=== PATIENT | male | born 1955 | race Caucasian/White ===

== ENCOUNTER 2022-01-10 13:52 | Inpatient (IN) ==
[2022-01-10 15:00] LABS: Basophils # (auto) 0.05 K/uL (0-0.2); Basophils % (auto) 0.5 %; Eosinophils # (auto) 0.38 K/uL (0-0.5); Eosinophils % (auto) 3.9 %; Hematocrit (blood only) 31.1 % (42-52); Hemoglobin 10.1 g/dL (14.0-18.0); Immature Granulocytes # (auto) 0.08 K/uL (0.00-0.02); Immature Granulocytes % (auto) 0.8 %; Lymphocytes # (auto) 1.38 K/uL (1.2-3.4); Lymphocytes % (auto) 14.3 %; Mean Corpuscular Hemoglobin 32.2 pg (25-34); Mean Corpuscular Hgb Conc 32.5 g/dL (32-36); Mean Platelet Volume 9.8 fL (7.4-10.4); Monocytes # (auto) 1.08 K/uL (0.11-0.59); Monocytes % (auto) 11.2 %; Neutrophils # (auto) 6.71 K/uL (1.4-6.5); Neutrophils % (auto) 69.3 %; Platelet Count 197 K/uL (130-400); RDW Coefficient of Variation 16.6 % (11.5-14.5); RDW Standard Deviation 59.8 fL (36.4-46.3); Red Blood Count 3.14 M/uL (4.7-6.1); White Blood Count 9.68 K/uL (4.8-10.8)
[2022-01-10 15:13] LABS: INR 1.3 (0.9-1.1); Partial Thromboplastin Ratio 1.2; Prothrombin Time 12.8 Seconds (9.0-12.0)
[2022-01-10 15:28] LABS: Troponin I < 0.03 ng/ml (0-0.04)
[2022-01-10 15:29] LABS: Alanine Aminotransferase 14 U/L (7-52); Albumin Level 3.7 gm/dl (3.4-5.0); Alkaline Phosphatase 90 U/L (34-104); Anion Gap 8 (3-11); Aspartate Aminotransferase 37 U/L (13-39); BUN Creatinine Ratio 22.1 (10-20); Blood Urea Nitrogen 34 mg/dl (6-23); Calcium 9.3 mg/dl (8.5-10.1); Carbon Dioxide 32 mmol/L (21-32); Chloride 96 mmol/L (98-107); Creatinine Clr Calc Pharmacy 68.3 ml/min; Est GFR (African American) 54.5 ml/min; Globulin 3.7 gm/dl (2.5-4.0); Glucose 117 mg/dl (70-99(Fasting)); Potassium 3.8 mmol/L (3.5-5.1); Sodium 136 mmol/L (136-145); Total Protein 7.4 gm/dl (6.0-8.3)
--- NOTE | 2022-01-10 16:57 | Emergency Department Note ---
History of Present Illness General Chief complaint: Swelling/Edema to Extremity Stated complaint: FLUID IN BOTH LEGS,BELLY Time Seen by Provider: 01/10/22 16:35 Source: patient and family Mode of arrival: wheelchair Limitations: no limitations History of Present Illness Provider complaint: Edema, weight gain, shortness of breath Onset (ago): month(s) Treatments prior to arrival: none This is a 66-year-old male presents emergency family complaining of worsening edema and weight gain. Patient states he has had increased edema over the course of the last 4 months despite taking diuretic as an outpatient. Patient has previously had lower extremity edema and some mild abdominal edema which has previously responded to diuretics, however now he feels that it is no longer helping and he is continued to gain approximately 50 to 60 pounds. Patient states he has difficulty with any movement, can no longer perform ADLs independently, has dyspnea with any movement or exertion. Patient was scheduled to start seeing nephrology, Dr. Cobb, however due to worsening symptoms today, they came to the emergency room. Patient states he is taking Bumex twice a day. Patient's states that been following with wound care due to sores and open wounds to the lower extremities secondary to the worsening edema. Pt seen during a time of high acuity and national emergency pandemic while wearing PPE. Home Medications Medication Instructions Recorded Confirmed Type allopurinol 300 mg tablet 300 mg PO DAILY 08/06/21 01/10/22 History epinephrine 0.3 mg/0.3 mL 0.3 mg IM Q10M PRN #2 ea 08/06/21 01/10/22 Rx injection, auto-injector (EpiPen 2-Sb) mesalamine 0.375 gram 1.5 g PO DAILY 08/06/21 01/10/22 History capsule,extended release 24 hr potassium chloride 20 mEq 40 meq PO BID tab 08/06/21 01/10/22 History tablet,extended release tadalafil 20 mg tablet 20 mg PO DAILY PRN 08/06/21 01/10/22 History metoprolol succinate 100 mg 50 mg PO BID tab 09/05/21 01/10/22 History tablet,extended release 24 hr ondansetron 4 mg disintegrating 4 mg PO Q8H PRN 09/05/21 01/10/22 History tablet magnesium oxide 250 mg PO DAILY #30 tab 11/09/21 01/10/22 Rx levothyroxine 100 mcg tablet 100 mcg PO DAILY #30 tab 11/29/21 01/10/22 Rx bumetanide 1 mg tablet 2 mg PO BID 01/10/22 01/10/22 History triamcinolone acetonide 0.1 % 1 applic TOPICAL DAILY PRN 01/10/22 01/10/22 History topical ointment Allergies Allergy/AdvReac Type Severity Reaction Status Date / Time bee venom protein (honey bee) Allergy Severe DYSPNEA;SWE Verified 01/03/22 13:37 LLING Penicillins Allergy Unknown Verified 01/03/22 13:37 Past Med/Surg History Medical History Cancer of appendix Paroxysmal A-fib Surgical History H/O hernia repair (12/04/12) H/O laparoscopy H/O left knee surgery H/O lymph node excision H/O right hemicolectomy History of removal of Port-a-Cath Status post ablation of atrial flutter (12/04/12) 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) Family History Grandmother (Paternal) Colorectal cancer Father Myocardial infarction Prostate cancer Denies family history of Ovarian cancer Dementia Breast cancer Social History Smoking Status: Never smoker Second Hand Exposure: No; Hx Alcohol Use: No Hx Substance Use: No Preferred Language: Samoan Communication Ability: Effective Visual Impairment: Limited Hearing Ability: Normal 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 Beliefs That Will Affect Care: None marital status: Current Living Situation: Spouse current occupational status: retired How many Children do You have: 2 Feels Safe at Home: Yes Safety Concerns: Feels Safe At This Time Childhood Exposure to Second-Hand Smoke: No Diet Comment: 2000 cc fluid restriction during the past year weight has: increased > 10 lbs Dental Care, Regularly: Yes Physical Activity Frequency: Daily Seatbelt Use: always Sunscreen Use: Yes Assistive Devices: None Review of Systems A total of 10 systems reviewed and were otherwise negative All systems reviewed & are unremarkable except as noted in HPI & below Physical Exam Vital Signs Vital Signs - 24 hr 01/10/22 13:59 01/10/22 17:30 Temperature 37.0 C Temperature Source Skin Pulse Rate 80 Pulse Rate [Left] 70 Pulse Rhythm [Left] Regular Pulse Strength [Left] Normal Respiratory Rate 20 18 Respiratory Effort / Characteristics Non-Labored Spontaneous Non-Labored Spontaneous Respiratory Depth Normal Shallow Respiratory Pattern Regular Blood Pressure 144/77 H Blood Pressure [Right Arm] 141/75 H Blood Pressure Mean 99 Blood Pressure Mean [Right Arm] 97 Blood Pressure Position [Right Arm] Lying Pulse Oximetry 94 95 Oxygen Delivery Method Room Air Room Air Sepsis Recent Fever Within 48 Hours No Sepsis New/Unexplained Change in Mental Status N/A Sepsis Action Taken by Nursing No Action Required GENERAL: alert, well appearing, well nourished, no distress, BMI 45 EYE EXAM: normal conjunctiva, PERRL and EOM's grossly intact OROPHARYNX: no exudate, no erythema, lips, buccal mucosa, and tongue normal and mucous membranes are moist NECK: supple, no nuchal rigidity, no adenopathy, non-tender LUNGS: Clear to auscultation. Normal chest wall mechanics, no w/r/r HEART: no murmurs, S1 normal and S2 normal ABDOMEN: abdomen soft, non-tender, normo-active bowel sounds, no masses, no rebound or guarding. Well-healed vertical midline incision consistent with prior surgery. Edema noted to the lower abdominal wall. BACK: Back is symmetrical on inspection and there is no deformity, no midline tenderness, no CVA tenderness. SKIN: no rashes and no bruising UPPER EXTREMITIES: upper extremities are grossly normal. FROM, nml pulses b/l. LOWER EXTREMITIES: 3+ b/l pitting edema. Legs wrapped bilaterally, blisters noted. FROM, nml pulses b/l. NEURO EXAM: Normal sensorium, cranial nerves II-XII grossly intact, normal speech, no gross weakness of arms, no gross weakness of legs. Gross sensation intact. Course Course 1824: Discussed with hospitalist team. Administered Medications Acetaminophen (Acetaminophen 325 Mg Tab) 650 mg PO Q4H PRN PRN Reason: Pain or Fever Stop: 02/09/22 22:50 Last Admin: 01/11/22 16:20 Dose: 650 mg Documented by: [id number] Enoxaparin Sodium (Enoxaparin Inj 40 Mg/0.4 Ml Syr) 40 mg SQ Q12H KALLI Stop: 02/09/22 22:59 Last Admin: 01/11/22 22:04 Dose: 40 mg Documented by: [id number] Admin: 01/11/22 11:28 Dose: 40 mg Documented by: [id number] Admin: 01/11/22 01:07 Dose: 40 mg Documented by: [id number] Bumetanide 10 mg/ Dextrose 50 mls @ 3.5 mls/hr IV .[id number] KALLI Stop: 02/09/22 19:09 Last Admin: 01/11/22 12:30 Dose: 0.5 mg/hr, 2.5 mls/hr Documented by: [id number] Infusion: 01/11/22 12:30 Dose: 0.5 mg/hr, 2.5 mls/hr Documented by: [id number] Admin: 01/10/22 20:54 Dose: 0.5 mg/hr, 2.5 mls/hr Documented by: [id number] Levothyroxine Sodium (Levothyroxine Sodium 100 Mcg Tablet) 100 mcg PO DAILYBB [facility] Stop: 02/10/22 06:29 Last Admin: 01/11/22 05:46 Dose: 100 mcg Documented by: [id number] Magnesium Oxide (Magnesium Oxide 400 Mg Tab) 400 mg PO DAILY KALLI Stop: 02/10/22 08:59 Last Admin: 01/11/22 07:48 Dose: 400 mg Documented by: [id number] Metoprolol Succinate (Metoprolol Succ 50mg Ext Rel Tab) 50 mg PO BID KALLI Stop: 02/09/22 22:50 Last Admin: 01/11/22 22:04 Dose: 50 mg Documented by: [id number] Admin: 01/11/22 07:48 Dose: 50 mg Documented by: [id number] Admin: 01/10/22 23:44 Dose: 50 mg Documented by: [id number] Potassium Chloride (Potassium Chloride Crtab 20 Meq Tabcr) 40 meq PO TID KALLI Stop: 02/09/22 22:50 Last Admin: 01/11/22 22:04 Dose: 40 meq Documented by: [id number] Admin: 01/11/22 13:52 Dose: 40 meq Documented by: [id number] Admin: 01/11/22 07:48 Dose: 40 meq Documented by: [id number] Admin: 01/10/22 23:43 Dose: 40 meq Documented by: [id number] Discontinued Medications Famotidine (Famotidine 10 Mg Tablet) 10 mg PO NOW ONE Stop: 01/11/22 23:28 Last Admin: 01/12/22 01:07 Dose: 10 mg Documented by: [id number] Ioversol (Optiray 320 125ml) 117 ml IV ONCE ONE Stop: 01/10/22 17:35 Last Admin: 01/10/22 17:37 Dose: 117 ml Documented by: [id number] Medical Decision Making Differential Diagnosis CHF, DVT, nephrotic syndrome, ANNA, obesity, dietary, chronic lymphedema, as well as others were considered. Medical Records Attestation: I reviewed the patient's medical records. Home Medications Current Medication List: was personally reviewed by me Laboratory Data Attestation: I reviewed the patient's lab results. Result diagrams: 01/11/22 06:29 01/11/22 06:29 Lab Results 01/10/22 01/10/22 01/10/22 Range/Units 14:45 14:45 14:45 WBC 9.68 (4.8-10.8) K/uL RBC 3.14 L (4.7-6.1) M/uL Hgb 10.1 L (14.0-18.0) g/dL Hct 31.1 L (42-52) % MCV 99.0 (80-100) fL MCH 32.2 (25-34) pg MCHC 32.5 (32-36) g/dL RDW Std Deviation 59.8 H (36.4-46.3) fL RDW Coeff of Howie 16.6 H (11.5-14.5) % Plt Count 197 (130-400) K/uL MPV 9.8 (7.4-10.4) fL Immature Gran % (Auto) 0.8 % Neut % (Auto) 69.3 % Lymph % (Auto) 14.3 % [place] % (Auto) 11.2 % Eos % (Auto) 3.9 % Baso % (Auto) 0.5 % Neut # (Auto) 6.71 H (1.4-6.5) K/uL Lymph # (Auto) 1.38 (1.2-3.4) K/uL [place] # (Auto) 1.08 H (0.11-0.59) K/uL Eos # (Auto) 0.38 (0-0.5) K/uL Baso # (Auto) 0.05 (0-0.2) K/uL Immature Gran # (Auto) 0.08 H (0.00-0.02) K/uL PT 12.8 H (9.0-12.0) Seconds INR 1.3 H (0.9-1.1) APTT 31.0 (21.0-31.0) Seconds PTT Ratio 1.2 Sodium 136 (136-145) mmol/L Potassium 3.8 (3.5-5.1) mmol/L Chloride 96 L (98-107) mmol/L Carbon Dioxide 32 (21-32) mmol/L Anion Gap 8 (3-11) BUN 34 H (6-23) mg/dl Creatinine 1.54 H (0.6-1.4) mg/dl Est Cr Clr Drug Dosing 68.3 ml/min Est GFR ( Amer) 54.5 ml/min Est GFR (Non-Af Amer) 47.0 ml/min BUN/Creatinine Ratio 22.1 H (10-20) Glucose 117 H (70-99(Fasting)) mg/dl Calcium 9.3 (8.5-10.1) mg/dl Magnesium (1.7-2.4) mg/dl Total Bilirubin 2.0 H (0.2-1.0) mg/dl AST 37 (13-39) U/L ALT 14 (7-52) U/L Alkaline Phosphatase 90 (34-104) U/L Troponin I < 0.03 (0-0.04) ng/ml B-Natriuretic Peptide (0-100) pg/ml Total Protein 7.4 (6.0-8.3) gm/dl Albumin 3.7 (3.4-5.0) gm/dl Globulin 3.7 (2.5-4.0) gm/dl Albumin/Globulin Ratio 1.0 (0.9-2) SARS-CoV-2, RNA, NAAT (NEGATIVE) 01/10/22 01/10/22 01/10/22 Range/Units 14:45 17:52 18:40 WBC (4.8-10.8) K/uL RBC (4.7-6.1) M/uL Hgb (14.0-18.0) g/dL Hct (42-52) % MCV (80-100) fL MCH (25-34) pg MCHC (32-36) g/dL RDW Std Deviation (36.4-46.3) fL RDW Coeff of Howie (11.5-14.5) % Plt Count (130-400) K/uL MPV (7.4-10.4) fL Immature Gran % (Auto) % Neut % (Auto) % Lymph % (Auto) % [place] % (Auto) % Eos % (Auto) % Baso % (Auto) % Neut # (Auto) (1.4-6.5) K/uL Lymph # (Auto) (1.2-3.4) K/uL [place] # (Auto) (0.11-0.59) K/uL Eos # (Auto) (0-0.5) K/uL Baso # (Auto) (0-0.2) K/uL Immature Gran # (Auto) (0.00-0.02) K/uL PT (9.0-12.0) Seconds INR (0.9-1.1) APTT (21.0-31.0) Seconds PTT Ratio Sodium (136-145) mmol/L Potassium (3.5-5.1) mmol/L Chloride (98-107) mmol/L Carbon Dioxide (21-32) mmol/L Anion Gap (3-11) BUN (6-23) mg/dl Creatinine (0.6-1.4) mg/dl Est Cr Clr Drug Dosing ml/min Est GFR ( Amer) ml/min Est GFR (Non-Af Amer) ml/min BUN/Creatinine Ratio (10-20) Glucose (70-99(Fasting)) mg/dl Calcium (8.5-10.1) mg/dl Magnesium 2.1 (1.7-2.4) mg/dl Total Bilirubin (0.2-1.0) mg/dl AST (13-39) U/L ALT (7-52) U/L Alkaline Phosphatase (34-104) U/L Troponin I (0-0.04) ng/ml B-Natriuretic Peptide 641 H (0-100) pg/ml Total Protein (6.0-8.3) gm/dl Albumin (3.4-5.0) gm/dl Globulin (2.5-4.0) gm/dl Albumin/Globulin Ratio (0.9-2) SARS-CoV-2, RNA, NAAT POSITIVE A* (NEGATIVE) Imaging Data Radiologist's Impression: Abdomen/Pelvis CT 01/10/22 17:04 CT ANGIOGRAM OF THE CHEST; CT SCAN OF THE ABDOMEN AND PELVIS WITH IV CONTRAST CLINICAL HISTORY: Dyspnea. Weight gain. Lower extremity edema. COMPARISON STUDY: CT scan of the chest, abdomen, and pelvis dated 11/29/2015. TECHNIQUE: Following the IV administration of 117 of Optiray 320, CT angiogram of the chest is performed from the upper abdomen to the thoracic inlet utilizing the pulmonary embolus protocol. Images are reviewed in the axial, sagittal, coronal planes. 3-D MIPS images are created and assessed. Subsequently, CT scan of the abdomen and pelvis was performed from the lung bases to the proximal femora. Images are reviewed in the axial, sagittal, and coronal planes. IV contrast was administered without complication. A dose lowering technique was utilized adhering to the principles of ALARA. CT DOSE: 2505.63 mGy.cm FINDINGS: CHEST: Thyroid: Mildly enlarged and heterogeneous. Thoracic aorta: There is atherosclerotic calcification of the thoracic aorta, which is normal in caliber and demonstrates standard 3-vessel arch anatomy. No dissection is seen. Pulmonary vasculature: The pulmonary trunk is normal in caliber. There are no filling defects identified in the main, lobar, or segmental pulmonary arteries to indicate pulmonary embolus. Heart: The heart is enlarged and without pericardial effusion. There are scattered coronary artery calcifications. Lungs and pleural spaces: There is no airspace consolidation or pleural effusion. Scarring/atelectasis is noted at the lung bases. The trachea and ce ntral airways are clear. Mediastinum: There are numerous subcentimeter mediastinal lymph nodes which are not pathologically enlarged by size criteria. Vivian: Clear. Axillae: There is no axillary lymphadenopathy. Bony thorax: The skeletal structures are osteopenic. Spondylotic change is seen throughout the thoracic spine. No lytic or blastic lesions are identified. Soft tissues: There is anasarca of the body wall. Gynecomastia is noted. ABDOMEN AND PELVIS: Liver: The contrast-enhanced liver is mildly enlarged and demonstrates heterogeneously diminished attenuation consistent with steatosis. Nodularity of the surface contour indicates early change of cirrhosis. There is no intrahepatic or ductal dilatation. The hepatic veins and portal veins are patent. Gallbladder: Mild gallbladder wall thickening is nonspecific and likely related to cirrhosis and ascites. Spleen: The spleen is enlarged measuring 13.7 cm in length. A calcified granuloma is noted in the spleen. Pancreas: Moderately atrophic and grossly unremarkable. Adrenal glands: Unremarkable. Kidneys: The contrast enhanced kidneys demonstrate mild cortical atrophy and are without hydronephrosis. The kidneys enhance symmetrically. Abdominal vasculature: The abdominal aorta is normal in course and caliber noting moderate to advanced atherosclerotic calcification. Stomach and bowel: The gastric mucosa appears mildly thickened and hyperemic. There is postoperative change from right hemicolectomy with ileocolic anastomosis. No bowel obstruction is seen. The appendix is surgically absent Peritoneum: There is a small volume of abdominopelvic ascites. No intraperitoneal free air is seen. There are mesenteric venous collaterals. A midline surgical scar is noted. Lymphadenopathy: There are numerous prominent mesenteric lymph nodes, likely on a reactive basis. There are shotty retroperitoneal lymph nodes. Pelvic viscera: Evaluation of the pelvis is significantly degraded by streak artifact from bilateral hip arthroplasties. The prostate gland is not well- visualized due to streak artifact. The bladder is distended, the wall appears thickened/trabeculated indicating chronic outlet obstruction. Skeletal structures: The skeletal structures are osteopenic. There is mild to moderate lumbosacral spondylosis. No lytic or blastic lesions are seen. Bilateral hip arthroplasties are in place. Soft tissues: There is anasarca of the body wall. IMPRESSION: 1. There is no evidence of pulmonary embolus in the main, lobar, or segmental pulmonary arteries. 2. There is no airspace consolidation or pleural effusion. 3. Cardiomegaly. 4. There is anasarca of the body wall. 5. The liver is enlarged, steatotic, and shows morphologic changes of cirrhosis. 6. Splenomegaly. 7. Small volume of abdominopelvic ascites. 8. Question gastritis. Clinical correlation will be required. 9. Additional findings as above. ACT 112: Negative or not required by law. Electronically signed by: Xiang Pedraza M.D. 01/10/2022 6:04 PM Chest CTA 01/10/22 17:04 CT ANGIOGRAM OF THE CHEST; CT SCAN OF THE ABDOMEN AND PELVIS WITH IV CONTRAST CLINICAL HISTORY: Dyspnea. Weight gain. Lower extremity edema. COMPARISON STUDY: CT scan of the chest, abdomen, and pelvis dated 11/29/2015. TECHNIQUE: Following the IV administration of 117 of Optiray 320, CT angiogram of the chest is performed from the upper abdomen to the thoracic inlet utilizing the pulmonary embolus protocol. Images are reviewed in the axial, sagittal, coronal planes. 3-D MIPS images are created and assessed. Subsequently, CT scan of the abdomen and pelvis was performed from the lung bases to the proximal femora. Images are reviewed in the axial, sagittal, and coronal planes. IV contrast was administered without complication. A dose lowering technique was utilized adhering to the principles of ALARA. CT DOSE: 2505.63 mGy.cm FINDINGS: CHEST: Thyroid: Mildly enlarged and heterogeneous. Thoracic aorta: There is atherosclerotic calcification of the thoracic aorta, which is normal in caliber and demonstrates standard 3-vessel arch anatomy. No dissection is seen. Pulmonary vasculature: The pulmonary trunk is normal in caliber. There are no filling defects identified in the main, lobar, or segmental pulmonary arteries to indicate pulmonary embolus. Heart: The heart is enlarged and without pericardial effusion. There are scattered coronary artery calcifications. Lungs and pleural spaces: There is no airspace consolidation or pleural effusion . Scarring/atelectasis is noted at the lung bases. The trachea and central airways are clear. Mediastinum: There are numerous subcentimeter mediastinal lymph nodes which are not pathologically enlarged by size criteria. Vivian: Clear. Axillae: There is no axillary lymphadenopathy. Bony thorax: The skeletal structures are osteopenic. Spondylotic change is seen throughout the thoracic spine. No lytic or blastic lesions are identified. Soft tissues: There is anasarca of the body wall. Gynecomastia is noted. ABDOMEN AND PELVIS: Liver: The contrast-enhanced liver is mildly enlarged and demonstrates heter ogeneously diminished attenuation consistent with steatosis. Nodularity of the surface contour indicates early change of cirrhosis. There is no intrahepatic or ductal dilatation. The hepatic veins and portal veins are patent. Gallbladder: Mild gallbladder wall thickening is nonspecific and likely related to cirrhosis and ascites. Spleen: The spleen is enlarged measuring 13.7 cm in length. A calcified granuloma is noted in the spleen. Pancreas: Moderately atrophic and grossly unremarkable. Adrenal glands: Unremarkable. Kidneys: The contrast enhanced kidneys demonstrate mild cortical atrophy and are without hydronephrosis. The kidneys enhance symmetrically. Abdominal vasculature: The abdominal aorta is normal in course and caliber notin g moderate to advanced atherosclerotic calcification. Stomach and bowel: The gastric mucosa appears mildly thickened and hyperemic. There is postoperative change from right hemicolectomy with ileocolic anastomosis. No bowel obstruction is seen. The appendix is surgically absent Peritoneum: There is a small volume of abdominopelvic ascites. No in traperitoneal free air is seen. There are mesenteric venous collaterals. A midline surgical scar is noted. Lymphadenopathy: There are numerous prominent mesenteric lymph nodes, likely on a reactive basis. There are shotty retroperitoneal lymph nodes. Pelvic viscera: Evaluation of the pelvis is significantly degraded by streak artifact from bilateral hip arthroplasties. The prostate gland is not well- visualized due to streak artifact. The bladder is distended, the wall appears thickened/trabeculated indicating chronic outlet obstruction. Skeletal structures: The skeletal structures are osteopenic. There is mild to m oderate lumbosacral spondylosis. No lytic or blastic lesions are seen. Bilateral hip arthroplasties are in place. Soft tissues: There is anasarca of the body wall. IMPRESSION: 1. There is no evidence of pulmonary embolus in the main, lobar, or segmental pulmonary arteries. 2. There is no airspace consolidation or pleural effusion. 3. Cardiomegaly. 4. There is anasarca of the body wall. 5. The liver is enlarged, steatotic, and shows morphologic changes of cirrhosis. 6. Splenomegaly. 7. Small volume of abdominopelvic ascites. 8. Question gastritis. Clinical correlation will be required. 9. Additional findings as above. ACT 112: Negative or not required by law. Electronically signed by: Xiang Pedraza M.D. 01/10/2022 6:04 PM ECG Data Attestation: I personally reviewed and interpreted this ECG as follows: Indication: + SOB/dyspnea and + weakness Rate (beats per minute): 76 Rhythm: + normal sinus ECG Intervals/blocks: + First degree AV block, + Right Bundle branch block and + Normal QT ECG [place]: + Left axis deviation ECG ST segments: + Nonspecific ST abnormalities MDM Narrative This is a 66-year-old male presents emergency department due to increased edema now to the point where he is unable to perform ADLs and is markedly dyspneic with exertion. Patient with a complicated past medical history including CML and dysrhythmia. Patient has been following with wound care due to the bilateral lower extremity lymphedema which has contributed to wounds and ulcerative areas. Patient now with diffuse pitting edema bilateral lower extremities in their entirety as well as pitting edema into the presacral low back area, lower abdomen, and scrotum. Patient was afebrile and hemodynamically stable. Labs drawn and sent which were reassuring. Patient's creatinine was elevated compared to prior. Case discussed with hospitalist for additional evaluation and management. An order was placed for continuous cardiac monitoring. The monitor shows a rate of _72_ with _normal sinus_ rhythm. Impression & Plan Anasarca, Elevated serum creatinine, SOB (shortness of breath) on exertion, CML (chronic myelocytic leukemia) Discharge Plan Visit Data Chief Complaint: Swelling/Edema to Extremity Stated Complaint: FLUID IN BOTH LEGS,BELLY ED Provider: Cheli Vasquez Discharge Problem: Anasarca, Elevated serum creatinine, SOB (shortness of breath) on exertion, CML (chronic myelocytic leukemia) Patient Disposition: Admitted As Inpatient Discharge Instructions Interventions: ED Discharge Assessment Last Done: 01/10/22 21:21
[2022-01-10] MEDS ORDERED: OPTIRAY 320 125ml IV ONE (17:34)
--- NOTE | 2022-01-10 18:05 | CT Scan Report ---
CT ANGIOGRAM OF THE CHEST; CT SCAN OF THE ABDOMEN AND PELVIS WITH IV CONTRAST CLINICAL HISTORY: Dyspnea. Weight gain. Lower extremity edema. COMPARISON STUDY: CT scan of the chest, abdomen, and pelvis dated 11/29/2015. TECHNIQUE: Following the IV administration of 117 of Optiray 320, CT angiogram of the chest is perfor med from the upper abdomen to the thoracic inlet utilizing the pulmonary embolus protocol. Images are reviewed in the axial, sagittal, coronal planes. 3-D MIPS images are created and assessed. Subsequen tly, CT scan of the abdomen and pelvis was performed from the lung bases to the proximal femora. Imag es are reviewed in the axial, sagittal, and coronal planes. IV contrast was administered without comp lication. A dose lowering technique was utilized adhering to the principles of ALARA. CT DOSE: 2505.63 mGy.cm FINDINGS: CHEST: Thyroid: Mildly enlarged and heterogeneous. Thoracic aorta: There is atherosclerotic calcification of the thoracic aorta, which is normal in shirley celia and demonstrates standard 3-vessel arch anatomy. No dissection is seen. Pulmonary vasculature: The pulmonary trunk is normal in caliber. There are no filling defects identif ied in the main, lobar, or segmental pulmonary arteries to indicate pulmonary embolus. Heart: The heart is enlarged and without pericardial effusion. There are scattered coronary artery ca lcifications. Lungs and pleural spaces: There is no airspace consolidation or pleural effusion. Scarring/atelectasi s is noted at the lung bases. The trachea and central airways are clear. Mediastinum: There are numerous subcentimeter mediastinal lymph nodes which are not pathologically en larged by size criteria. Vivian: Clear. Axillae: There is no axillary lymphadenopathy. Bony thorax: The skeletal structures are osteopenic. Spondylotic change is seen throughout the thorac ic spine. No lytic or blastic lesions are identified. Soft tissues: There is anasarca of the body wall. Gynecomastia is noted. ABDOMEN AND PELVIS: Liver: The contrast-enhanced liver is mildly enlarged and demonstrates heterogeneously diminished att enuation consistent with steatosis. Nodularity of the surface contour indicates early change of cirrh osis. There is no intrahepatic or ductal dilatation. The hepatic veins and portal veins are patent. Gallbladder: Mild gallbladder wall thickening is nonspecific and likely related to cirrhosis and asci andrea. Spleen: The spleen is enlarged measuring 13.7 cm in length. A calcified granuloma is noted in the spl een. Pancreas: Moderately atrophic and grossly unremarkable. Adrenal glands: Unremarkable. Kidneys: The contrast enhanced kidneys demonstrate mild cortical atrophy and are without hydronephros is. The kidneys enhance symmetrically. Abdominal vasculature: The abdominal aorta is normal in course and caliber noting moderate to advance d atherosclerotic calcification. Stomach and bowel: The gastric mucosa appears mildly thickened and hyperemic. There is postoperative change from right hemicolectomy with ileocolic anastomosis. No bowel obstruction is seen. The appendi x is surgically absent Peritoneum: There is a small volume of abdominopelvic ascites. No intraperitoneal free air is seen. T here are mesenteric venous collaterals. A midline surgical scar is noted. Lymphadenopathy: There are numerous prominent mesenteric lymph nodes, likely on a reactive basis. The re are shotty retroperitoneal lymph nodes. Pelvic viscera: Evaluation of the pelvis is significantly degraded by streak artifact from bilateral hip arthroplasties. The prostate gland is not well-visualized due to streak artifact. The bladder is distended, the wall appears thickened/trabeculated indicating chronic outlet obstruction. Skeletal structures: The skeletal structures are osteopenic. There is mild to moderate lumbosacral sp ondylosis. No lytic or blastic lesions are seen. Bilateral hip arthroplasties are in place. Soft tissues: There is anasarca of the body wall. IMPRESSION: 1. There is no evidence of pulmonary embolus in the main, lobar, or segmental pulmonary arteries. 2. There is no airspace consolidation or pleural effusion. 3. Cardiomegaly. 4. There is anasarca of the body wall. 5. The liver is enlarged, steatotic, and shows morphologic changes of cirrhosis. 6. Splenomegaly. 7. Small volume of abdominopelvic ascites. 8. Question gastritis. Clinical correlation will be required. 9. Additional findings as above. ACT 112: Negative or not required by law. Electronically signed by: Xiang Pedraza M.D. 01/10/2022 6:04 PM
--- NOTE | 2022-01-10 19:40 | History & Physical Report ---
Date of Service January 10, 2022 Assessment & Plan (1) Anasarca: (2) Hypertension: (3) Hypothyroidism: (4) Lymphedema: (5) CML (chronic myelocytic leukemia): (6) Atrial flutter: (7) CKD (chronic kidney disease): Plan: 66 yo M Hx atrial flutter, HTN, hypothyroidism, CML, chronic lymphedema admitted for anasarca impeding patient's ability to walk and perform ADLs. Anasarca: - Presents with several months of worsening edema, with significant pitting edema to the level of the abdomen. - No evidence of CHF on exam. - Last Echo 10/2021 without evidence of LV dysfunction. - Does admit to some dietary indiscretion with regard to salt intake. - Also has a history of lymph node removal in the abdomen/pelvis causing some chronic lymphedema. - Given significant fluid overload in extremities will start Bumex gtt starting at 0.5mg/hr with repeat BMP in AM. - Strict intake and output with Vela. Will consult Urology if necessary for difficult Vela placement given scrotal edema. - Low sodium diet with 1500mL fluid restriction. CKD, Hypokalemia: - History of, with baseline creatinine 1.3-1.5. On admission with creatinine 1.5. - K 3.8 on admission. Home KCl increased to 40mg PO TID in the setting of increased diuretics. - Repeat BMP in AM given robust diuresis. - Did discuss the possibility that patient may require dialysis as last resort should either the diuretic not remove the fluid, or if the diuresis results in kidney injury. - Nephrology consulted and appreciate recommendations. Atrial flutter: - History of, on rate control therapy. Previously underwent ablation and is currently in sinus rhythm. - Continue metoprolol succinate 50mg PO BID. - Not on DOAC due to history of significant GI bleed requiring hospitalization and over 5 units of blood for stabilization. Chronic myelocytic leukemia, appendiceal cancer: - Diagnosed with CML in 2010; not currently on medical therapy but with intention to start Gleevec in the near future. - Diagnosed with appendiceal cancer in 2011, s/p right hemicolectomy and significant pelvic lymph node removal which were negative for mets. - CBC without any belén abnormalities save for chronic anemia; Hgb stable. Hypothyroidism: - Continue levothyroxine. COVID-19: - Incidentally noted to be COVID-19 positive on admission testing. - Asymptomatic, therefore no medical intervention at this time. Code Status: FULL CODE FEN: Heart healthy, low sodium, fluid restriction to 1500cc DVT ppx: Lovenox SQ BID Dispo: Telemetry History of Present Illness Chief Complaint: body swelling Primary Care Provider: Israel Melton MD 66 yo M Hx atrial flutter, HTN, hypothyroidism, CML, chronic lymphedema presented to the ER for worsening of lower extremity, scrotal, and abdominal wall edema despite Bumex therapy. Patient endorses worsening of edema since July. At that time he reports weighing around 250 lbs and was only on Lasix 20mg PO as needed for weight gain. He was placed on daily Lasix, but continued to have weight gain. Several weeks ago he was placed on Bumex to try to "get the fluid off", but despite that he has continued to have fluid retention and measured 311 lbs in the ER. He was scheduled to see Dr. Giraldo today given his history of CKD and diuretic use, however he had a difficult time getting into the car due to the weight of his legs, and instead came to the ER for evaluation. In the ER patient noted to have normal vital signs, Hgb 10.1, creatinine 1.54, BNP 641. CT Chest, Abdomen, Pelvis without evidence of PE or p ulmonary edema. Imaging did note cirrhosis changes as well as a small volume of ascites. Today patient reports no chest pain, nausea, diarrhea, fevers, chills, URI symptoms. He does endorse some worsening dyspnea on exertion "due to all of the weight". He denies orthopnea. He reports that he tries to keep salty foods out of his diet, in that he does not add salt to foods. Some salt containing foods in his diet are as follows: for breakfast he will often have a [employer] breakfast sandwich. For lunch he will sometimes eat cold cut sandwiches. Last night he had pizza for dinner. Allergies Allergy/AdvReac Type Severity Reaction Status Date / Time bee venom protein (honey bee) Allergy Severe DYSPNEA;SWE Verified 01/03/22 13:37 LLING Penicillins Allergy Unknown Verified 01/03/22 13:37 Home Medications Medication Instructions Recorded Confirmed Type allopurinol 300 mg tablet 300 mg PO DAILY 08/06/21 01/10/22 History epinephrine 0.3 mg/0.3 mL 0.3 mg IM Q10M PRN #2 ea 08/06/21 01/10/22 Rx injection, auto-injector (EpiPen 2-Sb) mesalamine 0.375 gram 1.5 g PO DAILY 08/06/21 01/10/22 History capsule,extended release 24 hr potassium chloride 20 mEq 40 meq PO BID tab 08/06/21 01/10/22 History tablet,extended release tadalafil 20 mg tablet 20 mg PO DAILY PRN 08/06/21 01/10/22 History metoprolol succinate 100 mg 50 mg PO BID tab 09/05/21 01/10/22 History tablet,extended release 24 hr ondansetron 4 mg disintegrating 4 mg PO Q8H PRN 09/05/21 01/10/22 History tablet magnesium oxide 250 mg PO DAILY #30 tab 11/09/21 01/10/22 Rx levothyroxine 100 mcg tablet 100 mcg PO DAILY #30 tab 11/29/21 01/10/22 Rx bumetanide 1 mg tablet 2 mg PO BID 01/10/22 01/10/22 History triamcinolone acetonide 0.1 % 1 applic TOPICAL DAILY PRN 01/10/22 01/10/22 History topical ointment Past Med/Surg History Medical History Cancer of appendix Paroxysmal A-fib Surgical History H/O hernia repair (12/04/12) H/O laparoscopy H/O left knee surgery H/O lymph node excision H/O right hemicolectomy History of removal of Port-a-Cath Status post ablation of atrial flutter (12/04/12) 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) Family History Grandmother (Paternal) Colorectal cancer Father Myocardial infarction Prostate cancer Denies family history of Ovarian cancer Dementia Breast cancer Social History Smoking Status: Never smoker Second Hand Exposure: No; Hx Alcohol Use: No Hx Substance Use: No Preferred Language: Setswana Communication Ability: Effective Visual Impairment: Limited Hearing Ability: Normal Paper 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 Required: No Beliefs That Will Affect Care: None marital status: Current Living Situation: Spouse current occupational status: retired How many Children do You have: 2 Feels Safe at Home: Yes Safety Concerns: Feels Safe At This Time Childhood Exposure to Second-Hand Smoke: No Diet Comment: 2000 cc fluid restriction during the past year weight has: increased > 10 lbs Dental Care, Regularly: Yes Physical Activity Frequency: Daily Seatbelt Use: always Sunscreen Use: Yes Assistive Devices: None Review of Systems Review of Systems: All systems reviewed & are unremarkable except as noted in HPI & below Constitutional: + malaise; no fever and no chills Respiratory: no cough and no dyspnea Cardiovascular: + edema; no chest pain and no palpitations Gastrointestinal: no abdominal pain, no constipation and no diarrhea/loose stools Physical Exam Constitutional: WD/WN, vitals as above Eyes: PERRL, conjunctivae normal, anicteric sclerae ENMT: external ear and nose normal, oropharynx normal Neck: normal visual inspection Respiratory: normal respiratory effort, lungs clear to auscultation Cardiovascular: HR regular, non-tachycardic, 3/6 systolic murmur at RUSB Pitting edema 4+ to bilateral LE, and up to the level of the mid-abdomen Gastrointestinal (Abdomen): Inspection/Auscultation: + abdominal edema (To mid-abdomen) abdomen protuberant, normal bowel sounds, nontender to palpation Musculoskeletal: no cyanosis or clubbing, extremities motor strength 5/5 Skin: chronic venous stasis changes to bilateral LE, no evidence of cellulitis. Several small wounds on bilateral LE Neurologic: AAOx3, normal speech. PERRLA, EOMI, no nystagmus. Normal visual acuity bilaterally. Bilateral UE, LE, and face without sensory or motor deficits. DTRs normal. II- XII intact bilaterally. No pronator drift. No tremor. No ataxia. Psychiatric: A+Ox3, euthymic affect Results & Data Results & Data ([facility]) Vital Signs (Past 12 Hours) Vital Signs Temp Pulse Pulse Resp BP BP Pulse Ox 01/10/22 17:30 70 18 141/75 H 95 01/10/22 13:59 37.0 C 80 20 144/77 H 94 Code Status & VTE Plan VTE Prophylaxis Plan VTE Prophylaxis will be ordered: Yes Supervising Physician Co-Signing Physician Notes Dr. Barba was resident physician during care of patient. I separately evaluated patient for raza portions of the history and the exam. I was present during the critical portion of medical decision making, and I discussed the case with the resident. I generally agree with the findings and plan. Exertional dyspnea and volume overload secondary to Fluid retention likely secondary to chronic kidney disease and aspects of congestive heart failure.On high-dose diuretics will start Bumex infusion. Patient admits to dietary indiscretions and not tracking sodium intake.Incidental finding of COVID-19 positivity, not hypoxic at baseline no significant Covid treatment indicated at this time. Resident Activity Tracking Resident Involvement: Resident Care Provided Care Provided: Adult Hospital Medicine
[2022-01-10] MEDS: BUMETANIDE 10 MG in DEXTROSE 5% 10 ML IV SCH (20:54)
[2022-01-10] MEDS ORDERED: TRIAMCINOLONE ACET 0.1% OINT 15 GM TUBE TOP PRN (22:51)
[2022-01-10] MEDS: POTASSIUM CHLORIDE CRTAB 20 MEQ TABCR PO SCH (23:43)
[2022-01-10] MEDS: METOPROLOL SUCC 50MG EXT REL TAB PO SCH (23:44)
[2022-01-11] MEDS: ENOXAPARIN INJ 40 MG/0.4 ML SYR SQ SCH ×3 (01:07→22:04)
[2022-01-11] MEDS: LEVOTHYROXINE SODIUM 100 MCG TABLET PO SCH (05:46)
[2022-01-11 07:18] LABS: Basophils # (auto) 0.03 K/uL (0-0.2); Basophils % (auto) 0.3 %; Eosinophils # (auto) 0.35 K/uL (0-0.5); Eosinophils % (auto) 3.5 %; Hematocrit (blood only) 29.8 % (42-52); Hemoglobin 9.6 g/dL (14.0-18.0); Immature Granulocytes # (auto) 0.04 K/uL (0.00-0.02); Immature Granulocytes % (auto) 0.4 %; Lymphocytes # (auto) 1.33 K/uL (1.2-3.4); Lymphocytes % (auto) 13.3 %; Mean Corpuscular Hemoglobin 32.1 pg (25-34); Mean Corpuscular Hgb Conc 32.2 g/dL (32-36); Mean Corpuscular Volume 99.7 fL (80-100); Mean Platelet Volume 9.6 fL (7.4-10.4); Monocytes # (auto) 0.86 K/uL (0.11-0.59); Monocytes % (auto) 8.6 %; Neutrophils # (auto) 7.39 K/uL (1.4-6.5); Neutrophils % (auto) 73.9 %; Platelet Count 181 K/uL (130-400); RDW Coefficient of Variation 16.8 % (11.5-14.5); RDW Standard Deviation 60.8 fL (36.4-46.3); Red Blood Count 2.99 M/uL (4.7-6.1)
[2022-01-11 07:33] LABS: Calcium 9.2 mg/dl (8.5-10.1); Creatinine Clr Calc Pharmacy 71.9 ml/min; Est GFR (African American) 57.1 ml/min; Est GFR (Non-African American) 49.3 ml/min; Potassium 3.8 mmol/L (3.5-5.1)
[2022-01-11] MEDS: POTASSIUM CHLORIDE CRTAB 20 MEQ TABCR PO SCH ×3 (07:48→22:04)
[2022-01-11] MEDS: MAGNESIUM OXIDE 400 MG TAB PO SCH (07:48)
[2022-01-11] MEDS: METOPROLOL SUCC 50MG EXT REL TAB PO SCH ×2 (07:48→22:04)
--- NOTE | 2022-01-11 11:08 | Nephrology Consultation ---
Date of Consultation January 11, 2022 Assessment & Plan (1) CKD (chronic kidney disease): * Stable CKD. Baseline Cr 1.5. Renal impairment is likely on the basis of microvascular disease and poor renal perfusion associated w/ R heart failure * Will order urinalysis w/ UPCR. Note that albumin is wnl * 01/10 CTA of the chest was negative for PE. CTA of abdomen revealed bilateral cortical atrophy of the kidneys. No hydronephrosis * Monitor PRP (2) Peripheral edema: * Serum albumin 3.7 is inconsistent w/ nephrotic syndrome * Stasis dermatitis of LE suggest longstanding edema likely related to R heart failure * 01/[address] reveals cirrhosis of the liver related to [place] or nutmeg liver due to heart failure * 11/13 Echocardiogram: preserved LVEF, RV and TV poorly visualized due to body habitus * Suspect diuretic failure as outpatient due to dietary sodium indiscretion and poor intestinal absorption due to bowel wall edema * Low Na diet (1500 mg/day) * Agree w/ Bumex gtt. Continue 0.5mg/hr. Titrate as needed to obtain 2 L diuresis/day. If Bumex is titrated to 1mg/hr and UO drops, consider adding thiazide History of Present Illness Reason for Consultation: CKD, LE edema Attending Physician: Juan Rodriguez MD History of Present Illness Mr. Bashir is a 66 year old white male who is seen at the request of Dr. Rodriguez for evaluation of CKD, LE swelling. Medical records in the EMR were reviewed today and are summarized as follows: Mr. Bashir has CKD w/ baseline Cr 1.5 and EGFR 49 cc/min. He has not undergone Nephrology evaluation in the past. His medical history is significant for CML, appendiceal CA s/p R hemicolectomy, atrial fibrillation/flutter, hypothyroidism. He is obese (5ft 9in, wt 250 lbs) and has chronic LE lymphedema. As an outpatient his volume status was maintained w/ Bumetanide 2 mg po BID. He reports a 60 lb weight gain over the last 4 months. He developed progressive abdominal distention and tense LE swelling that limits his ability to ambulate. Mr. Bashir has been admitted to the hospitalist service and started on Bumex gtt at 0.5mg/hr. He has started to diurese. Of note, he did test + for COVID upon admission but remains asymptomatic. Allergies Allergy/AdvReac Type Severity Reaction Status Date / Time bee venom protein (honey bee) Allergy Severe DYSPNEA;SWE Verified 01/03/22 13:37 LLING Penicillins Allergy Unknown Verified 01/03/22 13:37 Home Medications Medication Instructions Recorded Confirmed Type allopurinol 300 mg tablet 300 mg PO DAILY 08/06/21 01/10/22 History epinephrine 0.3 mg/0.3 mL 0.3 mg IM Q10M PRN #2 ea 08/06/21 01/10/22 Rx injection, auto-injector (EpiPen 2-Sb) mesalamine 0.375 gram 1.5 g PO DAILY 08/06/21 01/10/22 History capsule,extended release 24 hr potassium chloride 20 mEq 40 meq PO BID tab 08/06/21 01/10/22 History tablet,extended release tadalafil 20 mg tablet 20 mg PO DAILY PRN 08/06/21 01/10/22 History metoprolol succinate 100 mg 50 mg PO BID tab 09/05/21 01/10/22 History tablet,extended release 24 hr ondansetron 4 mg disintegrating 4 mg PO Q8H PRN 09/05/21 01/10/22 History tablet magnesium oxide 250 mg PO DAILY #30 tab 11/09/21 01/10/22 Rx levothyroxine 100 mcg tablet 100 mcg PO DAILY #30 tab 11/29/21 01/10/22 Rx bumetanide 1 mg tablet 2 mg PO BID 01/10/22 01/10/22 History triamcinolone acetonide 0.1 % 1 applic TOPICAL DAILY PRN 01/10/22 01/10/22 History topical ointment Patient History Medical History Cancer of appendix Paroxysmal A-fib Surgical History H/O hernia repair (12/04/12) H/O laparoscopy H/O left knee surgery H/O lymph node excision H/O right hemicolectomy History of removal of Port-a-Cath Status post ablation of atrial flutter (12/04/12) 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) Family History Grandmother (Paternal) Colorectal cancer Father Myocardial infarction Prostate cancer Denies family history of Ovarian cancer Dementia Breast cancer Social History Smoking Status: Never smoker Second Hand Exposure: No; Hx Alcohol Use: No Hx Substance Use: No Preferred Language: Australian Communication Ability: Effective Visual Impairment: Limited Hearing Ability: Normal 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 Required: No Beliefs That Will Affect Care: None marital status: Current Living Situation: Spouse current occupational status: retired How many Children do You have: 2 Feels Safe at Home: Yes Safety Concerns: Feels Safe At This Time Childhood Exposure to Second-Hand Smoke: No Diet Comment: 2000 cc fluid restriction during the past year weight has: increased > 10 lbs Dental Care, Regularly: Yes Physical Activity Frequency: Daily Seatbelt Use: always Sunscreen Use: Yes Assistive Devices: None Review of Systems Constitutional: no fever Eyes: no worsening vision Ear, Nose, Mouth, Throat: no problem reported Respiratory: no cough and no dyspnea Cardiovascular: no chest pain Additional Comments: + tense LE swelling Gastrointestinal: no abdominal pain, no vomiting and no diarrhea/loose stools Genitourinary: no dysuria, no urinary hesitancy or no hematuria Musculoskeletal: no back pain Integumentary: no rash Neurologic: no falls, no dizziness and no confusion Physical Exam Constitutional: + morbidly obese Eyes: PERRL, conjunctivae normal, anicteric sclerae ENMT: external ear and nose normal, oropharynx normal Neck: trachea midline, no thyromegaly Respiratory: normal respiratory effort, lungs clear to auscultation Cardiovascular: Rate/Rhythm: regular rate and regular rhythm Extremities: + edema (tense pretibial edema) Gastrointestinal (Abdomen): Inspection/Auscultation: + abdomen distended Percussion/Palpation: + abdomen firm; abdomen nontender and no guarding Skin: stasis dermatitis of bilateral LE Neurologic: awake; not confused Results & Data ([facility]) Vital Signs (Past 12 Hours) Vital Signs Temp Pulse Pulse Resp BP Pulse Ox 01/11/22 08:00 74 01/11/22 07:47 36.8 C 82 18 174/75 H 99 01/11/22 02:55 36.7 C 79 20 127/63 97 01/10/22 23:57 75 Laboratory Results Laboratory Tests 12/20/21 01/10/22 01/11/22 11:30 14:45 06:29 WBC 10.00 Hgb 9.6 L Hct 29.8 L Plt Count 181 Sodium Potassium Chloride Carbon Dioxide BUN Creatinine Glucose Albumin 3.7 Free T4 1.2 01/11/22 06:29 WBC Hgb Hct Plt Count Sodium 137 Potassium 3.8 Chloride 97 L Carbon Dioxide 35 H BUN 34 H Creatinine 1.48 H Glucose 113 H Albumin Free T4 PG Care Time/CCT Total # of Minutes Spent Total Time Spent with Patient: Total time spent is greater than 50% in coordination of care (as documented) at patient's floor/unit and/or counseling patient: Coding Level of Care Code 61985 Inpt Consult Level 5 Diagnoses CKD (chronic kidney disease) N18.9 Peripheral edema R60.9
[2022-01-11 11:58] LABS: Appearance Urine Cloudy (Clear); Bacteria Urine Automated Negative (Negative); Bilirubin Urine Negative (Negative); Blood Urine 3+ (Negative); Color Urine Red; Epithelial Cell Urine Auto >30 /lpf (0-5); Glucose Urine UA Negative (Negative); Ketones Urine Negative (Negative); Leukocyte Esterase Urine 2+ (Negative); Nitrite Urine Negative (Negative); Protein Urine 1+ (Negative); RBC Urine Automated >30 /hpf (0-4); Specific Gravity Urine 1.015 (1.000-1.030); Urobilinogen Urine Negative (Negative); WBC Urine Automated >30 /hpf (0-5)
[2022-01-11 12:28] LABS: Creatinine Urine Random 61.3 mg/dl; Protein Creatinine Ratio Urine 0.9 (0-0.2)
[2022-01-11] MEDS: BUMETANIDE 10 MG in DEXTROSE 5% 10 ML IV SCH (12:30)
--- NOTE | 2022-01-11 15:22 | Electrocardiogram Report ---
Test Reason : Blood Pressure : / mmHG Vent. Rate : 076 BPM Atrial Rate : 076 BPM P-R Int : 204 ms QRS Dur : 122 ms QT Int : 442 ms P-R-T Axes : 034 -65 084 degrees QTc Int : 497 ms Normal sinus rhythm Left axis deviation Right bundle branch block Anteroseptal infarct (cited on or before 05-OCT-2012) Abnormal ECG When compared with ECG of 04-DEC-2012 14:50, Right bundle branch block is now Present Confirmed by Shaquille Ridley ([id number]) on 01/11/2022 3:22:10 PM Referred By: Confirmed By:Shaquille Ridley
[2022-01-11] MEDS: ACETAMINOPHEN 325 MG TAB PO PRN (16:20)
--- NOTE | 2022-01-11 20:32 | Hospitalist Progress Note ---
Date of Service January 11, 2022 Assessment & Plan (1) Anasarca: Plan: 66 yo M Hx atrial flutter, HTN, hypothyroidism, CML, chronic lymphedema admitted for anasarca impeding patient's ability to walk and perform ADLs. Anasarca: - Presents with several months of worsening edema, with significant pitting edema to the level of the abdomen. -- Reports worsening edema since July 2021 and reports weight of 250 lbs but reports progressive weight gain and currently at 316 lbs - No evidence of CHF on exam. - Last Echo 10/2021 without evidence of LV dysfunction. - Does admit to some dietary indiscretion with regard to salt intake. - Also has a history of lymph node removal in the abdomen/pelvis causing some chronic lymphedema. - Given significant fluid overload in extremities started Bumex gtt starting at 0.5mg/hr with goal of 2 L/day per nephrology - BMP in AM -- If Bumex titrated to 1 mg/hr and UO drops consider adding thiazide per nephrology - Strict intake and output with Vela. - Low sodium diet with 1500mL fluid restriction CKD, Hypokalemia: - History of, with baseline creatinine 1.3-1.5. On admission with creatinine 1.5. -- Suspect in setting of microvascular disease and poor renal perfusion related to R heart failure - K 3.8 on admission. Home KCl increased to 40mg PO TID in the setting of increased diuretics. - Repeat BMP in AM given robust diuresis. - Did discuss the possibility that patient may require dialysis as last resort should either the diuretic not remove the fluid, or if the diuresis results in kidney injury. - Nephrology consulted and appreciate recommendations -- Albumin 3.7 so inconsistent with nephrotic syndrome -- CT with cirrhosis of liver related to [place] or nutmeg liver due to heart failure -- Possibly diuretic failure due to dietary indiscretion and poor intestinal absorption due to bowel wall edema Atrial flutter: - History of, on rate control therapy. Previously underwent ablation and is currently in sinus rhythm. - Continue metoprolol succinate 50mg PO BID. - Not on DOAC due to history of significant GI bleed requiring hospitalization and over 5 units of blood for stabilization. Chronic myelocytic leukemia, appendiceal cancer: - Diagnosed with CML in 2010; not currently on medical therapy but with intention to start Gleevec in the near future. - Diagnosed with appendiceal cancer in 2011, s/p right hemicolectomy and significant pelvic lymph node removal which were negative for mets. - CBC without any belén abnormalities except for chronic anemia; Hgb stable. Hypothyroidism: - Continue levothyroxine. COVID-19: - Incidentally noted to be COVID-19 positive on admission testing. - Asymptomatic, therefore no medical intervention at this time. Code Status: FULL CODE FEN: Heart healthy, low sodium, fluid restriction to 1500cc DVT ppx: Lovenox SQ BID Dispo: Await adequate diuresis (2) CKD (chronic kidney disease): (3) Hypertension: (4) Lymphedema: (5) CML (chronic myelocytic leukemia): (6) Atrial flutter: (7) Hypothyroidism: Admission and Anticipated Discharge Date Admission Date: January 10, 2022 Subjective No acute events overnight. Is diuresing nicely today and is about at 2 L negative balance. He states he feels well. No respiratory concerns given COVID positivity. Only complaint is of wanting more water. Review of Systems Review of Systems: All systems reviewed & are unremarkable except as noted in Subjective Physical Exam Physical Exam: PHYSICAL EXAM General Appearance: WDWN in NAD who is A&O x 3 HEENT: Head is normocephalic/atraumatic; Hearing grossly intact Neck: Supple; Trachea midline; Neg JVD Heart: RRR with murmur Lungs: CTA in all lung andres bilaterally; Respirations unlabored; Neg accessory muscle use Abdomen: Soft, non-tender; Positive BS x 4 quadrants Extremities: Neg cyanosis; Large edematous and scaly legs bilaterally with 4+ pitting edema that extends to abdomen; skin thickened in lower extremities Neurological: Speech clear; Gross motor/sensory function intact; Neg focal neurologic deficits Psychiatric: Appropriate mood/affect Skin: Normal Color; Warm/Dry Results & Data Results & Data ([facility]) Vital Signs (Past 12 Hours) Vital Signs Temp Pulse Pulse Resp BP BP Pulse Ox 01/11/22 19:32 36.7 C 81 22 109/54 L 91 01/11/22 16:18 38.1 C H 92 H 22 156/61 H 90 01/11/22 16:00 88 01/11/22 11:29 37 C 80 20 138/68 90 PG Care Time/CCT Total # of Minutes Spent Total Time Spent with Patient: Total time spent is greater than 50% in coordination of care (as documented) at patient's floor/unit and/or counseling patient: Coding Level of Care Code 92582 Subseq Hosp Care Lvl 3 Diagnoses Anasarca R60.1 CKD (chronic kidney disease) N18.9 Hypertension I10 Lymphedema I89.0 CML (chronic myelocytic leukemia) C92.10 Atrial flutter I48.92 Hypothyroidism E03.9
[2022-01-11] MEDS ORDERED: FAMOTIDINE 10 MG TABLET PO ONE (23:27)
[2022-01-12] MEDS: LEVOTHYROXINE SODIUM 100 MCG TABLET PO SCH (06:26)
[2022-01-12 07:10] LABS: Calcium 8.8 mg/dl (8.5-10.1); Creatinine Clr Calc Pharmacy 54.2 ml/min; Est GFR (African American) 39.7 ml/min; Est GFR (Non-African American) 34.3 ml/min; Potassium 4.8 mmol/L (3.5-5.1)
--- NOTE | 2022-01-12 07:48 | Communication Note ---
Date of Service: January 12, 2022 Low UOP overnight. Increased rate of Bumex drip from 0.5/hr to 0.7/hr.
[2022-01-12] MEDS: METOPROLOL SUCC 50MG EXT REL TAB PO SCH ×2 (08:56→21:25)
[2022-01-12] MEDS: BUMETANIDE 10 MG in DEXTROSE 5% 10 ML IV SCH ×3 (08:56→19:39)
[2022-01-12] MEDS: POTASSIUM CHLORIDE CRTAB 20 MEQ TABCR PO SCH ×3 (08:56→21:25)
[2022-01-12] MEDS: MAGNESIUM OXIDE 400 MG TAB PO SCH (08:57)
[2022-01-12] MEDS ORDERED: Nursing to Pharmacy Communication SCH (10:30)
[2022-01-12] MEDS: ENOXAPARIN INJ 40 MG/0.4 ML SYR SQ SCH ×2 (11:21→22:22)
--- NOTE | 2022-01-12 11:22 | Nephrology Progress Note ---
Date of Service January 12, 2022 Assessment & Plan (1) Anasarca: (2) Acute kidney injury: (3) Chronic kidney disease, stage 3a: (4) Lymphedema: (5) Hypertension: Plan: 66-year-old gentlemen with h/o stage 3A CKD b/l Cr 1.5, CML, appendiceal CA s/p R hemicolectomy, atrial fibrillation/flutter, hypothyroidism admitted with progressive weight gain, lymphedema, anasarca over last 4 months. Reports almost 60 lb weight gain since July 2021. Was on Bumex 2 mg po BID as an outpatient without much response and developed progressive abdominal distention and tense LE swelling that limits his ability to ambulate. He was started on Bumex gtt at 0.5mg/hr. Of note, he did test + for COVID upon admission but remains asymptomatic. Urine analysis with low-grade proteinuria but serum albumin normal. Creatinine slowly started to increase over last few months while he was on high dose of diuretics, prior to that had pretty decent renal function. CT abdomen pelvis showed mild cortical atrophy but no hydronephrosis. There is concern for cirrhotic changes in liver. 2D echo showed normal EF, no significant LVH. LFTs were normal. Concern for right-sided heart failure. Initially urine output improved however overnight urine output dropped and has not been responding to higher dose of diuretics. -- increase Bumex to 1 mg/hour. If no improvement in next several hours, add metolazone 10 mg daily. Creatinine worsened to 2.0 this morning, may need to accept azotemia to improve volume status. If eventually diuretic fails, may need to consider ultrafiltration. -- encourage low-salt diet, elevate legs. -- Check electrolyte, magnesium, phosphate and renal function daily will follow Admission and Anticipated Discharge Date Admission Date: January 10, 2022 Subjective Mustapha was seen and evaluated this morning. He feels about the same, no shortness of breath or chest pain. Overall more than 1 L net negative since admission however overnight urine output dropped into Bumex drip was increased to 0.7 milligram/hour of but no improvement in urine output. Continues to have lymphedema, abdominal wall edema. Review of Systems Review of Systems: Detailed review of system was otherwise unremarkable except mentioned above. Physical Exam Constitutional: WD/WN, vitals as above + ill appearing and + edematous; no acute distress Eyes: + anicteric sclerae Neck: normal visual inspection Respiratory: no respiratory distress Auscultation: + diminished lung sounds Cardiovascular: Rate/Rhythm: regular rate and regular rhythm Heart Sounds: normal S1 and normal S2 Extremities: + edema Gastrointestinal (Abdomen): Inspection/Auscultation: + abdominal edema Percussion/Palpation: + ascites; abdomen nontender Skin: no rashes Neurologic: no focal motor deficits and not confused Psychiatric: Orientation: alert and oriented x 3 Results & Data ([facility]) Vital Signs (Past 12 Hours) Vital Signs Temp Pulse Resp BP Pulse Ox 01/12/22 07:05 36.7 C 77 19 115/55 L 97 01/12/22 04:21 36.8 C 72 18 107/51 L 96 PG Care Time/CCT Total # of Minutes Spent Total Time Spent with Patient: Total time spent is greater than 50% in coordination of care (as documented) at patient's floor/unit and/or counseling patient: Coding Level of Care Code 33687 Subseq Hosp Care Lvl 3 Diagnoses Anasarca R60.1 Acute kidney injury N17.9 Chronic kidney disease, stage 3a N18.31 Lymphedema I89.0 Hypertension I10
--- NOTE | 2022-01-12 15:02 | Hospitalist Progress Note ---
Date of Service January 12, 2022 Assessment & Plan (1) Anasarca: Plan: 66 yo M Hx atrial flutter, HTN, hypothyroidism, CML, chronic lymphedema admitted for anasarca impeding patient's ability to walk and perform ADLs. Anasarca: - Presents with several months of worsening edema, with significant pitting edema to the level of the top of abdomen. -- Reports worsening edema since July 2021 and reports weight of 250 lbs but reports progressive weight gain - No evidence of CHF on exam. - Last Echo 10/2021 without evidence of LV dysfunction but grade II pseudonormlization pattern diastolic dysfunction - Does admit to some dietary indiscretion with regard to salt intake. - Also has a history of lymph node removal in the abdomen/pelvis causing some chronic lymphedema. - Bumex gtt at 1 mg/hr with goal of 2 L/day per nephrology - BMP in AM -- Planning to add Metolazone if minimal urine output - 10 mg daily -- May ultimate need ultrafiltration; may have to accept some level of azotemia - Strict intake and output with Vela. - Low sodium diet with 1500mL fluid restriction CKD, Hypokalemia: - History of, with baseline creatinine 1.3-1.5. On admission with creatinine 1.5. -- Suspect in setting of microvascular disease and poor renal perfusion related to R heart failure - K 3.8 on admission. Use home dosing of K as not diuresing significantly right now and can adjust as needed - Repeat BMP in AM - Did discuss the possibility that patient may require dialysis/ultrafiltration - Nephrology consulted and appreciate recommendations -- Albumin 3.7 so inconsistent with nephrotic syndrome -- CT with cirrhosis of liver related to [place] or nutmeg liver due to heart failure -- Possibly diuretic failure due to dietary indiscretion and poor intestinal absorption due to bowel wall edema Atrial flutter: - History of, on rate control therapy. Previously underwent ablation and is currently in sinus rhythm. - Continue metoprolol succinate 50mg PO BID. - Not on DOAC due to history of significant GI bleed requiring hospitalization and over 5 units of blood for stabilization. Chronic myelocytic leukemia, appendiceal cancer: - Diagnosed with CML in 2010; not currently on medical therapy but with i ntention to start Gleevec in the near future. -- Of note - CT does show numerous mesenteric lymph nodes (likely reactive); shotty retroperitoneal lymph nodes as well - Diagnosed with appendiceal cancer in 2012, s/p right hemicolectomy and significant pelvic lymph node removal which were negative for mets. - CBC without any belén abnormalities except for chronic anemia; Hgb stable. Hypothyroidism: - Continue levothyroxine. COVID-19: - Incidentally noted to be COVID-19 positive on admission testing. - Asymptomatic, therefore no medical intervention at this time. Code Status: FULL CODE FEN: Heart healthy, low sodium, fluid restriction to 1500cc DVT ppx: Lovenox SQ BID Dispo: Await adequate diuresis (2) CKD (chronic kidney disease): (3) Hypertension: (4) Lymphedema: (5) CML (chronic myelocytic leukemia): (6) Atrial flutter: (7) Hypothyroidism: Admission and Anticipated Discharge Date Admission Date: January 10, 2022 Subjective No acute events overnight. Only about a negative 2 L fluid balance currently. States he feels like his abdomen is reducing in size a bit. No respiratory compromise. Mostly just hates the fluid restriction. Renal function slightly elevated this AM and will monitor. He is tolerating a diet without issue. Verbalizes no new complaints. Review of Systems Review of Systems: All systems reviewed & are unremarkable except as noted in Subjective Physical Exam Physical Exam: PHYSICAL EXAM General Appearance: WDWN in NAD who is A&O x 3 HEENT: Head is normocephalic/atraumatic; Hearing grossly intact Neck: Supple; Trachea midline; Neg JVD Heart: RRR with murmur Lungs: CTA in all lung andres bilaterally; Respirations unlabored; Neg accessory muscle use Abdomen: Soft, non-tender; Positive BS x 4 quadrants Extremities: Neg cyanosis; Large edematous and scaly legs bilaterally with 4+ pitting edema that extends to nearly the top of the abdomen; skin thickened in lower extremities Neurological: Speech clear; Gross motor/sensory function intact; Neg focal neurologic deficits Psychiatric: Appropriate mood/affect Skin: Normal Color; Warm/Dry Results & Data Results & Data ([facility]) Vital Signs (Past 12 Hours) Vital Signs Temp Pulse Pulse Resp BP Pulse Ox 01/12/22 11:22 36.6 C 78 20 120/56 L 92 01/12/22 08:00 77 01/12/22 07:05 36.7 C 77 19 115/55 L 97 01/12/22 04:21 36.8 C 72 18 107/51 L 96 PG Care Time/CCT Total # of Minutes Spent Total Time Spent with Patient: Total time spent is greater than 50% in coordination of care (as documented) at patient's floor/unit and/or counseling patient: Coding Level of Care Code 09931 Subseq Hosp Care Lvl 3 Diagnoses Anasarca R60.1 CKD (chronic kidney disease) N18.9 Hypertension I10 Lymphedema I89.0 CML (chronic myelocytic leukemia) C92.10 Atrial flutter I48.92 Hypothyroidism E03.9
[2022-01-12] MEDS: CHLOROTHIAZIDE SODIUM 500 MG in DEXTROSE 5% 50 ML IV SCH (17:25)
[2022-01-13] MEDS: LEVOTHYROXINE SODIUM 100 MCG TABLET PO SCH (05:44)
[2022-01-13] MEDS: BUMETANIDE 10 MG in DEXTROSE 5% 10 ML IV SCH ×2 (05:44→16:02)
[2022-01-13 06:32] LABS: Hematocrit (blood only) 30.4 % (42-52); Hemoglobin 9.6 g/dL (14.0-18.0); Mean Corpuscular Hemoglobin 31.7 pg (25-34); Mean Corpuscular Hgb Conc 31.6 g/dL (32-36); Mean Corpuscular Volume 100.3 fL (80-100); Mean Platelet Volume 9.6 fL (7.4-10.4); Platelet Count 158 K/uL (130-400); RDW Coefficient of Variation 16.9 % (11.5-14.5); RDW Standard Deviation 61.7 fL (36.4-46.3); Red Blood Count 3.03 M/uL (4.7-6.1); White Blood Count 12.14 K/uL (4.8-10.8)
[2022-01-13 06:51] LABS: Albumin Level 3.5 gm/dl (3.4-5.0); BUN Creatinine Ratio 22.5 (10-20); Calcium 9.2 mg/dl (8.5-10.1); Creatinine Clr Calc Pharmacy 48.9 ml/min; Est GFR (African American) 35.8 ml/min; Est GFR (Non-African American) 30.9 ml/min; Magnesium 2.1 mg/dl (1.7-2.4); Phosphorus 4.5 mg/dl (2.5-4.9); Potassium 4.4 mmol/L (3.5-5.1)
[2022-01-13] MEDS: METOPROLOL SUCC 50MG EXT REL TAB PO SCH ×2 (08:53→20:20)
[2022-01-13] MEDS: CHLOROTHIAZIDE SODIUM 500 MG in DEXTROSE 5% 50 ML IV SCH ×2 (08:54→22:06)
[2022-01-13] MEDS: POTASSIUM CHLORIDE CRTAB 20 MEQ TABCR PO SCH ×2 (08:54→20:20)
[2022-01-13] MEDS: MAGNESIUM OXIDE 400 MG TAB PO SCH (08:54)
[2022-01-13] MEDS: ENOXAPARIN INJ 40 MG/0.4 ML SYR SQ SCH ×2 (10:30→21:51)
--- NOTE | 2022-01-13 13:10 | Hospitalist Progress Note ---
Date of Service January 13, 2022 Assessment & Plan (1) Anasarca: Plan: 66 yo M Hx atrial flutter, HTN, hypothyroidism, CML, chronic lymphedema admitted for anasarca impeding patient's ability to walk and perform ADLs. Anasarca: - Presents with several months of worsening edema, with significant pitting edema to the level of the top of abdomen. -- Reports worsening edema since July 2021 and reports weight of 250 lbs but reports progressive weight gain - Last Echo 10/2021 without evidence of LV dysfunction but grade II pseudonormlization pattern diastolic dysfunction - Does admit to some dietary indiscretion with regard to salt intake. - Also has a history of lymph node removal in the abdomen/pelvis causing some chronic lymphedema (36 lymph nodes removed) - Bumex gtt at 1 mg/hr with goal of 2 L/day per nephrology - BMP in AM -- Added Chlorthiazide which has increased UO -- May ultimate need ultrafiltration; may have to accept some level of azotemia - Strict intake and output with Vela. - Low sodium diet with 1500mL fluid restriction CKD, Hypokalemia: - History of, with baseline creatinine 1.3-1.5. On admission with creatinine 1.5 but now up to 2.18 -- Suspect in setting of microvascular disease and poor renal perfusion related to R heart failure - K 3.8 on admission. Use home dosing of K as not diuresing significantly right now and can adjust as needed - Repeat BMP in AM - Did discuss the possibility that patient may require dialysis/ultrafiltration - Nephrology consulted and appreciate recommendations -- Albumin 3.7 so inconsistent with nephrotic syndrome -- CT with cirrhosis of liver related to [place] or nutmeg liver due to heart failure -- Possibly diuretic failure due to dietary indiscretion and poor intestinal absorption due to bowel wall edema Atrial flutter: - History of, on rate control therapy. Previously underwent ablation and is currently in sinus rhythm; no issues on telemetry - Continue metoprolol succinate 50mg PO BID. - Not on DOAC due to history of significant GI bleed requiring hospitalization and over 5 units of blood for stabilization. Chronic myelocytic leukemia, appendiceal cancer: - Diagnosed with CML in 2010; not currently on medical therapy but with intention to start Gleevec in the near future. -- Of note - CT does show numerous mesenteric lymph nodes (likely reactive); shotty retroperitoneal lymph nodes as well - Diagnosed with appendiceal cancer in 2012, s/p right hemicolectomy and significant pelvic lymph node removal which were negative for mets. - CBC without any belén abnormalities except for chronic anemia; Hgb stable. Hypothyroidism: - Continue levothyroxine. COVID-19: - Incidentally noted to be COVID-19 positive on admission testing. - Asymptomatic, therefore no medical intervention at this time. Code Status: FULL CODE FEN: Heart healthy, low sodium, fluid restriction to 1500cc DVT ppx: Lovenox SQ BID Dispo: Await adequate diuresis suspect few days inpatient (2) CKD (chronic kidney disease): (3) Hypertension: (4) Lymphedema: (5) CML (chronic myelocytic leukemia): (6) Atrial flutter: (7) Hypothyroidism: Admission and Anticipated Discharge Date Admission Date: January 10, 2022 Subjective No acute events overnight. Patient is currently at a -3 L fluid balance. Urine output is starting to burr picker with the addition of chlorothiazide. However renal function is slowly increasing and currently at 2.18. He continues to be asymptomatic from a Covid perspective. Denies shortness of breath and remains on room air. Reports he can feel the difference in his abdomen in regards to swelling. His legs remain significantly swollen and suspect this will be chronic regardless of diuresis. Review of Systems Review of Systems: All systems reviewed & are unremarkable except as noted in Subjective Physical Exam Physical Exam: PHYSICAL EXAM General Appearance: WDWN in NAD who is A&O x 3 HEENT: Head is normocephalic/atraumatic; Hearing grossly intact Neck: Supple; Trachea midline; Neg JVD Heart: RRR with murmur Lungs: CTA in all lung andres bilaterally; Respirations unlabored; Neg accessory muscle use Abdomen: Soft, non-tender; Positive BS x 4 quadrants Extremities: Neg cyanosis; Large edematous and scaly legs with thickened skin bilaterally with 4+ pitting edema; seems abdomen is no longer pitting until in the pelvic region Neurological: Speech clear; Gross motor/sensory function intact; Neg focal neurologic deficits Psychiatric: Appropriate mood/affect Skin: Normal Color; Warm/Dry Results & Data Results & Data ([place]) Vital Signs (Past 12 Hours) Vital Signs Temp Pulse Pulse Resp BP Pulse Ox 01/13/22 11:04 36.5 C 70 20 118/60 90 01/13/22 08:00 79 01/13/22 07:08 36.6 C 76 21 123/62 90 01/13/22 05:41 36.8 C 75 20 123/69 91 01/13/22 01:45 78 PG Care Time/CCT Total # of Minutes Spent Total Time Spent with Patient: Total time spent is greater than 50% in coordination of care (as documented) at patient's floor/unit and/or counseling patient: Coding Level of Care Code 88715 Subseq Hosp Care Lvl 3 Diagnoses Anasarca R60.1 CKD (chronic kidney disease) N18.9 Hypertension I10 Lymphedema I89.0 CML (chronic myelocytic leukemia) C92.10 Atrial flutter I48.92 Hypothyroidism E03.9
[2022-01-14] MEDS: BUMETANIDE 10 MG in DEXTROSE 5% 10 ML IV SCH ×3 (00:46→21:10)
[2022-01-14 03:34] LABS: Appearance Urine Clear (Clear); Bacteria Urine Automated 1+ (Negative); Bilirubin Urine Negative (Negative); Blood Urine 3+ (Negative); Color Urine Orange; Glucose Urine UA Negative (Negative); Ketones Urine Negative (Negative); Leukocyte Esterase Urine 3+ (Negative); Nitrite Urine Positive (Negative); Protein Urine Negative (Negative); RBC Urine Automated >30 /hpf (0-4); Specific Gravity Urine 1.007 (1.000-1.030); Urobilinogen Urine Negative (Negative); WBC Urine Automated >30 /hpf (0-5); pH Urine 6.5 (4.5-7.5)
[2022-01-14] MEDS: LEVOTHYROXINE SODIUM 100 MCG TABLET PO SCH (05:31)
[2022-01-14 06:58] LABS: Albumin Level 3.3 gm/dl (3.4-5.0); BUN Creatinine Ratio 26.6 (10-20); Calcium 9.1 mg/dl (8.5-10.1); Creatinine Clr Calc Pharmacy 56.2 ml/min; Est GFR (African American) 42.8 ml/min; Est GFR (Non-African American) 36.9 ml/min; Magnesium 1.9 mg/dl (1.7-2.4); Phosphorus 4.2 mg/dl (2.5-4.9); Potassium 3.5 mmol/L (3.5-5.1)
--- NOTE | 2022-01-14 07:44 | Hospitalist Progress Note ---
Date of Service January 14, 2022 Assessment & Plan (1) Anasarca: Plan: 66 yo M Hx atrial flutter, HTN, hypothyroidism, CML, chronic lymphedema admitted for anasarca impeding patient's ability to walk and perform ADLs. Anasarca * Presents with several months of worsening edema, with significant pitting edema to the level of the top of abdomen. * -- Reports worsening edema since July 2021 and reports weight of 250 lbs but reports progressive weight gain (60lb since ) * Last Echo 10/2021 without evidence of LV dysfunction but grade II pseudonormlization pattern diastolic dysfunction * Does admit to some dietary indiscretion with regard to salt intake -- EDUCATED TO LIMIT/AVOID IN DIET AT D/C * Also has a history of lymph node removal in the abdomen/pelvis causing some chronic lymphedema (36 lymph nodes removed) from when he had R hemicolectomy/removal of appendiceal cancer and has some level of chronic lymphedema * --> Follows with wound care outpatient and rec'd continued follow up. Has lymphedema pumps at home per their most recent note. * --> Per their note, patient to have had arterial studies --> done 12/20/21 --> no evidence for DVTs bilaterally, above knee * --> Rec for consider additional diuresis for elevated CVP and LT GSV/RT calf varieces ablation could be considered * Also with hx CML and follows with Dr Lima and to be starting Gleevec soon -- can reach out for discussion in AM Nephrology on consulted -- may have to accept some level of azotemia * On bumex gtt at 1mg/hr goal 2L/day * Added Diuril and UO increased * Some blood noted/darkened of urine --> yellow on exam and continued Lovenox for DVT prophylaxis, especially in lite of +COVID 19 testing Continue low sodium diet, fluid restriction 1500ml/daily Plans to change to IV bumex BID tomorrow with metolazone. Aim net negative 1- 2L/24 hours. * TSH checked, elevated to 6.38 but could be elevated in setting of stress --> of note, was also elevated to 4.56 on 12/20/21 as checked by PCP ==> consider increasing synthroid to 112mcg daily -- will ask about when he takes this medication as well COVID-19: * Incidentally noted to be COVID-19 positive on admission testing, no cough/sob but over course of couple of days, low SpO2 to 90, with goal in +COVID patients >94% * CRP/Procalcitonin checked --> 6.49 and 2.27 respectively * Decadron 6mg daily started 01/14 -- continue * Supplemental O2 to maintain sats >94%, titrate as able * Will place on pepcid BID for GI prophylaxis but will need to monitor given prior prior significant GI bleeding req hospitalization and >5 u PRBC and possible gastritis on imaging however denied any GI symptoms except fullness * Lovenox BID for DVT prophylaxis Leukocytosis --> WBC elevated to 12--> 11 on AM labs, possible reactive from anemia/COVID? CTAP without acute infectious etiology CXR for +COVID --> no consolidative pneumonia Repeat UA last evening for darkened/blood in urine --> 1+ bacteria, +nitrate, >WBC --> no symptoms reported but will monitor --> Treat if +fever/worsen WBC (although will be on steroids), or if develops urinary symptoms CKD, Hypokalemia: * History of, with baseline creatinine 1.3-1.5. On admission with creatinine 1.5 but now up to 2.18 * -- Suspect in setting of microvascular disease and poor renal perfusion related to R heart failure * K 3.8 on admission * Cr 1.88 (from 2.18) * Increased PO K supplementation to 40mg TID from BID given K 3.5 on AM labs and will continue to monitor * BMP in AM * - Nephrology consulted and appreciate recommendations * -- Albumin 3.7 so inconsistent with nephrotic syndrome * -- CT with cirrhosis of liver related to [place] or nutmeg liver due to heart failure * -- Possibly diuretic failure due to dietary indiscretion and poor intestinal absorption due to bowel wall edema Atrial flutter: * History of, on rate control therapy. Previously underwent ablation and is currently in sinus rhythm; no issues on telemetry * Continue metoprolol succinate 50mg PO BID. * Not on DOAC due to history of significant GI bleed requiring hospitalization and over 5 units of blood for stabilization. Chronic myelocytic leukemia, appendiceal cancer: * Diagnosed with CML in 2010; not currently on medical therapy but with int ention to start Gleevec in the near future. * -- Of note - CT does show numerous mesenteric lymph nodes (likely reactive); shotty retroperitoneal lymph nodes as well * - Diagnosed with appendiceal cancer in 2011, s/p right hemicolectomy and significant pelvic lymph node removal which were negative for mets. * - CBC without any belén abnormalities except for chronic anemia (MACROCYTIC IN PAST AND WILL ALSO CHECK B12/FOLATE IN AM) * Hgb 9.1 -- no evidence of active bleeding at this time, however would expect increase with diuresis as above * Checking B12/folate given macrocytosis as well, which could be contributing * Cbc IN AM Hypothyroidism: * Continue levothyroxine, takes 100mcg daily. Will also check when he takes this/taking properly if elevated TSH. * Checking d/t edema -- ELEVATED and continued current dose, but was also elevated last month during check by PCP * --> Consider increasing to 112mcg daily vs re-check outpatient Code Status: FULL CODE FEN: Heart healthy, low sodium, fluid restriction to 1500cc DVT ppx: Lovenox SQ BID Dispo: Await adequate diuresis suspect few days inpatient, bumex to be converted from gtt to IV + metolazone in AM (2) CKD (chronic kidney disease): (3) Hypertension: (4) Lymphedema: (5) CML (chronic myelocytic leukemia): (6) Atrial flutter: (7) Hypothyroidism: Admission and Anticipated Discharge Date Admission Date: January 10, 2022 Subjective patient evaluated this afternoon up in chair eating lunch feeling fine continues good diuresis, no further blood noted and instructed RN to continue lovenox Discussed decadron given for COVID and lower SpO2. Demonstrated understanding but does not believe in the diagnosis. No shortness of breath/cough/nausea/vomiting/loss of taste/smell/sore throat. Per nephrology plans for switching bumex to BID with metolazone. Patient notes he had taken this in the past. Discussed diet -- he plans on cutting out all added salt to start but we did discuss processed foods very high and should also be cognisant of such. B/L LE with robyn pads given seepage. He notes hx appendiceal ca s/p resection of small intestine 30inches and ascending/part of transverse colon. Also hx CML. Notes over 30 lymph nodes removed during that surgery and also contributing to chronic edema. Tried sometimes to keep legs elevated and noted someone attempting to get set up with lymphedema clinic at discharge. No fever, chills, chest pain, shortness of breath. Good appetite. Still with abdominal fullness/abd wall edema and B/L LE edema. No urinary symptoms such as dysuria or incomplete voiding. Will hold off on any abx at this time unless becomes symptomatic with such/spikes fever. Review of Systems Review of Systems: All systems reviewed & are unremarkable except as noted in HPI & below Physical Exam Physical Exam: General: WD/WN obese male sitting up in hospital bed eating lunch, NAD HEENT: head normocephalic, atraumatic, trachea midline without deviation (prior scar noted), slightly dry mm Resp: CTAB, diminished in bases, no w/c/r, on room air (nasal canula tubing in bed) CV: RRR, +systolic murmur, 3+ pitting b/l LE with serous weeping/thickened skin bilaterally, pulses diminished , calves non-tender to palpation GI: +BS, +distended, +edema, non tender to palpation, +scrotal edema : soto with yellow urine draining Neuro/Psych: AOx3, cooperative, answers questions appropriately, no focal deficit Results & Data Results & Data ([facility]) Vital Signs (Past 12 Hours) Vital Signs Temp Pulse Pulse Resp BP Pulse Ox 01/14/22 07:39 36.6 C 72 20 122/57 L 95 01/14/22 04:18 36.7 C 76 16 110/55 L 90 01/13/22 22:36 36.6 C 76 18 135/88 92 01/13/22 22:19 68 01/13/22 20:05 36.8 C 68 16 114/55 L 91 Laboratory Results 01/14/22 01/14/22 01/14/22 Range/Units 06:06 06:06 06:06 WBC (4.8-10.8) K/uL RBC (4.7-6.1) M/uL Hgb (14.0-18.0) g/dL Hct (42-52) % MCV (80-100) fL MCH (25-34) pg MCHC (32-36) g/dL RDW Std Deviation (36.4-46.3) fL RDW Coeff of Howie (11.5-14.5) % Plt Count (130-400) K/uL MPV (7.4-10.4) fL Immature Gran % (Auto) % Neut % (Auto) % Lymph % (Auto) % [place]ven % (Auto) % Eos % (Auto) % Baso % (Auto) % Neut # (Auto) (1.4-6.5) K/uL Lymph # (Auto) (1.2-3.4) K/uL Craven # (Auto) (0.11-0.59) K/uL Eos # (Auto) (0-0.5) K/uL Baso # (Auto) (0-0.2) K/uL Immature Gran # (Auto) (0.00-0.02) K/uL Sodium (136-145) mmol/L Potassium (3.5-5.1) mmol/L Chloride (98-107) mmol/L Carbon Dioxide (21-32) mmol/L Anion Gap (3-11) BUN (6-23) mg/dl Creatinine (0.6-1.4) mg/dl Est Cr Clr Drug Dosing ml/min Est GFR ( Amer) ml/min Est GFR (Non-Af Amer) ml/min BUN/Creatinine Ratio (10-20) Glucose (70-99(Fasting)) mg/dl Calcium (8.5-10.1) mg/dl Phosphorus (2.5-4.9) mg/dl Magnesium (1.7-2.4) mg/dl C-Reactive Protein 6.49 H (0-0.5) mg/dl Albumin (3.4-5.0) gm/dl Procalcitonin 2.27 H (0-0.5) ng/ml TSH 6.388 H (0.300-4.500) uIu/ml Free T4 1.21 (0.61-1.60) ng/dl Urine Color Urine Appearance (Clear) Urine pH (4.5-7.5) Ur Specific [place] (1.000-1.030) Urine Protein (Negative) Urine Glucose (UA) (Negative) Urine Ketones (Negative) Urine Blood (Negative) Urine Nitrite (Negative) Urine Bilirubin (Negative) Urine Urobilinogen (Negative) Ur Leukocyte Esterase (Negative) Urine WBC (Auto) (0-5) /hpf Urine RBC (Auto) (0-4) /hpf U Hyaline Cast (Auto) (0-5) /lpf U Epithel Cells (Auto) (0-5) /lpf Urine Bacteria (Auto) (Negative) 01/14/22 01/14/22 01/14/22 Range/Units 06:06 06:05 03:15 WBC 11.28 H (4.8-10.8) K/uL RBC 2.75 L (4.7-6.1) M/uL Hgb 9.1 L (14.0-18.0) g/dL Hct 27.7 L (42-52) % MCV 100.7 H (80-100) fL MCH 33.1 (25-34) pg MCHC 32.9 (32-36) g/dL RDW Std Deviation 61.9 H (36.4-46.3) fL RDW Coeff of Howie 16.9 H (11.5-14.5) % Plt Count 161 (130-400) K/uL MPV 10.5 H (7.4-10.4) fL Immature Gran % (Auto) 0.3 % Neut % (Auto) 72.9 % Lymph % (Auto) 13.2 % Craven % (Auto) 7.9 % Eos % (Auto) 5.1 % Baso % (Auto) 0.6 % Neut # (Auto) 8.22 H (1.4-6.5) K/uL Lymph # (Auto) 1.49 (1.2-3.4) K/uL Craven # (Auto) 0.89 H (0.11-0.59) K/uL Eos # (Auto) 0.58 H (0-0.5) K/uL Baso # (Auto) 0.07 (0-0.2) K/uL Immature Gran # (Auto) 0.03 H (0.00-0.02) K/uL Sodium 138 (136-145) mmol/L Potassium 3.5 D (3.5-5.1) mmol/L Chloride 95 L (98-107) mmol/L Carbon Dioxide 36 H (21-32) mmol/L Anion Gap 7 (3-11) BUN 50 H (6-23) mg/dl Creatinine 1.88 H D (0.6-1.4) mg/dl Est Cr Clr Drug Dosing 56.2 ml/min Est GFR ( Amer) 42.8 ml/min Est GFR (Non-Af Amer) 36.9 ml/min BUN/Creatinine Ratio 26.6 H (10-20) Glucose 100 H (70-99(Fasting)) mg/dl Calcium 9.1 (8.5-10.1) mg/dl Phosphorus 4.2 (2.5-4.9) mg/dl Magnesium 1.9 (1.7-2.4) mg/dl C-Reactive Protein (0-0.5) mg/dl Albumin 3.3 L (3.4-5.0) gm/dl Procalcitonin (0-0.5) ng/ml TSH (0.300-4.500) uIu/ml Free T4 (0.61-1.60) ng/dl Urine Color [place] Urine Appearance Clear (Clear) Urine pH 6.5 (4.5-7.5) Ur Specific [place] 1.007 (1.000-1.030) Urine Protein Negative (Negative) Urine Glucose (UA) Negative (Negative) Urine Ketones Negative (Negative) Urine Blood 3+ H (Negative) Urine Nitrite Positive A (Negative) Urine Bilirubin Negative (Negative) Urine Urobilinogen Negative (Negative) Ur Leukocyte Esterase 3+ H (Negative) Urine WBC (Auto) >30 H (0-5) /hpf Urine RBC (Auto) >30 H (0-4) /hpf U Hyaline Cast (Auto) 1-5 (0-5) /lpf U Epithel Cells (Auto) 5-10 H (0-5) /lpf Urine Bacteria (Auto) 1+ H (Negative) PG Care Time/CCT Total # of Minutes Spent Total Time Spent with Patient: Total time spent is greater than 50% in coordination of care (as documented) at patient's floor/unit and/or counseling patient: Coding Level of Care Code 21180 Subseq Hosp Care Lvl 3 Diagnoses Anasarca R60.1 CKD (chronic kidney disease) N18.9 Hypertension I10 Lymphedema I89.0 CML (chronic myelocytic leukemia) C92.10 Atrial flutter I48.92 Hypothyroidism E03.9
[2022-01-14 07:59] LABS: Basophils # (auto) 0.07 K/uL (0-0.2); Basophils % (auto) 0.6 %; Eosinophils # (auto) 0.58 K/uL (0-0.5); Eosinophils % (auto) 5.1 %; Hematocrit (blood only) 27.7 % (42-52); Hemoglobin 9.1 g/dL (14.0-18.0); Immature Granulocytes # (auto) 0.03 K/uL (0.00-0.02); Immature Granulocytes % (auto) 0.3 %; Lymphocytes # (auto) 1.49 K/uL (1.2-3.4); Lymphocytes % (auto) 13.2 %; Mean Corpuscular Hemoglobin 33.1 pg (25-34); Mean Corpuscular Hgb Conc 32.9 g/dL (32-36); Mean Corpuscular Volume 100.7 fL (80-100); Mean Platelet Volume 10.5 fL (7.4-10.4); Monocytes # (auto) 0.89 K/uL (0.11-0.59); Monocytes % (auto) 7.9 %; Neutrophils # (auto) 8.22 K/uL (1.4-6.5); Neutrophils % (auto) 72.9 %; Platelet Count 161 K/uL (130-400); RDW Coefficient of Variation 16.9 % (11.5-14.5); RDW Standard Deviation 61.9 fL (36.4-46.3); Red Blood Count 2.75 M/uL (4.7-6.1); White Blood Count 11.28 K/uL (4.8-10.8)
[2022-01-14 08:29] LABS: Thyroid Stimulating Hormone 6.388 uIu/ml (0.300-4.500)
[2022-01-14] MEDS: CHLOROTHIAZIDE SODIUM 500 MG in DEXTROSE 5% 50 ML IV SCH (08:51)
[2022-01-14] MEDS: dexAMETHasone 6 MG in SYRINGE 0 ML IV SCH (08:51)
[2022-01-14] MEDS: METOPROLOL SUCC 50MG EXT REL TAB PO SCH ×2 (08:52→21:10)
[2022-01-14] MEDS: MAGNESIUM OXIDE 400 MG TAB PO SCH (08:52)
[2022-01-14 09:22] LABS: T4 Free Thyroxine 1.21 ng/dl (0.61-1.60)
[2022-01-14] MEDS: POTASSIUM CHLORIDE CRTAB 20 MEQ TABCR PO SCH ×3 (09:52→18:36)
--- NOTE | 2022-01-14 09:54 | XRay Report ---
SINGLE VIEW CHEST CLINICAL HISTORY: Hypoxia FINDINGS: An AP, portable, upright chest radiograph is compared to study dated 01/03/2022 and correlat ed with chest CT dated 01/10/2022. The heart is enlarged. The pulmonary vasculature is noncongested. A telectasis is noted at the lung bases. No airspace consolidation or large pleural effusion is identif ied. No pneumothorax is seen. The skeletal structures are osteopenic. The bony thorax is grossly inta ct. IMPRESSION: Cardiomegaly with no acute cardiopulmonary abnormality. ACT 112: Negative or not required by law. Electronically signed by: Xiang Pedraza M.D. 01/14/2022 9:53 AM
--- NOTE | 2022-01-14 10:08 | Nephrology Progress Note ---
Date of Service January 14, 2022 Assessment & Plan (1) Anasarca: (2) Acute kidney injury: (3) Chronic kidney disease, stage 3a: (4) Lymphedema: (5) Hypertension: Plan: 66-year-old gentlemen with h/o stage 3A CKD b/l Cr 1.5, CML, appendiceal CA s/p R hemicolectomy, atrial fibrillation/flutter, hypothyroidism admitted with progressive weight gain, lymphedema, anasarca over last 4 months. Reports almost 60 lb weight gain since July 2021. Was on Bumex 2 mg po BID as an outpatient without much response and developed progressive abdominal distention and tense LE swelling that limits his ability to ambulate. He was started on Bumex gtt at 0.5mg/hr. Of note, he did test + for COVID upon admission but remains asymptomatic. Urine analysis with low-grade proteinuria but serum albumin normal. Creatinine slowly started to increase over last few months while he was on high dose of diuretics, prior to that had pretty decent renal function. CT abdomen pelvis showed mild cortical atrophy but no hydronephrosis. There is concern for cirrhotic changes in liver. 2D echo showed normal EF, no significant LVH. LFTs were normal. Concern for right-sided heart failure. Renal function and electrolytes staying relatively stable. Urine output improve significantly, had more than 4 L over last 24 hours has been net negative. -- Continue Bumex to 1 mg/hour and Diuril today and plan to change to IV Bumex and metolazone starting tomorrow. Monitor urine output, aim for net negative 1-2 L per 24 hours. Monitor renal function electrolytes closely, high risk of worsening of renal function. If eventually diuretic fails, may need to consider ultrafiltration. -- limit fluid intake to less than 1.5 L per day, encourage low-salt diet, elevate legs. will follow Admission and Anticipated Discharge Date Admission Date: January 10, 2022 Subjective Mustapha was seen and evaluated this morning, his was on speaker phone. He feels well, no shortness of breath or chest pain, noticed some improvement in abdominal edema. Urine output more than 4 L and > 2 L net negative last 24 hours. renal function staying relatively stable, electrolyte acceptable. Continues to have lymphedema, abdominal wall edema. Review of Systems Review of Systems: Detailed review of system was otherwise unremarkable except mentioned above. Physical Exam Constitutional: WD/WN, vitals as above + edematous; no acute distress Eyes: + anicteric sclerae Neck: normal visual inspection Respiratory: no respiratory distress Auscultation: + diminished lung sounds Cardiovascular: Rate/Rhythm: regular rate and regular rhythm Heart Sounds: normal S1 and normal S2 Extremities: + edema Gastrointestinal (Abdomen): Inspection/Auscultation: + abdominal edema Percussion/Palpation: + ascites; abdomen nontender Skin: no rashes Neurologic: no focal motor deficits and not confused Psychiatric: Orientation: alert and oriented x 3 Results & Data ([facility]) Vital Signs (Past 12 Hours) Vital Signs Temp Pulse Pulse Resp BP Pulse Ox 01/14/22 08:00 95 01/14/22 07:39 36.6 C 72 20 122/57 L 95 01/14/22 04:18 36.7 C 76 16 110/55 L 90 01/13/22 22:36 36.6 C 76 18 135/88 92 01/13/22 22:19 68 PG Care Time/CCT Total # of Minutes Spent Total Time Spent with Patient: Total time spent is greater than 50% in coordination of care (as documented) at patient's floor/unit and/or counseling patient: Coding Level of Care Code 16909 Subseq Hosp Care Lvl 3 Diagnoses Anasarca R60.1 Acute kidney injury N17.9 Chronic kidney disease, stage 3a N18.31 Lymphedema I89.0 Hypertension I10
[2022-01-14] MEDS: ENOXAPARIN INJ 40 MG/0.4 ML SYR SQ SCH ×2 (13:00→21:09)
[2022-01-14] MEDS ORDERED: CHLOROTHIAZIDE SODIUM 500 MG in DEXTROSE 5% 50 ML IV ONE (20:00)
[2022-01-14] MEDS: FAMOTIDINE 20 MG TAB PO SCH (21:09)
[2022-01-15 06:06] LABS: Basophils # (auto) 0.01 K/uL (0-0.2); Basophils % (auto) 0.1 %; Eosinophils # (auto) 0.01 K/uL (0-0.5); Eosinophils % (auto) 0.1 %; Hematocrit (blood only) 31.8 % (42-52); Immature Granulocytes # (auto) 0.06 K/uL (0.00-0.02); Immature Granulocytes % (auto) 0.7 %; Lymphocytes # (auto) 1.23 K/uL (1.2-3.4); Lymphocytes % (auto) 13.9 %; Mean Corpuscular Hemoglobin 32.2 pg (25-34); Mean Corpuscular Volume 102.3 fL (80-100); Mean Platelet Volume 9.9 fL (7.4-10.4); Monocytes # (auto) 0.41 K/uL (0.11-0.59); Monocytes % (auto) 4.6 %; Neutrophils # (auto) 7.11 K/uL (1.4-6.5); Neutrophils % (auto) 80.6 %; Platelet Count 159 K/uL (130-400); RDW Coefficient of Variation 16.7 % (11.5-14.5); Red Blood Count 3.11 M/uL (4.7-6.1); White Blood Count 8.83 K/uL (4.8-10.8)
[2022-01-15 06:13] LABS: Mean Corpuscular Hgb Conc 31.4 g/dL (32-36)
[2022-01-15 06:33] LABS: Albumin Level 3.6 gm/dl (3.4-5.0); BUN Creatinine Ratio 30.1 (10-20); C Reactive Protein 4.84 mg/dl (0-0.5); Calcium 9.7 mg/dl (8.5-10.1); Creatinine Clr Calc Pharmacy 67.7 ml/min; Est GFR (African American) 53.6 ml/min; Est GFR (Non-African American) 46.3 ml/min; Magnesium 1.9 mg/dl (1.7-2.4); Phosphorus 5.1 mg/dl (2.5-4.9); Potassium 3.8 mmol/L (3.5-5.1)
[2022-01-15] MEDS: LEVOTHYROXINE SODIUM 100 MCG TABLET PO SCH (06:46)
[2022-01-15 07:11] LABS: Folate (Folic Acid) 7.58 ng/ml (>5.38)
--- NOTE | 2022-01-15 07:17 | Hospitalist Progress Note ---
Date of Service January 15, 2022 Assessment & Plan (1) Anasarca: Plan: 66 yo M Hx atrial flutter, HTN, hypothyroidism, CML, chronic lymphedema admitted for anasarca impeding patient's ability to walk and perform ADLs. Anasarca * Presents with several months of worsening edema, with significant pitting edema to the level of the top of abdomen. * -- Reports worsening edema since July 2021 and reports weight of 250 lbs but reports progressive weight gain (60lb since ) * Last Echo 10/2021 without evidence of LV dysfunction but grade II pseudonormlization pattern diastolic dysfunction * Does admit to some dietary indiscretion with regard to salt intake -- EDUCATED TO LIMIT/AVOID IN DIET AT D/C * Also has a history of lymph node removal in the abdomen/pelvis causing some chronic lymphedema (36 lymph nodes removed) from when he had R hemicolectomy/removal of appendiceal cancer and has some level of chronic lymphedema * --> Follows with wound care outpatient and rec'd continued follow up. Has lymphedema pumps at home per their most recent note. * --> Per their note, patient to have had arterial studies --> done 12/20/21 --> no evidence for DVTs bilaterally, above knee * --> Rec for consider additional diuresis for elevated CVP and LT GSV/RT calf varieces ablation could be considered * Also with hx CML and follows with Dr Lima and to be starting Gleevec soon -- can reach out for discussion if needed Nephrology on consulted -- may have to accept some level of azotemia * On bumex gtt at 1mg/hr goal 2L/day * Added Diuril and UO increased * Some blood noted/darkened of urine --> yellow on exam and continued Lovenox for DVT prophylaxis, especially in lite of +COVID 19 testing Continue low sodium diet, fluid restriction 1500ml/daily Plans to change to IV bumex BID tomorrow with metolazone. Aim net negative 1- 2L/24 hours. 01/15 Net negative 5.2L over past 24 hours (cumulative -11.2L during stay) --> Transitioned to Bumex 4mg IV BID, metolazone 10mg daily --> Adequate UOP and continues net negative --> Exchanged soto 01/15 for hematuria, clot noted initially (had trauma when initially placed in ER and prior UA could have from trauma) --> Repeat UA after exchange without bacteria --> no AMS/fever and WBC wnl on repeat despite steroids --> Continue to monitor BMP in AM/electrolyte replacement as needed. Cr stable and improved to 1.5 likely as kidneys able to perfuse now that not so volume overloaded? COVID-19: * Incidentally noted to be COVID-19 positive on admission testing, no cough/sob but over course of couple of days, low SpO2 to 90, with goal in +COVID patients >94% * CRP/Procalcitonin checked * --> 6.49 and 2.27 respectively. * --> CRP 4.84 on repeat after starting steroids * Decadron 6mg daily started 01/14 -- continue (day 2) * Supplemental O2 to maintain sats >94%, titrate as able * Placed on pepcid BID for GI prophylaxis but will need to monitor given prior prior significant GI bleeding req hospitalization and >5 u PRBC and possible gastritis on imaging however denied any GI symptoms except fullness * Lovenox BID for DVT prophylaxis * CO2 40 on am labs --99% on 3L NC and titrate to maintain sats 94% --> ON ROOM AIR 01/15 Leukocytosis * --> WBC elevated to 12--> 11 on AM labs, possible reactive from anemia/COVID? CTAP without acute infectious etiology * CXR for +COVID --> no consolidative pneumonia * Repeat UA in evening 01/13 for darkened/blood in urine --> 1+ bacteria, +nitrate, >WBC --> no symptoms reported but will monitor * --> Treat if +fever/worsen WBC (although will be on steroids), or if develops urinary symptoms * WBC trending down even after starting decadron CKD, Hypokalemia: * History of, with baseline creatinine 1.3-1.5. On admission with creatinine 1.5 but now up to 2.18 * -- Suspect in setting of microvascular disease and poor renal perfusion related to R heart failure * K 3.8 on admission * Cr 1.56 (from 2.18), BUN 47 * Increased PO K supplementation to 40mg TID from BID given K 3.5 on AM labs and will continue to monitor * BMP in AM * - Nephrology consulted and appreciate recommendations * -- Albumin 3.7 so inconsistent with nephrotic syndrome * -- CT with cirrhosis of liver related to [place] or nutmeg liver due to heart failure * -- Possibly diuretic failure due to dietary indiscretion and poor intestinal absorption due to bowel wall edema Atrial flutter: * History of, on rate control therapy. Previously underwent ablation and is currently in sinus rhythm; no issues on telemetry * Continue metoprolol succinate 50mg PO BID. * Not on DOAC due to history of significant GI bleed requiring hospitalization and over 5 units of blood for stabilization. Chronic myelocytic leukemia, appendiceal cancer: * Diagnosed with CML in 2010; not currently on medical therapy but with intention to start Gleevec in the near future. * -- Of note - CT does show numerous mesenteric lymph nodes (likely reactive); shotty retroperitoneal lymph nodes as well * - Diagnosed with appendiceal cancer in 2011, s/p right hemicolectomy and significant pelvic lymph node removal which were negative for mets. * CBC without any belén abnormalities except for chronic anemia (MACROCYTIC IN PAST AND WILL ALSO CHECK B12/FOLATE IN AM) * Hgb 10.0 -- no evidence of active bleeding at this time, however would expect increase with diuresis as above (improved from 9.1) * Checking B12/folate given macrocytosis as well, which could be contributing --> B12 819, Folate 7.58 * Cbc IN AM but hgb improved --> of note, WBC elevation was initial indication he had CML in past * --> F/U [place] Dr Lima [place] to [place] Gleevec * Consider checking iron stores in am/replacement if needed Hypothyroidism: * Continue levothyroxine, takes 100mcg daily. Will also check when he takes this/taking properly if elevated TSH. * Checking d/t edema -- ELEVATED and continued current dose, but was also elevated last month during check by PCP * --> Consider increasing to 112mcg daily vs re-check outpatient in 4-6 weeks with PCP/adjustment if remains elevated TSH checked, elevated to 6.38 but could be elevated in setting of stress --> of note, was also elevated to 4.56 on 12/20/21 as checked by PCP ==> consider increasing synthroid to 112mcg daily -- will ask about when he takes this medication as well Code Status: FULL CODE FEN: Heart healthy, low sodium, Continue fluid restriction to 1500cc DVT ppx: Lovenox SQ BID Dispo: Await adequate diuresis suspect few days inpatient, bumex to be converted from gtt to IV + metolazone today (2) CKD (chronic kidney disease): (3) Hypertension: (4) Lymphedema: (5) CML (chronic myelocytic leukemia): (6) Atrial flutter: (7) Hypothyroidism: Admission and Anticipated Discharge Date Admission Date: January 10, 2022 Subjective patient evaluated this afternoon sitting up in chair, doing well Soto exchanged about an hour ago, still with faint pink tinge to urine in Soto bag. Did have some clot initially on exchange of Soto but draining slightly pink tinged urine. Will monitor urine drainage at this time. Can consider some abx for short term per nephrology for ongoing hematuria noted without cause. Repeat UA without bacteria. Per patient/RN, initial Soto on admission did require three attempts and could have been some trauma. No fevr, chills, chest pain, shortness of breath, abdominal pain. No BM since Friday and feels he needs to move bowels. Will add softener. Continue diuretics per Nephrology and given metolazone this morning. Cr stable. Physical Exam Physical Exam: General: WD/WN obese male sitting up in recliner eating lunch, NAD HEENT: head normocephalic, atraumatic, trachea midline without deviation (prior scar noted), slightly dry mm Resp: CTAB, diminished in bases, no w/c/r, on room air (nasal canula tubing in bed) CV: RRR, +systolic murmur, 3+ pitting b/l LE with serous weeping/thickened skin bilaterally (decreased slightly) pulses diminished , calves non-tender to palpation GI: +BS, +distended, +edema, non tender to palpation, +scrotal edema : soto with yellow urine draining (slight pink tinge but improved from earlier this morning per RN) Neuro/Psych: AOx3, cooperative, answers questions appropriately, no focal deficit Results & Data Results & Data ([facility]) Vital Signs (Past 12 Hours) Vital Signs Temp Pulse Resp BP Pulse Ox 01/15/22 04:49 36.5 C 71 18 119/66 99 01/14/22 23:27 36.5 C 65 18 107/50 L 100 01/14/22 19:32 36.7 C 73 18 116/72 97 Laboratory Results 01/15/22 01/15/22 01/15/22 Range/Units 12:00 05:54 05:48 WBC (4.8-10.8) K/uL RBC (4.7-6.1) M/uL Hgb (14.0-18.0) g/dL Hct (42-52) % MCV (80-100) fL MCH (25-34) pg MCHC (32-36) g/dL RDW Std Deviation (36.4-46.3) fL RDW Coeff of Howie (11.5-14.5) % Plt Count (130-400) K/uL MPV (7.4-10.4) fL Immature Gran % (Auto) % Neut % (Auto) % Lymph % (Auto) % [place] % (Auto) % Eos % (Auto) % Baso % (Auto) % Neut # (Auto) (1.4-6.5) K/uL Lymph # (Auto) (1.2-3.4) K/uL Pinal # (Auto) (0.11-0.59) K/uL Eos # (Auto) (0-0.5) K/uL Baso # (Auto) (0-0.2) K/uL Immature Gran # (Auto) (0.00-0.02) K/uL Peripher Smr Path Cons Cancelled Sodium (136-145) mmol/L Potassium (3.5-5.1) mmol/L Chloride (98-107) mmol/L Carbon Dioxide (21-32) mmol/L Anion Gap (3-11) BUN (6-23) mg/dl Creatinine (0.6-1.4) mg/dl Est Cr Clr Drug Dosing ml/min Est GFR ( Amer) ml/min Est GFR (Non-Af Amer) ml/min BUN/Creatinine Ratio (10-20) Glucose (70-99(Fasting)) mg/dl Calcium (8.5-10.1) mg/dl Phosphorus (2.5-4.9) mg/dl Magnesium (1.7-2.4) mg/dl Total Creatine Kinase (30-223) U/L C-Reactive Protein (0-0.5) mg/dl Albumin (3.4-5.0) gm/dl Vitamin B12 (211-911) pg/ml Folate (>5.38) ng/ml Procalcitonin 1.19 H (0-0.5) ng/ml Urine Color Curry Urine Appearance Clear (Clear) Urine pH 6.0 (4.5-7.5) Ur Specific [place] 1.008 (1.000-1.030) Urine Protein Negative (Negative) Urine Glucose (UA) Negative (Negative) Urine Ketones Negative (Negative) Urine Blood 3+ H (Negative) Urine Nitrite Negative (Negative) Urine Bilirubin Negative (Negative) Urine Urobilinogen Negative (Negative) Ur Leukocyte Esterase 2+ H (Negative) Urine WBC (Auto) 10-30 H (0-5) /hpf Urine RBC (Auto) >30 H (0-4) /hpf U Hyaline Cast (Auto) 1-5 (0-5) /lpf U Epithel Cells (Auto) 0-5 (0-5) /lpf Urine Bacteria (Auto) Negative (Negative) 01/15/22 01/15/22 01/15/22 Range/Units 05:48 05:48 05:48 WBC 8.83 (4.8-10.8) K/uL RBC 3.11 L (4.7-6.1) M/uL Hgb 10.0 L (14.0-18.0) g/dL Hct 31.8 L (42-52) % MCV 102.3 H (80-100) fL MCH 32.2 (25-34) pg MCHC 31.4 L (32-36) g/dL RDW Std Deviation 62.0 H (36.4-46.3) fL RDW Coeff of Howie 16.7 H (11.5-14.5) % Plt Count 159 (130-400) K/uL MPV 9.9 (7.4-10.4) fL Immature Gran % (Auto) 0.7 % Neut % (Auto) 80.6 % Lymph % (Auto) 13.9 % P[place] % (Auto) 4.6 % Eos % (Auto) 0.1 % Baso % (Auto) 0.1 % Neut # (Auto) 7.11 H (1.4-6.5) K/uL Lymph # (Auto) 1.23 (1.2-3.4) K/uL [place] # (Auto) 0.41 (0.11-0.59) K/uL Eos # (Auto) 0.01 (0-0.5) K/uL Baso # (Auto) 0.01 (0-0.2) K/uL Immature Gran # (Auto) 0.06 H (0.00-0.02) K/uL Peripher Smr Path Cons Sodium 138 (136-145) mmol/L Potassium 3.8 (3.5-5.1) mmol/L Chloride 92 L (98-107) mmol/L Carbon Dioxide 40 H (21-32) mmol/L Anion Gap 6 (3-11) BUN 47 H (6-23) mg/dl Creatinine 1.56 H D (0.6-1.4) mg/dl Est Cr Clr Drug Dosing 67.7 ml/min Est GFR ( Amer) 53.6 ml/min Est GFR (Non-Af Amer) 46.3 ml/min BUN/Creatinine Ratio 30.1 H (10-20) Glucose 141 H (70-99(Fasting)) mg/dl Calcium 9.7 (8.5-10.1) mg/dl Phosphorus 5.1 H (2.5-4.9) mg/dl Magnesium 1.9 (1.7-2.4) mg/dl Total Creatine Kinase 18 L (30-223) U/L C-Reactive Protein 4.84 H (0-0.5) mg/dl Albumin 3.6 (3.4-5.0) gm/dl Vitamin B12 819 (211-911) pg/ml Folate 7.58 (>5.38) ng/ml Procalcitonin (0-0.5) ng/ml Urine Color Urine Appearance (Clear) Urine pH (4.5-7.5) Ur Specific [place] (1.000-1.030) Urine Protein (Negative) Urine Glucose (UA) (Negative) Urine Ketones (Negative) Urine Blood (Negative) Urine Nitrite (Negative) Urine Bilirubin (Negative) Urine Urobilinogen (Negative) Ur Leukocyte Esterase (Negative) Urine WBC (Auto) (0-5) /hpf Urine RBC (Auto) (0-4) /hpf U Hyaline Cast (Auto) (0-5) /lpf U Epithel Cells (Auto) (0-5) /lpf Urine Bacteria (Auto) (Negative) PG Care Time/CCT Total # of Minutes Spent Total Time Spent with Patient: Total time spent is greater than 50% in coordination of care (as documented) at patient's floor/unit and/or counseling patient: Coding Level of Care Code 64387 Subseq Hosp Care Lvl 3 Diagnoses Anasarca R60.1 CKD (chronic kidney disease) N18.9 Hypertension I10 Lymphedema I89.0 CML (chronic myelocytic leukemia) C92.10 Atrial flutter I48.92 Hypothyroidism E03.9
[2022-01-15] MEDS: MAGNESIUM OXIDE 400 MG TAB PO SCH (08:04)
[2022-01-15] MEDS: FAMOTIDINE 20 MG TAB PO SCH ×2 (08:04→19:49)
[2022-01-15] MEDS: METOPROLOL SUCC 50MG EXT REL TAB PO SCH ×2 (08:04→19:49)
[2022-01-15] MEDS: POTASSIUM CHLORIDE CRTAB 20 MEQ TABCR PO SCH ×3 (08:04→17:46)
[2022-01-15] MEDS: metOLazone 5 MG TABLET PO SCH (08:42)
[2022-01-15] MEDS: BUMETANIDE 4 MG in SYRINGE 0 ML IV SCH ×2 (09:19→17:46)
[2022-01-15] MEDS: dexAMETHasone 6 MG in SYRINGE 0 ML IV SCH (09:19)
--- NOTE | 2022-01-15 10:05 | Nephrology Progress Note ---
Date of Service January 15, 2022 Assessment & Plan (1) Anasarca: (2) Acute kidney injury: (3) Chronic kidney disease, stage 3a: (4) Lymphedema: (5) Hypertension: Plan: 66-year-old gentlemen with h/o stage 3A CKD b/l Cr 1.5, CML, appendiceal CA s/p R hemicolectomy, atrial fibrillation/flutter, hypothyroidism admitted with progressive weight gain, lymphedema, anasarca over last 4 months. Reports almost 60 lb weight gain since July 2021. Was on Bumex 2 mg po BID as an outpatient without much response and developed progressive abdominal distention and tense LE swelling that limits his ability to ambulate. He was started on Bumex gtt at 0.5mg/hr. Of note, he did test + for COVID upon admission but remains asymptomatic. Urine analysis with low-grade proteinuria but serum albumin normal. Creatinine slowly started to increase over last few months while he was on high dose of diuretics, prior to that had pretty decent renal function. CT abdomen pelvis showed mild cortical atrophy but no hydronephrosis. There is concern for cirrhotic changes in liver. 2D echo showed normal EF, no significant LVH. LFTs were normal. Concern for right-sided heart failure. Renal function and electrolytes staying relatively stable. Urine output improve significantly, had more than 6 L over last 24 hours has been net negative. -- Change to Bumex 4 mg IV bid and metolazone 10 mg Monitor urine output, aim for net negative 1-2 L per 24 hours. Monitor renal function electrolytes closely, high risk of worsening of renal function. -- Unclear etiology for home going hematuria, recommend changing Vela catheter, suggest treating for UTI. -- limit fluid intake to less than 1.5 L per day, encourage low-salt diet, elevate legs. will follow Admission and Anticipated Discharge Date Admission Date: January 10, 2022 Subjective Mustapha was seen and evaluated this morning, feels well, no shortness of breath or chest pain, noticed some improvement in abdominal edema. Urine output more than 6 L and > 4 L net negative last 24 hours, total more than 11 L negative since admission. Renal function staying relatively stable, electrolyte acceptable. Continues to have lymphedema, abdominal wall edema. Ongoing hematuria, CT abdomen pelvis earlier during admission was negative for nephrolithiasis, renal or bladder mass but noted to have bladder changes with chronic outlet obstruction. Urinalysis with bacteriuria. no fever, chills. Review of Systems Review of Systems: Detailed review of system was otherwise unremarkable except mentioned above. Physical Exam Constitutional: WD/WN, vitals as above + edematous; no acute distress Eyes: + anicteric sclerae Neck: normal visual inspection Respiratory: no respiratory distress Auscultation: + diminished lung sounds Cardiovascular: Rate/Rhythm: regular rate and regular rhythm Heart Sounds: normal S1 and normal S2 Extremities: + edema Gastrointestinal (Abdomen): Inspection/Auscultation: + abdominal edema Percussion/Palpation: + ascites; abdomen nontender Skin: no rashes Neurologic: no focal motor deficits and not confused Psychiatric: Orientation: alert and oriented x 3 Results & Data ([facility]) Vital Signs (Past 12 Hours) Vital Signs Temp Pulse Pulse Resp BP Pulse Ox 01/15/22 08:25 68 01/15/22 07:33 36.4 C L 66 16 120/65 93 01/15/22 04:49 36.5 C 71 18 119/66 99 01/14/22 23:27 36.5 C 65 18 107/50 L 100 PG Care Time/CCT Total # of Minutes Spent Total Time Spent with Patient: Total time spent is greater than 50% in coordination of care (as documented) at patient's floor/unit and/or counseling patient: Coding Level of Care Code 19678 Subseq Hosp Care Lvl 3 Diagnoses Anasarca R60.1 Acute kidney injury N17.9 Chronic kidney disease, stage 3a N18.31 Lymphedema I89.0 Hypertension I10
[2022-01-15] MEDS: ENOXAPARIN INJ 40 MG/0.4 ML SYR SQ SCH ×2 (11:56→22:52)
[2022-01-15 12:43] LABS: Appearance Urine Clear (Clear); Bacteria Urine Automated Negative (Negative); Bilirubin Urine Negative (Negative); Blood Urine 3+ (Negative); Color Urine Orange; Epithelial Cell Urine Auto 0-5 /lpf (0-5); Glucose Urine UA Negative (Negative); Ketones Urine Negative (Negative); Leukocyte Esterase Urine 2+ (Negative); Nitrite Urine Negative (Negative); Protein Urine Negative (Negative); RBC Urine Automated >30 /hpf (0-4); Specific Gravity Urine 1.008 (1.000-1.030); Urobilinogen Urine Negative (Negative)
[2022-01-15] MEDS: POLYETHYLENE (MIRALAX) 17 GM PACK PO SCH (14:22)
[2022-01-15] MEDS: DOCUSATE SODIUM/SENNA 50/8.6MG TAB PO SCH (14:22)
[2022-01-16] MEDS: LEVOTHYROXINE SODIUM 100 MCG TABLET PO SCH (05:50)
[2022-01-16 06:12] LABS: Hematocrit (blood only) 31.7 % (42-52); Mean Corpuscular Hemoglobin 31.5 pg (25-34); Mean Corpuscular Hgb Conc 31.5 g/dL (32-36); Platelet Count 173 K/uL (130-400); RDW Coefficient of Variation 16.4 % (11.5-14.5); RDW Standard Deviation 60.3 fL (36.4-46.3); Red Blood Count 3.17 M/uL (4.7-6.1); White Blood Count 11.03 K/uL (4.8-10.8)
[2022-01-16 06:36] LABS: Albumin Level 3.6 gm/dl (3.4-5.0); BUN Creatinine Ratio 32.7 (10-20); Calcium 9.8 mg/dl (8.5-10.1); Creatinine Clr Calc Pharmacy 69.1 ml/min; Est GFR (African American) 57.6 ml/min; Est GFR (Non-African American) 49.7 ml/min; Magnesium 1.7 mg/dl (1.7-2.4); Phosphorus 3.3 mg/dl (2.5-4.9); Potassium 3.7 mmol/L (3.5-5.1)
--- NOTE | 2022-01-16 08:19 | Hospitalist Progress Note ---
Date of Service January 16, 2022 Assessment & Plan (1) Anasarca: Plan: 66 yo M Hx atrial flutter, HTN, hypothyroidism, CML, chronic lymphedema admitted for anasarca impeding patient's ability to walk and perform ADLs. Anasarca * Presents with several months of worsening edema, with significant pitting edema to the level of the top of abdomen. * -- Reports worsening edema since July 2021 and reports weight of 250 lbs but reports progressive weight gain (60lb since ) * Last Echo 10/2021 without evidence of LV dysfunction but grade II pseudonormlization pattern diastolic dysfunction * Does admit to some dietary indiscretion with regard to salt intake -- EDUCATED TO LIMIT/AVOID IN DIET AT D/C * Also has a history of lymph node removal in the abdomen/pelvis causing some chronic lymphedema (36 lymph nodes removed) from when he had R hemicolectomy/removal of appendiceal cancer and has some level of chronic lymphedema * Follows with wound care outpatient and rec'd continued follow up. Has lymphedema pumps at home per their most recent note. * --> Per their note, patient to have had arterial studies * --> done 12/20/21 --> no evidence for DVTs bilaterally, above knee * --> Rec for consider additional diuresis for elevated CVP and LT GSV/RT calf varieces ablation could be considered * Also with hx CML and follows with Dr Lima and to be starting Gleevec soon -- can reach out for discussion if needed Nephrology on consulted -- may have to accept some level of azotemia * Placed on bumex gtt on admission, little response, increased dose to 1mg/hr added diuril for low UOP which subsequently increased and patient with good response * See below regarding titration to bumex IV BID/metolazone Continue low sodium diet, fluid restriction 1500ml/daily Aim net negative 1-2L/24 hours. 01/15 Net negative 5.2L over past 24 hours (cumulative -11.2L during stay) * --> Transitioned to Bumex 4mg IV BID, metolazone 10mg daily. D/c Diuril * --> Adequate UOP and continues net negative * --> Exchanged soto 01/15 for hematuria, clot noted initially (had trauma when initially placed in ER and prior UA could have from trauma) * --> Repeat UA after exchange without bacteria --> no AMS/fever and WBC wnl on repeat despite steroids * --> Continue to monitor BMP in AM/electrolyte replacement as needed. Cr stable and improved to 1.5 likely as kidneys able to perfuse now that not so volume overloaded? 01/16 * -->WBC elevated but likely 2nd to steroids (afebrile), no urinary symptoms. soto w/ clear urine draining currently * Cr improved to 1.47 Continues bumex 4mg IV BID, metolazone 10mg daily * --> Discussed with Nephrology given elevated CO2 41 and will try diamox x 3 days and monitor response Considering decreasing diuretic dosing now that returning closer to baseline and mobility also much improved * Net negative 4.8L prior 24 hours (cumulative -16L) Continue fluid restriction/low sodium diet -- encourage dietary compliance with low salt at d/c DVT ppx: Lovenox SQ BID (2) Hypothyroidism: Plan: * Continue levothyroxine, takes 100mcg daily. * Checking d/t edema * -- ELEVATED and continued current dose, but was also elevated last month during check by PCP to 4.56 and no adjustments made at that time * --> Consider increasing to 112mcg daily vs re-check outpatient in 4-6 weeks with PCP/adjustment if remains elevated * He DOES endorse COMPLIANCE, taking 1.5-2 hours prior to other medications/food int he morning * --> TSH checked, elevated to 6.38 but could be elevated in setting of stress ==> consider increasing Synthroid to 112mcg daily (3) COVID-19: Plan: COVID-19: * Incidentally noted to be COVID-19 positive on admission testing, no cough/sob but over course of couple of days, low SpO2 to 90, with goal in +COVID patients >94% * CRP/Procalcitonin checked * --> 6.49 and 2.27 respectively --> CRP 4.84 on repeat after starting steroids * Decadron 6mg daily started 01/14 -- continue (day 3) * Supplemental O2 to maintain sats >94%, titrate as able * Placed on pepcid BID for GI prophylaxis but will need to monitor given prior prior significant GI bleeding req hospitalization and >5 u PRBC and possible gastritis on imaging however denied any GI symptoms except fullness * Lovenox BID for DVT prophylaxis CO2 41 on am labs, giving diamox as above Stable on room air and lungs CTAB (4) CKD (chronic kidney disease): Plan: Acute on Chronic Kidney Disease, Hypokalemia: * History of, with baseline creatinine 1.3-1.5. On admission with creatinine 1.5 but now up to 2.18 * -Suspect in setting of microvascular disease and poor renal perfusion related to R heart failure * K 3.8 on admission * Cr 1.47 (from 2.18), BUN 48 * Changed PO K supplementation to 40mg TID from BID given K 3.5 on AM and was starting metolazone ->will continue this dose given K 3.7 on AM labs and continuing metolazone Appreciate continued nephrology input --> ok w/ adding diamox to see if additional benefit for elevated CO2 w/ HF BMP in AM (5) Lymphedema: Plan: has lymphedema pumps at home added eucerin for cracked/hardened skin elevation rec f/u clinic at d/c --> updated and transferred to for more information on local availability as [facility] closed but should have some availability through [employer] (6) CML (chronic myelocytic leukemia): Plan: Chronic myelocytic leukemia, appendiceal cancer: * Diagnosed with CML in 2010; not currently on medical therapy but with intention to start Gleevec in the near future. * -- Of note - CT does show numerous mesenteric lymph nodes (likely reactive); shotty retroperitoneal lymph nodes as well * - Diagnosed with appendiceal cancer in 2011, s/p right hemicolectomy and significant pelvic lymph node removal which were negative for mets. * CBC without any belén abnormalities except for chronic anemia (MACROCYTIC IN PAST AND WILL ALSO CHECK B12/FOLATE IN AM) * Hgb 10.0 -- no evidence of active bleeding at this time, however would expect increase with diuresis as above (improved from 9.1) * Checking B12/folate given macrocytosis as well, which could be contributing * --> B12 819, Folate 7.58 * Cbc IN AM but hgb improved --> of note, WBC elevation was initial indication he had CML in past (stated had WBC 11-12k) * F/U with Dr Lima at [facility] to start Gleevec * Consider checking iron stores in am/replacement if needed --> iron borderline, low trans % sat , can give dose venofer if needed vs supplementaion but given Cherie/stable hgb will hold off for now Leukocytosis * --> WBC elevated to 12--> 11 on AM labs, possible reactive from anemia/COVID? CTAP without acute infectious etiology * CXR for +COVID --> no consolidative pneumonia * Repeat UA in evening 01/13 for darkened/blood in urine --> 1+ bacteria, +nitrate, >WBC --> no symptoms reported but will monitor. * --> Soto exchanged and repeat UA without bacteria --> asymptomatic and will not treat at this time (trauma during initial insertion) --> Treat if +fever/worsen WBC (although will be on steroids), or if develops urinary symptoms Outpatient f/u with oncology to start Gleevec (7) Hypertension: Plan: BP stable COntinue home metoprolol 50mg BID BUmex as above for #1 (8) Atrial flutter: Plan: * History of, on rate control therapy. Previously underwent ablation and is currently in sinus rhythm; no issues on telemetry * Continue metoprolol succinate 50mg PO BID. * Not on DOAC due to history of significant GI bleed requiring hospitalization and over 5 units of blood for stabilization Plan: Dispo: Await adequate diuresis suspect few days inpatient, bumex to be converted from gtt to IV + metolazone today Admission and Anticipated Discharge Date Admission Date: January 10, 2022 Subjective patient evaluated afternoon doing well, much better spirits states LE edema much improved, almost to baseline. Had been using Eucerin to b/l LE cracked skin to keep moist -- ordered and asked RN to apply. May benefit from amlactin but will touch base with wound RN later. Also with wound to buttocks, had been using Calmoseptine from wound care, also ordered. Good appetite, BM x 2 yesterday. Initial with blood streak, subsequent no issues. Feeling much improved --> discussed nephrology recs and will give some diamox to see if helps with CO2 levels. Patient does endorse he wakes up between 5-7am and takes his Synthroid with a sip of water. --> Discussed possibly increasing his Synthroid, bernard given swelling but could repeat labs with PCP next months as well. Also, discussed overnight sleep study. Unsure if he would use O2 at home. Also alerted . No fever, chills, chest pain, shortness of breath,abdominal pain, nausea or vomiting at this time. Questions/concerns addressed. Review of Systems Review of Systems: All systems reviewed & are unremarkable except as noted in HPI & below Physical Exam Physical Exam: General: WD/WN obese male sitting up in recliner eating lunch, NAD HEENT: head normocephalic, atraumatic, trachea midline without deviation (prior scar noted), slightly dry mm Resp: CTAB, diminished in bases, no w/c/r, on room air 96% CV: RRR, +systolic murmur, 3+ non-pitting b/l LE with less weeping, dried/thickened/crackled skin (prior reports of cellulitis to RLE), non-tender to palpation, pulses diminished, calves non-tender to palpation GI: +BS, +distended (less), +edema (less), non tender to palpation, +scrotal edema (less but still significant) : soto with yellow urine draining (slight darkened appearance per RN this morning but currently very clear/no clots since last emptied) Neuro/Psych: AOx3, cooperative, answers questions appropriately, no focal deficit Results & Data Results & Data ([facility]) Vital Signs (Past 12 Hours) Vital Signs Temp Pulse Pulse Resp BP Pulse Ox 01/16/22 08:03 65 01/16/22 07:25 36.7 C 65 19 128/56 L 95 01/16/22 03:58 36.6 C 67 18 129/61 91 01/15/22 23:37 36.8 C 66 18 127/64 97 01/15/22 22:18 63 Laboratory Results 01/16/22 01/16/22 01/15/22 Range/Units 05:35 05:35 12:00 WBC 11.03 H (4.8-10.8) K/uL RBC 3.17 L (4.7-6.1) M/uL Hgb 10.0 L (14.0-18.0) g/dL Hct 31.7 L (42-52) % MCV 100.0 (80-100) fL MCH 31.5 (25-34) pg MCHC 31.5 L (32-36) g/dL RDW Std Deviation 60.3 H (36.4-46.3) fL RDW Coeff of Howie 16.4 H (11.5-14.5) % Plt Count 173 (130-400) K/uL MPV 11.0 H (7.4-10.4) fL Peripher Smr Path Cons Sodium 139 (136-145) mmol/L Potassium 3.7 (3.5-5.1) mmol/L Chloride 91 L (98-107) mmol/L Carbon Dioxide 41 H* (21-32) mmol/L Anion Gap 7 (3-11) BUN 48 H (6-23) mg/dl Creatinine 1.47 H (0.6-1.4) mg/dl Est Cr Clr Drug Dosing 69.1 ml/min Est GFR ( Amer) 57.6 ml/min Est GFR (Non-Af Amer) 49.7 ml/min BUN/Creatinine Ratio 32.7 H (10-20) Glucose 161 H (70-99(Fasting)) mg/dl Calcium 9.8 (8.5-10.1) mg/dl Phosphorus 3.3 D (2.5-4.9) mg/dl Magnesium 1.7 (1.7-2.4) mg/dl Iron 41 (35-175) mcg/dl TIBC 257 (250-450) mcg/dl Unsaturated IBC 216 (155-355) mcg/dl Transferrin % Sat 16 L (20-50) % Albumin 3.6 (3.4-5.0) gm/dl Procalcitonin (0-0.5) ng/ml Urine Color [place] Urine Appearance Clear (Clear) Urine pH 6.0 (4.5-7.5) Ur Specific [place] 1.008 (1.000-1.030) Urine Protein Negative (Negative) Urine Glucose (UA) Negative (Negative) Urine Ketones Negative (Negative) Urine Blood 3+ H (Negative) Urine Nitrite Negative (Negative) Urine Bilirubin Negative (Negative) Urine Urobilinogen Negative (Negative) Ur Leukocyte Esterase 2+ H (Negative) Urine WBC (Auto) 10-30 H (0-5) /hpf Urine RBC (Auto) >30 H (0-4) /hpf U Hyaline Cast (Auto) 1-5 (0-5) /lpf U Epithel Cells (Auto) 0-5 (0-5) /lpf Urine Bacteria (Auto) Negative (Negative) 01/15/22 01/15/22 Range/Units 05:54 05:48 WBC (4.8-10.8) K/uL RBC (4.7-6.1) M/uL Hgb (14.0-18.0) g/dL Hct (42-52) % MCV (80-100) fL MCH (25-34) pg MCHC (32-36) g/dL RDW Std Deviation (36.4-46.3) fL RDW Coeff of Howie (11.5-14.5) % Plt Count (130-400) K/uL MPV (7.4-10.4) fL Peripher Smr Path Cons Sodium (136-145) mmol/L Potassium (3.5-5.1) mmol/L Chloride (98-107) mmol/L Carbon Dioxide (21-32) mmol/L Anion Gap (3-11) BUN (6-23) mg/dl Creatinine (0.6-1.4) mg/dl Est Cr Clr Drug Dosing ml/min Est GFR ( Amer) ml/min Est GFR (Non-Af Amer) ml/min BUN/Creatinine Ratio (10-20) Glucose (70-99(Fasting)) mg/dl Calcium (8.5-10.1) mg/dl Phosphorus (2.5-4.9) mg/dl Magnesium (1.7-2.4) mg/dl Iron (35-175) mcg/dl TIBC (250-450) mcg/dl Unsaturated IBC (155-355) mcg/dl Transferrin % Sat (20-50) % Albumin (3.4-5.0) gm/dl Procalcitonin 1.19 H (0-0.5) ng/ml Urine Color Urine Appearance (Clear) Urine pH (4.5-7.5) Ur Specific [place] (1.000-1.030) Urine Protein (Negative) Urine Glucose (UA) (Negative) Urine Ketones (Negative) Urine Blood (Negative) Urine Nitrite (Negative) Urine Bilirubin (Negative) Urine Urobilinogen (Negative) Ur Leukocyte Esterase (Negative) Urine WBC (Auto) (0-5) /hpf Urine RBC (Auto) (0-4) /hpf U Hyaline Cast (Auto) (0-5) /lpf U Epithel Cells (Auto) (0-5) /lpf Urine Bacteria (Auto) (Negative) PG Care Time/CCT Total # of Minutes Spent Total Time Spent with Patient: Total time spent is greater than 50% in coordination of care (as documented) at patient's floor/unit and/or counseling patient: Coding Level of Care Code 67931 Subseq Hosp Care Lvl 3 Diagnoses Anasarca R60.1 CKD (chronic kidney disease) N18.9 Hypertension I10 Lymphedema I89.0 CML (chronic myelocytic leukemia) C92.10 Atrial flutter I48.92 Hypothyroidism E03.9 COVID-19 U07.1
[2022-01-16] MEDS: POTASSIUM CHLORIDE CRTAB 20 MEQ TABCR PO SCH ×3 (08:48→17:36)
[2022-01-16] MEDS: METOPROLOL SUCC 50MG EXT REL TAB PO SCH ×2 (08:49→20:48)
[2022-01-16] MEDS: DOCUSATE SODIUM/SENNA 50/8.6MG TAB PO SCH (08:49)
[2022-01-16] MEDS: MAGNESIUM OXIDE 400 MG TAB PO SCH (08:49)
[2022-01-16] MEDS: FAMOTIDINE 20 MG TAB PO SCH ×2 (08:49→20:48)
[2022-01-16] MEDS: POLYETHYLENE (MIRALAX) 17 GM PACK PO SCH (08:49)
[2022-01-16] MEDS: metOLazone 5 MG TABLET PO SCH (08:50)
[2022-01-16] MEDS: dexAMETHasone 6 MG in SYRINGE 0 ML IV SCH (08:50)
[2022-01-16] MEDS: BUMETANIDE 4 MG in SYRINGE 0 ML IV SCH ×2 (08:50→17:37)
--- NOTE | 2022-01-16 10:10 | Nephrology Progress Note ---
Date of Service January 16, 2022 Assessment & Plan (1) Anasarca: (2) Chronic kidney disease, stage 3a: (3) Lymphedema: (4) Hypertension: Plan: 66-year-old gentlemen with h/o stage 3A CKD b/l Cr 1.5, CML, appendiceal CA s/p R hemicolectomy, atrial fibrillation/flutter, hypothyroidism admitted with progressive weight gain, lymphedema, anasarca over last 4 months. Reports almost 60 lb weight gain since July 2021. Was on Bumex 2 mg po BID as an outpatient without much response and developed progressive abdominal distention and tense LE swelling that limits his ability to ambulate. He was started on Bumex gtt at 0.5mg/hr. Of note, he did test + for COVID upon admission but remains asymptomatic. Urine analysis with low-grade proteinuria but serum albumin normal. Creatinine slowly started to increase over last few months while he was on high dose of diuretics, prior to that had pretty decent renal function. CT abdomen pelvis showed mild cortical atrophy but no hydronephrosis. There is concern for cirrhotic changes in liver. 2D echo show ed normal EF, no significant LVH. LFTs were normal. Concern for right-sided heart failure. Renal function and electrolytes staying relatively stable. Urine output improve significantly, had more than 6 L over last 24 hours has been net negative. -- Continue Bumex 4 mg IV bid and metolazone 10 mg Monitor urine output, aim for net negative 1-2 L per 24 hours. Monitor renal function electrolytes closely, high risk of worsening of renal function. will consider decreasing Bumex -- limit fluid intake to less than 1.5 L per day, encourage low-salt diet, elevate legs. will follow Admission and Anticipated Discharge Date Admission Date: January 10, 2022 Subjective Mustapha was seen and evaluated this morning, feels well, no shortness of breath or chest pain. Urine output more than 6 L and > 4 L net negative last 24 hours, total more than 116L negative since admission. Renal function staying relatively stable, electrolyte acceptable. Continues to have lymphedema, abdominal wall edema but there is continued Improvement. hematuria improving after changing Vela catheter yesterday. Review of Systems Review of Systems: Detailed review of system was otherwise unremarkable except mentioned above. Physical Exam Constitutional: WD/WN, vitals as above + edematous; no acute distress Eyes: + anicteric sclerae Neck: normal visual inspection Respiratory: no respiratory distress Auscultation: + diminished lung sounds Cardiovascular: Rate/Rhythm: regular rate and regular rhythm Heart Sounds: normal S1 and normal S2 Extremities: + edema Gastrointestinal (Abdomen): Inspection/Auscultation: + abdominal edema Percussion/Palpation: + ascites; abdomen nontender Skin: no rashes Neurologic: no focal motor deficits and not confused Psychiatric: Orientation: alert and oriented x 3 Results & Data ([facility]) Vital Signs (Past 12 Hours) Vital Signs Temp Pulse Pulse Resp BP Pulse Ox 01/16/22 08:03 65 01/16/22 07:25 36.7 C 65 19 128/56 L 95 01/16/22 03:58 36.6 C 67 18 129/61 91 01/15/22 23:37 36.8 C 66 18 127/64 97 01/15/22 22:18 63 PG Care Time/CCT Total # of Minutes Spent Total Time Spent with Patient: Total time spent is greater than 50% in coordination of care (as documented) at patient's floor/unit and/or counseling patient: Coding Level of Care Code 91727 Subseq Hosp Care Lvl 3 Diagnoses Anasarca R60.1 Chronic kidney disease, stage 3a N18.31 Lymphedema I89.0 Hypertension I10
[2022-01-16] MEDS: ENOXAPARIN INJ 40 MG/0.4 ML SYR SQ SCH ×2 (11:17→22:42)
[2022-01-16] MEDS ORDERED: MAGNESIUM SULFATE / D5W 1 GM/100 ML BAG IV ONE (12:00)
[2022-01-16] MEDS ORDERED: MENTHOL-ZINC OXIDE 360 APPLN/120 GM TUBE EXT SCH (13:30)
[2022-01-16] MEDS: EUCERIN CR 120 GM JAR EXT SCH (20:47)
[2022-01-16] MEDS: acetaZOLAMIDE 250 MG TAB PO SCH (20:48)
[2022-01-17] MEDS: LEVOTHYROXINE SODIUM 100 MCG TABLET PO SCH (06:17)
[2022-01-17 07:27] LABS: Hematocrit (blood only) 33.1 % (42-52); Hemoglobin 10.5 g/dL (14.0-18.0); Mean Corpuscular Hemoglobin 31.8 pg (25-34); Mean Corpuscular Hgb Conc 31.7 g/dL (32-36); Mean Corpuscular Volume 100.3 fL (80-100); Mean Platelet Volume 10.7 fL (7.4-10.4); Platelet Count 171 K/uL (130-400); RDW Coefficient of Variation 16.5 % (11.5-14.5); RDW Standard Deviation 60.8 fL (36.4-46.3)
--- NOTE | 2022-01-17 07:35 | Hospitalist Progress Note ---
Date of Service January 17, 2022 Assessment & Plan (1) Anasarca: Plan: 66 yo M Hx atrial flutter, HTN, hypothyroidism, CML, chronic lymphedema admitted for anasarca impeding patient's ability to walk and perform ADLs. Anasarca * Presents with several months of worsening edema, with significant pitting edema to the level of the top of abdomen. * -- Reports worsening edema since July 2021 and reports weight of 250 lbs but reports progressive weight gain (60lb since ) * Last Echo 10/2021 without evidence of LV dysfunction but grade II pseudonormlization pattern diastolic dysfunction * Does admit to some dietary indiscretion with regard to salt intake -- EDUCATED TO LIMIT/AVOID IN DIET AT D/C * Also has a history of lymph node removal in the abdomen/pelvis causing some chronic lymphedema (36 lymph nodes removed) from when he had R hemicolectomy/removal of appendiceal cancer and has some level of chronic lymphedema * Follows with wound care outpatient and rec'd continued follow up. Has lymphedema pumps at home per their most recent note. * --> Per their note, patient to have had arterial studies * --> done 12/20/21 --> no evidence for DVTs bilaterally, above knee * --> Rec for consider additional diuresis for elevated CVP and LT GSV/RT calf varieces ablation could be considered * Also with hx CML and follows with Dr Lima and to be starting Gleevec soon -- can reach out for discussion if needed Nephrology on consulted -- may have to accept some level of azotemia * Placed on bumex gtt on admission, little response, increased dose to 1mg/hr added diuril for low UOP which subsequently increased and patient with good response * See below regarding titration to bumex IV BID/metolazone Continue low sodium diet, fluid restriction 1500ml/daily Aim net negative 1-2L/24 hours. 01/15 Net negative 5.2L over past 24 hours (cumulative -11.2L during stay) * --> Transitioned to Bumex 4mg IV BID, metolazone 10mg daily. D/c Diuril * --> Adequate UOP and continues net negative * --> Exchanged soto 01/15 for hematuria, clot noted initially (had trauma when initially placed in ER and prior UA could have from trauma) * --> Repeat UA after exchange without bacteria --> no AMS/fever and WBC wnl on repeat despite steroids * --> Continue to monitor BMP in AM/electrolyte replacement as needed. Cr stable and improved to 1.5 likely as kidneys able to perfuse now that not so volume overloaded? 01/16 * -->WBC elevated but likely 2nd to steroids (afebrile), no urinary symptoms. soto w/ clear urine draining currently * Cr improved to 1.47 Continues bumex 4mg IV BID, metolazone 10mg daily * --> Discussed with Nephrology given elevated CO2 41 and will try diamox x 3 days and monitor response Considering decreasing diuretic dosing now that returning closer to baseline and mobility also much improved * Net negative 4.8L prior 24 hours (cumulative -16L) Continue fluid restriction/low sodium diet -- encourage dietary compliance with low salt at d/c 01/17 Less LE edema (patient reports about at baseline), less abd edema as well as scrotal edema (although still significant) Per Nephrology, would like to continue Bumex 4mg IV BID and metolazone 10mg through today --> Has had net negative 6.5L in past 24 hours, cumulative --22.6L Cr stable at 1.4 and better than reported baseline 1.5 Continue diamox BID for elevated CO2, remains elevated at 43 Also checked Vit D level, low at 22 and started oral supplementation Plans to decrease bumex tomorrow possibly to 3mg BID and metolazone decreased to 5mg but will monitor response Monitor AM labs DVT ppx: Lovenox SQ BID (2) Hypothyroidism: Plan: * Continue levothyroxine, takes 100mcg daily. * Checking d/t edema * -- ELEVATED and continued current dose, but was also elevated last month during check by PCP to 4.56 and no adjustments made at that time * He DOES endorse COMPLIANCE, taking 1.5-2 hours prior to other medications/food int he morning * --> TSH checked, elevated to 6.38 but could be elevated in setting of stress but given symptoms of constipation/fatigue/edema will increase to 112mcg daily and will need f/u with PCP in 4-6 weeks with PCP/adjustment if needed (3) COVID-19: Plan: COVID-19: * Incidentally noted to be COVID-19 positive on admission testing, no cough/sob but over course of couple of days, low SpO2 to 90, with goal in +COVID patients >94% * CRP/Procalcitonin checked * --> 6.49 and 2.27 respectively --> CRP 4.84 on repeat after starting steroids * Decadron 6mg daily started 01/14 -- continue (day 4) * Supplemental O2 to maintain sats >94%, titrate as able. * Placed on pepcid BID for GI prophylaxis but will need to monitor given prior prior significant GI bleeding req hospitalization and >5 u PRBC and possible gastritis on imaging however denied any GI symptoms except fullness * Lovenox BID for DVT prophylaxis CO2 elevated, diamox for diuretic as above, monitor response Currently 95% on RA (4) CKD (chronic kidney disease): Plan: Acute on Chronic Kidney Disease, Hypokalemia: * History of, with baseline creatinine 1.3-1.5. On admission with creatinine 1.5 but now up to 2.18 * -Suspect in setting of microvascular disease and poor renal perfusion related to R heart failure * K 3.8 on admission * Cr 1.4 (from 2.18), BUN 51 * Changed PO K supplementation to 40mg TID from BID given K 3.5 on AM and was starting metolazone ->will continue this dose given K 3.5 on AM labs and continuing metolazone Appreciate continued nephrology input --> ok w/ adding diamox to see if additional benefit for elevated CO2 w/ HF, day #2 BMP in AM (5) Lymphedema: Plan: has lymphedema pumps at home added eucerin for cracked/hardened skin elevation rec f/u clinic at d/c --> updated and transferred to for more information on local availability as [facility] but should have some availability through [facility] (6) CML (chronic myelocytic leukemia): Plan: Chronic myelocytic leukemia, appendiceal cancer: * Diagnosed with CML in 2010; not currently on medical therapy but with intention to start Gleevec in the near future. * -- Of note - CT does show numerous mesenteric lymph nodes (likely reactive); shotty retroperitoneal lymph nodes as well * - Diagnosed with appendiceal cancer in 2011, s/p right hemicolectomy and significant pelvic lymph node removal which were negative for mets. * CBC without any belén abnormalities except for chronic anemia (MACROCYTIC IN PAST AND WILL ALSO CHECK B12/FOLATE IN AM) * Hgb 10.0 -- no evidence of active bleeding at this time, however would expect increase with diuresis as above (improved from 9.1) * Checking B12/folate given macrocytosis as well, which could be contributing * --> B12 819, Folate 7.58 * Cbc IN AM but hgb improved --> of note, WBC elevation was initial indication he had CML in past (stated had WBC 11-12k) * F/U with Dr Lima at [facility] to start Gleevec * Consider checking iron stores in am/replacement if needed --> iron borderline, low trans % sat , can give dose venofer if needed vs supplementaion but given Cherie/stable hgb will hold off for now Leukocytosis * 2nd decadron for #3, afebrile * CXR for +COVID --> no consolidative pneumonia * Repeat UA in evening 01/13 for darkened/blood in urine --> 1+ bacteria, +nit rate, >WBC --> no symptoms reported but will monitor. * --> Soto exchanged and repeat UA without bacteria --> asymptomatic and will not treat at this time (trauma during initial insertion) --> Treat if +fever/symptomatic/AMS or develops urinary symptoms Outpatient f/u with oncology to start Gleevec for CML (7) Hypertension: Plan: BP stable COntinue home metoprolol 50mg BID BUmex as above for #1 (8) Atrial flutter: Plan: * History of, on rate control therapy. Previously underwent ablation and is currently in sinus rhythm; no issues on telemetry * Continue metoprolol succinate 50mg PO BID. * Not on DOAC due to history of significant GI bleed requiring hospitalization and over 5 units of blood for stabilization Has been sinus 50-60bpm on telemetry Plan: Continued inpatient stay, diuresis as above Admission and Anticipated Discharge Date Admission Date: January 10, 2022 Supervising Physician Co-Signing Physician Notes Attending Attestation - Chart reviewed in detail, care plan d/w SHERRON Butler. I agree w/ the raza components of her documentation. Complicated 66yo male with anasarca. Multifactorial (lymphedema, CKD, acute/chronic diastolic CHF, etc). Remains on IV diuretics with excellent response. Appreciate nephrology assistance. COVID-19 + status - continue airborne isolation; remains on decadron due to hypoxia. Juan Leyva MD Subjective patient evaluated this morning doing well continues to diurese moving bowels and ambulating to the bathroom edema much improved, less scrotal edema legs back in DARREN wraps today, elevated in recliner he states he is willing to stay as long as needed to make sure he doesn't bounce back as a readmission and wants to stay out of the hospital. No fever, chills, chest pain, shortness of breath, abdominal pain, nausea, vomiting, lightheadedness or dizziness at this time. Questions/concerns addressed. Review of Systems Review of Systems: All systems reviewed & are unremarkable except as noted in HPI & below Physical Exam Physical Exam: General: WD/WN obese male sitting up in recliner eating lunch, NAD HEENT: head normocephalic, atraumatic, trachea midline without deviation (prior scar noted) Resp: CTAB, diminished in bases, no w/c/r, on room air 95% CV: RRR, +systolic murmur, 3+ non-pitting b/l LE with less weeping, dried/thickened/crackled skin (prior reports of cellulitis to RLE) now with DARREN wraps B/L LE, non-tender to palpation, pulses diminished, calves non-tender to palpation GI: +BS, +distended (less), +edema (less), non tender to palpation, +scrotal edema (less but still significant but no further weeping) : soto with clear yellow urine draining Neuro/Psych: AOx3, cooperative, answers questions appropriately, no focal deficit Results & Data Results & Data ([facility]) Vital Signs (Past 12 Hours) Vital Signs Temp Pulse Pulse Resp BP Pulse Ox 01/17/22 04:45 36.5 C 56 L 16 114/59 L 92 01/16/22 23:09 57 L 01/16/22 22:58 36.4 C L 56 L 16 124/63 96 Laboratory Results 01/17/22 01/17/22 01/17/22 Range/Units 06:41 06:41 06:41 WBC 15.30 H (4.8-10.8) K/uL RBC 3.30 L (4.7-6.1) M/uL Hgb 10.5 L (14.0-18.0) g/dL Hct 33.1 L (42-52) % MCV 100.3 H (80-100) fL MCH 31.8 (25-34) pg MCHC 31.7 L (32-36) g/dL RDW Std Deviation 60.8 H (36.4-46.3) fL RDW Coeff of Howie 16.5 H (11.5-14.5) % Plt Count 171 (130-400) K/uL MPV 10.7 H (7.4-10.4) fL Sodium 139 (136-145) mmol/L Potassium 3.5 (3.5-5.1) mmol/L Chloride 90 L (98-107) mmol/L Carbon Dioxide 43 H* (21-32) mmol/L Anion Gap 6 (3-11) BUN 51 H (6-23) mg/dl Creatinine 1.40 (0.6-1.4) mg/dl Est Cr Clr Drug Dosing 72.5 ml/min Est GFR ( Amer) 61.1 ml/min Est GFR (Non-Af Amer) 52.7 ml/min BUN/Creatinine Ratio 36.4 H (10-20) Glucose 139 H (70-99(Fasting)) mg/dl Calcium 10.1 (8.5-10.1) mg/dl Phosphorus 3.7 (2.5-4.9) mg/dl Magnesium 1.9 (1.7-2.4) mg/dl Albumin 3.6 (3.4-5.0) gm/dl 25-OH Vitamin D Total (30-100) ng/ml 01/17/22 Range/Units 05:35 WBC (4.8-10.8) K/uL RBC (4.7-6.1) M/uL Hgb (14.0-18.0) g/dL Hct (42-52) % MCV (80-100) fL MCH (25-34) pg MCHC (32-36) g/dL RDW Std Deviation (36.4-46.3) fL RDW Coeff of Howie (11.5-14.5) % Plt Count (130-400) K/uL MPV (7.4-10.4) fL Sodium (136-145) mmol/L Potassium (3.5-5.1) mmol/L Chloride (98-107) mmol/L Carbon Dioxide (21-32) mmol/L Anion Gap (3-11) BUN (6-23) mg/dl Creatinine (0.6-1.4) mg/dl Est Cr Clr Drug Dosing ml/min Est GFR ( Amer) ml/min Est GFR (Non-Af Amer) ml/min BUN/Creatinine Ratio (10-20) Glucose (70-99(Fasting)) mg/dl Calcium (8.5-10.1) mg/dl Phosphorus (2.5-4.9) mg/dl Magnesium (1.7-2.4) mg/dl Albumin (3.4-5.0) gm/dl 25-OH Vitamin D Total 22.7 L (30-100) ng/ml PG Care Time/CCT Total # of Minutes Spent Total Time Spent with Patient: Total time spent is greater than 50% in coordination of care (as documented) at patient's floor/unit and/or counseling patient: Coding Level of Care Code 57882 Subseq Hosp Care Lvl 3 Diagnoses Anasarca R60.1 Hypothyroidism E03.9 COVID-19 U07.1 CKD (chronic kidney disease) N18.9 Lymphedema I89.0 CML (chronic myelocytic leukemia) C92.10 Hypertension I10 Atrial flutter I48.92
[2022-01-17 07:54] LABS: Albumin Level 3.6 gm/dl (3.4-5.0); BUN Creatinine Ratio 36.4 (10-20); Calcium 10.1 mg/dl (8.5-10.1); Creatinine Clr Calc Pharmacy 72.5 ml/min; Est GFR (African American) 61.1 ml/min; Est GFR (Non-African American) 52.7 ml/min; Phosphorus 3.7 mg/dl (2.5-4.9); Potassium 3.5 mmol/L (3.5-5.1)
[2022-01-17] MEDS: POTASSIUM CHLORIDE CRTAB 20 MEQ TABCR PO SCH ×3 (08:13→16:34)
[2022-01-17] MEDS: EUCERIN CR 120 GM JAR EXT SCH ×2 (08:14→20:29)
[2022-01-17] MEDS: DOCUSATE SODIUM/SENNA 50/8.6MG TAB PO SCH (08:14)
[2022-01-17] MEDS: POLYETHYLENE (MIRALAX) 17 GM PACK PO SCH (08:14)
[2022-01-17] MEDS: dexAMETHasone 6 MG in SYRINGE 0 ML IV SCH (08:15)
[2022-01-17] MEDS: FAMOTIDINE 20 MG TAB PO SCH ×2 (08:15→20:30)
[2022-01-17] MEDS: MAGNESIUM OXIDE 400 MG TAB PO SCH (08:16)
[2022-01-17] MEDS: BUMETANIDE 4 MG in SYRINGE 0 ML IV SCH (08:16)
[2022-01-17] MEDS: METOPROLOL SUCC 50MG EXT REL TAB PO SCH ×2 (08:17→20:30)
[2022-01-17] MEDS: metOLazone 5 MG TABLET PO SCH (08:17)
--- NOTE | 2022-01-17 10:25 | Nephrology Progress Note ---
Date of Service January 17, 2022 Assessment & Plan (1) Anasarca: (2) Chronic kidney disease, stage 3a: (3) Lymphedema: (4) Hypertension: Plan: 66-year-old gentlemen with h/o stage 3A CKD b/l Cr 1.5, CML, appendiceal CA s/p R hemicolectomy, atrial fibrillation/flutter, hypothyroidism admitted with progressive weight gain, lymphedema, anasarca over last 4 months. Reports almost 60 lb weight gain since July 2021. Was on Bumex 2 mg po BID as an outpatient without much response and developed progressive abdominal distention and tense LE swelling that limits his ability to ambulate. He was started on Bumex gtt at 0.5mg/hr. Of note, he did test + for COVID upon admission but remains asymptomatic. Urine analysis with low-grade proteinuria but serum albumin normal. Creatinine slowly started to increase over last few months while he was on high dose of diuretics, prior to that had pretty decent renal function. CT abdomen pelvis showed mild cortical atrophy but no hydronephrosis. There is concern for cirrhotic changes in liver. 2D echo show ed normal EF, no significant LVH. LFTs were normal. Concern for right-sided heart failure. Renal function and electrolytes staying relatively stable. Continues to be net negative. -- Continue Bumex 4 mg IV bid and metolazone 10 mg Monitor urine output, aim for net negative 1-2 L per 24 hours. Monitor renal function electrolytes closely, high risk of worsening of renal function. -- plan to change to Bumex 4 mg p.o. b.i.d. starting tomorrow, continue on metolazone 10 mg daily. If remained negative, will start to decrease diuretics with increasing metolazone to 5 mg and Bumex to 3 mg twice a day -- limit fluid intake to less than 1.5 L per day, encourage low-salt diet, elevate legs. will follow Admission and Anticipated Discharge Date Admission Date: January 10, 2022 Imedla Luciano was seen and evaluated this morning, his was on speaker phone. He feels well, no shortness of breath or chest pain, noticed continued improvement in abdominal edema. Urine output more than 7 L and > 6 L net negative last 24 hours, total >22 L negative. Renal function staying relatively stable, electrolyte acceptable. Continues to have lymphedema, abdominal wall edema. Review of Systems Review of Systems: Detailed review of system was otherwise unremarkable except mentioned above. Physical Exam Constitutional: WD/WN, vitals as above + edematous; no acute distress Eyes: + anicteric sclerae Neck: normal visual inspection Respiratory: no respiratory distress Auscultation: + diminished lung sounds Cardiovascular: Rate/Rhythm: regular rate and regular rhythm Heart Sounds: normal S1 and normal S2 Extremities: + edema Gastrointestinal (Abdomen): Inspection/Auscultation: + abdominal edema Percussion/Palpation: + ascites; abdomen nontender Skin: no rashes Neurologic: no focal motor deficits and not confused Psychiatric: Orientation: alert and oriented x 3 Results & Data ([facility]) Vital Signs (Past 12 Hours) Vital Signs Temp Pulse Pulse Resp BP Pulse Ox 01/17/22 08:18 61 01/17/22 07:38 36.4 C L 55 L 19 116/62 94 01/17/22 04:45 36.5 C 56 L 16 114/59 L 92 01/16/22 23:09 57 L 01/16/22 22:58 36.4 C L 56 L 16 124/63 96 PG Care Time/CCT Total # of Minutes Spent Total Time Spent with Patient: Total time spent is greater than 50% in coordination of care (as documented) at patient's floor/unit and/or counseling patient: Coding Level of Care Code 06239 Subseq Hosp Care Lvl 3 Diagnoses Anasarca R60.1 Chronic kidney disease, stage 3a N18.31 Lymphedema I89.0 Hypertension I10
[2022-01-17] MEDS: acetaZOLAMIDE 250 MG TAB PO SCH ×2 (11:21→20:30)
[2022-01-17] MEDS: ENOXAPARIN INJ 40 MG/0.4 ML SYR SQ SCH ×2 (11:21→20:30)
[2022-01-17] MEDS ORDERED: BUMETANIDE 2 MG in SYRINGE 0 ML IV SCH (17:00)
[2022-01-17] MEDS ORDERED: BUMETANIDE 4 MG in SYRINGE 0 ML IV SCH (17:00)
[2022-01-18] MEDS: LEVOTHYROXINE SODIUM 112 MCG TABLET PO SCH (06:09)
[2022-01-18 07:17] LABS: Hematocrit (blood only) 34.4 % (42-52); Hemoglobin 11.3 g/dL (14.0-18.0); Mean Corpuscular Hemoglobin 32.8 pg (25-34); Mean Corpuscular Hgb Conc 32.8 g/dL (32-36); Mean Platelet Volume 11.3 fL (7.4-10.4); Platelet Count 178 K/uL (130-400); RDW Coefficient of Variation 16.3 % (11.5-14.5); Red Blood Count 3.44 M/uL (4.7-6.1); White Blood Count 19.11 K/uL (4.8-10.8)
--- NOTE | 2022-01-18 07:28 | Hospitalist Progress Note ---
Date of Service January 18, 2022 Assessment & Plan (1) Anasarca: Plan: 66 yo M Hx atrial flutter, HTN, hypothyroidism, CML, chronic lymphedema admitted for anasarca impeding patient's ability to walk and perform ADLs. Anasarca * Presents with several months of worsening edema, with significant pitting edema to the level of the top of abdomen. * -- Reports worsening edema since July 2021 and reports weight of 250 lbs but reports progressive weight gain (60lb since ) * Last Echo 10/2021 without evidence of LV dysfunction but grade II pseudonormlization pattern diastolic dysfunction * Does admit to some dietary indiscretion with regard to salt intake -- EDUCATED TO LIMIT/AVOID IN DIET AT D/C * Also has a history of lymph node removal in the abdomen/pelvis causing some chronic lymphedema (36 lymph nodes removed) from when he had R hemicolectomy/removal of appendiceal cancer and has some level of chronic lymphedema * Follows with wound care outpatient and rec'd continued follow up. Has lymphedema pumps at home per their most recent note. * --> Per their note, patient to have had arterial studies * --> done 12/20/21 --> no evidence for DVTs bilaterally, above knee * --> Rec for consider additional diuresis for elevated CVP and LT GSV/RT calf varieces ablation could be considered * Also with hx CML and follows with Dr Lima and to be starting Gleevec soon -- can reach out for discussion if needed Nephrology on consulted -- may have to accept some level of azotemia * Placed on bumex gtt on admission, little response, increased dose to 1mg/hr added diuril for low UOP which subsequently increased and patient with good response * See below regarding titration to bumex IV BID/metolazone Continue low sodium diet, fluid restriction 1500ml/daily Aim net negative 1-2L/24 hours. 01/15 Net negative 5.2L over past 24 hours (cumulative -11.2L during stay) * --> Transitioned to Bumex 4mg IV BID, metolazone 10mg daily. D/c Diuril * --> Adequate UOP and continues net negative * --> Exchanged soto 01/15 for hematuria, clot noted initially (had trauma when initially placed in ER and prior UA could have from trauma) * --> Repeat UA after exchange without bacteria --> no AMS/fever and WBC wnl on repeat despite steroids * --> Continue to monitor BMP in AM/electrolyte replacement as needed. Cr stable and improved to 1.5 likely as kidneys able to perfuse now that not so volume overloaded? 01/16 * -->WBC elevated but likely 2nd to steroids (afebrile), no urinary symptoms. soto w/ clear urine draining currently * Cr improved to 1.47 Continues bumex 4mg IV BID, metolazone 10mg daily * --> Discussed with Nephrology given elevated CO2 41 and will try diamox x 3 days and monitor response Considering decreasing diuretic dosing now that returning closer to baseline and mobility also much improved * Net negative 4.8L prior 24 hours (cumulative -16L) Continue fluid restriction/low sodium diet -- encourage dietary compliance with low salt at d/c 01/17 Less LE edema (patient reports about at baseline), less abd edema as well as scrotal edema (although still significant) Per Nephrology, would like to continue Bumex 4mg IV BID and metolazone 10mg through today --> Has had net negative 6.5L in past 24 hours, cumulative --22.6L Cr stable at 1.4 and better than reported baseline 1.5 Continue diamox BID for elevated CO2, remains elevated at 43 Also checked Vit D level, low at 22 and started oral supplementation Plans to decrease bumex tomorrow possibly to 3mg BID and metolazone decreased to 5mg but will monitor response Monitor AM labs 01/18 --> Net negative 7.3L over past 24 hours (cumulative -29.9L). Cr stable, slightly 1.48 from 1.4 on 01/17 but overall remaining stable Slightly concentrated urine and changing to bumex 2mg PO BID today with metolzaone 5mg x 1. Continues on diamox (CO2 43--41 on am labs) Aiming for net even to slightly negative over next 24 hours DVT ppx: Lovenox SQ BID (2) Hypothyroidism: Plan: * Continue levothyroxine, takes 100mcg daily. * Checking d/t edema * -- ELEVATED and continued current dose, but was also elevated last month during check by PCP to 4.56 and no adjustments made at that time * He DOES endorse COMPLIANCE, taking 1.5-2 hours prior to other medications/food int he morning * --> TSH checked, elevated to 6.38 but could be elevated in setting of stress but given symptoms of constipation/fatigue/edema will increase to 112mcg daily and will need f/u with PCP in 4-6 weeks with PCP/adjustment if needed (3) COVID-19: Plan: COVID-19: * Incidentally noted to be COVID-19 positive on admission testing, no cough/sob but over course of couple of days, low SpO2 to 90, with goal in +COVID patients >94% * CRP/Procalcitonin checked * --> 6.49 and 2.27 respectively --> CRP 4.84 on repeat after starting steroids * Decadron 6mg daily started 01/14 -- continue (day 5) * Supplemental O2 to maintain sats >94%, titrate as able. * Placed on pepcid BID for GI prophylaxis but will need to monitor given prior prior significant GI bleeding req hospitalization and >5 u PRBC and possible gastritis on imaging however denied any GI symptoms except fullness * Lovenox BID for DVT prophylaxis CO2 elevated, diamox for diuretic as above, monitor response Currently 97% on RA (4) CKD (chronic kidney disease): Plan: Acute on Chronic Kidney Disease, Hypokalemia: * History of, with baseline creatinine 1.3-1.5. On admission with creatinine 1.5 but now up to 2.18 * -Suspect in setting of microvascular disease and poor renal perfusion related to R heart failure * K 3.8 on admission * Cr 1.48 (from 2.18), BUN 51 * Changed PO K supplementation to 40mg TID from BID given K 3.5 on AM and was starting metolazone ->will continue this dose given K 3.5 on AM labs and continuing metolazone Appreciate continued nephrology input --> ok w/ adding diamox to see if additional benefit for elevated CO2 w/ HF, day #2 Also checked Vit D level, low 22, replacement ordered Cr stable -- see above regarding diuretics (5) Lymphedema: Plan: has lymphedema pumps at home added eucerin for cracked/hardened skin elevation rec f/u clinic at d/c --> updated and transferred to for more information on local availability as [facility] closed but should have some availability through [facility] --> Will provide rx at discharge (6) CML (chronic myelocytic leukemia): Plan: Chronic myelocytic leukemia, appendiceal cancer: * Diagnosed with CML in 2010; not currently on medical therapy but with intention to start Gleevec in the near future. * -- Of note - CT does show numerous mesenteric lymph nodes (likely reactive); shotty retroperitoneal lymph nodes as well * - Diagnosed with appendiceal cancer in 2011, s/p right hemicolectomy and sig nificant pelvic lymph node removal which were negative for mets. * CBC without any belén abnormalities except for chronic anemia (MACROCYTIC IN PAST AND WILL ALSO CHECK B12/FOLATE IN AM) * Hgb 10.0 -- no evidence of active bleeding at this time, however would expect increase with diuresis as above (improved from 9.1) * Checking B12/folate given macrocytosis as well, which could be contributing * --> B12 819, Folate 7.58 * Cbc IN AM but hgb improved --> of note, WBC elevation was initial indication he had CML in past (stated had WBC 11-12k) * F/U with Dr Lima [place] to [place] Gleevec * Consider checking iron stores in am/replacement if needed --> iron borderline, low trans % sat , can give dose venofer if needed vs supplementaion but given Cherie/stable hgb will hold off for now Leukocytosis * 2nd decadron for #3, afebrile * CXR for +COVID --> no consolidative pneumonia * Repeat UA in evening 01/13 for darkened/blood in urine --> 1+ bacteria, +nitrate, >WBC --> no symptoms reported but will monitor. * --> Soto exchanged and repeat UA without bacteria --> asymptomatic and will not treat at this time (trauma during initial insertion) --> Treat if +fever/symptomatic/AMS or develops urinary symptoms Outpatient f/u with oncology to start Gleevec for CML (7) Hypertension: Plan: BP stable Continue home metoprolol 50mg BID Bumex as above for #1 (8) Atrial flutter: Plan: * History of, on rate control therapy. Previously underwent ablation and is currently in sinus rhythm; no issues on telemetry * Continue metoprolol succinate 50mg PO BID. * Not on DOAC due to history of significant GI bleed requiring hospitalization and over 5 units of blood for stabilization Has been sinus 40-60bpm on telemetry Plan: Continued inpatient stay, diuresis as above Admission and Anticipated Discharge Date Admission Date: January 10, 2022 Supervising Physician Co-Signing Physician Notes Attending Attestation - Chart reviewed in detail, care plan d/w SHERRON Butler. I agree w/ the raza components of her documentation. Complicated 66yo male with anasarca. Multifactorial (lymphedema, CKD, acute/chronic diastolic CHF, etc). Remains on IV diuretics with copious response. Appreciate nephrology assistance. COVID-19 + status - continue airborne isolation; remains on decadron due to hypoxia. Day #5 of steroids. Juan Levya MD Subjective Patient evaluated this morning Doing well, urine in Soto slightly concentrated diuretics changed by nephrology edema at baseline per patient -- discussed changing to Bumex BID and metolazone for today. if balance slightly negative/neutral will d/c further metolazone arranged wheeled walker as rec by PT -- to be dropped off at house today No fever, chills, chest pain, shortness of breath, lightheadedness, dizziness. Moving bowels. No pain. Questions/concerns addressed at this time -- anticipate d/c later in weekend vs early next week pending course. Review of Systems Review of Systems: All systems reviewed & are unremarkable except as noted in HPI & below Physical Exam Physical Exam: General: WD/WN obese male sitting up in recliner eating lunch, NAD HEENT: head normocephalic, atraumatic, trachea midline without deviation (prior scar noted) Resp: CTAB, diminished in bases, no w/c/r, on room air 95% CV: RRR, +systolic murmur, 3+ non-pitting b/l LE with less weeping, dried/thickened/crackled skin (prior reports of cellulitis to RLE) now with DARREN wraps B/L LE, non-tender to palpation, pulses diminished, calves non-tender to palpation GI: +BS, +distended (less), +edema (less), non tender to palpation, +scrotal edema (less but still significant but no further weeping) : soto with more concentrated yellow urine draining Neuro/Psych: AOx3, cooperative, answers questions appropriately, no focal deficit Results & Data Results & Data ([facility]) Vital Signs (Past 12 Hours) Vital Signs Temp Pulse Pulse Resp BP Pulse Ox 01/18/22 07:14 36.4 C L 52 L 18 109/55 L 98 01/18/22 03:11 36.6 C 55 L 18 122/58 L 96 01/18/22 00:06 36.4 C L 54 L 18 115/54 L 95 01/17/22 23:02 63 01/17/22 20:25 36.4 C L 62 16 124/58 L 96 Laboratory Results 01/18/22 01/18/22 Range/Units 06:57 06:57 WBC 19.11 H (4.8-10.8) K/uL RBC 3.44 L (4.7-6.1) M/uL Hgb 11.3 L (14.0-18.0) g/dL Hct 34.4 L (42-52) % MCV 100.0 (80-100) fL MCH 32.8 (25-34) pg MCHC 32.8 (32-36) g/dL RDW Std Deviation 59.0 H (36.4-46.3) fL RDW Coeff of Howie 16.3 H (11.5-14.5) % Plt Count 178 (130-400) K/uL MPV 11.3 H (7.4-10.4) fL Sodium 138 (136-145) mmol/L Potassium 3.5 (3.5-5.1) mmol/L Chloride 88 L (98-107) mmol/L Carbon Dioxide 41 H* (21-32) mmol/L Anion Gap 9 (3-11) BUN 55 H (6-23) mg/dl Creatinine 1.48 H (0.6-1.4) mg/dl Est Cr Clr Drug Dosing 68.6 ml/min Est GFR ( Amer) 57.1 ml/min Est GFR (Non-Af Amer) 49.3 ml/min BUN/Creatinine Ratio 37.2 H (10-20) Glucose 140 H (70-99(Fasting)) mg/dl Calcium 10.3 H (8.5-10.1) mg/dl Phosphorus 4.0 (2.5-4.9) mg/dl Magnesium 1.9 (1.7-2.4) mg/dl Albumin 3.7 (3.4-5.0) gm/dl PG Care Time/CCT Total # of Minutes Spent Total Time Spent with Patient: Total time spent is greater than 50% in coordination of care (as documented) at patient's floor/unit and/or counseling patient: Coding Level of Care Code 93575 Subseq Hosp Care Lvl 3 Diagnoses Anasarca R60.1 Hypothyroidism E03.9 COVID-19 U07.1 CKD (chronic kidney disease) N18.9 Lymphedema I89.0 CML (chronic myelocytic leukemia) C92.10 Hypertension I10 Atrial flutter I48.92
[2022-01-18 07:59] LABS: Albumin Level 3.7 gm/dl (3.4-5.0); BUN Creatinine Ratio 37.2 (10-20); Calcium 10.3 mg/dl (8.5-10.1); Creatinine Clr Calc Pharmacy 68.6 ml/min; Est GFR (African American) 57.1 ml/min; Est GFR (Non-African American) 49.3 ml/min; Magnesium 1.9 mg/dl (1.7-2.4); Potassium 3.5 mmol/L (3.5-5.1)
[2022-01-18] MEDS ORDERED: metOLazone 5 MG TABLET PO ONE (08:45)
[2022-01-18] MEDS ORDERED: BUMETANIDE 1 MG TAB PO SCH (09:00)
[2022-01-18] MEDS: POTASSIUM CHLORIDE CRTAB 20 MEQ TABCR PO SCH ×3 (09:04→16:17)
[2022-01-18] MEDS: BUMETANIDE 1 MG TAB PO SCH ×2 (09:05→16:16)
[2022-01-18] MEDS: DOCUSATE SODIUM/SENNA 50/8.6MG TAB PO SCH (09:06)
[2022-01-18] MEDS: MAGNESIUM OXIDE 400 MG TAB PO SCH (09:07)
[2022-01-18] MEDS: FAMOTIDINE 20 MG TAB PO SCH ×2 (09:08→21:10)
[2022-01-18] MEDS: acetaZOLAMIDE 250 MG TAB PO SCH ×2 (09:08→21:10)
[2022-01-18] MEDS: EUCERIN CR 120 GM JAR EXT SCH ×2 (09:09→20:37)
[2022-01-18] MEDS: CHOLECALCIFEROL 5,000 UNITS 125 MCG TAB PO SCH (09:10)
[2022-01-18] MEDS: dexAMETHasone 6 MG in SYRINGE 0 ML IV SCH (09:10)
[2022-01-18] MEDS: POLYETHYLENE (MIRALAX) 17 GM PACK PO SCH (09:11)
[2022-01-18] MEDS: METOPROLOL SUCC 50MG EXT REL TAB PO SCH ×2 (09:11→20:39)
[2022-01-18] MEDS: metOLazone 5 MG TABLET PO SCH (10:36)
--- NOTE | 2022-01-18 10:59 | Nephrology Progress Note ---
Date of Service January 18, 2022 Assessment & Plan (1) Anasarca: (2) Chronic kidney disease, stage 3a: (3) COVID-19: (4) Hypertension: (5) Lymphedema: Plan: 66-year-old gentlemen with h/o stage 3A CKD b/l Cr 1.5, CML, appendiceal CA s/p R hemicolectomy, atrial fibrillation/flutter, hypothyroidism admitted with progressive weight gain, lymphedema, anasarca over last 4 months. Reports almost 60 lb weight gain since July 2021. Was on Bumex 2 mg po BID as an outpatient without much response and developed progressive abdominal distention and tense LE swelling that limits his ability to ambulate. He was started on Bumex gtt at 0.5mg/hr. Of note, he did test + for COVID upon admission but remains asymptomatic. Urine analysis with low-grade proteinuria but serum albumin normal. Creatinine slowly started to increase over last few months while he was on high dose of diuretics, prior to that had pretty decent renal function. CT abdomen pelvis showed mild cortical atrophy but no hydronephrosis. There is concern for cirrhotic changes in liver. 2D echo showed normal EF, no significant LVH. LFTs were normal. Concern for right- sided heart failure. initially was on Bumex drip and Diuril with excellent diuresis eventually Bumex changed to IV push. Has been having excellent urine output with net negative total 30 L since admission with significant improvement in anasarca and currently seems to be pretty close to Euvolemic. Renal function and electrolytes staying relatively stable. Continues to be net negative, total 30 L. --Change to Bumex 2 mg po bid and metolazone 5 mg today and then Monitor urine output and decide, aim for net even to slightly negative per 24 hours. Monitor renal function electrolytes closely. -- limit fluid intake to less than 1.5 L per day, encourage low-salt diet, elevate legs. will follow Admission and Anticipated Discharge Date Admission Date: January 10, 2022 Subjective Mustapha was seen and evaluated this morning. He feels well, no shortness of breath or chest pain, noticed continued improvement in abdominal edema. Urine output more than 8 L and > 6 L net negative last 24 hours, total 30 L negative. Renal function staying relatively stable, electrolyte acceptable. significant improvement in lymphedema, abdominal wall edema. Review of Systems Review of Systems: Detailed review of system was otherwise unremarkable except mentioned above. Physical Exam Constitutional: WD/WN, vitals as above no acute distress Eyes: + anicteric sclerae Neck: normal visual inspection Respiratory: no respiratory distress Auscultation: lungs clear to auscultation bilaterally Cardiovascular: Rate/Rhythm: regular rate and regular rhythm Heart Sounds: normal S1 and normal S2 Extremities: + edema Gastrointestinal (Abdomen): Inspection/Auscultation: normal bowel sounds; no abdominal edema Percussion/Palpation: abdomen nontender and no ascites Skin: no rashes Neurologic: no focal motor deficits and not confused Psychiatric: Orientation: alert and oriented x 3 Results & Data ([facility]) Vital Signs (Past 12 Hours) Vital Signs Temp Pulse Pulse Resp BP Pulse Ox 01/18/22 07:14 36.4 C L 52 L 18 109/55 L 98 01/18/22 03:11 36.6 C 55 L 18 122/58 L 96 01/18/22 00:06 36.4 C L 54 L 18 115/54 L 95 01/17/22 23:02 63 PG Care Time/CCT Total # of Minutes Spent Total Time Spent with Patient: Total time spent is greater than 50% in coordination of care (as documented) at patient's floor/unit and/or counseling patient: Coding Level of Care Code 41864 Subseq Hosp Care Lvl 3 Diagnoses Anasarca R60.1 Chronic kidney disease, stage 3a N18.31 COVID-19 U07.1 Hypertension I10 Lymphedema I89.0
[2022-01-18] MEDS: ENOXAPARIN INJ 40 MG/0.4 ML SYR SQ SCH ×2 (11:24→23:55)
[2022-01-19] MEDS: LEVOTHYROXINE SODIUM 112 MCG TABLET PO SCH (05:33)
[2022-01-19 07:04] LABS: Hemoglobin 11.8 g/dL (14.0-18.0); Mean Corpuscular Hemoglobin 33.3 pg (25-34); Mean Corpuscular Hgb Conc 33.7 g/dL (32-36); Mean Corpuscular Volume 98.9 fL (80-100); Mean Platelet Volume 11.2 fL (7.4-10.4); Platelet Count 180 K/uL (130-400); RDW Coefficient of Variation 16.1 % (11.5-14.5); RDW Standard Deviation 58.1 fL (36.4-46.3); Red Blood Count 3.54 M/uL (4.7-6.1); White Blood Count 20.11 K/uL (4.8-10.8)
[2022-01-19 07:45] LABS: Albumin Level 3.5 gm/dl (3.4-5.0); BUN Creatinine Ratio 45.7 (10-20); C Reactive Protein 1.38 mg/dl (0-0.5); Calcium 9.9 mg/dl (8.5-10.1); Creatinine Clr Calc Pharmacy 74.6 ml/min; Est GFR (African American) 68.7 ml/min; Est GFR (Non-African American) 59.3 ml/min; Phosphorus 4.1 mg/dl (2.5-4.9); Potassium 3.2 mmol/L (3.5-5.1)
[2022-01-19] MEDS ORDERED: POTASSIUM CHLORIDE CRTAB 20 MEQ TABCR PO STA (08:23)
--- NOTE | 2022-01-19 08:29 | Hospitalist Progress Note ---
Date of Service January 19, 2022 Assessment & Plan (1) Anasarca: Plan: 66 yo M Hx atrial flutter, HTN, hypothyroidism, CML, chronic lymphedema admitted for anasarca impeding patient's ability to walk and perform ADLs. Anasarca * Presents with several months of worsening edema, with significant pitting edema to the level of the top of abdomen. * -- Reports worsening edema since July 2021 and reports weight of 250 lbs but reports progressive weight gain (60lb since ) * Last Echo 10/2021 without evidence of LV dysfunction but grade II pseudonormlization pattern diastolic dysfunction * Does admit to some dietary indiscretion with regard to salt intake -- EDUCATED TO LIMIT/AVOID IN DIET AT D/C * Also has a history of lymph node removal in the abdomen/pelvis causing some chronic lymphedema (36 lymph nodes removed) from when he had R hemicolectomy/removal of appendiceal cancer and has some level of chronic lymphedema * Follows with wound care outpatient and rec'd continued follow up. Has lymphedema pumps at home per their most recent note. * --> Per their note, patient to have had arterial studies * --> done 12/20/21 --> no evidence for DVTs bilaterally, above knee * --> Rec for consider additional diuresis for elevated CVP and LT GSV/RT calf varieces ablation could be considered * Also with hx CML and follows with Dr Lima and to be starting Gleevec soon -- can reach out for discussion if needed Nephrology on consulted -- may have to accept some level of azotemia * Placed on bumex gtt on admission, little response, increased dose to 1mg/hr added diuril for low UOP which subsequently increased and patient with good response * See below regarding titration to bumex IV BID/metolazone Continue low sodium diet, fluid restriction 1500ml/daily Aim net negative 1-2L/24 hours. 01/15 Net negative 5.2L over past 24 hours (cumulative -11.2L during stay) * --> Transitioned to Bumex 4mg IV BID, metolazone 10mg daily. D/c Diuril * --> Adequate UOP and continues net negative * --> Exchanged soto 01/15 for hematuria, clot noted initially (had trauma when initially placed in ER and prior UA could have from trauma) * Repeat UA after exchange without bacteria --> no AMS/fever and WBC wnl on repeat despite steroids * --> Cr 1.5 01/16 * -->WBC elevated but likely 2nd to steroids (afebrile), no urinary symptoms. soto w/ clear urine draining currently * Cr improved to 1.47, continued on Bumex 4mg IV BID, metolazone 10mg. Diamox x 3 days. Net negative 4.8L (cumulative 16) 01/17 * Less LE edema (patient reports about at baseline), less abd edema as well as scrotal edema (although still significant) * Per Nephrology, would like to continue Bumex 4mg IV BID and metolazone 10mg through today * --> Has had net negative 6.5L in past 24 hours, cumulative --22.6L * Cr 1.4, diamox also continued * Vit D level checked given CKD -- low 22, replacement and continue at d/c 01/18 * Reduced bumex to 2mg PO BID, metolazone 5mg x 1, diamox * Net 7.3L over 24hrs (cumulative 29.9L) 01/19 * Held am bumex, diuresis of additional -6.5L (cumulative 37.4L) * Will keep soto in for today, plan to d/c in AM first thing in anticipation for discharge * Completed dosing for diamox, supplementation for K * --> Resume bumex 2mg PO BID this evening and will monitor response * Cr further improved to 1.27 * --> If net negative/even will continue this dose at discharge and patient can have close follow up with PCP/continued monitoring of labs/volume status * Encouraged daily weights/fluid restriction and low salt intake at discharge DVT ppx: Lovenox SQ BID (2) Hypothyroidism: Plan: On 100mcg daily TSH checked outpatient earlier this year, elevated to 4.56. Endoses compliance and w/ edema, constipation/fatigue, increased to 112mcg daily (TSH elevated to 6.38 this admit) and have PCP obtain repeat TFT next month during appointment (3) COVID-19: Plan: * Incidentally noted to be COVID-19 positive on admission testing, no cough/sob but over course of couple of days, low SpO2 to 90, with goal in +COVID patients >94% * CRP/Procalcitonin checked--> 6.49 and 2.27 respectively --> CRP 4.84 on repeat after starting steroids * Decadron 6mg daily started 01/14 -- continue (day 6) and after tomorrows dose will need additional 3 days to complete course * Supplemental O2 to maintain sats >94%, titrate as able. * Placed on pepcid BID for GI prophylaxis but will need to monitor given prior prior significant GI bleeding req hospitalization and >5 u PRBC and possible gastritis on imaging however denied any GI symptoms except fullness * Lovenox BID for DVT prophylaxis, hgb stable and no bleeding reported Currently 96% on RA (4) CKD (chronic kidney disease): Plan: Acute on Chronic Kidney Disease, Hypokalemia: Nephrology on consult * History of, with baseline creatinine 1.3-1.5. On admission with creatinine 1.5 but now up to 2.18 * Suspect in setting of microvascular disease and poor renal perfusion related to R heart failure * K 3.8 on admission * Cr 1.48 (from 2.18) * Changed PO K supplementation to 40mg TID from BID given K 3.5 on AM and was starting metolazone ->will continue this dose given K 3.5 on AM labs and continuing metolazone Also checked Vit D level, low 22, replacement ordered BMP in AM and will need close f/u at d/c (5) Lymphedema: Plan: has lymphedema pumps at home added eucerin for cracked/hardened skin elevation rec f/u clinic at d/c --> updated and transferred to for more information on local availability as [place] clinic closed but should have some availability through [employer] --> Will provide rx at discharge (6) CML (chronic myelocytic leukemia): Plan: Chronic myelocytic leukemia, appendiceal cancer: * Diagnosed with CML in 2010; not currently on medical therapy but with intention to start Gleevec in the near future. * -- Of note - CT does show numerous mesenteric lymph nodes (likely reactive); shotty retroperitoneal lymph nodes as well * - Diagnosed with appendiceal cancer in 2011, s/p right hemicolectomy and significant pelvic lymph node removal which were negative for mets. * CBC without any belén abnormalities except for chronic anemia (MACROCYTIC IN PAST AND WILL ALSO CHECK B12/FOLATE IN AM) * Hgb 10.0 -- no evidence of active bleeding at this time, however would expect increase with diuresis as above (improved from 9.1) * Check B12/folate given macrocytosis as well, which could be contributing * --> B12 819, Folate 7.58 * Cbc IN AM but hgb improved --> of note, WBC elevation was initial indication he had CML in past (stated had WBC 11-12k) * F/U [place]leevec * Consider checking iron stores in am/replacement if needed --> iron borderline, low trans % sat , can give dose venofer if needed vs supplementaion but given Cherie/stable hgb will hold off for now Leukocytosis * 2nd decadron for #3, afebrile * CXR for +COVID --> no consolidative pneumonia * Repeat UA in evening 01/13 for darkened/blood in urine --> 1+ bacteria, +nitrate, >WBC --> no symptoms reported but will monitor. * --> Soto exchanged and repeat UA without bacteria --> asymptomatic and will not treat at this time (trauma during initial insertion) --> Treat if +fever/symptomatic/AMS or develops urinary symptoms Outpatient f/u with oncology to start Gleevec for CML (7) Hypertension: Plan: BP stable Continue home metoprolol 50mg BID Bumex as above for #1 (8) Atrial flutter: Plan: * History of, on rate control therapy. Previously underwent ablation and is currently in sinus rhythm; no issues on telemetry * Continue metoprolol succinate 50mg PO BID. * Not on DOAC due to history of significant GI bleed requiring hospitalization and over 5 units of blood for stabilization Has been sinus 40-60bpm on telemetry Plan: Continued inpatient stay, diuresis as above Possible discharge tomorrow Admission and Anticipated Discharge Date Admission Date: January 10, 2022 Subjective patient evaluated this afternoon doing well continues to diuresis with decreased amount of diuretics no fever/chills, chest pain, shortness of breath decreased edema to belly/scrotum and legs at baseline per patient. has been ambulating to bathroom with walker. will keep soto for today/overnight and have RN coming back on shift in AM remove first thing with possible discharge tomorrow. Patient in agreement with plan. Questions/concerns addressed at this time. Review of Systems Review of Systems: All systems reviewed & are unremarkable except as noted in HPI & below Physical Exam Physical Exam: General: WD/WN obese male sitting up in recliner eating lunch, NAD HEENT: head normocephalic, atraumatic, trachea midline without deviation (prior scar noted) Resp: CTAB, diminished in bases, no w/c/r, on room air 95% CV: RRR, +systolic murmur, 3+ non-pitting b/l LE with less weeping, dried/thickened/crackled skin (prior reports of cellulitis to RLE) now with DARREN wraps B/L LE, non-tender to palpation, pulses diminished, calves non-tender to palpation GI: +BS, +distended (less), +edema (less), non tender to palpation, +scrotal edema (less ) : soto with yellow urine draining Neuro/Psych: AOx3, cooperative, answers questions appropriately, no focal deficit Results & Data Results & [facility] ([facility]) Vital Signs (Past 12 Hours) Vital Signs Temp 36.5 C 01/19/22 07:16 Pulse 48 L 01/19/22 07:37 Resp 18 01/19/22 07:16 BP 112/54 L 01/19/22 07:16 Pulse Ox 96 01/19/22 07:16 Intake & Output 01/18/22 01/19/22 01/19/22 18:59 06:59 18:59 Intake Total 1100 / 1100 Output Total 4275 / 7675 3400 / 7675 Balance -4275 / -6575 -2300 / -6575 Weight 121.8 kg 116.5 kg Intake: Oral 1100 / 1100 Output: Urine Amount (Catheter) 4275 / 7675 3400 / 7675 Coude 4275 / 7675 3400 / 7675 Other: Weight Measurement Method Standing Scale Standing Scale Laboratory Results 01/19/22 01/19/22 01/19/22 Range/Units 06:50 06:50 06:50 WBC 20.11 H (4.8-10.8) K/uL RBC 3.54 L (4.7-6.1) M/uL Hgb 11.8 L (14.0-18.0) g/dL Hct 35.0 L (42-52) % MCV 98.9 (80-100) fL MCH 33.3 (25-34) pg MCHC 33.7 (32-36) g/dL RDW Std Deviation 58.1 H (36.4-46.3) fL RDW Coeff of Howie 16.1 H (11.5-14.5) % Plt Count 180 (130-400) K/uL MPV 11.2 H (7.4-10.4) fL Sodium 136 (136-145) mmol/L Potassium 3.2 L (3.5-5.1) mmol/L Chloride 87 L (98-107) mmol/L Carbon Dioxide 42 H* (21-32) mmol/L Anion Gap 7 (3-11) BUN 58 H (6-23) mg/dl Creatinine 1.27 (0.6-1.4) mg/dl Est Cr Clr Drug Dosing 74.6 ml/min Est GFR ( Amer) 68.7 ml/min Est GFR (Non-Af Amer) 59.3 ml/min BUN/Creatinine Ratio 45.7 H (10-20) Glucose 149 H (70-99(Fasting)) mg/dl Calcium 9.9 (8.5-10.1) mg/dl Phosphorus 4.1 (2.5-4.9) mg/dl C-Reactive Protein 1.38 H (0-0.5) mg/dl Albumin 3.5 (3.4-5.0) gm/dl Procalcitonin 0.52 H (0-0.5) ng/ml PG Care Time/CCT Total # of Minutes Spent Total Time Spent with Patient: Total time spent is greater than 50% in coordination of care (as documented) at patient's floor/unit and/or counseling patient: Coding Level of Care Code 82123 Subseq Hosp Care Lvl 3 Diagnoses Anasarca R60.1 Hypothyroidism E03.9 COVID-19 U07.1 CKD (chronic kidney disease) N18.9 Lymphedema I89.0 CML (chronic myelocytic leukemia) C92.10 Hypertension I10 Atrial flutter I48.92
[2022-01-19] MEDS: POTASSIUM CHLORIDE CRTAB 20 MEQ TABCR PO SCH ×4 (09:30→17:10)
[2022-01-19] MEDS: dexAMETHasone 6 MG in SYRINGE 0 ML IV SCH (09:31)
[2022-01-19] MEDS: EUCERIN CR 120 GM JAR EXT SCH ×2 (09:31→20:26)
[2022-01-19] MEDS: POLYETHYLENE (MIRALAX) 17 GM PACK PO SCH (09:32)
[2022-01-19] MEDS: DOCUSATE SODIUM/SENNA 50/8.6MG TAB PO SCH (09:33)
[2022-01-19] MEDS: CHOLECALCIFEROL 5,000 UNITS 125 MCG TAB PO SCH (10:38)
[2022-01-19] MEDS: MAGNESIUM OXIDE 400 MG TAB PO SCH (10:39)
[2022-01-19] MEDS: METOPROLOL SUCC 50MG EXT REL TAB PO SCH ×2 (10:39→20:25)
[2022-01-19] MEDS: FAMOTIDINE 20 MG TAB PO SCH ×2 (10:39→20:26)
[2022-01-19] MEDS: ENOXAPARIN INJ 40 MG/0.4 ML SYR SQ SCH ×2 (10:41→18:40)
--- NOTE | 2022-01-19 13:34 | Nephrology Progress Note ---
Date of Service January 19, 2022 Assessment & Plan (1) Anasarca: Plan: Notable improvement. Evidence of intravascular volume contraction. Diuretics reduced. Multifactorial with notable LE lymphedema complicated by hypoalbuminemia, CKD, obesity, suspected component of right sided CHF/pulmonary hypertension, and hypothyroidism. Dietary sodium and fluid restriction. Diuretics to continue to encourage a net negative fluid balance. Bumex 2 mg this afternoon and continued 2 mg PO BID. Diamox completed today. (2) Chronic kidney disease, stage 3a: Plan: CKD IIIA with a baseline creatinine of 1.2-1.5 mg/dL. Scheduled to see Dr. Giraldo in [place] as an outpatient. Vela removal for voiding trial. Close outpatient follow up. Medications appropriately dosed for kidney dysfunction. (3) COVID-19: Plan: Day 05/03 of Decadron. (4) Hypertension: Plan: BP acceptable. Volume status improving. (5) Lymphedema: Plan: Feet elevation. Close outpatient follow up with oncology. Admission and Anticipated Discharge Date Admission Date: January 10, 2022 Subjective No acute events overnight. Edema markedly improved. Overall, Rodríguez feels well today. He is hopeful to be discharged home. I discussed the plan of care with Cynthia Butler PA-C today. Review of Systems Review of Systems: All systems reviewed & are unremarkable except as noted in HPI & below Physical Exam Constitutional: well developed and + obese; no acute distress Eyes: no scleral abnormality and no corneal abnormality ENMT: Mouth: no oral mucosal abnormality and oral mucous membranes not dry Neck: normal visual inspection and trachea midline Respiratory: normal respiratory effort Auscultation: lungs clear to auscultation bilaterally Cardiovascular: Rate/Rhythm: regular rate Heart Sounds: normal S1 and normal S2 Extremities: + edema and + varicosities Musculoskeletal: Extremities: no cyanosis and no clubbing Skin: normal turgor, + induration and + skin hypertrophy Neurologic: Motor/Sensory: no tremor and no asterixis Psychiatric: Orientation: alert and oriented x 3 Results & Data ([facility]) Vital Signs (Past 12 Hours) Vital Signs Temp Pulse Pulse Resp BP Pulse Ox 01/19/22 11:37 36.4 C L 65 18 129/64 96 01/19/22 07:37 48 L 01/19/22 07:16 36.5 C 56 L 18 112/54 L 96 01/19/22 03:29 36.7 C 78 20 122/63 96 Diagnostic Findings Laboratory Results - last 24 hr 01/19/22 01/19/22 01/19/22 06:50 06:50 06:50 WBC 20.11 H RBC 3.54 L Hgb 11.8 L Hct 35.0 L MCV 98.9 MCH 33.3 MCHC 33.7 RDW Std Deviation 58.1 H RDW Coeff of Howie 16.1 H Plt Count 180 MPV 11.2 H Sodium 136 Potassium 3.2 L Chloride 87 L Carbon Dioxide 42 H* Anion Gap 7 BUN 58 H Creatinine 1.27 Est Cr Clr Drug Dosing 74.6 Est GFR ( Amer) 68.7 Est GFR (Non-Af Amer) 59.3 BUN/Creatinine Ratio 45.7 H Glucose 149 H Calcium 9.9 Phosphorus 4.1 C-Reactive Protein 1.38 H Albumin 3.5 Procalcitonin 0.52 H PG Care Time/CCT Total # of Minutes Spent Total Time Spent with Patient: Total time spent is greater than 50% in coordination of care (as documented) at patient's floor/unit and/or counseling patient: Coding Level of Care Code 57000 Subseq Hosp Care Lvl 3 Diagnoses Anasarca R60.1 Chronic kidney disease, stage 3a N18.31 COVID-19 U07.1 Hypertension I10 Lymphedema I89.0
[2022-01-19] MEDS: BUMETANIDE 1 MG TAB PO SCH (17:10)
[2022-01-19] MEDS: ACETAMINOPHEN 325 MG TAB PO PRN (17:20)
[2022-01-19 19:00] LABS: Appearance Urine Clear (Clear); Bacteria Urine Automated 3+ (Negative); Bilirubin Urine Negative (Negative); Blood Urine 3+ (Negative); Color Urine Orange; Epithelial Cell Urine Auto 0-5 /lpf (0-5); Glucose Urine UA Negative (Negative); Ketones Urine Negative (Negative); Leukocyte Esterase Urine 2+ (Negative); Nitrite Urine Negative (Negative); Protein Urine Negative (Negative); RBC Urine Automated >30 /hpf (0-4); Specific Gravity Urine 1.012 (1.000-1.030); Urobilinogen Urine Negative (Negative); pH Urine >= 9.0 (4.5-7.5)
[2022-01-19] MEDS: CIPROFLOXACIN / D5W 400 MG/200 ML BAG IV SCH (19:15)
[2022-01-20] MEDS: CIPROFLOXACIN / D5W 400 MG/200 ML BAG IV SCH (05:50)
[2022-01-20] MEDS: LEVOTHYROXINE SODIUM 112 MCG TABLET PO SCH (05:50)
[2022-01-20 07:59] LABS: Hematocrit (blood only) 34.1 % (42-52); Hemoglobin 11.1 g/dL (14.0-18.0); Mean Corpuscular Hemoglobin 31.8 pg (25-34); Mean Corpuscular Hgb Conc 32.6 g/dL (32-36); Mean Corpuscular Volume 97.7 fL (80-100); Mean Platelet Volume 11.6 fL (7.4-10.4); Platelet Count 162 K/uL (130-400); RDW Coefficient of Variation 16.4 % (11.5-14.5); RDW Standard Deviation 58.5 fL (36.4-46.3); Red Blood Count 3.49 M/uL (4.7-6.1); White Blood Count 36.15 K/uL (4.8-10.8)
--- NOTE | 2022-01-20 08:09 | Hospitalist Progress Note ---
Date of Service January 20, 2022 Assessment & Plan (1) Bacteremia: Plan: Presented with anasarca/edema failing outpatient diuretics. Had been diuresing well, however soto insertion on admission reported to be traumatic. Urine was bloody and repeat cx had Klebsiella and Ecoli (pansensitive except Nitrofurantoin) however patient reportedly asymptomatic and soto exchanged and repeat UA without evidence of bacteria and patient continue to drain yellow urine, until becoming more concentrated 01/19 and then developed slight confusion thinking he was in [place], along with increased fatigue/exercise tolerance when getting to the bathroom (of note, also in room 214 with no windows and has been inpatient 10 days now, also possible he had some delirium) and decision to place on Cipro IV overnight given prior Urine cx in hopes of possible discharge today --> HOWEVER, I did grab blood cultures in am given prior elevated procal which was trending down without abx and is being treated with decadron for +COVID on admission with pox >94% --> Temperature 38.1C last evening, along with confusion WBC 36.1k (also on decadron as mentioned), but now blood cultures from AM 01/19 12/26 sets with Gram Negative Bacilli. Repeat pending Repeat UA as asked RNing to obtain last night now with 2+ bacteria, culture with gram negative bacilli on preliminary Switched to Ceftriaxone IV while cultures pending BP 99/65 this morning and will check lactic, wnl 1.4. 250cc NSS for hypotension. Hold Bumex for this morning to prevent worsening hypotension, possible resume in AM Continue to monitor (2) Anasarca: Plan: 66 yo M Hx atrial flutter, HTN, hypothyroidism, CML, chronic lymphedema admitted for anasarca impeding patient's ability to walk and perform ADLs. Anasarca * Presents with several months of worsening edema, with significant pitting edema to the level of the top of abdomen. * -- Reports worsening edema since July 2021 and reports weight of 250 lbs but reports progressive weight gain (60lb since ) * Last Echo 10/2021 without evidence of LV dysfunction but grade II pseudonormlization pattern diastolic dysfunction * Does admit to some dietary indiscretion with regard to salt intake -- EDUCATED TO LIMIT/AVOID IN DIET AT D/C * Also has a history of lymph node removal in the abdomen/pelvis causing some chronic lymphedema (36 lymph nodes removed) from when he had R hemicolectomy/removal of appendiceal cancer and has some level of chronic lymphedema * Follows with wound care outpatient and rec'd continued follow up. Has lymphedema pumps at home per their most recent note. * --> Per their note, patient to have had arterial studies * --> done 12/20/21 --> no evidence for DVTs bilaterally, above knee * --> Rec for consider additional diuresis for elevated CVP and LT GSV/RT calf varieces ablation could be considered * Also with hx CML and follows with Dr Lima and to be starting Gleevec soon -- can reach out for discussion if needed Nephrology on consulted -- may have to accept some level of azotemia * Placed on bumex gtt on admission, little response, increased dose to 1mg/hr added diuril for low UOP which subsequently increased and patient with good response * See below regarding titration to bumex IV BID/metolazone Continue low sodium diet, fluid restriction 1500ml/daily Aim net negative 1-2L/24 hours. 01/15 Net negative 5.2L over past 24 hours (cumulative -11.2L during stay) * --> Transitioned to Bumex 4mg IV BID, metolazone 10mg daily. D/c Diuril * --> Adequate UOP and continues net negative * --> Exchanged soto 01/15 for hematuria, clot noted initially (had trauma when initially placed in ER and prior UA could have from trauma) * Repeat UA after exchange without bacteria --> no AMS/fever and WBC wnl on repeat despite steroids * --> Cr 1.5 01/16 * -->WBC elevated but likely 2nd to steroids (afebrile), no urinary symptoms. soto w/ clear urine draining currently * Cr improved to 1.47, continued on Bumex 4mg IV BID, metolazone 10mg. Diamox x 3 days. Net negative 4.8L (cumulative 16) 01/17 * Less LE edema (patient reports about at baseline), less abd edema as well as scrotal edema (although still significant) * Per Nephrology, would like to continue Bumex 4mg IV BID and metolazone 10mg through today * --> Has had net negative 6.5L in past 24 hours, cumulative --22.6L * Cr 1.4, diamox also continued * Vit D level checked given CKD -- low 22, replacement and continue at d/c 01/18 * Reduced bumex to 2mg PO BID, metolazone 5mg x 1, diamox * Net 7.3L over 24hrs (cumulative 29.9L) 01/19 * Held am bumex, diuresis of additional -6.5L (cumulative 37.4L) * Will keep soto in for today, plan to d/c in AM first thing in anticipation for discharge * Completed dosing for diamox, supplementation for K * --> Resume bumex 2mg PO BID this evening and will monitor response * Cr further improved to 1.27 * --> If net negative/even will continue this dose at discharge and patient can have close follow up with PCP/continued monitoring of labs/volume status * Encouraged daily weights/fluid restriction and low salt intake at discharge 01/20 --> again net negative, but see above/sepsis/hypotension hold bumex for today. (still cumulative net negative 38.7L, but Cr bumped back to 1.58 from low of 1.2) Will need close f/u at discharge DVT ppx: Lovenox SQ BID (held last evening for bleeding from buttocks, improved today and resumed in light of above) (3) Hypothyroidism: Plan: On 100mcg daily TSH checked outpatient earlier this year, elevated to 4.56. Endoses compliance and w/ edema, constipation/fatigue, increased to 112mcg daily (TSH elevated to 6.38 this admit) and have PCP obtain repeat TFT next month during appointment (4) COVID-19: Plan: * Incidentally noted to be COVID-19 positive on admission testing, no cough/sob but over course of couple of days, low SpO2 to 90, with goal in +COVID patients >94% * CRP/Procalcitonin checked--> 6.49 and 2.27 respectively --> CRP 4.84 on repeat after starting steroids * Decadron 6mg daily started 01/14 -- continue (day 06/02) * Supplemental O2 to maintain sats >94%, titrate as able. * Placed on pepcid BID for GI prophylaxis but will need to monitor given prior prior significant GI bleeding req hospitalization and >5 u PRBC and possible gastritis on imaging however denied any GI symptoms except fullness * Lovenox BID for DVT prophylaxis Currently 96% on RA (5) CKD (chronic kidney disease): Plan: Acute on Chronic Kidney Disease, Hypokalemia: Nephrology on consult * History of, with baseline creatinine 1.3-1.5. On admission with creatinine 1.5 but now up to 2.18 * Suspect in setting of microvascular disease and poor renal perfusion related to R heart failure * K 3.8 on admission * Cr 1.52 from 1.27 (from 2.18) * Changed PO K supplementation to 40mg TID (K 3.2 on AM labs, mag wnl1.9) 250NSS for today, resume bumex in AM Also checked Vit D level, low 22, replacement ordered BMP in AM and will need close f/u at d/c (6) Lymphedema: Plan: has lymphedema pumps at home added eucerin for cracked/hardened skin elevation rec f/u clinic at d/c --> updated and transferred to for more information on local availability as [facility] closed but should have some availability through [facility] --> Will provide rx at discharge (7) CML (chronic myelocytic leukemia): Plan: Chronic myelocytic leukemia, appendiceal cancer: * Diagnosed with CML in 2010; not currently on medical therapy but with intention to start Gleevec in the near future. * -- Of note - CT does show numerous mesenteric lymph nodes (likely reactive); shotty retroperitoneal lymph nodes as well * - Diagnosed with appendiceal cancer in 2011, s/p right hemicolectomy and significant pelvic lymph node removal which were negative for mets. * CBC without any belén abnormalities except for chronic anemia (MACROCYTIC IN PAST AND WILL ALSO CHECK B12/FOLATE IN AM) B12 819, Folate 7.58 * Cbc IN AM but hgb improved --> of note, WBC elevation was initial indication he had CML in past (stated had WBC 11-12k) * F/U with Dr Lima at de to start Gleevec (8) Hypertension: Plan: BP stable Continue home metoprolol 50mg BID Bumex as above on hold, NSS for hypotension (9) Atrial flutter: Plan: * History of, on rate control therapy. Previously underwent ablation and is currently in sinus rhythm; no issues on telemetry * Continue metoprolol succinate 50mg PO BID. * Not on DOAC due to history of significant GI bleed requiring hospitalization and over 5 units of blood for stabilization Has been sinus 40-60bpm on telemetry Admission and Anticipated Discharge Date Admission Date: January 10, 2022 Subjective patient evaluated this afternoon discouraged about having to stay inpatient, but understands reasoning why and need for treatment given positive blood cultures switched to Rocephin this morning, tolerating well. repeat blood cultures pending no further fevers holding Bumex for today, plans to resume in AM. less bleeding from buttocks today and resumed Lovenox to remove Soto today for voiding trial, bernard given the UTI/blood cultures (repeat UA last night + bacteria). Patient denies any further fever/chills since last evening. No chest pain or shortness of breath. Eating/drinking without issues. nephrology following Review of Systems Review of Systems: All systems reviewed & are unremarkable except as noted in HPI & below Physical Exam Physical Exam: General: WD/WN obese male sitting up in recliner eating lunch, NAD but fatigued appearing HEENT: head normocephalic, atraumatic, trachea midline without deviation (prior scar noted) Resp: CTAB, diminished in bases, no w/c/r, on room air 95% CV: RRR, +systolic murmur, 3+ non-pitting b/l LE with less weeping, dried/thickened/crackled skin (prior reports of cellulitis to RLE), non-tender to palpation, pulses diminished with doppler, calves non-tender to palpation GI: +BS, +distended (less), +edema (less), non tender to palpation, +scrotal edema (less ) : soto with cloudy yellow/orange tinted urine draining Neuro/Psych: AOx3, cooperative, answers questions appropriately, no focal deficit. Knows in [facility], 2021 and December Results & Data Results & Data ([facility]) Vital Signs (Past 12 Hours) Vital Signs Temp Pulse Pulse Resp BP Pulse Ox 01/20/22 07:10 58 L 01/20/22 02:48 37.2 C 65 18 99/65 L 96 01/19/22 23:16 74 01/19/22 22:17 37.2 C 75 18 93/43 L 96 Laboratory Results 01/20/22 01/20/22 01/20/22 Range/Units 07:37 07:20 07:05 WBC 36.15 H* (4.8-10.8) K/uL RBC 3.49 L (4.7-6.1) M/uL Hgb 11.1 L (14.0-18.0) g/dL Hct 34.1 L (42-52) % MCV 97.7 (80-100) fL MCH 31.8 (25-34) pg MCHC 32.6 (32-36) g/dL RDW Std Deviation 58.5 H (36.4-46.3) fL RDW Coeff of Howie 16.4 H (11.5-14.5) % Plt Count 162 (130-400) K/uL MPV 11.6 H (7.4-10.4) fL Immature Gran % (Auto) 1.9 % Neut % (Auto) 87.5 % Lymph % (Auto) 4.8 % [place] % (Auto) 5.6 % Eos % (Auto) 0.0 % Baso % (Auto) 0.2 % Neut # (Auto) 31.63 H (1.4-6.5) K/uL Lymph # (Auto) 1.72 (1.2-3.4) K/uL [place] # (Auto) 2.03 H (0.11-0.59) K/uL Eos # (Auto) 0.00 (0-0.5) K/uL Baso # (Auto) 0.07 (0-0.2) K/uL Immature Gran # (Auto) 0.70 H (0.00-0.02) K/uL Sodium (136-145) mmol/L Potassium (3.5-5.1) mmol/L Chloride (98-107) mmol/L Carbon Dioxide (21-32) mmol/L Anion Gap (3-11) BUN (6-23) mg/dl Creatinine (0.6-1.4) mg/dl Est Cr Clr Drug Dosing ml/min Est GFR ( Amer) ml/min Est GFR (Non-Af Amer) ml/min BUN/Creatinine Ratio (10-20) Glucose (70-99(Fasting)) mg/dl Lactate 1.4 (0.4-2.0) mmol/L Calcium (8.5-10.1) mg/dl Phosphorus (2.5-4.9) mg/dl Magnesium (1.7-2.4) mg/dl C-Reactive Protein (0-0.5) mg/dl Albumin (3.4-5.0) gm/dl Procalcitonin 4.91 H (0-0.5) ng/ml Urine Color Urine Appearance (Clear) Urine pH (4.5-7.5) Ur Specific [place] (1.000-1.030) Urine Protein (Negative) Urine Glucose (UA) (Negative) Urine Ketones (Negative) Urine Blood (Negative) Urine Nitrite (Negative) Urine Bilirubin (Negative) Urine Urobilinogen (Negative) Ur Leukocyte Esterase (Negative) Urine WBC (Auto) (0-5) /hpf Urine RBC (Auto) (0-4) /hpf U Hyaline Cast (Auto) (0-5) /lpf U Epithel Cells (Auto) (0-5) /lpf Urine Bacteria (Auto) (Negative) 01/20/22 01/19/22 Range/Units 07:05 18:30 WBC (4.8-10.8) K/uL RBC (4.7-6.1) M/uL Hgb (14.0-18.0) g/dL Hct (42-52) % MCV (80-100) fL MCH (25-34) pg MCHC (32-36) g/dL RDW Std Deviation (36.4-46.3) fL RDW Coeff of Howie (11.5-14.5) % Plt Count (130-400) K/uL MPV (7.4-10.4) fL Immature Gran % (Auto) % Neut % (Auto) % Lymph % (Auto) % [place] % (Auto) % Eos % (Auto) % Baso % (Auto) % Neut # (Auto) (1.4-6.5) K/uL Lymph # (Auto) (1.2-3.4) K/uL [place] # (Auto) (0.11-0.59) K/uL Eos # (Auto) (0-0.5) K/uL Baso # (Auto) (0-0.2) K/uL Immature Gran # (Auto) (0.00-0.02) K/uL Sodium 134 L (136-145) mmol/L Potassium 3.2 L (3.5-5.1) mmol/L Chloride 88 L (98-107) mmol/L Carbon Dioxide 38 H (21-32) mmol/L Anion Gap 8 (3-11) BUN 63 H (6-23) mg/dl Creatinine 1.52 H (0.6-1.4) mg/dl Est Cr Clr Drug Dosing 62.2 ml/min Est GFR ( Amer) 55.3 ml/min Est GFR (Non-Af Amer) 47.7 ml/min BUN/Creatinine Ratio 41.4 H (10-20) Glucose 169 H (70-99(Fasting)) mg/dl Lactate (0.4-2.0) mmol/L Calcium 9.4 (8.5-10.1) mg/dl Phosphorus 3.2 (2.5-4.9) mg/dl Magnesium 1.9 (1.7-2.4) mg/dl C-Reactive Protein 5.57 H (0-0.5) mg/dl Albumin 3.3 L (3.4-5.0) gm/dl Procalcitonin (0-0.5) ng/ml Urine Color [place] Urine Appearance Clear (Clear) Urine pH >= 9.0 H (4.5-7.5) Ur Specific [place] 1.012 (1.000-1.030) Urine Protein Negative (Negative) Urine Glucose (UA) Negative (Negative) Urine Ketones Negative (Negative) Urine Blood 3+ H (Negative) Urine Nitrite Negative (Negative) Urine Bilirubin Negative (Negative) Urine Urobilinogen Negative (Negative) Ur Leukocyte Esterase 2+ H (Negative) Urine WBC (Auto) 10-30 H (0-5) /hpf Urine RBC (Auto) >30 H (0-4) /hpf U Hyaline Cast (Auto) 1-5 (0-5) /lpf U Epithel Cells (Auto) 0-5 (0-5) /lpf Urine Bacteria (Auto) 3+ H (Negative) Diagnostic Findings Chest X-Ray 01/20/22 08:10 XR chest 1V portable CLINICAL HISTORY: f/u, fever, +COVID COMPARISON STUDY: Chest CT January 10, 2022. Chest radiograph January 14, 2022. FINDINGS: Cardiomegaly is unchanged. There is no evidence for pulmonary edema. No consolidation is identified. There is no pneumothorax or pleural effusion. The appearance of the chest is unchanged. IMPRESSION: No acute cardiopulmonary findings. Cardiomegaly. ACT 112: Negative or not required by law. Electronically signed by: Vikram Angel M.D. 01/20/2022 8:23 AM PG Care Time/CCT Total # of Minutes Spent Total Time Spent with Patient: Total time spent is greater than 50% in coordination of care (as documented) at patient's floor/unit and/or counseling patient: Coding Level of Care Code 76208 Subseq Hosp Care Lvl 3 Diagnoses Anasarca R60.1 Hypothyroidism E03.9 COVID-19 U07.1 CKD (chronic kidney disease) N18.9 Lymphedema I89.0 CML (chronic myelocytic leukemia) C92.10 Hypertension I10 Atrial flutter I48.92 Bacteremia R78.81
[2022-01-20] MEDS: cefTRIAXone SODIUM 2,000 MG in DEXTROSE 5% 50 ML IV SCH (08:13)
[2022-01-20 08:25] LABS: Potassium 3.2 mmol/L (3.5-5.1)
--- NOTE | 2022-01-20 08:25 | XRay Report ---
XR chest 1V portable CLINICAL HISTORY: f/u, fever, +COVID COMPARISON STUDY: Chest CT January 10, 2022. Chest radiograph January 14, 2022. FINDINGS: Cardiomegaly is unchanged. There is no evidence for pulmonary edema. No consolidation is id entified. There is no pneumothorax or pleural effusion. The appearance of the chest is unchanged. IMPRESSION: No acute cardiopulmonary findings. Cardiomegaly. ACT 112: Negative or not required by law. Electronically signed by: Vikram Angel M.D. 01/20/2022 8:23 AM
[2022-01-20 08:26] LABS: Albumin Level 3.3 gm/dl (3.4-5.0); BUN Creatinine Ratio 41.4 (10-20); C Reactive Protein 5.57 mg/dl (0-0.5); Calcium 9.4 mg/dl (8.5-10.1); Creatinine Clr Calc Pharmacy 62.2 ml/min; Est GFR (African American) 55.3 ml/min; Est GFR (Non-African American) 47.7 ml/min; Magnesium 1.9 mg/dl (1.7-2.4); Phosphorus 3.2 mg/dl (2.5-4.9)
[2022-01-20 08:52] LABS: Basophils # (auto) 0.07 K/uL (0-0.2); Basophils % (auto) 0.2 %; Immature Granulocytes % (auto) 1.9 %; Lymphocytes # (auto) 1.72 K/uL (1.2-3.4); Lymphocytes % (auto) 4.8 %; Monocytes # (auto) 2.03 K/uL (0.11-0.59); Monocytes % (auto) 5.6 %; Neutrophils # (auto) 31.63 K/uL (1.4-6.5); Neutrophils % (auto) 87.5 %
[2022-01-20] MEDS: POTASSIUM CHLORIDE CRTAB 20 MEQ TABCR PO SCH ×2 (09:06→11:27)
[2022-01-20] MEDS: CHOLECALCIFEROL 5,000 UNITS 125 MCG TAB PO SCH (09:08)
[2022-01-20] MEDS: FAMOTIDINE 20 MG TAB PO SCH ×2 (09:09→20:34)
[2022-01-20] MEDS: MAGNESIUM OXIDE 400 MG TAB PO SCH (09:09)
[2022-01-20] MEDS: POLYETHYLENE (MIRALAX) 17 GM PACK PO SCH (09:10)
[2022-01-20] MEDS: METOPROLOL SUCC 50MG EXT REL TAB PO SCH ×2 (09:10→20:33)
[2022-01-20] MEDS: EUCERIN CR 120 GM JAR EXT SCH ×2 (09:11→20:33)
[2022-01-20] MEDS: dexAMETHasone 4 MG TAB PO SCH (09:12)
[2022-01-20] MEDS: DOCUSATE SODIUM/SENNA 50/8.6MG TAB PO SCH (09:13)
[2022-01-20] MEDS ORDERED: SODIUM CHLORIDE 0.9% 1000ML 250 ML IV ONE (09:41)
[2022-01-20] MEDS: ENOXAPARIN INJ 40 MG/0.4 ML SYR SQ SCH (11:25)
--- NOTE | 2022-01-20 12:37 | Nephrology Progress Note ---
Date of Service January 20, 2022 Assessment & Plan (1) Anasarca: Plan: Diuretics held. BP low and noted overnight development of sepsis. Multifactorial with notable LE lymphedema complicated by hypoalbuminemia, CKD, obesity, suspected component of right sided CHF/pulmonary hypertension, and hypothyroidism. Dietary sodium and fluid restriction. (2) Chronic kidney disease, stage 3a: Plan: CKD IIIA with a baseline creatinine of 1.2-1.5 mg/dL. Scheduled to see Dr. Giraldo in [place] as an outpatient. Vela removal for voiding trial. Close outpatient follow up. Medications appropriately dosed for kidney dysfunction. (3) COVID-19: Plan: Day 7/ of Decadron. (4) Hypertension: Plan: BP acceptable. Volume status improving. (5) Lymphedema: Plan: Feet elevation. Close outpatient follow up with oncology. Admission and Anticipated Discharge Date Admission Date: January 10, 2022 Subjective Mental status changes noted overnight. Tmax 38.1. WBC 36+. Urine and blood cultures + GN rods. Patient was discussed with Dr. Roman and Cynthia Butler PA-C this AM. Review of Systems Review of Systems: All systems reviewed & are unremarkable except as noted in HPI & below Physical Exam Constitutional: well developed and + obese; no acute distress Eyes: no scleral abnormality and no corneal abnormality ENMT: Mouth: no oral mucosal abnormality and oral mucous membranes not dry Neck: normal visual inspection and trachea midline Respiratory: normal respiratory effort Auscultation: lungs clear to auscultation bilaterally Cardiovascular: Rate/Rhythm: regular rate Heart Sounds: normal S1 and normal S2 Extremities: + edema and + varicosities Musculoskeletal: Extremities: no cyanosis and no clubbing Skin: normal turgor, + induration and + skin hypertrophy Neurologic: Motor/Sensory: no tremor and no asterixis Psychiatric: Orientation: alert and oriented x 3 Results & Data ([facility]) Vital Signs (Past 12 Hours) Vital Signs Temp Pulse Pulse Resp BP Pulse Ox 01/20/22 08:03 37.0 C 56 L 18 112/49 L 96 01/20/22 07:10 58 L 01/20/22 02:48 37.2 C 65 18 99/65 L 96 Laboratory Results Laboratory Results - last 24 hr 01/19/22 01/20/22 01/20/22 18:30 07:05 07:05 WBC 36.15 H* RBC 3.49 L Hgb 11.1 L Hct 34.1 L MCV 97.7 MCH 31.8 MCHC 32.6 RDW Std Deviation 58.5 H RDW Coeff of Howie 16.4 H Plt Count 162 MPV 11.6 H Immature Gran % (Auto) 1.9 Neut % (Auto) 87.5 Lymph % (Auto) 4.8 [place] % (Auto) 5.6 Eos % (Auto) 0.0 Baso % (Auto) 0.2 Neut # (Auto) 31.63 H Lymph # (Auto) 1.72 [place] # (Auto) 2.03 H Eos # (Auto) 0.00 Baso # (Auto) 0.07 Immature Gran # (Auto) 0.70 H Sodium 134 L Potassium 3.2 L Chloride 88 L Carbon Dioxide 38 H Anion Gap 8 BUN 63 H Creatinine 1.52 H Est Cr Clr Drug Dosing 62.2 Est GFR ( Amer) 55.3 Est GFR (Non-Af Amer) 47.7 BUN/Creatinine Ratio 41.4 H Glucose 169 H Lactate Calcium 9.4 Phosphorus 3.2 Magnesium 1.9 C-Reactive Protein 5.57 H Albumin 3.3 L Procalcitonin Urine Color [place] Urine Appearance Clear Urine pH >= 9.0 H Ur Specific [place] 1.012 Urine Protein Negative Urine Glucose (UA) Negative Urine Ketones Negative Urine Blood 3+ H Urine Nitrite Negative Urine Bilirubin Negative Urine Urobilinogen Negative Ur Leukocyte Esterase 2+ H Urine WBC (Auto) 10-30 H Urine RBC (Auto) >30 H U Hyaline Cast (Auto) 1-5 U Epithel Cells (Auto) 0-5 Urine Bacteria (Auto) 3+ H 01/20/22 01/20/22 07:20 07:37 WBC RBC Hgb Hct MCV MCH MCHC RDW Std Deviation RDW Coeff of Howie Plt Count MPV Immature Gran % (Auto) Neut % (Auto) Lymph % (Auto) [place] % (Auto) Eos % (Auto) Baso % (Auto) Neut # (Auto) Lymph # (Auto) [place] # (Auto) Eos # (Auto) Baso # (Auto) Immature Gran # (Auto) Sodium Potassium Chloride Carbon Dioxide Anion Gap BUN Creatinine Est Cr Clr Drug Dosing Est GFR ( Amer) Est GFR (Non-Af Amer) BUN/Creatinine Ratio Glucose Lactate 1.4 Calcium Phosphorus Magnesium C-Reactive Protein Albumin Procalcitonin 4.91 H Urine Color Urine Appearance Urine pH Ur Specific [place] Urine Protein Urine Glucose (UA) Urine Ketones Urine Blood Urine Nitrite Urine Bilirubin Urine Urobilinogen Ur Leukocyte Esterase Urine WBC (Auto) Urine RBC (Auto) U Hyaline Cast (Auto) U Epithel Cells (Auto) Urine Bacteria (Auto) PG Care Time/CCT Total # of Minutes Spent Total Time Spent with Patient: Total time spent is greater than 50% in coordination of care (as documented) at patient's floor/unit and/or counseling patient: Coding Level of Care Code 50380 Subseq Hosp Care Lvl 3 Diagnoses Anasarca R60.1 Chronic kidney disease, stage 3a N18.31 COVID-19 U07.1 Hypertension I10 Lymphedema I89.0
[2022-01-21] MEDS: ENOXAPARIN INJ 40 MG/0.4 ML SYR SQ SCH ×3 (00:18→22:09)
[2022-01-21] MEDS: LEVOTHYROXINE SODIUM 112 MCG TABLET PO SCH (06:23)
[2022-01-21] MEDS: DOCUSATE SODIUM/SENNA 50/8.6MG TAB PO SCH (08:36)
[2022-01-21] MEDS: POLYETHYLENE (MIRALAX) 17 GM PACK PO SCH (08:36)
[2022-01-21] MEDS: FAMOTIDINE 20 MG TAB PO SCH ×2 (08:37→22:11)
[2022-01-21] MEDS: METOPROLOL SUCC 50MG EXT REL TAB PO SCH ×2 (08:37→22:13)
[2022-01-21] MEDS: EUCERIN CR 120 GM JAR EXT SCH ×2 (08:38→22:14)
[2022-01-21] MEDS: MAGNESIUM OXIDE 400 MG TAB PO SCH (08:38)
[2022-01-21] MEDS: CHOLECALCIFEROL 5,000 UNITS 125 MCG TAB PO SCH (08:38)
[2022-01-21] MEDS: dexAMETHasone 4 MG TAB PO SCH (08:38)
[2022-01-21] MEDS: cefTRIAXone SODIUM 2,000 MG in DEXTROSE 5% 50 ML IV SCH (08:39)
[2022-01-21 10:27] LABS: Albumin Level 3.3 gm/dl (3.4-5.0); BUN Creatinine Ratio 44.7 (10-20); Creatinine Clr Calc Pharmacy 71.6 ml/min; Est GFR (African American) 65.6 ml/min; Est GFR (Non-African American) 56.6 ml/min; Phosphorus 3.2 mg/dl (2.5-4.9); Potassium 3.3 mmol/L (3.5-5.1)
--- NOTE | 2022-01-21 12:27 | XCELERA ---
[id number]
--- NOTE | 2022-01-21 12:30 | Nephrology Progress Note ---
Date of Service January 21, 2022 Assessment & Plan (1) Anasarca: Plan: Diuretics held. BP acceptable. Remains in slightly negative fluid balance. Kidney function stable. Multifactorial with notable LE lymphedema complicated by hypoalbuminemia, CKD, obesity, suspected component of right sided CHF/pulmonary hypertension, and hypothyroidism. Dietary sodium and fluid restriction. (2) Chronic kidney disease, stage 3a: Plan: CKD IIIA with a baseline creatinine of 1.2-1.5 mg/dL. Scheduled to see Dr. Giraldo in [place] as an outpatient. Vela removal for voiding trial. Close outpatient follow up. Medications appropriately dosed for kidney dysfunction. (3) COVID-19: Plan: Remains on Decadron. (4) Hypertension: Plan: BP acceptable. Volume status improving. (5) Lymphedema: Plan: Feet elevation. Close outpatient follow up with oncology. Plan: Urine growing E coli and blood + Serratia. Admission and Anticipated Discharge Date Admission Date: January 10, 2022 Subjective No acute events overnight. Overall, Rodríguez feels well. No fevers or chills. Edema continues to improve. Review of Systems Review of Systems: All systems reviewed & are unremarkable except as noted in HPI & below Physical Exam Constitutional: well developed and + obese; no acute distress Eyes: no scleral abnormality and no corneal abnormality ENMT: Mouth: no oral mucosal abnormality and oral mucous membranes not dry Neck: normal visual inspection and trachea midline Respiratory: normal respiratory effort Auscultation: lungs clear to auscultation bilaterally Cardiovascular: Rate/Rhythm: regular rate Heart Sounds: normal S1 and normal S2 Extremities: + edema and + varicosities Musculoskeletal: Extremities: no cyanosis and no clubbing Skin: normal turgor, + induration and + skin hypertrophy Neurologic: Motor/Sensory: no tremor and no asterixis Psychiatric: Orientation: alert and oriented x 3 Results & Data ([facility]) Vital Signs (Past 12 Hours) Vital Signs Temp Pulse Pulse Resp BP Pulse Ox 01/21/22 11:25 36.5 C 95 H 16 120/59 L 96 01/21/22 08:00 56 L 01/21/22 07:45 36.4 C L 64 18 120/57 L 95 01/21/22 04:43 36.5 C 60 16 117/50 L 96 Laboratory Results Laboratory Results - last 24 hr 01/21/22 09:30 Sodium 133 L Potassium 3.3 L Chloride 89 L Carbon Dioxide 36 H Anion Gap 8 BUN 59 H Creatinine 1.32 Est Cr Clr Drug Dosing 71.6 Est GFR ( Amer) 65.6 Est GFR (Non-Af Amer) 56.6 BUN/Creatinine Ratio 44.7 H Glucose 257 H Calcium 10.0 Phosphorus 3.2 Albumin 3.3 L PG Care Time/CCT Total # of Minutes Spent Total Time Spent with Patient: Total time spent is greater than 50% in coordination of care (as documented) at patient's floor/unit and/or counseling patient: Coding Level of Care Code 47017 Subseq Hosp Care Lvl 3 Diagnoses Anasarca R60.1 Chronic kidney disease, stage 3a N18.31 COVID-19 U07.1 Hypertension I10 Lymphedema I89.0
--- NOTE | 2022-01-21 15:32 | Hospitalist Progress Note ---
Date of Service January 21, 2022 Assessment & Plan (1) Bacteremia: Plan: 66 yo M Hx atrial flutter, HTN, hypothyroidism, CML, chronic lymphedema admitted for anasarca impeding patient's ability to walk and perform ADLs. Presented with anasarca/edema failing outpatient diuretics. Had been diuresing well, however soto insertion on admission reported to be traumatic. Urine was bloody and repeat cx had Klebsiella and Ecoli (pansensitive except Nitrofurantoin) however patient reportedly asymptomatic and soto exchanged and repeat UA without evidence of bacteria and patient continue to drain yellow urine, until becoming more concentrated 01/19 and then developed slight confusion thinking he was in [place], along with increased fatigue/exercise tolerance when getting to the bathroom (of note, also in room 214 with no windows and has been inpatient 10 days now, also possible he had some delirium) and decision to place on Cipro IV overnight given prior Urine cx in hopes of possible discharge today --> HOWEVER, blood cultures showing serratia marcescens and currently repeat BCx NGTD x 24 hrs - WBC 36.1k (also on decadron as mentioned) -- will recheck CBC in AM - Continue Rocephin 2 g IV daily - will need 14 days of total coverage; once repeat negative BCx at [address] US guided IV line to complete IV Abx at home - Holding Bumex for now - BP improved and will monitor for lows - Remains afebrile > 48 hours - Repeat echo without vegetation - no changes from previous; preserved EF, no wall motion abnormalities (2) Anasarca: Plan: * Presents with several months of worsening edema, with significant pitting edema to the level of the top of abdomen. * -- Reports worsening edema since July 2021 and reports weight of 250 lbs but reports progressive weight gain (60lb since July) * Last Echo 10/2021 without evidence of LV dysfunction but grade II pseudonormlization pattern diastolic dysfunction * Does admit to some dietary indiscretion with regard to salt intake -- EDUCATED TO LIMIT/AVOID IN DIET AT D/C * Also has a history of lymph node removal in the abdomen/pelvis causing some chronic lymphedema (36 lymph nodes removed) from when he had R hemicolectomy/removal of appendiceal cancer and has some level of chronic lymphedema * Follows with wound care outpatient and rec'd continued follow up. Has lymphedema pumps at home * --> Per their note, patient to have had arterial studies * --> done 12/20/21 --> no evidence for DVTs bilaterally, above knee * --> Rec for consider additional diuresis for elevated CVP and LT GSV/RT calf varieces ablation could be considered * Also with hx CML and follows with Dr Lima and to be starting Gleevec soon -- can reach out for discussion if needed Nephrology consulted -- may have to accept some level of azotemia * Placed on bumex gtt on admission, little response, increased dose to 1mg/hr added diuril for low UOP which subsequently increased and patient with good response * Plan to continue Bumex 2 mg BID and likely will resume this tomorrow * Currently at a negative 40 L; weight down to 255 * Continue low sodium diet, fluid restriction 1500ml/daily Aim net negative 1-2L/24 hours (3) Hypothyroidism: Plan: - On 100mcg daily TSH checked outpatient earlier this year, elevated to 4.56. Endorses compliance and w/ edema, constipation/fatigue, increased to 112mcg daily (TSH elevated to 6.38 this admit) and have PCP obtain repeat TFT next month during appointment (4) COVID-19: Plan: * Incidentally noted to be COVID-19 positive on admission testing, no cough/sob but over course of couple of days, low SpO2 to 90 but never truly hypoxic or requiring supplemental O2 * Decadron 6mg daily started 01/14 -- uptodate recommends only for when requiring supplemental O2 and given it could immunosuppress and lead to fluid retention. Will stop steroids at this time but has had about 8 days treatment anyways * Placed on pepcid BID for GI prophylaxis but will need to monitor given prior prior significant GI bleeding req hospitalization and >5 u PRBC and possible gastritis on imaging however denied any GI symptoms except fullness * Lovenox BID for DVT prophylaxis (5) CKD (chronic kidney disease): Plan: Acute on Chronic Kidney Disease, Hypokalemia: Nephrology on consult * History of, with baseline creatinine 1.3-1.5. Currently at baseline * Suspect in setting of microvascular disease and poor renal perfusion related to R heart failure * Changed PO K supplementation to 40mg TID (K 3.2 on AM labs, mag wnl1.9) - Likely to resume Bumex in AM - Also checked Vit D level, low 22, replacement ordered - BMP in AM and will need close f/u at d/c (6) Lymphedema: Plan: has lymphedema pumps at home added eucerin for cracked/hardened skin elevation rec f/u clinic at d/c --> updated and transferred to for more information on local availability as [facility] closed but should have some availability through [facility] --> Will provide rx at discharge (7) CML (chronic myelocytic leukemia): Plan: Chronic myelocytic leukemia, appendiceal cancer: * Diagnosed with CML in 2010; not currently on medical therapy but with intention to start Gleevec in the near future. * -- Of note - CT does show numerous mesenteric lymph nodes (likely reactive); shotty retroperitoneal lymph nodes as well * - Diagnosed with appendiceal cancer in 2011, s/p right hemicolectomy and significant pelvic lymph node removal which were negative for mets. * CBC without any belén abnormalities except for chronic anemia * CBC IN AM but hgb improved --> of note, WBC elevation was initial indication he had CML in past (stated had WBC 11-12k) * F/U with Dr Lima at id to start Gleevec (8) Hypertension: Plan: BP stable Continue home metoprolol 50mg BID Bumex as above on hold (9) Atrial flutter: Plan: * History of, on rate control therapy. Previously underwent ablation and is currently in sinus rhythm; no issues on telemetry * Continue metoprolol succinate 50mg PO BID. * Not on DOAC due to history of significant GI bleed requiring hospitalization and over 5 units of blood for stabilization Has been sinus 40-60bpm on telemetry Plan: Plan for home IV Abx which was discussed with patient/ and case management; Rx provided. If repeat BCx NGTD tomorrow can place US guided IV line and possible D/C tomorrow or Friday Admission and Anticipated Discharge Date Admission Date: January 10, 2022 Subjective No acute events overnight. Currently down a significant amount of weight and negative fluid balance. Cr is stable. He continues to do well from a respiratory standpoint and remains on RA. Has been removed from isolation precautions. Verbalizes no complaints today Review of Systems Review of Systems: All systems reviewed & are unremarkable except as noted in Subjective Physical Exam Physical Exam: PHYSICAL EXAM General Appearance: WDWN in NAD who is A&O x 3 HEENT: Head is normocephalic/atraumatic; Hearing grossly intact Neck: Supple; Trachea midline; Neg JVD Heart: RRR with murmur Lungs: CTA in all lung andres bilaterally; Respirations unlabored; Neg accessory muscle use Abdomen: Soft, non-tender; Positive BS x 4 quadrants Extremities: Neg cyanosis; Large edematous and scaly legs with thickened skin bilaterally with 4+ pitting edema; seems abdomen is no longer with edema Neurological: Speech clear; Gross motor/sensory function intact; Neg focal neurologic deficits Psychiatric: Appropriate mood/affect Skin: Normal Color; Warm/Dry Results & Data Results & Data ([facility]) Vital Signs (Past 12 Hours) Vital Signs Temp Pulse Pulse Resp BP Pulse Ox 01/21/22 11:25 36.5 C 95 H 16 120/59 L 96 01/21/22 08:00 56 L 01/21/22 07:45 36.4 C L 64 18 120/57 L 95 01/21/22 04:43 36.5 C 60 16 117/50 L 96 PG Care Time/CCT Total # of Minutes Spent Total Time Spent with Patient: Total time spent is greater than 50% in coordination of care (as documented) at patient's floor/unit and/or counseling patient: Coding Level of Care Code 13892 Subseq Hosp Care Lvl 3 Diagnoses Bacteremia R78.81 Anasarca R60.1 Hypothyroidism E03.9 COVID-19 U07.1 CKD (chronic kidney disease) N18.9 Lymphedema I89.0 CML (chronic myelocytic leukemia) C92.10 Hypertension I10 Atrial flutter I48.92
[2022-01-22] MEDS: LEVOTHYROXINE SODIUM 112 MCG TABLET PO SCH (05:58)
[2022-01-22 07:03] LABS: Hematocrit (blood only) 33.9 % (42-52); Hemoglobin 11.1 g/dL (14.0-18.0); Mean Corpuscular Hemoglobin 31.6 pg (25-34); Mean Corpuscular Hgb Conc 32.7 g/dL (32-36); Mean Corpuscular Volume 96.6 fL (80-100); Mean Platelet Volume 11.5 fL (7.4-10.4); Platelet Count 169 K/uL (130-400); RDW Coefficient of Variation 15.9 % (11.5-14.5); RDW Standard Deviation 55.6 fL (36.4-46.3); Red Blood Count 3.51 M/uL (4.7-6.1); White Blood Count 19.39 K/uL (4.8-10.8)
[2022-01-22 07:28] LABS: BUN Creatinine Ratio 46.4 (10-20); Calcium 10.2 mg/dl (8.5-10.1); Creatinine Clr Calc Pharmacy 83.9 ml/min; Potassium 3.5 mmol/L (3.5-5.1)
[2022-01-22] MEDS: EUCERIN CR 120 GM JAR EXT SCH (08:35)
[2022-01-22] MEDS: cefTRIAXone SODIUM 2,000 MG in DEXTROSE 5% 50 ML IV SCH (08:35)
[2022-01-22] MEDS: FAMOTIDINE 20 MG TAB PO SCH (08:36)
[2022-01-22] MEDS: METOPROLOL SUCC 50MG EXT REL TAB PO SCH (08:36)
[2022-01-22] MEDS: DOCUSATE SODIUM/SENNA 50/8.6MG TAB PO SCH (08:36)
[2022-01-22] MEDS: MAGNESIUM OXIDE 400 MG TAB PO SCH (08:36)
[2022-01-22] MEDS: CHOLECALCIFEROL 5,000 UNITS 125 MCG TAB PO SCH (08:36)
[2022-01-22] MEDS: POLYETHYLENE (MIRALAX) 17 GM PACK PO SCH (08:37)
--- NOTE | 2022-01-22 10:25 | Nephrology Progress Note ---
Date of Service January 22, 2022 Assessment & Plan (1) Anasarca: Plan: Diuretics held. BP acceptable. Remains in negative fluid balance. Kidney function stable. Multifactorial with notable LE lymphedema complicated by hypoalbuminemia, CKD, obesity, suspected component of right sided CHF/pulmonary hypertension, and hypothyroidism. Dietary sodium and fluid restriction. Close outpatient follow up encouraged. (2) Chronic kidney disease, stage 3a: Plan: CKD IIIA with a baseline creatinine of 1.2-1.5 mg/dL. Follow up with Dr. Giraldo in [place] as an outpatient. Close outpatient follow up. Medications appropriately dosed for kidney dysfunction. (3) COVID-19: Plan: Remains on Decadron. (4) Hypertension: Plan: BP acceptable. Volume status improving. (5) Lymphedema: Plan: Feet elevation. Close outpatient follow up with oncology. Admission and Anticipated Discharge Date Admission Date: January 10, 2022 Subjective No acute events overnight. Mr. Bashir feels well today. Remains in a notable negative fluid balance without diuretics. Kidney function stable. Weight down another 1+ kg in past 24 hours. No fevers or chills. Hopes to be discharged home today. Review of Systems Review of Systems: All systems reviewed & are unremarkable except as noted in HPI & below Physical Exam Constitutional: well developed and + obese; no acute distress Eyes: no scleral abnormality and no corneal abnormality ENMT: Mouth: no oral mucosal abnormality and oral mucous membranes not dry Neck: normal visual inspection and trachea midline Respiratory: normal respiratory effort Auscultation: lungs clear to auscultation bilaterally Cardiovascular: Rate/Rhythm: regular rate Heart Sounds: normal S1 and normal S2 Extremities: + edema and + varicosities Musculoskeletal: Extremities: no cyanosis and no clubbing Skin: normal turgor, + induration and + skin hypertrophy Neurologic: Motor/Sensory: no tremor and no asterixis Psychiatric: Orientation: alert and oriented x 3 Results & Data ([facility]) Vital Signs (Past 12 Hours) Vital Signs Temp Pulse Pulse Resp BP Pulse Ox 01/22/22 07:58 54 L 01/22/22 07:45 36.3 C L 52 L 20 118/60 01/22/22 03:29 36.9 C 54 L 20 129/66 97 01/21/22 22:35 36.8 C 60 20 134/71 98 Laboratory Results Laboratory Results - last 24 hr 01/21/22 01/22/22 01/22/22 09:30 06:46 06:46 WBC 19.39 H RBC 3.51 L Hgb 11.1 L Hct 33.9 L MCV 96.6 MCH 31.6 MCHC 32.7 RDW Std Deviation 55.6 H RDW Coeff of Howie 15.9 H Plt Count 169 MPV 11.5 H Sodium 133 L 133 L Potassium 3.3 L 3.5 Chloride 89 L 91 L Carbon Dioxide 36 H 35 H Anion Gap 8 7 BUN 59 H 52 H Creatinine 1.32 1.12 Est Cr Clr Drug Dosing 71.6 83.9 Est GFR ( Amer) 65.6 80.0 Est GFR (Non-Af Amer) 56.6 69.0 BUN/Creatinine Ratio 44.7 H 46.4 H Glucose 257 H 194 H Calcium 10.0 10.2 H Phosphorus 3.2 Albumin 3.3 L PG Care Time/CCT Total # of Minutes Spent Total Time Spent with Patient: Total time spent is greater than 50% in coordination of care (as documented) at patient's floor/unit and/or counseling patient: Coding Level of Care Code 86043 Subseq Hosp Care Lvl 3 Diagnoses Anasarca R60.1 Chronic kidney disease, stage 3a N18.31 COVID-19 U07.1 Hypertension I10 Lymphedema I89.0
[2022-01-22] MEDS: ENOXAPARIN INJ 40 MG/0.4 ML SYR SQ SCH (10:44)
--- NOTE | 2022-01-22 16:27 | Discharge Summary ---
Date of Service January 22, 2022 Admission HPI Per Admitting Provider 66 yo M Hx atrial flutter, HTN, hypothyroidism, CML, chronic lymphedema presented to the ER for worsening of lower extremity, scrotal, and abdominal wall edema despite Bumex therapy. Patient endorses worsening of edema since July. At that time he reports weighing around 250 lbs and was only on Lasix 20mg PO as needed for weight gain. He was placed on daily Lasix, but continued to have weight gain. Several weeks ago he was placed on Bumex to try to "get the fluid off", but despite that he has continued to have fluid retention and measured 311 lbs in the ER. He was scheduled to see Dr. Giraldo today given his history of CKD and diuretic use, however he had a difficult time getting into the car due to the weight of his legs, and instead came to the ER for evaluation. In the ER patient noted to have normal vital signs, Hgb 10.1, creatinine 1.54, BNP 641. CT Chest, Abdomen, Pelvis without evidence of PE or pulmonary edema. Imaging did note cirrhosis changes as well as a small volume of ascites. Today patient reports no chest pain, nausea, diarrhea, fevers, chills, URI symptoms. He does endorse some worsening dyspnea on exertion "due to all of the weight". He denies orthopnea. He reports that he tries to keep salty foods out of his diet, in that he does not add salt to foods. Some salt containing foods in his diet are as follows: for breakfast he will often have a [employer] breakfast sandwich. For lunch he will sometimes eat cold cut sandwiches. Last night he had pizza for dinner. Principal Diagnosis Anasarca; UTI/Bacteremia with Serratia Discharge Exam PHYSICAL EXAM General Appearance: WDWN in NAD who is A&O x 3 HEENT: Head is normocephalic/atraumatic; Hearing grossly intact Neck: Supple; Trachea midline; Neg JVD Heart: RRR with murmur Lungs: CTA in all lung andres bilaterally; Respirations unlabored; Neg accessory muscle use Abdomen: Soft, non-tender; Positive BS x 4 quadrants Extremities: Neg cyanosis; Large edematous and scaly legs with thickened skin bilaterally with 4+ pitting edema; seems abdomen is no longer with edema Neurological: Speech clear; Gross motor/sensory function intact; Neg focal neurologic deficits Psychiatric: Appropriate mood/affect Skin: Normal Color; Warm/Dry Discharge Data Allergies Allergy/AdvReac Type Severity Reaction Status Date / Time bee venom protein (honey bee) Allergy Severe DYSPNEA;SWE Verified 01/03/22 13:37 LLING Penicillins Allergy Unknown Verified 01/03/22 13:37 Consultations 01/10/22 18:28 ED Decision to Admit Stat 01/10/22 19:10 Consult Nephrology Routine Ordered Studies Abdomen/Pelvis CT 01/10/22 17:04 CT ANGIOGRAM OF THE CHEST; CT SCAN OF THE ABDOMEN AND PELVIS WITH IV CONTRAST CLINICAL HISTORY: Dyspnea. Weight gain. Lower extremity edema. COMPARISON STUDY: CT scan of the chest, abdomen, and pelvis dated 11/29/2015. TECHNIQUE: Following the IV administration of 117 of Optiray 320, CT angiogram of the chest is performed from the upper abdomen to the thoracic inlet utilizing the pulmonary embolus protocol. Images are reviewed in the axial, sagittal, coronal planes. 3-D MIPS images are created and assessed. Subsequently, CT scan of the abdomen and pelvis was performed from the lung bases to the proximal femora. Images are reviewed in the axial, sagittal, and coronal planes. IV contrast was administered without complication. A dose lowering technique was utilized adhering to the principles of ALARA. CT DOSE: 2505.63 mGy.cm FINDINGS: CHEST: Thyroid: Mildly enlarged and heterogeneous. Thoracic aorta: There is atherosclerotic calcification of the thoracic aorta, which is normal in caliber and demonstrates standard 3-vessel arch anatomy. No dissection is seen. Pulmonary vasculature: The pulmonary trunk is normal in caliber. There are no filling defects identified in the main, lobar, or segmental pulmonary arteries to indicate pulmonary embolus. Heart: The heart is enlarged and without pericardial effusion. There are scattered coronary artery calcifications. Lungs and pleural spaces: There is no airspace consolidation or pleural effusion. Scarring/atelectasis is noted at the lung bases. The trachea and central airways are clear. Mediastinum: There are numerous subcentimeter mediastinal lymph nodes which are not pathologically enlarged by size criteria. Vivian: Clear. Axillae: There is no axillary lymphadenopathy. Bony thorax: The skeletal structures are osteopenic. Spondylotic change is seen throughout the thoracic spine. No lytic or blastic lesions are identified. Soft tissues: There is anasarca of the body wall. Gynecomastia is noted. ABDOMEN AND PELVIS: Liver: The contrast-enhanced liver is mildly enlarged and demonstrates heterogeneously diminished attenuation consistent with steatosis. Nodularity of the surface contour indicates early change of cirrhosis. There is no intrahepatic or ductal dilatation. The hepatic veins and portal veins are patent. Gallbladder: Mild gallbladder wall thickening is nonspecific and likely related to cirrhosis and ascites. Spleen: The spleen is enlarged measuring 13.7 cm in length. A calcified granuloma is noted in the spleen. Pancreas: Moderately atrophic and grossly unremarkable. Adrenal glands: Unremarkable. Kidneys: The contrast enhanced kidneys demonstrate mild cortical atrophy and are without hydronephrosis. The kidneys enhance symmetrically. Abdominal vasculature: The abdominal aorta is normal in course and caliber noting moderate to advanced atherosclerotic calcification. Stomach and bowel: The gastric mucosa appears mildly thickened and hyperemic. There is postoperative change from right hemicolectomy with ileocolic anastomosis. No bowel obstruction is seen. The appendix is surgically absent Peritoneum: There is a small volume of abdominopelvic ascites. No intraperitoneal free air is seen. There are mesenteric venous collaterals. A midline surgical scar is noted. Lymphadenopathy: There are numerous prominent mesenteric lymph nodes, likely on a reactive basis. There are shotty retroperitoneal lymph nodes. Pelvic viscera: Evaluation of the pelvis is significantly degraded by streak artifact from bilateral hip arthroplasties. The prostate gland is not well- visualized due to streak artifact. The bladder is distended, the wall appears thickened/trabeculated indicating chronic outlet obstruction. Skeletal structures: The skeletal structures are osteopenic. There is mild to moderate lumbosacral spondylosis. No lytic or blastic lesions are seen. Bilateral hip arthroplasties are in place. Soft tissues: There is anasarca of the body wall. IMPRESSION: 1. There is no evidence of pulmonary embolus in the main, lobar, or segmental pulmonary arteries. 2. There is no airspace consolidation or pleural effusion. 3. Cardiomegaly. 4. There is anasarca of the body wall. 5. The liver is enlarged, steatotic, and shows morphologic changes of cirrhosis. 6. Splenomegaly. 7. Small volume of abdominopelvic ascites. 8. Question gastritis. Clinical correlation will be required. 9. Additional findings as above. ACT 112: Negative or not required by law. Electronically signed by: Xiang Pedraza M.D. 01/10/2022 6:04 PM Chest CTA 02/17/22 17:04 CT ANGIOGRAM OF THE CHEST; CT SCAN OF THE ABDOMEN AND PELVIS WITH IV CONTRAST CLINICAL HISTORY: Dyspnea. Weight gain. Lower extremity edema. COMPARISON STUDY: CT scan of the chest, abdomen, and pelvis dated 11/29/2015. TECHNIQUE: Following the IV administration of 117 of Optiray 320, CT angiogram of the chest is performed from the upper abdomen to the thoracic inlet utilizing the pulmonary embolus protocol. Images are reviewed in the axial, sagittal, coronal planes. 3-D MIPS images are created and assessed. Subsequently, CT scan of the abdomen and pelvis was performed from the lung bases to the proximal femora. Images are reviewed in the axial, sagittal, and coronal planes. IV contrast was administered without complication. A dose lowering technique was utilized adhering to the principles of ALARA. CT DOSE: 2505.63 mGy.cm FINDINGS: CHEST: Thyroid: Mildly enlarged and heterogeneous. Thoracic aorta: There is atherosclerotic calcification of the thoracic aorta, which is normal in caliber and demonstrates standard 3-vessel arch anatomy. No dissection is seen. Pulmonary vasculature: The pulmonary trunk is normal in caliber. There are no filling defects identified in the main, lobar, or segmental pulmonary arteries to indicate pulmonary embolus. Heart: The heart is enlarged and without pericardial effusion. There are scattered coronary artery calcifications. Lungs and pleural spaces: There is no airspace consolidation or pleural effusion. Scarring/atelectasis is noted at the lung bases. The trachea and central airways are clear. Mediastinum: There are numerous subcentimeter mediastinal lymph nodes which are not pathologically enlarged by size criteria. Vivian: Clear. Axillae: There is no axillary lymphadenopathy. Bony thorax: The skeletal structures are osteopenic. Spondylotic change is seen throughout the thoracic spine. No lytic or blastic lesions are identified. Soft tissues: There is anasarca of the body wall. Gynecomastia is noted. ABDOMEN AND PELVIS: Liver: The contrast-enhanced liver is mildly enlarged and demonstrates heterogeneously diminished attenuation consistent with steatosis. Nodularity of the surface contour indicates early change of cirrhosis. There is no intrahepatic or ductal dilatation. The hepatic veins and portal veins are patent. Gallbladder: Mild gallbladder wall thickening is nonspecific and likely related to cirrhosis and ascites. Spleen: The spleen is enlarged measuring 13.7 cm in length. A calcified granuloma is noted in the spleen. Pancreas: Moderately atrophic and grossly unremarkable. Adrenal glands: Unremarkable. Kidneys: The contrast enhanced kidneys demonstrate mild cortical atrophy and are without hydronephrosis. The kidneys enhance symmetrically. Abdominal vasculature: The abdominal aorta is normal in course and caliber noting moderate to advanced atherosclerotic calcification. Stomach and bowel: The gastric mucosa appears mildly thickened and hyperemic. There is postoperative change from right hemicolectomy with ileocolic anastomosis. No bowel obstruction is seen. The appendix is surgically absent Peritoneum: There is a small volume of abdominopelvic ascites. No intraperitoneal free air is seen. There are mesenteric venous collaterals. A midline surgical scar is noted. Lymphadenopathy: There are numerous prominent mesenteric lymph nodes, likely on a reactive basis. There are shotty retroperitoneal lymph nodes. Pelvic viscera: Evaluation of the pelvis is significantly degraded by streak artifact from bilateral hip arthroplasties. The prostate gland is not well- visualized due to streak artifact. The bladder is distended, the wall appears thickened/trabeculated indicating chronic outlet obstruction. Skeletal structures: The skeletal structures are osteopenic. There is mild to moderate lumbosacral spondylosis. No lytic or blastic lesions are seen. Bilateral hip arthroplasties are in place. Soft tissues: There is anasarca of the body wall. IMPRESSION: 1. There is no evidence of pulmonary embolus in the main, lobar, or segmental pulmonary arteries. 2. There is no airspace consolidation or pleural effusion. 3. Cardiomegaly. 4. There is anasarca of the body wall. 5. The liver is enlarged, steatotic, and shows morphologic changes of cirrhosis. 6. Splenomegaly. 7. Small volume of abdominopelvic ascites. 8. Question gastritis. Clinical correlation will be required. 9. Additional findings as above. ACT 112: Negative or not required by law. Electronically signed by: Xiang Pedraza M.D. 01/10/2022 6:04 PM Chest X-Ray 01/14/22 07:41 SINGLE VIEW CHEST CLINICAL HISTORY: Hypoxia FINDINGS: An AP, portable, upright chest radiograph is compared to study dated 01/03/2022 and correlated with chest CT dated 01/10/2022. The heart is enlarged. The pulmonary vasculature is noncongested. Atelectasis is noted at the lung bases. No airspace consolidation or large pleural effusion is identified. No pneumothorax is seen. The skeletal structures are osteopenic. The bony thorax is grossly intact. IMPRESSION: Cardiomegaly with no acute cardiopulmonary abnormality. ACT 112: Negative or not required by law. Electronically signed by: Xiang Pedraza M.D. 01/14/2022 9:53 AM Chest X-Ray 01/20/22 08:10 XR chest 1V portable CLINICAL HISTORY: f/u, fever, +COVID COMPARISON STUDY: Chest CT January 10, 2022. Chest radiograph January 14, 2022. FINDINGS: Cardiomegaly is unchanged. There is no evidence for pulmonary edema. No consolidation is identified. There is no pneumothorax or pleural effusion. The appearance of the chest is unchanged. IMPRESSION: No acute cardiopulmonary findings. Cardiomegaly. ACT 112: Negative or not required by law. Electronically signed by: Vikram Angel M.D. 01/20/2022 8:23 AM Hospital Course (1) Bacteremia: 66 yo M Hx atrial flutter, HTN, hypothyroidism, CML, chronic lymphedema admitted for anasarca impeding patient's ability to walk and perform ADLs. Presented with anasarca/edema failing outpatient diuretics. Had been diuresing well, however soto insertion on admission reported to be traumatic. Urine was bloody and repeat cx had Klebsiella and Ecoli (pansensitive except Nitrofurantoin) however patient reportedly asymptomatic and soto exchanged and repeat UA without evidence of bacteria and patient continue to drain yellow urine, until becoming more concentrated 01/19 and then developed slight confusion thinking he was in [place], along with increased fatigue/exercise tolerance when getting to the bathroom (of note, also in room 214 with no windows and has been inpatient x 10 days at that point, also possible he had some delirium). --> HOWEVER, blood cultures showing serratia marcescens and currently repeat BCx NGTD x 48 hrs - WBC 36.1k (also on decadron as mentioned) -- now trending down to 19 and has been afebrile for multiple days - Continue Rocephin 2 g IV daily - will need 14 days of total coverage and will complete on February 02 -- Given this is a gram neg organism it is less likely to seed on valves/etc. As well could have likely converted to oral options given the gram negative organism. However will continue this, should any issues arise with IV option could likely finish course with a Flouroquinolone given the same bioavailability between po/IV options - Repeat echo (TTE) without vegetation - no changes from previous; preserved EF, no wall motion abnormalities (2) Anasarca: * Presents with several months of worsening edema, with significant pitting edema to the level of the top of abdomen. * -- Reports worsening edema since July 2021 and reports weight of 250 lbs but reports progressive weight gain (60lb since July) * Last Echo 10/2021 without evidence of LV dysfunction but grade II pseudonormlization pattern diastolic dysfunction * Does admit to some dietary indiscretion with regard to salt intake -- EDUCATED TO LIMIT/AVOID IN DIET AT D/C * Also has a history of lymph node removal in the abdomen/pelvis causing some chronic lymphedema (36 lymph nodes removed) from when he had R hemicolectomy/removal of appendiceal cancer and has some level of chronic lymphedema * Follows with wound care outpatient and rec'd continued follow up. Has lymphedema pumps at home * --> Per their note, patient to have had arterial studies * --> done 12/20/21 --> no evidence for DVTs bilaterally, above knee * --> Rec for consider additional diuresis for elevated CVP and LT GSV/RT calf varieces ablation could be considered * Also with hx CML and follows with Dr Lima and to be starting Gleevec soon -- can reach out for discussion if needed Nephrology consulted -- may have to accept some level of azotemia * Placed on bumex gtt on admission, little response, increased dose to 1mg/hr added diuril for low UOP which subsequently increased and patient with good response * Plan to continue Bumex 2 mg BID without outpatient labs and F/U with nephrology * Currently at a negative 43 L; weight down to around 250 (lost approx 60 lbs of fluid) * Continue low sodium diet, fluid restriction 1500ml/daily (3) Hypothyroidism: - On 100mcg daily TSH checked outpatient earlier this year, elevated to 4.56. Endorses compliance and w/ edema, constipation/fatigue, increased to 112mcg daily (TSH elevated to 6.38 this admit) and have PCP obtain repeat TFT next month during appointment (4) COVID-19: * Incidentally noted to be COVID-19 positive on admission testing, no cough/sob but over course of couple of days, low SpO2 to 90 but never truly hypoxic or requiring supplemental O2 * Decadron 6mg daily started 01/14 -- uptodate recommends only for when requiring supplemental O2 (has not required it) and given it could immunosuppress and lead to fluid retention. Will stop steroids at this time but has had about 8 days treatment anyways -- suspect this is contributing to the elevated WBC count * Placed on pepcid BID for GI prophylaxis but will need to monitor given prior prior significant GI bleeding req hospitalization and >5 u PRBC and possible gastritis on imaging however denied any GI symptoms except fullness (5) CKD (chronic kidney disease): Acute on Chronic Kidney Disease, Hypokalemia: Nephrology on consult * History of, with baseline creatinine 1.3-1.5. Currently at 1.12 * Suspect in setting of microvascular disease and poor renal perfusion related to R heart failure - Also checked Vit D level, low 22, replacement ordered (6) Lymphedema: has lymphedema pumps at home added eucerin for cracked/hardened skin elevation rec f/u clinic at d/c --> updated and transferred to for more informati on on local availability as [place] [facility] closed but should have some availability through [facility] --> As he will have home health due to the IV antibiotics I was instructed he cannot have [facility] right now. 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 * -- Of note - CT does show numerous mesenteric lymph nodes (likely reactive); shotty retroperitoneal lymph nodes as well * - Diagnosed with appendiceal cancer in 2011, s/p right hemicolectomy and s ignificant pelvic lymph node removal which were negative for mets. * CBC without any belén abnormalities except for chronic anemia * CBC IN AM but hgb improved --> of note, WBC elevation was initial indication he had CML in past (stated had WBC 11-12k) * F/U with Dr Lima at pr to start Gleevec (8) Hypertension: BP stable Continue home metoprolol 50mg BID Bumex as above (9) Atrial flutter: * History of, on rate control therapy. Previously underwent ablation and is currently in sinus rhythm; no issues on telemetry * Continue metoprolol succinate 50mg PO BID. * Not on DOAC due to history of significant GI bleed requiring hospitalization and over 5 units of blood for stabilization Has been sinus 40-60bpm on telemetry Plan for home IV Abx which was discussed with patient/ and case management; Rx provided. Recommend outpatient labs with results to Dr. Giraldo and PCP F/U with Dr. Giraldo Will need Rx for lymphedema treatment with [facility] when off home services for IV infusions Home Health Attestation I certify that this patient is under my care and that I, or a physicians assistant professor of forestry working with me, had a face to-face encounter that meets the home health [id number] encounter requirements with this patient. The encounter with the patient was in whole, or in part, for the following medical condition, which is the primary reason for home health care (list medical condition): +Cultures. I certify that, based on my findings, the following services are medically necessary home health services: My clinical findings support the need for the above services because: Skilled Nsg Assessment Further, I certify that my clinical findings support that this patient is homebound (i.e. absences from home require considerable and taxing effort and are for medical reasons or sikh services or infrequently or of short duration when for other reasons) because: Certification for Home Health Services: Based on the above findings, I certify that this patient is confined to the home and needs intermittent custodial care, physical therapy and/or speech therapy or continues to need occupational therapy. The patient is under my care, and I have initiated the establishment of the plan of care. This patient will be followed by a physician who will periodically review the plan of care. Total Time Total Time Spent Total Time Spent (In Minutes): Spent greater than 30 minutes preparing patient for discharge. This includes discussion with patient/family, assessment, intervention, medication reconciliation, and coordination of care. Discharge Plan Discharge Items Patient Disposition: Home - Home Health Services Reason For Visit: ANASARCA, CKD Discharge Diagnosis: Anasarca (generalized edema), Volume Overload Goals: You have been hospitalized for an acute medical problem. During your stay at [facility], we have made an effort to correct the problem that brought you to the hospital while keeping you as comfortable as possible. Medications were used to bring your condition under control and your discharge instructions will include directions for any medications you should take after leaving the hospital. Please make sure you see your Primary Care Provider as part of your follow up plan. Activity: Resume your previous activity Activity Comment: advance mobility with walker for stability Non-emergency contact: Primary Care Provider, Specialist and Clinical Rehab Specialist Call non-emergency contact if: you have any medication questions, your symptoms worsen, your pain is concerning for you and you have a fever Follow-up/Referrals: Israel Melton MD [Primary Care Provider] - Susan Giraldo MD [Physician] - (Please call to arrange follow-up appointment in 1-2 weeks) Eddi Cao MD [Physician] - Juliette Lima MD [Physician] - Diet: Heart Healthy and Low Sodium (2gm) Fluids: 1500ml (6 cups) Ambulatory Orders: Basic Metabolic Panel (Routine) Timeframe: 1 Week Location: Determined by Patient Ordered By: Jennifer Mayer Attending Provider Instructions: You have been hospitalized for progressive weight gain and swelling that failed outpatient treatment. Nephrology was consulted and you were placed on a Bumex drip in IV along with other medications and eventually increased doses of metolazone to encourage a positive fluid balance. You were eventually decreased to Bumex 2 mg by mouth TWICE daily at discharge. Start this on January 23. You should continue to limit your oral intake to 1500mL per day to prevent worsening volume overload and stick to a LOW SALT diet. You should also be weighing yourself daily to monitor for weight gain and call your primary care if weight increased greater than 3 pounds in a 24 hour period or 5 pounds in a week. Your thyroid was checked, as your TSH was elevated last month when checked by your PCP, and given you take this medication appropriately and undertreated hypothyroidism can lead to increased weight gain/edema/fatigue/constipation, and your levothyroxine has been increased to 175 mcg daily. Your PCP should repeat your thyroid function testing in 4-6 weeks as an outpatient to ensure this has returned to normal and that you do not need any further adjustments. You were also incidentally found to have tested positive for COVID-19. You were started on steroids while inpatient but have completed this course. This was sent to your pharmacy when initially you were thought to go home so DO NOT pick this up as you do not need this anymore. You have been here long enough that you are outside the isolation window in regards to COVID. No additional precautions need to be taken at this time. You also had iron levels checked and were given replacement and your hemoglobin is improved and stable. Given chronic kidney disease, a Vitamin D level was checked and also found to be low and you were started on supplementation to help with bone health and prevent increased risks of fractures at discharge. You have been provided a walker and should use this when ambulating at least for now, to prevent falls. Your urine was found to have bacteria and since you did not look good prior to discharge initially, blood cultures were obtained and found to have bacteria in them. You are growing a bacteria called serratia marcescens and will complete treatment with Rocephin 2 g IV daily. You had a dose today so you will not have to do a dose until tomorrow on 01/23. You will need continued follow up with wound care at discharge. While having home health with the IV antibiotics, [facility] cannot do their lymphedema rehan tment. PLEASE DISCUSS WITH DR. MELTON AT THE APPOINTMENT TO GET A PRESCRIPTION FOR THIS SO THEY CAN START AFTER THE HOME HEALTH IS DONE. A prescription was sent to case management You should follow up with vascular medicine (Dr Cao) to consider variceal ablations to help with lymphedema. 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 You should follow up with your primary care in the next 7-10 days to monitor your progress after discharge. Please return to the emergency department with any fever/chills, chest pain, shortness of breath, or for any other symptoms concerning for you. It has been a pleasure being a part of the medical team providing for you while you have been in the hospital. Take care! Pending Studies at Discharge: No [facility]Alone [facility]: [facility]ations and DC Order Prescriptions: New famotidine 20 mg Tablet 20 mg PO BID Qty: 60 RF: 0 levothyroxine [Synthroid] 112 mcg Tablet 112 mcg PO DAILYBB Qty: 30 RF: 0 menthol-zinc oxide [Calmoseptine] 0.44-20.6 % Ointment 1 applic EXT UD Qty: 113 RF: 0 Dermacerin Cream 1 applic EXT BID Qty: 454 RF: 0 cholecalciferol (vitamin D3) 125 mcg (5,000 unit) Tablet 5,000 unit PO QAM Qty: 30 RF: 0 ceftriaxone 2 gram recon soln 2 g IV DAILY Qty: 11 RF: 0 Continued magnesium oxide 250 mg magnesium tablet 250 mg PO DAILY Qty: 30 RF: 0 allopurinol 300 mg tablet 300 mg PO DAILY RF: 0 tadalafil 20 mg tablet 20 mg PO DAILY PRN (Reason: Erectile Dysfunction) RF: 0 mesalamine 0.375 gram capsule,extended release 24hr 1.5 g PO DAILY RF: 0 potassium chloride 20 mEq tablet extended release 40 meq PO BID RF: 0 epinephrine [EpiPen 2-Sb] 0.3 mg/0.3 mL auto-injector 0.3 mg IM Q10M PRN (Reason: anaphylaxis) Qty: 2 RF: 2 metoprolol succinate 100 mg tablet extended release 24 hr 50 mg PO BID RF: 0 ondansetron 4 mg tablet,disintegrating 4 mg PO Q8H PRN (Reason: nausea and vomiting) RF: 0 triamcinolone acetonide 0.1 % ointment 1 applic topical DAILY PRN (Reason: Skin Irritation) RF: 0 Changed bumetanide 1 mg tablet 2 mg PO BID Qty: 120 RF: 0 Discontinued levothyroxine 100 mcg tablet 100 mcg PO DAILY Qty: 30 RF: 2 Discharge Orders: Discharge Order (Routine); Ordered 01/22/22 Ordered By: Jennifer Sanchez/Other Patient Handouts: Low-Salt Choices, ED Low-Salt Diet Admission Data Admit Date/Time: 01/10/22 19:10 Attending Provider: Cyrus Sellers Admit Provider: Precious Barba Primary Care Provider: Israel Melton Other Providers: Susan Giraldo ; John Reynoso ; [facility] Other Interventions: Discharge Summary Assessment (RN) Last Done: 01/22/22 13:50 Supervising Physician Co-Signing Physician Notes During face to face encounter, obtained summary of hospital stay, subjective findings, ane performed a physical examination. I discussed case and discharge planning with JENNIFER Aragon, and patient. I reviewed above note and agree with it. Patient will continue with bumex to treat the anasarca. Patient will remain on IV antibiotics as stated above. Ultrasound guided peripheral line has been placed. 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
== END 2022-01-22 14:59 | disposition home health service (06) | DRG 606 ==
LOC: ED 13:52 → SUATTDRO 19:10 → 2S 19:10

== ENCOUNTER 2022-04-01 12:08 | Inpatient (IN) ==
--- NOTE | 2022-04-01 13:02 | XRay Report ---
XR chest 1V portable HISTORY: 67 years-old Male Dyspnea, leg swelling acute shortness of breath COMPARISON: Chest radiograph 01/20/2022 TECHNIQUE: AP view of the chest FINDINGS: Cardiac silhouette is moderately enlarged. Poorly vascular congestion with interstitial coarsening. N o pneumothorax or large pleural effusion. Atherosclerosis of the thoracic aorta. Degenerative changes of the shoulders and spine. IMPRESSION: Cardiomegaly with pulmonary vascular congestion and interstitial coarsening suggestive of pulmonary edema. ACT 112: Negative or not required by law. The above report was generated using voice recognition software. It may contain grammatical, syntax o r spelling errors. Electronically signed by: Arturo Kwong M.D. 04/01/2022 1:00 PM
--- NOTE | 2022-04-01 14:36 | Emergency Department Note ---
Impression & Plan Anasarca, SOB (shortness of breath), Pulmonary edema ED Provider Note INFORMANT: Patient ED PROVIDER(S): Colby Stein MD CHIEF COMPLAINT: Swelling PLAN: Disposition: Admitted Condition: Good Outpatient prescription management: none Referral: None MEDICAL DECISION MAKING: Patient presented because of increased weight gain and swelling. He had significant anasarca present. His ECG showed a sinus rhythm. The patient's CBC and chemistry panel was unremarkable except for some mild renal insufficiency. Patient's troponin was negative. BNP was mildly elevated. Chest x-ray did show some mild pulmonary edema and cardiomegaly. Patient's diuretic regimen discussed with ED pharmacist. Patient was given dose of IV Bumex 4 mg. He will need further management in the hospital given his significant weight gain and fluid retention. [facility] Patient was evaluated in the ER for further management. Triage Nursing notes reviewed and agree them. Vital Signs: reviewed and remarkable for no significant abnormalities Differential diagnosis: Anasarca, lymphedema, DVT, musculoskeletal, infection, joint effusion, trauma, idiopathic, CHF, as well as other pathologies. Diagnostics interpreted by me: ECG: Twelve-lead ECG reveals a normal sinus rhythm at 87 bpm. Left axis deviation and right bundle branch block. Anteroseptal Q waves present. No ST elevation. Cardiac Monitoring: Cardiac monitoring ordered by me: The patient was placed on continuous cardiac monitoring and observed. It revealed a normal sinus rhythm at 88 beats per minute without ectopy or evidence of dysrhythmia. Imaging studies: Chest x-ray reveals mild pulmonary edema and cardiomegaly. No infiltrate or pneumothorax. HPI: The patient is a 67year old male with a past medical history of chronic kidney disease, lymph node dissection, and anasarca who presents to the Emergency Room with complaints of increasing edema. This started over the last several days and is worse. The patient also notes the following associated symptoms, weakness, shortness of breath difficulty ambulating due to the swelling, weeping of clear fluid from the legs. The patient has had his Bumex increased to 4 mg twice a day and was on 5 mg for relieving factors. Current pain is rated as 0/10. Patient has a history of similar issues. He also is followed by the lymphedema clinic. Patient was admitted to the end of December of this year and diuresed. Pt denies LOC, headache, fevers, chills, diaphoresis, visual changes, neck pain, chest pain, nausea, vomiting, abdominal pain, back pain, melena, hematochezia, urinary symptoms, numbness, lymphadenopat hy, rash, or other complaints. ROS: See above HPI for pertinent positives & negatives. A total of 10 systems reviewed and were otherwise negative. PAST MEDICAL HISTORY:See Below , CKD, CLL, appendiceal cancer PAST SURGICAL HISTORY:See Below, appendectomy, lymph node dissection FAMILY HISTORY:See Below SOCIAL HISTORY:See Below, HOME MEDICATIONS:See Below ALLERGIES:See Below VITALS:See Below PHYSICAL EXAMINATION: GENERAL: Awake, alert, dyspneic-appearing, in no distress HENT: Normocephalic, atraumatic. Oropharynx unremarkable. EYES: Normal conjunctiva. Sclera non-icteric. NECK: Inspection normal. Non-tender. Supple. No nuchal rigidity. FROM. No masses. RESPIRATORY few scattered rales rales. Normal respiratory effort. CARDIAC: Normal rate. Normal rhythm. No murmurs. No rubs. Extremities warm and well perfused. Pulses equal. No JVD. GI: Soft, non-distended. No tenderness to palpation. No rebound or guarding. No masses. Edema of the abdominal wall noted. : Significant scrotal and groin edema present. No tenderness. MUSCULOSKELETAL: Atraumatic. Chest examination reveals no tenderness. The back is symmetrical on inspection without obvious abnormality. There is no CVA tenderness to palpation. No joint edema. LOWER EXTREMITIES: Calves are equal size bilaterally and non-tender. 4+ edema. Chronic venous discoloration. NEURO: Normal sensorium. No sensory or motor deficits noted. SKIN: No rash or jaundice noted. 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) Family History Grandmother (Paternal) Colorectal cancer Father Myocardial infarction Prostate cancer Denies family history of Ovarian cancer Dementia Breast cancer Social History Smoking Status: Never smoker Second Hand Exposure: No; Hx Alcohol Use: No Hx Substance Use: No Preferred Language: Swiss Communication Ability: Effective Visual Impairment: Limited Hearing Ability: Normal [employer] Required: No Beliefs That Will Affect Care: None marital status: Current Living Situation: Spouse current occupational status: retired How many Children do You have: 2 Feels Safe at Home: Yes Childhood Exposure to Second-Hand Smoke: No Diet Comment: 2000 cc fluid restriction during the past year weight has: increased > 10 lbs Dental Care, Regularly: Yes Physical Activity Frequency: Daily Seatbelt Use: always Sunscreen Use: Yes Assistive Devices: Walker Allergies Allergies Allergy/AdvReac Type Severity Reaction Status Date / Time bee venom protein (honey bee) Allergy Severe DYSPNEA;SWE Verified 03/18/22 16:09 LLING Penicillins Allergy Unknown Verified 03/18/22 16:09 Home Meds Home Medications Medication Instructions Recorded Confirmed tadalafil 20 mg tablet 20 mg PO DAILY PRN 08/06/21 03/18/22 ondansetron 4 mg disintegrating 4 mg PO Q8H PRN 09/05/21 03/18/22 tablet potassium chloride 20 mEq 40 meq PO QID tab 03/29/22 tablet,extended release Previous Rx's Medication Instructions Recorded epinephrine 0.3 mg/0.3 mL 0.3 mg IM Q10M PRN #2 ea 08/06/21 injection, auto-injector (EpiPen 2-Sb) magnesium oxide 250 mg PO DAILY #30 tab 11/09/21 famotidine 20 mg tablet 20 mg PO BID #60 tab 01/19/22 menthol 0.44 %-zinc oxide 20.6 % 1 applic EXT UD #113 g 01/19/22 topical ointment (Calmoseptine) triamcinolone acetonide 0.1 % 1 applic TOPICAL DAILY PRN #80 g 02/08/22 topical ointment allopurinol 300 mg tablet 300 mg PO DAILY #90 tab 02/15/22 cholecalciferol (vitamin D3) 125 5,000 unit PO QAM #90 tab 02/15/22 mcg (5,000 unit) tablet levothyroxine 137 mcg tablet 137 mcg PO DAILY #90 tab 02/19/22 mesalamine 0.375 gram 1.5 g PO DAILY #90 cap 02/19/22 capsule,extended release 24 hr metoprolol succinate 100 mg 50 mg PO BID #180 tab 02/19/22 tablet,extended release 24 hr bumetanide 2 mg tablet 4 mg PO BID #120 tab 03/29/22 metolazone 5 mg tablet 5 mg PO DAILY #90 tab 03/29/22 Results & Data (ED) Vital Signs Vital Signs - 24 hr 04/01/22 12:11 04/01/22 15:30 Temperature 36.7 C Temperature Source Temporal Artery Scan Pulse Rate 82 Pulse Rate [Finger] 88 Respiratory Rate 20 18 Blood Pressure 141/67 H Blood Pressure [Right Arm] 128/59 L Blood Pressure Mean 91 Blood Pressure Mean [Right Arm] 82 Blood Pressure Position [Right Arm] Sitting Pulse Oximetry 98 93 Oxygen Delivery Method Room Air Room Air Sepsis Recent Fever Within 48 Hours No Sepsis New/Unexplained Change in Mental Status N/A Sepsis Action Taken by Nursing No Action Required Laboratory Data Result diagrams: 04/01/22 13:00 04/01/22 13:00 Lab Results 04/01/22 04/01/22 04/01/22 Range/Units 13:00 13:00 13:00 WBC 8.58 (4.8-10.8) K/uL RBC 3.21 L (4.7-6.1) M/uL Hgb 10.3 L (14.0-18.0) g/dL Hct 31.5 L (42-52) % MCV 98.1 (80-100) fL MCH 32.1 (25-34) pg MCHC 32.7 (32-36) g/dL RDW Std Deviation 57.3 H (36.4-46.3) fL RDW Coeff of Howie 16.0 H (11.5-14.5) % Plt Count 180 (130-400) K/uL MPV 10.0 (7.4-10.4) fL Immature Gran % (Auto) 0.3 % Neut % (Auto) 63.7 % Lymph % (Auto) 22.4 % [place] % (Auto) 8.6 % Eos % (Auto) 4.3 % Baso % (Auto) 0.7 % Neut # (Auto) 5.46 (1.4-6.5) K/uL Lymph # (Auto) 1.92 (1.2-3.4) K/uL [place] # (Auto) 0.74 H (0.11-0.59) K/uL Eos # (Auto) 0.37 (0-0.5) K/uL Baso # (Auto) 0.06 (0-0.2) K/uL Immature Gran # (Auto) 0.03 H (0.00-0.02) K/uL PT 14.6 H (9.0-12.0) Seconds INR 1.4 H (0.9-1.1) Sodium (136-145) mmol/L Potassium (3.5-5.1) mmol/L Chloride (98-107) mmol/L Carbon Dioxide (21-32) mmol/L Anion Gap (3-11) BUN (6-23) mg/dl Creatinine (0.6-1.4) mg/dl Est Cr Clr Drug Dosing ml/min Est GFR ( Amer) ml/min Est GFR (Non-Af Amer) ml/min BUN/Creatinine Ratio (10-20) Glucose (70-99(Fasting)) mg/dl Calcium (8.5-10.1) mg/dl Magnesium (1.7-2.4) mg/dl Total Bilirubin (0.2-1.0) mg/dl AST (13-39) U/L ALT (7-52) U/L Alkaline Phosphatase (34-104) U/L Troponin I High Sens 11.5 (0-20) pg/ml B-Natriuretic Peptide (0-100) pg/ml Total Protein (6.0-8.3) gm/dl Albumin (3.4-5.0) gm/dl Globulin (2.5-4.0) gm/dl Albumin/Globulin Ratio (0.9-2) Urine Color Urine Appearance (Clear) Urine pH (4.5-7.5) Ur Specific [place] (1.000-1.030) Urine Protein (Negative) Urine Glucose (UA) (Negative) Urine Ketones (Negative) Urine Blood (Negative) Urine Nitrite (Negative) Urine Bilirubin (Negative) Urine Urobilinogen (Negative) Ur Leukocyte Esterase (Negative) SARS-CoV-2, RNA, NAAT (NEGATIVE) 04/01/22 04/01/22 04/01/22 Range/Units 13:00 13:00 13:00 WBC (4.8-10.8) K/uL RBC (4.7-6.1) M/uL Hgb (14.0-18.0) g/dL Hct (42-52) % MCV (80-100) fL MCH (25-34) pg MCHC (32-36) g/dL RDW Std Deviation (36.4-46.3) fL RDW Coeff of Howie (11.5-14.5) % Plt Count (130-400) K/uL MPV (7.4-10.4) fL Immature Gran % (Auto) % Neut % (Auto) % Lymph % (Auto) % [place] % (Auto) % Eos % (Auto) % Baso % (Auto) % Neut # (Auto) (1.4-6.5) K/uL Lymph # (Auto) (1.2-3.4) K/uL [place] # (Auto) (0.11-0.59) K/uL Eos # (Auto) (0-0.5) K/uL Baso # (Auto) (0-0.2) K/uL Immature Gran # (Auto) (0.00-0.02) K/uL PT (9.0-12.0) Seconds INR (0.9-1.1) Sodium 134 L (136-145) mmol/L Potassium 3.1 L (3.5-5.1) mmol/L Chloride 92 L (98-107) mmol/L Carbon Dioxide 33 H (21-32) mmol/L Anion Gap 9 (3-11) BUN 29 H (6-23) mg/dl Creatinine 1.41 H (0.6-1.4) mg/dl Est Cr Clr Drug Dosing 75.3 ml/min Est GFR ( Amer) 60.2 ml/min Est GFR (Non-Af Amer) 51.9 ml/min BUN/Creatinine Ratio 20.6 H (10-20) Glucose 128 H (70-99(Fasting)) mg/dl Calcium 9.2 (8.5-10.1) mg/dl Magnesium 1.4 L (1.7-2.4) mg/dl Total Bilirubin 2.0 H (0.2-1.0) mg/dl AST 24 (13-39) U/L ALT 8 (7-52) U/L Alkaline Phosphatase 89 (34-104) U/L Troponin I High Sens (0-20) pg/ml B-Natriuretic Peptide 572 H (0-100) pg/ml Total Protein 7.3 (6.0-8.3) gm/dl Albumin 3.7 (3.4-5.0) gm/dl Globulin 3.6 (2.5-4.0) gm/dl Albumin/Globulin Ratio 1.0 (0.9-2) Urine Color Urine Appearance (Clear) Urine pH (4.5-7.5) Ur Specific [place] (1.000-1.030) Urine Protein (Negative) Urine Glucose (UA) (Negative) Urine Ketones (Negative) Urine Blood (Negative) Urine Nitrite (Negative) Urine Bilirubin (Negative) Urine Urobilinogen (Negative) Ur Leukocyte Esterase (Negative) SARS-CoV-2, RNA, NAAT NEGATIVE (NEGATIVE) 04/01/22 Range/Units 16:02 WBC (4.8-10.8) K/uL RBC (4.7-6.1) M/uL Hgb (14.0-18.0) g/dL Hct (42-52) % MCV (80-100) fL MCH (25-34) pg MCHC (32-36) g/dL RDW Std Deviation (36.4-46.3) fL RDW Coeff of Howie (11.5-14.5) % Plt Count (130-400) K/uL MPV (7.4-10.4) fL Immature Gran % (Auto) % Neut % (Auto) % Lymph % (Auto) % [place] % (Auto) % Eos % (Auto) % Baso % (Auto) % Neut # (Auto) (1.4-6.5) K/uL Lymph # (Auto) (1.2-3.4) K/uL [place] # (Auto) (0.11-0.59) K/uL Eos # (Auto) (0-0.5) K/uL Baso # (Auto) (0-0.2) K/uL Immature Gran # (Auto) (0.00-0.02) K/uL PT (9.0-12.0) Seconds INR (0.9-1.1) Sodium (136-145) mmol/L Potassium (3.5-5.1) mmol/L Chloride (98-107) mmol/L Carbon Dioxide (21-32) mmol/L Anion Gap (3-11) BUN (6-23) mg/dl Creatinine (0.6-1.4) mg/dl Est Cr Clr Drug Dosing ml/min Est GFR ( Amer) ml/min Est GFR (Non-Af Amer) ml/min BUN/Creatinine Ratio (10-20) Glucose (70-99(Fasting)) mg/dl Calcium (8.5-10.1) mg/dl Magnesium (1.7-2.4) mg/dl Total Bilirubin (0.2-1.0) mg/dl AST (13-39) U/L ALT (7-52) U/L Alkaline Phosphatase (34-104) U/L Troponin I High Sens (0-20) pg/ml B-Natriuretic Peptide (0-100) pg/ml Total Protein (6.0-8.3) gm/dl Albumin (3.4-5.0) gm/dl Globulin (2.5-4.0) gm/dl Albumin/Globulin Ratio (0.9-2) Urine Color Yellow Urine Appearance Clear (Clear) Urine pH 6.5 (4.5-7.5) Ur Specific [place] 1.007 (1.000-1.030) Urine Protein Negative (Negative) Urine Glucose (UA) Negative (Negative) Urine Ketones Negative (Negative) Urine Blood Negative (Negative) Urine Nitrite Negative (Negative) Urine Bilirubin Negative (Negative) Urine Urobilinogen Negative (Negative) Ur Leukocyte Esterase Negative (Negative) SARS-CoV-2, RNA, NAAT (NEGATIVE) Administered Medications Discontinued Medications Bumetanide 4 mg/ Syringe 16 mls @ 4 mls/min IV ONE ONE Stop: 04/01/22 15:19 Last Admin: 04/01/22 16:08 Dose: 4 mls/min Documented by: [id number] Potassium Chloride (Potassium Chloride Crtab 20 Meq Tabcr) 40 meq PO NOW STA Stop: 04/01/22 15:17 Last Admin: 04/01/22 16:08 Dose: 40 meq Documented by: [id number] Imaging Data Radiologist's Impression: Chest X-Ray 04/01/22 12:29 XR chest 1V portable HISTORY: 67 years-old Male Dyspnea, leg swelling acute shortness of breath COMPARISON: Chest radiograph 01/20/2022 TECHNIQUE: AP view of the chest FINDINGS: Cardiac silhouette is moderately enlarged. Poorly vascular congestion with interstitial coarsening. No pneumothorax or large pleural effusion. Atherosclerosis of the thoracic aorta. Degenerative changes of the shoulders and spine. IMPRESSION: Cardiomegaly with pulmonary vascular congestion and interstitial coarsening suggestive of pulmonary edema. ACT 112: Negative or not required by law. The above report was generated using voice recognition software. It may contain grammatical, syntax or spelling errors. Electronically signed by: Arturo Kwong M.D. 04/01/2022 1:00 PM Discharge Plan Visit Data Chief Complaint: Swelling/Edema to Extremity Stated Complaint: EDEMA TO EXTREMITIES ED Provider: Colby Stein Discharge Problem: Anasarca, SOB (shortness of breath), Pulmonary edema Forms Stand Alone Forms: My [facility] Prescriptions Prescriptions: No Action triamcinolone acetonide 0.1 % ointment 1 applic topical DAILY PRN (Reason: Skin Irritation) Qty: 80 RF: 1 cholecalciferol (vitamin D3) 125 mcg (5,000 unit) tablet 5,000 unit PO QAM Qty: 90 RF: 3 allopurinol 300 mg tablet 300 mg PO DAILY Qty: 90 RF: 3 bumetanide 2 mg tablet 4 mg PO BID Qty: 120 RF: 3 potassium chloride 20 mEq tablet extended release 40 meq PO QID RF: 0 metolazone 5 mg tablet 5 mg PO DAILY Qty: 90 RF: 3 magnesium oxide 250 mg magnesium tablet 250 mg PO DAILY Qty: 30 RF: 0 levothyroxine 137 mcg tablet 137 mcg PO DAILY Qty: 90 RF: 3 mesalamine 0.375 gram capsule,extended release 24hr 1.5 g PO DAILY Qty: 90 RF: 3 metoprolol succinate 100 mg tablet extended release 24 hr 50 mg PO BID Qty: 180 RF: 3 tadalafil 20 mg tablet 20 mg PO DAILY PRN (Reason: Erectile Dysfunction) RF: 0 epinephrine [EpiPen 2-Sb] 0.3 mg/0.3 mL auto-injector 0.3 mg IM Q10M PRN (Reason: anaphylaxis) Qty: 2 RF: 2 ondansetron 4 mg tablet,disintegrating 4 mg PO Q8H PRN (Reason: nausea and vomiting) RF: 0 famotidine 20 mg Tablet 20 mg PO BID Qty: 60 RF: 0 menthol-zinc oxide [Calmoseptine] 0.44-20.6 % Ointment 1 applic EXT UD Qty: 113 RF: 0 Referrals Referrals: ProIsrael MD [Primary Care Provider] -
[2022-04-01 14:58] LABS: Basophils # (auto) 0.06 K/uL (0-0.2); Basophils % (auto) 0.7 %; Eosinophils # (auto) 0.37 K/uL (0-0.5); Eosinophils % (auto) 4.3 %; Hematocrit (blood only) 31.5 % (42-52); Hemoglobin 10.3 g/dL (14.0-18.0); Immature Granulocytes # (auto) 0.03 K/uL (0.00-0.02); Immature Granulocytes % (auto) 0.3 %; Lymphocytes # (auto) 1.92 K/uL (1.2-3.4); Lymphocytes % (auto) 22.4 %; Mean Corpuscular Hemoglobin 32.1 pg (25-34); Mean Corpuscular Hgb Conc 32.7 g/dL (32-36); Mean Corpuscular Volume 98.1 fL (80-100); Monocytes # (auto) 0.74 K/uL (0.11-0.59); Monocytes % (auto) 8.6 %; Neutrophils # (auto) 5.46 K/uL (1.4-6.5); Neutrophils % (auto) 63.7 %; Platelet Count 180 K/uL (130-400); RDW Standard Deviation 57.3 fL (36.4-46.3); Red Blood Count 3.21 M/uL (4.7-6.1); White Blood Count 8.58 K/uL (4.8-10.8)
[2022-04-01 15:01] LABS: INR 1.4 (0.9-1.1); Prothrombin Time 14.6 Seconds (9.0-12.0)
[2022-04-01 15:13] LABS: Albumin Level 3.7 gm/dl (3.4-5.0); BUN Creatinine Ratio 20.6 (10-20); Calcium 9.2 mg/dl (8.5-10.1); Creatinine Clr Calc Pharmacy 75.3 ml/min; Est GFR (African American) 60.2 ml/min; Est GFR (Non-African American) 51.9 ml/min; Globulin 3.6 gm/dl (2.5-4.0); Magnesium 1.4 mg/dl (1.7-2.4); Potassium 3.1 mmol/L (3.5-5.1); Total Protein 7.3 gm/dl (6.0-8.3)
[2022-04-01] MEDS ORDERED: BUMETANIDE 4 MG in SYRINGE 0 ML IV ONE ×2 (15:16→19:30)
[2022-04-01] MEDS ORDERED: POTASSIUM CHLORIDE CRTAB 20 MEQ TABCR PO STA (15:16)
[2022-04-01 16:32] LABS: Appearance Urine Clear (Clear); Bilirubin Urine Negative (Negative); Blood Urine Negative (Negative); Color Urine Yellow; Glucose Urine UA Negative (Negative); Ketones Urine Negative (Negative); Leukocyte Esterase Urine Negative (Negative); Nitrite Urine Negative (Negative); Protein Urine Negative (Negative); Specific Gravity Urine 1.007 (1.000-1.030); Urobilinogen Urine Negative (Negative); pH Urine 6.5 (4.5-7.5)
--- NOTE | 2022-04-01 16:50 | History & Physical Report ---
Date of Service April 01, 2022 Assessment & Plan (1) Anasarca: Plan: - Presents with nearly 2 months of worsening edema, on bilateral lower extremities, scrotum, and abdomen. With pulmonary edema on CXR. With elevated proBNP - Echo in Dec 2021: EF 60-65% with borderline LVH, no regional wall motion abnormalities, LV function normal. Mild tricuspid regurg. Acute on chronic diastolic CHF - Follows with nephrology, home diuretic regimen consists of 4 mg Bumex twice daily plus metolazone 5 mg daily. -Give metolazone 30 minutes prior to a.m. Bumex dose. - Received 4 mg IV Bumex x1 in ED, will give one more dose this evening and continue this twice daily for now. - Nephrology consulted, appreciate their recommendations. - Vela catheter attempted to be placed in ED, however due to scrotal edema could not be done. Urology will be consulted for placement. - Strict I/Os, daily weights, sodium and 1.5 fluid restriction. Elevate legs. - Dry weight on discharge 2 months ago was 250 pounds. Documented weight at nephrology visit on 03/14 was 299 lbs. Weight documented today in ED is 327 lbs. - Repeat BMP in AM. (2) Hypokalemia: Plan: - 3.1 in ED, replete and check labs in AM. (3) Hypomagnesemia: Plan: - 1.4 in ED, replete and check labs in AM. (4) Chronic kidney disease, stage 3a: Plan: - Baseline creatinine 1.3, is 1.41 today. - Nephrology consulted as above. - On KCl 40 mEq TID. Received 40 mEq x2 on admission, follow on BMP in AM. - Avoid nephrotoxic agents, renally dose medications as able. (5) Hypertension: Plan: - Continue metoprolol 50mg BID. (6) Hypothyroidism: Plan: - Continue levothyroxine 137 mcg daily. - TSH 2.56 in February. (7) S/P ablation of atrial fibrillation: Plan: - Previously underwent ablation and is currently in sinus rhythm. - Continue metoprolol succinate 50mg PO BID. - Not on DOAC due to history of significant GI bleed requiring hospitalization and over 5 units of blood for stabilization. (8) CML (chronic myelocytic leukemia): Plan: - Diagnosed with CML in 2010; not currently on medical therapy. - Was previously on oral chemotherapy, however d/c'd as patient is in remission and it was thought hat it may have been contributing to his edema. 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 - Has lymphedema pumps. (10) GERD (gastroesophageal reflux disease): Plan: - Continue Pepcid 20mg BID. (11) Venous ulcers of both lower extremities: Plan: - Follows with wound care. Plan: - Admit to med/tele. - SCDs, lovenox for DVT ppx. - Full code. History of Present Illness Chief Complaint: worsening leg edema Primary Care Provider: Israel Melton MD Mr. Bashir is a 67-year-old male with a past medical history of CML and appendiceal cancer (in remission), CKD stage IIIa, hypertension, hyperlipidemia, hypothyroidism, peripheral vascular disease, A. fib s/p ablation, and ulcerative colitis who presents today with increasing edema and shortness of breath. Patient was admitted to the hospital from 01/10 - 01/22 for anasarca despite being on Bumex BID at home. At that time he required Bumex drip with Diuril which he responded well to, diuresed for nearly 60 pounds of fluid. He was d/c'd on 01/22 at 250 lbs, and reports for 2 weeks following discharge, he was able to stay ahead of his swelling with his Bumex, however since then he has trouble maintaining it despite increases in his home Bumex dose and addition of metolazone 3x weekly recently increased to 5mg daily. He has associated FLORES, reports he is out of breath after walking 60-70 feet to his garage which is a change from his baseline, he is typically able to ambulate "much more". Otherwise without complaint, no fever/chills, weakness, myalgias, chest pain, palpitation, abdominal pain, nausea/vomiting. In ED, vital signs are stable and within normal limits. Labs significant for hemoglobin 10.3 (near baseline), Na+ 134, K+ 3.1, Mg++ 1.4. BUN 29, Cr 1.41, about baseline. T. bili 2.0 (baseline). BNP 572. UA unremarkable. COVID- negative. CXR showed cardiomegaly with pulmonary vascular congestion and interstitial coarsening suggestive of pulmonary edema. Patient received 4 mg IV Bumex, as well as magnesium and potassium in ED. Hospitalist service was consulted further evaluation and admission. Allergies Allergy/AdvReac Type Severity Reaction Status Date / Time bee venom protein (honey bee) Allergy Severe DYSPNEA;SWE Verified 03/18/22 16:09 LLING Penicillins Allergy Unknown Verified 03/18/22 16:09 Home Medications Medication Instructions Recorded Confirmed Type epinephrine 0.3 mg/0.3 mL 0.3 mg IM Q10M PRN #2 ea 08/06/21 03/18/22 Rx injection, auto-injector (EpiPen 2-Sb) tadalafil 20 mg tablet 20 mg PO DAILY PRN 08/06/21 03/18/22 History ondansetron 4 mg disintegrating 4 mg PO Q8H PRN 09/05/21 03/18/22 History tablet magnesium oxide 250 mg PO DAILY #30 tab 11/09/21 03/18/22 Rx famotidine 20 mg tablet 20 mg PO BID #60 tab 01/19/22 03/18/22 Rx menthol 0.44 %-zinc oxide 20.6 % 1 applic EXT UD #113 g 01/19/22 03/18/22 Rx topical ointment (Calmoseptine) triamcinolone acetonide 0.1 % 1 applic TOPICAL DAILY PRN #80 g 02/08/22 03/18/22 Rx topical ointment allopurinol 300 mg tablet 300 mg PO DAILY #90 tab 02/15/22 03/18/22 Rx cholecalciferol (vitamin D3) 125 5,000 unit PO QAM #90 tab 02/15/22 03/18/22 Rx mcg (5,000 unit) tablet levothyroxine 137 mcg tablet 137 mcg PO DAILY #90 tab 02/19/22 03/18/22 Rx mesalamine 0.375 gram 1.5 g PO DAILY #90 cap 02/19/22 03/18/22 Rx capsule,extended release 24 hr metoprolol succinate 100 mg 50 mg PO BID #180 tab 02/19/22 03/18/22 Rx tablet,extended release 24 hr bumetanide 2 mg tablet 4 mg PO BID #120 tab 03/29/22 Rx metolazone 5 mg tablet 5 mg PO DAILY #90 tab 03/29/22 Rx potassium chloride 20 mEq 40 meq PO QID tab 03/29/22 History tablet,extended release Past Med/Surg History Medical History (Updated 04/01/22 @ 23:44 by Urvashi Murphy MD) Acute kidney injury Atrial flutter 10/02/2020: Ablation of typical right atrial isthmus dependent flutter. [facility] Cancer of appendix Chronic kidney disease, stage 3a CML (chronic myelocytic leukemia) GERD (gastroesophageal reflux disease) Hypertension Hypokalemia Hypothyroidism Lymphedema Murmur Paroxysmal A-fib SVT (supraventricular tachycardia) 01/21/2012: Ablation of typical slow fast AVNRT [facility] Trifascicular block Surgical History (Updated 04/01/22 @ 18:01 by Veronica Devine PA-C) H/O hernia repair (12/04/12) H/O laparoscopy H/O left knee surgery H/O lymph node excision H/O right hemicolectomy History of removal of Port-a-Cath Status post ablation of atrial flutter (12/04/12) 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) Family History Grandmother (Paternal) Colorectal cancer Father Myocardial infarction Prostate cancer Denies family history of Ovarian cancer Dementia Breast cancer Social History Smoking Status: Never smoker Second Hand Exposure: No; Hx Alcohol Use: No Hx Substance Use: No Preferred Language: Japanese Communication Ability: Effective Visual Impairment: Limited Hearing Ability: Normal Lab Analyst Required: No Beliefs That Will Affect Care: None marital status: Current Living Situation: Spouse current occupational status: retired How many Children do You have: 2 Feels Safe at Home: Yes Safety Concerns: Feels Safe At This Time Childhood Exposure to Second-Hand Smoke: No Diet Comment: 2000 cc fluid restriction during the past year weight has: increased > 10 lbs Dental Care, Regularly: Yes Physical Activity Frequency: Daily Seatbelt Use: always Sunscreen Use: Yes Assistive Devices: Cane, Glasses and Walker Review of Systems Review of Systems: Constitutional: No fever/chills, weakness, fatigue, myalgias, anorexia, night sweats Eyes: No diplopia, no worsening or blurred vision ENT: normal hearing, no trouble swallowing Respiratory: SOB with activity when walking 60-70 feet, has progressed as his edemas has worsened; No cough, sputum, dyspnea at rest Cardiovascular: No chest pain, tightness or palpitations Abdomen: abdomidnal swelling and "fullness"; No pain, nausea, vomiting, diarrhea or constipation : Denies dysuria, hematuria, increased urgency/frequency, urinary retention Musculoskeletal: progressive b/l LE swelling for 2 months; No joint pain, calf pain Neurologic: No weakness, numbness/tingling, or balance problems Psychiatric: No anxiety or depression Skin: No rash or itch Physical Exam Physical Exam: General: awake, alert, no apparent distress, on RA Head: Normocephalic, atraumatic ENT: PERRL, EOMI, no pharyngeal exudate, mucous membranes moist Chest: Clear to auscultation, on room air, no adventitious breath sounds Cardiac: Regular rate and rhythm, murmur present, per previous documents this is chronic, normal peripheral pulses, good capillary refill Abdominal: NABS x 4 quadrants, soft, nontender to palpation, no rebound, guard ing or tenderness Extremities: b/l LE's edematous with some serosanguineous fluid weeping from skin tears; skin is red, edema to the level of abdomen and involves scrotum; calfs nontender to palpation Psych: Normal mood and affect Neuro: AAO x 3, strength intact bilaterally and rated 5/5, no motor deficits, speech is clear, no peripheral sensory deficits Skin: erythematous LEs findings consistent with PVD; with several areas of serosanguineous fluid leaking from skin due to overwhelming edema Results & Data Results & Data ([facility]) Vital Signs (Past 12 Hours) Vital Signs Temp Pulse Pulse Resp BP BP Pulse Ox 04/01/22 15:30 88 18 128/59 L 93 04/01/22 12:11 36.7 C 82 20 141/67 H 98 Laboratory Results Abnormal lab results 04/01/22 04/01/22 04/01/22 Range/Units 13:00 13:00 13:00 RBC 3.21 L (4.7-6.1) M/uL Hgb 10.3 L (14.0-18.0) g/dL Hct 31.5 L (42-52) % RDW Std Deviation 57.3 H (36.4-46.3) fL RDW Coeff of Howie 16.0 H (11.5-14.5) % Cobb # (Auto) 0.74 H (0.11-0.59) K/uL Immature Gran # (Auto) 0.03 H (0.00-0.02) K/uL PT 14.6 H (9.0-12.0) Seconds INR 1.4 H (0.9-1.1) Sodium 134 L (136-145) mmol/L Potassium 3.1 L (3.5-5.1) mmol/L Chloride 92 L (98-107) mmol/L Carbon Dioxide 33 H (21-32) mmol/L BUN 29 H (6-23) mg/dl Creatinine 1.41 H (0.6-1.4) mg/dl BUN/Creatinine Ratio 20.6 H (10-20) Glucose 128 H (70-99(Fasting)) mg/dl Magnesium 1.4 L (1.7-2.4) mg/dl Total Bilirubin 2.0 H (0.2-1.0) mg/dl B-Natriuretic Peptide (0-100) pg/ml 04/01/22 Range/Units 13:00 RBC (4.7-6.1) M/uL Hgb (14.0-18.0) g/dL Hct (42-52) % RDW Std Deviation (36.4-46.3) fL RDW Coeff of Howie (11.5-14.5) % Cobb # (Auto) (0.11-0.59) K/uL Immature Gran # (Auto) (0.00-0.02) K/uL PT (9.0-12.0) Seconds INR (0.9-1.1) Sodium (136-145) mmol/L Potassium (3.5-5.1) mmol/L Chloride (98-107) mmol/L Carbon Dioxide (21-32) mmol/L BUN (6-23) mg/dl Creatinine (0.6-1.4) mg/dl BUN/Creatinine Ratio (10-20) Glucose (70-99(Fasting)) mg/dl Magnesium (1.7-2.4) mg/dl Total Bilirubin (0.2-1.0) mg/dl B-Natriuretic Peptide 572 H (0-100) pg/ml Diagnostic Findings Chest X-Ray 04/01/22 12:29 XR chest 1V portable HISTORY: 67 years-old Male Dyspnea, leg swelling acute shortness of breath COMPARISON: Chest radiograph 01/20/2022 TECHNIQUE: AP view of the chest FINDINGS: Cardiac silhouette is moderately enlarged. Poorly vascular congestion with interstitial coarsening. No pneumothorax or large pleural effusion. Atherosclerosis of the thoracic aorta. Degenerative changes of the shoulders and spine. IMPRESSION: Cardiomegaly with pulmonary vascular congestion and interstitial coarsening suggestive of pulmonary edema. ACT 112: Negative or not required by law. The above report was generated using voice recognition software. It may contain grammatical, syntax or spelling errors. Electronically signed by: Arturo Kwong M.D. 04/01/2022 1:00 PM ECG Additional Comments: Normal sinus rhythm Left axis deviation Right bundle branch block Anteroseptal infarct (cited on or before 05-OCT-2012) Abnormal ECG When compared with ECG of 10-JAN-2022 14:39, Questionable change in initial forces of Septal leads. Code Status & VTE Plan Code Status Full Code. Supervising Physician Co-Signing Physician Notes PA Supervision Note: I personally saw and examined the patient. I verified all raza points and agree with SHERRON Devine with the following exceptions and/or additions: S-this patient is a 67-year-old male with history of CKD stage III, anasarca, HTN, hypothyroidism, GERD, ulcerative colitis, here with recurrent anasarca, worsening swelling all over and weight gain with increased shortness of breath and weakness. He has been working with nephrology as an outpatient and increasing his diuretics to no avail. History and ROS reviewed as above O- Vitals reviewed Gen: AAOx3, NAD, obese HEENT: Anicteric sclerae, EOMI CV: RRR harsh 3/6 systolic murmur at the left lower sternal border, nl S1S2 Pulm: CTAB no wcr Abd: +BS soft edema NT ND no masses or hernias Ext: 4+ pitting edema to the abdomen and lower extremities bilaterally, with weeping of serous fluid Skin: Chronic venous stasis changes with chronic erythema of the legs bilaterally Neuro: Full strength throughout Labs and rads, ECG reviewed A/Z-[id number] with history as above, here with anasarca, likely secondary to acute on chronic diastolic heart failure Needs aggressive IV diuresis with careful monitoring of renal function Consult his clinical data management manager who has mentioned possible need for dialysis in the future if attempts at diuresis cause worsening renal failure Replace electrolytes and follow labs PG Care Time/CCT Total # of Minutes Spent Total Time Spent with Patient: Total time spent is greater than 50% in coordination of care (as documented) at patient's floor/unit and/or counseling patient: Coding Level of Care Code 51063 Initial Inpt Care Lvl 3 Diagnoses Anasarca R60.1 Hypokalemia E87.6 Hypomagnesemia E83.42 Hypertension I10 Hypothyroidism E03.9 S/P ablation of atrial fibrillation Z98.890; Z86.79 Venous ulcers of both lower extremities I83.019; I83.029; L97.919; L97.929 CML (chronic myelocytic leukemia) C92.10 H/O lymph node excision Z98.890 Chronic kidney disease, stage 3a N18.31 GERD (gastroesophageal reflux disease) K21.9
[2022-04-01] MEDS: MAGNESIUM SULFATE / D5W 1 GM/100 ML BAG IV SCH ×3 (18:03→21:23)
[2022-04-01] MEDS ORDERED: ONDANSETRON INJ 2 MG/ML 2 ML VIAL IV PRN (20:22)
[2022-04-01] MEDS ORDERED: MENTHOL-ZINC OXIDE 360 APPLN/120 GM TUBE EXT SCH (20:22)
[2022-04-01] MEDS ORDERED: POTASSIUM CHLORIDE CRTAB 20 MEQ TABCR PO ONE (20:22)
[2022-04-01] MEDS ORDERED: TRIAMCINOLONE ACET 0.1% OINT 15 GM TUBE TOP PRN (20:22)
[2022-04-01] MEDS ORDERED: ACETAMINOPHEN 325 MG TAB PO PRN (20:22)
[2022-04-01] MEDS ORDERED: POTASSIUM CHLORIDE CRTAB 20 MEQ TABCR PO SCH (21:00)
[2022-04-01] MEDS ORDERED: ENOXAPARIN INJ 40 MG/0.4 ML SYR SQ SCH (21:00)
[2022-04-01] MEDS: FAMOTIDINE 20 MG TAB PO SCH (21:04)
[2022-04-01] MEDS: METOPROLOL SUCC 50MG EXT REL TAB PO SCH (21:04)
[2022-04-02] MEDS: LEVOTHYROXINE SODIUM 137 MCG TABLET PO SCH (05:47)
[2022-04-02 07:06] LABS: Basophils # (auto) 0.05 K/uL (0-0.2); Basophils % (auto) 0.5 %; Eosinophils # (auto) 0.32 K/uL (0-0.5); Eosinophils % (auto) 3.3 %; Hematocrit (blood only) 31.2 % (42-52); Hemoglobin 10.2 g/dL (14.0-18.0); Immature Granulocytes # (auto) 0.04 K/uL (0.00-0.02); Immature Granulocytes % (auto) 0.4 %; Lymphocytes # (auto) 1.97 K/uL (1.2-3.4); Lymphocytes % (auto) 20.1 %; Mean Corpuscular Hemoglobin 32.8 pg (25-34); Mean Corpuscular Hgb Conc 32.7 g/dL (32-36); Mean Corpuscular Volume 100.3 fL (80-100); Mean Platelet Volume 9.4 fL (7.4-10.4); Monocytes # (auto) 0.96 K/uL (0.11-0.59); Monocytes % (auto) 9.8 %; Neutrophils # (auto) 6.46 K/uL (1.4-6.5); Neutrophils % (auto) 65.9 %; Platelet Count 163 K/uL (130-400); RDW Coefficient of Variation 16.1 % (11.5-14.5); RDW Standard Deviation 58.5 fL (36.4-46.3); Red Blood Count 3.11 M/uL (4.7-6.1)
[2022-04-02 07:42] LABS: BUN Creatinine Ratio 21.4 (10-20); Calcium 9.1 mg/dl (8.5-10.1); Creatinine Clr Calc Pharmacy 76.8 ml/min; Est GFR (African American) 65.8 ml/min; Est GFR (Non-African American) 56.7 ml/min; Magnesium 1.7 mg/dl (1.7-2.4); Potassium 3.1 mmol/L (3.5-5.1)
[2022-04-02 07:43] LABS: Iron 85 mcg/dl (35-175); Total Iron Binding Cap Calc 297 mcg/dl (250-450); Transferrin (FE) Percent Satur 29 % (20-50); Unsaturated Iron Binding Cap 212 mcg/dl (155-355)
[2022-04-02] MEDS: POTASSIUM CHLORIDE CRTAB 20 MEQ TABCR PO SCH ×3 (08:04→20:05)
[2022-04-02] MEDS: FAMOTIDINE 20 MG TAB PO SCH ×2 (08:06→20:04)
[2022-04-02] MEDS: CHOLECALCIFEROL 5,000 UNITS 125 MCG TAB PO SCH (08:06)
[2022-04-02] MEDS: METOPROLOL SUCC 50MG EXT REL TAB PO SCH ×2 (08:06→20:04)
[2022-04-02] MEDS: MAGNESIUM OXIDE 400 MG TAB PO SCH (08:06)
[2022-04-02] MEDS: metOLazone 5 MG TABLET PO SCH (08:06)
[2022-04-02] MEDS: allopurinoL 300 MG TAB PO SCH (08:07)
--- NOTE | 2022-04-02 08:40 | Nephrology Consultation ---
Date of Consultation April 02, 2022 Assessment & Plan (1) Chronic kidney disease, stage 3a: * CKD stage G3a/A1. Baseline Cr has been 1.5 w/ EGFR 49 cc/min. UPCR has been < 0.2. Renal impairment is due to poor renal perfusion associated w/ R heart failure and microvascular disease * 01/15 CTA of abdomen revealed bilateral cortical atrophy of the kidneys. No hydronephrosis * Serum albumin is wnl. Urinalysis is negative for protein. No evidence of nephrotic syndrome * Monitor PRP (2) Right heart failure: * 01/21/22 Echocardiogram: LVEF 60 - 65%, no effusion, no significant valvular abnormality * 01/15 CTA of the chest was negative for PE * Patient clinically has RHF w/ preserved LVEF. Unclear whether he has underlying SAM, pulmonary HTN or other cause for RHF (3) Peripheral edema: * Will change loop diuretic to Furosemide 100 mg IV q8 hrs. Change back to oral Bumex or Torsemide once volume status improved * Continue Metolazone 5 mg po daily * Monitor UO, PRP * As outpatient, Mr. Bashir would benefit from 24 hour urine collection to measure daily urinary sodium excretion. * Will consult dietitian - request education for patient on 1500 mg/day NaCl restricted diet * Discussed vascular access creation and PLUSH FINISHER w/ patient in detail today. Currently he is responding to IV diuretic therapy. As outpatient he may benefit from AVF creation to serve as access if PLUSH FINISHER becomes necessary History of Present Illness Reason for Consultation: Refractory edema Attending Physician: Cyrus Sellers History of Present Illness Mr. Bashir is a 67 year old white male who is seen at the request of Dr. Murphy for evaluation of CKD and diuretic resistant edema. Medical records in the EMR were reviewed today and are summarized as follows: Mr. Bashir has CKD stage G3a/A1. Baseline Cr has been 1.5 w/ EGFR 49 cc/min. UPCR has been < 0.2. His medical history is significant for CML, appendiceal CA s/p R hemicolectomy, atrial fibrillation/flutter, hypothyroidism, obesity (5ft 9in, wt 250 lbs, BMI 40), and chronic LE lymphedema. As an outpatient his volume status was maintained w/ Bumetanide 3 mg po BID and Metolazone 5 mg 3x/week. Mr. Bashir reports a 60 lb weight gain over the last 2 months with progressive abdominal distention and tense LE swelling that limits his ability to ambulate. Mr. Bashir has been admitted to the hospitalist service and started on IV Bumetanide. He is now in net negative fluid balance w/ -2700 cc diuresis overnight. Allergies Allergy/AdvReac Type Severity Reaction Status Date / Time bee venom protein (honey bee) Allergy Severe DYSPNEA;SWE Verified 03/18/22 16:09 LLING Penicillins Allergy Unknown Verified 03/18/22 16:09 Home Medications Medication Instructions Recorded Confirmed Type epinephrine 0.3 mg/0.3 mL 0.3 mg IM Q10M PRN #2 ea 08/06/21 03/18/22 Rx injection, auto-injector (EpiPen 2-Sb) tadalafil 20 mg tablet 20 mg PO DAILY PRN 08/06/21 03/18/22 History ondansetron 4 mg disintegrating 4 mg PO Q8H PRN 09/05/21 03/18/22 History tablet magnesium oxide 250 mg PO DAILY #30 tab 11/09/21 03/18/22 Rx famotidine 20 mg tablet 20 mg PO BID #60 tab 01/19/22 03/18/22 Rx menthol 0.44 %-zinc oxide 20.6 % 1 applic EXT UD #113 g 01/19/22 03/18/22 Rx topical ointment (Calmoseptine) triamcinolone acetonide 0.1 % 1 applic TOPICAL DAILY PRN #80 g 02/08/22 03/18/22 Rx topical ointment allopurinol 300 mg tablet 300 mg PO DAILY #90 tab 02/15/22 03/18/22 Rx cholecalciferol (vitamin D3) 125 5,000 unit PO QAM #90 tab 02/15/22 03/18/22 Rx mcg (5,000 unit) tablet levothyroxine 137 mcg tablet 137 mcg PO DAILY #90 tab 02/19/22 03/18/22 Rx mesalamine 0.375 gram 1.5 g PO DAILY #90 cap 02/19/22 03/18/22 Rx capsule,extended release 24 hr metoprolol succinate 100 mg 50 mg PO BID #180 tab 02/19/22 03/18/22 Rx tablet,extended release 24 hr bumetanide 2 mg tablet 4 mg PO BID #120 tab 03/29/22 Rx metolazone 5 mg tablet 5 mg PO DAILY #90 tab 03/29/22 Rx potassium chloride 20 mEq 40 meq PO QID tab 03/29/22 History tablet,extended release Patient History Medical History (Updated 04/02/22 @ 09:52 by Hardeep Quintero MD) Acute kidney injury Atrial flutter 10/02/2020: Ablation of typical right atrial isthmus dependent flutter. [facility] Cancer of appendix Chronic kidney disease, stage 3a CML (chronic myelocytic leukemia) GERD (gastroesophageal reflux disease) Hypertension Hypokalemia Hypothyroidism Lymphedema Murmur Paroxysmal A-fib SVT (supraventricular tachycardia) 01/21/2012: Ablation of typical slow fast AVNRT [facility] Trifascicular block Surgical History (Updated 04/01/22 @ 18:01 by Veronica Devine PA-C) H/O hernia repair (12/04/12) H/O laparoscopy H/O left knee surgery H/O lymph node excision H/O right hemicolectomy History of removal of Port-a-Cath Status post ablation of atrial flutter (12/04/12) 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) Family History Grandmother (Paternal) Colorectal cancer Father Myocardial infarction Prostate cancer Denies family history of Ovarian cancer Dementia Breast cancer Social History (Updated 04/02/22 @ 09:46 by Hardeep Quintero MD) Smoking Status: Never smoker Second Hand Exposure: No; Hx Alcohol Use: No Hx Substance Use: No Preferred Language: Bulgarian Communication Ability: Effective Visual Impairment: Limited Hearing Ability: Normal Car Ferry Master Required: No Beliefs That Will Affect Care: None marital status: Current Living Situation: Spouse 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 How many Children do You have: 2 Feels Safe at Home: Yes Safety Concerns: Feels Safe At This Time Childhood Exposure to Second-Hand Smoke: No Diet Comment: 2000 cc fluid restriction during the past year weight has: increased > 10 lbs Dental Care, Regularly: Yes Physical Activity Frequency: Daily Seatbelt Use: always Sunscreen Use: Yes Assistive Devices: Cane, Glasses and Walker Review of Systems Constitutional: no fever Eyes: no worsening vision Ear, Nose, Mouth, Throat: no problem reported Respiratory: no cough and no dyspnea Cardiovascular: no chest pain Additional Comments: + tense LE swelling Gastrointestinal: + bloating; no abdominal pain Genitourinary: no dysuria, no urinary hesitancy or no hematuria Musculoskeletal: no back pain Integumentary: no rash Neurologic: no falls, no dizziness and no confusion Physical Exam Constitutional: + morbidly obese Eyes: PERRL, conjunctivae normal, anicteric sclerae ENMT: external ear and nose normal, oropharynx normal Neck: trachea midline, no thyromegaly Respiratory: normal respiratory effort, lungs clear to auscultation Cardiovascular: Rate/Rhythm: regular rate and regular rhythm Extremities: + edema (tense pretibial edema) Gastrointestinal (Abdomen): Inspection/Auscultation: + abdomen distended Percussion/Palpation: abdomen nontender and no guarding Skin: stasis dermatitis of bilateral LE Neurologic: awake; not confused Results & Data ([facility]) Vital Signs (Past 12 Hours) Vital Signs Temp Pulse Pulse Resp BP Pulse Ox 04/02/22 08:03 84 131/66 04/02/22 07:20 76 04/02/22 06:38 36.9 C 78 20 124/74 91 04/02/22 03:24 37.2 C 81 18 131/61 93 04/01/22 23:17 84 04/01/22 22:59 37.3 C 86 18 153/70 H 93 Laboratory Results Laboratory Tests 03/21/22 04/01/22 04/01/22 13:43 13:00 13:00 WBC Hgb Hct Plt Count Sodium Potassium Chloride Carbon Dioxide BUN Creatinine 1.41 H Glucose B-Natriuretic Peptide 572 H Albumin 3.7 TSH 2.516 04/02/22 04/02/22 06:05 06:05 WBC 9.80 Hgb 10.2 L Hct 31.2 L Plt Count 163 Sodium 137 Potassium 3.1 L Chloride 93 L Carbon Dioxide 37 H BUN 28 H Creatinine 1.31 Glucose 108 H B-Natriuretic Peptide Albumin TSH PG Care Time/CCT Total # of Minutes Spent Total Time Spent with Patient: Total time spent is greater than 50% in coordination of care (as documented) at patient's floor/unit and/or counseling patient: Coding Level of Care Code 08978 Inpt Consult Level 5 Diagnoses Chronic kidney disease, stage 3a N18.31 Peripheral edema R60.9 Right heart failure I50.810
[2022-04-02] MEDS ORDERED: BUMETANIDE 4 MG in SYRINGE 0 ML IV SCH (09:00)
[2022-04-02] MEDS: FUROSEMIDE 10 MG/ML 10 ML VIAL IV SCH ×3 (09:06→20:04)
--- NOTE | 2022-04-02 14:01 | Procedure Note ---
Procedure Note Date of Service April 02, 2022 Note Called to assist with catheter placement as the patient has significant scrotal edema/lymphedema Previous attempts at catheterization were not successful. After evaluation he was sterilely prepped and draped in standard fashion. A 16 [place] catheter was guided into the opening in the scrotum or I could palpate the glans several inches below the skin surface. I was able to gently guide the catheter into the meatus and advanced into the bladder. Balloon was inflated with 10 cc of sterile water and clear urine was returned. He tolerated the procedure well. There were no complications. Okay to remove catheter as soon as deemed medically stable. Coding
--- NOTE | 2022-04-02 21:00 | Hospitalist Progress Note ---
Date of Service April 02, 2022 Assessment & Plan (1) Anasarca: Plan: - Presents with nearly 2 months of worsening edema, on bilateral lower extremities, scrotum, and abdomen. With pulmonary edema on CXR. With elevated proBNP - Echo in Dec 2021: EF 60-65% with borderline LVH, no regional wall motion abnormalities, LV function normal. Mild tricuspid regurg. Acute on chronic diastolic CHF - Follows with nephrology, home diuretic regimen consists of 4 mg Bumex twice daily plus metolazone 5 mg daily. -Give metolazone 30 minutes prior to a.m. Bumex dose. - Received 4 mg IV Bumex x1 in ED, will give one more dose this evening and continue this twice daily for now. - Nephrology consulted, appreciate their recommendations. - Vela catheter attempted to be placed in ED, however due to scrotal edema could not be done. Urology will be consulted for placement. - Strict I/Os, daily weights, sodium and 1.5 fluid restriction. Elevate legs. - Dry weight on discharge 2 months ago was 250 pounds. Documented weight at nephrology visit on 03/14 was 299 lbs. Weight documented today in ED is 327 lbs. - Patient is now on lasix 40 mg IV TID -NET NEGATIVE :2.5 (2) Hypokalemia: Plan: - 3.1 -will continue to replenish (3) Hypomagnesemia: Plan: - 1.4 in ED, replete and check labs in AM. (4) Chronic kidney disease, stage 3a: Plan: - Baseline creatinine 1.3, is 1.41 today. - Nephrology consulted as above. - On KCl 40 mEq TID. Received 40 mEq x2 on admission, follow on BMP in AM. - Avoid nephrotoxic agents, renally dose medications as able. (5) Hypertension: Plan: - Continue metoprolol 50mg BID. (6) Hypothyroidism: Plan: - Continue levothyroxine 137 mcg daily. - TSH 2.56 in February. (7) S/P ablation of atrial fibrillation: Plan: - Previously underwent ablation and is currently in sinus rhythm. - Continue metoprolol succinate 50mg PO BID. - Not on DOAC due to history of significant GI bleed requiring hospitalization and over 5 units of blood for stabilization. (8) CML (chronic myelocytic leukemia): Plan: - Diagnosed with CML in 2010; not currently on medical therapy. - Was previously on oral chemotherapy, however d/c'd as patient is in remission and it was thought hat it may have been contributing to his edema. 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 - Has lymphedema pumps. (10) GERD (gastroesophageal reflux disease): Plan: - Continue Pepcid 20mg BID. (11) Venous ulcers of both lower extremities: Plan: - Follows with wound care. Plan: - Admit to med/tele. - SCDs, lovenox for DVT ppx. - Full code. Admission and Anticipated Discharge Date Admission Date: April 01, 2022 Subjective Patient reports no new symptoms Review of Systems Review of Systems: All systems reviewed & are unremarkable except as noted in HPI & below Physical Exam Physical Exam: General: awake, alert, no apparent distress, on RA Head: Normocephalic, atraumatic ENT: PERRL, EOMI, no pharyngeal exudate, mucous membranes moist Chest: Clear to auscultation, on room air, no adventitious breath sounds Cardiac: Regular rate and rhythm, murmur present, per previous documents this is chronic, normal peripheral pulses, good capillary refill Abdominal: NABS x 4 quadrants, soft, nontender to palpation, no rebound, guarding or tenderness Extremities: b/l LE's edematous with some serosanguineous fluid weeping from skin tears; skin is red, edema to the level of abdomen and involves scrotum; calfs nontender to palpation Psych: Normal mood and affect Neuro: AAO x 3, strength intact bilaterally and rated 5/5, no motor deficits, speech is clear, no peripheral sensory deficits Skin: erythematous LEs findings consistent with PVD; with several areas of serosanguineous fluid leaking from skin due to overwhelming edema Results & Data Results & Data ([facility]) Vital Signs (Past 12 Hours) Vital Signs Temp Pulse Pulse Resp BP Pulse Ox 04/02/22 19:51 36.6 C 77 20 125/69 96 04/02/22 17:03 36.5 C 73 16 125/64 91 04/02/22 15:14 72 04/02/22 11:51 37.0 C 75 16 118/57 L 96 PG Care Time/CCT Total # of Minutes Spent Total Time Spent with Patient: Total time spent is greater than 50% in coordination of care (as documented) at patient's floor/unit and/or counseling patient: Coding Level of Care Code 01059 Subseq Hosp Care Lvl 2 Diagnoses Anasarca R60.1 Hypokalemia E87.6 Hypomagnesemia E83.42 Chronic kidney disease, stage 3a N18.31 Hypertension I10 Hypothyroidism E03.9 S/P ablation of atrial fibrillation Z98.890; Z86.79 CML (chronic myelocytic leukemia) C92.10 H/O lymph node excision Z98.890 GERD (gastroesophageal reflux disease) K21.9 Venous ulcers of both lower extremities I83.019; I83.029; L97.919; L97.929
[2022-04-03] MEDS ORDERED: SPIRONOLACTONE 25 MG TAB PO ONE (01:51)
[2022-04-03] MEDS: LEVOTHYROXINE SODIUM 137 MCG TABLET PO SCH (05:38)
[2022-04-03 06:38] LABS: Hematocrit (blood only) 30.8 % (42-52); Hemoglobin 10.1 g/dL (14.0-18.0); Mean Corpuscular Hemoglobin 33.3 pg (25-34); Mean Corpuscular Hgb Conc 32.8 g/dL (32-36); Mean Corpuscular Volume 101.7 fL (80-100); Mean Platelet Volume 9.8 fL (7.4-10.4); Platelet Count 163 K/uL (130-400); RDW Coefficient of Variation 15.8 % (11.5-14.5); RDW Standard Deviation 59.2 fL (36.4-46.3); Red Blood Count 3.03 M/uL (4.7-6.1); White Blood Count 8.54 K/uL (4.8-10.8)
[2022-04-03 07:06] LABS: Albumin Level 3.5 gm/dl (3.4-5.0); BUN Creatinine Ratio 16.9 (10-20); Bilirubin,Total 2.4 mg/dl (0.2-1.0); Calcium 9.2 mg/dl (8.5-10.1); Creatinine Clr Calc Pharmacy 55.6 ml/min; Est GFR (African American) 45.4 ml/min; Est GFR (Non-African American) 39.2 ml/min; Globulin 3.5 gm/dl (2.5-4.0); Potassium 3.2 mmol/L (3.5-5.1)
--- NOTE | 2022-04-03 07:09 | Electrocardiogram Report ---
Test Reason : Blood Pressure : / mmHG Vent. Rate : 087 BPM Atrial Rate : 087 BPM P-R Int : 200 ms QRS Dur : 128 ms QT Int : 420 ms P-R-T Axes : 070 -72 086 degrees QTc Int : 505 ms Normal sinus rhythm Left axis deviation Right bundle branch block Anteroseptal infarct (cited on or before 05-OCT-2012) Abnormal ECG When compared with ECG of 10-JAN-2022 14:39, No significant change Confirmed by Stanley Cano ([id number] on 04/03/2022 7:09:22 AM Referred By: REFERRED SELF Confirmed By:Stanley Cano
[2022-04-03] MEDS: FUROSEMIDE 10 MG/ML 10 ML VIAL IV SCH ×3 (07:56→20:29)
[2022-04-03] MEDS: CHOLECALCIFEROL 5,000 UNITS 125 MCG TAB PO SCH (07:57)
[2022-04-03] MEDS: FAMOTIDINE 20 MG TAB PO SCH ×2 (07:57→20:29)
[2022-04-03] MEDS: POTASSIUM CHLORIDE CRTAB 20 MEQ TABCR PO SCH ×3 (07:57→20:30)
[2022-04-03] MEDS: allopurinoL 300 MG TAB PO SCH (07:57)
[2022-04-03] MEDS: metOLazone 5 MG TABLET PO SCH (07:58)
[2022-04-03] MEDS: MAGNESIUM OXIDE 400 MG TAB PO SCH (07:58)
--- NOTE | 2022-04-03 08:48 | Nephrology Progress Note ---
Date of Service April 03, 2022 Assessment & Plan (1) Chronic kidney disease, stage 3a: Plan: * CKD stage G3a/A1. Baseline Cr has been 1.5 w/ EGFR 49 cc/min. UPCR has been < 0.2. Renal impairment is due to poor renal perfusion associated w/ R heart failure and microvascular disease * 01/15 CTA of abdomen revealed bilateral cortical atrophy of the kidneys. No hydronephrosis * Serum albumin is wnl. Urinalysis is negative for protein. No evidence of nephrotic syndrome * Monitor PRP (2) Right heart failure: Plan: * 01/21/22 Echocardiogram: LVEF 60 - 65%, no effusion, no significant valvular abnormality * 01/15 CTA of the chest was negative for PE * Patient clinically has RHF w/ preserved LVEF. Unclear whether he has underlying SAM, pulmonary HTN or other cause for RHF (3) Peripheral edema: Plan: * Net 2.7L UO yesterday. Continue Furosemide 100 mg IV q8 hrs. Change back to oral Bumex or Torsemide once volume status improved * Continue Metolazone 5 mg po daily * Monitor UO, PRP * As outpatient, Mr. Bashir would benefit from 24 hour urine collection to measure daily urinary sodium excretion. * Dietitian has provided education on how to achieve a 1500 mg/day NaCl restricted diet. I reviewed her handouts w/ Mr. Bashir this morning. He did report a liberal intake of salt in the past but has been working to cut back. His has been preparing more meals from scratch * Discussed vascular access creation and [employer] w/ patient in detail today. Currently he is responding to IV diuretic therapy. As outpatient he may benefit from AVF creation to serve as access if [employer] becomes necessary Admission and Anticipated Discharge Date Admission Date: April 01, 2022 Subjective Mr. Bashir was evaluated in his hospital room this morning. Urology placed Vela catheter yesterday due to genital edema. Mr. Bashir reports that he is tolerating diuresis without muscle cramping or orthostasis Review of Systems Constitutional: no fever Eyes: no worsening vision Ear, Nose, Mouth, Throat: no problem reported Respiratory: no cough and no dyspnea Cardiovascular: no chest pain Additional Comments: + LE swelling Gastrointestinal: + bloating; no abdominal pain Genitourinary: no dysuria, no urinary hesitancy or no hematuria Musculoskeletal: no back pain Integumentary: no rash Neurologic: no falls, no dizziness and no confusion Physical Exam Constitutional: + morbidly obese Eyes: PERRL, conjunctivae normal, anicteric sclerae ENMT: external ear and nose normal, oropharynx normal Neck: trachea midline, no thyromegaly Respiratory: normal respiratory effort, lungs clear to auscultation Cardiovascular: Rate/Rhythm: regular rate and regular rhythm Extremities: + edema (tense pretibial edema) Gastrointestinal (Abdomen): Inspection/Auscultation: + abdomen distended Percussion/Palpation: abdomen nontender and no guarding Neurologic: awake; not confused Results & Data ([facility]) Vital Signs (Past 12 Hours) Vital Signs Temp Pulse Pulse Resp BP BP Pulse Ox 04/03/22 07:33 36.6 C 67 20 109/61 92 04/03/22 07:13 66 04/03/22 04:05 36.7 C 63 18 105/60 92 04/03/22 00:16 67 04/02/22 22:42 36.7 C 68 20 120/64 94 Laboratory Results Laboratory Tests 04/03/22 04/03/22 06:01 06:01 WBC 8.54 Hgb 10.1 L Hct 30.8 L Plt Count 163 Sodium 139 Potassium 3.2 L Chloride 95 L Carbon Dioxide 37 H BUN 30 H Creatinine 1.78 H D Glucose 104 H Albumin 3.5 PG Care Time/CCT Total # of Minutes Spent Total Time Spent with Patient: Total time spent is greater than 50% in coordination of care (as documented) at patient's floor/unit and/or counseling patient: Coding Level of Care Code 51048 Subseq Hosp Care Lvl 3 Diagnoses Chronic kidney disease, stage 3a N18.31 Right heart failure I50.810 Peripheral edema R60.9
[2022-04-03] MEDS: METOPROLOL SUCC 50MG EXT REL TAB PO SCH ×2 (09:09→20:30)
--- NOTE | 2022-04-03 19:27 | Hospitalist Progress Note ---
Date of Service April 03, 2022 Assessment & Plan (1) Anasarca: Plan: - Presents with nearly 2 months of worsening edema, on bilateral lower extremities, scrotum, and abdomen. With pulmonary edema on CXR. With elevated proBNP - Echo in Dec 2021: EF 60-65% with borderline LVH, no regional wall motion abnormalities, LV function normal. Mild tricuspid regurg. Acute on chronic diastolic CHF - Follows with nephrology, home diuretic regimen consists of 4 mg Bumex twice daily plus metolazone 5 mg daily. -Give metolazone 30 minutes prior to a.m. Bumex dose. - Received 4 mg IV Bumex x1 in ED, will give one more dose this evening and continue this twice daily for now. - Nephrology consulted, appreciate their recommendations. - Vela catheter attempted to be placed in ED, however due to scrotal edema could not be done. Urology will be consulted for placement. - Strict I/Os, daily weights, sodium and 1.5 fluid restriction. Elevate legs. - Dry weight on discharge 2 months ago was 250 pounds. Documented weight at nephrology visit on 03/14 was 299 lbs. Weight documented today in ED is 327 lbs. - Patient is now on lasix 100 mg IV TID -NET NEGATIVE :3.8 liters (2) Hypokalemia: Plan: - 3.2 -will continue to replenish (3) Hypomagnesemia: Plan: - 1.4 in ED, now 1.7 (4) Chronic kidney disease, stage 3a: Plan: Acute kidney injury - Baseline creatinine 1.3, is 1.78 on 04/03. - Nephrology consulted as above. - Avoid nephrotoxic agents, renally dose medications as able. (5) Hypertension: Plan: - Continue metoprolol 50mg BID. (6) Hypothyroidism: Plan: - Continue levothyroxine 137 mcg daily. - TSH 2.56 in February. (7) S/P ablation of atrial fibrillation: Plan: - Previously underwent ablation and is currently in sinus rhythm. - Continue metoprolol succinate 50mg PO BID. - Not on DOAC due to history of significant GI bleed requiring hospitalization and over 5 units of blood for stabilization. (8) CML (chronic myelocytic leukemia): Plan: - Diagnosed with CML in 2010; not currently on medical therapy. - Was previously on oral chemotherapy, however d/c'd as patient is in remission and it was thought hat it may have been contributing to his edema. 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 - Has lymphedema pumps. (10) GERD (gastroesophageal reflux disease): Plan: - Continue Pepcid 20mg BID. (11) Venous ulcers of both lower extremities: Plan: - Follows with wound care. Plan: - Admit to med/tele. - SCDs, lovenox for DVT ppx. - Full code. Admission and Anticipated Discharge Date Admission Date: April 01, 2022 Subjective Patient reports no new symptoms. Review of Systems Review of Systems: All systems reviewed & are unremarkable except as noted in HPI & below Physical Exam Physical Exam: General: awake, alert, no apparent distress, on RA Head: Normocephalic, atraumatic ENT: PERRL, EOMI, no pharyngeal exudate, mucous membranes moist Chest: Clear to auscultation, on room air, no adventitious breath sounds Cardiac: Regular rate and rhythm, murmur present, per previous documents this is chronic, normal peripheral pulses, good capillary refill Abdominal: NABS x 4 quadrants, soft, nontender to palpation, no rebound, guarding or tenderness Extremities: b/l LE's edematous, calfs nontender to palpation Psych: Normal mood and affect Neuro: AAO x 3, strength intact bilaterally and rated 5/5, no motor deficits, speech is clear, no peripheral sensory deficits Skin: erythematous LEs findings consistent with PVD; with several areas of serosanguineous fluid leaking from skin due to overwhelming edema Results & Data Results & Data ([facility]) Vital Signs (Past 12 Hours) Vital Signs Temp Pulse Pulse Resp BP BP Pulse Ox 04/03/22 19:24 36.6 C 61 20 111/58 L 96 04/03/22 14:54 58 L 04/03/22 14:37 36.4 C L 59 L 20 102/62 98 04/03/22 11:14 36.5 C 59 L 18 106/45 L 98 04/03/22 07:33 36.6 C 67 20 109/61 92 PG Care Time/CCT Total # of Minutes Spent Total Time Spent with Patient: Total time spent is greater than 50% in coordination of care (as documented) at patient's floor/unit and/or counseling patient: Coding Level of Care Code 71896 Subseq Hosp Care Lvl 2 Diagnoses Anasarca R60.1 Hypokalemia E87.6 Hypomagnesemia E83.42 Chronic kidney disease, stage 3a N18.31 Hypertension I10 Hypothyroidism E03.9 S/P ablation of atrial fibrillation Z98.890; Z86.79 CML (chronic myelocytic leukemia) C92.10 H/O lymph node excision Z98.890 GERD (gastroesophageal reflux disease) K21.9 Venous ulcers of both lower extremities I83.019; I83.029; L97.919; L97.929
[2022-04-03] MEDS: ENOXAPARIN INJ 40 MG/0.4 ML SYR SQ SCH (20:28)
[2022-04-04] MEDS: LEVOTHYROXINE SODIUM 137 MCG TABLET PO SCH (05:44)
[2022-04-04 08:36] LABS: BUN Creatinine Ratio 17.1 (10-20); Calcium 9.5 mg/dl (8.5-10.1); Creatinine Clr Calc Pharmacy 49.8 ml/min; Est GFR (African American) 39.7 ml/min; Est GFR (Non-African American) 34.2 ml/min; Magnesium 1.7 mg/dl (1.7-2.4); Potassium 3.7 mmol/L (3.5-5.1)
[2022-04-04] MEDS ORDERED: MESALAMINE 0.375 GM PO SCH (09:00)
--- NOTE | 2022-04-04 09:03 | Nephrology Progress Note ---
Date of Service April 04, 2022 Assessment & Plan (1) Chronic kidney disease, stage 3a: Plan: * CKD stage G3a/A1. Baseline Cr has been 1.5 w/ EGFR 49 cc/min. UPCR has been < 0.2. Renal impairment is due to poor renal perfusion associated w/ R heart failure, [place] cirrhosis and microvascular disease * 01/15 CTA of abdomen revealed bilateral cortical atrophy of the kidneys. No hydronephrosis * Serum albumin is wnl. Urinalysis is negative for protein. No evidence of nephrotic syndrome * Monitor PRP. May need to accept worsening renal function in order to adequately diurese and alleviate LE swelling (2) Right heart failure: Plan: * 01/21/22 Echocardiogram: LVEF 60 - 65%, no effusion, no significant valvular abnormality * 01/15 CTA of the chest was negative for PE * Patient clinically has RHF w/ preserved LVEF. Unclear whether he has underlying SAM, pulmonary HTN or other cause for RHF * Consider consultation w/ Cardiology re: assessment of R heart pressure (3) Cirrhosis: Plan: * 01/[address] reveals steatosis and cirrhosis. Cirrhosis is likely on the basis of R heart failure and [place]. * Consider consultation w/ Gastroenterology re: cirrhosis/[place] * Once LE swelling improved will consider transition to combination loop diuretic and aldosterone antagonist (4) Peripheral edema: Plan: * Net 1.1L UO yesterday (cumulative -4L since admission). Weight has improved from 135 to 130kg (286lbs). Patient reports "dry weight" of 113kg (250 lbs) * Continue Furosemide 100 mg IV q8 hrs. Change back to oral Bumex or Torsemide once volume status improved * Increase Metolazone to 5 mg po BID * Monitor UO, PRP * Continue 1500 mg/day NaCl restricted diet. Dietary education has been provided to the patient * As outpatient, Mr. Bashir would benefit from 24 hour urine collection to m easure daily urinary sodium excretion. * Discussed vascular access creation and [employer] w/ patient. Currently he is responding to IV diuretic therapy. As outpatient he may benefit from AVF creation to serve as access if [employer] becomes necessary Admission and Anticipated Discharge Date Admission Date: April 01, 2022 Subjective Mr. Bashir was evaluated in his hospital room this morning. He reports that he is tolerating diuresis without muscle cramping or orthostasis. He still has serosanguineous drainage from his L leg Review of Systems Constitutional: no fever Eyes: no worsening vision Ear, Nose, Mouth, Throat: no problem reported Respiratory: no cough and no dyspnea Cardiovascular: no chest pain Additional Comments: + LE swelling Gastrointestinal: + bloating; no abdominal pain Genitourinary: no dysuria, no urinary hesitancy or no hematuria Musculoskeletal: no back pain Integumentary: no rash Neurologic: no falls, no dizziness and no confusion Physical Exam Constitutional: + morbidly obese Eyes: PERRL, conjunctivae normal, anicteric sclerae ENMT: external ear and nose normal, oropharynx normal Neck: trachea midline, no thyromegaly Respiratory: normal respiratory effort, lungs clear to auscultation Cardiovascular: Rate/Rhythm: regular rate and regular rhythm Extremities: + edema (tense pretibial edema) Gastrointestinal (Abdomen): Inspection/Auscultation: + abdomen distended Percussion/Palpation: abdomen nontender and no guarding Neurologic: awake; not confused Results & Data ([facility]) Vital Signs (Past 12 Hours) Vital Signs Temp Pulse Pulse Resp BP Pulse Ox 04/04/22 06:35 36.4 C L 65 18 108/55 L 94 04/04/22 03:28 36.6 C 60 16 107/61 97 04/03/22 23:21 36.7 C 62 16 104/61 96 04/03/22 22:18 59 L Laboratory Results Laboratory Tests 04/01/22 04/03/22 04/03/22 16:02 06:01 06:01 WBC 8.54 Hgb 10.1 L Hct 30.8 L Plt Count 163 Sodium Potassium Chloride Carbon Dioxide BUN Creatinine Glucose Calcium Magnesium AST 21 ALT 7 Albumin 3.5 Urine Color Yellow Ur Specific [place] 1.007 Urine Protein Negative Urine Glucose (UA) Negative Urine Blood Negative Urine Nitrite Negative Ur Leukocyte Esterase Negative 04/04/22 07:17 WBC Hgb Hct Plt Count Sodium 139 Potassium 3.7 Chloride 96 L Carbon Dioxide 38 H BUN 34 H Creatinine 1.99 H Glucose 96 Calcium 9.5 Magnesium 1.7 AST ALT Albumin Urine Color Ur Specific [place] Urine Protein Urine Glucose (UA) Urine Blood Urine Nitrite Ur Leukocyte Esterase PG Care Time/CCT Total # of Minutes Spent Total Time Spent with Patient: Total time spent is greater than 50% in coordination of care (as documented) at patient's floor/unit and/or counseling patient: Coding Level of Care Code 40677 Subseq Hosp Care Lvl 3 Diagnoses Chronic kidney disease, stage 3a N18.31 Right heart failure I50.810 Peripheral edema R60.9 Cirrhosis K74.60
[2022-04-04] MEDS: POTASSIUM CHLORIDE CRTAB 20 MEQ TABCR PO SCH ×3 (09:31→20:41)
[2022-04-04] MEDS: METOPROLOL SUCC 50MG EXT REL TAB PO SCH ×2 (09:32→20:41)
[2022-04-04] MEDS: allopurinoL 300 MG TAB PO SCH (09:32)
[2022-04-04] MEDS: metOLazone 5 MG TABLET PO SCH ×2 (09:32→20:40)
[2022-04-04] MEDS: CHOLECALCIFEROL 5,000 UNITS 125 MCG TAB PO SCH (09:32)
[2022-04-04] MEDS: MAGNESIUM OXIDE 400 MG TAB PO SCH (09:32)
[2022-04-04] MEDS: FAMOTIDINE 20 MG TAB PO SCH ×2 (09:32→20:42)
[2022-04-04] MEDS: MESALAMINE 0.375 GM PO SCH (09:33)
[2022-04-04] MEDS: FUROSEMIDE 10 MG/ML 10 ML VIAL IV SCH ×4 (09:34→20:42)
--- NOTE | 2022-04-04 10:15 | Gastrointestinal Consultation ---
Date of Consultation April 04, 2022 Assessment & Plan (1) Cirrhosis: MELD 20. Cirrhosis 2/2 [place] & right sided heart-failure. -Trend MELD labs -Continue diuresis per primary team -Obtain abdominal imaging prior to making further recommendations as he has not had this during his admission. Supervising Physician Co-Signing Physician Notes I personally evaluated the patient and agree with the findings as documented by Margarita Merida, PAC Exam: Constitutional: WD/WN, vitals as above General: EOM intact bilaterally Neck: normal visual inspection Respiratory: normal respiratory effort, lungs clear to auscultation Cardiovascular: RRR, no murmur, no edema Gastrointestinal: obese/distended abdomen, stiff, nontender Musculoskeletal: no cyanosis, head normal to inspection Skin: no rashes, warm and dry Neurologic: moves all extremities, no asterixis Psychiatric: A and O x3, euthymic affect CT A/P shows cirrhotic liver. would continue with diuresis as per primary team, 2 g sodium diet History of Present Illness Reason for Consultation: Anasarca, Liver cirrhosis Attending Physician: Juan Rodriguez MD History of Present Illness Patient is a 67 yo male who presents to the 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 Patient was admitted to the hospital in December for the same issue. Despite aggressive diuresis and discharge on home dose of diuretics, he returned with similar symptoms. H/H at baseline 10.1/30.8. INR 1.4. T Bili 2.0. BNP 572. AST/ALT normal. T Bili 2.4. No direct bili obtained. CXR indicated pulmonary vascular congestion and interstitial coarsening suggestive of pulmonary edema. Patient has begun diuresis under the guidance of nephrology. Cardiology has been consulted due to right sided heart failure. No abdominal imaging has been obtained during this admission. No pertinent family history. MELD 20. Allergies Allergy/AdvReac Type Severity Reaction Status Date / Time bee venom protein (honey bee) Allergy Severe DYSPNEA;SWE Verified 03/18/22 16:09 LLING Penicillins Allergy Unknown Verified 03/18/22 16:09 Home Medications Medication Instructions Recorded Confirmed Type epinephrine 0.3 mg/0.3 mL 0.3 mg IM Q10M PRN #2 ea 08/06/21 03/18/22 Rx injection, auto-injector (EpiPen 2-Sb) tadalafil 20 mg tablet 20 mg PO DAILY PRN 08/06/21 03/18/22 History ondansetron 4 mg disintegrating 4 mg PO Q8H PRN 09/05/21 03/18/22 History tablet magnesium oxide 250 mg PO DAILY #30 tab 11/09/21 03/18/22 Rx famotidine 20 mg tablet 20 mg PO BID #60 tab 01/19/22 03/18/22 Rx menthol 0.44 %-zinc oxide 20.6 % 1 applic EXT UD #113 g 01/19/22 03/18/22 Rx topical ointment (Calmoseptine) triamcinolone acetonide 0.1 % 1 applic TOPICAL DAILY PRN #80 g 02/08/22 03/18/22 Rx topical ointment allopurinol 300 mg tablet 300 mg PO DAILY #90 tab 02/15/22 03/18/22 Rx cholecalciferol (vitamin D3) 125 5,000 unit PO QAM #90 tab 02/15/22 03/18/22 Rx mcg (5,000 unit) tablet levothyroxine 137 mcg tablet 137 mcg PO DAILY #90 tab 02/19/22 03/18/22 Rx mesalamine 0.375 gram 1.5 g PO DAILY #90 cap 02/19/22 03/18/22 Rx capsule,extended release 24 hr metoprolol succinate 100 mg 50 mg PO BID #180 tab 02/19/22 03/18/22 Rx tablet,extended release 24 hr bumetanide 2 mg tablet 4 mg PO BID #120 tab 03/29/22 Rx metolazone 5 mg tablet 5 mg PO DAILY #90 tab 03/29/22 Rx potassium chloride 20 mEq 40 meq PO QID tab 03/29/22 History tablet,extended release Patient History Medical History (Updated 04/04/22 @ 09:55 by Hardeep Quintero MD) Acute kidney injury Atrial flutter 10/02/2020: Ablation of typical right atrial isthmus dependent flutter. [facility] Cancer of appendix Chronic kidney disease, stage 3a CML (chronic myelocytic leukemia) GERD (gastroesophageal reflux disease) Hypertension Hypokalemia Hypothyroidism Lymphedema Murmur Paroxysmal A-fib SVT (supraventricular tachycardia) 01/21/2012: Ablation of typical slow fast AVNRT [facility] Trifascicular block Surgical History (Updated 04/01/22 @ 18:01 by Veronica Devine PA-C) H/O hernia repair (12/04/12) H/O laparoscopy H/O left knee surgery H/O lymph node excision H/O right hemicolectomy History of removal of Port-a-Cath Status post ablation of atrial flutter (12/04/12) 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) Family History Grandmother (Paternal) Colorectal cancer Father Myocardial infarction Prostate cancer Denies family history of Ovarian cancer Dementia Breast cancer Social History (Updated 04/02/22 @ 09:46 by Hardeep Quintero MD) Smoking Status: Never smoker Second Hand Exposure: No; Hx Alcohol Use: No Hx Substance Use: No Preferred Language: Slovak Communication Ability: Effective Visual Impairment: Limited Hearing Ability: Normal 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 Beliefs That Will Affect Care: None marital status: Current Living Situation: Spouse 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 How many Children do You have: 2 Feels Safe at Home: Yes Safety Concerns: Feels Safe At This Time Childhood Exposure to Second-Hand Smoke: No Diet Comment: 2000 cc fluid restriction during the past year weight has: increased > 10 lbs Dental Care, Regularly: Yes Physical Activity Frequency: Daily Seatbelt Use: always Sunscreen Use: Yes Assistive Devices: Cane Review of Systems Constitutional: no fever and no chills Respiratory: no cough and no dyspnea Cardiovascular: + edema; no chest pain Gastrointestinal: no abdominal pain Integumentary: no rash Psychiatric: no problem reported Hematologic / Lymphatic: no unexplained weight loss Physical Exam Constitutional: well developed Respiratory: normal respiratory effort Cardiovascular: Rate/Rhythm: regular rate Gastrointestinal (Abdomen): anasarca Musculoskeletal: Head/Neck/Chest: normocephalic Psychiatric: Orientation: alert and oriented x 3 Results & Data ([place]) Vital Signs (Past 12 Hours) Vital Signs Temp Pulse Pulse Resp BP Pulse Ox 05/12/22 06:35 36.4 C L 65 18 108/55 L 94 04/04/22 03:28 36.6 C 60 16 107/61 97 04/03/22 23:21 36.7 C 62 16 104/61 96 04/03/22 22:18 59 L PG Care Time/CCT Total # of Minutes Spent Total Time Spent with Patient: Total time spent is greater than 50% in coordination of care (as documented) at patient's floor/unit and/or counseling patient: Coding Level of Care Code 49003 Initial Inpt Care Lvl 3 Diagnoses Cirrhosis K74.60
--- NOTE | 2022-04-04 11:57 | CT Scan Report ---
ABDOMEN AND PELVIS CT WITHOUT CONTRAST CT DOSE: 1508.42 mGy.cm HISTORY: Anasarca TECHNIQUE: Multiaxial CT images of the abdomen and pelvis were performed without contrast. A dose lo wering technique was utilized adhering to the principles of ALARA. COMPARISON STUDY: Abdomen and pelvis CT 01/10/2022. FINDINGS: Liver: The liver is mildly enlarged and demonstrates heterogeneously diminished attenuation consisten t with steatosis. Nodularity of the surface contour indicates early change of cirrhosis. There is no intrahepatic or ductal dilatation. Mild perihepatic edema persists. Gallbladder: Mild gallbladder wall thickening is nonspecific and likely related to cirrhosis and asci andrea. This remains unchanged. Suspect a punctate gallstone. Spleen: The spleen is enlarged measuring 13.7 cm in length. A calcified granuloma is noted in the spl een. Pancreas: Moderately atrophic and grossly unremarkable. Mild peripancreatic edema and mesenteric ajith a remains unchanged. This is likely due to the patient's diffuse edematous state Adrenal glands: Unremarkable. Kidneys: No hydronephrosis Abdominal vasculature: The abdominal aorta is normal in course and caliber noting moderate to advance d atherosclerotic calcification. Stomach and bowel: No bowel wall thickening or obstruction. There is postoperative change from right hemicolectomy with ileocolic anastomosis. The appendix is surgically absent Peritoneum: The ascites has resolved. No intraperitoneal free air is seen. There are large mesenteric venous collaterals, unchanged. A midline surgical scar is noted. Lymphadenopathy: There are numerous prominent mesenteric lymph nodes, likely on a reactive basis. The re are shotty retroperitoneal lymph nodes. This remains unchanged. Pelvic viscera: Evaluation of the pelvis is significantly degraded by streak artifact from bilateral hip arthroplasties. The prostate gland is not well-visualized due to streak artifact. The bladder is decompressed by Vela catheter. Small foci of gas within the bladder lumen likely due to the catheter ization. Skeletal structures: The skeletal structures are osteopenic. There is mild to moderate lumbosacral sp ondylosis. No lytic or blastic lesions are seen. Bilateral hip arthroplasties are in place. Soft tissues: Moderate body wall edema. This has improved in the interval. IMPRESSION: 1. Moderate body wall edema/anasarca which has improved in the interval. The ascites has also resolve d in the interval. 2. Cirrhotic liver with splenomegaly and multiple mesenteric venous collaterals, unchanged. 3. Additional findings as described above. ACT 112: Negative or not required by law. Electronically signed by: Mario Campbell M.D. 04/04/2022 11:56 AM
--- NOTE | 2022-04-04 14:19 | Hospitalist Progress Note ---
Date of Service April 04, 2022 Assessment & Plan (1) Cirrhosis: Plan: I suspect this is the main cause for his fluid retention given lack of proteinuria and completely normal transthoracic echocardiogram. Concerning is how rapid onset this has occurred from July last year needing large doses of diuretics. Liver cirrhosis was noted on prior CT but previously anasarca has through to be secondary to CHF/CKD. He denies every being told he has liver problems in the past. No prior GI consult or hepatitis panel therefore these were ordered. Possible [place]ST[place] vs prior alcohol use. He has also been on dasatinib for 10 years up until 2 months ago which is known to be hepatotoxic. MELD 20 although suspect this is over-estimate as bilirubin may be elevated from CML (will get LDH in AM) and Cr currently elevated from diuretics causing some intravascular depletion - will repeat INR and bilirubin with AM labs. Plt WNL. (2) Anasarca: Plan: Acute on chronic diastolic CHF - ruled out - suspect anasarca as a result of liver cirrhosis as above Appreciate nephrology management with fluid retention - Vela catheter - Strict I/Os, daily weights, sodium and 1.5 fluid restriction. Elevate legs. - Dry weight on discharge 2 months ago was 250 pounds. Documented weight at nephrology visit on 03/14 was 299 lbs. Weight documented in ED is 327 lbs. - Patient is now on lasix 100 mg IV TID and metolazone 5mg PO BID, will consider adding spironolactone to regimen tomorrow -NET NEGATIVE :4.8 liters (3) Hypokalemia: Plan: - 3.7 -continue to supplement as necessary (4) Hypomagnesemia: Plan: - 1.4 in ED, now 1.7 (5) Chronic kidney disease, stage 3a: Plan: Acute kidney injury - Baseline creatinine 1.3, is 1.99 today however this is similar to his last admission that peaked around 2.2. - continue diuresis as above (6) Hypertension: Plan: - Continue metoprolol 50mg BID. (7) Hypothyroidism: Plan: - Continue levothyroxine 137 mcg daily. - TSH 2.56 in February. (8) S/P ablation of atrial fibrillation: Plan: - Previously underwent ablation and is currently in sinus rhythm. - Continue metoprolol succinate 50mg PO BID. - Not on DOAC due to history of significant GI bleed requiring hospitalization and over 5 units of blood for stabilization. (9) CML (chronic myelocytic leukemia): Plan: - Diagnosed with CML in 2010; not currently on medical therapy. 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 - Has lymphedema pumps. (11) GERD (gastroesophageal reflux disease): Plan: - Continue Pepcid 20mg BID. (12) Venous ulcers of both lower extremities: Plan: - Follows with wound care. Plan: - Continued to med/tele. - SCDs, lovenox for DVT ppx. - Full code. Admission and Anticipated Discharge Date Admission Date: April 01, 2022 Subjective Patient reports fluid retention is much improved since admission. Cr has slowly been getting worse but similar to last admission when it peaked around 2.2. Net negative 1L yesterday but metolazone Reviewed history with the patient and reports sudden worsening of fluid retention when he moved to [place] in July. He denies any change of medications at that time. Updated his over the phone. Review of Systems Review of Systems: All systems reviewed & are unremarkable except as noted in Subjective Physical Exam Constitutional: well developed; no acute distress Respiratory: normal respiratory effort Auscultation: + diminished lung sounds (bibasal posteriorly); no crackles and no wheezes Cardiovascular: Rate/Rhythm: regular rate and regular rhythm Heart Sounds: + murmur (loudest apex, holosystolic 2/6) Extremities: normal capillary refill and + pedal edema (3+ b/l equal) Gastrointestinal (Abdomen): normal bowel sounds, soft, nontender, no hepatosplenomegaly Skin: left lower extremity bandage not removed. chronic venous stasis changes on right leg. Psychiatric: A+Ox3, euthymic affect Results & Data Results & Data ([facility]) Vital Signs (Past 12 Hours) Vital Signs Temp Pulse Resp BP BP Pulse Ox 04/04/22 11:30 36.4 C L 72 18 123/61 98 04/04/22 06:35 36.4 C L 65 18 108/55 L 94 04/04/22 03:28 36.6 C 60 16 107/61 97 PG Care Time/CCT Total # of Minutes Spent Total Time Spent with Patient: Total time spent is greater than 50% in coordination of care (as documented) at patient's floor/unit and/or counseling patient: Coding Level of Care Code 44183 Subseq Hosp Care Lvl 3 Diagnoses Anasarca R60.1 Hypokalemia E87.6 Hypomagnesemia E83.42 Chronic kidney disease, stage 3a N18.31 Hypertension I10 Hypothyroidism E03.9 S/P ablation of atrial fibrillation Z98.890; Z86.79 CML (chronic myelocytic leukemia) C92.10 H/O lymph node excision Z98.890 GERD (gastroesophageal reflux disease) K21.9 Venous ulcers of both lower extremities I83.019; I83.029; L97.919; L97.929 Cirrhosis K74.60
[2022-04-04] MEDS: ENOXAPARIN INJ 40 MG/0.4 ML SYR SQ SCH (20:40)
[2022-04-04] MEDS ORDERED: FUROSEMIDE 10 MG/ML 10 ML VIAL IV SCH (21:00)
[2022-04-05] MEDS: LEVOTHYROXINE SODIUM 137 MCG TABLET PO SCH (06:25)
[2022-04-05 06:41] LABS: Hematocrit (blood only) 32.4 % (42-52); Hemoglobin 10.7 g/dL (14.0-18.0); Mean Corpuscular Hemoglobin 33.4 pg (25-34); Mean Corpuscular Volume 101.3 fL (80-100); Mean Platelet Volume 9.7 fL (7.4-10.4); Platelet Count 169 K/uL (130-400); RDW Standard Deviation 58.5 fL (36.4-46.3); White Blood Count 9.44 K/uL (4.8-10.8)
[2022-04-05 06:50] LABS: INR 1.4 (0.9-1.1); Prothrombin Time 14.2 Seconds (9.0-12.0)
[2022-04-05 07:05] LABS: Albumin Level 3.7 gm/dl (3.4-5.0); Bilirubin Direct 0.8 mg/dl (0-0.2); Bilirubin,Total 2.6 mg/dl (0.2-1.0); Calcium 9.7 mg/dl (8.5-10.1); Creatinine Clr Calc Pharmacy 50.7 ml/min; Est GFR (African American) 40.9 ml/min; Est GFR (Non-African American) 35.3 ml/min; Globulin 3.8 gm/dl (2.5-4.0); Potassium 3.9 mmol/L (3.5-5.1); Total Protein 7.5 gm/dl (6.0-8.3)
[2022-04-05] MEDS: CHOLECALCIFEROL 5,000 UNITS 125 MCG TAB PO SCH (08:33)
[2022-04-05] MEDS: MAGNESIUM OXIDE 400 MG TAB PO SCH (08:33)
[2022-04-05] MEDS: allopurinoL 300 MG TAB PO SCH (08:34)
[2022-04-05] MEDS: METOPROLOL SUCC 50MG EXT REL TAB PO SCH ×2 (08:34→20:07)
[2022-04-05] MEDS: FAMOTIDINE 20 MG TAB PO SCH ×2 (08:34→20:07)
[2022-04-05] MEDS: metOLazone 5 MG TABLET PO SCH (08:36)
[2022-04-05] MEDS: POTASSIUM CHLORIDE CRTAB 20 MEQ TABCR PO SCH (08:36)
[2022-04-05] MEDS: MESALAMINE 0.375 GM PO SCH (08:36)
[2022-04-05] MEDS: FUROSEMIDE 10 MG/ML 10 ML VIAL IV SCH ×3 (08:37→20:08)
--- NOTE | 2022-04-05 08:41 | Nephrology Progress Note ---
Date of Service April 05, 2022 Assessment & Plan (1) Chronic kidney disease, stage 3a: Plan: * CKD stage G3a/A1. Baseline Cr has been 1.5 w/ EGFR 49 cc/min. UPCR has been < 0.2. Renal impairment is due to poor renal perfusion associated w/ R heart failure, [place] cirrhosis and microvascular disease * 01/15 CTA of abdomen revealed bilateral cortical atrophy of the kidneys. No hydronephrosis * Serum albumin is wnl. Urinalysis is negative for protein. No evidence of nephrotic syndrome * Monitor PRP. May need to accept worsening renal function in order to adequately diurese and alleviate LE swelling (2) Right heart failure: Plan: * Prominent heart murmur on physical exam * 01/21/22 Echocardiogram: LVEF 60 - 65%, no effusion, no significant valvular abnormality * 01/15 CTA of the chest was negative for PE * Patient clinically has RHF w/ preserved LVEF. Unclear whether he has underlying SAM, pulmonary HTN or other cause for RHF * Consider consultation w/ Cardiology re: assessment of R heart pressure (3) Cirrhosis: Plan: * 01/[address] reveals steatosis and cirrhosis. Cirrhosis is likely on the basis of R heart failure and H[place]LEST[place]. * Gastroenterology has recommended trending MELD score and image liver * Will transition to Furosemide + Spironolactone today as diuretic regimen (4) Peripheral edema: Plan: * Net 0.3L UO yesterday, 2.8L last shift (cumulative -6.9L since admission). Weight has improved from 135 to 130kg (286lbs). Patient reports "dry weight" of 113kg (250 lbs) * Continue Furosemide 100 mg IV q8 hrs * Will change from Metolazone to Spironolactone 100 mg po qAM * Change from scheduled KCl to PRN dosing * Monitor UO, PRP * Continue 1500 mg/day NaCl restricted diet. Dietary education has been provided to the patient * As outpatient, Mr. Bashir would benefit from 24 hour urine collection to measure daily urinary sodium excretion. 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 Currently he is responding to IV diuretic therapy. As outpatient he may benefit from AVF creation to serve as access if PACKING SHED SUPERVISOR becomes necessary Admission and Anticipated Discharge Date Admission Date: April 01, 2022 Subjective Mr. Bashir was evaluated in his hospital room this morning. He is tolerating diuresis without muscle cramping or orthostasis. He still has serosanguineous drainage from his L leg Review of Systems Constitutional: no fever Eyes: no worsening vision Ear, Nose, Mouth, Throat: no problem reported Respiratory: no cough and no dyspnea Cardiovascular: no chest pain Additional Comments: + LE swelling Gastrointestinal: + bloating; no abdominal pain Genitourinary: no dysuria, no urinary hesitancy or no hematuria Musculoskeletal: no back pain Integumentary: no rash Neurologic: no falls, no dizziness and no confusion Physical Exam Constitutional: + morbidly obese Eyes: PERRL, conjunctivae normal, anicteric sclerae ENMT: external ear and nose normal, oropharynx normal Neck: trachea midline, no thyromegaly Respiratory: normal respiratory effort, lungs clear to auscultation Cardiovascular: Rate/Rhythm: regular rate and regular rhythm Heart Sounds: + murmur Extremities: + edema (tense pretibial edema) Gastrointestinal (Abdomen): Inspection/Auscultation: + abdomen distended Percussion/Palpation: abdomen nontender and no guarding Neurologic: awake; not confused Results & Data ([facility]) Vital Signs (Past 12 Hours) Vital Signs Temp Pulse Pulse Resp BP BP Pulse Ox 04/05/22 07:28 36.9 C 72 16 121/70 93 04/05/22 07:12 78 04/05/22 06:21 36.8 C 78 16 132/81 92 04/05/22 03:52 36.6 C 62 18 119/59 L 97 04/05/22 01:32 77 04/04/22 23:12 36.5 C 68 18 117/64 95 Laboratory Results Laboratory Tests 04/05/22 04/05/22 06:23 06:23 WBC 9.44 Hgb 10.7 L Hct 32.4 L Plt Count 169 Sodium 140 Potassium 3.9 Chloride 95 L Carbon Dioxide 38 H BUN 35 H Creatinine 1.94 H Glucose 98 PG Care Time/CCT Total # of Minutes Spent Total Time Spent with Patient: Total time spent is greater than 50% in coordination of care (as documented) at patient's floor/unit and/or counseling patient: Coding Level of Care Code 85020 Subseq Hosp Care Lvl 3 Diagnoses Chronic kidney disease, stage 3a N18.31 Right heart failure I50.810 Cirrhosis K74.60 Peripheral edema R60.9
[2022-04-05] MEDS: SPIRONOLACTONE 100 MG TAB PO SCH (11:12)
--- NOTE | 2022-04-05 19:26 | Hospitalist Progress Note ---
Date of Service April 05, 2022 Assessment & Plan (1) Cirrhosis: Plan: I suspect this is the main cause for his fluid retention given lack of proteinuria and completely normal transthoracic echocardiogram. Concerning is how rapid onset this has occurred from July last year needing large doses of diuretics. Liver cirrhosis was noted on prior CT but previously anasarca has through to be secondary to CHF/CKD. He denies every being told he has liver problems in the past. Appreciate GI consult. Ascites improved on recent CT Possible [place] vs prior alcohol use. He has also been on dasatinib for 10 years up until 2 months ago which is known to be hepatotoxic. Hepatitis panel pending. MELD 20 [04/04] although suspect this is over-estimate as Cr currently elevated from diuretics - INR 1.4 and bilirubin 2.6. Plt WNL. (2) Anasarca: Plan: Acute on chronic diastolic CHF - ruled out - suspect anasarca as a result of liver cirrhosis as above Appreciate nephrology management with fluid retention - Vela catheter - Strict I/Os, daily weights, sodium and 1.5 fluid restriction. Elevate legs. - Dry weight on discharge 2 months ago was 250 pounds. Documented weight at nephrology visit on 03/14 was 299 lbs. Weight documented in ED is 327 lbs. - Continue Lasix 100 mg IV TID and metolazone switched to spironolactone 100mg PO daily per nephrology. - TOTAL NET NEGATIVE: 8.1 liters (3) Hypokalemia: Plan: - 3.7 -continue to supplement as necessary. Starting on spironolactone today. (4) Hypomagnesemia: Plan: - 1.4 in ED, now 1.7 (5) Chronic kidney disease, stage 3a: Plan: Acute kidney injury - Baseline creatinine 1.3, is 1.99 today however this is similar to his last admission that peaked around 2.2. - continue diuresis as above (6) Hypertension: Plan: - Continue metoprolol 50mg BID. (7) Hypothyroidism: Plan: - Continue levothyroxine 137 mcg daily. - TSH 2.56 in February. (8) S/P ablation of atrial fibrillation: Plan: - Previously underwent ablation and is currently in sinus rhythm. - Continue metoprolol succinate 50mg PO BID. - Not on DOAC due to history of significant GI bleed requiring hospitalization and over 5 units of blood for stabilization. (9) CML (chronic myelocytic leukemia): Plan: - Diagnosed with CML in 2010; not currently on medical therapy. 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 - Has lymphedema pumps. (11) GERD (gastroesophageal reflux disease): Plan: - Continue Pepcid 20mg BID. (12) Venous ulcers of both lower extremities: Plan: - Follows with wound care. Plan: - Continued to med/tele. - SCDs, lovenox for DVT ppx. - Full code. Admission and Anticipated Discharge Date Admission Date: April 01, 2022 Subjective Continued serosanguineous drainage from left leg (no pus) without definitive cellulitis. No fluctuent fluid collection. No fever or chills. Reports feeling improved every day as significantly losing water weight. No chest pain, shortness of breath or leg cramps. Review of Systems Review of Systems: All systems reviewed & are unremarkable except as noted in Subjective Physical Exam Constitutional: well developed; no acute distress Respiratory: normal respiratory effort Auscultation: + diminished lung sounds (bibasal posteriorly); no crackles and no wheezes Cardiovascular: Rate/Rhythm: regular rate and regular rhythm Heart Sounds: + murmur (loudest apex, holosystolic 2/6) Extremities: normal capillary refill and + pedal edema (3+ b/l equal) Gastrointestinal (Abdomen): normal bowel sounds, soft, nontender, no hep atosplenomegaly Psychiatric: A+Ox3, euthymic affect Results & Data Results & Data ([facility]) Vital Signs (Past 12 Hours) Vital Signs Temp Pulse Resp BP Pulse Ox 04/05/22 18:39 36.8 C 74 16 120/67 94 04/05/22 15:09 36.9 C 71 16 130/67 94 04/05/22 07:28 36.9 C 72 16 121/70 93 PG Care Time/CCT Total # of Minutes Spent Total Time Spent with Patient: Total time spent is greater than 50% in coordination of care (as documented) at patient's floor/unit and/or counseling patient: Coding Level of Care Code 96652 Subseq Hosp Care Lvl 2 Diagnoses Cirrhosis K74.60 Anasarca R60.1 Hypokalemia E87.6 Hypomagnesemia E83.42 Chronic kidney disease, stage 3a N18.31 Hypertension I10 Hypothyroidism E03.9 S/P ablation of atrial fibrillation Z98.890; Z86.79 CML (chronic myelocytic leukemia) C92.10 H/O lymph node excision Z98.890 GERD (gastroesophageal reflux disease) K21.9 Venous ulcers of both lower extremities I83.019; I83.029; L97.919; L97.929
[2022-04-05] MEDS: ENOXAPARIN INJ 40 MG/0.4 ML SYR SQ SCH (20:06)
[2022-04-06] MEDS: LEVOTHYROXINE SODIUM 137 MCG TABLET PO SCH (05:53)
[2022-04-06 05:57] LABS: Hematocrit (blood only) 31.1 % (42-52); Hemoglobin 10.2 g/dL (14.0-18.0); Mean Corpuscular Hemoglobin 33.1 pg (25-34); Mean Corpuscular Hgb Conc 32.8 g/dL (32-36); Mean Platelet Volume 9.9 fL (7.4-10.4); Platelet Count 163 K/uL (130-400); RDW Standard Deviation 57.6 fL (36.4-46.3); Red Blood Count 3.08 M/uL (4.7-6.1); White Blood Count 8.82 K/uL (4.8-10.8)
[2022-04-06 06:09] LABS: Albumin Level 3.7 gm/dl (3.4-5.0); Bilirubin,Total 2.9 mg/dl (0.2-1.0); Calcium 9.8 mg/dl (8.5-10.1); Creatinine Clr Calc Pharmacy 50.7 ml/min; Est GFR (African American) 40.9 ml/min; Est GFR (Non-African American) 35.3 ml/min; Globulin 3.6 gm/dl (2.5-4.0); Potassium 3.7 mmol/L (3.5-5.1); Total Protein 7.3 gm/dl (6.0-8.3)
[2022-04-06] MEDS: MESALAMINE 0.375 GM PO SCH (07:50)
[2022-04-06] MEDS: FUROSEMIDE 10 MG/ML 10 ML VIAL IV SCH ×3 (07:50→20:42)
[2022-04-06] MEDS: SPIRONOLACTONE 100 MG TAB PO SCH (07:50)
[2022-04-06] MEDS: CHOLECALCIFEROL 5,000 UNITS 125 MCG TAB PO SCH (07:51)
[2022-04-06] MEDS: METOPROLOL SUCC 50MG EXT REL TAB PO SCH ×2 (07:51→20:42)
[2022-04-06] MEDS: FAMOTIDINE 20 MG TAB PO SCH ×2 (07:51→20:42)
[2022-04-06] MEDS: allopurinoL 300 MG TAB PO SCH (07:51)
[2022-04-06] MEDS: MAGNESIUM OXIDE 400 MG TAB PO SCH (07:51)
--- NOTE | 2022-04-06 09:32 | Nephrology Progress Note ---
Date of Service April 06, 2022 Assessment & Plan (1) Chronic kidney disease, stage 3a: Plan: * CKD stage G3a/A1. Baseline Cr has been 1.5 w/ EGFR 49 cc/min. UPCR has been < 0.2. Renal impairment is due to poor renal perfusion associated w/ R heart failure, [place] cirrhosis and microvascular disease * 01/15 CTA of abdomen revealed bilateral cortical atrophy of the kidneys. No hydronephrosis * Serum albumin is wnl. Urinalysis is negative for protein. No evidence of nephrotic syndrome * Monitor PRP. May need to accept worsening renal function in order to adequately diurese and alleviate LE swelling (2) Right heart failure: Plan: * Prominent heart murmur on physical exam * 01/21/22 Echocardiogram: LVEF 60 - 65%, no effusion, no significant valvular abnormality * 01/15 CTA of the chest was negative for PE * Patient clinically has RHF w/ preserved LVEF. (3) Cirrhosis: Plan: * 01/[address] reveals steatosis and cirrhosis. Cirrhosis is likely on the basis of R heart failure and H[place]. * Transitioned to Furosemide + Spironolactone yesterday as diuretic regimen (4) Peripheral edema: Plan: * Neg 3.2L in past 24 hrs (cumulative -10+L since admission). Weight has improved from 129.9 to 127.5 kg. Patient reports "dry weight" of 113kg (250 lbs) * Continue Furosemide 100 mg IV q8 hrs * Continue Spironolactone 100 mg po qAM * Restart KCl 10 mEq daily with added PRN * Monitor UO, PRP * Continue 1500 mg/day NaCl restricted diet. Dietary education has been provided to the patient * As outpatient, Mr. Bashir would benefit from 24 hour urine collection to measure daily urinary sodium excretion. * Discussed vascular access creation and PRESSER FIRST w/ patient. Currently he is responding to IV diuretic therapy. As outpatient he may benefit from AVF creation to serve as access if PRESSER FIRST becomes necessary Admission and Anticipated Discharge Date Admission Date: April 01, 2022 Subjective No acute events overnight. Overall, Mr. Bashir feels well. No noticeable change in lower extremity edema. Weeping fluid from LLE persists. Denies pain. No fevers or chills. No dyspnea. Tolerating diuresis well. Review of Systems Review of Systems: All systems reviewed & are unremarkable except as noted in HPI & below Physical Exam Constitutional: + morbidly obese; no acute distress Eyes: PERRL, conjunctivae normal, anicteric sclerae ENMT: external ear and nose normal, oropharynx normal Neck: trachea midline, no thyromegaly Respiratory: normal respiratory effort, lungs clear to auscultation Cardiovascular: Rate/Rhythm: regular rate and regular rhythm Heart Sounds: + murmur Extremities: + edema (tense +4 BL edema) Gastrointestinal (Abdomen): Inspection/Auscultation: + abdomen distended Percussion/Palpation: abdomen nontender and no guarding Neurologic: awake; not confused Results & Data ([facility]) Vital Signs (Past 12 Hours) Vital Signs Temp Pulse Pulse Resp BP BP Pulse Ox 04/06/22 07:10 70 04/06/22 06:39 37.1 C 74 16 120/55 L 92 04/06/22 03:08 36.7 C 70 18 102/57 L 94 04/05/22 23:05 36.9 C 74 18 115/60 93 04/05/22 22:59 74 Laboratory Results Laboratory Results - last 24 hr 04/06/22 04/06/22 05:36 05:36 WBC 8.82 RBC 3.08 L Hgb 10.2 L Hct 31.1 L MCV 101.0 H MCH 33.1 MCHC 32.8 RDW Std Deviation 57.6 H RDW Coeff of Howie 16.0 H Plt Count 163 MPV 9.9 Sodium 136 Potassium 3.7 Chloride 93 L Carbon Dioxide 34 H Anion Gap 9 BUN 35 H Creatinine 1.94 H Est Cr Clr Drug Dosing 50.7 Est GFR ( Amer) 40.9 Est GFR (Non-Af Amer) 35.3 BUN/Creatinine Ratio 18.0 Glucose 103 H Calcium 9.8 Total Bilirubin 2.9 H AST 23 ALT 7 Alkaline Phosphatase 71 Total Protein 7.3 Albumin 3.7 Globulin 3.6 Albumin/Globulin Ratio 1.0 PG Care Time/CCT Total # of Minutes Spent Total Time Spent with Patient: Total time spent is greater than 50% in coordination of care (as documented) at patient's floor/unit and/or counseling patient: Coding Level of Care Code 50823 Subseq Hosp Care Lvl 3 Diagnoses Chronic kidney disease, stage 3a N18.31 Right heart failure I50.810 Cirrhosis K74.60 Peripheral edema R60.9
[2022-04-06] MEDS: POTASSIUM CHLORIDE 10 MEQ TABCR PO SCH (11:08)
--- NOTE | 2022-04-06 14:22 | Hospitalist Progress Note ---
Date of Service April 06, 2022 Assessment & Plan (1) Cirrhosis: Plan: - Suspected as cause of fluid retention given lack of proteinuria and completely Echo preserved EF with grade 2 diastolic dysfunction and no valvular abnormalities on TTE. Clinically with diastolic right heart failure with preserved ejection fraction - Liver cirrhosis was noted on prior CT but previously anasarca has through to be secondary to CHF/CKD. - He denies being told he has liver problems in the past. - Appreciate GI consult. Ascites improved on recent CT - Possible [place] vs prior alcohol use. He has also been on dasatinib for 10 years up until 2 months ago which is known to be hepatotoxic. Hepatitis panel pending. - MELD 20 [04/04] suspect this is over-estimate as Cr currently elevated from diuretics - INR 1.4 and bilirubin 2.6. Plt WNL. (2) Anasarca: Plan: Acute on chronic diastolic CHF - ruled out - suspect anasarca as a result of liver cirrhosis as above Appreciate nephrology management with fluid retention - Vela catheter - Strict I/Os, daily weights, sodium and 1.5 fluid restriction. Elevate legs. - Dry weight on discharge 2 months ago was 250 pounds. Documented weight at n ephrology visit on 03/14 was 299 lbs. Weight documented in ED is 327 lbs. - Continue Lasix 100 mg IV TID and metolazone switched to spironolactone 100mg PO daily per nephrology. -04/06: Net daily balance 3 L down, creatinine tolerating. Daily standing weight 127.5 kg (280 pounds). Continue furosemide and Aldactone. Elevated creatinine from baseline, but stable with diuresis (3) Hypokalemia: Plan: 3.7, trend (4) Hypomagnesemia: Plan: - Pleated, repeat pending (5) Chronic kidney disease, stage 3a: Plan: Acute kidney injury Baseline appears around 1.31.5 Creatinine is elevated to 1.94, but remains stable with diuresis and obvious volume overload Nephrology consulted, have discussed vascular access/FRIT MIXER and potential referral as outpatient for aVF. No acute indication for dialysis at this time (6) Hypertension: Plan: - Continue metoprolol 50mg BID. (7) Hypothyroidism: Plan: - Continue levothyroxine 137 mcg daily. - TSH 2.56 in February. (8) S/P ablation of atrial fibrillation: Plan: - Previously underwent ablation and is currently in sinus rhythm. - Continue metoprolol succinate 50mg PO BID. - Not on DOAC due to history of significant GI bleed requiring hospitalization and over 5 units of blood for stabilization. (9) CML (chronic myelocytic leukemia): Plan: - Diagnosed with CML in 2010; not currently on medical therapy. 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 - Has lymphedema pumps. (11) GERD (gastroesophageal reflux disease): Plan: - Continue Pepcid 20mg BID. (12) Venous ulcers of both lower extremities: Plan: - Follows with wound care. Plan: - Continued to med/tele. - SCDs, lovenox for DVT ppx. - Full code. Admission and Anticipated Discharge Date Admission Date: April 01, 2022 Subjective Seen at bedside. Feels his legs are improving slowly. No lightheadedness, dizziness, shortness of breath, cough. no ab pain. No fevers/chills/sweats. Has had vigorous urine output into his Vela without pain. Review of Systems Review of Systems: All systems reviewed & are unremarkable except as noted in Subjective Physical Exam Physical Exam: General: A&Ox3. NAD. Cooperative. HEENT: Atraumatic, normocephalic. Vision/hearing grossly intact Pulm: CTAB A&P. -wheezes, -rales, -rhonchi. Symmetrical chest rise. No increased work of breathing. No respiratory distress. Cardiac: RRR, +SM. Radial pulses intact and symmetrical. Abdominal: NT, distended, soft. BS present. Ext: Diffuse pitting edema/anasarca though the legs Results & Data Results & Data ([facility]) Vital Signs (Past 12 Hours) Vital Signs Temp Pulse Pulse Resp BP BP Pulse Ox 04/06/22 11:00 37.0 C 75 18 125/66 96 04/06/22 07:10 70 04/06/22 06:39 37.1 C 74 16 120/55 L 92 04/06/22 03:08 36.7 C 70 18 102/57 L 94 PG Care Time/CCT Total # of Minutes Spent Total Time Spent with Patient: Total time spent is greater than 50% in coordination of care (as documented) at patient's floor/unit and/or counseling patient: Coding Level of Care Code 42780 Subseq Hosp Care Lvl 2 Diagnoses Cirrhosis K74.60 Anasarca R60.1 Hypokalemia E87.6 Hypomagnesemia E83.42 Chronic kidney disease, stage 3a N18.31 Hypertension I10 Hypothyroidism E03.9 S/P ablation of atrial fibrillation Z98.890; Z86.79 CML (chronic myelocytic leukemia) C92.10 H/O lymph node excision Z98.890 GERD (gastroesophageal reflux disease) K21.9 Venous ulcers of both lower extremities I83.019; I83.029; L97.919; L97.929
[2022-04-06] MEDS: ENOXAPARIN INJ 40 MG/0.4 ML SYR SQ SCH (20:41)
[2022-04-06] MEDS: POLYETHYLENE (MIRALAX) 17 GM PACK PO PRN (21:11)
[2022-04-07] MEDS: LEVOTHYROXINE SODIUM 137 MCG TABLET PO SCH (05:40)
[2022-04-07 06:07] LABS: HBSAG NON-REACTIVE (NON-REACTIVE); Hepatitis A Antibody IgM NON-REACTIVE (NON-REACTIVE); Hepatitis B Core Antibody IgM NON-REACTIVE (NON-REACTIVE)
[2022-04-07] MEDS: FAMOTIDINE 20 MG TAB PO SCH ×2 (07:37→20:22)
[2022-04-07] MEDS: CHOLECALCIFEROL 5,000 UNITS 125 MCG TAB PO SCH (07:37)
[2022-04-07] MEDS: MAGNESIUM OXIDE 400 MG TAB PO SCH (07:37)
[2022-04-07] MEDS: METOPROLOL SUCC 50MG EXT REL TAB PO SCH ×2 (07:37→20:22)
[2022-04-07] MEDS: POTASSIUM CHLORIDE 10 MEQ TABCR PO SCH (07:38)
[2022-04-07] MEDS: SPIRONOLACTONE 100 MG TAB PO SCH (07:38)
[2022-04-07] MEDS: allopurinoL 300 MG TAB PO SCH (07:38)
[2022-04-07] MEDS: FUROSEMIDE 10 MG/ML 10 ML VIAL IV SCH ×3 (07:38→20:23)
[2022-04-07] MEDS: MESALAMINE 0.375 GM PO SCH (07:39)
[2022-04-07 07:42] LABS: Albumin Level 3.7 gm/dl (3.4-5.0); BUN Creatinine Ratio 19.8 (10-20); Bilirubin,Total 2.8 mg/dl (0.2-1.0); Calcium 9.8 mg/dl (8.5-10.1); Creatinine Clr Calc Pharmacy 51.5 ml/min; Est GFR (African American) 42.8 ml/min; Est GFR (Non-African American) 36.9 ml/min; Globulin 3.6 gm/dl (2.5-4.0); Potassium 3.6 mmol/L (3.5-5.1); Total Protein 7.3 gm/dl (6.0-8.3)
--- NOTE | 2022-04-07 10:42 | Nephrology Progress Note ---
Date of Service April 07, 2022 Assessment & Plan (1) Chronic kidney disease, stage 3a: Plan: * CKD stage G3a/A1. Baseline Cr has been 1.5 w/ EGFR 49 cc/min. UPCR has been < 0.2. Renal impairment is due to poor renal perfusion associated w/ R heart failure, [place] cirrhosis and microvascular disease * 01/15 CTA of abdomen revealed bilateral cortical atrophy of the kidneys. No hydronephrosis * Serum albumin is wnl. Urinalysis is negative for protein. No evidence of nephrotic syndrome * Monitor PRP. (2) Right heart failure: Plan: * 01/21/22 Echocardiogram: LVEF 60 - 65%, no effusion, no significant valvular abnormality * 01/15 CTA of the chest was negative for PE (3) Cirrhosis: Plan: * 01/[address] reveals steatosis and cirrhosis. Cirrhosis is likely on the basis of R heart failure and [place]. (4) Peripheral edema: Plan: * Neg 2.67 L in past 24 hrs (cumulative -12+L since admission). Weight has improved from 127.5 to 125.2 kg in past 24 hours. Patient reports "dry weight" of 113kg (250 lbs) * Continue Furosemide 100 mg IV q8 hrs * Continue Spironolactone 100 mg po qAM * Continue KCl 10 mEq daily * Monitor UO, PRP * Continue 1500 mg/day NaCl restricted diet. Dietary education has been provided to the patient * Discussed vascular access creation and NEUROLOGY PROFESSOR w/ patient. Currently he is responding to IV diuretic therapy. As outpatient he may benefit from AVF creation to serve as access if NEUROLOGY PROFESSOR becomes necessary Admission and Anticipated Discharge Date Admission Date: April 01, 2022 Subjective No acute events overnight. Mr. Bashir was resting comfortably in his bedside chair today. Vela remains intake. Continued significant diuresis. Unable to keep feet elevated. Mr. Bashir does think there has been continued improvement. Review of Systems Review of Systems: All systems reviewed & are unremarkable except as noted in HPI & below Physical Exam Constitutional: + morbidly obese; no acute distress Eyes: PERRL, conjunctivae normal, anicteric sclerae ENMT: external ear and nose normal, oropharynx normal Neck: trachea midline, no thyromegaly Respiratory: normal respiratory effort, lungs clear to auscultation Cardiovascular: Rate/Rhythm: regular rate and regular rhythm Heart Sounds: + murmur Extremities: + edema (tense +4 BL edema) Gastrointestinal (Abdomen): Inspection/Auscultation: + abdomen distended Percussion/Palpation: abdomen nontender and no guarding Neurologic: awake; not confused Results & Data ([place]) Vital Signs (Past 12 Hours) Vital Signs Temp Pulse Pulse Resp BP Pulse Ox 04/07/22 07:53 36.8 C 67 16 116/61 94 04/07/22 07:11 63 04/07/22 03:35 36.9 C 71 18 110/56 L 93 04/07/22 01:40 74 04/06/22 23:35 36.8 C 72 18 115/57 L 95 Laboratory Results Laboratory Results - last 24 hr 04/05/22 04/07/22 06:23 06:51 Sodium 136 Potassium 3.6 Chloride 92 L Carbon Dioxide 38 H Anion Gap 6 BUN 37 H Creatinine 1.87 H Est Cr Clr Drug Dosing 51.5 Est GFR ( Amer) 42.8 Est GFR (Non-Af Amer) 36.9 BUN/Creatinine Ratio 19.8 Glucose 105 H Calcium 9.8 Total Bilirubin 2.8 H AST 25 ALT 8 Alkaline Phosphatase 70 Total Protein 7.3 Albumin 3.7 Globulin 3.6 Albumin/Globulin Ratio 1.0 Hepatitis A IgM Ab NON-REACTIVE Hep Bs Antigen NON-REACTIVE Hep Bs Ag Confirmation TNP Hep B Core IgM Ab NON-REACTIVE Hepatitis C Ab (EIA) NON-REACTIVE Hep C Ab Signal/Cutoff 0.60 PG Care Time/CCT Total # of Minutes Spent Total Time Spent with Patient: Total time spent is greater than 50% in coordination of care (as documented) at patient's floor/unit and/or counseling patient: Coding Level of Care Code 73773 Subseq Hosp Care Lvl 3 Diagnoses Chronic kidney disease, stage 3a N18.31 Right heart failure I50.810 Cirrhosis K74.60 Peripheral edema R60.9
--- NOTE | 2022-04-07 12:32 | Hospitalist Progress Note ---
Date of Service April 07, 2022 Assessment & Plan (1) Cirrhosis: Plan: - Suspected as cause of fluid retention given lack of proteinuria and completely Echo preserved EF with grade 2 diastolic dysfunction and no valvular abnormalities on TTE. Clinically with diastolic right heart failure with preserved ejection fraction - Liver cirrhosis was noted on prior CT but previously anasarca has through to be secondary to CHF/CKD. - He denies being told he has liver problems in the past. - Appreciate GI consult. Ascites improved on recent CT - Possible [place] vs prior alcohol use. He has also been on dasatinib for 10 years up until 2 months ago which is known to be hepatotoxic. Hepatitis panel pending. - MELD 20 [04/04] suspect this is over-estimate as Cr currently elevated from diuretics - INR 1.4 and bilirubin 2.6. Plt WNL. (2) Anasarca: Plan: Acute on chronic diastolic CHF - ruled out - suspect anasarca as a result of liver cirrhosis as above Appreciate nephrology management with fluid retention - Vela catheter - Strict I/Os, daily weights, sodium and 1.5 fluid restriction. Elevate legs. - Dry weight on discharge 2 months ago was 250 pounds. Documented weight at nephrology visit on 03/14 was 299 lbs. Weight documented in ED is 327 lbs. - Continue Lasix 100 mg IV TID and metolazone switched to spironolactone 100mg PO daily per nephrology. -04/07: Continues to diurese approximately 3-3.5 L net per day, weight downtrending 125.2 kg today continue furosemide and Aldactone. Elevated creatinine from baseline, but stable with diuresis and slightly downtrending. Continues to require IV diuretics and Vela for high-volume diuresis. Patient does feel he is having some clinical improvement in the swelling in his legs as well (3) Hypokalemia: Plan: Replete as needed 3.6 04/07 Daily potassium supplementation increased to 20 M EQ's twice daily given high volume diuresis, decrease if rises above 4 (4) Hypomagnesemia: Plan: - Repleted (5) Chronic kidney disease, stage 3a: Plan: Acute kidney injury Baseline appears around 1.31.5 Creatinine is elevated to 1.94, but remains stable with diuresis and obvious volume overload Nephrology consulted, have discussed vascular access/DATA BASE ADMINISTRATOR and potential referral as outpatient for aVF. No acute indication for dialysis at this time (6) Hypertension: Plan: - Continue metoprolol 50mg BID. (7) Hypothyroidism: Plan: - Continue levothyroxine 137 mcg daily. - TSH 2.56 in February. (8) S/P ablation of atrial fibrillation: Plan: - Previously underwent ablation and is currently in sinus rhythm. - Continue metoprolol succinate 50mg PO BID. - Not on DOAC due to history of significant GI bleed requiring hospitalization and over 5 units of blood for stabilization. (9) CML (chronic myelocytic leukemia): Plan: - Diagnosed with CML in 2010; not currently on medical therapy. 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 - Has lymphedema pumps. (11) GERD (gastroesophageal reflux disease): Plan: - Continue Pepcid 20mg BID. (12) Venous ulcers of both lower extremities: Plan: - Follows with wound care. Plan: - Continued to med/tele. - SCDs, lovenox for DVT ppx. - Full code. Admission and Anticipated Discharge Date Admission Date: April 01, 2022 Subjective It is sitting up in a chair this morning. Reports no acute distress. Denies shortness of breath. He thinks the swelling in his legs is slowly getting better. Has continued to have brisk diuresis net 3 L down today. Denies pain at his Vela and endorses light yellow output into his Vela. No chest pain, chest pressure, fever, chills, sweats. Discussed that he is continuing to have high volume output of around 3 L/day, is progressing towards his suspected dry weight of around 250 pounds. Creatinine is actually improving with diuresis. We will continue Vela diuresis at this time, patient is agreeable and feels that he is slowly improving Review of Systems Review of Systems: All systems reviewed & are unremarkable except as noted in Subjective Physical Exam Physical Exam: General: A&Ox3. NAD. Cooperative. HEENT: Atraumatic, normocephalic. Vision/hearing grossly intact Pulm: CTAB A&P. -wheezes, -rales, -rhonchi. Symmetrical chest rise. No increased work of breathing. No respiratory distress. Cardiac: RRR, +SM. Radial pulses intact and symmetrical. Abdominal: NT, distended, soft. BS present. Ext: Diffuse pitting edema/anasarca though the legs persists. Results & Data Results & Data ([facility]) Vital Signs (Past 12 Hours) Vital Signs Temp Pulse Pulse Resp BP BP Pulse Ox 04/07/22 11:41 36.8 C 72 16 120/63 93 04/07/22 07:53 36.8 C 67 16 116/61 94 04/07/22 07:11 63 04/07/22 03:35 36.9 C 71 18 110/56 L 93 04/07/22 01:40 74 PG Care Time/CCT Total # of Minutes Spent Total Time Spent with Patient: Total time spent is greater than 50% in coordination of care (as documented) at patient's floor/unit and/or counseling patient: Coding Level of Care Code 46853 Subseq Hosp Care Lvl 2 Diagnoses Cirrhosis K74.60 Anasarca R60.1 Hypokalemia E87.6 Hypomagnesemia E83.42 Chronic kidney disease, stage 3a N18.31 Hypertension I10 Hypothyroidism E03.9 S/P ablation of atrial fibrillation Z98.890; Z86.79 CML (chronic myelocytic leukemia) C92.10 H/O lymph node excision Z98.890 GERD (gastroesophageal reflux disease) K21.9 Venous ulcers of both lower extremities I83.019; I83.029; L97.919; L97.929
[2022-04-07] MEDS ORDERED: POTASSIUM CHLORIDE CRTAB 20 MEQ TABCR PO STA (12:40)
[2022-04-07] MEDS: ENOXAPARIN INJ 40 MG/0.4 ML SYR SQ SCH (20:22)
[2022-04-08] MEDS: LEVOTHYROXINE SODIUM 137 MCG TABLET PO SCH (05:19)
[2022-04-08 08:03] LABS: Basophils # (auto) 0.06 K/uL (0-0.2); Basophils % (auto) 0.7 %; Eosinophils % (auto) 8.2 %; Hematocrit (blood only) 31.6 % (42-52); Hemoglobin 10.2 g/dL (14.0-18.0); Immature Granulocytes # (auto) 0.02 K/uL (0.00-0.02); Immature Granulocytes % (auto) 0.2 %; Lymphocytes # (auto) 2.37 K/uL (1.2-3.4); Lymphocytes % (auto) 27.8 %; Mean Corpuscular Hemoglobin 32.3 pg (25-34); Mean Corpuscular Hgb Conc 32.3 g/dL (32-36); Mean Platelet Volume 10.1 fL (7.4-10.4); Monocytes # (auto) 0.86 K/uL (0.11-0.59); Monocytes % (auto) 10.1 %; Neutrophils # (auto) 4.53 K/uL (1.4-6.5); Platelet Count 188 K/uL (130-400); RDW Coefficient of Variation 15.6 % (11.5-14.5); RDW Standard Deviation 56.7 fL (36.4-46.3); Red Blood Count 3.16 M/uL (4.7-6.1); White Blood Count 8.54 K/uL (4.8-10.8)
[2022-04-08] MEDS: POTASSIUM CHLORIDE CRTAB 20 MEQ TABCR PO SCH (08:21)
[2022-04-08] MEDS: SPIRONOLACTONE 100 MG TAB PO SCH (08:21)
[2022-04-08] MEDS: allopurinoL 300 MG TAB PO SCH (08:21)
[2022-04-08] MEDS: CHOLECALCIFEROL 5,000 UNITS 125 MCG TAB PO SCH (08:21)
[2022-04-08] MEDS: MAGNESIUM OXIDE 400 MG TAB PO SCH (08:21)
[2022-04-08] MEDS: FAMOTIDINE 20 MG TAB PO SCH ×2 (08:22→21:14)
[2022-04-08] MEDS: MESALAMINE 0.375 GM PO SCH (08:22)
[2022-04-08] MEDS: FUROSEMIDE 10 MG/ML 10 ML VIAL IV SCH ×2 (08:22→15:36)
[2022-04-08 08:33] LABS: BUN Creatinine Ratio 16.9 (10-20); Calcium 9.7 mg/dl (8.5-10.1); Creatinine Clr Calc Pharmacy 39.6 ml/min; Est GFR (African American) 31.3 ml/min; Magnesium 1.6 mg/dl (1.7-2.4); Potassium 3.9 mmol/L (3.5-5.1)
[2022-04-08] MEDS ORDERED: MAGNESIUM OXIDE 400 MG TAB PO ONE (09:09)
[2022-04-08] MEDS: METOPROLOL SUCC 50MG EXT REL TAB PO SCH ×2 (09:50→21:14)
--- NOTE | 2022-04-08 12:38 | Nephrology Progress Note ---
Date of Service April 08, 2022 Assessment & Plan (1) Acute kidney injury: (2) Chronic kidney disease, stage 3a: (3) Venous ulcers of both lower extremities: (4) Lymphedema: Plan: 67-year-old gentlemen with h/o stage 3A CKD b/l Cr 1.5 to 1.8,, CML, appendiceal CA s/p R hemicolectomy, atrial fibrillation/flutter, hypothyroidism admitted with progressive weight gain, lymphedema, anasarca over last 1 months. he had hospitalization in January with almost 60 lb weight gain since July 2021, eventually was discharge with D L net negative since admission. However since discharge as an outpatient he again continued to gain weight became resistant to oral diuretic. He was admitted a week ago and started on IV Lasix and metolazone with improvement in volume status. Renal function was staying relatively stable until recently when creatinine rapidly increased to 2.3 this morning. Overall volume status improve significantly but continues to have lymphedema. 2D echo showed normal EF, no significant LVH. LFTs were normal. ANNA with metabolic alkalosis. Continues to be net negative, total 30 L. -- continue on current dose of diuretics, Monitor urine output and decide, aim for net even to slightly negative per 24 hours. Monitor renal function el ectrolytes closely. -- limit fluid intake to less than 1.5 L per day, encourage low-salt diet, elevate legs. -- overall he seems to be pretty close to euvolemic although continues to have significant lymphedema which may not improve much despite getting the diuretics. Continue to keep leg elevated and use wraps. --eventually if he fails oral diuretics again, may need to plan for UF. will follow Admission and Anticipated Discharge Date Admission Date: April 01, 2022 Imelda Luciano was seen and evaluated this morning. He feels well, no shortness of breath or chest pain, noticed continued improvement in abdominal edema. Urine output decent with > 2 L net negative last 24 hours. Lab this morning noted for AK with creatinine 2.3, with metabolic alkalosis. There is significant improvement in lymphedema, abdominal wall edema. Review of Systems Review of Systems: Detailed review of system was otherwise unremarkable except mentioned above. Physical Exam Constitutional: WD/WN, vitals as above no acute distress Eyes: + anicteric sclerae Respiratory: no respiratory distress Auscultation: lungs clear to auscultation bilaterally Cardiovascular: Rate/Rhythm: regular rate and regular rhythm Heart Sounds: normal S1 and normal S2 Extremities: + edema Skin: no rashes Neurologic: no focal motor deficits and not confused Psychiatric: Orientation: alert and oriented x 3 Results & Data ([facility]) Vital Signs (Past 12 Hours) Vital Signs Temp Pulse Pulse Resp BP BP Pulse Ox 04/08/22 11:27 36.6 C 61 16 111/58 L 96 04/08/22 10:41 63 04/08/22 09:49 65 111/57 L 04/08/22 08:25 66 106/52 L 04/08/22 07:56 36.7 C 67 16 100/50 L 100 04/08/22 04:31 36.6 C 58 L 18 111/54 L 95 PG Care Time/CCT Total # of Minutes Spent Total Time Spent with Patient: Total time spent is greater than 50% in coordination of care (as documented) at patient's floor/unit and/or counseling patient: Coding Level of Care Code 30844 Subseq Hosp Care Lvl 3 Diagnoses Acute kidney injury N17.9 Chronic kidney disease, stage 3a N18.31 Venous ulcers of both lower extremities I83.019; I83.029; L97.919; L97.929 Lymphedema I89.0
--- NOTE | 2022-04-08 14:52 | Hospitalist Progress Note ---
Date of Service April 08, 2022 Assessment & Plan (1) Cirrhosis: Plan: - Suspected as cause of fluid retention given lack of proteinuria and completely Echo preserved EF with grade 2 diastolic dysfunction and no valvular abnormalities on TTE. Clinically with diastolic right heart failure with preserved ejection fraction - Liver cirrhosis was noted on prior CT but previously anasarca has through to be secondary to CHF/CKD. - He denies being told he has liver problems in the past. - Appreciate GI consult. Ascites improved on recent CT - Possible [place] vs prior alcohol use. He has also been on dasatinib for 10 years up until 2 months ago which is known to be hepatotoxic. Hepatitis panel pending. - MELD 20 [04/04] suspect this is over-estimate as Cr currently elevated from diuretics - INR 1.4 and bilirubin 2.6. Plt WNL. (2) Anasarca: Plan: Acute on chronic diastolic CHF - ruled out - suspect anasarca as a result of liver cirrhosis as above Appreciate nephrology management with fluid retention - Vela catheter - Strict I/Os, daily weights, sodium and 1.5 fluid restriction. Elevate legs. - Dry weight on discharge 2 months ago was 250 pounds. Documented weight at nephrology visit on 03/14 was 299 lbs. Weight documented in ED is 327 lbs. - Continue Lasix 100 mg IV TID and metolazone switched to spironolactone 100mg PO daily per nephrology. Continue leg wraps and elevate -04/07: Continues to diurese approximately 3-3.5 L net per day, weight downtrending 125.2 kg today continue furosemide and Aldactone. Elevated creatinine from baseline, but stable with diuresis and slightly downtrending. Continues to require IV diuretics and Vela for high-volume diuresis. Patient does feel he is having some clinical improvement in the swelling in his legs as well -04/08. Creatinine did bump to 2.4 today, question approaching dry weight or slowing diuresis. Net 24-hour out approximately 1 L. Nephrology following, recommend continuing edema management wrapping/elevation, continuing meds aiming for slightly to net negative over 24 hours. BMP in AM. (3) Hypokalemia: Plan: Replete as needed 3.6 04/07 Potassium 20 M EQ twice daily Potassium 3.95/16 Magnesium decreased to 04/08, oral repletion additional ordered (4) Hypomagnesemia: Plan: - Repleted (5) Chronic kidney disease, stage 3a: Plan: Acute kidney injury Baseline appears around 1.31.5 Nephrology consulted, have discussed vascular access/[employer] and potential referral as outpatient for aVF. No acute indication for dialysis at this time Creatinine bumped 04/08, recommendations as above (6) Hypertension: Plan: - Continue metoprolol 50mg BID. (7) Hypothyroidism: Plan: - Continue levothyroxine 137 mcg daily. - TSH 2.56 in February. (8) S/P ablation of atrial fibrillation: Plan: - Previously underwent ablation and is currently in sinus rhythm. - Continue metoprolol succinate 50mg PO BID. - Not on DOAC due to history of significant GI bleed requiring hospitalization and over 5 units of blood for stabilization. (9) CML (chronic myelocytic leukemia): Plan: - Diagnosed with CML in 2010; not currently on medical therapy. 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 - Has lymphedema pumps. (11) GERD (gastroesophageal reflux disease): Plan: - Continue Pepcid 20mg BID. (12) Venous ulcers of both lower extremities: Plan: - Follows with wound care. Plan: - Continued to med/tele. - SCDs, lovenox for DVT ppx. - Full code. Admission and Anticipated Discharge Date Admission Date: April 01, 2022 Subjective No SoB. No CP. Legs greatly improved. Review of Systems Review of Systems: All systems reviewed & are unremarkable except as noted in Subjective Physical Exam Physical Exam: General:NAD. Cooperative. HEENT: Atraumatic, normocephalic. Pulm: Symmetrical chest rise. No increased work of breathing. No respiratory distress. Abdominal: NT, distended but improving, soft. BS present. Ext: Diffuse pitting edema/anasarca though the legs, improving Results & Data Results & Data ([facility]) Vital Signs (Past 12 Hours) Vital Signs Temp Pulse Pulse Resp BP BP Pulse Ox 04/08/22 11:27 36.6 C 61 16 111/58 L 96 04/08/22 10:41 63 04/08/22 09:49 65 111/57 L 04/08/22 08:25 66 106/52 L 04/08/22 07:56 36.7 C 67 16 100/50 L 100 04/08/22 04:31 36.6 C 58 L 18 111/54 L 95 PG Care Time/CCT Total # of Minutes Spent Total Time Spent with Patient: Total time spent is greater than 50% in coordination of care (as documented) at patient's floor/unit and/or counseling patient: Coding Level of Care Code 22552 Subseq Hosp Care Lvl 1 Diagnoses Cirrhosis K74.60 Anasarca R60.1 Hypokalemia E87.6 Hypomagnesemia E83.42 Chronic kidney disease, stage 3a N18.31 Hypertension I10 Hypothyroidism E03.9 S/P ablation of atrial fibrillation Z98.890; Z86.79 CML (chronic myelocytic leukemia) C92.10 H/O lymph node excision Z98.890 GERD (gastroesophageal reflux disease) K21.9 Venous ulcers of both lower extremities I83.019; I83.029; L97.919; L97.929
[2022-04-08] MEDS ORDERED: MAGNESIUM HYDROXIDE SUSP 30 ML UDC PO PRN (15:39)
[2022-04-08] MEDS: POLYETHYLENE (MIRALAX) 17 GM PACK PO PRN (16:37)
[2022-04-08] MEDS: BUMETANIDE 1 MG TAB PO SCH (16:38)
[2022-04-08] MEDS ORDERED: SENNA 8.6 MG TAB PO SCH (21:00)
[2022-04-08] MEDS: ENOXAPARIN INJ 40 MG/0.4 ML SYR SQ SCH (21:14)
[2022-04-09] MEDS: LEVOTHYROXINE SODIUM 137 MCG TABLET PO SCH (05:59)
[2022-04-09] MEDS: MAGNESIUM OXIDE 400 MG TAB PO SCH (08:25)
[2022-04-09] MEDS: allopurinoL 300 MG TAB PO SCH (08:25)
[2022-04-09] MEDS: SPIRONOLACTONE 100 MG TAB PO SCH (08:25)
[2022-04-09] MEDS: BUMETANIDE 1 MG TAB PO SCH (08:25)
[2022-04-09] MEDS: METOPROLOL SUCC 50MG EXT REL TAB PO SCH (08:25)
[2022-04-09] MEDS: POTASSIUM CHLORIDE CRTAB 20 MEQ TABCR PO SCH (08:25)
[2022-04-09] MEDS: FAMOTIDINE 20 MG TAB PO SCH (08:25)
[2022-04-09] MEDS: CHOLECALCIFEROL 5,000 UNITS 125 MCG TAB PO SCH (08:25)
[2022-04-09] MEDS: MESALAMINE 0.375 GM PO SCH (08:26)
[2022-04-09 10:07] LABS: Basophils # (auto) 0.03 K/uL (0-0.2); Basophils % (auto) 0.3 %; Eosinophils # (auto) 0.88 K/uL (0-0.5); Eosinophils % (auto) 8.7 %; Hemoglobin 10.5 g/dL (14.0-18.0); Immature Granulocytes # (auto) 0.02 K/uL (0.00-0.02); Immature Granulocytes % (auto) 0.2 %; Lymphocytes # (auto) 2.12 K/uL (1.2-3.4); Lymphocytes % (auto) 21.1 %; Mean Corpuscular Hemoglobin 33.1 pg (25-34); Mean Corpuscular Hgb Conc 32.8 g/dL (32-36); Mean Corpuscular Volume 100.9 fL (80-100); Mean Platelet Volume 9.9 fL (7.4-10.4); Monocytes # (auto) 0.72 K/uL (0.11-0.59); Monocytes % (auto) 7.2 %; Neutrophils # (auto) 6.29 K/uL (1.4-6.5); Neutrophils % (auto) 62.5 %; Platelet Count 188 K/uL (130-400); RDW Coefficient of Variation 15.4 % (11.5-14.5); RDW Standard Deviation 56.4 fL (36.4-46.3); Red Blood Count 3.17 M/uL (4.7-6.1); White Blood Count 10.06 K/uL (4.8-10.8)
--- NOTE | 2022-04-09 10:26 | Nephrology Progress Note ---
Date of Service April 09, 2022 Assessment & Plan (1) Acute kidney injury: (2) Chronic kidney disease, stage 3a: (3) Venous ulcers of both lower extremities: (4) Lymphedema: Plan: 67-year-old gentlemen with h/o stage 3A CKD b/l Cr 1.5 to 1.8,, CML, appendiceal CA s/p R hemicolectomy, atrial fibrillation/flutter, hypothyroidism admitted with progressive weight gain, lymphedema, anasarca over last 1 months. he had hospitalization in January with almost 60 lb weight gain since July 2021, eventually was discharge with D L net negative since admission. However since discharge as an outpatient he again continued to gain weight became resistant to oral diuretic. He was admitted a week ago and started on IV Lasix and metolazone with improvement in volume status. Renal function was staying relatively stable until recently when creatinine rapidly increased to 2.3 this morning. Overall volume status improve significantly but continues to have lymphedema. 2D echo showed normal EF, no significant LVH. LFTs were normal. ANNA with metabolic alkalosis. Continues to be net negative, total 30 L. Lab was ordered this morning but it was not drawn until 9:30 a.m. Spoke with nursing stuff about contacting Phlebotomy to have the labs drawn. Volume status acceptable. -- continue on current dose of diuretics. if renal function stays stable, plan to discharge this afternoon with Bumex 2 mg once a day and spironolactone 100 mg daily with close outpatient lab monitoring. -- Recommend referring to lymphedema clinic for further management -- explained that his volume overload issue is not because of any underlying kidney disease, at baseline he has decent renal function and has with mild CKD. Discussed with Dr. Campos regarding patient's wishes to be referred to [facility] for further management. -- overall he seems to be pretty close to euvolemic although continues to have significant lymphedema which may not improve much despite getting the diuretics. Continue to keep leg elevated and use wraps. --eventually if he fails oral diuretics again, may need to plan for UF. will follow Admission and Anticipated Discharge Date Admission Date: April 01, 2022 Imelda Luciano was seen and evaluated this morning. He feels well, no shortness of breath or chest pain, noticed continued improvement in abdominal edema. Urine output 3 L with > 2.5 L net negative last 24 hours with oral Bumex. Lab this morning currently pending. There is significant improvement in lymphedema, abdominal wall edema. Review of Systems Review of Systems: Detailed review of system was otherwise unremarkable except mentioned above. Physical Exam Constitutional: WD/WN, vitals as above no acute distress Eyes: + anicteric sclerae Respiratory: no respiratory distress Auscultation: lungs clear to auscultation bilaterally Cardiovascular: Rate/Rhythm: regular rate and regular rhythm Heart Sounds: normal S1 and normal S2 Extremities: + edema Skin: no rashes Neurologic: no focal motor deficits and not confused Psychiatric: Orientation: alert and oriented x 3 Results & Data ([facility]) Vital Signs (Past 12 Hours) Vital Signs Temp Pulse Pulse Resp BP Pulse Ox 04/09/22 07:38 36.5 C 65 20 122/64 96 04/09/22 04:00 36.6 C 74 20 105/65 94 04/09/22 00:02 68 04/09/22 00:00 36.8 C 69 18 110/64 96 PG Care Time/CCT Total # of Minutes Spent Total Time Spent with Patient: Total time spent is greater than 50% in coordination of care (as documented) at patient's floor/unit and/or counseling patient: Coding Level of Care Code 47198 Subseq Hosp Care Lvl 3 Diagnoses Acute kidney injury N17.9 Chronic kidney disease, stage 3a N18.31 Venous ulcers of both lower extremities I83.019; I83.029; L97.919; L97.929 Lymphedema I89.0
[2022-04-09 10:40] LABS: BUN Creatinine Ratio 19.3 (10-20); Calcium 9.9 mg/dl (8.5-10.1); Creatinine Clr Calc Pharmacy 41.7 ml/min; Est GFR (African American) 33.6 ml/min; Potassium 3.8 mmol/L (3.5-5.1)
--- NOTE | 2022-04-09 11:14 | Discharge Summary ---
Date of Service April 09, 2022 Admission HPI Per Admitting Provider Mr. Bashir is a 67-year-old male with a past medical history of CML and appendiceal cancer (in remission), CKD stage IIIa, hypertension, hyperlipidemia, hypothyroidism, peripheral vascular disease, A. fib s/p ablation, and ulcerative colitis who presents today with increasing edema and shortness of breath. Patient was admitted to the hospital from 01/10 - 01/22 for anasarca despite being on Bumex BID at home. At that time he required Bumex drip with Diuril which he responded well to, diuresed for nearly 60 pounds of fluid. He was d/c'd on 01/22 at 250 lbs, and reports for 2 weeks following discharge, he was able to stay ahead of his swelling with his Bumex, however since then he has trouble maintaining it despite increases in his home Bumex dose and addition of metolazone 3x weekly recently increased to 5mg daily. He has associated FLORES, reports he is out of breath after walking 60-70 feet to his garage which is a change from his baseline, he is typically able to ambulate "much more". Otherwise without complaint, no fever/chills, weakness, myalgias, chest pain, palpitation, abdominal pain, nausea/vomiting. In ED, vital signs are stable and within normal limits. Labs significant for hemoglobin 10.3 (near baseline), Na+ 134, K+ 3.1, Mg++ 1.4. BUN 29, Cr 1.41, about baseline. T. bili 2.0 (baseline). BNP 572. UA unremarkable. COVID- negative. CXR showed cardiomegaly with pulmonary vascular congestion and interstitial coarsening suggestive of pulmonary edema. Patient received 4 mg IV Bumex, as well as magnesium and potassium in ED. Hospitalist service was consulted further evaluation and admission. Principal Diagnosis Chronic lymphedema cirrhosis Discharge Exam General:NAD. Cooperative. Alert and oriented x3. Ambulates around the room independently HEENT: Atraumatic, normocephalic. Hearing grossly intact Pulm: Symmetrical chest rise. Grossly clear without rales or wheezes. No incre ased work of breathing. No respiratory distress. Abdominal: NT, softly distended without rebound/rigidity. BS present. Ext: Diffuse pitting edema/anasarca though the legs, improved from admit but still prominent Discharge Data Allergies Allergy/AdvReac Type Severity Reaction Status Date / Time bee venom protein (honey bee) Allergy Severe DYSPNEA;SWE Verified 03/18/22 16:09 LLING Penicillins Allergy Unknown Verified 03/18/22 16:09 Consultations 04/01/22 15:54 ED Decision to Admit Stat 04/01/22 19:12 Consult Urology Routine 04/01/22 20:22 Consult Nephrology Routine 04/04/22 09:52 Consult Gastroenterology Routine Ordered Studies 04/04/22 10:26 CT abd pelvis wo con Routine Hospital Course (1) Anasarca: To do as outpatient: 1. Continue Bumex 2 mg twice daily, spironolactone 100 mg daily. Metolazone stopped. 2. Will require BMP rechecked for potassium stability and creatinine stability within 1 week by PCP 3. Follow-up with nephrology as outpatient. Patient would like second opinion in [facility] regarding his renal function which was being arranged by his PCP. 4. Outpatient follow-up to GI for cirrhosis 5. Continued lymphedema follow-up and treatment, patient enrolled with [facility] ?Acute on chronic diastolic CHF - ruled out - suspect anasarca as a result of liver cirrhosis as above Appreciate nephrology management with fluid retention - Vela catheter - Strict I/Os, daily weights, sodium and 1.5 fluid restriction. Elevate legs. - Dry weight on discharge 2 months ago was 250 pounds. Documented weight at nephrology visit on 03/14 was 299 lbs. Weight documented in ED is 327 lbs. - Continue Lasix 100 mg IV TID and metolazone switched to spironolactone 100mg PO daily per nephrology. Continue leg wraps and elevate -04/07: Continues to diurese approximately 3-3.5 L net per day, weight downtrending 125.2 kg today continue furosemide and Aldactone. Elevated creatinine from baseline, but stable with diuresis and slightly downtrending. Continues to require IV diuretics and Vela for high-volume diuresis. Patient does feel he is having some clinical improvement in the swelling in his legs as well -04/08. Creatinine elevated, Lasix held. Patient appears near euvolemic, but with severe persistent lymphedema. 04/09: Creatinine downtrending, patient continues with good urine output. Recommended for discharge home with outpatient follow-up and BMP within 1 week. Near euvolemic with remaining fluid likely due to chronic lymphedema, recommended for follow-up with [facility] for lymphedema treatment. We will also follow-up with CHF clinic for underlying potential diastolic component. Patient is pending follow-up to [facility] nephrology for second opinion, and would recommend continued follow-up with gastroenterology for cirrhosis as outpatient (2) Cirrhosis: - Suspected as cause of fluid retention given lack of proteinuria and completely Echo preserved EF with grade 2 diastolic dysfunction and no valvular abnormalities on TTE. Clinically with diastolic right heart failure with preserved ejection fraction - Liver cirrhosis was noted on prior CT but previously anasarca has through to be secondary to CHF/CKD. - He denies being told he has liver problems in the past. - Appreciate GI consult. Ascites improved on recent CT - Possible [place] vs prior alcohol use. He has also been on dasatinib for 10 years up until 2 months ago which is known to be hepatotoxic. Hepatitis panel pending. - MELD 20 [04/04] suspect this is over-estimate as Cr currently elevated from diuretics - INR 1.4 and bilirubin 2.6. Plt WNL. (3) Hypokalemia: Repleted as needed and normalized BMP as above as patient started on spironolactone during admission (4) Hypomagnesemia: - Repleted (5) Chronic kidney disease, stage 3a: Acute kidney injury Baseline appears around 1.31.5 Nephrology consulted, have discussed vascular access/[employer] and potential referral as outpatient for aVF. No acute indication for dialysis at this time Creatinine bumped /, recommendations as above Patient would like second opinion with [facility] regarding [employer] in the future, this is being arranged as outpatient (6) Hypertension: - Continue metoprolol 50mg BID. (7) Hypothyroidism: - Continue levothyroxine 137 mcg daily. - TSH 2.56 in February. (8) S/P ablation of atrial fibrillation: - Previously underwent ablation and is currently in sinus rhythm. - Continue metoprolol succinate 50mg PO BID. - Not on DOAC due to history of significant GI bleed requiring hospitalization and over 5 units of blood for stabilization. (9) CML (chronic myelocytic leukemia): - Diagnosed with CML in 2010; not currently on medical therapy. 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 - Has lymphedema pumps. Continue lymphedema follow-up with [facility] (11) GERD (gastroesophageal reflux disease): - Continue Pepcid 20mg BID. (12) Venous ulcers of both lower extremities: - Follows with wound care. - Continued to med/tele. - SCDs, lovenox for DVT ppx admit - Full code. Total Time Total Time Spent Total Time Spent (In Minutes): Time spend day of discharge 45 minutes including direct patient care, documentation, review of labs and images, and coordination of care. Discharge Plan Discharge Items Patient Disposition: Home - Home Health Services Reason For Visit: ANASARCA Discharge Diagnosis: Lymphedema Activity: Per Instructions section Non-emergency contact: Primary Care Provider and Steamer Tender Call non-emergency contact if: you have any medication questions and your symptoms worsen Follow-up/Referrals: Pro,Israel Quiroz MD [Primary Care Provider] - Wally Bokyin PA-C [Physician Pier Hand] - 04/11/22 2:45 pm (THIS APPOINTMENT WILL BE AT THE [facility] OFFICE.) Diet: Heart Healthy and Low Sodium (2gm) Addtl Attending Provider Instructions: You were seen in the hospital for fluid overload. You are treated with diuretics and had rapid large-volume diuresis with clinical improvement in your leg swelling. It was unclear what degree this fluid accumulation is due to your lymphedema versus some CHF, the pumping function of your heart was normal but there was some stiffness during relaxation. You eat out up to 3 L of fluid every day, and decreased from an admitting weight of 148.6 kg down to 122.3 kg at time of discharge (loss of approximately 57.8 pounds of fluid). You were seen by nephrology during admission, and your creatinine while elevated was improving at time of discharge. A referral was being placed by your primary care physician for a second opinion in [place] regarding optimal kidney management and treatment prior to your admission, please keep this referral if you would like a second opinion on the best management of your kidney disease. You have been discharged to continue your home dosing of Bumex and spironolactone with close follow-up to nephrology. You should have a repeat BMP this week to follow your kidney function to make sure it does not worsen. Your metolazone has been stopped at this time. Your dose of Bumex has been changed, please take Bumex 2 mg twice daily Please take spironolactone 100 mg by mouth in the morning daily. This can affect your potassium and may cause your potassium to be high, please have your potassium checked on BMP as above. You may need a medication adjustment or to stop potassium supplementation if your potassium is high on recheck Diuresis/fluid medicines are only effective at removing fluid that is present in the bloodstream. This is helpful and effective for fluid that accumulates from heart failure, but is ineffective from fluid due to chronic lymphedema in which most of the fluid is present in the legs and does not make it into the bloodstream. To help improve chronic lymphedema it is important to maintain regular lymphedema follow-up with wrapping and periodic leg elevation. You are continued with [facility] lymphedema care on discharge, with follow-up to the CHF clinic for additional help for fluid that may be related to heart failure. If you develop any new or worsening symptoms including fever, chills, sweats, chest pain, chest pressure, difficulty breathing, uncontrolled nausea/vomiting, rash, wheezing, passing out or nearly passing out, bleeding, black/bloody bowel movements, or other new or concerning symptoms please call your primary care physician, or call 911 for re-evaluation in the emergency department if you are very concerned. Pending Studies at Discharge: No Stand-Alone Forms: My [facility], Smoking Cessation Medications and DC Order Prescriptions: New spironolactone 100 mg Tablet 100 mg PO QAM Qty: 30 RF: 0 Continued triamcinolone acetonide 0.1 % ointment 1 applic topical DAILY PRN (Reason: Skin Irritation) Qty: 80 RF: 1 cholecalciferol (vitamin D3) 125 mcg (5,000 unit) tablet 5,000 unit PO QAM Qty: 90 RF: 3 allopurinol 300 mg tablet 300 mg PO DAILY Qty: 90 RF: 3 potassium chloride 20 mEq tablet extended release 40 meq PO QID RF: 0 magnesium oxide 250 mg magnesium tablet 250 mg PO DAILY Qty: 30 RF: 0 levothyroxine 137 mcg tablet 137 mcg PO DAILY Qty: 90 RF: 3 mesalamine 0.375 gram capsule,extended release 24hr 1.5 g PO DAILY Qty: 90 RF: 3 metoprolol succinate 100 mg tablet extended release 24 hr 50 mg PO BID Qty: 180 RF: 3 tadalafil 20 mg tablet 20 mg PO DAILY PRN (Reason: Erectile Dysfunction) RF: 0 epinephrine [EpiPen 2-Sb] 0.3 mg/0.3 mL auto-injector 0.3 mg IM Q10M PRN (Reason: anaphylaxis) Qty: 2 RF: 2 ondansetron 4 mg tablet,disintegrating 4 mg PO Q8H PRN (Reason: nausea and vomiting) RF: 0 famotidine 20 mg Tablet 20 mg PO BID Qty: 60 RF: 0 menthol-zinc oxide [Calmoseptine] 0.44-20.6 % Ointment 1 applic EXT UD Qty: 113 RF: 0 Changed bumetanide 2 mg tablet 2 mg PO BID Qty: 120 RF: 3 Discontinued metolazone 5 mg tablet 5 mg PO DAILY Qty: 90 RF: 3 Discharge Orders: Discharge Order (Routine); Ordered 04/09/22 Ordered By: Maxwell Campos Admission Data Admit Date/Time: 04/01/22 17:47 Attending Provider: Maxwell Campos Admit Provider: Urvashi Murphy Primary Care Provider: Israel Melton Other Providers: Urvashi Murphy ; Hardeep Quintero ; Hardeep Ch ; Jose Stewart Other Interventions: Discharge Summary Assessment (RN) Last Done: 04/09/22 12:37 Coding Level of Care Code D/C DAY MANAGEMENT >30 MINS Diagnoses Cirrhosis K74.60 Anasarca R60.1 Hypokalemia E87.6 Hypomagnesemia E83.42 Chronic kidney disease, stage 3a N18.31 Hypertension I10 Hypothyroidism E03.9 S/P ablation of atrial fibrillation Z98.890; Z86.79 CML (chronic myelocytic leukemia) C92.10 H/O lymph node excision Z98.890 GERD (gastroesophageal reflux disease) K21.9 Venous ulcers of both lower extremities I83.019; I83.029; L97.919; L97.929
[2022-04-10] MEDS ORDERED: BUMETANIDE 1 MG TAB PO SCH (09:00)
== END 2022-04-09 13:34 | disposition home health service (06) | DRG 433 ==
LOC: ED 12:08 → 2W 17:47 → SUATTDRO 17:47 → 2W 19:53

== ENCOUNTER 2023-01-22 14:00 | Inpatient (IN) ==
[2023-01-22] MEDS ORDERED: CEFEPIME 2,000 MG/20 ML VIAL IV STA (15:02)
[2023-01-22] MEDS ORDERED: ACETAMINOPHEN 500 MG TAB PO STA (15:02)
--- NOTE | 2023-01-22 15:08 | Emergency Department Note ---
Impression & Plan Cellulitis, Fever, Leukocytosis, Elevated liver enzymes, Creatinine elevation, Anemia ED Provider Note NAME: EMILY MUÑOZ AGE: 67 SEX: M : 1955 ARRIVES VIA: Walk-In INFORMANT: [Patient] ED PROVIDER(S): [Xiang Duffy MD] CHIEF COMPLAINT: Left leg pain and swelling HISTORY OF PRESENT ILLNESS: The patient is a 67-year-old male who presents with left leg pain and swelling f or 3 days. Today, he did not feel well. He was nauseated, had a fever. He feels weak. The patient states that his left leg began giving him trouble when he had it wrapped by the wound center 2 days ago. Since the wrapping, he has noticed the increasing swelling, increasing pain. He thought maybe the wrap was too tight. There has been some slight cough lately, no shortness of breath. He has not vomited. He does not have any chest pain or abdominal pain. The patient was to be at the wound center again today but presents to the ED because of the difficulty with the left leg. PMHx/PSHx: See Below SOCIAL HISTORY: See Below. PHYSICAL EXAM: GENERAL: Patient is in no acute distress. HEENT: No acute trauma, normocephalic atraumatic, mucous membranes moist, no nasal congestion. NECK: No stridor, no adenopathy, no meningismus, trachea is midline. LUNGS: A few scattered wheezes heard, no rhonchi, no respiratory distress. HEART: 2/6 systolic murmur, regular rate and rhythm. ABDOMEN: Soft, nontender, bowel sounds positive, no peritonitis. EXTREMITIES: No cyanosis. Significant bilateral pedal edema with chronic skin change which is worse on the left. Both legs are wrapped. He has erythema and warmth to the left distal foot and also the left leg below the knee. When the wrap was removed, drainage was seen from the cellulitic leg. NEUROLOGIC: Oriented x 3, no acute motor or sensory deficits, no focal weakness. SKIN: No diaphoresis. DIFFERENTIAL DIAGNOSIS: Bacteremia or sepsis, cellulitis, DVT, bronchitis or pneumonia, dehydration, among others. EMERGENCY DEPARTMENT COURSE/PROCEDURES: Prior/Outside records reviewed: None. ECG per my interpretation: Indication was possible sepsis. The ECG shows a normal sinus rhythm with a rate of 93. There is an incomplete right bundle branch block seen. There is no ST elevation. Inverted T waves are noted laterally. No PVCs. The QTc is 502. Continuous Cardiac Monitoring per my interpretation: An order was placed for continuous cardiac monitoring. The monitor shows a rate of 83 with normal sinus rhythm. Critical Care Note: I have personally spent 51 minutes of critical care time in the direct management of this patient. This includes bedside care, interpretation of diagnostic studies, and testing, discussion with consultants, patient, and family members, and other required patient management activities. This 51 minutes is in excess of all separately billable procedures. MEDICAL DECISION MAKING: There is a moderate leukocytosis which would be consistent with infection. The patient is anemic but the anemia has been noted before. Platelet count somewhat low at 121. INR is elevated at 1.7. PTT is slightly elevated. Renal panel testing does show an elevation to the creatinine--creatinine was elevated last month as well. Sodium was low at 131. Lactic acid level was elevated suggestive of infection. Patient does have elevation to his bilirubin, this has been documented before but today's value is higher than his recent testing. Procalcitonin level was elevated consistent with bacterial infection. ECG showed a normal sinus rhythm, no obvious ischemia. Cardiac enzyme testing x1 is slightly elevated. This troponin elevation could be secondary to cardiac injury or potentially mismatch. COVID, influenza and RSV test were negative. Chest film per my review shows some potential congestion/CHF versus changes from body habitus. Left lower extremity ultrasound does not show findings of DVT. Patient received IV cefepime, IV Zosyn and then IV daptomycin. He was given oral Tylenol. The patient has a cellulitis which requires IV antibiotic therapy, he requires hospitalization. I spoke with the patient, I talked to case management, the on-call hospitalist was consulted. DISPOSITION: Patient's presentation and findings warrant a hospital stay. Past Med/Surg History Medical History Acute kidney injury Atrial flutter 10/02/2020: Ablation of typical right atrial isthmus dependent flutter. [facility] of appendix sx to treat Chronic kidney disease, stage 3a follows with Dr. Giraldo CML (chronic myelocytic leukemia) no chemo at present COVID-19 GERD (gastroesophageal reflux disease) History of COVID-12 Dec 2021 > not hospitalized Hypertension Hypokalemia Hypothyroidism Low platelet count Lymphedema Murmur Paroxysmal A-fib resolved with ablation Pulmonary embolism Aug 2022 > was treated with Eliquis and now finished SVT (supraventricular tachycardia) 01/21/2012: Ablation of typical slow fast AVNRT [facility] Trifascicular block follows with Dr. 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) Family History Grandmother (Paternal) Colorectal cancer Father Myocardial infarction Prostate cancer Denies family history of Ovarian cancer Dementia Breast cancer Social History Smoking Status: Never smoker Second Hand Exposure: No; Hx Alcohol Use: Yes Alcohol type: beer Hx Substance Use: No Preferred Language: Cymro Communication Ability: Effective Visual Impairment: Limited Hearing Ability: Normal Right Of Way Maintenance Supervisor Required: No Beliefs That Will Affect Care: None marital status: Current Living Situation: Spouse 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 How many Children do You have: 2 Feels Safe at Home: Yes Childhood Exposure to Second-Hand Smoke: No Diet Comment: 2000 cc fluid restriction during the past year weight has: increased > 10 lbs Dental Care, Regularly: Yes Physical Activity Frequency: Daily Seatbelt Use: always Sunscreen Use: Yes Assistive Devices: Glasses Allergies Allergies Allergy/AdvReac Type Severity Reaction Status Date / Time bee venom protein (honey bee) Allergy Severe DYSPNEA;SWE Verified 01/20/23 08:15 LLING latex Allergy Mild Rash Verified 01/17/23 11:55 Penicillins Allergy Unknown HAPPENED Verified 01/17/23 11:55 A CHILD Home Meds Home Medications Medication Instructions Recorded Confirmed tadalafil 20 mg tablet 20 mg PO DAILY PRN Erectile 08/06/21 01/13/23 Dysfunction metoprolol succinate 100 mg 50 mg PO QAM 04/24/22 01/13/23 tablet,extended release 24 hr levothyroxine 137 mcg tablet 137 mcg PO QPM 09/02/22 01/13/23 menthol 0.44 %-zinc oxide 20.6 % 1 applic EXT DIRECTED 09/17/22 01/13/23 topical ointment (Calmoseptine) bumetanide 2 mg tablet 2 mg PO BID 10/04/22 01/13/23 magnesium 250 mg tablet 250 mg PO BID 10/31/22 01/13/23 allopurinol 300 mg tablet 300 mg PO QDL 01/07/23 01/13/23 mesalamine 0.375 gram 1.5 g PO QDL 01/07/23 01/13/23 capsule,extended release 24 hr Previous Rx's Medication Instructions Recorded epinephrine 0.3 mg/0.3 mL 0.3 mg (0.3 mL) IM Q10M PRN 08/06/21 injection, auto-injector (EpiPen anaphylaxis #2 ea 2-Sb) triamcinolone acetonide 0.1 % 1 applic topical DAILY PRN Skin 02/08/22 topical ointment Irritation #80 grams apixaban 5 mg (74 tabs) tablets in 5 mg PO BID #74 ea 09/02/22 a dose pack (Eliquis) spironolactone 100 mg tablet 100 mg PO QAM #90 tabs 10/31/22 Results & Data (ED) Vital Signs Vital Signs - 24 hr 01/22/23 14:15 01/22/23 15:32 01/22/23 15:33 Temperature 36.4 C L Temperature Source Temporal Artery Scan Pulse Rate 90 93 H Respiratory Rate 20 Respiratory Effort / Characteristics Non-Labored Spontaneous Respiratory Depth Normal Respiratory Pattern Regular Blood Pressure 107/52 L Blood Pressure Mean 70 Pulse Oximetry 100 96 Oxygen Delivery Method Room Air Room Air Oxygen Flow Rate Sepsis Recent Fever Within 48 Hours No Sepsis New/Unexplained Change in Mental Status No Sepsis Action Taken by Nursing No Action Required 01/22/23 15:31 01/22/23 16:18 01/22/23 16:16 Temperature Temperature Source Pulse Rate 92 H Respiratory Rate 22 Respiratory Effort / Characteristics Respiratory Depth Respiratory Pattern Blood Pressure 133/55 L Blood Pressure Mean 81 Pulse Oximetry 95 99 89 L Oxygen Delivery Method Nasal Cannula Room Air Oxygen Flow Rate 2 Sepsis Recent Fever Within 48 Hours Sepsis New/Unexplained Change in Mental Status Sepsis Action Taken by Nursing 01/22/23 15:45 01/22/23 16:00 01/22/23 16:15 Temperature Temperature Source Pulse Rate 90 85 89 Respiratory Rate 24 24 21 Respiratory Effort / Characteristics Respiratory Depth Respiratory Pattern Blood Pressure 123/57 L 109/85 112/50 L Blood Pressure Mean 79 93 70 Pulse Oximetry 94 92 97 Oxygen Delivery Method Oxygen Flow Rate Sepsis Recent Fever Within 48 Hours Sepsis New/Unexplained Change in Mental Status Sepsis Action Taken by Nursing 01/22/23 16:30 01/22/23 17:00 Temperature Temperature Source Pulse Rate 86 80 Respiratory Rate 22 21 Respiratory Effort / Characteristics Respiratory Depth Respiratory Pattern Blood Pressure 109/55 L Blood Pressure Mean 73 Pulse Oximetry 99 99 Oxygen Delivery Method Oxygen Flow Rate Sepsis Recent Fever Within 48 Hours Sepsis New/Unexplained Change in Mental Status Sepsis Action Taken by Half-Way Medications Current Medication List: was personally reviewed by me Laboratory Data Attestation: I reviewed the patient's lab results. 01/22/23 15:20 01/22/23 15:20 Lab Results 01/22/23 01/22/23 01/22/23 Range/Units 15:20 15:20 15:20 WBC 17.48 H (4.8-10.8) K/ul RBC 2.80 L (4.70-6.10) M/uL Hgb 9.7 L (14.0-18.0) g/dl Hct 28.8 L (42.0-52.0) % MCV 102.9 H (80.0-100.0) fL MCH 34.6 H (25.0-34.0) pg MCHC 33.7 (32.0-36.0) g/dL RDW Std Deviation 62.8 H (36.4-46.3) fL RDW Coeff of Howie 16.5 H (11.5-14.5) % Plt Count 121 L (130-400) K/uL MPV 10.7 (9.4-12.4) fL Immature Gran % (Auto) 0.6 % Neut % (Auto) 88.4 % Lymph % (Auto) 5.7 % [place] % (Auto) 4.6 % Eos % (Auto) 0.4 % Baso % (Auto) 0.3 % Neut # (Auto) 15.46 H (1.40-6.50) K/uL Lymph # (Auto) 0.99 L (1.2-3.4) K/uL [place] # (Auto) 0.80 H (0.11-0.59) K/uL Eos # (Auto) 0.07 (0-0.50) K/uL Baso # (Auto) 0.06 (0-0.2) K/uL Immature Gran # (Auto) 0.10 (0.01-0.20) K/uL PT 17.3 H (9.0-12.0) Seconds INR 1.7 H (0.9-1.1) APTT 33.4 H (21.0-31.0) Seconds PTT Ratio 1.2 Sodium 131 L (136-145) mmol/L Potassium 4.3 (3.5-5.1) mmol/L Chloride 93 L (98-107) mmol/L Carbon Dioxide 29 (21-32) mmol/L Anion Gap 9 (3-11) BUN 43 H (6-23) mg/dl Creatinine 1.99 H (0.6-1.4) mg/dl Est Cr Clr Drug Dosing 50.9 ml/min Est GFR ( Amer) 39.7 ml/min Est GFR (Non-Af Amer) 34.2 ml/min BUN/Creatinine Ratio 21.6 H (10-20) Glucose 139 H (70-99(Fasting)) mg/dl Lactate (0.4-2.0) mmol/L Calcium 9.4 (8.5-10.1) mg/dl Magnesium 2.0 (1.7-2.4) mg/dl Total Bilirubin 6.7 H (0.2-1.0) mg/dl Direct Bilirubin 2.2 H (0-0.2) mg/dl AST 36 (13-39) U/L ALT 15 (7-52) U/L Alkaline Phosphatase 69 (34-104) U/L Troponin I High Sens 56.4 H* (0-20) pg/ml Total Protein 7.7 (6.0-8.3) gm/dl Albumin 3.6 (3.4-5.0) gm/dl Procalcitonin (0-0.5) ng/ml SARS-CoV-2 (PCR) (Negative) Influenza Type A (PCR) (Neg) Influenza Type B (PCR) (Neg) RSV (RT-PCR) (Neg) 01/22/23 01/22/23 01/22/23 Range/Units 15:20 15:20 15:36 WBC (4.8-10.8) K/ul RBC (4.70-6.10) M/uL Hgb (14.0-18.0) g/dl Hct (42.0-52.0) % MCV (80.0-100.0) fL MCH (25.0-34.0) pg MCHC (32.0-36.0) g/dL RDW Std Deviation (36.4-46.3) fL RDW Coeff of Howie (11.5-14.5) % Plt Count (130-400) K/uL MPV (9.4-12.4) fL Immature Gran % (Auto) % Neut % (Auto) % Lymph % (Auto) % [place] % (Auto) % Eos % (Auto) % Baso % (Auto) % Neut # (Auto) (1.40-6.50) K/uL Lymph # (Auto) (1.2-3.4) K/uL [place] # (Auto) (0.11-0.59) K/uL Eos # (Auto) (0-0.50) K/uL Baso # (Auto) (0-0.2) K/uL Immature Gran # (Auto) (0.01-0.20) K/uL PT (9.0-12.0) Seconds INR (0.9-1.1) APTT (21.0-31.0) Seconds PTT Ratio Sodium (136-145) mmol/L Potassium (3.5-5.1) mmol/L Chloride (98-107) mmol/L Carbon Dioxide (21-32) mmol/L Anion Gap (3-11) BUN (6-23) mg/dl Creatinine (0.6-1.4) mg/dl Est Cr Clr Drug Dosing ml/min Est GFR ( Amer) ml/min Est GFR (Non-Af Amer) ml/min BUN/Creatinine Ratio (10-20) Glucose (70-99(Fasting)) mg/dl Lactate 3.2 H* (0.4-2.0) mmol/L Calcium (8.5-10.1) mg/dl Magnesium (1.7-2.4) mg/dl Total Bilirubin (0.2-1.0) mg/dl Direct Bilirubin (0-0.2) mg/dl AST (13-39) U/L ALT (7-52) U/L Alkaline Phosphatase (34-104) U/L Troponin I High Sens (0-20) pg/ml Total Protein (6.0-8.3) gm/dl Albumin (3.4-5.0) gm/dl Procalcitonin 6.84 H (0-0.5) ng/ml SARS-CoV-2 (PCR) NEGATIVE (Negative) Influenza Type A (PCR) Negative (Neg) Influenza Type B (PCR) Negative (Neg) RSV (RT-PCR) Negative (Neg) Administered Medications Discontinued Medications Acetaminophen (Acetaminophen 500 Mg Tab) 1,000 mg PO NOW STA Stop: 01/22/23 15:03 Last Admin: 01/22/23 15:22 Dose: 1,000 mg Documented By: MARIBEL Cefepime HCl (Maxipime) 2,000 mg in 20 mls @ 5 mls/min IV NOW STA; Protocol Stop: 01/22/23 15:05 Last Admin: 01/22/23 15:22 Dose: 5 mls/min Documented By: MARIBEL Piperacillin Sod/Tazobactam Sod (Zosyn) 4.5 gm in 120 mls @ 240 mls/hr IV NOW STA Stop: 01/22/23 17:30 Last Infusion: 01/22/23 18:16 Dose: 0 mls/hr Documented By: Admin: 01/22/23 17:44 Dose: 240 mls/hr Documented By: MARIBEL Imaging Data Radiologist's Impression: Chest X-Ray 01/22/23 15:02 XR chest 1V portable CLINICAL HISTORY: Sepsis COMPARISON STUDY: Chest CT September 02, 2022 and chest radiograph September 17, 2022. FINDINGS: No pneumothorax or pleural effusion is identified. Cardiomegaly is unchanged. There is pulmonary vascular congestion without overt pulmonary edema. No dilatation to suggest pneumonia. IMPRESSION: Cardiomegaly with pulmonary vascular congestion. ACT 112: Negative or not required by law. Electronically signed by: Vikram Angel M.D. 01/22/2023 4:30 PM Venous Doppler Study 01/22/23 16:33 LEFT LOWER EXTREMITY VENOUS DOPPLER HISTORY: Left leg swelling COMPARISON STUDY: None. FINDINGS: There is normal compressibility, flow, and augmentation within the left lower extremity deep venous system. IMPRESSION: No DVT within the left lower extremity. ACT 112: Negative or not required by law. Electronically signed by: Mario Campbell M.D. 01/22/2023 5:46 PM Discharge Plan Visit Data Chief Complaint: Edema To Extremity Stated Complaint: SWELLED FOOT ED Provider: Xiang Duffy Discharge Problem: Cellulitis, Fever, Leukocytosis, Elevated liver enzymes, Creatinine elevation, Anemia Patient Disposition: Admitted As Inpatient Condition: Fair Forms Stand Alone Forms: [facility] Prescriptions Prescriptions: No Action metoprolol succinate 100 mg tablet extended release 24 hr 50 mg PO QAM triamcinolone acetonide 0.1 % ointment 1 applic topical DAILY PRN (Reason: Skin Irritation) Qty: 80 1RF Rx Instructions: Apply topically to legs daily PRN magnesium 250 mg tablet 250 mg PO BID spironolactone 100 mg tablet 100 mg PO QAM Qty: 90 3RF tadalafil 20 mg tablet 20 mg PO DAILY PRN (Reason: Erectile Dysfunction) Rx Instructions: administer approximately 30min before sexual activity; do not use more than 1 dose per 24hrs epinephrine [EpiPen 2-Sb] 0.3 mg/0.3 mL auto-injector 0.3 mg IM Q10M PRN (Reason: anaphylaxis) Qty: 2 2RF bumetanide 2 mg tablet 2 mg PO BID allopurinol 300 mg tablet 300 mg PO QDL mesalamine 0.375 gram capsule,extended release 24hr 1.5 g PO QDL Rx Instructions: TAKES 4 CAPS. levothyroxine 137 mcg tablet 137 mcg PO QPM Rx Instructions: Takes 2 hrs after supper menthol-zinc oxide [Calmoseptine] 0.44-20.6 % ointment 1 applic EXT DIRECTED Referrals Referrals: Pro,Israel Quiroz MD [Primary Care Provider] -
--- NOTE | 2023-01-22 15:46 | Electrocardiogram Report ---
Test Reason : Blood Pressure : / mmHG Vent. Rate : 093 BPM Atrial Rate : 093 BPM P-R Int : 170 ms QRS Dur : 120 ms QT Int : 404 ms P-R-T Axes : 088 -57 071 degrees QTc Int : 502 ms Normal sinus rhythm Left axis deviation Right bundle branch block Anteroseptal infarct (cited on or before 05-OCT-2012) Abnormal ECG When compared with ECG of 17-SEP-2022 12:53, Questionable change in initial forces of Lateral leads Confirmed by Israel Roman ([id number]) on 01/22/2023 3:45:56 PM Referred By: ED Confirmed By:Israel Roman
[2023-01-22 15:51] LABS: Basophils # (auto) 0.06 K/uL (0-0.2); Basophils % (auto) 0.3 %; Eosinophils # (auto) 0.07 K/uL (0-0.50); Eosinophils % (auto) 0.4 %; Hematocrit (blood only) 28.8 % (42.0-52.0); Hemoglobin 9.7 g/dl (14.0-18.0); Immature Granulocytes % (auto) 0.6 %; Lymphocytes # (auto) 0.99 K/uL (1.2-3.4); Lymphocytes % (auto) 5.7 %; Mean Corpuscular Hemoglobin 34.6 pg (25.0-34.0); Mean Corpuscular Hgb Conc 33.7 g/dL (32.0-36.0); Mean Corpuscular Volume 102.9 fL (80.0-100.0); Mean Platelet Volume 10.7 fL (9.4-12.4); Monocytes % (auto) 4.6 %; Neutrophils # (auto) 15.46 K/uL (1.40-6.50); Neutrophils % (auto) 88.4 %; Platelet Count 121 K/uL (130-400); RDW Coefficient of Variation 16.5 % (11.5-14.5); RDW Standard Deviation 62.8 fL (36.4-46.3); White Blood Count 17.48 K/ul (4.8-10.8)
[2023-01-22 16:16] LABS: INR 1.7 (0.9-1.1); Partial Thromboplastin Ratio 1.2; Partial Thromboplastin Time 33.4 Seconds (21.0-31.0); Prothrombin Time 17.3 Seconds (9.0-12.0)
[2023-01-22 16:24] LABS: Influenza A virus by PCR Negative (Neg); Influenza B virus by PCR Negative (Neg); RSV by PCR Negative (Neg); SARS CoV2 RNA(COVID-19) Ceph NEGATIVE (Negative)
--- NOTE | 2023-01-22 16:31 | XRay Report ---
XR chest 1V portable CLINICAL HISTORY: Sepsis COMPARISON STUDY: Chest CT September 02, 2022 and chest radiograph September 17, 2022. FINDINGS: No pneumothorax or pleural effusion is identified. Cardiomegaly is unchanged. There is pulm onary vascular congestion without overt pulmonary edema. No dilatation to suggest pneumonia. IMPRESSION: Cardiomegaly with pulmonary vascular congestion. ACT 112: Negative or not required by law. Electronically signed by: Vikram Angel M.D. 01/22/2023 4:30 PM
[2023-01-22 16:42] LABS: Troponin I High Sensitivity 56.4 pg/ml (0-20)
[2023-01-22] MEDS ORDERED: PIPERACILLIN/TAZOBACTAM 4.5 GM/120 ML BAG IV STA (17:01)
[2023-01-22 17:06] LABS: Albumin Level 3.6 gm/dl (3.4-5.0); BUN Creatinine Ratio 21.6 (10-20); Bilirubin Direct 2.2 mg/dl (0-0.2); Bilirubin,Total 6.7 mg/dl (0.2-1.0); Calcium 9.4 mg/dl (8.5-10.1); Creatinine Clr Calc Pharmacy 50.9 ml/min; Est GFR (African American) 39.7 ml/min; Est GFR (Non-African American) 34.2 ml/min; Potassium 4.3 mmol/L (3.5-5.1); Total Protein 7.7 gm/dl (6.0-8.3)
[2023-01-22] MEDS ORDERED: DAPTOmycin 575 MG in SYRINGE 0 ML IV STA (17:38)
--- NOTE | 2023-01-22 17:47 | Ultrasound Report ---
LEFT LOWER EXTREMITY VENOUS DOPPLER HISTORY: Left leg swelling COMPARISON STUDY: None. FINDINGS: There is normal compressibility, flow, and augmentation within the left lower extremity aroldo p venous system. IMPRESSION: No DVT within the left lower extremity. ACT 112: Negative or not required by law. Electronically signed by: Mario Campbell M.D. 01/22/2023 5:46 PM
--- NOTE | 2023-01-22 19:25 | History & Physical Report ---
Date of Service January 22, 2023 Assessment & Plan (1) Cellulitis: Plan: Lower extremity cellulitis Lactate elevated, downtrending after fluids and antibiotics Procalcitonin 6.84 - Continue zosyn/dapto. Tolerating well, childhood allergic of PCN - Clinically volume depleted, +1 bag IVF at maintenance, defer additionl due ot hx of volume overload - No chest pain, chest pressure, EKG change - Wound care consulted Baseline creatinine previously less than 1.35, had increased in December to 1.84 and remains elevated at 1.99 on admission ? Prerenal in the setting of infection versus developing chronic Urine protein, albumin, sodium, osmolality pending Nephrology consulted Bumex held Spironolactone held Hx of right-sided heart failure Spironolactone, Bumex temporarily held for? ANNA and concern of sepsis 2/2 cellulitis - Clinically volume depleted Hypothyroidism Continue Synthroid Elevated bilirubin Elevated D bili No transaminitis Liver ultrasound pending Trend Hypertension - Antihypertensives held, clinically volume down DVT PPx: Heparin CODE: Full Diet: HH, Low Na (2) Fever: (3) Elevated liver enzymes: (4) Creatinine elevation: (5) Leukocytosis: (6) Anemia: History of Present Illness Primary Care Provider: Israel Melton MD Rodríguez is a 67-year-old male with a past medical history of of A-fib s/p ablation, CKD, venous insufficiency, CML, PAD, GERD who presents with acute cellulitis. 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 + Fever. +bilateral L>R leg swelling. Chronic lymphedema s/p lymph node excision and hx of chemo for CML in remission per pt. Legs wrapped Friday, since then L leg rapidly increasing asymmetric warmth, swelling, erythema, tenderness and purulent drainage. No ches tpain or chest pressure. Not sure if he can sleep laying flat, never tries. Leg does not show evidence of a clot on Doppler Peeing less than normal. No pain. Eating and drinking normally, no abdominal pain. Medical History: Reviewed Medications: Reviewed Surgical History: Reviewed Allergies: Reviewed. Penicillin as a kid, has gotten piperacillin since and tolerated Social History: No tobacco/etoh use Code Status: Full Code Allergies Allergy/AdvReac Type Severity Reaction Status Date / Time bee venom protein (honey bee) Allergy Severe DYSPNEA;SWE Verified 01/22/23 18:17 LLING latex Allergy Intermediate Rash Verified 01/22/23 18:17 Penicillins Allergy Unknown HAPPENED Verified 01/22/23 18:17 A CHILD Home Medications Medication Instructions Recorded Confirmed Type epinephrine 0.3 mg/0.3 mL 0.3 mg (0.3 mL) IM Q10M PRN 08/06/21 01/22/23 Rx injection, auto-injector (EpiPen anaphylaxis #2 ea 2-Sb) tadalafil 20 mg tablet 20 mg PO DAILY PRN Erectile 08/06/21 01/22/23 History Dysfunction triamcinolone acetonide 0.1 % 1 applic topical DAILY PRN Skin 02/08/22 01/22/23 Rx topical ointment Irritation #80 grams metoprolol succinate 100 mg 50 mg PO QAM 04/24/22 01/22/23 History tablet,extended release 24 hr levothyroxine 137 mcg tablet 137 mcg PO QPM 09/02/22 01/22/23 History menthol 0.44 %-zinc oxide 20.6 % 1 applic EXT DIRECTED 09/17/22 01/22/23 History topical ointment (Calmoseptine) bumetanide 2 mg tablet 2 mg PO BID 10/04/22 01/22/23 History magnesium 250 mg tablet 250 mg PO BID 10/31/22 01/22/23 History spironolactone 100 mg tablet 100 mg PO QAM #90 tabs 10/31/22 01/22/23 Rx allopurinol 300 mg tablet 300 mg PO QDL 01/07/23 01/22/23 History mesalamine 0.375 gram 1.5 g PO QDL 01/07/23 01/22/23 History capsule,extended release 24 hr Past Med/Surg History Medical History Acute kidney injury Atrial flutter 10/02/2020: Ablation of typical right atrial isthmus dependent flutter. 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 Giraldo CML (chronic myelocytic leukemia) no chemo at present COVID-19 GERD (gastroesophageal reflux disease) History of COVID-12 Dec 2021 > not hospitalized Hypertension Hypokalemia Hypothyroidism Low platelet count Lymphedema Murmur Paroxysmal A-fib resolved with ablation Pulmonary embolism Aug 2022 > was treated with Eliquis and now finished SVT (supraventricular tachycardia) 01/21/2012: Ablation of typical slow fast AVNRT 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) Family History Grandmother (Paternal) Colorectal cancer Father Myocardial infarction Prostate cancer Denies family history of Ovarian cancer Dementia Breast cancer Social History Smoking Status: Never smoker Second Hand Exposure: No; Hx Alcohol Use: Yes Alcohol type: beer Hx Substance Use: No Preferred Language: Irish Communication Ability: Effective Visual Impairment: Limited Hearing Ability: Normal Disability Attorney Required: No Beliefs That Will Affect Care: None marital status: Current Living Situation: Spouse 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 NAD. Cooperative. HEENT: Atraumatic, normocephalic. Vision/hearing intact Pulm: Diminished, grossly clear. Symmetrical chest rise. No increased work of breathing. No respiratory distress. Cardiac: RRR, -mrg. Radial pulses intact and symmetrical. Abdominal: Nontender, nondistended, soft. BS present. Ext: Bilateral extensive swelling through thigh. L leg with asymmetric swelling, erythema, drainage. Neurovascularly intact. Results & Data Results & Data ([facility]) Vital Signs (Past 12 Hours) Vital Signs Temp Pulse Resp BP Pulse Ox O2 Del Method O2 Flow Rate 01/22/23 17:00 80 21 99 01/22/23 16:30 86 22 109/55 L 99 01/22/23 16:15 89 21 112/50 L 97 01/22/23 16:00 85 24 109/85 92 01/22/23 15:45 90 24 123/57 L 94 01/22/23 16:16 89 L Room Air 01/22/23 16:18 99 Nasal Cannula 2 01/22/23 15:31 92 H 22 133/55 L 95 01/22/23 15:33 96 Room Air 01/22/23 15:32 93 H 01/22/23 14:15 36.4 C L 90 20 107/52 L 100 Room Air PG Care Time/CCT Total # of Minutes Spent Total Time Spent with Patient: Total time spent is greater than 50% in coordination of care (as documented) at patient's floor/unit and/or counseling patient: Coding Level of Care Code 19292 INT INP/OBS CARE 3MIN Diagnoses Cellulitis L03.116 Laterality: left Site of cellulitis: extremity Site of cellulitis of extremity: lower extremity Fever R50.9 Fever type: unspecified Elevated liver enzymes R74.8 Creatinine elevation R79.89 Leukocytosis D72.829 Leukocytosis type: unspecified Anemia D64.9 Anemia type: unspecified type (1) Cellulitis Laterality: left Site of cellulitis: extremity Site of cellulitis of extremity: lower extremity Qualified Code(s): L03.116 - Cellulitis of left lower limb (2) Fever Fever type: unspecified Qualified Code(s): R50.9 - Fever, unspecified (5) Leukocytosis Leukocytosis type: unspecified Qualified Code(s): D72.829 - Elevated white blood cell count, unspecified (6) Anemia Anemia type: unspecified type Qualified Code(s): D64.9 - Anemia, unspecified
[2023-01-22] MEDS ORDERED: NORMOSOL-R 1,000 ML IV SCH (21:17)
[2023-01-22] MEDS: LEVOTHYROXINE SODIUM 137 MCG TABLET PO SCH (21:59)
[2023-01-22] MEDS: HEPARIN SOD 5,000 UNIT/0.5 ML VIAL SQ SCH (22:44)
[2023-01-22] MEDS: PIPERACILLIN/TAZOBACTAM 3.375 GM in DEXTROSE 5% 100 ML IV SCH (23:56)
[2023-01-23 03:26] LABS: Appearance Urine Clear (Clear); Bilirubin Urine Negative (Negative); Blood Urine Negative (Negative); Color Urine Orange; Glucose Urine UA Negative (Negative); Ketones Urine Trace (Negative); Leukocyte Esterase Urine Negative (Negative); Nitrite Urine Negative (Negative); Protein Urine Negative (Negative); Specific Gravity Urine 1.021 (1.000-1.030); Urobilinogen Urine Negative (Negative)
[2023-01-23 03:44] LABS: Creatinine Urine Random 169.4 mg/dl
[2023-01-23 06:05] LABS: Basophils # (auto) 0.05 K/uL (0-0.2); Basophils % (auto) 0.3 %; Eosinophils # (auto) 0.22 K/uL (0-0.50); Eosinophils % (auto) 1.4 %; Hematocrit (blood only) 26.3 % (42.0-52.0); Hemoglobin 9.2 g/dl (14.0-18.0); Immature Granulocytes % (auto) 0.7 %; Lymphocytes # (auto) 0.99 K/uL (1.2-3.4); Lymphocytes % (auto) 6.4 %; Mean Corpuscular Hemoglobin 35.1 pg (25.0-34.0); Mean Corpuscular Volume 100.4 fL (80.0-100.0); Mean Platelet Volume 10.2 fL (9.4-12.4); Monocytes % (auto) 5.9 %; Neutrophils # (auto) 13.11 K/uL (1.40-6.50); Neutrophils % (auto) 85.3 %; Platelet Count 121 K/uL (130-400); RDW Coefficient of Variation 16.4 % (11.5-14.5); RDW Standard Deviation 60.9 fL (36.4-46.3); Red Blood Count 2.62 M/uL (4.70-6.10); White Blood Count 15.37 K/ul (4.8-10.8)
[2023-01-23 06:14] LABS: BUN Creatinine Ratio 22.9 (10-20); C Reactive Protein 16.24 mg/dl (0-0.5); Calcium 8.8 mg/dl (8.5-10.1); Est GFR (African American) 36.3 ml/min; Est GFR (Non-African American) 31.3 ml/min
[2023-01-23] MEDS: HEPARIN SOD 5,000 UNIT/0.5 ML VIAL SQ SCH ×3 (06:39→20:38)
[2023-01-23] MEDS: METOPROLOL SUCC 50MG EXT REL TAB PO SCH (08:15)
[2023-01-23] MEDS: PIPERACILLIN/TAZOBACTAM 3.375 GM in DEXTROSE 5% 100 ML IV SCH ×2 (08:16→16:36)
[2023-01-23] MEDS: allopurinoL 300 MG TAB PO SCH (10:36)
--- NOTE | 2023-01-23 12:00 | Hospitalist Progress Note ---
Date of Service January 23, 2023 Assessment & Plan (1) Cellulitis: Plan: Lower extremity cellulitis, on a background of severe lymphedema -Admitted after failed outpatient management Lactate elevated, downtrending after fluids and antibiotics Procalcitonin 6.84 on admission -Wound gram stain positive for Klebsiella and Pseudomonas, parra sensitive - Continue zosyn/dapto. Tolerating well, childhood allergic of PCN - Wound care and ID consulted (2) Creatinine elevation: Plan: Baseline creatinine previously less than 1.35, had increased in December to 1.84 and remains elevated at 1.99 on admission could be Prerenal in the setting of infection versus developing chronic kidney injury Urine protein, albumin, sodium, osmolality pending Nephrology consulted Bumex held Spironolactone held (3) Cirrhosis: Plan: Mildly elevated liver enzymes will continue to follow (4) Lymphedema: Plan: Said he developed lymphedema following chemo and radio therapy for his cancer (5) Right heart failure: Plan: Carries a diagnosis of CHF Appears compensated Home Bumex on hold on account of pre renal ANNA Will monitor I/O daily weights (6) Leukocytosis: (7) Anemia: (8) Elevated liver enzymes: (9) Fever: Plan Continue hospitalization full code Heparin for DVT Admission and Anticipated Discharge Date Admission Date: January 22, 2023 Subjective patient seen and examined, denies fevers or chills Review of Systems Review of Systems: All systems reviewed are negative, apart from the ones contained in the history. Physical Exam Physical Exam: The patient is awake, alert and oriented 3, well developed and well nourished, normocephalic and atraumatic, lying in bed and in no acute distress. HEENT--PERRL, EOMI, mucous membranes and oropharynx mildly dry Neck--supple. No JVD. No bruits. Thyroid normal, trachea midline, no chris opathy. Heart--normal S1 and S2. No murmurs, rubs or gallops. Lungs--clear bilaterally, no respiratory distress, no accessory muscle use. Abdomen--normal bowel sounds and soft. Mild epigastric and left sided abdominal pain Extremities--bilateral lymphedema, left LE wound, with dressing Dermatologic--normal skin turgor, normal color, no abnormal lymph nodes, no rash. Neurologic--cranial nerves II through XII grossly intact. Rheumatologic--normal range of motion. Psychiatric--normal affect. Results & Data Results & Data ([facility]) Vital Signs (Past 12 Hours) Vital Signs Pulse Pulse Resp BP BP Pulse Ox O2 Del Method 01/23/23 10:22 85 16 101/36 L 95 Room Air 01/23/23 07:57 94 H 16 117/53 L 94 Room Air 01/23/23 07:50 Room Air 01/23/23 07:29 85 01/23/23 06:40 88 16 120/50 L 93 Room Air 01/23/23 03:13 90 18 134/53 L 92 Room Air PG Care Time/CCT Total # of Minutes Spent Total Time Spent with Patient: Total time spent is greater than 50% in coordination of care (as documented) at patient's floor/unit and/or counseling patient: Coding Level of Care Code 25124 SUB INP/OBS CARE 2/35MIN Diagnoses Cellulitis L03.116 Laterality: left Site of cellulitis: extremity Site of cellulitis of extremity: lower extremity Creatinine elevation R79.89 Cirrhosis K74.60 Lymphedema I89.0 Right heart failure I50.810 Leukocytosis D72.829 Leukocytosis type: unspecified Anemia D64.9 Anemia type: unspecified type Elevated liver enzymes R74.8 Fever R50.9 Fever type: unspecified Time Spent (min) 35 (1) Cellulitis Laterality: left Site of cellulitis: extremity Site of cellulitis of extremity: lower extremity Qualified Code(s): L03.116 - Cellulitis of left lower limb (6) Leukocytosis Leukocytosis type: unspecified Qualified Code(s): D72.829 - Elevated white bl ood cell count, unspecified (7) Anemia Anemia type: unspecified type Qualified Code(s): D64.9 - Anemia, unspecified (9) Fever Fever type: unspecified Qualified Code(s): R50.9 - Fever, unspecified
--- NOTE | 2023-01-23 12:58 | Infectious Disease Consult ---
Date of Consultation January 23, 2023 Assessment & Plan (1) Cellulitis: #L leg cellulitis #Lymphedema, Venous insufficiency #L leg wound #CKD? #Leukocytosis 67-year-old male with a past medical history of Afib, CKD, venous insufficiency, CML, PAD, GERD who presented to [facility] on 01/22 with left lower swelling erythema. ID consulted for cellulitis. Patient has h/o lymphedema and is followed at wound clinic. 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 He was nauseated, had a fever not recorded and felt weak. The patient states that his left leg began giving him trouble when he had it wrapped by the wound center 2 days FORESTRY TECHNICIAN. Since the wrapping, he has noticed the increasing swelling, increasing pain. He thought maybe the wrap was too tight. In the ED, WBC 17, platelets 121. Creatinine 1.9 (cr in 2021 0.9, cr in 01/14 1.84) and elevated lactic acid. COVID, influenza and RSV test were negative. CXR vascular congestion. Left lower extremity ultrasound does not show findings of DVT. Patient received IV cefepime, IV Zosyn and then IV daptomycin. Patient has Penicillin allergy as a child. 01/22 Blood cultures NGTD 12/16 Left leg wound cx PSA (I Cefepime) and klebsiella pneumonaie, pansensitive 09/09/22 Lef leg wound Serratia marcescens pansensitive and Pseudomonas aeruginosa I Gentamicin Discussion: Based on prior cultures I think focused therapy on Pseudomonas is appropriate, I would add MRSA nares if negative we can dc Daptomycin (2) Fever: (3) Leukocytosis: (4) Venous ulcers of both lower extremities: Plan -C/W Zosyn to cover h/o PSA -C/W Daptomycin, check MRSA nares (I have ordered) -F/U Blood cultures Will d/w Dr. Mullins ID will follow Angely Gonzales MD Infectious Diseases [facility] Consultation Information This patient recommendation is based on a telemedicine consult request which was completed asynchronously through chart review and information provided by the primary physician. The patient was not seen or examined today. The evaluation is consultative in nature and all patient care and treatment decisions can either be accepted or rejected by the patient's primary hospital-based treating physician using their own independent medical judgment for their patient. Shooting Gallery Operator contact information: Please call ID Connect Call Center . (Phone Number For Physician Use Only) Time Spent Reviewing Chart: 31+ minutes History of Present Illness Reason for Consultation: Cellulitis of Leg Requesting Physician: Guru Mullins MD Attending Physician: Guru Mullins MD History of Present Illness 67-year-old male with a past medical history of Afib, CKD, venous insufficiency, CML, PAD, GERD who presented to [facility] on 01/22 with left lower swelling erythema. ID consulted for cellulitis. Patient has h/o lymphedema and is followed at wound clinic. 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 He was nauseated, had a fever not recorded and felt weak. The patient states that his left leg began giving him trouble when he had it wrapped by the wound center 2 days FORESTRY TECHNICIAN. Since the wrapping, he has noticed the increasing swelling, increasing pain. He thought maybe the wrap was too tight. In the ED, WBC 17, platelets 121. Creatinine 1.9 (cr in 2021 0.9, cr in 01/14 1.84) and elevated lactic acid. COVID, influenza and RSV test were negative. CXR vascular congestion. Left lower extremity ultrasound does not show findings of DVT. Patient received IV cefepime, IV Zosyn and then IV daptomycin. Patient has Penicillin allergy as a child. 01/22 Blood cultures NGTD 12/16 Left leg wound cx PSA (I Cefepime) and klebsiella pneumonaie, pansensitive 09/09/22 Lef leg wound Serratia marcescens pansensitive and Pseudomonas aeruginosa I Gentamicin Allergies Allergy/AdvReac Type Severity Reaction Status Date / Time bee venom protein (honey bee) Allergy Severe DYSPNEA;SWE Verified 01/22/23 18:17 LLING latex Allergy Intermediate Rash Verified 01/22/23 18:17 Penicillins Allergy Unknown HAPPENED Verified 01/22/23 18:17 A CHILD Home Medications Medication Instructions Recorded Confirmed Type epinephrine 0.3 mg/0.3 mL 0.3 mg (0.3 mL) IM Q10M PRN 08/06/21 01/22/23 Rx injection, auto-injector (EpiPen anaphylaxis #2 ea [id number]) tadalafil 20 mg tablet 20 mg PO DAILY PRN Erectile 08/06/21 01/22/23 History Dysfunction triamcinolone acetonide 0.1 % 1 applic topical DAILY PRN Skin 02/08/22 01/22/23 Rx topical ointment Irritation #80 grams metoprolol succinate 100 mg 50 mg PO QAM 04/24/22 01/22/23 History tablet,extended release 24 hr levothyroxine 137 mcg tablet 137 mcg PO QPM 09/02/22 01/22/23 History menthol 0.44 %-zinc oxide 20.6 % 1 applic EXT DIRECTED 09/17/22 01/22/23 History topical ointment (Calmoseptine) bumetanide 2 mg tablet 2 mg PO BID 10/04/22 01/22/23 History magnesium 250 mg tablet 250 mg PO BID 10/31/22 01/22/23 History spironolactone 100 mg tablet 100 mg PO QAM #90 tabs 10/31/22 01/22/23 Rx allopurinol 300 mg tablet 300 mg PO QDL 01/07/23 01/22/23 History mesalamine 0.375 gram 1.5 g PO QDL 01/07/23 01/22/23 History capsule,extended release 24 hr Patient History Medical History Acute kidney injury Atrial flutter 10/02/2020: Ablation of typical right atrial isthmus dependent flutter. 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) Family History Grandmother (Paternal) Colorectal cancer Father Myocardial infarction Prostate cancer Denies family history of Ovarian cancer Dementia Breast cancer Social History Smoking Status: Never smoker Second Hand Exposure: No; Hx Alcohol Use: Yes Alcohol type: beer Hx Substance Use: No Preferred Language: German Communication Ability: Effective Visual Impairment: Limited Hearing Ability: Normal Retirement Sales Consultant Required: No Beliefs That Will Affect Care: None marital status: Current Living Situation: Spouse Current Living Situation Comment: Lives with who has her own healthcare issues 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 How many Children do You have: 2 Feels Safe at Home: Yes Safety Concerns: Feels Safe At This Time Childhood Exposure to Second-Hand Smoke: No Diet Comment: 2000 cc fluid restriction during the past year weight has: increased > 10 lbs Dental Care, Regularly: Yes Physical Activity Frequency: Daily Seatbelt Use: always Sunscreen Use: Yes Assistive Devices: Cane Results & Data ([facility]) Vital Signs (Past 12 Hours) Vital Signs Pulse Pulse Resp BP BP Pulse Ox O2 Del Method 01/23/23 10:22 85 16 101/36 L 95 Room Air 01/23/23 07:57 94 H 16 117/53 L 94 Room Air 01/23/23 07:50 Room Air 01/23/23 07:29 85 01/23/23 06:40 88 16 120/50 L 93 Room Air 01/23/23 03:13 90 18 134/53 L 92 Room Air Laboratory Results Laboratory Results - last 48 hr 01/22/23 01/22/23 01/22/23 15:20 15:20 15:20 WBC 17.48 H RBC 2.80 L Hgb 9.7 L Hct 28.8 L MCV 102.9 H MCH 34.6 H MCHC 33.7 RDW Std Deviation 62.8 H RDW Coeff of Howie 16.5 H Plt Count 121 L MPV 10.7 Immature Gran % (Auto) 0.6 Neut % (Auto) 88.4 Lymph % (Auto) 5.7 [place] % (Auto) 4.6 Eos % (Auto) 0.4 Baso % (Auto) 0.3 Neut # (Auto) 15.46 H Lymph # (Auto) 0.99 L [place] # (Auto) 0.80 H Eos # (Auto) 0.07 Baso # (Auto) 0.06 Immature Gran # (Auto) 0.10 PT 17.3 H INR 1.7 H APTT 33.4 H PTT Ratio 1.2 Sodium 131 L Potassium 4.3 Chloride 93 L Carbon Dioxide 29 Anion Gap 9 BUN 43 H Creatinine 1.99 H Est Cr Clr Drug Dosing 50.9 Est GFR ( Amer) 39.7 Est GFR (Non-Af Amer) 34.2 BUN/Creatinine Ratio 21.6 H Glucose 139 H Osmolality Lactate Calcium 9.4 Magnesium 2.0 Total Bilirubin 6.7 H Direct Bilirubin 2.2 H AST 36 ALT 15 Alkaline Phosphatase 69 Troponin I High Sens 56.4 H* C-Reactive Protein Total Protein 7.7 Albumin 3.6 Procalcitonin Urine Color Urine Appearance Urine pH Ur Specific [place] Urine Protein Urine Glucose (UA) Urine Ketones Urine Blood Urine Nitrite Urine Bilirubin Urine Urobilinogen Ur Leukocyte Esterase Urine Osmolality Ur Random Creatinine Ur Random Sodium SARS-CoV-2 (PCR) Influenza Type A (PCR) Influenza Type B (PCR) RSV (RT-PCR) 01/22/23 01/22/23 01/22/23 15:20 15:20 15:20 WBC RBC Hgb Hct MCV MCH MCHC RDW Std Deviation RDW Coeff of Howie Plt Count MPV Immature Gran % (Auto) Neut % (Auto) Lymph % (Auto) [place] % (Auto) Eos % (Auto) Baso % (Auto) Neut # (Auto) Lymph # (Auto) [place] # (Auto) Eos # (Auto) Baso # (Auto) Immature Gran # (Auto) PT INR APTT PTT Ratio Sodium Potassium Chloride Carbon Dioxide Anion Gap BUN Creatinine Est Cr Clr Drug Dosing Est GFR ( Amer) Est GFR (Non-Af Amer) BUN/Creatinine Ratio Glucose Osmolality 290 Lactate 3.2 H* Calcium Magnesium Total Bilirubin Direct Bilirubin AST ALT Alkaline Phosphatase Troponin I High Sens C-Reactive Protein Total Protein Albumin Procalcitonin 6.84 H Urine Color Urine Appearance Urine pH Ur Specific [place] Urine Protein Urine Glucose (UA) Urine Ketones Urine Blood Urine Nitrite Urine Bilirubin Urine Urobilinogen Ur Leukocyte Esterase Urine Osmolality Ur Random Creatinine Ur Random Sodium SARS-CoV-2 (PCR) Influenza Type A (PCR) Influenza Type B (PCR) RSV (RT-PCR) 01/22/23 01/22/23 01/22/23 15:36 18:50 20:00 WBC RBC Hgb Hct MCV MCH MCHC RDW Std Deviation RDW Coeff of Howie Plt Count MPV Immature Gran % (Auto) Neut % (Auto) Lymph % (Auto) [place] % (Auto) Eos % (Auto) Baso % (Auto) Neut # (Auto) Lymph # (Auto) [place] # (Auto) Eos # (Auto) Baso # (Auto) Immature Gran # (Auto) PT INR APTT PTT Ratio Sodium Potassium Chloride Carbon Dioxide Anion Gap BUN Creatinine Est Cr Clr Drug Dosing Est GFR ( Amer) Est GFR (Non-Af Amer) BUN/Creatinine Ratio Glucose Osmolality Lactate 2.5 H* 2.3 H* Calcium Magnesium Total Bilirubin Direct Bilirubin AST ALT Alkaline Phosphatase Troponin I High Sens C-Reactive Protein Total Protein Albumin Procalcitonin Urine Color Urine Appearance Urine pH Ur Specific [place] Urine Protein Urine Glucose (UA) Urine Ketones Urine Blood Urine Nitrite Urine Bilirubin Urine Urobilinogen Ur Leukocyte Esterase Urine Osmolality Ur Random Creatinine Ur Random Sodium SARS-CoV-2 (PCR) NEGATIVE Influenza Type A (PCR) Negative Influenza Type B (PCR) Negative RSV (RT-PCR) Negative 01/22/23 01/23/23 01/23/23 Unknown 02:55 02:55 WBC RBC Hgb Hct MCV MCH MCHC RDW Std Deviation RDW Coeff of Howie Plt Count MPV Immature Gran % (Auto) Neut % (Auto) Lymph % (Auto) [place] % (Auto) Eos % (Auto) Baso % (Auto) Neut # (Auto) Lymph # (Auto) [place] # (Auto) Eos # (Auto) Baso # (Auto) Immature Gran # (Auto) PT INR APTT PTT Ratio Sodium Potassium Chloride Carbon Dioxide Anion Gap BUN Creatinine Est Cr Clr Drug Dosing Est GFR ( Amer) Est GFR (Non-Af Amer) BUN/Creatinine Ratio Glucose Osmolality Lactate 2.1 H* Calcium Magnesium Total Bilirubin Direct Bilirubin AST ALT Alkaline Phosphatase Troponin I High Sens C-Reactive Protein Total Protein Albumin Procalcitonin Urine Color [place] Urine Appearance Clear Urine pH 5.0 Ur Specific [place] 1.021 Urine Protein Negative Urine Glucose (UA) Negative Urine Ketones Trace H Urine Blood Negative Urine Nitrite Negative Urine Bilirubin Negative Urine Urobilinogen Negative Ur Leukocyte Esterase Negative Urine Osmolality 345 L Ur Random Creatinine Ur Random Sodium SARS-CoV-2 (PCR) Influenza Type A (PCR) Influenza Type B (PCR) RSV (RT-PCR) 01/23/23 01/23/23 01/23/23 02:55 05:29 05:29 WBC 15.37 H RBC 2.62 L Hgb 9.2 L Hct 26.3 L MCV 100.4 H MCH 35.1 H MCHC 35.0 RDW Std Deviation 60.9 H RDW Coeff of Howie 16.4 H Plt Count 121 L MPV 10.2 Immature Gran % (Auto) 0.7 Neut % (Auto) 85.3 Lymph % (Auto) 6.4 [place] % (Auto) 5.9 Eos % (Auto) 1.4 Baso % (Auto) 0.3 Neut # (Auto) 13.11 H Lymph # (Auto) 0.99 L [place] # (Auto) 0.90 H Eos # (Auto) 0.22 Baso # (Auto) 0.05 Immature Gran # (Auto) 0.10 PT INR APTT PTT Ratio Sodium 128 L Potassium 4.0 Chloride 92 L Carbon Dioxide 30 Anion Gap 6 BUN 49 H Creatinine 2.14 H Est Cr Clr Drug Dosing 46.0 Est GFR ( Amer) 36.3 Est GFR (Non-Af Amer) 31.3 BUN/Creatinine Ratio 22.9 H Glucose 138 H Osmolality Lactate Calcium 8.8 Magnesium Total Bilirubin Direct Bilirubin AST ALT Alkaline Phosphatase Troponin I High Sens C-Reactive Protein 16.24 H Total Protein Albumin Procalcitonin Urine Color Urine Appearance Urine pH Ur Specific [place] Urine Protein Urine Glucose (UA) Urine Ketones Urine Blood Urine Nitrite Urine Bilirubin Urine Urobilinogen Ur Leukocyte Esterase Urine Osmolality Ur Random Creatinine 169.4 Ur Random Sodium 14 SARS-CoV-2 (PCR) Influenza Type A (PCR) Influenza Type B (PCR) RSV (RT-PCR) 01/23/23 05:29 WBC RBC Hgb Hct MCV MCH MCHC RDW Std Deviation RDW Coeff of Howie Plt Count MPV Immature Gran % (Auto) Neut % (Auto) Lymph % (Auto) [place] % (Auto) Eos % (Auto) Baso % (Auto) Neut # (Auto) Lymph # (Auto) [place] # (Auto) Eos # (Auto) Baso # (Auto) Immature Gran # (Auto) PT INR APTT PTT Ratio Sodium Potassium Chloride Carbon Dioxide Anion Gap BUN Creatinine Est Cr Clr Drug Dosing Est GFR ( Amer) Est GFR (Non-Af Amer) BUN/Creatinine Ratio Glucose Osmolality Lactate Calcium Magnesium Total Bilirubin Direct Bilirubin AST ALT Alkaline Phosphatase Troponin I High Sens C-Reactive Protein Total Protein Albumin Procalcitonin 9.26 H Urine Color Urine Appearance Urine pH Ur Specific [place] Urine Protein Urine Glucose (UA) Urine Ketones Urine Blood Urine Nitrite Urine Bilirubin Urine Urobilinogen Ur Leukocyte Esterase Urine Osmolality Ur Random Creatinine Ur Random Sodium SARS-CoV-2 (PCR) Influenza Type A (PCR) Influenza Type B (PCR) RSV (RT-PCR) Medications Administered Current Inpatient Medications Allopurinol (Allopurinol 300 Mg Tab) 300 mg PO QDL [facility] Stop: 02/22/23 11:29 Last Admin: 01/23/23 10:36 Dose: 300 mg Heparin Sodium (Porcine) (Heparin Sod 5,000 Unit/0.5 Ml Vial) 7,500 units SQ Q8 [facility] Stop: 02/21/23 21:59 Last Admin: 01/23/23 06:39 Dose: 7,500 units Piperacillin Sod/Tazobactam (Sod 3.375 gm/ Dextrose) 115 mls @ 28.75 mls/hr IV Q8H [facility]; Protocol Stop: 01/30/23 00:00 Last Infusion: 01/23/23 12:17 Dose: Infused Daptomycin 575 mg/ Syringe 11.5 mls @ 5.75 mls/min IV Q24H [facility]; Protocol Stop: 01/30/23 17:59 Levothyroxine Sodium (Levothyroxine Sodium 137 Mcg Tablet) 137 mcg PO QPM [facility] Stop: 02/21/23 21:16 Last Admin: 01/22/23 21:59 Dose: 137 mcg Metoprolol Succinate (Metoprolol Succ 50mg Ext Rel Tab) 50 mg PO QAM [facility] Stop: 02/22/23 08:59 Last Admin: 01/23/23 08:15 Dose: 50 mg (1) Cellulitis Laterality: left Site of cellulitis: extremity Site of cellulitis of extremity: lower extremity Qualified Code(s): L03.116 - Cellulitis of left lower limb (2) Fever Fever type: unspecified Qualified Code(s): R50.9 - Fever, unspecified (3) Leukocytosis Leukocytosis type: unspecified Qualified Code(s): D72.829 - Elevated white blood cell count, unspecified
[2023-01-23] MEDS ORDERED: HEPARIN SOD 5,000 UNIT/0.5 ML VIAL SQ STA (15:56)
[2023-01-23] MEDS: DAPTOmycin 575 MG in SYRINGE 0 ML IV SCH (17:06)
[2023-01-23] MEDS: LEVOTHYROXINE SODIUM 137 MCG TABLET PO SCH (20:37)
[2023-01-23 22:32] LABS: A calco-baum cmplx NotReported Not Detected (NotDetected); Bact fragilis Not Reported Not Detected (NotDetected); C auris Not Reported Not Detected (NotDetected); Calbicans Not Reported Not Detected (NotDetected); Candida glabrata Not Reported Not Detected (NotDetected); Candida krusei Not Reported Not Detected (NotDetected); Cneoformans/gatti Not Reported Not Detected (NotDetected); Cparapsilosis Not Reported Not Detected (NotDetected); Ctropicalis Not Reported Not Detected (NotDetected); E cloacae compx Not Reported Not Detected (NotDetected); Efaecalis Not Reported Not Detected (NotDetected); Efaecium Not Reported Not Detected (NotDetected); Enterobacterales Not Reported Not Detected (NotDetected); Escherichia coli Not Reported Not Detected (NotDetected); H influenzae Not Reported Not Detected (NotDetected); K aerogenes Not Reported Not Detected (NotDetected); Koxytoca Not Reported Not Detected (NotDetected); Kpneumoniae grp Not Reported Not Detected (NotDetected); Lmonocyt Not Reported Not Detected (NotDetected); N meningitidis Not Reported Not Detected (NotDetected); P aeruginosa Not Reported Not Detected (NotDetected); Proteus spp Not Reported Not Detected (NotDetected); Salmonella spp Not Reported Not Detected (NotDetected); Smarcescens Not Reported Not Detected (NotDetected); Staph lugdunensis Not Reported Not Detected (NotDetected); Staph spp. Not Reported Not Detected (NotDetected); Staphaureus Not Reported Not Detected (NotDetected); Staphepi Not Reported Not Detected (NotDetected); Stenmaltophilia Not Reported Not Detected (NotDetected); Strep agal(GrpB) Not Reported Not Detected (NotDetected); Strep pneum Not Reported Not Detected (NotDetected); Strep pyog (GrpA) Not Reported Not Detected (NotDetected); Strep spp Not Reported Not Detected (NotDetected)
[2023-01-24] MEDS: PIPERACILLIN/TAZOBACTAM 3.375 GM in DEXTROSE 5% 100 ML IV SCH ×4 (00:23→23:53)
[2023-01-24 01:46] LABS: Creatinine Urine Random 166.7 mg/dl; Microalbumin Creatinine Ratio 6.2 mcg/mg (0-30); Microalbumin Urine 10.4 mg/L
[2023-01-24] MEDS: HEPARIN SOD 5,000 UNIT/0.5 ML VIAL SQ SCH ×3 (06:34→21:15)
[2023-01-24 07:13] LABS: Hematocrit (blood only) 24.9 % (42.0-52.0); Hemoglobin 8.8 g/dl (14.0-18.0); Mean Corpuscular Hemoglobin 34.6 pg (25.0-34.0); Mean Corpuscular Hgb Conc 35.3 g/dL (32.0-36.0); Mean Platelet Volume 10.3 fL (9.4-12.4); Platelet Count 123 K/uL (130-400); RDW Coefficient of Variation 15.4 % (11.5-14.5); RDW Standard Deviation 55.3 fL (36.4-46.3); Red Blood Count 2.54 M/uL (4.70-6.10); White Blood Count 12.05 K/ul (4.8-10.8)
[2023-01-24 07:39] LABS: BUN Creatinine Ratio 24.3 (10-20); Creatinine Clr Calc Pharmacy 42.4 ml/min; Est GFR (African American) 31.8 ml/min; Est GFR (Non-African American) 27.4 ml/min; Potassium 4.1 mmol/L (3.5-5.1)
--- NOTE | 2023-01-24 09:09 | Surgery Progress Note ---
Date of Service January 24, 2023 Assessment & Plan (1) Hemangioma: Plan: sutures removed today from right upper arm. his incision is healing well. he was instructed to call our office when he is discharged and he can follow-up with us in office just to make sure that he continues to heal well. Admission and Anticipated Discharge Date Admission Date: January 22, 2023 Subjective Rodríguez is 2 weeks s/p right upper arm hemangioma excision. He has been hospitalized with lower extremity cellulitis. He was due for suture removal and was seen in room 238. He reports that overall he is doing well. Physical Exam Physical Exam: On physical exam- healing incision of right upper arm. Monocryl knots removed. Incision is clean, dry, intact and well-approximated. There are no signs of infection or evidence of dehiscence. Optifoam dressing was placed. Results & Data ([facility]) Vital Signs (Past 12 Hours) Vital Signs Temp Pulse Pulse Resp BP Pulse Ox O2 Del Method 01/24/23 08:00 82 01/24/23 07:38 36.8 C 82 18 117/64 96 Room Air 01/24/23 03:27 36.7 C 83 20 116/67 93 Room Air 01/23/23 23:24 36.5 C 79 20 111/68 95 Room Air PG Care Time/CCT Total # of Minutes Spent Total Time Spent with Patient: Total time spent is greater than 50% in coordination of care (as documented) at patient's floor/unit and/or counseling patient: Coding Level of Care Code None Diagnoses Hemangioma D18.00
[2023-01-24] MEDS: METOPROLOL SUCC 50MG EXT REL TAB PO SCH (10:27)
[2023-01-24] MEDS: allopurinoL 300 MG TAB PO SCH (12:15)
[2023-01-24] MEDS: MAGNESIUM OXIDE 400 MG TAB PO SCH ×2 (14:40→21:15)
--- NOTE | 2023-01-24 14:58 | Infectious Disease Progress Nt ---
Date of Service January 24, 2023 Assessment & Plan (1) Cellulitis: Plan: #Gram negative bacteremia, BCID negative #L leg cellulitis #Lymphedema, Venous insufficiency #L leg wound #CKD? #Leukocytosis 67-year-old male with a past medical history of Afib, CKD, venous insufficiency, CML, PAD, GERD who presented to [facility] on 01/22 with left lower swelling erythema. ID consulted for cellulitis. Patient has h/o lymphedema and is followed at wound clinic. 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 He was nauseated, had a fever not recorded and felt weak. The patient states that his left leg began giving him trouble when he had it wrapped by the wound center 2 days RESEARCH EXECUTIVE. Since the wrapping, he has noticed the increasing swelling, increasing pain. He thought maybe the wrap was too tight. In the ED, WBC 17, platelets 121. Creatinine 1.9 (cr in 2021 0.9, cr in 01/14 1.84) and elevated lactic acid. COVID, influenza and RSV test were negative. CXR vascular congestion. Left lower extremity ultrasound does not show findings of DVT. Patient received IV cefepime, IV Zosyn and then IV daptomycin. Patient has Penicillin allergy as a child. 01/22 Blood cultures 11/27 bottles are GNB, BCID is negative 12/16 Left leg wound cx PSA (I Cefepime) and klebsiella pneumonaie, pansensitive 09/09/22 Lef leg wound Serratia marcescens pansensitive and Pseudomonas aeruginosa I Gentamicin Discussion: He is growing Gram negative rods in blood and BCID is negative this may be d/t organism not picked up by BCID. I would continue him on IV Zosyn to cover. I spoke to Microbiology and organism should hopefully IDd this weekend (2) Fever: (3) Leukocytosis: (4) Venous ulcers of both lower extremities: Plan -C/W Zosyn to cover Gram negative Bacilli, Please watch GFR is it worsens may need to decrease dose (please review with pharmacy this weekend) -C/W Daptomycin, check MRSA nares (I have ordered) -F/U Blood cultures speciation for 01/22 -I Have ordered blood cultures for 01/24 D/W primary team. Available by page this , will RT service on Friday ID will follow Angely Gonzales MD Infectious Diseases [facility] Admission and Anticipated Discharge Date Admission Date: January 22, 2023 Subjective This patient recommendation is based on a telemedicine consult request which was completed asynchronously through chart review and information provided by the primary physician. The patient was not seen or examined today. The evaluation is consultative in nature and all patient care and treatment decisions can either be accepted or rejected by the patient's primary hospital-based treating physician using their own independent medical judgment for their patient. Time Spent Reviewing Chart: 21 - 30 minutes BCID negative But Blood cultures growing Gram negative Bacilli Results & Data ([facility]) Vital Signs (Past 12 Hours) Vital Signs Temp Pulse Pulse Resp BP Pulse Ox O2 Del Method 01/24/23 12:01 36.7 C 77 20 125/66 94 Room Air 01/24/23 10:00 Room Air 01/24/23 08:00 82 01/24/23 07:38 36.8 C 82 18 117/64 96 Room Air 01/24/23 03:27 36.7 C 83 20 116/67 93 Room Air Laboratory Results Short CBC 01/24/23 Range/Units 06:45 WBC 12.05 H (4.8-10.8) K/ul Hgb 8.8 L (14.0-18.0) g/dl Hct 24.9 L (42.0-52.0) % Plt Count 123 L (130-400) K/uL BMP 01/24/23 06:45 Sodium 126 L Potassium 4.1 Chloride 90 L Carbon Dioxide 30 BUN 58 H Creatinine 2.39 H Glucose 120 H Calcium 9.0 Microbiology 01/22/23 15:20 Blood Aerobic Blood Culture - Preliminary Gram negative bacilli 01/22/23 15:20 Blood Anaerobic Blood Culture - Preliminary No growth in Anaerobic bottle after 24 hours. 01/22/23 15:02 Blood Aerobic Blood Culture - Preliminary No growth in Aerobic bottle after 24 hours. 01/22/23 15:02 Blood Anaerobic Blood Culture - Preliminary No growth in Anaerobic bottle after 24 hours. Laboratory Tests 01/22/23 15:20 Bld Cult ID Panel PCR PCR Panel Negative Medications Administered Current Inpatient Medications Allopurinol (Allopurinol 300 Mg Tab) 300 mg PO QDL [facility] Stop: 02/22/23 11:29 Last Admin: 01/24/23 12:15 Dose: 300 mg Heparin Sodium (Porcine) (Heparin Sod 5,000 Unit/0.5 Ml Vial) 7,500 units SQ Q8 [facility] Stop: 02/22/23 21:59 Last Admin: 01/24/23 14:40 Dose: 7,500 units Piperacillin Sod/Tazobactam (Sod 3.375 gm/ Dextrose) 115 mls @ 28.75 mls/hr IV Q8H [facility]; Protocol Stop: 01/30/23 00:00 Last Infusion: 01/24/23 13:58 Dose: Infused Daptomycin 575 mg/ Syringe 11.5 mls @ 5.75 mls/min IV Q24H [facility]; Protocol Stop: 01/30/23 17:59 Last Admin: 01/23/23 17:06 Dose: 5.75 mls/min Levothyroxine Sodium (Levothyroxine Sodium 137 Mcg Tablet) 137 mcg PO QPM [facility] Stop: 02/21/23 21:16 Last Admin: 01/23/23 20:37 Dose: 137 mcg Magnesium Oxide (Magnesium Oxide 400 Mg Tab) 400 mg PO BID [facility] Stop: 02/23/23 13:56 Last Admin: 01/24/23 14:40 Dose: 400 mg Metoprolol Succinate (Metoprolol Succ 50mg Ext Rel Tab) 50 mg PO QAM [facility] Stop: 02/22/23 08:59 Last Admin: 01/24/23 10:27 Dose: 50 mg (1) Cellulitis Laterality: left Site of cellulitis: extremity Site of cellulitis of extremity: lower extremity Qualified Code(s): L03.116 - Cellulitis of left lower limb (2) Fever Fever type: unspecified Qualified Code(s): R50.9 - Fever, unspecified (3) Leukocytosis Leukocytosis type: unspecified Qualified Code(s): D72.829 - Elevated white blood cell count, unspecified
--- NOTE | 2023-01-24 17:33 | Hospitalist Progress Note ---
Date of Service January 24, 2023 Assessment & Plan (1) Cellulitis: Plan: Lower extremity cellulitis, on a background of severe lymphedema -Admitted after failed outpatient management Lactate elevated, downtrending after fluids and antibiotics Procalcitonin 6.84 on admission -Wound gram stain positive for Klebsiella and Pseudomonas, parra sensitive - Continue zosyn/dapto. Tolerating well, childhood allergic of PCN - Wound care and ID consulted 01/24/2023-ID input noted Continue Zosyn in combination with daptomycin Follow identification cultures with sensitivity testing (2) Creatinine elevation: Plan: Baseline creatinine previously less than 1.35, had increased in December to 1.84 and remains elevated at 1.99 on admission could be Prerenal in the setting of infection versus developing chronic kidney injury Urine protein, albumin, sodium, osmolality pending Nephrology consulted Bumex held Spironolactone held (3) Cirrhosis: Plan: Mildly elevated liver enzymes will continue to follow (4) Lymphedema: Plan: Said he developed lymphedema following chemo and radio therapy for his cancer (5) Right heart failure: Plan: Carries a diagnosis of CHF Appears compensated Home Bumex on hold on account of pre renal ANNA Will monitor I/O daily weights (6) Leukocytosis: (7) Anemia: (8) Elevated liver enzymes: (9) Fever: Plan Continue hospitalization full code Heparin for DVT Admission and Anticipated Discharge Date Admission Date: January 22, 2023 Subjective Patient seen and examined Discrepancy between BC ID and blood culture noted No temp spikes But Blood cultures growing Gram negative Bacilli Physical Exam Physical Exam: Head and ENT no thyroid enlargement trachea midline Cardiovascular S1-S2 are normal no S3 Lungs bilateral air entry fair no wheezing Abdomen soft nondistended positive bowel sounds no rebound tenderness Extremity shows trace edema Neurologically no focal deficits Skin shows no rash no cyanosis Results & Data Results & Data ([facility]) Vital Signs (Past 12 Hours) Vital Signs Temp Pulse Pulse Resp BP BP Pulse Ox 01/24/23 17:00 77 01/24/23 15:27 36.5 C 82 19 131/62 97 01/24/23 12:01 36.7 C 77 20 125/66 94 01/24/23 10:00 01/24/23 08:00 82 01/24/23 07:38 36.8 C 82 18 117/64 96 O2 Del Method 01/24/23 17:00 01/24/23 15:27 Room Air 01/24/23 12:01 Room Air 01/24/23 10:00 Room Air 01/24/23 08:00 01/24/23 07:38 Room Air Laboratory Results Short CBC 01/24/23 Range/Units 06:45 WBC 12.05 H (4.8-10.8) K/ul Hgb 8.8 L (14.0-18.0) g/dl Hct 24.9 L (42.0-52.0) % Plt Count 123 L (130-400) K/uL BMP 01/24/23 06:45 Sodium 126 L Potassium 4.1 Chloride 90 L Carbon Dioxide 30 BUN 58 H Creatinine 2.39 H Glucose 120 H Calcium 9.0 PG Care Time/CCT Total # of Minutes Spent Total Time Spent with Patient: Total time spent is greater than 50% in coordination of care (as documented) at patient's floor/unit and/or counseling patient: Coding Level of Care Code 29429 SUB INP/OBS CARE 2MIN Diagnoses Cellulitis L03.116 Laterality: left Site of cellulitis: extremity Site of cellulitis of extremity: lower extremity Creatinine elevation R79.89 Cirrhosis K74.60 Lymphedema I89.0 Right heart failure I50.810 Leukocytosis D72.829 Leukocytosis type: unspecified Anemia D64.9 Anemia type: unspecified type Elevated liver enzymes R74.8 Fever R50.9 Fever type: unspecified (1) Cellulitis Laterality: left Site of cellulitis: extremity Site of cellulitis of extremity: lower extremity Qualified Code(s): L03.116 - Cellulitis of left lower limb (6) Leukocytosis Leukocytosis type: unspecified Qualified Code(s): D72.829 - Elevated white blood cell count, unspecified (7) Anemia Anemia type: unspecified type Qualified Code(s): D64.9 - Anemia, unspecified (9) Fever Fever type: unspecified Qualified Code(s): R50.9 - Fever, unspecified
[2023-01-24] MEDS: DAPTOmycin 575 MG in SYRINGE 0 ML IV SCH (17:50)
[2023-01-24] MEDS: LEVOTHYROXINE SODIUM 137 MCG TABLET PO SCH (21:14)
[2023-01-25] MEDS: HEPARIN SOD 5,000 UNIT/0.5 ML VIAL SQ SCH ×3 (05:31→21:06)
[2023-01-25 06:37] LABS: Hematocrit (blood only) 26.9 % (42.0-52.0); Hemoglobin 9.3 g/dl (14.0-18.0); Mean Corpuscular Hemoglobin 34.3 pg (25.0-34.0); Mean Corpuscular Hgb Conc 34.6 g/dL (32.0-36.0); Mean Corpuscular Volume 99.3 fL (80.0-100.0); Mean Platelet Volume 10.4 fL (9.4-12.4); Platelet Count 133 K/uL (130-400); RDW Coefficient of Variation 15.8 % (11.5-14.5); RDW Standard Deviation 56.1 fL (36.4-46.3); Red Blood Count 2.71 M/uL (4.70-6.10); White Blood Count 10.71 K/ul (4.8-10.8)
[2023-01-25] MEDS: METOPROLOL SUCC 50MG EXT REL TAB PO SCH (08:03)
[2023-01-25] MEDS: PIPERACILLIN/TAZOBACTAM 3.375 GM in DEXTROSE 5% 100 ML IV SCH ×3 (08:03→23:57)
[2023-01-25] MEDS: MAGNESIUM OXIDE 400 MG TAB PO SCH ×2 (08:03→21:07)
[2023-01-25 09:40] LABS: BUN Creatinine Ratio 26.1 (10-20); Creatinine Clr Calc Pharmacy 44.9 ml/min; Est GFR (Non-African American) 29.3 ml/min; Potassium 3.9 mmol/L (3.5-5.1)
--- NOTE | 2023-01-25 10:42 | Nephrology Consultation ---
Date of Consultation January 25, 2023 Assessment & Plan (1) Acute kidney injury: (2) Venous ulcer of left leg: (3) Anemia: (4) Leukocytosis: (5) Cellulitis: Plan 67-year-old gentlemen with h/o stage 3A CKD b/l Cr 1.2 to 1.5,admitted with left LE cellulitis, ANNA, Started empirically on daptomycin 6. Renal function started to worsen actually for last few weeks, last out patient lab showed creatinine 1.8 which progressively worsened down to 2.4 on labs this morning. Electrolyte acceptable. Diuretics has been on hold since admission but he reports decent urine output. blood pressure fair, asymptomatic. -- continue to hold diuretics for now and monitor accurate intake/output and resume diuretics as needed for decreased UO, aim for net even. -- encourage low-salt diet, elevate legs. -- renal panel in am Will follow. Thank you for allowing me to participate in your patient's care. It was a pleasure to see Mustapha. History of Present Illness Reason for Consultation: acute kidney injury. Attending Physician: Ish Galarza MD History of Present Illness Mr. Mustapha Bashir is a 67-year-old male with PMH of diuretic resistant lymphedema volume overload and anasarca, CKD, venous insufficiency, CML, PAD, GERD admitted to [facility] on 01/22 with left lower extremity cellulitis. Nephrology consult was requested as he was noted to have ANNA. EMR records were reviewed in detail during pts visit. Mustapha has history of diuretic resistant lymphedema and left lower extremity has been following with [facility]. He recently had his legs [facility] at [facility] after he noticed some worsening and seeping. The day after he had his leg wrapped he started noticing increase in pain in his left leg and at the same time also noticed erythema. Following day he started noticing some fever and chills and presented to ER for further evaluation. In the ED, WBC 17, platelets 121. Creatinine 1.9 (cr in 2021 0.9, cr in 01/14 1.84) and elevated lactic acid. COVID, influenza and RSV test were negative. CXR showed mild vascular congestion. Left lower extremity ultrasound did not show DVT. Patient received IV cefepime, IV Zosyn and then IV daptomycin Was evaluated by ID and started him empirically on daptomycin and Zosyn. Has stage IIIA CKD baseline creatinine over last few months been 1.2-1.4 with prior history ANNA in July 2021 when he was admitted with diuretic resistant volume overload and anasarca. 2D echo showed normal EF, no significant LVH. Recent outpatient lab showed creatinine 1.8 and on admission creatinine was 2.0 which slowly worsened to 2.4 this morning. No significant proteinuria. Renal imaging showed bilateral cortical atrophy but otherwise unremarkable. No known family history of CKD or ESRD. Nonsmoker. He reports decreased urine output at home over last few weeks despite being on Bumex 2 mg twice a day and spironolactone 100 although he denied any significant weight gain or shortness of breath. Since admission his diuretics has been on hold and he reports decent urine output although unmeasured. He reports he was feeling dehydrated prior to coming to the hospital but feeling better now. Has h/o CML, appendiceal CA s/p R hemicolectomy, atrial fibrillation/flutter, hypothyroidism, Has been in remission, follows with Oncology, off of TKI since 2020 because of significant fluid retention and weight gain. Overall feeling better today, less pain in left LE, no F/C. Allergies Allergy/AdvReac Type Severity Reaction Status Date / Time bee venom protein (honey bee) Allergy Severe DYSPNEA;SWE Verified 01/22/23 18:17 LLING latex Allergy Intermediate Rash Verified 01/22/23 18:17 Penicillins Allergy Unknown HAPPENED Verified 01/22/23 18:17 A CHILD Home Medications Medication Instructions Recorded Confirmed Type epinephrine 0.3 mg/0.3 mL 0.3 mg (0.3 mL) IM Q10M PRN 08/06/21 01/22/23 Rx injection, auto-injector (EpiPen anaphylaxis #2 ea 2-Sb) tadalafil 20 mg tablet 20 mg PO DAILY PRN Erectile 08/06/21 01/22/23 History Dysfunction triamcinolone acetonide 0.1 % 1 applic topical DAILY PRN Skin 02/08/22 01/22/23 Rx topical ointment Irritation #80 grams metoprolol succinate 100 mg 50 mg PO QAM 04/24/22 01/22/23 History tablet,extended release 24 hr levothyroxine 137 mcg tablet 137 mcg PO QPM 09/02/22 01/22/23 History menthol 0.44 %-zinc oxide 20.6 % 1 applic EXT DIRECTED 09/17/22 01/22/23 History topical ointment (Calmoseptine) bumetanide 2 mg tablet 2 mg PO BID 10/04/22 01/22/23 History magnesium 250 mg tablet 250 mg PO BID 10/31/22 01/22/23 History spironolactone 100 mg tablet 100 mg PO QAM #90 tabs 10/31/22 01/22/23 Rx allopurinol 300 mg tablet 300 mg PO QDL 01/07/23 01/22/23 History mesalamine 0.375 gram 1.5 g PO QDL 01/07/23 01/22/23 History capsule,extended release 24 hr Patient History Medical History Acute kidney injury Atrial flutter 10/02/2020: Ablation of typical right atrial isthmus dependent flutter. 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 Giraldo CML (chronic myelocytic leukemia) no chemo at present COVID-19 GERD (gastroesophageal reflux disease) History of COVID-12 Dec 2021 > not hospitalized Hypertension Hypokalemia Hypothyroidism Low platelet count Lymphedema Murmur Paroxysmal A-fib resolved with ablation Pulmonary embolism Aug 2022 > was treated with Eliquis and now finished SVT (supraventricular tachycardia) 01/21/2012: Ablation of typical slow fast AVNRT 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) Family History Grandmother (Paternal) Colorectal cancer Father Myocardial infarction Prostate cancer Denies family history of Ovarian cancer Dementia Breast cancer Social History Smoking Status: Never smoker Second Hand Exposure: No; Hx Alcohol Use: Yes Alcohol type: beer Hx Substance Use: No Preferred Language: Wolof Communication Ability: Effective Visual Impairment: Limited Hearing Ability: Normal [employer] Hand[employer] Required: No Beliefs That Will Affect Care: Advent marital status: Current Living Situation: Spouse Current Living Situation Comment: Lives with who has her own healthcare issues 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 Physical Exam Constitutional: WD/WN, vitals as above + ill appearing; no acute distress Eyes: + anicteric sclerae Neck: normal visual inspection Respiratory: Auscultation: lungs clear to auscultation bilaterally Cardiovascular: Rate/Rhythm: regular rate and regular rhythm Heart Sounds: normal S1 and normal S2 Extremities: + edema (chronic b/l lymphedema) Gastrointestinal (Abdomen): Inspection/Auscultation: abdomen normal to inspection Musculoskeletal: Extremities: extremities normal to inspection b/l LE with non pitting edema, wrapped, blisters, erythema Skin: + rash and + erythema hardening of skin, blisters, chronic venous stasis changes, erythema Neurologic: no focal motor deficits Psychiatric: Orientation: alert and oriented x 3 Affect: euthymic affect Results & Data ([facility]) Vital Signs (Past 12 Hours) Vital Signs Temp Pulse Pulse Resp BP Pulse Ox O2 Del Method 01/25/23 07:00 78 01/25/23 07:26 36.5 C 73 16 125/61 94 Room Air 01/25/23 03:01 36.4 C L 82 18 132/71 91 Room Air 01/24/23 23:00 36.4 C L 79 20 114/70 95 Room Air PG Care Time/CCT Total # of Minutes Spent Total Time Spent with Patient: Total time spent is greater than 50% in coordination of care (as documented) at patient's floor/unit and/or counseling patient: Coding Level of Care Code 69844 INT INP/OBS CARE MIN Diagnoses Acute kidney injury N17.9 Venous ulcer of left leg I83.029; L97.929 Anemia D64.9 Anemia type: unspecified type Leukocytosis D72.829 Leukocytosis type: unspecified Cellulitis L03.116 Laterality: left Site of cellulitis: extremity Site of cellulitis of extremity: lower extremity (3) Anemia Anemia type: unspecified type Qualified Code(s): D64.9 - Anemia, unspecified (4) Leukocytosis Leukocytosis type: unspecified Qualified Code(s): D72.829 - Elevated white blood cell count, unspecified (5) Cellulitis Laterality: left Site of cellulitis: extremity Site of cellulitis of extremity: lower extremity Qualified Code(s): L03.116 - Cellulitis of left lower limb
[2023-01-25] MEDS: allopurinoL 300 MG TAB PO SCH (12:16)
[2023-01-25] MEDS: DAPTOmycin 575 MG in SYRINGE 0 ML IV SCH (18:42)
--- NOTE | 2023-01-25 19:40 | Hospitalist Progress Note ---
Date of Service January 25, 2023 Assessment & Plan (1) Cellulitis: Plan: Lower extremity cellulitis, on a background of severe lymphedema -Admitted after failed outpatient management Lactate elevated, downtrending after fluids and antibiotics Procalcitonin 6.84 on admission -Wound gram stain positive for Klebsiella and Pseudomonas, parra sensitive - Continue zosyn/dapto. Tolerating well, childhood allergic of PCN - Wound care and ID consulted 01/24/2023-ID input noted Continue Zosyn in combination with daptomycin Follow identification cultures with sensitivity testing 01/25-patient will be continued on Zosyn combination of daptomycin pending culture sensitivity (2) Creatinine elevation: Plan: Baseline creatinine previously less than 1.35, had increased in December to 1.84 and remains elevated at 1.99 on admission could be Prerenal in the setting of infection versus developing chronic kidney injury Urine protein, albumin, sodium, osmolality pending Nephrology consulted Bumex held Spironolactone held (3) Cirrhosis: Plan: Mildly elevated liver enzymes will continue to follow (4) Lymphedema: Plan: Said he developed lymphedema following chemo and radio therapy for his cancer (5) Right heart failure: Plan: Carries a diagnosis of CHF Appears compensated Home Bumex on hold on account of pre renal ANNA Will monitor I/O daily weights (6) Leukocytosis: (7) Anemia: (8) Elevated liver enzymes: (9) Fever: Plan Continue hospitalization full code Heparin for DVT Admission and Anticipated Discharge Date Admission Date: January 22, 2023 Subjective Patient seen and examined Discrepancy between BC ID and blood culture noted No temp spikes But Blood cultures growing Gram negative Bacilli Physical Exam Physical Exam: Head and ENT no thyroid enlargement trachea midline Cardiovascular S1-S2 are normal no S3 Lungs bilateral air entry fair no wheezing Abdomen soft nondistended positive bowel sounds no rebound tenderness Extremity shows chronic lymphedema Neurologically no focal deficits Skin shows no rash no cyanosis Results & Data Results & Data ([facility]) Vital Signs (Past 12 Hours) Vital Signs Temp Pulse Resp BP Pulse Ox O2 Del Method 01/25/23 19:26 36.5 C 72 18 130/66 97 Room Air 01/25/23 15:17 36.6 C 74 16 111/62 97 Room Air 01/25/23 11:27 36.5 C 75 16 146/67 H 94 Room Air PG Care Time/CCT Total # of Minutes Spent Total Time Spent with Patient: Total time spent is greater than 50% in coordination of care (as documented) at patient's floor/unit and/or counseling patient: Coding Level of Care Code 00489 SUB INP/OBS CARE MIN Diagnoses Cellulitis L03.116 Laterality: left Site of cellulitis: extremity Site of cellulitis of extremity: lower extremity Creatinine elevation R79.89 Cirrhosis K74.60 Lymphedema I89.0 Right heart failure I50.810 Leukocytosis D72.829 Leukocytosis type: unspecified Anemia D64.9 Anemia type: unspecified type Elevated liver enzymes R74.8 Fever R50.9 Fever type: unspecified (1) Cellulitis Laterality: left Site of cellulitis: extremity Site of cellulitis of extremity: lower extremity Qualified Code(s): L03.116 - Cellulitis of left lower limb (6) Leukocytosis Leukocytosis type: unspecified Qualified Code(s): D72.829 - Elevated white blood cell count, unspecified (7) Anemia Anemia type: unspecified type Qualified Code(s): D64.9 - Anemia, unspecified (9) Fever Fever type: unspecified Qualified Code(s): R50.9 - Fever, unspecified
[2023-01-25] MEDS: LEVOTHYROXINE SODIUM 137 MCG TABLET PO SCH (21:07)
[2023-01-26] MEDS: HEPARIN SOD 5,000 UNIT/0.5 ML VIAL SQ SCH ×3 (05:42→21:20)
[2023-01-26 06:28] LABS: Hematocrit (blood only) 26.7 % (42.0-52.0); Hemoglobin 9.4 g/dl (14.0-18.0); Mean Corpuscular Hemoglobin 34.8 pg (25.0-34.0); Mean Corpuscular Hgb Conc 35.2 g/dL (32.0-36.0); Mean Corpuscular Volume 98.9 fL (80.0-100.0); Mean Platelet Volume 10.6 fL (9.4-12.4); Platelet Count 139 K/uL (130-400); RDW Coefficient of Variation 15.8 % (11.5-14.5); White Blood Count 8.94 K/ul (4.8-10.8)
[2023-01-26 06:49] LABS: Albumin Level 3.3 gm/dl (3.4-5.0); BUN Creatinine Ratio 28.7 (10-20); Est GFR (African American) 42.5 ml/min; Est GFR (Non-African American) 36.7 ml/min; Phosphorus 2.9 mg/dl (2.5-4.9); Potassium 3.8 mmol/L (3.5-5.1)
[2023-01-26] MEDS: MAGNESIUM OXIDE 400 MG TAB PO SCH ×2 (08:08→20:27)
[2023-01-26] MEDS: METOPROLOL SUCC 50MG EXT REL TAB PO SCH (08:08)
[2023-01-26] MEDS: PIPERACILLIN/TAZOBACTAM 3.375 GM in DEXTROSE 5% 100 ML IV SCH ×2 (08:08→17:23)
--- NOTE | 2023-01-26 10:29 | Nephrology Progress Note ---
Date of Service January 26, 2023 Assessment & Plan (1) Acute kidney injury: (2) Venous ulcer of left leg: (3) Anemia: (4) Leukocytosis: (5) Cellulitis: Plan 67-year-old gentlemen with h/o stage 3A CKD b/l Cr 1.2 to 1.5,admitted with left LE cellulitis, ANNA, Started empirically on daptomycin 6. Renal function started to worsen actually for last few weeks, last out patient lab showed creatinine 1.8 which progressively worsened down to 2.4 on labs this morning. Electrolyte acceptable. Diuretics has been on hold since admission but he reports decent urine output. Renal function started to improve, blood pressure fair, asymptomatic. Decent UO. -- continue to hold diuretics for now, although eventually he will need to be started on diuretics on discharge. -- encourage low-salt diet, elevate legs. -- renal panel in am Will follow. Admission and Anticipated Discharge Date Admission Date: January 22, 2023 Imelda Luciano was seen and examined in his room this morning. No overnight events, denies shortness of breath, fever or chills. Renal function slightly improved. Blood pressure acceptable. Decent UO off of diuretics. Review of Systems Review of Systems: Detail ROS was otherwise unremarkable. Physical Exam Constitutional: WD/WN, vitals as above no acute distress Eyes: + anicteric sclerae Respiratory: Auscultation: lungs clear to auscultation bilaterally Cardiovascular: Rate/Rhythm: regular rate and regular rhythm Heart Sounds: normal S1 and normal S2 Extremities: + edema (chronic b/l lymphedema) Skin: + rash and + erythema Neurologic: no focal motor deficits Psychiatric: Orientation: alert and oriented x 3 Affect: euthymic affect Results & Data ([facility]) Vital Signs (Past 12 Hours) Vital Signs Temp Pulse Pulse Resp BP BP Pulse Ox 01/26/23 08:20 37.1 C 70 18 118/74 129/71 96 01/26/23 07:00 73 01/26/23 03:34 36.6 C 76 16 122/62 96 01/25/23 23:00 36.8 C 74 20 148/69 H 94 O2 Del Method 01/26/23 08:20 Room Air 01/26/23 07:00 01/26/23 03:34 Room Air 01/25/23 23:00 Room Air PG Care Time/CCT Total # of Minutes Spent Total Time Spent with Patient: Total time spent is greater than 50% in coordination of care (as documented) at patient's floor/unit and/or counseling patient: Coding Level of Care Code 06553 SUB INP/OBS CARE 3/50MIN Diagnoses Acute kidney injury N17.9 Venous ulcer of left leg I83.029; L97.929 Anemia D64.9 Anemia type: unspecified type Leukocytosis D72.829 Leukocytosis type: unspecified Cellulitis L03.116 Laterality: left Site of cellulitis: extremity Site of cellulitis of extremity: lower extremity (3) Anemia Anemia type: unspecified type Qualified Code(s): D64.9 - Anemia, unspecified (4) Leukocytosis Leukocytosis type: unspecified Qualified Code(s): D72.829 - Elevated white blood cell count, unspecified (5) Cellulitis Laterality: left Site of cellulitis: extremity Site of cellulitis of extremity: lower extremity Qualified Code(s): L03.116 - Cellulitis of left lower limb
[2023-01-26] MEDS: allopurinoL 300 MG TAB PO SCH (12:21)
[2023-01-26] MEDS: DAPTOmycin 575 MG in SYRINGE 0 ML IV SCH (17:23)
--- NOTE | 2023-01-26 17:40 | Hospitalist Progress Note ---
Date of Service January 26, 2023 Assessment & Plan (1) Cellulitis: Plan: Lower extremity cellulitis, on a background of severe lymphedema -Admitted after failed outpatient management Lactate elevated, downtrending after fluids and antibiotics Procalcitonin 6.84 on admission -Wound gram stain positive for Klebsiella and Pseudomonas, parra sensitive - Continue zosyn/dapto. Tolerating well, childhood allergic of PCN - Wound care and ID consulted 01/24/2023-ID input noted Continue daptomycin Follow identification cultures with sensitivity testing 01/25-patient will be continued on daptomycin pending culture sensitivity based on ID recommendation 01/26- Patient being continued on daptomycin as per ID Serum creatinine 1.8 today White count 8.9 Diuretics being held Plan is to DC patient in 24 to 48 hours once final sensitivity are obtained Case management to assist with home care as per patient request (2) Creatinine elevation: Plan: Baseline creatinine previously less than 1.35, had increased in December to 1.84 and remains elevated at 1.99 on admission could be Prerenal in the setting of infection versus developing chronic kidney injury Urine protein, albumin, sodium, osmolality pending Nephrology consulted Bumex held Spironolactone held (3) Cirrhosis: Plan: Mildly elevated liver enzymes will continue to follow (4) Lymphedema: Plan: Said he developed lymphedema following chemo and radio therapy for his cancer (5) Right heart failure: Plan: Carries a diagnosis of CHF Appears compensated Home Bumex on hold on account of pre renal ANNA Will monitor I/O daily weights (6) Leukocytosis: (7) Anemia: (8) Elevated liver enzymes: (9) Fever: Plan Continue hospitalization full code Heparin for DVT Admission and Anticipated Discharge Date Admission Date: January 22, 2023 Subjective Patient seen and examined Denies any chest pain or shortness of breath Physical Exam Physical Exam: Head and ENT no thyroid enlargement trachea midline Cardiovascular S1-S2 are normal no S3 Lungs bilateral air entry fair no wheezing Abdomen soft nondistended positive bowel sounds no rebound tenderness Extremity shows lymphedema superimposed on lower extremity edema Neurologically no focal deficits Skin shows no rash no cyanosis Results & Data Results & Data ([facility]) Vital Signs (Past 12 Hours) Vital Signs Temp Pulse Pulse Resp BP BP Pulse Ox 01/26/23 15:38 36.8 C 95 H 16 125/66 96 01/26/23 12:34 37.0 C 83 16 121/74 03/05/23 08:20 37.1 C 70 18 118/74 129/71 96 01/26/23 07:00 73 O2 Del Method 01/26/23 15:38 Room Air 01/26/23 12:34 01/26/23 08:20 Room Air 01/26/23 07:00 Laboratory Results Short CBC 01/26/23 Range/Units 05:50 WBC 8.94 (4.8-10.8) K/ul Hgb 9.4 L (14.0-18.0) g/dl Hct 26.7 L (42.0-52.0) % Plt Count 139 (130-400) K/uL BMP 01/26/23 05:50 Sodium 128 L Potassium 3.8 Chloride 91 L Carbon Dioxide 34 H BUN 54 H Creatinine 1.88 H D Glucose 127 H Calcium 9.0 Liver Function 01/26/23 Range/Units 05:50 Albumin 3.3 L (3.4-5.0) gm/dl PG Care Time/CCT Total # of Minutes Spent Total Time Spent with Patient: Total time spent is greater than 50% in coordination of care (as documented) at patient's floor/unit and/or counseling patient: Coding Level of Care Code 05178 SUB INP/OBS CARE 2MIN Diagnoses Cellulitis L03.116 Laterality: left Site of cellulitis: extremity Site of cellulitis of extremity: lower extremity Creatinine elevation R79.89 Cirrhosis K74.60 Lymphedema I89.0 Right heart failure I50.810 Leukocytosis D72.829 Leukocytosis type: unspecified Anemia D64.9 Anemia type: unspecified type Elevated liver enzymes R74.8 Fever R50.9 Fever type: unspecified (1) Cellulitis Laterality: left Site of cellulitis: extremity Site of cellulitis of extremity: lower extremity Qualified Code(s): L03.116 - Cellulitis of left lower limb (6) Leukocytosis Leukocytosis type: unspecified Qualified Code(s): D72.829 - Elevated white blood cell count, unspecified (7) Anemia Anemia type: unspecified type Qualified Code(s): D64.9 - Anemia, unspecified (9) Fever Fever type: unspecified Qualified Code(s): R50.9 - Fever, unspecified
[2023-01-26] MEDS: LEVOTHYROXINE SODIUM 137 MCG TABLET PO SCH (20:27)
[2023-01-27] MEDS: PIPERACILLIN/TAZOBACTAM 3.375 GM in DEXTROSE 5% 100 ML IV SCH ×4 (00:19→23:24)
[2023-01-27] MEDS: HEPARIN SOD 5,000 UNIT/0.5 ML VIAL SQ SCH ×3 (05:33→21:15)
[2023-01-27 07:00] LABS: Hematocrit (blood only) 27.6 % (42.0-52.0); Hemoglobin 9.3 g/dl (14.0-18.0); Mean Corpuscular Hemoglobin 34.4 pg (25.0-34.0); Mean Corpuscular Hgb Conc 33.7 g/dL (32.0-36.0); Mean Corpuscular Volume 102.2 fL (80.0-100.0); Mean Platelet Volume 9.9 fL (9.4-12.4); Platelet Count 149 K/uL (130-400); RDW Coefficient of Variation 15.7 % (11.5-14.5); RDW Standard Deviation 58.2 fL (36.4-46.3)
[2023-01-27 07:16] LABS: Albumin Level 3.4 gm/dl (3.4-5.0); BUN Creatinine Ratio 26.7 (10-20); Creatinine Clr Calc Pharmacy 57.7 ml/min; Est GFR (Non-African American) 39.7 ml/min; Phosphorus 2.6 mg/dl (2.5-4.9); Potassium 4.1 mmol/L (3.5-5.1)
[2023-01-27] MEDS: MAGNESIUM OXIDE 400 MG TAB PO SCH ×2 (08:20→21:21)
[2023-01-27] MEDS: METOPROLOL SUCC 50MG EXT REL TAB PO SCH (08:23)
--- NOTE | 2023-01-27 08:57 | Infectious Disease Progress Nt ---
Date of Service January 27, 2023 Assessment & Plan (1) Cellulitis: Plan: #Achromobacter bacteremia, BCID negative #L leg cellulitis #Lymphedema, Venous insufficiency #L leg wound #CKD? #Leukocytosis 67-year-old male with a past medical history of Afib, CKD, venous insufficiency, CML, PAD, GERD who presented to [facility] on 01/22 with left lower swelling erythema. ID consulted for cellulitis. Patient has h/o lymphedema and is followed at wound clinic. Over 3 days [employer], he felt generally unwell. He was nauseated, had a fever not recorded and felt weak. The patient states that his left leg began giving him trouble when he had it wrapped by the wound center 2 days [employer]. Since the wrapping, he has noticed the increasing swelling, increasing pain. He thought maybe the wrap was too tight. In the ED, WBC 17, platelets 121. Creatinine 1.9 (cr in 2021 0.9, cr in 01/14 1.84) and elevated lactic acid. COVID, influenza and RSV test were negative. CXR vascular congestion. Left lower extremity ultrasound does not show findings of DVT. Patient received IV cefepime, IV Zosyn and then IV daptomycin. Patient has Penicillin allergy as a child. 01/22 Blood cultures 11/27 bottles are Achromobacter, BCID is negative Ac xyl/den RX M.I.C. --- --------- Cefepime I 16 Ceftazidime S 4 Ciprofloxacin I 2 Gentamicin R >8 Levofloxacin S 1 Meropenem S <=1 Tobramycin R >8 Trimeth/Sulfa S <= Pip/Tazo S <=16 01/24 Blood cultures NG 12/16 Left leg wound cx PSA (I Cefepime) and klebsiella pneumonaie, pansensitive 09/09/22 Lef leg wound Serratia marcescens pansensitive and Pseudomonas aeruginosa I Gentamicin Discussion: He is achromobacter, which i found in fresh water and soil. BCID is negative likely d/t achromobacter not being on one of organisms that it can identify. This can also be a contaminant. However given his h/o PSA in the wound, I would continue him on IV Zosyn to cover both. Anticipate he will need 2 weeks from first negative blood culture through 02/07. (2) Fever: (3) Leukocytosis: (4) Venous ulcers of both lower extremities: Plan -C/W Zosyn -DC Daptomycin as no MRSA growth -Anticipate he will need 2 weeks through 02/07 D/W primary team. ID will follow Angely Gonzales MD Infectious Diseases [facility] Admission and Anticipated Discharge Date Admission Date: January 22, 2023 Subjective This patient recommendation is based on a telemedicine consult request which was completed asynchronously through chart review and information provided by the primary physician. The patient was not seen or examined today. The evaluation is consultative in nature and all patient care and treatment decisions can either be accepted or rejected by the patient's primary hospital-based treating physician using their own independent medical judgment for their patient. Time Spent Reviewing Chart: 21 - 30 minutes MATEUSZ VSS WBC 9, Cr improved to 1.7 Results & Data ([facility]) Vital Signs (Past 12 Hours) Vital Signs Temp Pulse Pulse Resp BP BP Pulse Ox 01/27/23 07:45 76 01/27/23 07:45 01/27/23 07:15 36.5 C 74 18 120/57 L 97 01/27/23 00:00 76 01/27/23 03:31 36.8 C 77 18 137/62 93 01/26/23 23:49 36.5 C 75 16 129/63 96 O2 Del Method 01/27/23 07:45 01/27/23 07:45 Room Air 01/27/23 07:15 Room Air 01/27/23 00:00 01/27/23 03:31 Room Air 01/26/23 23:49 Room Air Laboratory Results Laboratory Results - last 48 hr 01/25/23 01/26/23 01/26/23 05:57 05:50 05:50 WBC 8.94 RBC 2.70 L Hgb 9.4 L Hct 26.7 L MCV 98.9 MCH 34.8 H MCHC 35.2 RDW Std Deviation 57.0 H RDW Coeff of Howie 15.8 H Plt Count 139 MPV 10.6 Sodium 127 L 128 L Potassium 3.9 3.8 Chloride 89 L 91 L Carbon Dioxide 32 34 H Anion Gap 6 3 BUN 59 H 54 H Creatinine 2.26 H 1.88 H D Est Cr Clr Drug Dosing 44.9 54.0 Est GFR ( Amer) 34.0 42.5 Est GFR (Non-Af Amer) 29.3 36.7 BUN/Creatinine Ratio 26.1 H 28.7 H Glucose 119 H 127 H Calcium 9.0 9.0 Phosphorus 2.9 Albumin 3.3 L 01/27/23 01/27/23 06:02 06:02 WBC 9.70 RBC 2.70 L Hgb 9.3 L Hct 27.6 L MCV 102.2 H MCH 34.4 H MCHC 33.7 RDW Std Deviation 58.2 H RDW Coeff of Howie 15.7 H Plt Count 149 MPV 9.9 Sodium 129 L Potassium 4.1 Chloride 92 L Carbon Dioxide 35 H Anion Gap 2 L BUN 47 H Creatinine 1.76 H Est Cr Clr Drug Dosing 57.7 Est GFR ( Amer) 46.0 Est GFR (Non-Af Amer) 39.7 BUN/Creatinine Ratio 26.7 H Glucose 115 H Calcium 9.0 Phosphorus 2.6 Albumin 3.4 Microbiology 01/24/23 15:21 Blood Aerobic Blood Culture - Preliminary No growth in Aerobic bottle after 48 hours. 01/24/23 15:21 Blood Anaerobic Blood Culture - Preliminary No growth in Anaerobic bottle after 48 hours. 01/24/23 15:15 Blood Aerobic Blood Culture - Preliminary No growth in Aerobic bottle after 48 hours. 01/24/23 15:15 Blood Anaerobic Blood Culture - Preliminary No growth in Anaerobic bottle after 48 hours. 01/22/23 15:20 Blood Aerobic Blood Culture - Preliminary Achromobacter xylosox/denitrif 01/22/23 15:20 Blood Anaerobic Blood Culture - Preliminary No growth in Anaerobic bottle after 48 hours. 01/22/23 15:02 Blood Aerobic Blood Culture - Preliminary No growth in Aerobic bottle after 48 hours. 01/22/23 15:02 Blood Anaerobic Blood Culture - Preliminary No growth in Anaerobic bottle after 48 hours. Medications Administered Current Inpatient Medications Allopurinol (Allopurinol 300 Mg Tab) 300 mg PO QDL [facility] Stop: 02/22/23 11:29 Last Admin: 01/26/23 12:21 Dose: 300 mg Heparin Sodium (Porcine) (Heparin Sod 5,000 Unit/0.5 Ml Vial) 7,500 units SQ Q8 [facility] Stop: 02/22/23 21:59 Last Admin: 01/27/23 05:33 Dose: Not Given Piperacillin Sod/Tazobactam (Sod 3.375 gm/ Dextrose) 115 mls @ 28.75 mls/hr IV Q8H [facility]; Protocol Stop: 01/30/23 00:00 Last Admin: 01/27/23 08:24 Dose: 28.8 mls/hr Levothyroxine Sodium (Levothyroxine Sodium 137 Mcg Tablet) 137 mcg PO QPM [facility] Stop: 02/21/23 21:16 Last Admin: 01/26/23 20:27 Dose: 137 mcg Magnesium Oxide (Magnesium Oxide 400 Mg Tab) 400 mg PO BID [facility] Stop: 02/23/23 13:56 Last Admin: 01/27/23 08:20 Dose: 400 mg Metoprolol Succinate (Metoprolol Succ 50mg Ext Rel Tab) 50 mg PO QAM [facility] Stop: 02/22/23 08:59 Last Admin: 01/27/23 08:23 Dose: 50 mg (1) Cellulitis Laterality: left Site of cellulitis: extremity Site of cellulitis of extremity: lower extremity Qualified Code(s): L03.116 - Cellulitis of left lower limb (2) Fever Fever type: unspecified Qualified Code(s): R50.9 - Fever, unspecified (3) Leukocytosis Leukocytosis type: unspecified Qualified Code(s): D72.829 - Elevated white blood cell count, unspecified
--- NOTE | 2023-01-27 10:52 | Nephrology Progress Note ---
Date of Service January 27, 2023 Assessment & Plan (1) Acute kidney injury: (2) Venous ulcer of left leg: (3) Anemia: (4) Leukocytosis: (5) Cellulitis: Plan 67-year-old gentlemen with h/o stage 3A CKD b/l Cr 1.2 to 1.5,admitted with left LE cellulitis, ANNA, started empirically on daptomycin 6. Renal function started to worsen actually for last few weeks, last out patient lab showed creatinine 1.8 which progressively worsened down to 2.4 on labs this morning. Electrolyte acceptable. Diuretics has been on hold since admission but he reports decent urine output. Renal function started to improve, blood pressure fair, asymptomatic. Decent UO. --resume Bumex at 1 mg bid and spironolactone starting back at 25 mg/d. Explained that he has high risk for worsening of renal function with diuretics but leg edema has been worsening and he will need diuretics on going. --encourage low-salt diet, elevate legs. --renal panel in am Will follow. Admission and Anticipated Discharge Date Admission Date: January 22, 2023 Imelda Luciano was seen and examined in his room this morning. No overnight events, denies shortness of breath, fever or chills. Renal function slightly improved. Blood pressure acceptable. Decent UO off of diuretics. Review of Systems Review of Systems: Detail ROS was otherwise unremarkable. Physical Exam Constitutional: WD/WN, vitals as above + ill appearing; no acute distress Eyes: + anicteric sclerae Neck: normal visual inspection Respiratory: Auscultation: lungs clear to auscultation bilaterally Cardiovascular: Rate/Rhythm: regular rate and regular rhythm Heart Sounds: normal S1 and normal S2 Extremities: + edema (chronic b/l lymphedema) Skin: + rash and + erythema Neurologic: no focal motor deficits Psychiatric: Orientation: alert and oriented x 3 Affect: euthymic affect Results & Data ([facility]) Vital Signs (Past 12 Hours) Vital Signs Temp Pulse Pulse Resp BP BP Pulse Ox 01/27/23 07:45 76 01/27/23 07:45 01/27/23 07:15 36.5 C 74 18 120/57 L 97 01/27/23 00:00 76 01/27/23 03:31 36.8 C 77 18 137/62 93 01/26/23 23:49 36.5 C 75 16 129/63 96 O2 Del Method 01/27/23 07:45 01/27/23 07:45 Room Air 01/27/23 07:15 Room Air 01/27/23 00:00 01/27/23 03:31 Room Air 01/26/23 23:49 Room Air PG Care Time/CCT Total # of Minutes Spent Total Time Spent with Patient: Total time spent is greater than 50% in coordination of care (as documented) at patient's floor/unit and/or counseling patient: Coding Level of Care Code 98178 SUB INP/OBS CARE 3/50MIN Diagnoses Acute kidney injury N17.9 Venous ulcer of left leg I83.029; L97.929 Anemia D64.9 Anemia type: unspecified type Leukocytosis D72.829 Leukocytosis type: unspecified Cellulitis L03.116 Laterality: left Site of cellulitis: extremity Site of cellulitis of extremity: lower extremity (3) Anemia Anemia type: unspecified type Qualified Code(s): D64.9 - Anemia, unspecified (4) Leukocytosis Leukocytosis type: unspecified Qualified Code(s): D72.829 - Elevated white blood cell count, unspecified (5) Cellulitis Laterality: left Site of cellulitis: extremity Site of cellulitis of extremity: lower extremity Qualified Code(s): L03.116 - Cellulitis of left lower limb
[2023-01-27] MEDS: allopurinoL 300 MG TAB PO SCH (12:38)
--- NOTE | 2023-01-27 16:46 | Hospitalist Progress Note ---
Date of Service January 27, 2023 Assessment & Plan (1) Cellulitis: Plan: Lower extremity cellulitis, on a background of severe lymphedema. Treated with Zosyn and daptomycin on admission and now on Zosyn through February 07. Appreciate infectious disease consultation and recommendations. He has given consent for midline placement for continued IV antibiotic therapy post discharge. (2) Creatinine elevation: Plan: Acute on chronic kidney disease, stage III. Nephrology consultation appreciated. Will resume diuretic at discharge. Monitor intake and output. Serial labs (3) Cirrhosis: Plan: Mildly elevated liver enzymes present on admission. Will follow (4) Lymphedema: Plan: developed lymphedema following chemo and radio therapy for his cancer (5) Right heart failure: Plan: Chronic. Diuretics are currently on hold. Monitor intake and output. Resume usual medications at discharge. (6) Leukocytosis: Plan: Due to underlying cellulitis, present on admission. Improving. Serial labs (7) Anemia: Plan: Present on admission. Mild. No transfusion needed. No evidence of melena or hematochezia. Serial labs (8) Elevated liver enzymes: Plan: Mild. Present on admission. No intervention needed at this time. Serial labs (9) Fever: Plan: Due to cellulitis left lower extremity. Now resolved Plan Anticipate discharge to home tomorrow, January 28, on IV antibiotics Admission and Anticipated Discharge Date Admission Date: January 22, 2023 Subjective Alert and oriented. No acute distress. He has given consent for midline IV placement for continued IV antibiotic therapy at discharge. He will require intravenous Zosyn through February 07. Daptomycin has been discontinued. Appreciate infectious disease consultation and recommendations. Blood cultures obtained January 24 remain negative. Review of Systems Review of Systems: Constitutional-no fever or chills ENT-no blurred vision, no double vision, no epistaxis, no sore throat Respiratory-no cough, no wheezing, no shortness of breath Cardiac-no palpitations, no chest pain, no syncope GI-no nausea, vomiting, diarrhea, melena, hematochezia -no urinary retention, no urinary incontinence, no dysuria, no hematuria Musculoskeletal-chronic venous stasis changes bilateral lower extremities , no joint pain, no muscle tenderness Skin-no bruising, no rashes, no pruritus Neuro-no isolated weakness, no paresthesia, no weakness Psych-no depression, no anxiety Physical Exam Physical Exam: General-alert and oriented x3, no fevers, no chills HEENT-head atraumatic and normocephalic, pupils equal and reactive to light, extraocular muscles intact Neck-no lymphadenopathy or thyromegaly, trachea midline Chest-clear to auscultation percussion. No rales wheezing or rhonchi Cardiac-regular rate and rhythm, normal S1 and S2 Abdomen-normal bowel sounds, nontender, no hepatosplenomegaly Extremities-chronic venous stasis changes with bilateral lower extremity edema below the knees. Cellulitic process involving the left lower extremity below the knee Neuro-cranial nerves II through XII intact, motor and sensory function within normal limits, strength symmetrical , no focal deficits Psych-normal affect, normal mood Results & Data Results & Data ([facility]) Vital Signs (Past 12 Hours) Vital Signs Temp Pulse Pulse Resp BP Pulse Ox O2 Del Method 01/27/23 11:03 36.6 C 70 18 118/57 L 97 Room Air 01/27/23 07:45 76 01/27/23 07:45 Room Air 01/27/23 07:15 36.5 C 74 18 120/57 L 97 Room Air Laboratory Results 01/27/23 06:02 01/27/23 06:02 PG Care Time/CCT Total # of Minutes Spent Total Time Spent with Patient: Total time spent is greater than 50% in coordination of care (as documented) at patient's floor/unit and/or counseling patient: Coding Level of Care Code 67796 SUB INP/OBS CARE 3/50MIN Diagnoses Cellulitis L03.116 Laterality: left Site of cellulitis: extremity Site of cellulitis of extremity: lower extremity Creatinine elevation R79.89 Cirrhosis K74.60 Lymphedema I89.0 Right heart failure I50.810 Leukocytosis D72.829 Leukocytosis type: unspecified Anemia D64.9 Anemia type: unspecified type Elevated liver enzymes R74.8 Fever R50.9 Fever type: unspecified (1) Cellulitis Laterality: left Site of cellulitis: extremity Site of cellulitis of extremity: lower extremity Qualified Code(s): L03.116 - Cellulitis of left lower limb (6) Leukocytosis Leukocytosis type: unspecified Qualified Code(s): D72.829 - Elevated white blood cell count, unspecified (7) Anemia Anemia type: unspecified type Qualified Code(s): D64.9 - Anemia, unspecified (9) Fever Fever type: unspecified Qualified Code(s): R50.9 - Fever, unspecified
[2023-01-27] MEDS: LEVOTHYROXINE SODIUM 137 MCG TABLET PO SCH (21:21)
[2023-01-28] MEDS: HEPARIN SOD 5,000 UNIT/0.5 ML VIAL SQ SCH (05:33)
[2023-01-28] MEDS: PIPERACILLIN/TAZOBACTAM 3.375 GM in DEXTROSE 5% 100 ML IV SCH (07:33)
[2023-01-28] MEDS: METOPROLOL SUCC 50MG EXT REL TAB PO SCH (08:44)
[2023-01-28] MEDS: MAGNESIUM OXIDE 400 MG TAB PO SCH (08:44)
[2023-01-28 09:31] LABS: Albumin Level 3.3 gm/dl (3.4-5.0)
[2023-01-28 09:36] LABS: BUN Creatinine Ratio 23.9 (10-20); Creatinine Clr Calc Pharmacy 53.8 ml/min; Est GFR (African American) 42.5 ml/min; Est GFR (Non-African American) 36.7 ml/min; Phosphorus 2.6 mg/dl (2.5-4.9)
--- NOTE | 2023-01-28 10:04 | Nephrology Progress Note ---
Date of Service January 28, 2023 Assessment & Plan (1) Acute kidney injury: (2) Venous ulcer of left leg: (3) Anemia: (4) Leukocytosis: (5) Cellulitis: Plan 67-year-old gentlemen with h/o stage 3A CKD b/l Cr 1.2 to 1.5,admitted with left LE cellulitis, ANNA, started empirically on daptomycin 6. Renal function started to worsen actually for last few weeks, last out patient lab showed creatinine 1.8 which progressively worsened down to 2.4 on labs this morning. Electrolyte acceptable. Diuretics has been on hold since admission but he reports decent urine output. Renal function Relatively stable, blood pressure fair, asymptomatic. Decent UO. --resume Bumex at 1 mg bid and spironolactone starting back at 25 mg/d at discharge, check renal function electrolyte 2 days after discharge and then next week. Explained that he has high risk for worsening of renal function with diuretics but leg edema has been worsening and he will need diuretics on going. --encourage low-salt diet, elevate legs. Will follow. Admission and Anticipated Discharge Date Admission Date: January 22, 2023 Imelda Luciano was seen and examined in his room this morning. No overnight events, denies shortness of breath, fever or chills. Renal function staying somewhat stable with slight variability in creatinine. Blood pressure acceptable. Decent UO off of diuretics. Had right upper arm midline placed yesterday for ongoing IV antibiotic. Review of Systems Review of Systems: Detail ROS was otherwise unremarkable. Physical Exam Constitutional: WD/WN, vitals as above no acute distress Eyes: + anicteric sclerae Neck: normal visual inspection Respiratory: Auscultation: lungs clear to auscultation bilaterally Cardiovascular: Rate/Rhythm: regular rate and regular rhythm Heart Sounds: normal S1 and normal S2 Extremities: + edema (chronic b/l lymphedema) Skin: + rash and + erythema Neurologic: no focal motor deficits Psychiatric: Orientation: alert and oriented x 3 Affect: euthymic affect Results & Data ([facility]) Vital Signs (Past 12 Hours) Vital Signs Temp Pulse Resp BP Pulse Ox O2 Del Method 01/28/23 08:00 36.8 C 72 19 109/78 96 Room Air 01/28/23 03:16 36.7 C 67 18 123/62 97 Room Air 03/06/23 23:03 36.6 C 71 18 118/57 L 95 Room Air PG Care Time/CCT Total # of Minutes Spent Total Time Spent with Patient: Total time spent is greater than 50% in coordination of care (as documented) at patient's floor/unit and/or counseling patient: Coding Level of Care Code 48666 SUB INP/OBS CARE 3/50MIN Diagnoses Acute kidney injury N17.9 Venous ulcer of left leg I83.029; L97.929 Anemia D64.9 Anemia type: unspecified type Leukocytosis D72.829 Leukocytosis type: unspecified Cellulitis L03.116 Laterality: left Site of cellulitis: extremity Site of cellulitis of extremity: lower extremity (3) Anemia Anemia type: unspecified type Qualified Code(s): D64.9 - Anemia, unspecified (4) Leukocytosis Leukocytosis type: unspecified Qualified Code(s): D72.829 - Elevated white blood cell count, unspecified (5) Cellulitis Laterality: left Site of cellulitis: extremity Site of cellulitis of extremity: lower extremity Qualified Code(s): L03.116 - Cellulitis of left lower limb
[2023-01-28] MEDS: allopurinoL 300 MG TAB PO SCH (11:34)
--- NOTE | 2023-01-28 11:45 | Discharge Summary ---
Date of Service January 28, 2023 Admission HPI Per Admitting Provider Rodríguez is a 67-year-old male with a past medical history of of A-fib s/p ablation, CKD, venous insufficiency, CML, PAD, GERD who presents with acute cellulitis. Legs with increased swelling, warmth and patient is with leukocytosis and feeling febrile MANAGER CHANGE. + Fever. +bilateral L>R leg swelling. Chronic lymphedema s/p lymph node excision and hx of chemo for CML in remission per pt. Legs wrapped Friday, since then L leg rapidly increasing asymmetric warmth, swelling, erythema, tenderness and purulent drainage. No ches tpain or chest pressure. Not sure if he can sleep laying flat, never tries. Leg does not show evidence of a clot on Doppler Peeing less than normal. No pain. Eating and drinking normally, no abdominal pain. Medical History: Reviewed Medications: Reviewed Surgical History: Reviewed Allergies: Reviewed. Penicillin as a kid, has gotten piperacillin since and tolerated Social History: No tobacco/etoh use Code Status: Full Code Principal Diagnosis Left lower extremity cellulitis, gram-negative bacteremia Discharge Exam General-alert and oriented x3, no fevers, no chills HEENT-head atraumatic and normocephalic, pupils equal and reactive to light, extraocular muscles intact Neck-no lymphadenopathy or thyromegaly, trachea midline Chest-clear to auscultation percussion. No rales wheezing or rhonchi Cardiac-regular rate and rhythm, normal S1 and S2 Abdomen-normal bowel sounds, nontender, no hepatosplenomegaly Extremities-chronic venous stasis changes with bilateral lower extremity edema below the knees. Cellulitic process involving the left lower extremity below the knee Neuro-cranial nerves II through XII intact, motor and sensory function within normal limits, strength symmetrical , no focal deficits Psych-normal affect, normal mood Discharge Data Allergies Allergy/AdvReac Type Severity Reaction Status Date / Time bee venom protein (honey bee) Allergy Severe DYSPNEA;SWE Verified 01/22/23 18:17 LLING latex Allergy Intermediate Rash Verified 01/22/23 18:17 Penicillins Allergy Unknown HAPPENED Verified 01/22/23 18:17 A CHILD Consultations 01/22/23 18:30 ED Decision to Admit Stat 01/23/23 11:57 Consult Infectious Diseases Routine 01/25/23 00:31 Consult Nephrology Routine Ordered Studies 01/22/23 16:33 US venous doppler LE Stat Hospital Course (1) Cellulitis: Lower extremity cellulitis, on a background of severe lymphedema. Treated with Zosyn and daptomycin on admission and now on Zosyn through February 07. Appreciate infectious disease consultation and recommendations. He now has a PICC line in the right arm. (2) Creatinine elevation: Acute on chronic kidney disease, stage III. Nephrology consultation appreciated. Will resume diuretics at discharge. Monitor intake and output. Serial labs (3) Cirrhosis: Mildly elevated liver enzymes present on admission. Will follow (4) Lymphedema: developed lymphedema following chemo and radio therapy for his cancer (5) Right heart failure: Chronic. Diuretics are currently on hold. Monitor intake and output. Resume usual medications at discharge. (6) Leukocytosis: Due to underlying cellulitis, present on admission. Improving. Serial labs (7) Anemia: Present on admission. Mild. No transfusion needed. No evidence of melena or hematochezia. Serial labs (8) Elevated liver enzymes: Mild. Present on admission. No intervention needed at this time. Serial labs (9) Fever: Due to cellulitis left lower extremity. Now resolved Plan discharge to home today, January 28, on IV antibiotics Total Time Total Time Spent Total Time Spent (In Minutes): 40 minutes Discharge Plan Discharge Items Patient Disposition: Home - Home Health Services Reason For Visit: LLE CELLULITIS Discharge Diagnosis: Left lower extremity cellulitis, gram-negative bacteremia Condition on Discharge: Good Activity: Resume your previous activity Non-emergency contact: Primary Care Provider Call non-emergency contact if: you have any medication questions Follow-up/Referrals: ProIsrael MD [Primary Care Provider] - Diet: Heart Healthy Addtl Attending Provider Instructions: Intravenous Zosyn through February 07. All other medications remain the same Pending Studies at Discharge: No Stand-Alone Forms: My [employer], Smoking Cessation Medications and DC Order Prescriptions: New magnesium oxide 400 mg (241.3 mg magnesium) Tablet 400 mg PO BID Qty: 60 0RF Zosyn in dextrose (iso-osm) 3.375 gram/50 mL piggyback 3.375 g IV Q8H Qty: 30 0RF Continued metoprolol succinate 100 mg tablet extended release 24 hr 50 mg PO QAM triamcinolone acetonide 0.1 % ointment 1 applic topical DAILY PRN (Reason: Skin Irritation) Qty: 80 1RF Rx Instructions: Apply topically to legs daily PRN magnesium 250 mg tablet 250 mg PO BID spironolactone 100 mg tablet 100 mg PO QAM Qty: 90 3RF tadalafil 20 mg tablet 20 mg PO DAILY PRN (Reason: Erectile Dysfunction) Rx Instructions: administer approximately 30min before sexual activity; do not use more than 1 dose per 24hrs epinephrine [EpiPen 2-Sb] 0.3 mg/0.3 mL auto-injector 0.3 mg IM Q10M PRN (Reason: anaphylaxis) Qty: 2 2RF bumetanide 2 mg tablet 2 mg PO BID allopurinol 300 mg tablet 300 mg PO QDL mesalamine 0.375 gram capsule,extended release 24hr 1.5 g PO QDL Rx Instructions: TAKES 4 CAPS. levothyroxine 137 mcg tablet 137 mcg PO QPM Rx Instructions: Takes 2 hrs after supper menthol-zinc oxide [Calmoseptine] 0.44-20.6 % ointment 1 applic EXT DIRECTED Discharge Orders: Discharge Order (Routine); Ordered 01/28/23 Ordered By: Jose Reyna Admission Data Admit Date/Time: 01/22/23 19:45 Attending Provider: Jose Reyna Admit Provider: Maxwell Campos Primary Care Provider: Israel Melton Other Providers: Maxwell Campos ; Cheri Kang ; Nikolay Fierro ; Clemencia Shaffer ; Tamika Correia ; Andria Hernandez ; Angely Gonzales ; Lianna Gallegos ; Sheri Reese ; Corine Pandya ; Hardeep Quintero ; Susan Giraldo Kevin C. ; Veronica Mccormick ; Kvng Sal[place]anca [facility] Coding Level of Care Code 17957 INP/OBS DISCH >30 MIN Diagnoses Cellulitis L03.116 Laterality: left Site of cellulitis: extremity Site of cellulitis of extremity: lower extremity Creatinine elevation R79.89 Cirrhosis K74.60 Lymphedema I89.0 Right heart failure I50.810 Leukocytosis D72.829 Leukocytosis type: unspecified Anemia D64.9 Anemia type: unspecified type Elevated liver enzymes R74.8 Fever R50.9 Fever type: unspecified
[2023-01-28 12:15] VITALS: BP 120/64; PULSE 72; TEMP 98.2; O2SAT 96
== END 2023-01-28 13:10 | disposition home health service (06) | DRG 872 ==
LOC: ED 14:00 → SUATTDRO 19:45 → EDINP 19:45 → 2S 21:17

== ENCOUNTER 2023-02-12 11:14 | Inpatient (IN) ==
--- NOTE | 2023-02-12 12:34 | XRay Report ---
XR chest 1V not portable CLINICAL HISTORY: Chest pain, nonspecific TECHNIQUE: Single frontal radiograph of the chest was obtained. Comparison: Comparison is made to chest radiograph 01/23/2020 FINDINGS: No lines and tubes are seen. Cardiomegaly is noted. Faint bibasilar airspace opacities are seen. Pulm onary vascular congestion is somewhat improved from prior exam. No evidence of pleural effusion or pn eumothorax. IMPRESSION: 1. Faint bibasilar airspace opacities which may represent atelectasis, pneumonia, and/or aspiration. 2. Cardiomegaly and mild pulmonary vascular congestion. ACT 112: Negative or not required by law. Electronically signed by: Hector Rosales M.D. 02/12/2023 12:32 PM
[2023-02-12 13:42] LABS: Basophils # (auto) 0.12 K/uL (0-0.2); Basophils % (auto) 1.3 %; Eosinophils # (auto) 0.55 K/uL (0-0.50); Hematocrit (blood only) 25.4 % (42.0-52.0); Hemoglobin 8.9 g/dl (14.0-18.0); Immature Granulocytes # (auto) 0.09 K/uL (0.01-0.20); Lymphocytes % (auto) 17.4 %; Mean Corpuscular Hemoglobin 35.2 pg (25.0-34.0); Mean Corpuscular Volume 100.4 fL (80.0-100.0); Mean Platelet Volume 10.9 fL (9.4-12.4); Monocytes # (auto) 0.64 K/uL (0.11-0.59); Neutrophils # (auto) 6.17 K/uL (1.40-6.50); Neutrophils % (auto) 67.3 %; Platelet Count 151 K/uL (130-400); RDW Coefficient of Variation 16.1 % (11.5-14.5); RDW Standard Deviation 59.6 fL (36.4-46.3); Red Blood Count 2.53 M/uL (4.70-6.10); White Blood Count 9.17 K/ul (4.8-10.8)
[2023-02-12 14:01] LABS: Alanine Aminotransferase 16 U/L (7-52); Albumin Globulin Ratio 0.9 (0.9-2); Albumin Level 3.6 gm/dl (3.4-5.0); Alkaline Phosphatase 75 U/L (34-104); Anion Gap 11 (3-11); Aspartate Aminotransferase 48 U/L (13-39); BUN Creatinine Ratio 17.6 (10-20); Bilirubin,Total 2.9 mg/dl (0.2-1.0); Blood Urea Nitrogen 54 mg/dl (6-23); Calcium 9.1 mg/dl (8.6-10.3); Carbon Dioxide 25 mmol/L (21-32); Chloride 93 mmol/L (98-107); Est GFR (African American) 23.5 ml/min; Est GFR (Non-African American) 20.3 ml/min; Glucose 147 mg/dl (70-99(Fasting)); Potassium 4.5 mmol/L (3.5-5.1); Sodium 129 mmol/L (136-145); Total Protein 7.6 gm/dl (6.0-8.3); Troponin I High Sensitivity 10.6 pg/ml (0-20)
--- NOTE | 2023-02-12 14:23 | Electrocardiogram Report ---
Test Reason : Blood Pressure : / mmHG Vent. Rate : 075 BPM Atrial Rate : 075 BPM P-R Int : 174 ms QRS Dur : 134 ms QT Int : 438 ms P-R-T Axes : 086 -59 100 degrees QTc Int : 489 ms Normal sinus rhythm Left anterior fascicular block Right bundle branch block Abnormal ECG Confirmed by Sarmad Painter ([id number]) on 02/12/2023 2:22:42 PM Referred By: REFERRED SELF Confirmed By:Salinas Painter
[2023-02-12 15:15] LABS: INR 1.4 (0.9-1.1); Partial Thromboplastin Ratio 1.1; Partial Thromboplastin Time 31.1 Seconds (21.0-31.0); Prothrombin Time 15.1 Seconds (9.0-12.0)
--- NOTE | 2023-02-12 15:31 | Emergency Department Note ---
Impression & Plan Bilateral edema of lower extremity, CKD (chronic kidney disease), Anasarca, Hyponatremia ED Provider Note ED Provider Note NAME: EMILY MUÑOZ AGE:67 SEX: Male : 1955 ARRIVES VIA: Private vehicle INFORMANT: Patient ED PROVIDER(s): Cheli Vasquez DO CHIEF COMPLAINT: Increased fluid retention HPI: This is a 67-year-old male presents emergency department due to concern for worsening fluid retention. Patient has a history of lower extremity edema and does take Bumex daily. Patient states he follows with nephrology. Patient is currently being treated for cellulitis of his left lower extremity secondary to his lymphedema. Patient states has been taking his Bumex as prescribed and did have an upcoming appointment with Dr. Cobb of nephrology this afternoon. He feels he is not urinating as much as he used to with his Bumex dose. He states he has not skipped or missed any doses. He states he feels that he is having increased edema to his abdomen as well. He states he has had increased difficul ty breathing with exertion. PAST MEDICAL HISTORY:See Below PAST SURGICAL HISTORY:See Below FAMILY HISTORY:See Below SOCIAL HISTORY:See Below HOME MEDICATIONS:See Below ALLERGIES:See Below VITALS:See Below PHYSICAL EXAMINATION: GENERAL: alert, well appearing, well nourished, no distress, non-toxic EYE EXAM: normal conjunctiva, PERRL and EOM's grossly intact OROPHARYNX: no exudate, no erythema, lips, buccal mucosa, and tongue normal and mucous membranes are moist NECK: supple, no nuchal rigidity, no adenopathy, non-tender LUNGS: Clear to auscultation. Normal chest wall mechanics, no w/r/r, no tachypnea or increased respiratory distress HEART: no murmurs, S1 normal and S2 normal ABDOMEN: abdomen soft, non-tender, normo-active bowel sounds, no masses, no rebound or guarding. Mild pitting noted on lower abdominal wall. BACK: Back is symmetrical on inspection and there is no deformity, no midline tenderness, no CVA tenderness. SKIN: no rashes, petechiae, orbruising UPPER EXTREMITIES: upper extremities are grossly normal. FROM, nml pulses b/l. LOWER EXTREMITIES: 3+ b/l LE edema with some chronic appearing edema additionally. Lower extremities wrapped, left with an occlusive dressing placed by wound care due to recent cellulitis, FROM, nml pulses b/l. NEURO EXAM: Normal sensorium, cranial nerves II-XII grossly intact, normal speech, no facial droop,nogross weakness of arms, no gross weakness of legs. Gross sensation intact. No ataxia. Vital Signs: reviewed and remarkable Differential Diagnosis: ANNA, nephrotic syndrome, electrolyte abnormality, cellulitis, worsening lymphedema, noncompliance, medication ADR, CHF, as well as others were considered MEDICAL DECISION MAKING: This is a 67-year-old male presents emergency department due to concern for increased fluid retention. Patient does follow with nephrology and has had ongoing issues with lower extremity edema as well as recently worsening kidney function. Patient midst to increased lower extremity edema, abdominal wall edema, increased shortness of breath with exertion, and was due to see his kraft digester operator later today. Patient was afebrile and vital signs stable. Labs drawn and sent, IV established, EKG performed interpreted by me, chest x-ray performed interpreted by me, patient monitored on telemetry. I did call and discussed the case with the patient's kraft digester operator given the medication adjustments that were made as an outpatient and his continued complaints. She recommended admission for inpatient diuresis and monitoring as over the last 6 weeks his creatinine had significantly worsened, he was becoming more hyponatremic, and she felt this best done as an inpatient. Given patient's worsening symptoms despite outpatient Bumex, I feel this is reasonable discussed the case with the on-call hospitalist. Consultation(s): 1528: Discussed with Dr. Cobb. ER Treatment Provided: See below Diagnostics Interpreted By Me: -ECG: Normal sinus rhythm at 75, leftward axis, right bundle branch block, nonspecific ST/T wave changes -Cardiac Monitoring: An order was placed for continuous cardiac monitoring. The monitor shows a rate of 78 with normal sinus rhythm. -Laboratory studies: As stated above and show below. -Imaging studies: X-ray Chest: A single view study of the chest was reviewed and was negative for cardiomegaly, focal infiltrate, effusion, or wide mediastinum. Increased interstitial markings bilaterally. Triage Nursing Note Reviewed Prior/Outside Records Reviewed - prior nephrology note reviewed as well as prior outpatient labs Past Med/Surg History Medical History Acute kidney injury Anemia Atrial flutter 10/02/2020: Ablation of typical right atrial isthmus dependent flutter. 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 Ulcerative colitis Venous ulcer of left leg Venous ulcers of both lower extremities Vitamin D deficiency Surgical History H/O hernia repair (12/04/12) H/O laparoscopy H/O left knee surgery H/O lymph node excision 36 total H/O right hemicolectomy 36 lymph nodes removed as well History of appendectomy History of colonoscopy History of esophagogastroduodenoscopy (EGD) History of removal of Port-a-Cath History of tooth extraction Status post ablation of atrial flutter (12/04/12) 2020 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) Family History Grandmother (Paternal) Colorectal cancer Father Myocardial infarction Prostate cancer Denies family history of Ovarian cancer Dementia Breast cancer Social History Smoking Status: Never smoker Second Hand Exposure: No; Hx Alcohol Use: Yes Alcohol type: beer Hx Substance Use: No Preferred Language: [place] Communication Ability: Effective Visual Impairment: Limited Hearing Ability: Normal Flotation Operator Required: No Beliefs That Will Affect Care: Druze marital status: Current Living Situation: Spouse Current Living Situation Comment: Lives with who has her own healthcare issues 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 How many Children do You have: 2 Other Information That Helps Us Care for You: No Feels Safe at Home: Yes Safety Concerns: Feels Safe At This Time Childhood Exposure to Second-Hand Smoke: No Diet Comment: 2000 cc fluid restriction during the past year weight has: increased > 10 lbs Dental Care, Regularly: Yes Physical Activity Frequency: Daily Seatbelt Use: always Sunscreen Use: Yes Assistive Devices: Cane Allergies Allergies Allergy/AdvReac Type Severity Reaction Status Date / Time bee venom protein (honey bee) Allergy Severe DYSPNEA;SWE Verified 02/06/23 13:15 LLING latex Allergy Intermediate Rash Verified 02/06/23 13:15 Penicillins Allergy Unknown HAPPENED Verified 02/06/23 13:15 A CHILD Home Meds Home Medications Medication Instructions Recorded Confirmed tadalafil 20 mg tablet 20 mg PO DAILY PRN Erectile 08/06/21 02/12/23 Dysfunction metoprolol succinate 100 mg 50 mg PO QAM 04/24/22 02/12/23 tablet,extended release 24 hr levothyroxine 137 mcg tablet 137 mcg PO QPM 09/02/22 02/12/23 menthol 0.44 %-zinc oxide 20.6 % 1 applic EXT DIRECTED 09/17/22 02/12/23 topical ointment (Calmoseptine) allopurinol 300 mg tablet 300 mg PO QDL 01/07/23 02/12/23 mesalamine 0.375 gram 1.5 g PO QDL 01/07/23 02/12/23 capsule,extended release 24 hr bumetanide 2 mg tablet 2 mg PO DAILY 02/06/23 02/12/23 Previous Rx's Medication Instructions Recorded epinephrine 0.3 mg/0.3 mL 0.3 mg (0.3 mL) IM Q10M PRN 08/06/21 injection, auto-injector (EpiPen anaphylaxis #2 ea 2-Sb) triamcinolone acetonide 0.1 % 1 applic topical DAILY PRN Skin 02/08/22 topical ointment Irritation #80 grams spironolactone 100 mg tablet 100 mg PO QAM #90 tabs 10/31/22 magnesium oxide 400 mg (241.3 mg 400 mg PO BID #60 tabs 01/28/23 magnesium) tablet Results & Data (ED) Vital Signs Vital Signs - 24 hr 02/12/23 11:38 02/12/23 13:09 02/12/23 13:12 Temperature 36.9 C Temperature Source Temporal Artery Scan Pulse Rate 75 78 Pulse Rate [Right Finger] 76 Pulse Rhythm [Right Finger] Regular Pulse Strength [Right Finger] Normal Respiratory Rate 18 18 Respiratory Effort / Characteristics Non-Labored Respiratory Depth Normal Respiratory Pattern Regular Blood Pressure 132/69 Blood Pressure [Right Arm] 128/60 Blood Pressure Mean 90 Blood Pressure Mean [Right Arm] 82 Blood Pressure Position [Right Arm] Lying Pulse Oximetry 98 96 Oxygen Delivery Method Room Air Room Air Sepsis Recent Fever Within 48 Hours No Sepsis New/Unexplained Change in Mental Status No Sepsis Action Taken by Nursing No Action Required 02/12/23 15:18 Temperature Temperature Source Pulse Rate Pulse Rate [Right Finger] 76 Pulse Rhythm [Right Finger] Regular Pulse Strength [Right Finger] Respiratory Rate 18 Respiratory Effort / Characteristics Non-Labored Spontaneous Respiratory Depth Normal Respiratory Pattern Regular Blood Pressure Blood Pressure [Right Arm] 122/52 L Blood Pressure Mean Blood Pressure Mean [Right Arm] 75 Blood Pressure Position [Right Arm] Sitting Pulse Oximetry 97 Oxygen Delivery Method Room Air Sepsis Recent Fever Within 48 Hours Sepsis New/Unexplained Change in Mental Status Sepsis Action Taken by Nursing Laboratory Data 02/12/23 13:08 02/12/23 13:08 Lab Results 02/12/23 02/12/23 02/12/23 Range/Units 13:08 13:08 13:08 WBC 9.17 (4.8-10.8) K/ul RBC 2.53 L (4.70-6.10) M/uL Hgb 8.9 L (14.0-18.0) g/dl Hct 25.4 L (42.0-52.0) % MCV 100.4 H (80.0-100.0) fL MCH 35.2 H (25.0-34.0) pg MCHC 35.0 (32.0-36.0) g/dL RDW Std Deviation 59.6 H (36.4-46.3) fL RDW Coeff of Howie 16.1 H (11.5-14.5) % Plt Count 151 (130-400) K/uL MPV 10.9 (9.4-12.4) fL Immature Gran % (Auto) 1.0 % Neut % (Auto) 67.3 % Lymph % (Auto) 17.4 % Heard % (Auto) 7.0 % Eos % (Auto) 6.0 % Baso % (Auto) 1.3 % Neut # (Auto) 6.17 (1.40-6.50) K/uL Lymph # (Auto) 1.60 (1.2-3.4) K/uL Heard # (Auto) 0.64 H (0.11-0.59) K/uL Eos # (Auto) 0.55 H (0-0.50) K/uL Baso # (Auto) 0.12 (0-0.2) K/uL Immature Gran # (Auto) 0.09 (0.01-0.20) K/uL PT Cancelled INR Cancelled APTT Cancelled PTT Ratio Cancelled Sodium 129 L (136-145) mmol/L Potassium 4.5 (3.5-5.1) mmol/L Chloride 93 L (98-107) mmol/L Carbon Dioxide 25 (21-32) mmol/L Anion Gap 11 (3-11) BUN 54 H (6-23) mg/dl Creatinine 3.07 H (0.6-1.4) mg/dl Est Cr Clr Drug Dosing Not Reportable Est GFR ( Amer) 23.5 ml/min Est GFR (Non-Af Amer) 20.3 ml/min BUN/Creatinine Ratio 17.6 (10-20) Glucose 147 H (70-99(Fasting)) mg/dl Osmolality (280-300) mOsm/kg Calcium 9.1 (8.6-10.3) mg/dl Total Bilirubin 2.9 H (0.2-1.0) mg/dl AST 48 H (13-39) U/L ALT 16 (7-52) U/L Alkaline Phosphatase 75 (34-104) U/L Troponin I High Sens 10.6 (0-20) pg/ml B-Natriuretic Peptide (0-100) pg/ml Total Protein 7.6 (6.0-8.3) gm/dl Albumin 3.6 (3.4-5.0) gm/dl Globulin 4.0 (2.5-4.0) gm/dl Albumin/Globulin Ratio 0.9 (0.9-2) SARS-CoV-2, RNA, NAAT (NEGATIVE) 02/12/23 02/12/23 02/12/23 Range/Units 14:10 14:11 14:11 WBC (4.8-10.8) K/ul RBC (4.70-6.10) M/uL Hgb (14.0-18.0) g/dl Hct (42.0-52.0) % MCV (80.0-100.0) fL MCH (25.0-34.0) pg MCHC (32.0-36.0) g/dL RDW Std Deviation (36.4-46.3) fL RDW Coeff of Howie (11.5-14.5) % Plt Count (130-400) K/uL MPV (9.4-12.4) fL Immature Gran % (Auto) % Neut % (Auto) % Lymph % (Auto) % Heard % (Auto) % Eos % (Auto) % Baso % (Auto) % Neut # (Auto) (1.40-6.50) K/uL Lymph # (Auto) (1.2-3.4) K/uL Heard # (Auto) (0.11-0.59) K/uL Eos # (Auto) (0-0.50) K/uL Baso # (Auto) (0-0.2) K/uL Immature Gran # (Auto) (0.01-0.20) K/uL PT 15.1 H INR 1.4 H APTT 31.1 H PTT Ratio 1.1 Sodium (136-145) mmol/L Potassium (3.5-5.1) mmol/L Chloride (98-107) mmol/L Carbon Dioxide (21-32) mmol/L Anion Gap (3-11) BUN (6-23) mg/dl Creatinine (0.6-1.4) mg/dl Est Cr Clr Drug Dosing Est GFR ( Amer) ml/min Est GFR (Non-Af Amer) ml/min BUN/Creatinine Ratio (10-20) Glucose (70-99(Fasting)) mg/dl Osmolality 305 H (280-300) mOsm/kg Calcium (8.6-10.3) mg/dl Total Bilirubin (0.2-1.0) mg/dl AST (13-39) U/L ALT (7-52) U/L Alkaline Phosphatase (34-104) U/L Troponin I High Sens (0-20) pg/ml B-Natriuretic Peptide 709 H (0-100) pg/ml Total Protein (6.0-8.3) gm/dl Albumin (3.4-5.0) gm/dl Globulin (2.5-4.0) gm/dl Albumin/Globulin Ratio (0.9-2) SARS-CoV-2, RNA, NAAT (NEGATIVE) 02/12/23 Range/Units 15:39 WBC (4.8-10.8) K/ul RBC (4.70-6.10) M/uL Hgb (14.0-18.0) g/dl Hct (42.0-52.0) % MCV (80.0-100.0) fL MCH (25.0-34.0) pg MCHC (32.0-36.0) g/dL RDW Std Deviation (36.4-46.3) fL RDW Coeff of Howie (11.5-14.5) % Plt Count (130-400) K/uL MPV (9.4-12.4) fL Immature Gran % (Auto) % Neut % (Auto) % Lymph % (Auto) % Heard % (Auto) % Eos % (Auto) % Baso % (Auto) % Neut # (Auto) (1.40-6.50) K/uL Lymph # (Auto) (1.2-3.4) K/uL Heard # (Auto) (0.11-0.59) K/uL Eos # (Auto) (0-0.50) K/uL Baso # (Auto) (0-0.2) K/uL Immature Gran # (Auto) (0.01-0.20) K/uL PT INR APTT PTT Ratio Sodium (136-145) mmol/L Potassium (3.5-5.1) mmol/L Chloride (98-107) mmol/L Carbon Dioxide (21-32) mmol/L Anion Gap (3-11) BUN (6-23) mg/dl Creatinine (0.6-1.4) mg/dl Est Cr Clr Drug Dosing Est GFR ( Amer) ml/min Est GFR (Non-Af Amer) ml/min BUN/Creatinine Ratio (10-20) Glucose (70-99(Fasting)) mg/dl Osmolality (280-300) mOsm/kg Calcium (8.6-10.3) mg/dl Total Bilirubin (0.2-1.0) mg/dl AST (13-39) U/L ALT (7-52) U/L Alkaline Phosphatase (34-104) U/L Troponin I High Sens (0-20) pg/ml B-Natriuretic Peptide (0-100) pg/ml Total Protein (6.0-8.3) gm/dl Albumin (3.4-5.0) gm/dl Globulin (2.5-4.0) gm/dl Albumin/Globulin Ratio (0.9-2) SARS-CoV-2, RNA, NAAT NEGATIVE (NEGATIVE) Administered Medications Allopurinol (Allopurinol 300 Mg Tab) 300 mg PO QDL KALLI Stop: 03/15/23 11:29 Last Admin: 02/13/23 12:45 Dose: 300 mg Documented By: GLORIA Famotidine (Famotidine 20 Mg Tab) 20 mg PO DAILY KALLI Stop: 03/14/23 18:59 Last Admin: 02/13/23 08:19 Dose: 20 mg Documented By: Admin: 02/12/23 20:32 Dose: 20 mg Documented By: TRENT Folic Acid (Folic Acid 1 Mg Tab) 1 mg PO QAM KALLI Stop: 03/15/23 08:59 Last Admin: 02/13/23 10:13 Dose: 1 mg Documented By: GLORIA Heparin Sodium (Porcine) (Heparin Sod 5,000 Unit/0.5 Ml Vial) 7,500 units SQ Q8 KALLI Stop: 03/14/23 21:59 Last Admin: 02/13/23 14:33 Dose: 7,500 units Documented By: Admin: 02/13/23 05:38 Dose: 7,500 units Documented By: Admin: 02/12/23 20:33 Dose: 7,500 units Documented By: TRENT Bumetanide 4 mg/ Syringe 16 mls @ 4 mls/min IV BID KALLI Stop: 03/14/23 20:59 Last Admin: 02/13/23 08:59 Dose: 4 mls/min Documented By: JOHNATHAN Co-signed By: AC Admin: 02/12/23 22:10 Dose: 4 mls/min Documented By: TRENT Iron Sucrose 300 mg/ Sodium (Chloride) 265 mls @ 176.667 mls/hr IV DAILY KALLI Stop: 02/16/23 10:29 Last Infusion: 02/13/23 15:51 Dose: 0 mls/hr Documented By: Admin: 02/13/23 13:46 Dose: 176.7 mls/hr Documented By: GLORIA Levothyroxine Sodium (Levothyroxine Sodium 137 Mcg Tablet) 137 mcg PO QPM [facility] Stop: 03/14/23 20:59 Last Admin: 02/12/23 20:33 Dose: 137 mcg Documented By: TRENT Magnesium Oxide (Magnesium Oxide 400 Mg Tab) 400 mg PO BID [facility] Stop: 03/14/23 20:59 Last Admin: 02/13/23 08:19 Dose: 400 mg Documented By: Admin: 02/12/23 20:33 Dose: 400 mg Documented By: TRENT Metoprolol Succinate (Metoprolol Succ 50mg Ext Rel Tab) [facility] [place] Stop: 03/15/23 08:59 Last Admin: 02/13/23 08:19 Dose: 50 mg Documented By: GLORIA Miscellaneous ((Mesalamine 0.375 Gram Capsule,Extended Release 24hr)-Order Awaiting Action) 1 each N/A QS [facility] Stop: 03/14/23 19:29 Last Admin: 02/13/23 15:10 Dose: Not Given Documented By: Admin: 02/13/23 08:17 Dose: Not Given Documented By: Admin: 02/13/23 00:31 Dose: Not Given Documented By: Admin: 02/12/23 20:33 Dose: Not Given Documented By: TRENT Spironolactone (Spironolactone 100 Mg Tab) [facility] [place] Stop: 03/15/23 08:59 Last Admin: 02/13/23 08:18 Dose: 100 mg Documented By: GLORIA Vitamin D (Cholecalciferol 1,000 Units 25 Mcg Tab) 3,000 [facility] [place] Stop: 03/15/23 08:59 Last Admin: 02/13/23 10:16 Dose: 3,000 units Documented By: GLORIA Discontinued Medications Bumetanide 2 mg/ Syringe 8 mls @ 4 mls/min IV ONE ONE Stop: 02/12/23 15:35 Last Admin: 02/12/23 15:57 Dose: 4 mls/min Documented By: EWELINA Spironolactone (Spironolactone 100 Mg Tab) 100 mg PO NOW STA Stop: 02/12/23 17:02 Last Admin: 02/12/23 17:16 Dose: 100 mg Documented By: EWELINA Imaging Data Radiologist's Impression: Chest X-Ray 02/12/23 11:42 XR chest 1V not portable CLINICAL HISTORY: Chest pain, nonspecific TECHNIQUE: Single frontal radiograph of the chest was obtained. Comparison: Comparison is made to chest radiograph 01/23/2020 FINDINGS: No lines and tubes are seen. Cardiomegaly is noted. Faint bibasilar airspace opacities are seen. Pulmonary vascular congestion is somewhat improved from prior exam. No evidence of pleural effusion or pneumothorax. IMPRESSION: 1. Faint bibasilar airspace opacities which may represent atelectasis, pneumonia, and/or aspiration. 2. Cardiomegaly and mild pulmonary vascular congestion. ACT 112: Negative or not required by law. Electronically signed by: Hector Rosales M.D. 02/12/2023 12:32 PM Discharge Plan Visit Data Chief Complaint: Illness Stated Complaint: FLUID RETENTION IN BELLY, TO LUNGS ED Provider: Cheli Vasquez Discharge Problem: Bilateral edema of lower extremity, CKD (chronic kidney disease), Anasarca, Hyponatremia Patient Disposition: Admitted As Inpatient Discharge Instructions Interventions: ED Discharge Assessment Last Done: 02/12/23 17:44
[2023-02-12] MEDS ORDERED: BUMETANIDE 2 MG in SYRINGE 0 ML IV ONE (15:34)
--- NOTE | 2023-02-12 16:20 | History & Physical Report ---
Date of Service February 12, 2023 Assessment & Plan (1) Volume overload: Plan: -Admit to med/surge -The patient is currently afebrile, hemodynamically stable, and stable on RA -Has had significant volume overload/swelling/weight gain since discharge on 01/28 -Likely due to his Diuretics being held last admission and being discharged on daily bumex instead of his typical BID dosing. Cannot rule out kidney disease and liver disease adding to the issue at this time -Patient has had very little daily urine output on daily Bumex dosing, was recommended for admission by Dr. Giraldo of Nephrology as she has been following outpatient -BNP today is 709, this is the highest his BNP has ever been -S/P 2mg IV bumex in the ED, will continue with 4 mg IV BID for now and his 100 mg PO daily spironolactone for now -Will place soto cath, monitor I's & O's q6h, monitor daily weights -Monitor daily electrolytes with IV diuresis -Nephrology consulted will monitor for their recs -Continue with DONOVAN stockings and Sub-Q heparin for DVT PPX, patient refused Sub- Q heparin due to developing black stools last admission, monitor for melena while on heparin -AM CBC, CMP, PT/INR (2) Acute kidney injury superimposed on CKD: Plan: -Cr today is 3.07, baseline is approximately 1.5-1.6 per the last Nephrology note on 01/28 -Likely due to volume overload, could be a component of Cardiorenal and/or hepatorenal syndromes -Continue to monitor renal function with IV diuresis -Nephrology will follow (3) Cirrhosis: Plan: -Has a knwon history -total bili today is 2.9, down from 6.7 as of 01/22, INR at 1.4 (down from 1.7 as of 01/22/23) -AST today is 48, ALT and alk phos WNL -Will obtain US of the liver with ascites check for further eval -If any concerning findings would consult GI -Continue Spironolactone -Monitor daily liver function (4) Hyponatremia: Plan: -Sodium noted to be 129 today with a glucose of 147 -Has been slowly trending down since last discharge -Likely due to his volume overload with decreased diuretic dose and poor urine output -Will obtain serum osmolality, urine osmolality, and urine sodium -Follow daily renal function/lytes, follow Nephrology recs -1500 mL fluid restriction (5) S/P ablation of atrial fibrillation: Plan: -Stable -No currently on anticoagulation -Continue metoprolol (6) CML (chronic myelocytic leukemia): Plan: -[facility], they are currently monitoring (7) Hypothyroidism: Plan: -Continue levothyroxine (8) Hypertension: Plan: -Stable -Continue metoprolol and Diuresis (9) GERD (gastroesophageal reflux disease): Plan: -Daily famotidine while admitted Plan The patient was discussed with Dr. 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 In the ED the patient was found to be afebrile, hemodynamically stable, and stable on RA. Labs were remarkable for a CBC with WBC WNL, stable Hgb and platelets, MCV of 100.4, INR of 1.4, Cr of 3.07 (baseline per the last nephro note on 01/28 is 1.2-1.5), glucose of glucose of 147 with sodium of 129 (down from 130 as of 02/10), chloride of 93, BUN of 54, total bili of 2.9, AST of 48, ALT and alk phos WNL, high sen trop of 10.6, BNP of 709 (up from 572 as of 04/01/22). Chest xray was read "1. Faint bibasilar airspace opacities which may represent atelectasis, pneumonia, and/or aspiration. 2. Cardiomegaly and mild pulmonary vascular congestion.". The ED spoke with his Ore Crusher (Dr. Giraldo) who has been trying to treat him outpatient. She recommended admission for Diuresis and instructed the ED staff to give the patient 2 mg IV Bumex. At the time of exam the patient was sitting in the bedside recliner in no acute distress. He states that since his last discharge he has continued to gain weight, have increased swelling, and increased SOB. He states that he has been taking 2mg PO Bumex daily and his 100 mg daily but his symptoms have continued to progress. He has had very little daily urine output on the once daily bumex. He denies recent fevers or chills and states that his RLE cellulitis has resolved, he completed his outpatient course of Zosyn. He has been using DONOVAN stockings on the BL 's, he feels as though all of his swelling has moved into his abdomen. He denies recent chest pain, cough, abd pain, nausea, vomiting, dysuria, hematuria, melena, diarrhea, and recent trauma. I asked why he refused the Sub-Q heparin during his last admission, he states that it was because he developed black stool. We discussed starting a Soto catheter for close monitoring of his I's & O's, he is in agreement with placement. He has not seen a pad tufter or custom tailor since being seen inpatient during his admission last March. We discussed code status, he wishes to be a Full Code and for his to make medical decisions for him if he could not make them himself. Per chart review, the patient was recently admitted from 01/22-01/28 for RLE cellulitis and ANNA on CKD. Infectious disease was consulted during his admission and recommended continuing Zosyn, which he completed this past week at the [facility]. His ANNA was thought to be caused from dehydration and increased diuretic dosing. He had been taking 2 mg PO Bumex BID and 100 mg PO Spironolactone daily prior to that admission. On admission his diuretics were held. He was restarted on 2 gm PO Bumex Daily and 100 mg PO Spironolactone daily. Please refer to Dr. Rodriguez's attestation for any changes to the treatment plan Allergies Allergy/AdvReac Type Severity Reaction Status Date / Time bee venom protein (honey bee) Allergy Severe DYSPNEA;SWE Verified 02/06/23 13:15 LLING latex Allergy Intermediate Rash Verified 02/06/23 13:15 Penicillins Allergy Unknown HAPPENED Verified 02/06/23 13:15 A CHILD Home Medications Medication Instructions Recorded Confirmed Type epinephrine 0.3 mg/0.3 mL 0.3 mg (0.3 mL) IM Q10M PRN 08/06/21 02/12/23 Rx injection, auto-injector (EpiPen anaphylaxis #2 ea 2-Sb) tadalafil 20 mg tablet 20 mg PO DAILY PRN Erectile 08/06/21 02/12/23 History Dysfunction triamcinolone acetonide 0.1 % 1 applic topical DAILY PRN Skin 02/08/22 02/12/23 Rx topical ointment Irritation #80 grams metoprolol succinate 100 mg 50 mg PO QAM 04/24/22 02/12/23 History tablet,extended release 24 hr levothyroxine 137 mcg tablet 137 mcg PO QPM 09/02/22 02/12/23 History menthol 0.44 %-zinc oxide 20.6 % 1 applic EXT DIRECTED 09/17/22 02/12/23 History topical ointment (Calmoseptine) spironolactone 100 mg tablet 100 mg PO QAM #90 tabs 10/31/22 02/12/23 Rx allopurinol 300 mg tablet 300 mg PO QDL 01/07/23 02/12/23 History mesalamine 0.375 gram 1.5 g PO QDL 01/07/23 02/12/23 History capsule,extended release 24 hr magnesium oxide 400 mg (241.3 mg 400 mg PO BID #60 tabs 01/28/23 02/12/23 Rx magnesium) tablet bumetanide 2 mg tablet 2 mg PO DAILY 02/06/23 02/12/23 History Past Med/Surg History Medical History (Updated 02/13/23 @ 08:52 by Cynthia Butler PA-C) Acute kidney injury Anemia Atrial flutter 10/02/2020: Ablation of typical right atrial isthmus dependent flutter. [facility] of appendix sx to treat Chronic kidney disease, stage 3a follows with Dr. Giraldo Cirrhosis CML (chronic myelocytic leukemia) no chemo at present COVID-19 GERD (gastroesophageal reflux disease) Hemangioma History of COVID-12 Dec 2021 > not hospitalized Hypertension Hypokalemia Hypothyroidism Low platelet count Lymphedema Murmur Paroxysmal A-fib resolved with ablation Pulmonary embolism Aug 2022 > was treated with Eliquis and now finished Right heart failure SVT (supraventricular tachycardia) 01/21/2012: Ablation of typical slow fast AVNRT [facility] Trifascicular block follows with Dr. Painter Ulcerative colitis Venous ulcer of left leg Venous ulcers of both lower extremities Vitamin D deficiency Surgical History H/O hernia repair (12/04/12) H/O laparoscopy H/O left knee surgery H/O lymph node excision 36 total H/O right hemicolectomy 36 lymph nodes removed as well History of appendectomy History of colonoscopy History of esophagogastroduodenoscopy (EGD) History of removal of Port-a-Cath History of tooth extraction Status post ablation of atrial flutter (12/04/12) 2020 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) Family History Grandmother (Paternal) Colorectal cancer Father Myocardial infarction Prostate cancer Denies family history of Ovarian cancer Dementia Breast cancer Social History Smoking Status: Never smoker Second Hand Exposure: No; Hx Alcohol Use: Yes Alcohol type: beer Hx Substance Use: No Preferred Language: Zambian Communication Ability: Effective Visual Impairment: Limited Hearing Ability: Normal Drawing Checker Required: No Beliefs That Will Affect Care: Faith marital status: Current Living Situation: Spouse Current Living Situation Comment: Lives with who has her own healthcare issues 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 How many Children do You have: 2 Other Information That Helps Us Care for You: No Feels Safe at Home: Yes Safety Concerns: Feels Safe At This Time Childhood Exposure to Second-Hand Smoke: No Diet Comment: 2000 cc fluid restriction during the past year weight has: increased > 10 lbs Dental Care, Regularly: Yes Physical Activity Frequency: Daily Seatbelt Use: always Sunscreen Use: Yes Assistive Devices: None Review of Systems Review of Systems: Denies current fever, chills, headache, changes in vision, hearing, taste, and smell, chest pain, cough, abdominal pain, nausea, vomiting, diarrhea, hematemesis, melena, dysuria, hematuria, and recent falls. All systems have been reviewed and are otherwise negative. Physical Exam Physical Exam: Physical Exam: General: In no acute distress, stated age, morbidly obese, chronically ill- appearing HEENT: Normocephalic, atraumatic, no scleral icterus, pupils around round, symmetrical, and reactive to light, moist mucus membranes, trachea midline, no thyromegaly Chest/Pulm: No respiratory distress, symmetrical chest expansion, decreased breath sounds in the lower lung andres Cardiac: RRR, no murmurs noted Abdomen: Large and distended abdomen, normoactive bowel sounds, firm but non- tender to palpation throughout Musculoskeletal: Symmetrical and without signs of acute trauma, upper and lower extremities with full ROM, no atrophy, spasticity, or flaccidity Extremities: Radial, dorsalis pedis, and posterior tibial pulses are intact and symmetrical, Severe lymphedema in the LE's Skin: Warm, dry, signs of chronic venous insufficiency in the LE's, no signs of acute infection at this time Neuro: Alert and oriented to person, place, month, year, and president, no focal defects, no tremors noted Psych: No acute distress, calm and cooperative during the exam Results & Data Results & Data Vital Signs (Past 12 Hours) Vital Signs Temp Pulse Pulse Resp BP BP Pulse Ox 02/12/23 15:18 76 18 122/52 L 97 02/12/23 13:12 76 18 128/60 96 02/12/23 13:09 78 02/12/23 11:38 36.9 C 75 18 132/69 98 O2 Del Method 02/12/23 15:18 Room Air 02/12/23 13:12 Room Air 02/12/23 13:09 02/12/23 11:38 Room Air Laboratory Results Abnormal lab results 02/12/23 02/12/23 02/12/23 Range/Units 13:08 13:08 14:10 RBC 2.53 L (4.70-6.10) M/uL Hgb 8.9 L (14.0-18.0) g/dl Hct 25.4 L (42.0-52.0) % MCV 100.4 H (80.0-100.0) fL MCH 35.2 H (25.0-34.0) pg RDW Std Deviation 59.6 H (36.4-46.3) fL RDW Coeff of Howie 16.1 H (11.5-14.5) % [place] # (Auto) 0.64 H (0.11-0.59) K/uL Eos # (Auto) 0.55 H (0-0.50) K/uL PT 15.1 H (9.0-12.0) Seconds INR 1.4 H (0.9-1.1) APTT 31.1 H (21.0-31.0) Seconds Sodium 129 L (136-145) mmol/L Chloride 93 L (98-107) mmol/L BUN 54 H (6-23) mg/dl Creatinine 3.07 H (0.6-1.4) mg/dl Glucose 147 H (70-99(Fasting)) mg/dl Total Bilirubin 2.9 H (0.2-1.0) mg/dl AST 48 H (13-39) U/L B-Natriuretic Peptide (0-100) pg/ml 02/12/23 Range/Units 14:11 RBC (4.70-6.10) M/uL Hgb (14.0-18.0) g/dl Hct (42.0-52.0) % MCV (80.0-100.0) fL MCH (25.0-34.0) pg RDW Std Deviation (36.4-46.3) fL RDW Coeff of Howie (11.5-14.5) % [place] # (Auto) (0.11-0.59) K/uL Eos # (Auto) (0-0.50) K/uL PT (9.0-12.0) Seconds INR (0.9-1.1) APTT (21.0-31.0) Seconds Sodium (136-145) mmol/L Chloride (98-107) mmol/L BUN (6-23) mg/dl Creatinine (0.6-1.4) mg/dl Glucose (70-99(Fasting)) mg/dl Total Bilirubin (0.2-1.0) mg/dl AST (13-39) U/L B-Natriuretic Peptide 709 H (0-100) pg/ml Diagnostic Findings Chest X-Ray 02/12/23 11:42 XR chest 1V not portable CLINICAL HISTORY: Chest pain, nonspecific TECHNIQUE: Single frontal radiograph of the chest was obtained. Comparison: Comparison is made to chest radiograph 01/23/2020 FINDINGS: No lines and tubes are seen. Cardiomegaly is noted. Faint bibasilar airspace opacities are seen. Pulmonary vascular congestion is somewhat improved from prior exam. No evidence of pleural effusion or pneumothorax. IMPRESSION: 1. Faint bibasilar airspace opacities which may represent atelectasis, pneumonia, and/or aspiration. 2. Cardiomegaly and mild pulmonary vascular congestion. ACT 112: Negative or not required by law. Electronically signed by: Hector Rosales M.D. 02/12/2023 12:32 PM ECG Additional Comments: Normal sinus rhythm Left anterior fascicular block Right bundle branch block Abnormal ECG Confirmed by Sarmad Painter ([id number]) on 02/12/2023 2:22:42 PM Code Status & VTE Plan Code Status Full code VTE Prophylaxis Plan VTE Prophylaxis will be ordered: Yes Supervising Physician Co-Signing Physician Notes I personally saw and examined the patient. I verified all raza points and agree with Bijan Borges PA-C with the following exceptions and/or additions: 67 year old male presents with worsening leg edema, abdominal distension and renal failure. Diuretics held last admission due to concern for intravascular depletion and discharged taking a lower dose than his usual 2mg PO BID. Significant weight gain since. O/E A&Ox3, HS 1+2, holosystolic murmur loudest in apex, Chest - no crackles or wheezing, absent breath sounds at bases. Abdo SNT, distended with 1+ wall edema. Left leg wrapped in Cob[place] - not removed. right leg dressing removed with weeping skin and venous dermatitis changes but no overt cellulitis A/P Hypervolemia - suspect some of his leg edema is lymphedema however significant fluid overload on his abdomen in addition. no significant microalbuminuria recently suggesting diagnosis is more related to right sided CHF +/- liver failure. Agree with US liver and ascites to determine if he would benefit from paracentesis. INR elevated suspect secondary to liver cirrhosis. Repeat echo warranted given > 1 year since previous and murmur on exam. Previously on Bumex 2mg PO BID before recent admission therefore will start with 4mg IV BID as his ANNA likely to make smaller doses less effective. Continue his usual spironolactone 100mg PO daily. ANNA - suspect poor effective forward flow contributing towards this and hepatorenal syndrome which should improve with diuresis. B/l lower extremity venous ulcers - wound care nurse consult. Difficult to rule out infection but WBC improved, no fever or chills and will repeat procalcitonin. PG Care Time/CCT Total # of Minutes Spent Total Time Spent with Patient: Total time spent is greater than 50% in coordination of care (as documented) at patient's floor/unit and/or counseling patient: [place] [address] INT INP/OBS CARE 3/75MIN Patient Type Established Medical Decision Making High Complexity Diagnoses Volume overload E87.70 Acute kidney injury superimposed on CKD N17.9; N18.9 Cirrhosis K74.60 Hyponatremia E87.1 S/P ablation of atrial fibrillation Z98.890; Z86.79 CML (chronic myelocytic leukemia) C92.10 Hypothyroidism E03.9 Hypertension I10 GERD (gastroesophageal reflux disease) K21.9
[2023-02-12] MEDS ORDERED: SPIRONOLACTONE 100 MG TAB PO STA (17:01)
[2023-02-12] MEDS: FAMOTIDINE 20 MG TAB PO SCH (20:32)
[2023-02-12] MEDS: LEVOTHYROXINE SODIUM 137 MCG TABLET PO SCH (20:33)
[2023-02-12] MEDS: MAGNESIUM OXIDE 400 MG TAB PO SCH (20:33)
[2023-02-12] MEDS: HEPARIN SOD 5,000 UNIT/0.5 ML VIAL SQ SCH (20:33)
[2023-02-12 21:19] LABS: Appearance Urine Clear (Clear); Bacteria Urine Automated Negative (Negative); Bilirubin Urine Negative (Negative); Blood Urine Negative (Negative); Color Urine Yellow; Epithelial Cell Urine Auto 20-30 /lpf (0-5); Glucose Urine UA Negative (Negative); Ketones Urine Negative (Negative); Leukocyte Esterase Urine Trace (Negative); Nitrite Urine Negative (Negative); Protein Urine Negative (Negative); RBC Urine Automated 0-4 /hpf (0-4); Urobilinogen Urine Negative (Negative)
[2023-02-12] MEDS: BUMETANIDE 4 MG in SYRINGE 0 ML IV SCH (22:10)
--- NOTE | 2023-02-12 22:54 | Ultrasound Report ---
Exam(s): US LIVER EXAM: US Abdomen Limited CLINICAL HISTORY: Reason for exam: volume overload, hx of cirrhosis. TECHNIQUE: Real-time ultrasound of the abdomen with image documentation. COMPARISON: CT abdomen and pelvis 04/04/2022. FINDINGS: Liver: Hepatomegaly. Cirrhotic morphology of the liver. Liver measures up to the 18.9 cm. Gallbladder: Gallbladder is contracted. Common bile duct measures 4 mm. Pancreas: Pancreas is obscured by bowel gas. Kidneys: Right kidney measures up to 11.9 cm in long axis. Free fluid: Ascites is present. IMPRESSION: Cirrhotic morphology of the liver with ascites. Consider evaluation with MRI as clinically warranted. Electronically signed by: Demetrius Merida MD 02/12/23 22:53 PM
--- NOTE | 2023-02-12 22:55 | Ultrasound Report ---
Exam(s): US ABDOMEN LIMITED EXAM: US Abdomen Limited CLINICAL HISTORY: Reason for exam: renal and liver dysfunction, distended abd. TECHNIQUE: Real-time ultrasound of the abdomen with image documentation. COMPARISON: CT abdomen pelvis 04/04/2022. FINDINGS: Free fluid: Small amount of ascites which appears most significant in the left lower quadrant. IMPRESSION: Small amount of ascites which appears most significant in the left lower quadrant. Electronically signed by: Demetrius Merida MD 02/12/23 22:54 PM
[2023-02-13] MEDS: HEPARIN SOD 5,000 UNIT/0.5 ML VIAL SQ SCH ×3 (05:38→21:04)
[2023-02-13 07:57] LABS: Hematocrit (blood only) 24.9 % (42.0-52.0); Hemoglobin 8.4 g/dl (14.0-18.0); Mean Corpuscular Hemoglobin 34.4 pg (25.0-34.0); Mean Corpuscular Hgb Conc 33.7 g/dL (32.0-36.0); Mean Platelet Volume 10.3 fL (9.4-12.4); Platelet Count 129 K/uL (130-400); RDW Standard Deviation 59.7 fL (36.4-46.3); Red Blood Count 2.44 M/uL (4.70-6.10); White Blood Count 9.86 K/ul (4.8-10.8)
[2023-02-13 08:15] LABS: Albumin Globulin Ratio 0.9 (0.9-2); Albumin Level 3.4 gm/dl (3.4-5.0); BUN Creatinine Ratio 19.9 (10-20); Bilirubin,Total 3.8 mg/dl (0.2-1.0); Calcium 9.2 mg/dl (8.6-10.3); Creatinine Clr Calc Pharmacy 35.3 ml/min; Est GFR (African American) 25.1 ml/min; Est GFR (Non-African American) 21.6 ml/min; Magnesium 2.3 mg/dl (1.7-2.4); Potassium 4.2 mmol/L (3.5-5.1); Total Protein 7.4 gm/dl (6.0-8.3)
[2023-02-13 08:18] LABS: INR 1.5 (0.9-1.1); Prothrombin Time 15.9 Seconds (9.0-12.0)
[2023-02-13] MEDS: SPIRONOLACTONE 100 MG TAB PO SCH (08:18)
[2023-02-13] MEDS: METOPROLOL SUCC 50MG EXT REL TAB PO SCH (08:19)
[2023-02-13] MEDS: MAGNESIUM OXIDE 400 MG TAB PO SCH ×2 (08:19→20:17)
[2023-02-13] MEDS: FAMOTIDINE 20 MG TAB PO SCH (08:19)
--- NOTE | 2023-02-13 08:44 | Hospitalist Progress Note ---
Date of Service February 13, 2023 Assessment & Plan (1) Volume overload: Plan: Has had significant volume overload/swelling/weight gain since discharge on 01/28, BNP elevated to 709 (highest it has ever been) Likely due to only taking bumex once daily but had been taking his spironolactone 100mg daily Patient has had very little daily urine output on daily Bumex dosing, was recommended for admission by Dr. Giraldo of Nephrology as she has been following outpatient S/P 2mg IV bumex in the ED, will continue with 4 mg IV BID for now and his 100 mg PO daily spironolactone for now Nephrology consulted Checking Renal UA for ANNA for further eval. UA neg for blood/protein. Microscopy neg for casts Iron studies w/ iron 27%, ferriting 129 --> Venofer ordered by nephrology for his anemia Continue bumex 4mg IV BID, spironolactone 100mg daily. 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 see about low Na meals on wheels given discussion w/ patient and caring for his since last summer w/ back infection and eating out/prepared meals and he does endorse he has not really being taking care of himself (2) Acute kidney injury superimposed on CKD: Plan: Cr 3.07 on admit, 2nd to volume overload/anemia/vit d def/etc ?cardio vs hepatorenal Iron panel checked -- venofer ordered by nephrology repleting folate, vit D given prior deficiency Nephrology consulted Renal US ordered for further eval Avoid nephrotoxins/renal dose meds as possible Cr 2.91 and will monitor BMP (3) Anemia: Plan: chronic, hx CML following w/ CCP Checking iron panel. Prior B12 in Dec wnl 660. Folate was low at 4.24 and does not appear patient on supplementation -- repeat and starting 1mg daily and would continue at d/c Venofer as above, fecal occult ordered for completeness although denied blood in stool Monitor CBC (4) Cirrhosis: Plan: Has a knwon history , denies ETOH Total bili 2.9, down from 6.7 as of 01/22, INR at 1.4 (down from 1.7 as of 01/22/23) on admit Tb 3.8, AST 40 Liver US w/ small amt ascites --> not having abdominal pain Continue increased dose bumex, ?switching to torsemide Continue spironolactone Low Na diet encouraged -- see above regarding issues w/ meals at home Consider GI consultation if needed but appears can be deferred and set up outpatient Monitor LFts (5) Hyponatremia: Plan: Sodium noted to be 129 with a glucose of 147 on admission Na 130 on Am labs, continue diuresis Urine osm 295 (prior 345), urine Na 70 Fluid restriction Nephrology consulted Monitor BMP (6) S/P ablation of atrial fibrillation: Plan: Stable No currently on anticoagulation -- EKG on admit NSR, L anterior fascicular block, RBBB Continue metoprolol keep K/mag replete (7) CML (chronic myelocytic leukemia): Plan: Follows [facility], they are currently monitoring (8) Hypothyroidism: Plan: Continue levothyroxine TSH slight elevation 4.554, but Ft4 wnl 1.18 -- could consider increasing Synthroid to 150mcg daily vs repeat labs in f/u with PCP/adjustment (9) Hypertension: Plan: Stable 144/71 Continue metoprolol and Diuresis (10) GERD (gastroesophageal reflux disease): Plan: Daily famotidine while admitted no sx reported currently (11) Vitamin D deficiency: Plan: replacement ordered (12) Folate deficiency: Plan: prior low dec 2022, repeat ordered and replacement Lymphedema -- Wound RN consulted -- Seen w/ wound RN -- amlactin ordered NON TENDER/NO LEUKOCYTOSIS or fever Monitor for any infection, just completed course Zosyn for LE cellulitis Admission and Anticipated Discharge Date Admission Date: February 12, 2023 Supervising Physician Co-Signing Physician Notes The patient was not seen by me. The chart was reviewed. Case discussed with SHERRON Clark. Agree with assessment and plan Subjective eval this morning, doing alright. discussed weight gain/diuretics. lengthy discussion about his prior med history/infection to spine/abscess/trach and frequent trips to [place]/eating out/process meals all contributing. He was a little tearful and states he knows he wasn't taking care of himself but that he had been focus on his who came home before September. Denies CP/SOB, not very active. He notes prior hx low blood counts on eliquis/bleeding, hesitant for heparin SQ but getting and checking fecal occult. He does state has been on folate but forgot to tell anyone, used to be on vitamin D. Discussed increased diuretics and compliance, possible switch to torsemide. Physical Exam Physical Exam: General: WD obese male sitting up in bed, NAD, chronically ill appearing HEENT head normocephalic, atraumatic, pupils equal/reactive to light, mmm, trachea midline Resp: CTA, diminished in bases but without w/c/r, 98% on RA CV: RRR, +systolic murmur, , +LE edema/lymphedema, nontender GI: +BS, distended, nontender MSK/Neuro: no focal deficits Psych: AOx3, cooperative with care Skin: b/l LE lymphedema, some serous drainage, cracking of skin but no obvious open/draining lesions, thickened skin c/w lymphedema Results & Data Results & Data Vital Signs (Past 12 Hours) Vital Signs Temp Pulse Resp BP Pulse Ox O2 Del Method 02/13/23 08:07 36.6 C 81 16 147/63 H 94 Room Air 02/12/23 21:33 36.8 C 84 18 143/64 H 94 Room Air Laboratory Results 02/13/23 02/13/23 02/13/23 Range/Units 07:11 07:11 07:11 WBC 9.86 (4.8-10.8) K/ul RBC 2.44 L (4.70-6.10) M/uL Hgb 8.4 L (14.0-18.0) g/dl Hct 24.9 L (42.0-52.0) % MCV 102.0 H (80.0-100.0) fL MCH 34.4 H (25.0-34.0) pg MCHC 33.7 (32.0-36.0) g/dL RDW Std Deviation 59.7 H (36.4-46.3) fL RDW Coeff of Howie 16.0 H (11.5-14.5) % Plt Count 129 L (130-400) K/uL MPV 10.3 (9.4-12.4) fL Immature Gran % (Auto) % Neut % (Auto) % Lymph % (Auto) % [place] % (Auto) % Eos % (Auto) % Baso % (Auto) % Neut # (Auto) (1.40-6.50) K/uL Lymph # (Auto) (1.2-3.4) K/uL [place] # (Auto) (0.11-0.59) K/uL Eos # (Auto) (0-0.50) K/uL Baso # (Auto) (0-0.2) K/uL Immature Gran # (Auto) (0.01-0.20) K/uL PT 15.9 H INR 1.5 H APTT PTT Ratio Sodium 130 L (136-145) mmol/L Potassium 4.2 (3.5-5.1) mmol/L Chloride 94 L (98-107) mmol/L Carbon Dioxide 28 (21-32) mmol/L Anion Gap 8 (3-11) BUN 58 H (6-23) mg/dl Creatinine 2.91 H (0.6-1.4) mg/dl Est Cr Clr Drug Dosing 35.3 Est GFR ( Amer) 25.1 ml/min Est GFR (Non-Af Amer) 21.6 ml/min BUN/Creatinine Ratio 19.9 (10-20) Glucose 109 H (70-99(Fasting)) mg/dl Osmolality (280-300) mOsm/kg Calcium 9.2 (8.6-10.3) mg/dl Magnesium 2.3 (1.7-2.4) mg/dl Total Bilirubin 3.8 H (0.2-1.0) mg/dl AST 40 H (13-39) U/L ALT 16 (7-52) U/L Alkaline Phosphatase 73 (34-104) U/L Troponin I High Sens (0-20) pg/ml B-Natriuretic Peptide (0-100) pg/ml Total Protein 7.4 (6.0-8.3) gm/dl Albumin 3.4 (3.4-5.0) gm/dl Globulin 4.0 (2.5-4.0) gm/dl Albumin/Globulin Ratio 0.9 (0.9-2) Urine Color Urine Appearance (Clear) Urine pH (4.5-7.5) Ur Specific [place] (1.000-1.030) Urine Protein (Negative) Urine Glucose (UA) (Negative) Urine Ketones (Negative) Urine Blood (Negative) Urine Nitrite (Negative) Urine Bilirubin (Negative) Urine Urobilinogen (Negative) Ur Leukocyte Esterase (Negative) Urine WBC (Auto) (0-5) /hpf Urine RBC (Auto) (0-4) /hpf U Hyaline Cast (Auto) (0-5) /lpf U Epithel Cells (Auto) (0-5) /lpf Urine Bacteria (Auto) (Negative) Urine Osmolality (500-800) mOsm/kg Ur Random Sodium mmol/L SARS-CoV-2, RNA, NAAT (NEGATIVE) 02/12/23 02/12/23 02/12/23 Range/Units 20:53 20:53 20:53 WBC (4.8-10.8) K/ul RBC (4.70-6.10) M/uL Hgb (14.0-18.0) g/dl Hct (42.0-52.0) % MCV (80.0-100.0) fL MCH (25.0-34.0) pg MCHC (32.0-36.0) g/dL RDW Std Deviation (36.4-46.3) fL RDW Coeff of Howie (11.5-14.5) % Plt Count (130-400) K/uL MPV (9.4-12.4) fL Immature Gran % (Auto) % Neut % (Auto) % Lymph % (Auto) % [place] % (Auto) % Eos % (Auto) % Baso % (Auto) % Neut # (Auto) (1.40-6.50) K/uL Lymph # (Auto) (1.2-3.4) K/uL [place] # (Auto) (0.11-0.59) K/uL Eos # (Auto) (0-0.50) K/uL Baso # (Auto) (0-0.2) K/uL Immature Gran # (Auto) (0.01-0.20) K/uL PT INR APTT PTT Ratio Sodium (136-145) mmol/L Potassium (3.5-5.1) mmol/L Chloride (98-107) mmol/L Carbon Dioxide (21-32) mmol/L Anion Gap (3-11) BUN (6-23) mg/dl Creatinine (0.6-1.4) mg/dl Est Cr Clr Drug Dosing Est GFR ( Amer) ml/min Est GFR (Non-Af Amer) ml/min BUN/Creatinine Ratio (10-20) Glucose (70-99(Fasting)) mg/dl Osmolality (280-300) mOsm/kg Calcium (8.6-10.3) mg/dl Magnesium (1.7-2.4) mg/dl Total Bilirubin (0.2-1.0) mg/dl AST (13-39) U/L ALT (7-52) U/L Alkaline Phosphatase (34-104) U/L Troponin I High Sens (0-20) pg/ml B-Natriuretic Peptide (0-100) pg/ml Total Protein (6.0-8.3) gm/dl Albumin (3.4-5.0) gm/dl Globulin (2.5-4.0) gm/dl Albumin/Globulin Ratio (0.9-2) Urine Color Yellow Urine Appearance Clear (Clear) Urine pH 5.0 (4.5-7.5) Ur Specific [place] 1.010 (1.000-1.030) Urine Protein Negative (Negative) Urine Glucose (UA) Negative (Negative) Urine Ketones Negative (Negative) Urine Blood Negative (Negative) Urine Nitrite Negative (Negative) Urine Bilirubin Negative (Negative) Urine Urobilinogen Negative (Negative) Ur Leukocyte Esterase Trace H (Negative) Urine WBC (Auto) 1-5 (0-5) /hpf Urine RBC (Auto) 0-4 (0-4) /hpf U Hyaline Cast (Auto) 10-30 H (0-5) /lpf U Epithel Cells (Auto) 20-30 H (0-5) /lpf Urine Bacteria (Auto) Negative (Negative) Urine Osmolality 295 L (500-800) mOsm/kg Ur Random Sodium 70 mmol/L SARS-CoV-2, RNA, NAAT (NEGATIVE) 02/12/23 02/12/23 02/12/23 Range/Units 15:39 14:11 14:11 WBC (4.8-10.8) K/ul RBC (4.70-6.10) M/uL Hgb (14.0-18.0) g/dl Hct (42.0-52.0) % MCV (80.0-100.0) fL MCH (25.0-34.0) pg MCHC (32.0-36.0) g/dL RDW Std Deviation (36.4-46.3) fL RDW Coeff of Howie (11.5-14.5) % Plt Count (130-400) K/uL MPV (9.4-12.4) fL Immature Gran % (Auto) % Neut % (Auto) % Lymph % (Auto) % [place] % (Auto) % Eos % (Auto) % Baso % (Auto) % Neut # (Auto) (1.40-6.50) K/uL Lymph # (Auto) (1.2-3.4) K/uL [place] # (Auto) (0.11-0.59) K/uL Eos # (Auto) (0-0.50) K/uL Baso # (Auto) (0-0.2) K/uL Immature Gran # (Auto) (0.01-0.20) K/uL PT INR APTT PTT Ratio Sodium (136-145) mmol/L Potassium (3.5-5.1) mmol/L Chloride (98-107) mmol/L Carbon Dioxide (21-32) mmol/L Anion Gap (3-11) BUN (6-23) mg/dl Creatinine (0.6-1.4) mg/dl Est Cr Clr Drug Dosing Est GFR ( Amer) ml/min Est GFR (Non-Af Amer) ml/min BUN/Creatinine Ratio (10-20) Glucose (70-99(Fasting)) mg/dl Osmolality 305 H (280-300) mOsm/kg Calcium (8.6-10.3) mg/dl Magnesium (1.7-2.4) mg/dl Total Bilirubin (0.2-1.0) mg/dl AST (13-39) U/L ALT (7-52) U/L Alkaline Phosphatase (34-104) U/L Troponin I High Sens (0-20) pg/ml B-Natriuretic Peptide 709 H (0-100) pg/ml Total Protein (6.0-8.3) gm/dl Albumin (3.4-5.0) gm/dl Globulin (2.5-4.0) gm/dl Albumin/Globulin Ratio (0.9-2) Urine Color Urine Appearance (Clear) Urine pH (4.5-7.5) Ur Specific [place] (1.000-1.030) Urine Protein (Negative) Urine Glucose (UA) (Negative) Urine Ketones (Negative) Urine Blood (Negative) Urine Nitrite (Negative) Urine Bilirubin (Negative) Urine Urobilinogen (Negative) Ur Leukocyte Esterase (Negative) Urine WBC (Auto) (0-5) /hpf Urine RBC (Auto) (0-4) /hpf U Hyaline Cast (Auto) (0-5) /lpf U Epithel Cells (Auto) (0-5) /lpf Urine Bacteria (Auto) (Negative) Urine Osmolality (500-800) mOsm/kg Ur Random Sodium mmol/L SARS-CoV-2, RNA, NAAT NEGATIVE (NEGATIVE) 02/12/23 02/12/23 02/12/23 Range/Units 14:10 13:08 13:08 WBC (4.8-10.8) K/ul RBC (4.70-6.10) M/uL Hgb (14.0-18.0) g/dl Hct (42.0-52.0) % MCV (80.0-100.0) fL MCH (25.0-34.0) pg MCHC (32.0-36.0) g/dL RDW Std Deviation (36.4-46.3) fL RDW Coeff of Howie (11.5-14.5) % Plt Count (130-400) K/uL MPV (9.4-12.4) fL Immature Gran % (Auto) % Neut % (Auto) % Lymph % (Auto) % [place] % (Auto) % Eos % (Auto) % Baso % (Auto) % Neut # (Auto) (1.40-6.50) K/uL Lymph # (Auto) (1.2-3.4) K/uL [place] # (Auto) (0.11-0.59) K/uL Eos # (Auto) (0-0.50) K/uL Baso # (Auto) (0-0.2) K/uL Immature Gran # (Auto) (0.01-0.20) K/uL PT 15.1 H Cancelled INR 1.4 H Cancelled APTT 31.1 H Cancelled PTT Ratio 1.1 Cancelled Sodium 129 L (136-145) mmol/L Potassium 4.5 (3.5-5.1) mmol/L Chloride 93 L (98-107) mmol/L Carbon Dioxide 25 (21-32) mmol/L Anion Gap 11 (3-11) BUN 54 H (6-23) mg/dl Creatinine 3.07 H (0.6-1.4) mg/dl Est Cr Clr Drug Dosing Not Reportable Est GFR ( Amer) 23.5 ml/min Est GFR (Non-Af Amer) 20.3 ml/min BUN/Creatinine Ratio 17.6 (10-20) Glucose 147 H (70-99(Fasting)) mg/dl Osmolality (280-300) mOsm/kg Calcium 9.1 (8.6-10.3) mg/dl Magnesium (1.7-2.4) mg/dl Total Bilirubin 2.9 H (0.2-1.0) mg/dl AST 48 H (13-39) U/L ALT 16 (7-52) U/L Alkaline Phosphatase 75 (34-104) U/L Troponin I High Sens 10.6 (0-20) pg/ml B-Natriuretic Peptide (0-100) pg/ml Total Protein 7.6 (6.0-8.3) gm/dl Albumin 3.6 (3.4-5.0) gm/dl Globulin 4.0 (2.5-4.0) gm/dl Albumin/Globulin Ratio 0.9 (0.9-2) Urine Color Urine Appearance (Clear) Urine pH (4.5-7.5) Ur Specific [place] (1.000-1.030) Urine Protein (Negative) Urine Glucose (UA) (Negative) Urine Ketones (Negative) Urine Blood (Negative) Urine Nitrite (Negative) Urine Bilirubin (Negative) Urine Urobilinogen (Negative) Ur Leukocyte Esterase (Negative) Urine WBC (Auto) (0-5) /hpf Urine RBC (Auto) (0-4) /hpf U Hyaline Cast (Auto) (0-5) /lpf U Epithel Cells (Auto) (0-5) /lpf Urine Bacteria (Auto) (Negative) Urine Osmolality (500-800) mOsm/kg Ur Random Sodium mmol/L SARS-CoV-2, RNA, NAAT (NEGATIVE) 02/12/23 Range/Units 13:08 WBC 9.17 (4.8-10.8) K/ul RBC 2.53 L (4.70-6.10) M/uL Hgb 8.9 L (14.0-18.0) g/dl Hct 25.4 L (42.0-52.0) % MCV 100.4 H (80.0-100.0) fL MCH 35.2 H (25.0-34.0) pg MCHC 35.0 (32.0-36.0) g/dL RDW Std Deviation 59.6 H (36.4-46.3) fL RDW Coeff of Howie 16.1 H (11.5-14.5) % Plt Count 151 (130-400) K/uL MPV 10.9 (9.4-12.4) fL Immature Gran % (Auto) 1.0 % Neut % (Auto) 67.3 % Lymph % (Auto) 17.4 % [place] % (Auto) 7.0 % Eos % (Auto) 6.0 % Baso % (Auto) 1.3 % Neut # (Auto) 6.17 (1.40-6.50) K/uL Lymph # (Auto) 1.60 (1.2-3.4) K/uL [place] # (Auto) 0.64 H (0.11-0.59) K/uL Eos # (Auto) 0.55 H (0-0.50) K/uL Baso # (Auto) 0.12 (0-0.2) K/uL Immature Gran # (Auto) 0.09 (0.01-0.20) K/uL PT INR APTT PTT Ratio Sodium (136-145) mmol/L Potassium (3.5-5.1) mmol/L Chloride (98-107) mmol/L Carbon Dioxide (21-32) mmol/L Anion Gap (3-11) BUN (6-23) mg/dl Creatinine (0.6-1.4) mg/dl Est Cr Clr Drug Dosing Est GFR ( Amer) ml/min Est GFR (Non-Af Amer) ml/min BUN/Creatinine Ratio (10-20) Glucose (70-99(Fasting)) mg/dl Osmolality (280-300) mOsm/kg Calcium (8.6-10.3) mg/dl Magnesium (1.7-2.4) mg/dl Total Bilirubin (0.2-1.0) mg/dl AST (13-39) U/L ALT (7-52) U/L Alkaline Phosphatase (34-104) U/L Troponin I High Sens (0-20) pg/ml B-Natriuretic Peptide (0-100) pg/ml Total Protein (6.0-8.3) gm/dl Albumin (3.4-5.0) gm/dl Globulin (2.5-4.0) gm/dl Albumin/Globulin Ratio (0.9-2) Urine Color Urine Appearance (Clear) Urine pH (4.5-7.5) Ur Specific [place] (1.000-1.030) Urine Protein (Negative) Urine Glucose (UA) (Negative) Urine Ketones (Negative) Urine Blood (Negative) Urine Nitrite (Negative) Urine Bilirubin (Negative) Urine Urobilinogen (Negative) Ur Leukocyte Esterase (Negative) Urine WBC (Auto) (0-5) /hpf Urine RBC (Auto) (0-4) /hpf U Hyaline Cast (Auto) (0-5) /lpf U Epithel Cells (Auto) (0-5) /lpf Urine Bacteria (Auto) (Negative) Urine Osmolality (500-800) mOsm/kg Ur Random Sodium mmol/L SARS-CoV-2, RNA, NAAT (NEGATIVE) Diagnostic Findings Chest X-Ray 02/12/23 11:42 XR chest 1V not portable CLINICAL HISTORY: Chest pain, nonspecific TECHNIQUE: Single frontal radiograph of the chest was obtained. Comparison: Comparison is made to chest radiograph 01/23/2020 FINDINGS: No lines and tubes are seen. Cardiomegaly is noted. Faint bibasilar airspace opacities are seen. Pulmonary vascular congestion is somewhat improved from prior exam. No evidence of pleural effusion or pneumothorax. IMPRESSION: 1. Faint bibasilar airspace opacities which may represent atelectasis, pneumonia, and/or aspiration. 2. Cardiomegaly and mild pulmonary vascular congestion. ACT 112: Negative or not required by law. Electronically signed by: Hector Rosales M.D. 02/12/2023 12:32 PM Liver Ultrasound 02/12/23 16:48 Exam(s): US LIVER EXAM: US Abdomen Limited CLINICAL HISTORY: Reason for exam: volume overload, hx of cirrhosis. TECHNIQUE: Real-time ultrasound of the abdomen with image documentation. COMPARISON: CT abdomen and pelvis 04/04/2022. FINDINGS: Liver: Hepatomegaly. Cirrhotic morphology of the liver. Liver measures up to the 18.9 cm. Gallbladder: Gallbladder is contracted. Common bile duct measures 4 mm. Pancreas: Pancreas is obscured by bowel gas. Kidneys: Right kidney measures up to 11.9 cm in long axis. Free fluid: Ascites is present. IMPRESSION: Cirrhotic morphology of the liver with ascites. Consider evaluation with MRI as clinically warranted. Electronically signed by: Demetrius Merida MD 02/12/23 22:53 PM Abdomen Ultrasound 02/12/23 17:37 Exam(s): US ABDOMEN LIMITED EXAM: US Abdomen Limited CLINICAL HISTORY: Reason for exam: renal and liver dysfunction, distended abd. TECHNIQUE: Real-time ultrasound of the abdomen with image documentation. COMPARISON: CT abdomen pelvis 04/04/2022. FINDINGS: Free fluid: Small amount of ascites which appears most significant in the left lower quadrant. IMPRESSION: Small amount of ascites which appears most significant in the left lower quadrant. Electronically signed by: Demetrius Merida MD 02/12/23 22:54 PM PG Care Time/CCT Total # of Minutes Spent Total Time Spent with Patient: Total time spent is greater than 50% in coordination of care (as documented) at patient's floor/unit and/or counseling patient: Coding Level of Care Code 89319 SUB INP/OBS CARE 3/50MIN Diagnoses Volume overload E87.70 Acute kidney injury superimposed on CKD N17.9; N18.9 Anemia D64.9 Anemia type: unspecified type Cirrhosis K74.60 Hyponatremia E87.1 S/P ablation of atrial fibrillation Z98.890; Z86.79 CML (chronic myelocytic leukemia) C92.10 Hypothyroidism E03.9 Hypertension I10 GERD (gastroesophageal reflux disease) K21.9 Vitamin D deficiency E55.9 Folate deficiency E53.8 (3) Anemia Anemia type: unspecified type Qualified Code(s): D64.9 - Anemia, unspecified
[2023-02-13] MEDS: BUMETANIDE 4 MG in SYRINGE 0 ML IV SCH ×2 (08:59→20:18)
[2023-02-13 09:48] LABS: Ferritin 128.7 ng/ml (8-388)
[2023-02-13 09:56] LABS: Thyroid Stimulating Hormone 4.554 uIu/ml (0.300-4.500)
[2023-02-13 10:10] LABS: Vitamin D, 25 Hydrox 25.6 ng/ml (30-100)
[2023-02-13] MEDS: FOLIC ACID 1 MG TAB PO SCH (10:13)
[2023-02-13] MEDS: CHOLECALCIFEROL 1,000 UNITS 25 MCG TAB PO SCH (10:16)
[2023-02-13 10:31] LABS: T4 Free Thyroxine 1.18 ng/dl (0.61-1.60)
--- NOTE | 2023-02-13 12:28 | Nephrology Consultation ---
Date of Consultation February 13, 2023 Assessment & Plan (1) Acute kidney injury: * ANNA/CKD likely related to CHF. Urinalysis is negative for blood or protein. Urine microscopy was negative for casts. * Will order renal US * Monitor PRP (2) CKD (chronic kidney disease): * Baseline Cr has been 1.5 w/ EGFR 49 cc/min. UPCR has been < 0.2 (3) Volume overload: * High dietary sodium intake likely renders loop diuretic ineffective * Recommend 1500 mg/day NaCl restricted diet * Will ask dietitian to provide education * Consider discussion w/ case management to see if patient and spouse qualify for meals on wheels (low dietary Na - does not cook and cares for spouse who is disabled) * Continue Bumex 4 mg IV BID - patient has 650 cc diuresis since admission * Monitor PRP, UO, weight (4) Anemia: * Hgb 8.4 * Will order FOBT * Iron saturation 27%, ferritin 129 - will order IV Venofer History of Present Illness Reason for Consultation: ANNA/CKD, LE edema Attending Physician: Jose Reyna MD History of Present Illness Mr. Bashir is a 67 year old male who is seen at the request of the hospitalist service for evaluation of ANNA/CKD and progressive LE edema. Medical records in the EMR were reviewed today and are summarized as follows: Mr. Bashir has CKD s tage G3a/A1. Baseline Cr has been 1.5 w/ EGFR 49 cc/min. UPCR has been < 0.2. His medical history is significant for CML, appendiceal CA s/p R hemicolectomy, atrial fibrillation/flutter, hypothyroidism, obesity, and chronic LE lymphedema. As an outpatient Mr. Bashir has maintained his volume status w/ Bumetanide 2 mg po daily. Mr. Bashir reports a "target weight" of 270 lbs. Mr. Bashir notes that his has suffered medical complications following neck surgery. He now cares for her at home. Mr. Bashir does not cook. They have been eating all prepackaged food. Mr. Bashir readily acknowledges a high dietary Na intake. His weight today has risen to 309 lbs. Mr. Bashir c/o FLORES and tense LE edema limiting his ability to ambulate. Allergies Allergy/AdvReac Type Severity Reaction Status Date / Time bee venom protein (honey bee) Allergy Severe DYSPNEA;SWE Verified 02/06/23 13:15 LLING latex Allergy Intermediate Rash Verified 02/06/23 13:15 Penicillins Allergy Unknown HAPPENED Verified 02/06/23 13:15 A CHILD Home Medications Medication Instructions Recorded Confirmed Type epinephrine 0.3 mg/0.3 mL 0.3 mg (0.3 mL) IM Q10M PRN 08/06/21 02/12/23 Rx injection, auto-injector (EpiPen anaphylaxis #2 ea 2-Sb) tadalafil 20 mg tablet 20 mg PO DAILY PRN Erectile 08/06/21 02/12/23 History Dysfunction triamcinolone acetonide 0.1 % 1 applic topical DAILY PRN Skin 02/08/22 02/12/23 Rx topical ointment Irritation #80 grams metoprolol succinate 100 mg 50 mg PO QAM 04/24/22 02/12/23 History tablet,extended release 24 hr levothyroxine 137 mcg tablet 137 mcg PO QPM 09/02/22 02/12/23 History menthol 0.44 %-zinc oxide 20.6 % 1 applic EXT DIRECTED 09/17/22 02/12/23 History topical ointment (Calmoseptine) spironolactone 100 mg tablet 100 mg PO QAM #90 tabs 10/31/22 02/12/23 Rx allopurinol 300 mg tablet 300 mg PO QDL 01/07/23 02/12/23 History mesalamine 0.375 gram 1.5 g PO QDL 01/07/23 02/12/23 History capsule,extended release 24 hr magnesium oxide 400 mg (241.3 mg 400 mg PO BID #60 tabs 01/28/23 02/12/23 Rx magnesium) tablet bumetanide 2 mg tablet 2 mg PO DAILY 02/06/23 02/12/23 History Patient History Medical History Acute kidney injury Anemia Atrial flutter 10/02/2020: Ablation of typical right atrial isthmus dependent flutter. 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 Giraldo Cirrhosis CML (chronic myelocytic leukemia) no chemo at present COVID-19 GERD (gastroesophageal reflux disease) Hemangioma History of COVID-12 Dec 2021 > not hospitalized Hypertension Hypokalemia Hypothyroidism Low platelet count Lymphedema Murmur Paroxysmal A-fib resolved with ablation Pulmonary embolism Aug 2022 > was treated with Eliquis and now finished Right heart failure SVT (supraventricular tachycardia) 01/21/2012: Ablation of typical slow fast AVNRT [facility] Trifascicular block follows with Dr. Painter Ulcerative colitis Venous ulcer of left leg Venous ulcers of both lower extremities Vitamin D deficiency Surgical History H/O hernia repair (12/04/12) H/O laparoscopy H/O left knee surgery H/O lymph node excision 36 total H/O right hemicolectomy 36 lymph nodes removed as well History of appendectomy History of colonoscopy History of esophagogastroduodenoscopy (EGD) History of removal of Port-a-Cath History of tooth extraction Status post ablation of atrial flutter (12/04/12) 2020 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) Family History Grandmother (Paternal) Colorectal cancer Father Myocardial infarction Prostate cancer Denies family history of Ovarian cancer Dementia Breast cancer Social History Smoking Status: Never smoker Second Hand Exposure: No; Hx Alcohol Use: Yes Alcohol type: beer Hx Substance Use: No Preferred Language: Bangladeshi Communication Ability: Effective Visual Impairment: Limited Hearing Ability: Normal Paper Machine Backtender Required: No Beliefs That Will Affect Care: Holiness marital status: Current Living Situation: Spouse Current Living Situation Comment: Lives with who has her own healthcare issues 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 How many Children do You have: 2 Other Information That Helps Us Care for You: No Feels Safe at Home: Yes Safety Concerns: Feels Safe At This Time Childhood Exposure to Second-Hand Smoke: No Diet Comment: 2000 cc fluid restriction during the past year weight has: increased > 10 lbs Dental Care, Regularly: Yes Physical Activity Frequency: Daily Seatbelt Use: always Sunscreen Use: Yes Assistive Devices: Cane Review of Systems Constitutional: no fever Eyes: no worsening vision Ear, Nose, Mouth, Throat: no problem reported Respiratory: no cough and no dyspnea Cardiovascular: no chest pain Additional Comments: + LE swelling Gastrointestinal: no abdominal pain Genitourinary: no dysuria, no urinary hesitancy or no hematuria Musculoskeletal: no back pain Integumentary: no rash Neurologic: no falls, no dizziness and no confusion Physical Exam Constitutional: + morbidly obese Eyes: PERRL, conjunctivae normal, anicteric sclerae ENMT: external ear and nose normal, oropharynx normal Neck: trachea midline, no thyromegaly Respiratory: normal respiratory effort, lungs clear to auscultation Cardiovascular: Rate/Rhythm: regular rate and regular rhythm Heart Sounds: + murmur Extremities: + edema (tense pretibial edema) Gastrointestinal (Abdomen): Inspection/Auscultation: + abdomen distended Percussion/Palpation: abdomen nontender and no guarding Neurologic: awake; not confused Results & Data Vital Signs (Past 12 Hours) Vital Signs Temp Pulse Resp BP Pulse Ox O2 Del Method 02/13/23 11:35 Room Air 02/13/23 11:28 36.6 C 75 18 122/65 95 Room Air 02/13/23 08:07 36.6 C 81 16 147/63 H 94 Room Air Laboratory Results Laboratory Tests 08/05/22 10/08/22 10/30/22 13:59 10:47 12:24 WBC Hgb Hct Plt Count Sodium 140 Potassium Chloride Carbon Dioxide BUN Creatinine 1.32 0.93 Urine Appearance Urine pH Ur Specific [place] Urine Protein Urine Glucose (UA) Urine Blood Urine RBC (Auto) Urine Osmolality Microalb/Creat Ratio 01/14/23 01/23/23 01/24/23 12:47 05:29 01:14 WBC Hgb Hct Plt Count Sodium 128 L Potassium Chloride Carbon Dioxide BUN Creatinine 1.84 H Urine Appearance Urine pH Ur Specific [place] Urine Protein Urine Glucose (UA) Urine Blood Urine RBC (Auto) Urine Osmolality Microalb/Creat Ratio 6.2 01/28/23 02/03/23 02/06/23 05:57 00:00 14:21 WBC Hgb Hct Plt Count Sodium Potassium Chloride Carbon Dioxide BUN Creatinine 1.88 H 1.95 H 2.39 H Urine Appearance Urine pH Ur Specific [place] Urine Protein Urine Glucose (UA) Urine Blood Urine RBC (Auto) Urine Osmolality Microalb/Creat Ratio 0302/12/23 02/12/23 00:00 13:08 20:53 WBC Hgb Hct Plt Count Sodium Potassium Chloride Carbon Dioxide BUN Creatinine 3.13 H 3.07 H Urine Appearance Clear Urine pH 5.0 Ur Specific [place] 1.010 Urine Protein Negative Urine Glucose (UA) Negative Urine Blood Negative Urine RBC (Auto) 0-4 Urine Osmolality Microalb/Creat Ratio 02/12/23 02/13/23 02/13/23 20:53 07:11 07:11 WBC 9.86 Hgb 8.4 L Hct 24.9 L Plt Count 129 L Sodium 130 L Potassium 4.2 Chloride 94 L Carbon Dioxide 28 BUN 58 H Creatinine 2.91 H Urine Appearance Urine pH Ur Specific [place] Urine Protein Urine Glucose (UA) Urine Blood Urine RBC (Auto) Urine Osmolality 295 L Microalb/Creat Ratio Diagnostic Findings 02/12/23 CXR: 1. Faint bibasilar airspace opacities which may represent atelectasis, pneumonia, and/or aspiration. 2. Cardiomegaly and mild pulmonary vascular congestion. 02/12/23 Liver US: Cirrhotic morphology of the liver with ascites. Consider evaluation with MRI as clinically warranted. 02/12/23 Abdominal US: Small amount of ascites which appears most significant in the left lower quadrant. PG Care Time/CCT Total # of Minutes Spent Total Time Spent with Patient: Total time spent is greater than 50% in coordination of care (as documented) at patient's floor/unit and/or counseling patient: Coding Level of Care Code 32974 IN/OBS CONSULT LVL 5,80M Diagnoses Acute kidney injury N17.9 CKD (chronic kidney disease) N18.9 Volume overload E87.70 Anemia D64.9 Anemia type: unspecified type (4) Anemia Anemia type: unspecified type Qualified Code(s): D64.9 - Anemia, unspecified
[2023-02-13] MEDS: allopurinoL 300 MG TAB PO SCH (12:45)
--- NOTE | 2023-02-13 12:50 | XCELERA ---
[id number] \\[id number]
[2023-02-13] MEDS: IRON SUCROSE 300 MG in SODIUM CHLORIDE 0.9% 250 ML IV SCH (13:46)
--- NOTE | 2023-02-13 13:51 | Ultrasound Report ---
RENAL ULTRASOUND HISTORY: Acute kidney injury. COMPARISON: Abdominal ultrasound 02/12/2023. Abdomen and pelvis CT 04/04/2022. FINDINGS: Suboptimal evaluation of the kidneys due to the patient's body habitus. Right kidney: 11.7 cm. No hydronephrosis. Normal corticomedullary differentiation and cortical thickn ess. Left kidney: 11.2 cm. No hydronephrosis. Normal corticomedullary differentiation and cortical thickne ss. Bladder: Decompressed by the Vela catheter and not well visualized. IMPRESSION: Suboptimal evaluation of the kidneys/bladder due to the patient's body habitus. No hydronephrosis. ACT 112: Negative or not required by law. Electronically signed by: Mario Campbell M.D. 02/13/2023 1:49 PM
[2023-02-13] MEDS: AMMONIUM LACTATE 12% LOTION 225 GM BTL EXT SCH (17:47)
[2023-02-13] MEDS: LEVOTHYROXINE SODIUM 137 MCG TABLET PO SCH (20:17)
[2023-02-14] MEDS: HEPARIN SOD 5,000 UNIT/0.5 ML VIAL SQ SCH ×3 (05:31→21:00)
[2023-02-14 07:24] LABS: Hematocrit (blood only) 25.4 % (42.0-52.0); Hemoglobin 8.7 g/dl (14.0-18.0); Mean Corpuscular Hemoglobin 34.7 pg (25.0-34.0); Mean Corpuscular Hgb Conc 34.3 g/dL (32.0-36.0); Mean Corpuscular Volume 101.2 fL (80.0-100.0); Mean Platelet Volume 10.1 fL (9.4-12.4); Platelet Count 124 K/uL (130-400); RDW Coefficient of Variation 16.1 % (11.5-14.5); RDW Standard Deviation 59.8 fL (36.4-46.3); Red Blood Count 2.51 M/uL (4.70-6.10); White Blood Count 9.35 K/ul (4.8-10.8)
[2023-02-14 07:55] LABS: INR 1.6 (0.9-1.1); Prothrombin Time 16.4 Seconds (9.0-12.0)
--- NOTE | 2023-02-14 08:10 | Hospitalist Progress Note ---
Date of Service February 14, 2023 Assessment & Plan (1) Volume overload: Plan: Has had significant volume overload/swelling/weight gain since discharge on 01/28, BNP elevated to 709 (highest it has ever been) Likely due to only taking bumex once daily but had been taking his spironolactone 100mg daily Patient has had very little daily urine output on daily Bumex dosing, was recommended for admission by Dr. Giraldo of Nephrology as she has been following outpatient 2mg IV bumex in the ED Continue Bumex 4 mg IV BID, spirnolactone 100mg daily Nephrology consulted Checking Renal UA for ANNA for further eval -- no obstruction. UA neg for blood/protein. Microscopy neg for casts Iron studies w/ iron 27%, ferriting 129 --> Venofer ordered by nephrology for his anemia 2/4 doses Monitor daily weights/I&O, Net negative -2.5L thus far, Cr improving w/ diuretic therapy low Na diet, credit administrator consulted ?CM to see about low Na meals on wheels given discussion w/ patient and caring for his since last summer w/ back infection and eating out/prepared meals and he does endorse he has not really being taking care of himself -- info for MOMs/low Na meals, vouchers for [employer] provided ECHO to eval worsening EF --> EF not reduced Report: LV systolic function normal.EF 60-65%. LA mod dilated, mild valvular aortic stenosis, mild mitral regurgitation. RVSP elevated at 40-50mmHg. IVC mildly dilated. K replacement ordered for this morning for K 3.2, additional dose for this evening given bumex 4mg IV Mag 1.7, will order 1gm IV. On mag oxide BID. Consider increasing to TID/monitor diarrhea Monitor labs on repeat/electrolyte replacement as needed (2) Acute kidney injury superimposed on CKD: Plan: Cr 3.07 on admit, 2nd to volume overload/anemia/vit d def/etc ?cardio vs hepatorenal Iron panel checked -- venofer ordered by nephrology, daily (day 2) repleting folate, vit D given prior deficiency Nephrology consulted Renal US ordered for further eval, poor imaging given body habitus, no obstructions noted Avoid nephrotoxins/renal dose meds as possible Cr 2.91--> improved to 2.27 on AM labs w/ diuretics and will continue Monitor BMP (3) Anemia: Plan: chronic, hx CML following w/ CCP Checked iron panel. Prior B12 in Dec wnl 660. Folate was low at 4.24 and does not appear patient on supplementation -- repeat improved but will continue daily supplementation Venofer as above by nephrology, fecal occult ordered for completeness although denied blood in stool in questinging Monitor CBC (4) Cirrhosis: Plan: Has a knwon history , denies ETOH Total bili 2.9, down from 6.7 as of 01/22, INR at 1.4 (down from 1.7 as of 01/22/23) on admit Tb 3.8, AST 40 Liver US w/ small amt ascites --> not having abdominal pain Continue increased dose bumex 4mg IV BID ( ?switching to torsemide), spironolactone 100mg daily Low Na diet encouraged -- see above regarding issues w/ meals at home Consider GI consultation if needed but appears can be deferred and set up outpatient Monitor LFts (5) Hyponatremia: Plan: Sodium noted to be 129 with a glucose of 147 on admission Na improved 136 on AM labs w/ diuresis TSH minimal elevation w/ normal T4-- repeat outpatient. If TSH higher, would increase his Synthroid Nephrology following, fluid restriction, diuretics as outlined Encouraged low Na diet/fluid restriction at home Monitor BMP (6) S/P ablation of atrial fibrillation: Plan: Stable No currently on anticoagulation -- EKG on admit NSR, L anterior fascicular block, RBBB Continue metoprolol keep K/mag replete (7) CML (chronic myelocytic leukemia): Plan: [facility], they are currently monitoring (8) Hypothyroidism: Plan: Continue levothyroxine TSH slight elevation 4.554, but Ft4 wnl 1.18 -- could consider increasing Synthroid to 150mcg daily vs repeat labs in f/u with PCP/adjustment (9) Hypertension: Plan: Stable 113/58 Continue metoprolol and Diuresis (10) GERD (gastroesophageal reflux disease): Plan: Daily famotidine while admitted no sx reported currently (11) Vitamin D deficiency: Plan: replacement ordered (12) Folate deficiency: Plan: prior low dec 2022, repeat ordered and replacement Lymphedema -- Wound RN consulted -- Seen w/ wound RN -- amlactin ordered NON TENDER/NO LEUKOCYTOSIS or fever Monitor for any infection, just completed course Zosyn for LE cellulitis Plan continued inpatient stay on diuretics Admission and Anticipated Discharge Date Admission Date: February 12, 2023 Supervising Physician Co-Signing Physician Notes The patient was not seen by me. The chart was reviewed. Case discussed with SHERRON Clark. Agree with assessment and plan Subjective eval this morning, resting in bed, no issues but had some cramping in his leg, ordered K for hypokalemia this morning and discussed additional dose ordered tonight w/ bumex. Urine output picked up, clear yellow draining from soto Cr improved. Discussed meals on wheels/low salt-- he wants to get rid of the high salt foods and get better care of himself. Using amlactin to legs, RN to change dressing daily -- serosanguineous drainage LLE at present. Questions/concerns addressed at this time. Physical Exam Physical Exam: General: WD obese male sitting up in bed, NAD, chronically ill appearing HEENT head normocephalic, atraumatic, pupils equal/reactive to light, mmm, trachea midline Resp: CTA, diminished in bases but without w/c/r, 98% on RA CV: RRR, +systolic murmur, , +LE edema/lymphedema, nontender GI: +BS, distended, nontender MSK/Neuro: no focal deficits Psych: AOx3, cooperative with care Skin: b/l LE lymphedema, some serous drainage, cracking of skin but no obvious open/draining lesions, thickened skin c/w lymphedema Results & Data Results & Data Vital Signs (Past 12 Hours) Vital Signs Temp Pulse Resp BP Pulse Ox O2 Del Method 02/14/23 07:44 36.5 C 80 14 131/71 96 Room Air 02/14/23 01:23 Room Air 02/13/23 20:35 36.5 C 80 16 122/78 98 Room Air Laboratory Results 02/14/23 02/14/23 02/14/23 Range/Units 06:28 06:28 06:28 WBC 9.35 (4.8-10.8) K/ul RBC 2.51 L (4.70-6.10) M/uL Hgb 8.7 L (14.0-18.0) g/dl Hct 25.4 L (42.0-52.0) % MCV 101.2 H (80.0-100.0) fL MCH 34.7 H (25.0-34.0) pg MCHC 34.3 (32.0-36.0) g/dL RDW Std Deviation 59.8 H (36.4-46.3) fL RDW Coeff of Howie 16.1 H (11.5-14.5) % Plt Count 124 L (130-400) K/uL MPV 10.1 (9.4-12.4) fL PT 16.4 H (9.0-12.0) Seconds INR 1.6 H (0.9-1.1) Sodium 136 (136-145) mmol/L Potassium 3.2 L D (3.5-5.1) mmol/L Chloride 105 (98-107) mmol/L Carbon Dioxide 25 (21-32) mmol/L Anion Gap 6 (3-11) BUN 48 H (6-23) mg/dl Creatinine 2.27 H D (0.6-1.4) mg/dl Est Cr Clr Drug Dosing 44.9 ml/min Est GFR ( Amer) 33.8 ml/min Est GFR (Non-Af Amer) 29.2 ml/min BUN/Creatinine Ratio 21.1 H (10-20) Glucose 106 H (70-99(Fasting)) mg/dl Calcium 7.4 L (8.6-10.3) mg/dl Magnesium 1.7 (1.7-2.4) mg/dl Iron (35-175) mcg/dl TIBC (250-450) mcg/dl Unsaturated IBC (155-355) mcg/dl Transferrin % Sat (20-50) % Ferritin (8-388) ng/ml Total Bilirubin 3.4 H (0.2-1.0) mg/dl AST 30 (13-39) U/L ALT 12 (7-52) U/L Alkaline Phosphatase 56 (34-104) U/L Total Protein 5.8 L D (6.0-8.3) gm/dl Albumin 2.7 L (3.4-5.0) gm/dl Globulin 3.1 (2.5-4.0) gm/dl Albumin/Globulin Ratio 0.9 (0.9-2) 25-OH Vitamin D Total (30-100) ng/ml Folate (>5.38) ng/ml TSH (0.300-4.500) uIu/ml Free T4 (0.61-1.60) ng/dl 02/13/23 02/13/23 02/13/23 Range/Units 09:04 09:04 07:11 WBC (4.8-10.8) K/ul RBC (4.70-6.10) M/uL Hgb (14.0-18.0) g/dl Hct (42.0-52.0) % MCV (80.0-100.0) fL MCH (25.0-34.0) pg MCHC (32.0-36.0) g/dL RDW Std Deviation (36.4-46.3) fL RDW Coeff of Howie (11.5-14.5) % Plt Count (130-400) K/uL MPV (9.4-12.4) fL PT (9.0-12.0) Seconds INR (0.9-1.1) Sodium (136-145) mmol/L Potassium (3.5-5.1) mmol/L Chloride (98-107) mmol/L Carbon Dioxide (21-32) mmol/L Anion Gap (3-11) BUN (6-23) mg/dl Creatinine (0.6-1.4) mg/dl Est Cr Clr Drug Dosing ml/min Est GFR ( Amer) ml/min Est GFR (Non-Af Amer) ml/min BUN/Creatinine Ratio (10-20) Glucose (70-99(Fasting)) mg/dl Calcium (8.6-10.3) mg/dl Magnesium (1.7-2.4) mg/dl Iron 73 (35-175) mcg/dl TIBC 272 (250-450) mcg/dl Unsaturated IBC 199 (155-355) mcg/dl Transferrin % Sat 27 (20-50) % Ferritin 128.7 (8-388) ng/ml Total Bilirubin (0.2-1.0) mg/dl AST (13-39) U/L ALT (7-52) U/L Alkaline Phosphatase (34-104) U/L Total Protein (6.0-8.3) gm/dl Albumin (3.4-5.0) gm/dl Globulin (2.5-4.0) gm/dl Albumin/Globulin Ratio (0.9-2) 25-OH Vitamin D Total 25.6 L (30-100) ng/ml Folate 8.74 (>5.38) ng/ml TSH 4.554 H (0.300-4.500) uIu/ml Free T4 1.18 (0.61-1.60) ng/dl Diagnostic Findings Renal Ultrasound 02/13/23 12:31 RENAL ULTRASOUND HISTORY: Acute kidney injury. COMPARISON: Abdominal ultrasound 02/12/2023. Abdomen and pelvis CT 04/04/2022. FINDINGS: Suboptimal evaluation of the kidneys due to the patient's body habitus. Right kidney: 11.7 cm. No hydronephrosis. Normal corticomedullary differentiation and cortical thickness. Left kidney: 11.2 cm. No hydronephrosis. Normal corticomedullary differentiation and cortical thickness. Bladder: Decompressed by the Soto catheter and not well visualized. IMPRESSION: Suboptimal evaluation of the kidneys/bladder due to the patient's body habitus. No hydronephrosis. ACT 112: Negative or not required by law. Electronically signed by: Mario Campbell M.D. 02/13/2023 1:49 PM PG Care Time/CCT Total # of Minutes Spent Total Time Spent with Patient: Total time spent is greater than 50% in coordination of care (as documented) at patient's floor/unit and/or counseling patient: Coding Level of Care Code 05921 SUB INP/OBS CARE 3/50MIN Diagnoses Volume overload E87.70 Acute kidney injury superimposed on CKD N17.9; N18.9 Anemia D64.9 Anemia type: unspecified type Cirrhosis K74.60 Hyponatremia E87.1 S/P ablation of atrial fibrillation Z98.890; Z86.79 CML (chronic myelocytic leukemia) C92.10 Hypothyroidism E03.9 Hypertension I10 GERD (gastroesophageal reflux disease) K21.9 Vitamin D deficiency E55.9 Folate deficiency E53.8 (3) Anemia Anemia type: unspecified type Qualified Code(s): D64.9 - Anemia, unspecified
[2023-02-14 08:12] LABS: Albumin Globulin Ratio 0.9 (0.9-2); Albumin Level 2.7 gm/dl (3.4-5.0); BUN Creatinine Ratio 21.1 (10-20); Bilirubin,Total 3.4 mg/dl (0.2-1.0); Calcium 7.4 mg/dl (8.6-10.3); Creatinine Clr Calc Pharmacy 44.9 ml/min; Est GFR (African American) 33.8 ml/min; Est GFR (Non-African American) 29.2 ml/min; Globulin 3.1 gm/dl (2.5-4.0); Magnesium 1.7 mg/dl (1.7-2.4); Potassium 3.2 mmol/L (3.5-5.1); Total Protein 5.8 gm/dl (6.0-8.3)
[2023-02-14] MEDS: AMMONIUM LACTATE 12% LOTION 225 GM BTL EXT SCH (08:52)
[2023-02-14] MEDS: MAGNESIUM OXIDE 400 MG TAB PO SCH ×2 (08:52→20:31)
[2023-02-14] MEDS: BUMETANIDE 4 MG in SYRINGE 0 ML IV SCH ×2 (08:52→20:31)
[2023-02-14] MEDS: METOPROLOL SUCC 50MG EXT REL TAB PO SCH (08:53)
[2023-02-14] MEDS: CHOLECALCIFEROL 1,000 UNITS 25 MCG TAB PO SCH (08:53)
[2023-02-14] MEDS: FAMOTIDINE 20 MG TAB PO SCH (08:54)
[2023-02-14] MEDS: SPIRONOLACTONE 100 MG TAB PO SCH (08:54)
[2023-02-14] MEDS: FOLIC ACID 1 MG TAB PO SCH (08:55)
--- NOTE | 2023-02-14 09:04 | Nephrology Progress Note ---
Date of Service February 14, 2023 Assessment & Plan (1) Acute kidney injury: Plan: * ANNA/CKD likely related to CHF. Urinalysis is negative for blood or protein. Urine microscopy was negative for casts. * 02/13/23 renal US: R 11.7cm, L 11.2cm. No hydronephrosis * Creatinine improved from 3.1 to 2.27 with diuretic therapy * Monitor PRP (2) CKD (chronic kidney disease): Plan: * Baseline Cr has been 1.5 w/ EGFR 49 cc/min. UPCR has been < 0.2 (3) Volume overload: Plan: * High dietary sodium intake likely renders loop diuretic ineffective * Recommend 1500 mg/day NaCl restricted diet * Will ask dietitian to provide education * Will ask case management to set up low sodium dietary program for Mr. Bashir and his through the office of aging or meals on wheels * Continue Bumex 4 mg IV BID - patient has 2645 cc diuresis since admission * Monitor PRP, UO, weight (4) Anemia: Plan: * Hgb 8.4 * Will order FOBT * Iron saturation 27%, ferritin 129 * Day #2 of 4 IV Venofer Admission and Anticipated Discharge Date Admission Date: February 12, 2023 Subjective Mr. Bashir reports brisk UO in response to IV diuretic therapy and low sodium diet Review of Systems Constitutional: no fever Eyes: no worsening vision Ear, Nose, Mouth, Throat: no problem reported Respiratory: no cough and no dyspnea Cardiovascular: no chest pain Additional Comments: + LE swelling Gastrointestinal: no abdominal pain Genitourinary: no dysuria, no urinary hesitancy or no hematuria Musculoskeletal: no back pain Integumentary: no rash Neurologic: no falls, no dizziness and no confusion Physical Exam Constitutional: + morbidly obese Eyes: PERRL, conjunctivae normal, anicteric sclerae ENMT: external ear and nose normal, oropharynx normal Neck: trachea midline, no thyromegaly Respiratory: normal respiratory effort, lungs clear to auscultation Cardiovascular: Rate/Rhythm: regular rate and regular rhythm Heart Sounds: + murmur Extremities: + edema (tense pretibial edema) Gastrointestinal (Abdomen): Inspection/Auscultation: + abdomen distended Percussion/Palpation: abdomen nontender and no guarding Neurologic: awake; not confused Results & Data Vital Signs (Past 12 Hours) Vital Signs Temp Pulse Resp BP Pulse Ox O2 Del Method 02/14/23 07:45 Room Air 02/14/23 07:44 36.5 C 80 14 131/71 96 Room Air 02/14/23 01:23 Room Air Laboratory Results Laboratory Tests 02/13/23 02/14/23 02/14/23 09:04 06:28 06:28 WBC 9.35 Hgb 8.7 L Hct 25.4 L Plt Count 124 L Sodium 136 Potassium 3.2 L D Chloride 105 Carbon Dioxide 25 BUN 48 H Creatinine 2.27 H D Calcium 7.4 L Albumin 2.7 L 25-OH Vitamin D Total 25.6 L PG Care Time/CCT Total # of Minutes Spent Total Time Spent with Patient: Total time spent is greater than 50% in coordination of care (as documented) at patient's floor/unit and/or counseling patient: Coding Level of Care Code 74287 SUB INP/OBS CARE 3/50MIN Diagnoses Acute kidney injury N17.9 CKD (chronic kidney disease) N18.9 Volume overload E87.70 Anemia D64.9 Anemia type: unspecified type (4) Anemia Anemia type: unspecified type Qualified Code(s): D64.9 - Anemia, unspecified
[2023-02-14] MEDS ORDERED: POTASSIUM CHLORIDE CRTAB 20 MEQ TABCR PO STA (09:07)
[2023-02-14] MEDS ORDERED: MAGNESIUM SULFATE / D5W 1 GM/100 ML BAG IV ONE ×2 (09:08→15:45)
[2023-02-14] MEDS: IRON SUCROSE 300 MG in SODIUM CHLORIDE 0.9% 250 ML IV SCH (09:39)
[2023-02-14] MEDS: allopurinoL 300 MG TAB PO SCH (11:29)
[2023-02-14] MEDS ORDERED: POTASSIUM CHLORIDE CRTAB 20 MEQ TABCR PO ONE (17:00)
[2023-02-14] MEDS: LEVOTHYROXINE SODIUM 137 MCG TABLET PO SCH (20:31)
[2023-02-15] MEDS: HEPARIN SOD 5,000 UNIT/0.5 ML VIAL SQ SCH ×3 (05:21→21:14)
[2023-02-15 07:41] LABS: Hematocrit (blood only) 26.8 % (42.0-52.0); Hemoglobin 8.9 g/dl (14.0-18.0); Mean Corpuscular Hemoglobin 34.2 pg (25.0-34.0); Mean Corpuscular Hgb Conc 33.2 g/dL (32.0-36.0); Mean Corpuscular Volume 103.1 fL (80.0-100.0); Mean Platelet Volume 10.3 fL (9.4-12.4); Platelet Count 129 K/uL (130-400); RDW Standard Deviation 60.8 fL (36.4-46.3); White Blood Count 9.27 K/ul (4.8-10.8)
[2023-02-15 08:06] LABS: Albumin Globulin Ratio 0.8 (0.9-2); Albumin Level 3.5 gm/dl (3.4-5.0); BUN Creatinine Ratio 16.8 (10-20); Bilirubin,Total 3.9 mg/dl (0.2-1.0); Calcium 9.5 mg/dl (8.6-10.3); Creatinine Clr Calc Pharmacy 30.5 ml/min; Est GFR (African American) 21.2 ml/min; Est GFR (Non-African American) 18.3 ml/min; Globulin 4.2 gm/dl (2.5-4.0); Magnesium 2.4 mg/dl (1.7-2.4); Potassium 4.7 mmol/L (3.5-5.1); Total Protein 7.7 gm/dl (6.0-8.3)
[2023-02-15 08:09] LABS: INR 1.5 (0.9-1.1); Prothrombin Time 15.9 Seconds (9.0-12.0)
--- NOTE | 2023-02-15 08:56 | Hospitalist Progress Note ---
Date of Service February 15, 2023 Assessment & Plan (1) Volume overload: Plan: Has had significant volume overload/swelling/weight gain since discharge on 01/28, BNP elevated to 709 (highest it has ever been) Likely due to only taking bumex once daily but had been taking his spironolactone 100mg daily Patient has had very little daily urine output on daily Bumex dosing, was recommended for admission by Dr. Giarldo of Nephrology as she has been following outpatient 2mg IV bumex in the ED Continue Bumex 4 mg IV BID, spirnolactone 100mg daily Nephrology consulted Checking Renal UA for ANNA for further eval -- no obstruction. UA neg for blood/protein. Microscopy neg for casts Iron studies w/ iron 27%, ferriting 129 --> Venofer ordered by nephrology for his anemia 3/4 doses ECHO to eval worsening EF --> EF not reduced (of note, did have trop in 50s last admit, not repeated) ECHO w/o wma Report: LV systolic function normal.EF 60-65%. LA mod dilated, mild valvular aortic stenosis, mild mitral regurgitation. RVSP elevated at 40-50mmHg. IVC mildly dilated. Monitor daily weights/I&O, -Net negative -2.5L on 02/14, currently -3.7L low Na diet, computer network engineer consulted Cr had been improving w/ diuretic therapy, but worsened today Messaged to Nephro for assistance w/ diuretic regimen and holding further bumex for now for possible overdiuresis Also, will check procal/blood cultures given prior possible contaminant last admission for LE cellulitis (however currently nontender/no leukocytosis or fevers) (2) Acute kidney injury superimposed on CKD: Plan: Cr 3.07 on admit, 2nd to volume overload/anemia/vit d def/etc ?cardio vs hepatorenal Iron panel checked -- venofer ordered by nephrology, daily (day 3) repleting folate, vit D given prior deficiency Nephrology consulted Renal US ordered for further eval, poor imaging given body habitus, no obstructions noted Avoid nephrotoxins/renal dose meds as possible Cr 2.91--> improved to 2.27 on AM labs w/ diuretics but worsened to 3.34 on AM labs and holding further bumex Monitor BMP (3) Anemia: Plan: chronic, hx CML following w/ CCP Checked iron panel, venofer as above by nephrology day 3/ B12 wnl, Folate low prior and continues on supplementation (improved from last month, not on home med list but pt states had been taking) Fecal occult NEGATIVE hgb stable, monitor CBC (4) Cirrhosis: Plan: Has a knwon history , denies ETOH Total bili 2.9, down from 6.7 as of 01/22, INR at 1.4 (down from 1.7 as of 01/22/23) on admit Tb 3.8, AST 40 Liver US w/ small amt ascites --> not having abdominal pain Continue increased dose bumex 4mg IV BID ( ?switching to torsemide), negro nolactone 100mg daily --> bumex on hold as above Low Na diet encouraged -- see above regarding issues w/ meals at home Consider GI consultation pending, per message likely outpt f/u Monitor LFts and will need f/u (5) Hyponatremia: Plan: Sodium noted to be 129 with a glucose of 147 on admission Na improved 136 on AM labs w/ diuresis but again low 131 on AM labs and ? if 2nd to overdiuresis TSH minimal elevation w/ normal T4--will check Free t3, if low increase dose to see if helps and repeat outpt WILL CHANGE TO BB BREAKFAST ORDERED QPM and ensure taking correctly at home Nephrology following, fluid restriction, diuretics as outlined Encouraged low Na diet/fluid restriction at home Monitor BMP (6) S/P ablation of atrial fibrillation: Plan: Stable No currently on anticoagulation -- EKG on admit NSR, L anterior fascicular block, RBBB Continue metoprolol keep K/mag replete as needed --low K diet ordered given K 4.7 and spironolactone continued but holding bumex (7) CML (chronic myelocytic leukemia): Plan: [facility], they are currently monitoring consider reaching out friday if needed (8) Hypothyroidism: Plan: Continue levothyroxine TSH slight elevation 4.554, but Ft4 wnl 1.18 -- will check free t3, if low will increase Synthroid for AM (AND ALSO CHANGED DOSING TO AM -- will discuss timing at home w/ patient) Could consider increasing Synthroid to 150mcg daily vs repeat labs in f/u with PCP/adjustment (9) Hypertension: Plan: Stable 113/58 Continue metoprolol w. hold parameters On spironolactone -- continued (10) GERD (gastroesophageal reflux disease): Plan: Daily famotidine while admitted no sx reported currently (11) Vitamin D deficiency: Plan: replacement ordered, continue at d/c (12) Folate deficiency: Plan: prior low dec 2022, repeat ordered and replacement Lymphedema -- Wound RN consulted -- Seen w/ wound RN -- amlactin ordered NON TENDER/NO LEUKOCYTOSIS or fever Monitor for any infection, just completed course Zosyn for LE cellulitis ?CM to see about low Na meals on wheels given discussion w/ patient and caring for his since last summer w/ back infection and eating out/prepared meals and he does endorse he has not really being taking care of himself -- info for MOMs/low Na meals, vouchers for farmers market provided Plan continued inpatient holding further bumex for today/monitor kidney function GI consult pending but suspect outpt follow up (will need CM to ensure arranged as pt w/o follow up last admission) Check procal/blood cultures given prior admit/possible contaminant to see if infection (likely LE/lymphedema but no fever/WBC at present) contributing to issues w/ above as well Admission and Anticipated Discharge Date Admission Date: February 12, 2023 Supervising Physician Co-Signing Physician Notes The patient was not seen by me. The chart was reviewed. Case discussed with SHERRON Clark. Agree with assessment and plan Subjective eval this morning, sitting up in bed, net negative on I&O however as discussed with patient (and he reports being upset about), weights have been essentially unchanged. Soto w/ continued UOP, clear yellow urine. No lightheaded/dizziness. Moved bowels, fecal occult NEGATIVE. No yet seen by nephrology, however discussed possible need for something like metolazone. Also awaiting GI eval given cirrhosis. Physical Exam Physical Exam: General: WD obese male sitting up in recliner with hat on, discouraged to be at the same weight HEENT; head normocephalic, eyes anicteric, trachea midline Resp: CTA, diminished in bases, on room air CV: RRR, +systolic murmur, +LE edema/lymphedema + crusting, wrapped GI: obese, tympanic, DISTENDED but NONTENDER, no guarding/rebound : soto draining yellow urine MSK/Neuro: no focal deficit Psych: AOx3, cooperative but grumpy today Skin: b/l LE lymphedema, some serous drainage, cracking of skin but no obvious open/draining lesions, thickened skin c/w lymphedema Results & Data Results & Data Vital Signs (Past 12 Hours) Vital Signs Temp Pulse Resp BP Pulse Ox O2 Del Method 02/15/23 07:50 36.6 C 69 14 111/55 L 98 Room Air 02/14/23 23:12 Room Air Laboratory Results 02/15/23 02/15/23 02/15/23 Range/Units 07:00 07:00 07:00 WBC 9.27 (4.8-10.8) K/ul RBC 2.60 L (4.70-6.10) M/uL Hgb 8.9 L (14.0-18.0) g/dl Hct 26.8 L (42.0-52.0) % MCV 103.1 H (80.0-100.0) fL MCH 34.2 H (25.0-34.0) pg MCHC 33.2 (32.0-36.0) g/dL RDW Std Deviation 60.8 H (36.4-46.3) fL RDW Coeff of Howie 16.0 H (11.5-14.5) % Plt Count 129 L (130-400) K/uL MPV 10.3 (9.4-12.4) fL PT 15.9 H (9.0-12.0) Seconds INR 1.5 H (0.9-1.1) Sodium 131 L (136-145) mmol/L Potassium 4.7 D (3.5-5.1) mmol/L Chloride 95 L (98-107) mmol/L Carbon Dioxide 30 (21-32) mmol/L Anion Gap 6 (3-11) BUN 56 H (6-23) mg/dl Creatinine 3.34 H D (0.6-1.4) mg/dl Est Cr Clr Drug Dosing 30.5 ml/min Est GFR ( Amer) 21.2 ml/min Est GFR (Non-Af Amer) 18.3 ml/min BUN/Creatinine Ratio 16.8 (10-20) Glucose 115 H (70-99(Fasting)) mg/dl Calcium 9.5 D (8.6-10.3) mg/dl Magnesium 2.4 (1.7-2.4) mg/dl Total Bilirubin 3.9 H (0.2-1.0) mg/dl AST 38 (13-39) U/L ALT 15 (7-52) U/L Alkaline Phosphatase 75 (34-104) U/L Total Protein 7.7 D (6.0-8.3) gm/dl Albumin 3.5 (3.4-5.0) gm/dl Globulin 4.2 H (2.5-4.0) gm/dl Albumin/Globulin Ratio 0.8 L (0.9-2) Stool Occult Bld Scrn (Negative) 02/14/23 Range/Units 18:35 WBC (4.8-10.8) K/ul RBC (4.70-6.10) M/uL Hgb (14.0-18.0) g/dl Hct (42.0-52.0) % MCV (80.0-100.0) fL MCH (25.0-34.0) pg MCHC (32.0-36.0) g/dL RDW Std Deviation (36.4-46.3) fL RDW Coeff of Howie (11.5-14.5) % Plt Count (130-400) K/uL MPV (9.4-12.4) fL PT (9.0-12.0) Seconds INR (0.9-1.1) Sodium (136-145) mmol/L Potassium (3.5-5.1) mmol/L Chloride (98-107) mmol/L Carbon Dioxide (21-32) mmol/L Anion Gap (3-11) BUN (6-23) mg/dl Creatinine (0.6-1.4) mg/dl Est Cr Clr Drug Dosing ml/min Est GFR ( Amer) ml/min Est GFR (Non-Af Amer) ml/min BUN/Creatinine Ratio (10-20) Glucose (70-99(Fasting)) mg/dl Calcium (8.6-10.3) mg/dl Magnesium (1.7-2.4) mg/dl Total Bilirubin (0.2-1.0) mg/dl AST (13-39) U/L ALT (7-52) U/L Alkaline Phosphatase (34-104) U/L Total Protein (6.0-8.3) gm/dl Albumin (3.4-5.0) gm/dl Globulin (2.5-4.0) gm/dl Albumin/Globulin Ratio (0.9-2) Stool Occult Bld Scrn Negative (Negative) PG Care Time/CCT Total # of Minutes Spent Total Time Spent with Patient: Total time spent is greater than 50% in coordination of care (as documented) at patient's floor/unit and/or counseling patient: Coding Level of Care Code 24699 SUB INP/OBS CARE 3/50MIN Diagnoses Volume overload E87.70 Acute kidney injury superimposed on CKD N17.9; N18.9 Anemia D64.9 Anemia type: unspecified type Cirrhosis K74.60 Hyponatremia E87.1 S/P ablation of atrial fibrillation Z98.890; Z86.79 CML (chronic myelocytic leukemia) C92.10 Hypothyroidism E03.9 Hypertension I10 GERD (gastroesophageal reflux disease) K21.9 Vitamin D deficiency E55.9 Folate deficiency E53.8 (3) Anemia Anemia type: unspecified type Qualified Code(s): D64.9 - Anemia, unspecified
[2023-02-15] MEDS: METOPROLOL SUCC 50MG EXT REL TAB PO SCH (09:31)
[2023-02-15] MEDS: AMMONIUM LACTATE 12% LOTION 225 GM BTL EXT SCH (09:31)
[2023-02-15] MEDS: BUMETANIDE 4 MG in SYRINGE 0 ML IV SCH (09:31)
[2023-02-15] MEDS: MAGNESIUM OXIDE 400 MG TAB PO SCH ×2 (09:31→20:29)
[2023-02-15] MEDS: CHOLECALCIFEROL 1,000 UNITS 25 MCG TAB PO SCH (09:32)
[2023-02-15] MEDS: FAMOTIDINE 20 MG TAB PO SCH (09:32)
[2023-02-15] MEDS: SPIRONOLACTONE 100 MG TAB PO SCH (09:32)
[2023-02-15] MEDS: FOLIC ACID 1 MG TAB PO SCH (09:32)
[2023-02-15] MEDS: IRON SUCROSE 300 MG in SODIUM CHLORIDE 0.9% 250 ML IV SCH (10:12)
[2023-02-15] MEDS: allopurinoL 300 MG TAB PO SCH (12:22)
--- NOTE | 2023-02-15 13:05 | Nephrology Progress Note ---
Date of Service February 15, 2023 Assessment & Plan (1) Acute kidney injury superimposed on CKD: (2) Anemia: (3) Bilateral edema of lower extremity: (4) Hyponatremia: (5) Hypertension: Plan 67 year old male the history of stage III A CKD baseline creatinine around 1.5- 1.6 in the setting of high-dose diuretic use for chronic lower extremity lymphedema and prior history of repeated episodes of ANNA. No significant proteinuria hematuria. Prior renal imaging was otherwise unremarkable. 2D echo previously showed EF 60-65% with moderate LVH with history of hypertension. Recently was admitted to the hospital with lower extremity cellulitis and had ANNA and diuretics was on hold with decent urine output. On discharge he was started back on Bumex 1 mg daily but as an outpatient lab showed kidney function worsening as well as worsening lower extremity edema and volume overload prompting readmission on 02/13/2023. On admission creatinine was 2.3, his baseline weight around 270-275 lb but on admission his weight was 309 lb. Restarted on higher dose of Bumex 40 mg IV twice a day. Since admission he was 4 L negative but rapid worsening of kidney function noted with creatinine up to 3.3 this morning, electrolyte acceptable. --he does not have underlying intrinsic renal disease, worsening renal function most likely secondary to intravascular volume depletion and hemodynamic ANNA in the setting of high dose of diuretics. Unfortunately with his chronic significant bilateral lower extremity edema, he will eventually have to be on high-dose diuretics as every time we try to lower his diuretics does, lower extremity edema worsened with significant weight gain. although he does have a component of diastolic dysfunction, I do not believe heart failure is significant contributing factor for his worsening renal function. -- will hold Bumex today and monitor urine output while off of diuretics. If urine output drops, will have to resume diuretics. In that case eventually we may have to consider ultrafiltration to improve his volume status. -- check renal function and electrolyte tomorrow. will follow. Admission and Anticipated Discharge Date Admission Date: February 12, 2023 Imelda Luciano was seen and evaluated this morning. Overall he feels well, denies any shortness of breath or chest pain. intake and output record showed he has 1.1 L negative overnight and overall more than 4 L negative although he is discouraged that he did not lose much weight. significant worsening of kidney function today, creatinine up to 3.3, other electrolytes seems acceptable. Has been on Bumex 4 mg IV twice a day. Review of Systems Review of Systems: detailed review of system was otherwise unremarkable. Physical Exam Constitutional: WD/WN, vitals as above no acute distress Eyes: + anicteric sclerae Neck: normal visual inspection Respiratory: Auscultation: lungs clear to auscultation bilaterally Cardiovascular: Rate/Rhythm: regular rate and regular rhythm Heart Sounds: normal S1 and normal S2 Extremities: + edema (chronic b/l lymphedema) Skin: + crusts thickened skin b/l le with lymphedema, wrapped in dressing Neurologic: no focal motor deficits Psychiatric: Orientation: alert and oriented x 3 Affect: euthymic affect Results & Data Vital Signs (Past 12 Hours) Vital Signs Temp Pulse Resp BP Pulse Ox O2 Del Method 02/15/23 10:22 Room Air 02/15/23 10:10 36.4 C L 73 18 110/57 L 98 Room Air 02/15/23 07:50 36.6 C 69 14 111/55 L 98 Room Air PG Care Time/CCT Total # of Minutes Spent Total Time Spent with Patient: Total time spent is greater than 50% in coordination of care (as documented) at patient's floor/unit and/or counseling patient: Coding Level of Care Code 27373 SUB INP/OBS CARE 3/50MIN Diagnoses Acute kidney injury superimposed on CKD N17.9; N18.9 Anemia D64.9 Anemia type: unspecified type Bilateral edema of lower extremity R60.0 Hyponatremia E87.1 Hypertension I10 (2) Anemia Anemia type: unspecified type Qualified Code(s): D64.9 - Anemia, unspecified
--- NOTE | 2023-02-15 14:26 | Gastrointestinal Consultation ---
Date of Consultation February 15, 2023 Assessment & Plan (1) Cirrhosis: 67 y/o M with new findings of cirrhosis on imaging c/b small ascites. I suspect this is likely [place] related given metabolic syndrome risk factors and he was told he had a fatty liver on imaging per patient for 10 years. He has significant volume overload and ANNA on CKD. Diuretics are being managed by nephrology which have been held today given worsening ANNA and considering ultrafiltration if needed. MELD-Na today is 31. Can complete serological work up while inpatient including acute hepatitis panel, Hep A total, Hep B surface Ab, smooth muscle antibody, anti-mitochondrial antibody, ceruloplasmin, iron studies including ferritin and transferrin saturation, SPEP. He will need HCC screening with abdominal US and AFP every 6 months as outpatient and eventual EGD for variceal screening. He will need outpatient follow up with hepatology as well. Complete abstinence from all alcohol moving forward. Will defer diuretic management to nephrology given worsening ANNA. He does not have enough ascites on imaging for paracentesis and most is abdominal wall edema. Daily MELD labs. Jennifer Luna DO Gastroenterology and Hepatology History of Present Illness Reason for Consultation: new cirrhosis on imaging Attending Physician: Jose Reyna MD History of Present Illness 67 y/o M with significant PMH of CKD III, heart failure, HTN, obesity, chronic LE lymphedema, who was admitted with worsening volume overload, ANNA on CKD and GI was consulted for new findings of cirrhosis on imaging. Patient reports he was told that he has had fatty liver on imaging for the past 10 years but was never told he had cirrhosis before. He reports he drinks 3-4 beers weekly but no heavy alcohol use and no history of drug use. No family history of liver disease or cirrhosis. Nephrology has been following and managing diuretics for worsening ANNA and considering potential ultrafiltration to improve his volume status. Allergies Allergy/AdvReac Type Severity Reaction Status Date / Time bee venom protein (honey bee) Allergy Severe DYSPNEA;SWE Verified 02/06/23 13:15 LLING latex Allergy Intermediate Rash Verified 02/06/23 13:15 Penicillins Allergy Unknown HAPPENED Verified 02/06/23 13:15 A CHILD Home Medications Medication Instructions Recorded Confirmed Type epinephrine 0.3 mg/0.3 mL 0.3 mg (0.3 mL) IM Q10M PRN 08/06/21 02/12/23 Rx injection, auto-injector (EpiPen anaphylaxis #2 ea 2-Sb) tadalafil 20 mg tablet 20 mg PO DAILY PRN Erectile 08/06/21 02/12/23 History Dysfunction triamcinolone acetonide 0.1 % 1 applic topical DAILY PRN Skin 02/08/22 02/12/23 Rx topical ointment Irritation #80 grams metoprolol succinate 100 mg 50 mg PO QAM 04/24/22 02/12/23 History tablet,extended release 24 hr levothyroxine 137 mcg tablet 137 mcg PO QPM 09/02/22 02/12/23 History menthol 0.44 %-zinc oxide 20.6 % 1 applic EXT DIRECTED 09/17/22 02/12/23 History topical ointment (Calmoseptine) spironolactone 100 mg tablet 100 mg PO QAM #90 tabs 10/31/22 02/12/23 Rx allopurinol 300 mg tablet 300 mg PO QDL 01/07/23 02/12/23 History mesalamine 0.375 gram 1.5 g PO QDL 01/07/23 02/12/23 History capsule,extended release 24 hr magnesium oxide 400 mg (241.3 mg 400 mg PO BID #60 tabs 01/28/23 02/12/23 Rx magnesium) tablet bumetanide 2 mg tablet 2 mg PO DAILY 02/06/23 02/12/23 History Patient History Medical History Acute kidney injury Anemia Atrial flutter 10/02/2020: Ablation of typical right atrial isthmus dependent flutter. 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 Ulcerative colitis Venous ulcer of left leg Venous ulcers of both lower extremities Vitamin D deficiency Surgical History H/O hernia repair (12/04/12) H/O laparoscopy H/O left knee surgery H/O lymph node excision 36 total H/O right hemicolectomy 36 lymph nodes removed as well History of appendectomy History of colonoscopy History of esophagogastroduodenoscopy (EGD) History of removal of Port-a-Cath History of tooth extraction Status post ablation of atrial flutter (12/04/12) 2020 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) Family History Grandmother (Paternal) Colorectal cancer Father Myocardial infarction Prostate cancer Denies family history of Ovarian cancer Dementia Breast cancer Social History Smoking Status: Never smoker Second Hand Exposure: No; Hx Alcohol Use: Yes Alcohol type: beer Hx Substance Use: No Preferred Language: Kazakh Communication Ability: Effective Visual Impairment: Limited Hearing Ability: Normal Marble Installation Helper Required: No Beliefs That Will Affect Care: Denominational marital status: Current Living Situation: Spouse Current Living Situation Comment: Lives with who has her own healthcare issues 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 How many Children do You have: 2 Other Information That Helps Us Care for You: No Feels Safe at Home: Yes Safety Concerns: Feels Safe At This Time Childhood Exposure to Second-Hand Smoke: No Diet Comment: 2000 cc fluid restriction during the past year weight has: increased > 10 lbs Dental Care, Regularly: Yes Physical Activity Frequency: Daily Seatbelt Use: always Sunscreen Use: Yes Assistive Devices: Cane Review of Systems Review of Systems: All systems reviewed & are unremarkable except as noted in HPI & below Physical Exam Constitutional: WD/WN, vitals as above Respiratory: normal respiratory effort, lungs clear to auscultation Cardiovascular: RRR, no murmur, no edema Gastrointestinal (Abdomen): obese, distended, non-tender, he has abdominal wall pitting edema but not much ascites is appreciated with absence of a fluid wave though it is difficult to interpret with his body habitus Skin: b/l LE erythema Lymphatic: 4+ LE pitting edema to the thighs. Vela in place. Results & Data Vital Signs (Past 12 Hours) Vital Signs Temp Pulse Resp BP Pulse Ox O2 Del Method 02/15/23 10:22 Room Air 02/15/23 10:10 36.4 C L 73 18 110/57 L 98 Room Air 02/15/23 07:50 36.6 C 69 14 111/55 L 98 Room Air
[2023-02-15] MEDS ORDERED: LEVOTHYROXINE SODIUM 150 MCG TABLET PO SCH (21:00)
[2023-02-16] MEDS: LEVOTHYROXINE SODIUM 137 MCG TABLET PO SCH (05:32)
[2023-02-16] MEDS: HEPARIN SOD 5,000 UNIT/0.5 ML VIAL SQ SCH ×3 (05:32→21:48)
--- NOTE | 2023-02-16 07:58 | Hospitalist Progress Note ---
Date of Service February 16, 2023 Assessment & Plan (1) Volume overload: Plan: Has had significant volume overload/swelling/weight gain since discharge on 01/28, BNP elevated to 709 (highest it has ever been) Likely due to only taking bumex once daily but had been taking his spironolactone 100mg daily Patient has had very little daily urine output on daily Bumex dosing, was recommended for admission by Dr. iGraldo of Nephrology as she has been following outpatient 2mg IV bumex in the ED Continue Bumex 4 mg IV BID, spirnolactone 100mg daily Nephrology consulted Checking Renal UA for ANNA for further eval -- no obstruction. UA neg for blood/protein. Microscopy neg for casts Iron studies w/ iron 27%, ferriting 129 --> Venofer ordered by nephrology for his anemia 3/4 doses ECHO to eval worsening EF --> EF not reduced (of note, did have trop in 50s last admit, not repeated) ECHO w/o wma Report: LV systolic function normal.EF 60-65%. LA mod dilated, mild valvular aortic stenosis, mild mitral regurgitation. RVSP elevated at 40-50mmHg. IVC mildly dilated. Monitor daily weights/I&O, -Net negative -2.5L on 02/14, was -3.7L on 02/15 but currently -3.3L w/ soto for accurrate I&O however weight down, doesn't make sense (confirmed weights w/ standing scale weight) Messaged Nephrology regarding Cr worsened to 4 w/ holding diuretics on 02/15 w/ Cr up to 3 & consideration for metolazaone given patient resistance but defer to nephro for management given worsening renal function --> Dr Giraldo has resumed Mr Fox bumex IV BID and dose EPO ordered and consideration for ultrafiltration to help w/ assistance if continues to decline was discussed w/ on phone today by them. Continue low Na/AHA diet Monitor labs on repeat *Did check procal , 0.51 (much improved from prior 9.2 earlier in month and completed course IV Zosyn for LE cellulitis). No WBC elevation/fevers, did add blood cultures and will monitor given possible contaminent last admit (and hasn't been on abx current admit) (2) Acute kidney injury superimposed on CKD: Plan: Cr 3.07 on admit, 2nd to volume overload/anemia/vit d def/etc Renal US ordered for further eval, poor imaging given body habitus, no obstructions noted ?cardio vs hepatorenal Iron panel checked -- venofer ordered by nephrology, daily (day 4) repleting folate, vit D given prior deficiency Avoid nephrotoxins/renal dose meds as possible Nephrology consulted Cr 2.91, improved to 2.27 initially but worsened to 3.34 on 02/15 and per nephro diuretics placed on hold Cr WORSENED to 4 today, nephrology resuming bumex/ordered EPO as above Monitor renal function in AM (3) Anemia: Plan: chronic, hx CML following w/ CCP Checked iron panel, venofer as above by nephrology day 01/25 B12 wnl, Folate low prior and continues on supplementation (improved from last month, not on home med list but pt states had been taking) Fecal occult NEGATIVE Monitor (4) Cirrhosis: Plan: Has a knwon history , denies ETOH Total bili 2.9, down from 6.7 as of 01/22, INR at 1.4 (down from 1.7 as of 01/22/23) on admit Tb 3.8, AST 40 Liver US w/ small amt ascites --> not having abdominal pain Continue increased dose bumex 4mg IV BID ( ?switching to torsemide), spironolactone 100mg daily --> bumex on hold as above Low Na diet encouraged -- see above regarding issues w/ meals at home GI consulted -- outpt f/u recs. Will add serological workup to AM labs in meantime while awaiting outpt f/u Monitor LFTs, avoid all alcohol (5) Hyponatremia: Plan: Sodium noted to be 129 with a glucose of 147 on admission Na improved 136 on AM labs w/ diuresis but again low 131 on AM labs and ? if 2nd to overdiuresis -- unchanged w/ holding further diuretics TSH minimal elevation w/ normal T4/free t3 CHANGED TO BB BREAKFAST ORDERED QPM and ensure taking correctly at home Nephrology following, fluid restriction, diuretics as outlined Encouraged low Na diet/fluid restriction at home Monitor BMP (6) S/P ablation of atrial fibrillation: Plan: Stable No currently on anticoagulation -- EKG on admit NSR, L anterior fascicular block, RBBB Continue metoprolol (7) CML (chronic myelocytic leukemia): Plan: Follows [facility], they are currently monitoring consider reaching out friday if needed (8) Hypothyroidism: Plan: Continue levothyroxine TSH slight elevation 4.554, but Ft4/ft3 wnl and continue current dose but changed to AM and rec complaince w/ proper admin to patient as outpatient (9) Hypertension: Plan: Stable Continue metoprolol w. hold parameters On spironolactone -- continued, bumex resumed by nephro (10) GERD (gastroesophageal reflux disease): Plan: Daily famotidine while admitted no sx reported currently (11) Vitamin D deficiency: Plan: replacement ordered, continue at d/c (12) Folate deficiency: Plan: prior low dec 2022, repeat ordered and replacement Lymphedema -- Wound RN consulted -- Seen w/ wound RN -- amlactin ordered NON TENDER/NO LEUKOCYTOSIS or fever Monitor for any infection, just completed course Zosyn for LE cellulitis Blood cultures added as above, monitor ?CM to see about low Na meals on wheels given discussion w/ patient and caring for his since last summer w/ back infection and eating out/prepared meals and he does endorse he has not really being taking care of himself -- info for MOMs/low Na meals, vouchers for farmers market provided Plan continued inpatient stay worsening renal function, nephrology following -- may need to consider ultrafiltration for assistance Admission and Anticipated Discharge Date Admission Date: February 12, 2023 Supervising Physician Co-Signing Physician Notes The patient was not seen by me. The chart was reviewed. Case discussed with SHERRON Clark. Agree with assessment and plan Subjective eval this morning , sitting up in recliner. No SOB, and reports last 4-5lb believes goes to lungs but not currently having issue with that. No fever/chills, no chest pain or abdominal pain. Soto draining yellow urine, decreased output. Seen by nephrology and resuming bumex and getting EPO. He states he has not gotten bumex yet today. No lightheadedness/dizziness, palpitations reported. Discussed low threshold to move to tele if he has any of thos symptoms. He voiced issues w/ alterations in diet/limitations -- will check to confirm. Questions/concerns addressed. Physical Exam Physical Exam: General: WD obese male sitting up in recliner with hat on, NAD HEENT; head normocephalic, eyes anicteric, trachea midline Resp: CTA, diminished in bases, on room air CV: RRR, +systolic murmur, +LE edema/lymphedema + crusting, wrapped GI: obese, tympanic, DISTENDED but NONTENDER, no guarding/rebound : soto draining yellow urine MSK/Neuro: no focal deficit Psych: AOx3, cooperative but grumpy today Skin: b/l LE lymphedema, some serous drainage, cracking of skin but no obvious open/draining lesions, thickened skin c/w lymphedema Results & Data Results & Data Vital Signs (Past 12 Hours) Vital Signs Temp Pulse Resp BP Pulse Ox O2 Del Method 02/15/23 23:14 Room Air 02/15/23 21:09 36.4 C L 69 18 105/54 L 95 Room Air Laboratory Results 02/16/23 02/16/23 02/16/23 Range/Units 08:05 08:05 08:05 WBC 9.29 (4.8-10.8) K/ul RBC 2.52 L (4.70-6.10) M/uL Hgb 8.8 L (14.0-18.0) g/dl Hct 26.1 L (42.0-52.0) % MCV 103.6 H (80.0-100.0) fL MCH 34.9 H (25.0-34.0) pg MCHC 33.7 (32.0-36.0) g/dL RDW Std Deviation 61.6 H (36.4-46.3) fL RDW Coeff of Howie 16.1 H (11.5-14.5) % Plt Count 125 L (130-400) K/uL MPV 10.1 (9.4-12.4) fL Immature Gran % (Auto) 1.1 % Neut % (Auto) 62.3 % Lymph % (Auto) 18.2 % [place] % (Auto) 10.8 % Eos % (Auto) 6.7 % Baso % (Auto) 0.9 % Neut # (Auto) 5.80 (1.40-6.50) K/uL Lymph # (Auto) 1.69 (1.2-3.4) K/uL [place] # (Auto) 1.00 H (0.11-0.59) K/uL Eos # (Auto) 0.62 H (0-0.50) K/uL Baso # (Auto) 0.08 (0-0.2) K/uL Immature Gran # (Auto) 0.10 (0.01-0.20) K/uL PT 15.1 H (9.0-12.0) Seconds INR 1.4 H (0.9-1.1) Sodium (136-145) mmol/L Potassium (3.5-5.1) mmol/L Chloride (98-107) mmol/L Carbon Dioxide (21-32) mmol/L Anion Gap (3-11) BUN (6-23) mg/dl Creatinine (0.6-1.4) mg/dl Est Cr Clr Drug Dosing ml/min Est GFR ( Amer) ml/min Est GFR (Non-Af Amer) ml/min BUN/Creatinine Ratio (10-20) Glucose (70-99(Fasting)) mg/dl Calcium (8.6-10.3) mg/dl Phosphorus (2.5-4.9) mg/dl Magnesium (1.7-2.4) mg/dl Total Bilirubin (0.2-1.0) mg/dl Direct Bilirubin (0-0.2) mg/dl AST (13-39) U/L ALT (7-52) U/L Alkaline Phosphatase (34-104) U/L Total Protein (6.0-8.3) gm/dl Albumin (3.4-5.0) gm/dl Procalcitonin (0-0.5) ng/ml Free T3 2.62 (2.3-4.2) pg/ml 02/16/23 02/15/23 Range/Units 08:05 14:30 WBC (4.8-10.8) K/ul RBC (4.70-6.10) M/uL Hgb (14.0-18.0) g/dl Hct (42.0-52.0) % MCV (80.0-100.0) fL MCH (25.0-34.0) pg MCHC (32.0-36.0) g/dL RDW Std Deviation (36.4-46.3) fL RDW Coeff of Howie (11.5-14.5) % Plt Count (130-400) K/uL MPV (9.4-12.4) fL Immature Gran % (Auto) % Neut % (Auto) % Lymph % (Auto) % [place] % (Auto) % Eos % (Auto) % Baso % (Auto) % Neut # (Auto) (1.40-6.50) K/uL Lymph # (Auto) (1.2-3.4) K/uL [place] # (Auto) (0.11-0.59) K/uL Eos # (Auto) (0-0.50) K/uL Baso # (Auto) (0-0.2) K/uL Immature Gran # (Auto) (0.01-0.20) K/uL PT (9.0-12.0) Seconds INR (0.9-1.1) Sodium 131 L (136-145) mmol/L Potassium 4.9 (3.5-5.1) mmol/L Chloride 94 L (98-107) mmol/L Carbon Dioxide 30 (21-32) mmol/L Anion Gap 7 (3-11) BUN 61 H (6-23) mg/dl Creatinine 4.03 H D (0.6-1.4) mg/dl Est Cr Clr Drug Dosing 25.2 ml/min Est GFR ( Amer) 16.9 ml/min Est GFR (Non-Af Amer) 14.6 ml/min BUN/Creatinine Ratio 15.1 (10-20) Glucose 109 H (70-99(Fasting)) mg/dl Calcium 9.5 (8.6-10.3) mg/dl Phosphorus 4.2 (2.5-4.9) mg/dl Magnesium 2.4 (1.7-2.4) mg/dl Total Bilirubin 3.8 H (0.2-1.0) mg/dl Direct Bilirubin 1.3 H (0-0.2) mg/dl AST 34 (13-39) U/L ALT 14 (7-52) U/L Alkaline Phosphatase 73 (34-104) U/L Total Protein 7.7 (6.0-8.3) gm/dl Albumin 3.4 (3.4-5.0) gm/dl Procalcitonin 0.51 H (0-0.5) ng/ml Free T3 (2.3-4.2) pg/ml PG Care Time/CCT Total # of Minutes Spent Total Time Spent with Patient: Total time spent is greater than 50% in coordination of care (as documented) at patient's floor/unit and/or counseling patient: Coding Level of Care Code 26965 SUB INP/OBS CARE 3/50MIN Diagnoses Volume overload E87.70 Acute kidney injury superimposed on CKD N17.9; N18.9 Anemia D64.9 Anemia type: unspecified type Cirrhosis K74.60 Hyponatremia E87.1 S/P ablation of atrial fibrillation Z98.890; Z86.79 CML (chronic myelocytic leukemia) C92.10 Hypothyroidism E03.9 Hypertension I10 GERD (gastroesophageal reflux disease) K21.9 Vitamin D deficiency E55.9 Folate deficiency E53.8 (3) Anemia Anemia type: unspecified type Qualified Code(s): D64.9 - Anemia, unspecified
[2023-02-16 08:48] LABS: Basophils # (auto) 0.08 K/uL (0-0.2); Basophils % (auto) 0.9 %; Eosinophils # (auto) 0.62 K/uL (0-0.50); Eosinophils % (auto) 6.7 %; Hematocrit (blood only) 26.1 % (42.0-52.0); Hemoglobin 8.8 g/dl (14.0-18.0); Immature Granulocytes % (auto) 1.1 %; Lymphocytes # (auto) 1.69 K/uL (1.2-3.4); Lymphocytes % (auto) 18.2 %; Mean Corpuscular Hemoglobin 34.9 pg (25.0-34.0); Mean Corpuscular Hgb Conc 33.7 g/dL (32.0-36.0); Mean Corpuscular Volume 103.6 fL (80.0-100.0); Mean Platelet Volume 10.1 fL (9.4-12.4); Monocytes % (auto) 10.8 %; Neutrophils % (auto) 62.3 %; Platelet Count 125 K/uL (130-400); RDW Coefficient of Variation 16.1 % (11.5-14.5); RDW Standard Deviation 61.6 fL (36.4-46.3); Red Blood Count 2.52 M/uL (4.70-6.10); White Blood Count 9.29 K/ul (4.8-10.8)
[2023-02-16 08:57] LABS: Albumin Level 3.4 gm/dl (3.4-5.0); BUN Creatinine Ratio 15.1 (10-20); Bilirubin Direct 1.3 mg/dl (0-0.2); Bilirubin,Total 3.8 mg/dl (0.2-1.0); Calcium 9.5 mg/dl (8.6-10.3); Creatinine Clr Calc Pharmacy 25.2 ml/min; Est GFR (African American) 16.9 ml/min; Est GFR (Non-African American) 14.6 ml/min; Magnesium 2.4 mg/dl (1.7-2.4); Phosphorus 4.2 mg/dl (2.5-4.9); Potassium 4.9 mmol/L (3.5-5.1); Total Protein 7.7 gm/dl (6.0-8.3)
[2023-02-16] MEDS: METOPROLOL SUCC 50MG EXT REL TAB PO SCH (09:05)
[2023-02-16] MEDS: FOLIC ACID 1 MG TAB PO SCH (09:05)
[2023-02-16] MEDS: SPIRONOLACTONE 100 MG TAB PO SCH (09:05)
[2023-02-16] MEDS: MAGNESIUM OXIDE 400 MG TAB PO SCH ×2 (09:06→21:47)
[2023-02-16] MEDS: AMMONIUM LACTATE 12% LOTION 225 GM BTL EXT SCH (09:06)
[2023-02-16] MEDS: FAMOTIDINE 20 MG TAB PO SCH (09:06)
[2023-02-16] MEDS: CHOLECALCIFEROL 1,000 UNITS 25 MCG TAB PO SCH (09:06)
[2023-02-16 09:15] LABS: INR 1.4 (0.9-1.1); Prothrombin Time 15.1 Seconds (9.0-12.0)
[2023-02-16] MEDS: IRON SUCROSE 300 MG in SODIUM CHLORIDE 0.9% 250 ML IV SCH (10:03)
[2023-02-16] MEDS ORDERED: EPOETIN ALFA 40,000 UNITS/ML VIAL SQ SCH (11:30)
[2023-02-16] MEDS ORDERED: BUMETANIDE 4 MG in SYRINGE 0 ML IV ONE (12:00)
--- NOTE | 2023-02-16 12:22 | Nephrology Progress Note ---
Date of Service February 16, 2023 Assessment & Plan (1) Acute kidney injury superimposed on CKD: (2) Anemia: (3) Bilateral edema of lower extremity: (4) Hyponatremia: (5) Hypertension: Plan 67 year old male the history of stage III A CKD baseline creatinine around 1.5- 1.6 in the setting of high-dose diuretic use for chronic lower extremity lymphedema and prior history of repeated episodes of ANNA. No significant proteinuria hematuria. Prior renal imaging was otherwise unremarkable. 2D echo previously showed EF 60-65% with moderate LVH with history of hypertension. Recently was admitted to the hospital with lower extremity cellulitis and had ANNA and diuretics was on hold with decent urine output. On discharge he was started back on Bumex 1 mg daily but as an outpatient lab showed kidney function worsening as well as worsening lower extremity edema and volume overload prompting readmission on 02/13/2023. On admission creatinine was 2.3, his baseline weight around 270-275 lb but on admission his weight was 309 lb. Restarted on higher dose of Bumex 40 mg IV twice a day. Since admission he was 4 L negative but rapid worsening of kidney function noted with creatinine up to 3.3 this morning, electrolyte acceptable. Progressive worsening of renal function despite holding diuretics, urine output dropped off of diuretic and continues to have significant lymphedema. most likely secondary to intravascular volume depletion. --resume Bumex , continue to monitor urine output, renal function and electrolytes closely. if renal function continues to worsen, eventually we may have to consider ultrafiltration to improve his volume status. Discussed in detail with mandeep and his over telephone, verbalized understanding. -- check renal function and electrolyte tomorrow. will follow. Admission and Anticipated Discharge Date Admission Date: February 12, 2023 Imelda Luciano was seen and evaluated this morning, his was on the phone during the visit. Overall he feels well, denies any shortness of breath or chest pain, However, urine output decrease significantly off of diuretics, last 24 hour urine output was only 650 mL although overall weight seems lower which does not make sense. Renal function continues to worsen despite being off of diuretics, blood pressure has been relatively stable. Review of Systems Review of Systems: detailed review of system was otherwise unremarkable. Physical Exam Constitutional: WD/WN, vitals as above no acute distress Eyes: + anicteric sclerae Neck: normal visual inspection Respiratory: Auscultation: lungs clear to auscultation bilaterally Cardiovascular: Rate/Rhythm: regular rate and regular rhythm Heart Sounds: normal S1 and normal S2 Extremities: + edema (chronic b/l lymphedema) Skin: + crusts Neurologic: no focal motor deficits Psychiatric: Orientation: alert and oriented x 3 Affect: euthymic affect Results & Data Vital Signs (Past 12 Hours) Vital Signs Temp Pulse Pulse Resp BP Pulse Ox O2 Del Method 02/16/23 10:55 36.5 C 64 16 119/63 97 Room Air 02/16/23 10:04 36.4 C L 70 20 117/61 95 Room Air 02/16/23 08:29 Room Air 02/16/23 08:09 36.5 C 66 14 131/63 96 Room Air PG Care Time/CCT Total # of Minutes Spent Total Time Spent with Patient: Total time spent is greater than 50% in coordination of care (as documented) at patient's floor/unit and/or counseling patient: Coding Level of Care Code 53217 SUB INP/OBS CARE 3/50MIN Diagnoses Acute kidney injury superimposed on CKD N17.9; N18.9 Anemia D64.9 Anemia type: unspecified type Bilateral edema of lower extremity R60.0 Hyponatremia E87.1 Hypertension I10 (2) Anemia Anemia type: unspecified type Qualified Code(s): D64.9 - Anemia, unspecified
[2023-02-16] MEDS: allopurinoL 300 MG TAB PO SCH (12:28)
[2023-02-16] MEDS: BUMETANIDE 4 MG in SYRINGE 0 ML IV SCH (17:22)
[2023-02-17] MEDS: LEVOTHYROXINE SODIUM 137 MCG TABLET PO SCH (05:38)
[2023-02-17] MEDS: HEPARIN SOD 5,000 UNIT/0.5 ML VIAL SQ SCH ×3 (06:20→19:44)
[2023-02-17 07:40] LABS: Basophils # (auto) 0.13 K/uL (0-0.2); Basophils % (auto) 1.3 %; Eosinophils # (auto) 0.72 K/uL (0-0.50); Eosinophils % (auto) 7.2 %; Hematocrit (blood only) 26.6 % (42.0-52.0); Hemoglobin 8.8 g/dl (14.0-18.0); Lymphocytes # (auto) 1.69 K/uL (1.2-3.4); Lymphocytes % (auto) 16.8 %; Mean Corpuscular Hemoglobin 34.5 pg (25.0-34.0); Mean Corpuscular Hgb Conc 33.1 g/dL (32.0-36.0); Mean Corpuscular Volume 104.3 fL (80.0-100.0); Mean Platelet Volume 9.9 fL (9.4-12.4); Monocytes # (auto) 1.08 K/uL (0.11-0.59); Monocytes % (auto) 10.8 %; Neutrophils # (auto) 6.32 K/uL (1.40-6.50); Neutrophils % (auto) 62.9 %; Platelet Count 127 K/uL (130-400); RDW Coefficient of Variation 16.4 % (11.5-14.5); RDW Standard Deviation 62.5 fL (36.4-46.3); Red Blood Count 2.55 M/uL (4.70-6.10); White Blood Count 10.04 K/ul (4.8-10.8)
[2023-02-17 08:02] LABS: INR 1.4 (0.9-1.1); Prothrombin Time 14.7 Seconds (9.0-12.0)
[2023-02-17 08:19] LABS: Albumin Level 3.6 gm/dl (3.4-5.0); BUN Creatinine Ratio 13.1 (10-20); Bilirubin Direct 1.2 mg/dl (0-0.2); Bilirubin,Total 3.7 mg/dl (0.2-1.0); Calcium 9.6 mg/dl (8.6-10.3); Creatinine Clr Calc Pharmacy 21.5 ml/min; Phosphorus 4.4 mg/dl (2.5-4.9)
[2023-02-17] MEDS: SPIRONOLACTONE 100 MG TAB PO SCH (09:12)
[2023-02-17] MEDS: FOLIC ACID 1 MG TAB PO SCH (09:13)
[2023-02-17] MEDS: metOLazone 5 MG TABLET PO SCH ×2 (09:13→09:50)
[2023-02-17] MEDS: METOPROLOL SUCC 50MG EXT REL TAB PO SCH (09:13)
[2023-02-17] MEDS: MAGNESIUM OXIDE 400 MG TAB PO SCH ×2 (09:13→20:24)
[2023-02-17] MEDS: FAMOTIDINE 20 MG TAB PO SCH (09:13)
[2023-02-17] MEDS: AMMONIUM LACTATE 12% LOTION 225 GM BTL EXT SCH (09:14)
[2023-02-17] MEDS: CHOLECALCIFEROL 1,000 UNITS 25 MCG TAB PO SCH (09:14)
[2023-02-17] MEDS: BUMETANIDE 4 MG in SYRINGE 0 ML IV SCH ×2 (09:50→17:25)
--- NOTE | 2023-02-17 12:16 | Gastroenterology Progress Note ---
Date of Service February 17, 2023 Assessment & Plan (1) Cirrhosis: Plan -Na-MELD remains 31 today. -Diuretic management per nephrology. -Outpatient GI follow up for ongoing medical management of cirrhosis as per Dr. Luna's recommendations. -Rest per primary team. Admission and Anticipated Discharge Date Admission Date: February 12, 2023 Subjective Patient without any acute issues this morning. Plan for lower extremity wound care by nursing staff this morning. H&H is stable. No overt GIB. Denies any abdominal pain or n/v. TB has appeared to peak and is trending downward and was 3.7 today. Na-MELD 31 yesterday. Review of Systems Constitutional: + fatigue; no fever and no chills Gastrointestinal: as per Subjective / HPI Musculoskeletal: + swelling Physical Exam Constitutional: WD/WN, vitals as above Eyes: EOM intact bilaterally Respiratory: normal respiratory effort, lungs clear to auscultation Cardiovascular: Rate/Rhythm: regular rate and regular rhythm Heart Sounds: + murmur Gastrointestinal (Abdomen): Inspection/Auscultation: normal bowel sounds and + significant pannus Percussion/Palpation: abdomen soft; abdomen nontender Musculoskeletal: Extremities: + lower leg abnormality Bilateral (edema and dressings with sanguineous drainage noted.) Psychiatric: A+Ox3, euthymic affect Results & Data Results & Data Vital Signs (Past 12 Hours) Vital Signs Temp Pulse Resp BP Pulse Ox O2 Del Method 02/17/23 07:56 36.4 C L 85 18 130/68 98 Room Air Diagnostic Findings Laboratory Results WBC 10.04 K/ul (4.8-10.8) 02/17/23 07:19 RBC 2.55 M/uL (4.70-6.10) L 02/17/23 07:19 Hgb 8.8 g/dl (14.0-18.0) L 02/17/23 07:19 Hct 26.6 % (42.0-52.0) L 02/17/23 07:19 MCV 104.3 fL (80.0-100.0) H 02/17/23 07:19 MCH 34.5 pg (25.0-34.0) H 02/17/23 07:19 MCHC 33.1 g/dL (32.0-36.0) 02/17/23 07:19 RDW Std Deviation 62.5 fL (36.4-46.3) H 02/17/23 07:19 RDW Coeff of Howie 16.4 % (11.5-14.5) H 02/17/23 07:19 Plt Count 127 K/uL (130-400) L 02/17/23 07:19 MPV 9.9 fL (9.4-12.4) 02/17/23 07:19 Immature Gran % (Auto) 1.0 % 02/17/23 07:19 Neut % (Auto) 62.9 % 02/17/23 07:19 Lymph % (Auto) 16.8 % 02/17/23 07:19 [place] % (Auto) 10.8 % 02/17/23 07:19 Eos % (Auto) 7.2 % 02/17/23 07:19 Baso % (Auto) 1.3 % 02/17/23 07:19 Neut # (Auto) 6.32 K/uL (1.40-6.50) 02/17/23 07:19 Lymph # (Auto) 1.69 K/uL (1.2-3.4) 02/17/23 07:19 [place] # (Auto) 1.08 K/uL (0.11-0.59) H 02/17/23 07:19 Eos # (Auto) 0.72 K/uL (0-0.50) H 02/17/23 07:19 Baso # (Auto) 0.13 K/uL (0-0.2) 02/17/23 07:19 Immature Gran # (Auto) 0.10 K/uL (0.01-0.20) 02/17/23 07:19 PT 14.7 Seconds (9.0-12.0) H 02/17/23 07:19 INR 1.4 (0.9-1.1) H 02/17/23 07:19 APTT 31.1 Seconds (21.0-31.0) H 02/12/23 14:10 PTT Ratio 1.1 02/12/23 14:10 Sodium 131 mmol/L (136-145) L 02/17/23 07:19 Potassium 5.0 mmol/L (3.5-5.1) 02/17/23 07:19 Chloride 95 mmol/L (98-107) L 02/17/23 07:19 Carbon Dioxide 28 mmol/L (21-32) 02/17/23 07:19 Anion Gap 8 (3-11) 02/17/23 07:19 BUN 62 mg/dl (6-23) H 02/17/23 07:19 Creatinine 4.72 mg/dl (0.6-1.4) H* D 02/17/23 07:19 Est Cr Clr Drug Dosing 21.5 ml/min 02/17/23 07:19 Est GFR ( Amer) 14.0 ml/min 02/17/23 07:19 Est GFR (Non-Af Amer) 12.0 ml/min 02/17/23 07:19 BUN/Creatinine Ratio 13.1 (10-20) 02/17/23 07:19 Glucose 113 mg/dl (70-99(Fasting)) H 02/17/23 07:19 Osmolality 305 mOsm/kg (280-300) H 02/12/23 14:11 Calcium 9.6 mg/dl (8.6-10.3) 02/17/23 07:19 Phosphorus 4.4 mg/dl (2.5-4.9) 02/17/23 07:19 Magnesium 2.4 mg/dl (1.7-2.4) 02/16/23 08:05 Iron 73 mcg/dl (35-175) 02/13/23 07:11 Iron Cancelled 02/13/23 07:11 TIBC 272 mcg/dl (250-450) 02/13/23 07:11 TIBC Cancelled 02/13/23 07:11 Unsaturated IBC 199 mcg/dl (155-355) 02/13/23 07:11 Unsaturated IBC Cancelled 02/13/23 07:11 Transferrin % Sat 27 % (20-50) 02/13/23 07:11 Transferrin % Sat Cancelled 02/13/23 07:11 Ferritin 128.7 ng/ml (8-388) 02/13/23 07:11 Ferritin Cancelled 02/13/23 07:11 Total Bilirubin 3.7 mg/dl (0.2-1.0) H 02/17/23 07:19 Direct Bilirubin 1.2 mg/dl (0-0.2) H 02/17/23 07:19 AST 34 U/L (13-39) 02/17/23 07:19 ALT 15 U/L (7-52) 02/17/23 07:19 Alkaline Phosphatase 74 U/L (34-104) 02/17/23 07:19 Troponin I High Sens 10.6 pg/ml (0-20) 02/12/23 13:08 B-Natriuretic Peptide 709 pg/ml (0-100) H 02/12/23 14:11 Total Protein 8.0 gm/dl (6.0-8.3) 02/17/23 07:19 Albumin 3.6 gm/dl (3.4-5.0) 02/17/23 07:19 Globulin 4.2 gm/dl (2.5-4.0) H 02/15/23 07:00 Albumin/Globulin Ratio 0.8 (0.9-2) L 02/15/23 07:00 25-OH Vitamin D Total 25.6 ng/ml (30-100) L 02/13/23 09:04 Folate 8.74 ng/ml (>5.38) 02/13/23 09:04 Procalcitonin 0.51 ng/ml (0-0.5) H 02/15/23 14:30 TSH 4.554 uIu/ml (0.300-4.500) H 02/13/23 09:04 Free T4 1.18 ng/dl (0.61-1.60) 02/13/23 09:04 Free T3 2.62 pg/ml (2.3-4.2) 02/16/23 08:05 Urine Color Yellow 02/12/23 20:53 Urine Appearance Clear (Clear) 02/12/23 20:53 Urine pH 5.0 (4.5-7.5) 02/12/23 20:53 Ur Specific [place] 1.010 (1.000-1.030) 02/12/23 20:53 Urine Protein Negative (Negative) 02/12/23 20:53 Urine Glucose (UA) Negative (Negative) 02/12/23 20:53 Urine Ketones Negative (Negative) 02/12/23 20:53 Urine Blood Negative (Negative) 02/12/23 20:53 Urine Nitrite Negative (Negative) 02/12/23 20:53 Urine Bilirubin Negative (Negative) 02/12/23 20:53 Urine Urobilinogen Negative (Negative) 02/12/23 20:53 Ur Leukocyte Esterase Trace (Negative) H 02/12/23 20:53 Urine WBC (Auto) 1-5 /hpf (0-5) 02/12/23 20:53 Urine RBC (Auto) 0-4 /hpf (0-4) 02/12/23 20:53 U Hyaline Cast (Auto) 10-30 /lpf (0-5) H 02/12/23 20:53 U Epithel Cells (Auto) 20-30 /lpf (0-5) H 02/12/23 20:53 Urine Bacteria (Auto) Negative (Negative) 02/12/23 20:53 Urine Osmolality 295 mOsm/kg (500-800) L 02/12/23 20:53 Ur Random Sodium 70 mmol/L 02/12/23 20:53 Stool Occult Bld Scrn Negative (Negative) 02/14/23 18:35 SARS-CoV-2, RNA, NAAT NEGATIVE (NEGATIVE) 02/12/23 15:39 Impressions Chest X-Ray 02/12/23 11:42 XR chest 1V not portable CLINICAL HISTORY: Chest pain, nonspecific TECHNIQUE: Single frontal radiograph of the chest was obtained. Comparison: Comparison is made to chest radiograph 01/23/2020 FINDINGS: No lines and tubes are seen. Cardiomegaly is noted. Faint bibasilar airspace opacities are seen. Pulmonary vascular congestion is somewhat improved from prior exam. No evidence of pleural effusion or pneumothorax. IMPRESSION: 1. Faint bibasilar airspace opacities which may represent atelectasis, pneumonia, and/or aspiration. 2. Cardiomegaly and mild pulmonary vascular congestion. ACT 112: Negative or not required by law. Electronically signed by: Hector Rosales M.D. 02/12/2023 12:32 PM Liver Ultrasound 02/12/23 16:48 Exam(s): US LIVER EXAM: US Abdomen Limited CLINICAL HISTORY: Reason for exam: volume overload, hx of cirrhosis. TECHNIQUE: Real-time ultrasound of the abdomen with image documentation. COMPARISON: CT abdomen and pelvis 04/04/2022. FINDINGS: Liver: Hepatomegaly. Cirrhotic morphology of the liver. Liver measures up to the 18.9 cm. Gallbladder: Gallbladder is contracted. Common bile duct measures 4 mm. Pancreas: Pancreas is obscured by bowel gas. Kidneys: Right kidney measures up to 11.9 cm in long axis. Free fluid: Ascites is present. IMPRESSION: Cirrhotic morphology of the liver with ascites. Consider evaluation with MRI as clinically warranted. Electronically signed by: Demetrius Merida MD 02/12/23 22:53 PM Abdomen Ultrasound 02/12/23 17:37 Exam(s): US ABDOMEN LIMITED EXAM: US Abdomen Limited CLINICAL HISTORY: Reason for exam: renal and liver dysfunction, distended abd. TECHNIQUE: Real-time ultrasound of the abdomen with image documentation. COMPARISON: CT abdomen pelvis 04/04/2022. FINDINGS: Free fluid: Small amount of ascites which appears most significant in the left lower quadrant. IMPRESSION: Small amount of ascites which appears most significant in the left lower quadrant. Electronically signed by: Demetruis Merida MD 02/12/23 22:54 PM Renal Ultrasound 02/13/23 12:31 RENAL ULTRASOUND HISTORY: Acute kidney injury. COMPARISON: Abdominal ultrasound 02/12/2023. Abdomen and pelvis CT 04/04/2022. FINDINGS: Suboptimal evaluation of the kidneys due to the patient's body habitus. Right kidney: 11.7 cm. No hydronephrosis. Normal corticomedullary differentiation and cortical thickness. Left kidney: 11.2 cm. No hydronephrosis. Normal corticomedullary differentiation and cortical thickness. Bladder: Decompressed by the Vela catheter and not well visualized. IMPRESSION: Suboptimal evaluation of the kidneys/bladder due to the patient's body habitus. No hydronephrosis. ACT 112: Negative or not required by law. Electronically signed by: Mario Campbell M.D. 02/13/2023 1:49 PM PG Care Time/CCT Total # of Minutes Spent Total Time Spent with Patient: Total time spent is greater than 50% in coordination of care (as documented) at patient's floor/unit and/or counseling patient: Coding Level of Care Code 66884 SUB INP/OBS CARE 3/50MIN Diagnoses Cirrhosis K74.60
[2023-02-17] MEDS: allopurinoL 300 MG TAB PO SCH (13:06)
--- NOTE | 2023-02-17 15:08 | Nephrology Progress Note ---
Date of Service February 17, 2023 Assessment & Plan (1) Acute kidney injury superimposed on CKD: (2) Anemia: (3) Bilateral edema of lower extremity: (4) Hyponatremia: (5) Hypertension: Plan 67 year old male the history of stage III A CKD baseline creatinine around 1.5- 1.6 in the setting of high-dose diuretic use for chronic lower extremity lymphedema and prior history of repeated episodes of ANNA. No significant proteinuria hematuria. Prior renal imaging was otherwise unremarkable. 2D echo previously showed EF 60-65% with moderate LVH with history of hypertension. Recently was admitted to the hospital with lower extremity cellulitis and had ANNA and diuretics was on hold with decent urine output. On discharge he was started back on Bumex 1 mg daily but as an outpatient lab showed kidney function worsening as well as worsening lower extremity edema and volume overload prompting readmission on 02/13/2023. On admission creatinine was 2.3, his baseline weight around 270-275 lb but on admission his weight was 309 lb. Restarted on higher dose of Bumex 40 mg IV twice a day. Since admission he was 4 L negative but rapid worsening of kidney function noted with creatinine up to 3.3 this morning, electrolyte acceptable. Progressive worsening of renal function, low urine output and worsening LE edema. -- add metolazone 5 mg in a.m. in addition to Bumex 4 mg IV b.i.d., aim for net negative, continue to monitor urine output, renal function and electrolytes c losely. if renal function continues to worsen, eventually we may have to consider ultrafiltration to improve LE edema. Discussed in detail with Mustapha and his over telephone, verbalized understanding. -- check renal function and electrolyte tomorrow. will follow. Admission and Anticipated Discharge Date Admission Date: February 12, 2023 Subjective Mustapha was seen and evaluated this morning. Overall he feels well, denies any shortness of breath or chest pain. Urine output remains low,last 24 hour urine output was only 450 mL. Renal function continues to worsen, LE edema worse with weeping and blisters, blood pressure has been relatively stable. Review of Systems Review of Systems: detailed review of system was otherwise unremarkable. Physical Exam Constitutional: WD/WN, vitals as above no acute distress Eyes: + anicteric sclerae Neck: normal visual inspection Respiratory: Auscultation: lungs clear to auscultation bilaterally Cardiovascular: Rate/Rhythm: regular rate and regular rhythm Heart Sounds: normal S1 and normal S2 Extremities: + edema (chronic b/l lymphedema) Skin: + crusts Neurologic: no focal motor deficits Psychiatric: Orientation: alert and oriented x 3 Affect: euthymic affect Results & Data Vital Signs (Past 12 Hours) Vital Signs Temp Pulse Resp BP Pulse Ox O2 Del Method 02/17/23 07:56 36.4 C L 85 18 130/68 98 Room Air PG Care Time/CCT Total # of Minutes Spent Total Time Spent with Patient: Total time spent is greater than 50% in coordination of care (as documented) at patient's floor/unit and/or counseling patient: Coding Level of Care Code 98225 SUB INP/OBS CARE 3/50MIN Diagnoses Acute kidney injury superimposed on CKD N17.9; N18.9 Anemia D64.9 Anemia type: unspecified type Bilateral edema of lower extremity R60.0 Hyponatremia E87.1 Hypertension I10 (2) Anemia Anemia type: unspecified type Qualified Code(s): D64.9 - Anemia, unspecified
--- NOTE | 2023-02-17 16:48 | Hospitalist Progress Note ---
Date of Service February 17, 2023 Assessment & Plan (1) Volume overload: Plan: Has had significant volume overload/swelling/weight gain since discharge on 01/28, BNP elevated to 709 (highest it has ever been) Likely due to only taking bumex once daily but had been taking his spironolactone 100mg daily Patient has had very little daily urine output on daily Bumex dosing, was recommended for admission by Dr. Giraldo of Nephrology as she has been following outpatient Nephrology consulted - And added metolazone 5 mg in a.m. in addition to Bumex 4 mg IV b.i.d., aim for net negative, continue to monitor urine output, renal function and electrolytes closely. Nephrology stated they may have to consider ultrafiltration to improve LE edema. This was discussed in detail with Mustapha and his over telephone, verbalized understanding. Checking Renal UA for ANNA for further eval -- no obstruction. UA neg for blood/protein. Microscopy neg for casts Iron studies w/ iron 27%, ferriting 129 --> Venofer ordered by nephrology for his anemia 3/4 doses ECHO to eval worsening EF --> EF not reduced (of note, did have trop in 50s last admit, not repeated) ECHO w/o wma Report: LV systolic function normal.EF 60-65%. LA mod dilated, mild valvular aortic stenosis, mild mitral regurgitation. RVSP elevated at 40-50mmHg. IVC mildly dilated. Monitor daily weights/I&O, Continue low Na/AHA diet Monitor labs on repeat *Did check procal , 0.51 (much improved from prior 9.2 earlier in month and completed course IV Zosyn for LE cellulitis). No WBC elevation/fevers, did add blood cultures and will monitor given possible contaminent last admit (and hasn't been on abx current admit) (2) Acute kidney injury superimposed on CKD: Plan: Cr 3.07 on admit, 2nd to volume overload/anemia/vit d def/etc Renal US ordered for further eval, poor imaging given body habitus, no obstructions noted ?cardio vs hepatorenal Iron panel checked -- venofer ordered by nephrology, daily (day 4) repleting folate, vit D given prior deficiency Avoid nephrotoxins/renal dose meds as possible Monitor renal function in AM (3) Anemia: Plan: chronic, hx CML following w/ CCP Checked iron panel, venofer as above by nephrology day 01/25 B12 wnl, Folate low prior and continues on supplementation (improved from last month, not on home med list but pt states had been taking) Fecal occult NEGATIVE Monitor (4) Cirrhosis: Plan: Has a knwon history , denies ETOH Total bili 2.9, down from 6.7 as of 01/22, INR at 1.4 (down from 1.7 as of 01/22/23) on admit Tb 3.8, AST 40 Liver US w/ small amt ascites --> not having abdominal pain Continue increased dose bumex 4mg IV BID ( ?switching to torsemide), spironolactone 100mg daily --> bumex on hold as above Low Na diet encouraged -- see above regarding issues w/ meals at home GI consulted -- outpt f/u recs. Will add serological workup to AM labs in meantime while awaiting outpt f/u Monitor LFTs, avoid all alcohol Bilirubin appears to be trending down Reviewed labs today and ordered repeat LFTs and INR for the AM to calculate MELD (5) Hyponatremia: Plan: Nephrology following, fluid restriction, diuretics as outlined Encouraged low Na diet/fluid restriction at home Reviewed BMP today and will reorder repeat labs for tomorrow (6) S/P ablation of atrial fibrillation: Plan: Stable No currently on anticoagulation -- EKG on admit NSR, L anterior fascicular block, RBBB Continue metoprolol (7) CML (chronic myelocytic leukemia): Plan: Follows [facility], they are currently monitoring consider reaching out friday if needed (8) Hypothyroidism: Plan: Continue levothyroxine TSH slight elevation 4.554, but Ft4/ft3 wnl and continue current dose but changed to AM and rec complaince w/ proper admin to patient as outpatient (9) Hypertension: Plan: Stable Continue metoprolol w. hold parameters On spironolactone -- continued, bumex resumed by nephro (10) GERD (gastroesophageal reflux disease): Plan: Daily famotidine while admitted no sx reported currently (11) Vitamin D deficiency: Plan: replacement ordered, continue at d/c (12) Folate deficiency: Plan: prior low dec 2022, repeat ordered and replacement Lymphedema -- Wound RN consulted -- Seen w/ wound RN -- amlactin ordered NON TENDER/NO LEUKOCYTOSIS or fever Monitor for any infection, just completed course Zosyn for LE cellulitis Blood cultures added as above, monitor ?CM to see about low Na meals on wheels given discussion w/ patient and caring for his since last summer w/ back infection and eating out/prepared meals and he does endorse he has not really being taking care of himself -- info for MOMs/low Na meals, vouchers for [employer] market provided Plan continued inpatient stay worsening renal function, nephrology following -- may need to consider ultrafiltration for assistance Admission and Anticipated Discharge Date Admission Date: February 12, 2023 Subjective Patient was seen and evaluated this afternoon. He is sitting up in the recliner and has no complaints. Urine output remains low - last 24 hour urine output was only 450 mL. Nephrology is following. Bilateral LE edema dressing in place due to weeping and blisters, blood pressure has been relatively stable - 132/69 Review of Systems Review of Systems: Patient denies any chest pain, SOB, nausea abdominal pain, diarrhea or constipation. Physical Exam Constitutional: Patient is sitting up in recliner Neck: trachea midline, no thyromegaly Respiratory: normal respiratory effort, lungs clear to auscultation Cardiovascular: Rate/Rhythm: regular rate Heart Sounds: + murmur Extremities: + edema Gastrointestinal (Abdomen): Obese, +bowel sounds soft and nontender Psychiatric: A+Ox3, euthymic affect Results & Data Results & Data Vital Signs (Past 12 Hours) Vital Signs Temp Pulse Pulse Resp BP Pulse Ox O2 Del Method 02/17/23 15:36 36.7 C 66 16 132/69 97 Room Air 02/17/23 07:56 36.4 C L 85 18 130/68 98 Room Air Laboratory Results Abnormal lab results 02/17/23 02/17/23 02/17/23 Range/Units 07:19 07:19 07:19 RBC 2.55 L (4.70-6.10) M/uL Hgb 8.8 L (14.0-18.0) g/dl Hct 26.6 L (42.0-52.0) % MCV 104.3 H (80.0-100.0) fL MCH 34.5 H (25.0-34.0) pg RDW Std Deviation 62.5 H (36.4-46.3) fL RDW Coeff of Howie 16.4 H (11.5-14.5) % Plt Count 127 L (130-400) K/uL [place] # (Auto) 1.08 H (0.11-0.59) K/uL Eos # (Auto) 0.72 H (0-0.50) K/uL PT 14.7 H (9.0-12.0) Seconds INR 1.4 H (0.9-1.1) Sodium 131 L (136-145) mmol/L Chloride 95 L (98-107) mmol/L BUN 62 H (6-23) mg/dl Creatinine 4.72 H* D (0.6-1.4) mg/dl Glucose 113 H (70-99(Fasting)) mg/dl Total Bilirubin 3.7 H (0.2-1.0) mg/dl Direct Bilirubin 1.2 H (0-0.2) mg/dl PG Care Time/CCT Total # of Minutes Spent Total Time Spent with Patient: Total time spent is greater than 50% in coordination of care (as documented) at patient's floor/unit and/or counseling patient: Coding Level of Care Code 28588 SUB INP/OBS CARE 2/35MIN Diagnoses Volume overload E87.70 Acute kidney injury superimposed on CKD N17.9; N18.9 Anemia D64.9 Anemia type: unspecified type Cirrhosis K74.60 Hyponatremia E87.1 S/P ablation of atrial fibrillation Z98.890; Z86.79 CML (chronic myelocytic leukemia) C92.10 Hypothyroidism E03.9 Hypertension I10 GERD (gastroesophageal reflux disease) K21.9 Vitamin D deficiency E55.9 Folate deficiency E53.8 (3) Anemia Anemia type: unspecified type Qualified Code(s): D64.9 - Anemia, unspecified
[2023-02-17] MEDS ORDERED: hydrOXYzine HCl 25 MG TAB PO STA (20:35)
[2023-02-18] MEDS: LEVOTHYROXINE SODIUM 137 MCG TABLET PO SCH (06:09)
[2023-02-18] MEDS: HEPARIN SOD 5,000 UNIT/0.5 ML VIAL SQ SCH ×4 (06:09→22:04)
[2023-02-18 07:45] LABS: INR 1.4 (0.9-1.1); Prothrombin Time 14.5 Seconds (9.0-12.0)
[2023-02-18 08:26] LABS: Albumin Level 3.6 gm/dl (3.4-5.0); BUN Creatinine Ratio 12.6 (10-20); Bilirubin Direct 1.1 mg/dl (0-0.2); Bilirubin,Total 3.8 mg/dl (0.2-1.0); Calcium 9.7 mg/dl (8.6-10.3); Creatinine Clr Calc Pharmacy 19.6 ml/min; Est GFR (African American) 12.5 ml/min; Est GFR (Non-African American) 10.8 ml/min; Phosphorus 4.4 mg/dl (2.5-4.9)
[2023-02-18] MEDS: AMMONIUM LACTATE 12% LOTION 225 GM BTL EXT SCH (09:14)
[2023-02-18] MEDS: CHOLECALCIFEROL 1,000 UNITS 25 MCG TAB PO SCH (09:15)
[2023-02-18] MEDS: metOLazone 5 MG TABLET PO SCH (09:15)
[2023-02-18] MEDS: FOLIC ACID 1 MG TAB PO SCH (09:16)
[2023-02-18] MEDS: METOPROLOL SUCC 50MG EXT REL TAB PO SCH (09:16)
[2023-02-18] MEDS: SPIRONOLACTONE 100 MG TAB PO SCH (09:16)
[2023-02-18] MEDS: FAMOTIDINE 20 MG TAB PO SCH (09:17)
[2023-02-18] MEDS: MAGNESIUM OXIDE 400 MG TAB PO SCH ×2 (09:17→20:00)
[2023-02-18] MEDS: BUMETANIDE 4 MG in SYRINGE 0 ML IV SCH ×2 (10:10→17:35)
[2023-02-18] MEDS: allopurinoL 300 MG TAB PO SCH (11:16)
--- NOTE | 2023-02-18 12:49 | Hospitalist Progress Note ---
Date of Service February 18, 2023 Assessment & Plan (1) Volume overload: Plan: Has had significant volume overload/swelling/weight gain since discharge on 01/28, BNP elevated to 709 (highest it has ever been) Likely due to only taking bumex once daily but had been taking his spironolactone 100mg daily Patient has had very little daily urine output on daily Bumex dosing, was recommended for admission by Dr. Giraldo of Nephrology as she has been following outpatient Nephrology consulted - And added metolazone 5 mg in a.m. in addition to Bumex 4 mg IV b.i.d., aim for net negative, continue to monitor urine output, renal function and electrolytes closely. Nephrology stated they may have to consider ultrafiltration to improve LE edema. This was discussed in detail with Mustapha and his over telephone, verbalized understanding. Checking Renal UA for ANNA for further eval -- no obstruction. UA neg for blood/protein. Microscopy neg for casts Iron studies w/ iron 27%, ferriting 129 --> Venofer ordered by nephrology for his anemia 3/4 doses ECHO to eval worsening EF --> EF not reduced (of note, did have trop in 50s last admit, not repeated) ECHO w/o wma Report: LV systolic function normal.EF 60-65%. LA mod dilated, mild valvular aortic stenosis, mild mitral regurgitation. RVSP elevated at 40-50mmHg. IVC mildly dilate (2) Acute kidney injury superimposed on CKD: Plan: Nephrology following Reviewed BMP, Worsening renal functions with improved urine output Avoid nephrotoxins/renal dose meds as possible Monitor renal function in AM (3) Anemia: Plan: chronic, hx CML following w/ CCP Checked iron panel, venofer as above by nephrology 4 doses B12 wnl, Folate low prior and continues on supplementation (improved from last month, not on home med list but pt states had been taking) Fecal occult NEGATIVE Repeat CBC in AM (4) Cirrhosis: Plan: Has a known history , denies ETOH Liver US w/ small amt ascites --> not having abdominal pain GI consulted -- outpt f/u recs. Serological workup pending outpt f/u Monitor LFTs, avoid all alcohol Bilirubin appears to be trending down Reviewed labs today and ordered repeat LFTs and INR for the AM to calculate MELD (5) Hyponatremia: Plan: Nephrology following, fluid restriction, diuretics as outlined Encouraged low Na diet/fluid restriction at home Reviewed BMP today and will reorder repeat labs for tomorrow (6) S/P ablation of atrial fibrillation: Plan: Stable and chronic No currently on anticoagulation -- EKG on admit NSR, L anterior fascicular block, RBBB Continue metoprolol (7) CML (chronic myelocytic leukemia): Plan: Follows [facility], they are currently monitoring consider reaching out friday if needed (8) Hypothyroidism: Plan: Stable and chronic Continue levothyroxine (9) Hypertension: Plan: Stable and chronic Continue metoprolol w. hold parameters (10) GERD (gastroesophageal reflux disease): Plan: Daily famotidine while admitted no sx reported currently (11) Vitamin D deficiency: Plan: replacement ordered, continue at d/c (12) Folate deficiency: Plan: prior low dec 2022, repeat ordered and replacement Lymphedema -- Wound RN consulted -- Seen w/ wound RN -- amlactin ordered NON TENDER/NO LEUKOCYTOSIS or fever Monitor for any infection, just completed course Zosyn for LE cellulitis Blood cultures added as above, monitor ?CM to see about low Na meals on wheels given discussion w/ patient and caring for his since last summer w/ back infection and eating out/prepared meals and he does endorse he has not really being taking care of himself -- info for MOMs/low Na meals, vouchers for farmers market provided Plan continued inpatient stay worsening renal function, nephrology following -- may need to consider ultrafiltration for assistance Admission and Anticipated Discharge Date Admission Date: February 12, 2023 Subjective Patient was seen and evaluated this afternoon. He is sitting up in the recliner and has no complaints. Urine output over last 24 hour improved to 1050 (was only 450 mL yesterday) but Creatinine worsened to 5.17 (4.72) Nephrology is following. Bilateral LE edema dressing in place due to weeping and blisters, blood pressure has been relatively stable. Review of Systems Review of Systems: Patient denies any chest pain, SOB, nausea abdominal pain, diarrhea or constipation. Physical Exam Constitutional: + morbidly obese; not in distress Neck: trachea midline, no thyromegaly Respiratory: normal respiratory effort, lungs clear to auscultation Cardiovascular: Rate/Rhythm: regular rate Heart Sounds: + murmur Extremities: + edema Gastrointestinal (Abdomen): obese, +BS nontender Psychiatric: A+Ox3, euthymic affect Results & Data Results & Data Vital Signs (Past 12 Hours) Vital Signs Temp Pulse Resp BP Pulse Ox O2 Del Method 02/18/23 09:12 87 120/62 02/18/23 07:40 36.6 C 79 16 121/64 97 Room Air Laboratory Results Abnormal lab results 02/18/23 02/18/23 Range/Units 06:26 06:26 PT 14.5 H (9.0-12.0) Seconds INR 1.4 H (0.9-1.1) Sodium 132 L (136-145) mmol/L Chloride 95 L (98-107) mmol/L BUN 65 H (6-23) mg/dl Creatinine 5.17 H* D (0.6-1.4) mg/dl Total Bilirubin 3.8 H (0.2-1.0) mg/dl Direct Bilirubin 1.1 H (0-0.2) mg/dl PG Care Time/CCT Total # of Minutes Spent Total Time Spent with Patient: Total time spent is greater than 50% in coordination of care (as documented) at patient's floor/unit and/or counseling patient: Coding Level of Care Code 71336 SUB INP/OBS CARE 2/35MIN Diagnoses Volume overload E87.70 Acute kidney injury superimposed on CKD N17.9; N18.9 Anemia D64.9 Anemia type: unspecified type Cirrhosis K74.60 Hyponatremia E87.1 S/P ablation of atrial fibrillation Z98.890; Z86.79 CML (chronic myelocytic leukemia) C92.10 Hypothyroidism E03.9 Hypertension I10 GERD (gastroesophageal reflux disease) K21.9 Vitamin D deficiency E55.9 Folate deficiency E53.8 (3) Anemia Anemia type: unspecified type Qualified Code(s): D64.9 - Anemia, unspecified
--- NOTE | 2023-02-18 14:59 | Nephrology Progress Note ---
Date of Service February 18, 2023 Assessment & Plan (1) Acute kidney injury superimposed on CKD: (2) Anemia: (3) Bilateral edema of lower extremity: (4) Hyponatremia: (5) Hypertension: Plan 67 year old male the history of stage III A CKD baseline creatinine around 1.5- 1.6 in the setting of high-dose diuretic use for chronic lower extremity lymphedema and prior history of repeated episodes of ANNA. No significant proteinuria hematuria. Prior renal imaging was otherwise unremarkable. 2D echo previously showed EF 60-65% with moderate LVH with history of hypertension. Recently was admitted to the hospital with lower extremity cellulitis and had ANNA and diuretics was on hold with decent urine output. On discharge he was started back on Bumex 1 mg daily but as an outpatient lab showed kidney function worsening as well as worsening lower extremity edema and volume overload prompting readmission on 02/13/2023. On admission creatinine was 2.3, his baseline weight around 270-275 lb but on admission his weight was 309 lb. Restarted on higher dose of Bumex 40 mg IV twice a day. Since admission he was 4 L negative but rapid worsening of kidney function noted with creatinine up to 3.3 this morning, electrolyte acceptable. Progressive worsening of renal function, low urine output and worsening LE edema. -- Continue metolazone 5 mg in a.m. in addition to Bumex 4 mg IV b.i.d., aim for net negative 0.5-1 L per day, continue to monitor urine output, renal func tion and electrolytes closely. if suboptimal response, will consider increasing metolazone does, if renal function continues to worsen, eventually we may have to consider ultrafiltration to improve LE edema. Discussed in detail with Mustapha and his over telephone, verbalized understanding. -- check renal function and electrolyte tomorrow. will follow. Admission and Anticipated Discharge Date Admission Date: February 12, 2023 Subjective Mustapha was seen and evaluated this morning. Overall he feels well, denies any shortness of breath or chest pain, Nausea or vomiting. Urine output improved after metolazone was added yesterday, had more than 1 L urine output and sligh tly net negative.. Renal function continues to worsen, Creatinine up to 5.2, electrolyte acceptable. LE edema worse with weeping and blisters, blood pressure has been relatively stable. Review of Systems Review of Systems: detailed review of system was otherwise unremarkable. Physical Exam Constitutional: WD/WN, vitals as above no acute distress Eyes: + anicteric sclerae Neck: normal visual inspection Respiratory: Auscultation: lungs clear to auscultation bilaterally Cardiovascular: Rate/Rhythm: regular rate and regular rhythm Heart Sounds: normal S1 and normal S2 Extremities: + edema (chronic b/l lymphedema) Skin: + crusts Neurologic: no focal motor deficits Psychiatric: Orientation: alert and oriented x 3 Affect: euthymic affect Results & Data Vital Signs (Past 12 Hours) Vital Signs Temp Pulse Resp BP Pulse Ox O2 Del Method 02/18/23 09:12 87 120/62 02/18/23 07:40 36.6 C 79 16 121/64 97 Room Air PG Care Time/CCT Total # of Minutes Spent Total Time Spent with Patient: Total time spent is greater than 50% in coordination of care (as documented) at patient's floor/unit and/or counseling patient: Coding Level of Care Code 79836 SUB INP/OBS CARE 3/50MIN Diagnoses Acute kidney injury superimposed on CKD N17.9; N18.9 Anemia D64.9 Anemia type: unspecified type Bilateral edema of lower extremity R60.0 Hyponatremia E87.1 Hypertension I10 (2) Anemia Anemia type: unspecified type Qualified Code(s): D64.9 - Anemia, unspecified
[2023-02-18] MEDS: hydrOXYzine HCl 25 MG TAB PO PRN (20:00)
[2023-02-19] MEDS: LEVOTHYROXINE SODIUM 137 MCG TABLET PO SCH (06:12)
[2023-02-19 08:19] LABS: INR 1.4 (0.9-1.1); Prothrombin Time 15.1 Seconds (9.0-12.0)
[2023-02-19] MEDS: MAGNESIUM OXIDE 400 MG TAB PO SCH ×2 (08:53→20:25)
[2023-02-19] MEDS: AMMONIUM LACTATE 12% LOTION 225 GM BTL EXT SCH (08:53)
[2023-02-19] MEDS: FAMOTIDINE 20 MG TAB PO SCH (08:54)
[2023-02-19] MEDS: CHOLECALCIFEROL 1,000 UNITS 25 MCG TAB PO SCH (08:54)
[2023-02-19] MEDS: FOLIC ACID 1 MG TAB PO SCH (08:54)
[2023-02-19] MEDS: metOLazone 5 MG TABLET PO SCH (08:54)
[2023-02-19] MEDS: SPIRONOLACTONE 100 MG TAB PO SCH (08:54)
[2023-02-19] MEDS: METOPROLOL SUCC 50MG EXT REL TAB PO SCH (08:54)
[2023-02-19] MEDS: BUMETANIDE 4 MG in SYRINGE 0 ML IV SCH ×2 (09:32→19:48)
[2023-02-19 09:47] LABS: Albumin Level 3.4 gm/dl (3.4-5.0); BUN Creatinine Ratio 12.5 (10-20); Bilirubin Direct 1.1 mg/dl (0-0.2); Bilirubin,Total 3.5 mg/dl (0.2-1.0); Calcium 9.8 mg/dl (8.6-10.3); Creatinine Clr Calc Pharmacy 19.1 ml/min; Est GFR (Non-African American) 10.4 ml/min; Potassium 5.1 mmol/L (3.5-5.1); Total Protein 7.7 gm/dl (6.0-8.3)
[2023-02-19] MEDS: allopurinoL 300 MG TAB PO SCH (12:05)
[2023-02-19] MEDS: HEPARIN SOD 5,000 UNIT/0.5 ML VIAL SQ SCH ×2 (13:10→20:16)
--- NOTE | 2023-02-19 13:50 | Hospitalist Progress Note ---
Date of Service February 19, 2023 Assessment & Plan (1) Volume overload: Plan: Has had significant volume overload/swelling/weight gain since discharge on 01/28, BNP elevated to 709 (highest it has ever been) Likely due to only taking bumex once daily but had been taking his spironolactone 100mg daily Patient has had very little daily urine output on daily Bumex dosing, was recommended for admission by Dr. Giraldo of Nephrology as she has been following outpatient Nephrology consulted - And added metolazone 5 mg in a.m. in addition to Bumex 4 mg IV b.i.d., aim for net negative, continue to monitor urine output, renal function and electrolytes closely. Nephrology stated they may have to consider ultrafiltration to improve LE edema. This was discussed in detail with Mustapha and his over telephone, verbalized understanding. Today patient requested a second opinion nephrology consult with Lisa. Spoke today with Dr Bower's Physician Museum Director who stated she felt that patient was adequately managed and possibly needed ultrafiltration/dialysis. She stated that the physicians would review patient's chart further and would call back later this afternoon with any further recommendations. I discussed this with patient and he states that if he needs ultrafiltration or dialysis he would be willing to continue this with nephrology here at [facility]. Checked Renal US for ANNA for further eval -- no obstruction. UA neg for bloo d/protein. Microscopy neg for casts Iron studies w/ iron 27%, ferriting 129 --> Venofer ordered by nephrology for his anemia 3/4 doses ECHO to eval worsening EF --> EF not reduced (of note, did have trop in 50s last admit, not repeated) ECHO w/o wma Report: LV systolic function normal.EF 60-65%. LA mod dilated, mild valvular aortic stenosis, mild mitral regurgitation. RVSP elevated at 40-50mmHg. IVC mildly dilate (2) Acute kidney injury superimposed on CKD: Plan: Nephrology following (see above note) Reviewed BMP, Worsening renal functions with improved urine output Recheck BMP in AM Avoid nephrotoxins/renal dose meds as possible (3) Anemia: Plan: chronic, hx CML following w/ CCP Checked iron panel, venofer as above by nephrology 4 doses B12 wnl, Folate low prior and continues on supplementation (improved from last month, not on home med list but pt states had been taking) Fecal occult NEGATIVE (4) Cirrhosis: Plan: Has a known history , denies ETOH Liver US w/ small amt ascites --> not having abdominal pain GI consulted -- outpt f/u recs. Serological workup pending outpt f/u Monitor LFTs, avoid all alcohol Bilirubin appears to be trending down Albumin 3.4 (3.6) (5) S/P ablation of atrial fibrillation: Plan: Stable and chronic No currently on anticoagulation -- EKG on admit NSR, L anterior fascicular block, RBBB Continue metoprolol (6) CML (chronic myelocytic leukemia): Plan: [facility], they are currently monitoring (7) Hypothyroidism: Plan: Stable and chronic Continue levothyroxine (8) Hypertension: Plan: Stable and chronic Continue metoprolol w. hold parameters (9) GERD (gastroesophageal reflux disease): Plan: Stable and chronic Daily famotidine while admitted no sx reported currently (10) Vitamin D deficiency: Plan: replacement ordered, continue at d/c (11) Folate deficiency: Plan: prior low dec 2022, repeat ordered and replacement Lymphedema -- Wound RN consulted -- Seen w/ wound RN -- amlactin ordered NON TENDER/NO LEUKOCYTOSIS or fever Monitor for any infection, just completed course Zosyn for LE cellulitis Blood cultures - Negative at 48 hours Plan continued inpatient stay worsening renal function, nephrology following -- may need to consider ultrafiltration for assistance Phone consult placed with nephrology at [place] for family requesting a second opinion with nephrology at [place] (see above note) [place] stated nothing else to add and agreed with ultrafiltration/dialysis Patient states he is willing to have dialysis here with [facility] nephrology Admission and Anticipated Discharge Date Admission Date: February 12, 2023 Subjective Patient was seen and evaluated this afternoon. He is sitting up in the recliner and has no complaints. Urine output over last 24 hour improved to 1650 (was 1050 mL yesterday) but Creatinine continues to worsened to 5.35 (5.17) (4.72) Nephrology is following - family was requesting a second opinion with nephrology at [place]. Spoke today with Dr Bower's Physician Museum Director who stated she felt that patient was adequately managed and possibly needed ultrafiltration/tricia lysis. She stated that the physicians would review patient's chart further and would call back later this afternoon with any further recommendations. I discussed this with patient and he states that if he needs ultrafiltration or dialysis he would be willing to continue this with nephrology here at [facility]. Bilateral LE edema dressing in place due to weeping and blisters, blood pressure has been relatively stable. Review of Systems Review of Systems: Patient denies any chest pain, SOB, nausea abdominal pain, diarrhea or constipation. Physical Exam Constitutional: + morbidly obese; not in distress Eyes: sitting in recliner Neck: trachea midline, no thyromegaly Respiratory: normal respiratory effort, lungs clear to auscultation Cardiovascular: Rate/Rhythm: regular rate Heart Sounds: + murmur Extremities: + edema Gastrointestinal (Abdomen): obese, +BS nontender Psychiatric: A+Ox3, euthymic affect Lymphatic: + lymphedema Results & Data Results & Data Vital Signs (Past 12 Hours) Vital Signs Temp Pulse Resp BP Pulse Ox O2 Del Method 02/19/23 08:50 Room Air 02/19/23 08:53 66 125/66 02/19/23 07:08 36.6 C 68 17 119/61 95 Room Air Laboratory Results Abnormal lab results 02/19/23 02/19/23 Range/Units 07:21 07:21 PT 15.1 H (9.0-12.0) Seconds INR 1.4 H (0.9-1.1) Sodium 132 L (136-145) mmol/L Chloride 95 L (98-107) mmol/L BUN 67 H (6-23) mg/dl Creatinine 5.35 H* (0.6-1.4) mg/dl Total Bilirubin 3.5 H (0.2-1.0) mg/dl Direct Bilirubin 1.1 H (0-0.2) mg/dl PG Care Time/CCT Total # of Minutes Spent Total Time Spent with Patient: Total time spent is greater than 50% in coordination of care (as documented) at patient's floor/unit and/or counseling patient: Coding Level of Care Code 66468 SUB INP/OBS CARE 3/50MIN Diagnoses Volume overload E87.70 Acute kidney injury superimposed on CKD N17.9; N18.9 Anemia D64.9 Anemia type: unspecified type Cirrhosis K74.60 S/P ablation of atrial fibrillation Z98.890; Z86.79 CML (chronic myelocytic leukemia) C92.10 Hypothyroidism E03.9 Hypertension I10 GERD (gastroesophageal reflux disease) K21.9 Vitamin D deficiency E55.9 Folate deficiency E53.8 (3) Anemia Anemia type: unspecified type Qualified Code(s): D64.9 - Anemia, unspecified
--- NOTE | 2023-02-19 14:33 | Nephrology Progress Note ---
Date of Service February 19, 2023 Assessment & Plan (1) Acute kidney injury superimposed on CKD: (2) Anemia: (3) Bilateral edema of lower extremity: (4) Hyponatremia: (5) Hypertension: Plan 67 year old male the history of stage III A CKD baseline creatinine around 1.5- 1.6 in the setting of high-dose diuretic use for chronic lower extremity lymphedema and prior history of repeated episodes of ANNA. No significant proteinuria hematuria. Prior renal imaging was otherwise unremarkable. 2D echo previously showed EF 60-65% with moderate LVH with history of hypertension. Recently was admitted to the hospital with lower extremity cellulitis and had ANNA and diuretics was on hold with decent urine output. On discharge he was started back on Bumex 1 mg daily but as an outpatient lab showed kidney function worsening as well as worsening lower extremity edema and volume overload prompting readmission on 02/13/2023. On admission creatinine was 2.3, his baseline weight around 270-275 lb but on admission his weight was 309 lb. Restarted on higher dose of Bumex 40 mg IV twice a day. Since admission he was 4 L negative but rapid worsening of kidney function noted with creatinine up to 3.3 this morning, electrolyte acceptable. Progressive worsening of renal function, urine output improved 1.5 L -1 metolazone and slight improvement in abdominal distension but lower extremity edema is hard to partnership manager as at with significant lymphedema. -- Continue metolazone 5 mg in a.m. in addition to Bumex 4 mg IV b.i.d., as he is responding to that with net -1 0.5 L. would continue that with strict monitoring of intake and output. Other option would be to consider ultrafil tration however in his case I am worried that if I start him on ultrafiltration at dialysis it will be most likely permanent. If renal function continues to worsen with metolazone, will have to make decision in next 24-48 hours regarding ultrafiltration/dialysis considering already compromised renal function. Patient and both expressed interest in getting a 2nd opinion from [facility] or transferring him there. Discussed with primary team who reach target to [facility] to initially felt that he is being managed adequately here and he did not see any indication to transfer but also recommended that he may need ultrafiltration slight dialysis. Mustapha is agreeable to consider dialysis here if needed. -- check renal function and electrolyte tomorrow. will follow. Admission and Anticipated Discharge Date Admission Date: February 12, 2023 Imelda Luciano was seen and evaluated this morning. Overall he is feeling about the same. Responded better with added metolazone overall net -1 0.5 L however her renal function continues to worsen creatinine 5.4, electrolyte acceptable. No clear uremic symptoms but he feels fatigued. Not eating well and he blames that to hospital food not necessarily his appetite low Review of Systems Review of Systems: detailed review of system was otherwise unremarkable. Physical Exam Constitutional: WD/WN, vitals as above no acute distress Eyes: + anicteric sclerae Neck: normal visual inspection Respiratory: Auscultation: lungs clear to auscultation bilaterally Cardiovascular: Rate/Rhythm: regular rate and regular rhythm Heart Sounds: normal S1 and normal S2 Extremities: + edema (chronic b/l lymphedema) Skin: + crusts Neurologic: no focal motor deficits Psychiatric: Orientation: alert and oriented x 3 Affect: euthymic affect Results & Data Vital Signs (Past 12 Hours) Vital Signs Temp Pulse Resp BP Pulse Ox O2 Del Method 02/19/23 08:50 Room Air 02/19/23 08:53 66 125/66 02/19/23 07:08 36.6 C 68 17 119/61 95 Room Air PG Care Time/CCT Total # of Minutes Spent Total Time Spent with Patient: Total time spent is greater than 50% in coordination of care (as documented) at patient's floor/unit and/or counseling patient: Coding Level of Care Code 74353 SUB INP/OBS CARE 3/50MIN Diagnoses Acute kidney injury superimposed on CKD N17.9; N18.9 Anemia D64.9 Anemia type: unspecified type Bilateral edema of lower extremity R60.0 Hyponatremia E87.1 Hypertension I10 (2) Anemia Anemia type: unspecified type Qualified Code(s): D64.9 - Anemia, unspecified
[2023-02-19] MEDS: hydrOXYzine HCl 25 MG TAB PO PRN (20:25)
[2023-02-20] MEDS: HEPARIN SOD 5,000 UNIT/0.5 ML VIAL SQ SCH ×3 (00:41→20:49)
[2023-02-20] MEDS: LEVOTHYROXINE SODIUM 137 MCG TABLET PO SCH (05:52)
[2023-02-20 06:45] LABS: Hematocrit (blood only) 28.7 % (42.0-52.0); Hemoglobin 9.8 g/dl (14.0-18.0); Mean Corpuscular Hemoglobin 35.4 pg (25.0-34.0); Mean Corpuscular Hgb Conc 34.1 g/dL (32.0-36.0); Mean Corpuscular Volume 103.6 fL (80.0-100.0); Mean Platelet Volume 10.1 fL (9.4-12.4); Platelet Count 131 K/uL (130-400); RDW Coefficient of Variation 16.6 % (11.5-14.5); RDW Standard Deviation 61.8 fL (36.4-46.3); Red Blood Count 2.77 M/uL (4.70-6.10); White Blood Count 11.03 K/ul (4.8-10.8)
[2023-02-20 07:33] LABS: Albumin Level 3.5 gm/dl (3.4-5.0); BUN Creatinine Ratio 14.4 (10-20); Bilirubin Direct 1.1 mg/dl (0-0.2); Bilirubin,Total 3.5 mg/dl (0.2-1.0); Calcium 9.9 mg/dl (8.6-10.3); Creatinine Clr Calc Pharmacy 21.2 ml/min; Est GFR (African American) 13.7 ml/min; Est GFR (Non-African American) 11.8 ml/min; Magnesium 2.4 mg/dl (1.7-2.4); Phosphorus 4.2 mg/dl (2.5-4.9); Potassium 4.7 mmol/L (3.5-5.1)
[2023-02-20] MEDS: AMMONIUM LACTATE 12% LOTION 225 GM BTL EXT SCH (07:40)
[2023-02-20] MEDS: SPIRONOLACTONE 100 MG TAB PO SCH (07:41)
[2023-02-20] MEDS: METOPROLOL SUCC 50MG EXT REL TAB PO SCH (07:41)
[2023-02-20] MEDS: MAGNESIUM OXIDE 400 MG TAB PO SCH ×2 (07:41→20:49)
[2023-02-20] MEDS: CHOLECALCIFEROL 1,000 UNITS 25 MCG TAB PO SCH (07:41)
[2023-02-20] MEDS: FOLIC ACID 1 MG TAB PO SCH (07:41)
[2023-02-20] MEDS: FAMOTIDINE 20 MG TAB PO SCH (07:41)
[2023-02-20] MEDS: metOLazone 5 MG TABLET PO SCH (07:41)
[2023-02-20] MEDS: BUMETANIDE 4 MG in SYRINGE 0 ML IV SCH ×2 (09:11→18:04)
[2023-02-20] MEDS: allopurinoL 300 MG TAB PO SCH (11:54)
[2023-02-20 11:56] LABS: Albumin 3.5 g/dL (3.8-4.8); Alpha 1 Globulin 0.3 g/dL (0.2-0.3); Alpha 2 Globulin 0.6 g/dL (0.5-0.9); Anti Mitochondrial Antibody NEGATIVE (NEGATIVE); Beta-1-Globulin 0.4 g/dL (0.4-0.6); Beta-2-Globulin 0.4 g/dL (0.2-0.5); Ceruloplasmin 27 mg/dL (18-36); Gamma Globulin 2.5 g/dL (0.8-1.7); HBSAG NON-REACTIVE (NON-REACTIVE); Hepatitis A Antibody IgM NON-REACTIVE (NON-REACTIVE); Hepatitis B Core Antibody IgM NON-REACTIVE (NON-REACTIVE); Monoclonal Protein Band 1 DNR g/dL (NONE DETECTED); Monoclonal Protein Band 2 DNR g/dL (NONE DETECTED); Monoclonal Protein Band 3 DNR g/dL (NONE DETECTED); Total Protein 7.6 g/dL (6.1-8.1)
[2023-02-20] MEDS ORDERED: EPOETIN ALFA 40,000 UNITS/ML VIAL SQ STA (14:11)
--- NOTE | 2023-02-20 14:12 | Nephrology Progress Note ---
Date of Service February 20, 2023 Assessment & Plan (1) Acute kidney injury superimposed on CKD: (2) Anemia: (3) Bilateral edema of lower extremity: (4) Hyponatremia: (5) Hypertension: Plan 67 year old male the history of stage III A CKD baseline creatinine around 1.5- 1.6 in the setting of high-dose diuretic use for chronic lower extremity lymphedema and prior history of repeated episodes of ANNA. No significant proteinuria hematuria. Prior renal imaging was otherwise unremarkable. 2D echo previously showed EF 60-65% with moderate LVH with history of hypertension. Recently was admitted to the hospital with lower extremity cellulitis and had ANNA and diuretics was on hold with decent urine output. On discharge he was started back on Bumex 1 mg daily but as an outpatient lab showed kidney function worsening as well as worsening lower extremity edema and volume overload prompting readmission on 02/13/2023. On admission creatinine was 2.3, his baseline weight around 270-275 lb but on admission his weight was 309 lb. Restarted on higher dose of Bumex 40 mg IV twice a day. Since admission he was 4 L negative but rapid worsening of kidney function noted, electrolyte acceptable. Noted to have Cirrhosis on CT with h/o fatty liver for >10 years, possibly due to [place]. 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 --Continue metolazone 5 mg in a.m. in addition to Bumex 4 mg IV b.i.d., as he is responding to that with net -2 L. would continue that with strict monitoring of intake and output. Other option would be to consider ultrafiltration however in his case I am worried that if I start him on ultrafiltration at dialysis it will be most likely permanent. for now will continue with diuretics as responding well, but if renal function worsen over the weekend, will decide by Friday about starting on dialysis by Friday, in that case will need to set up outpt dialysis at [facility]. Mustapha is agreeable to consider dialysis here if needed. -- check renal function and electrolyte tomorrow. --GALE 74187 units x 1 dose today ( adequate iron store) will follow. Admission and Anticipated Discharge Date Admission Date: February 12, 2023 Subjective Mustapha was seen and evaluated this morning. Overall he is feeling about the same. Responding better with metolazone net - 2 L , slight improvement in renal function, creatinine 4.8, electrolyte acceptable. Abdominal distension slightly improved. Not eating well and he blames that to hospital food not necessarily his appetite low Review of Systems Review of Systems: detailed review of system was otherwise unremarkable. Physical Exam Constitutional: WD/WN, vitals as above no acute distress Eyes: + anicteric sclerae Neck: normal visual inspection Respiratory: Auscultation: lungs clear to auscultation bilaterally Cardiovascular: Rate/Rhythm: regular rate and regular rhythm Heart Sounds: normal S1 and normal S2 Extremities: + edema (chronic b/l lymphedema) Gastrointestinal (Abdomen): Inspection/Auscultation: + abdomen distended and + abdominal edema (slight improvement) Skin: + crusts Neurologic: no focal motor deficits Psychiatric: Orientation: alert and oriented x 3 Affect: euthymic affect Results & Data Vital Signs (Past 12 Hours) Vital Signs Temp Pulse Resp BP Pulse Ox O2 Del Method 02/20/23 07:10 36.7 C 88 17 118/64 97 Room Air PG Care Time/CCT Total # of Minutes Spent Total Time Spent with Patient: Total time spent is greater than 50% in coordination of care (as documented) at patient's floor/unit and/or counseling patient: Coding Level of Care Code 42447 SUB INP/OBS CARE 3/50MIN Diagnoses Acute kidney injury superimposed on CKD N17.9; N18.9 Anemia D64.9 Anemia type: unspecified type Bilateral edema of lower extremity R60.0 Hyponatremia E87.1 Hypertension I10 (2) Anemia Anemia type: unspecified type Qualified Code(s): D64.9 - Anemia, unspecified
[2023-02-20 16:11] LABS: Hepatitis C Vira RNA (Log) PCR <1.18 NOT DETECTED Log IU/mL (NOT DETECTED); Hepatitis C Viral RNA by PCR <15 NOT DETECTED IU/mL (NOT DETECTED)
--- NOTE | 2023-02-20 17:02 | Hospitalist Progress Note ---
Date of Service February 20, 2023 Assessment & Plan (1) Volume overload: Plan: Has had significant volume overload/swelling/weight gain since discharge on 01/28, BNP elevated to 709 (highest it has ever been) Likely due to only taking bumex once daily but had been taking his spironolactone 100mg daily Patient has had very little daily urine output on daily Bumex dosing, was recommended for admission by Dr. Giraldo of Nephrology as she has been following outpatient Nephrology following Continue metolazone 5 mg in a.m. and Bumex 4 mg IV b.i.d., aim for net negative, continue to monitor urine output, renal function and electrolytes closely. Nephrology stated they may have to consider ultrafiltration to improve LE edema. This was discussed in detail with Mustapha and his at bedside, verbalized understanding. Nephrology stated that if started on ultrafiltration at dialysis it will be most likely permanent and patient is aware. Per nephrology if renal functions worsen over the weekend will make decision by Friday about starting dialysis on Friday. GALE 30700 units x 1 today (2) Acute kidney injury superimposed on CKD: Plan: Nephrology following (see above note) Reviewed BMP, slight improvement in renal function Recheck BMP in AM Avoid nephrotoxins/renal dose meds as possible (3) Anemia: Plan: chronic, hx CML following w/ CCP Checked iron panel, venofer as above by nephrology 4 doses B12 wnl, Folate low prior and continues on supplementation (improved from last month, not on home med list but pt states had been taking) Fecal occult NEGATIVE (4) Cirrhosis: Plan: Has a known history , denies ETOH Liver US w/ small amt ascites --> not having abdominal pain GI consulted -- outpt f/u recs. Serological workup pending outpt f/u Monitor LFTs, avoid all alcohol Bilirubin appears to be trending down Albumin 3.4 (3.6) (5) S/P ablation of atrial fibrillation: Plan: Stable and chronic No currently on anticoagulation -- EKG on admit NSR, L anterior fascicular block, RBBB Continue metoprolol (6) CML (chronic myelocytic leukemia): Plan: [facility]s [facility], they are currently monitoring (7) Hypothyroidism: Plan: Stable and chronic Continue levothyroxine (8) Hypertension: Plan: Stable and chronic Continue metoprolol w. hold parameters (9) GERD (gastroesophageal reflux disease): Plan: Stable and chronic Daily famotidine while admitted no sx reported currently (10) Vitamin D deficiency: Plan: replacement ordered, continue at d/c (11) Folate deficiency: Plan: prior low dec 2022, repeat ordered and replacement Lymphedema -- Wound RN consulted -- Seen w/ wound RN -- amlactin ordered NON TENDER/NO LEUKOCYTOSIS or fever Monitor for any infection, just completed course Zosyn for LE cellulitis Blood cultures - Negative at 48 hours Admission and Anticipated Discharge Date Admission Date: February 12, 2023 Subjective Mustapha was seen and evaluated this morning. Overall he is feeling about the same. Slight improvement in renal function, creatinine 4.8 (5.35), electrolytes a cceptable. Patient is agreeable to continue to follow with Dr Giraldo and is agreeable to ultrafiltration. Nephrology stated if started on dialysis it will most likely be permanent. Review of Systems Review of Systems: Patient denies any chest pain, SOB, nausea abdominal pain, diarrhea or constipation. Physical Exam Constitutional: + morbidly obese; not in distress Neck: trachea midline, no thyromegaly Respiratory: normal respiratory effort, lungs clear to auscultation Cardiovascular: Rate/Rhythm: regular rate Heart Sounds: + murmur Extremities: + edema Gastrointestinal (Abdomen): normal bowel sounds, soft, nontender, no hepatosplenomegaly Psychiatric: A+Ox3, euthymic affect Lymphatic: + lymphedema Results & Data Results & Data Vital Signs (Past 12 Hours) Vital Signs Temp Pulse Resp BP BP Pulse Ox O2 Del Method 02/20/23 14:54 36.7 C 66 17 130/64 97 Room Air 02/20/23 07:10 36.7 C 88 17 118/64 97 Room Air Laboratory Results Abnormal lab results 02/17/23 02/20/23 02/20/23 Range/Units 07:19 06:23 06:23 WBC 11.03 H (4.8-10.8) K/ul RBC 2.77 L (4.70-6.10) M/uL Hgb 9.8 L (14.0-18.0) g/dl Hct 28.7 L (42.0-52.0) % MCV 103.6 H (80.0-100.0) fL MCH 35.4 H (25.0-34.0) pg RDW Std Deviation 61.8 H (36.4-46.3) fL RDW Coeff of Howie 16.6 H (11.5-14.5) % Sodium 133 L (136-145) mmol/L Chloride 94 L (98-107) mmol/L BUN 69 H (6-23) mg/dl Creatinine 4.80 H* D (0.6-1.4) mg/dl Glucose 102 H (70-99(Fasting)) mg/dl Total Bilirubin 3.5 H (0.2-1.0) mg/dl Direct Bilirubin 1.1 H (0-0.2) mg/dl Albumin (PEP) 3.5 L (3.8-4.8) g/dL Gamma Globulins 2.5 H (0.8-1.7) g/dL Actin IgG Antibody 23 H (<20) U Hepatitis C Ab (EIA) BORDERLINE A (NON-REACTIVE) PG Care Time/CCT Total # of Minutes Spent Total Time Spent with Patient: Total time spent is greater than 50% in coordination of care (as documented) at patient's floor/unit and/or counseling patient: Coding Level of Care Code 77560 SUB INP/OBS CARE 3/50MIN Diagnoses Volume overload E87.70 Acute kidney injury superimposed on CKD N17.9; N18.9 Anemia D64.9 Anemia type: unspecified type Cirrhosis K74.60 S/P ablation of atrial fibrillation Z98.890; Z86.79 CML (chronic myelocytic leukemia) C92.10 Hypothyroidism E03.9 Hypertension I10 GERD (gastroesophageal reflux disease) K21.9 Vitamin D deficiency E55.9 Folate deficiency E53.8 (3) Anemia Anemia type: unspecified type Qualified Code(s): D64.9 - Anemia, unspecified
[2023-02-21] MEDS ORDERED: LACTULOSE SYRUP 20 GM/30 ML UDC PO ONE (00:50)
--- NOTE | 2023-02-21 00:52 | Communication Note ---
Date of Service: February 21, 2023 Was called in evening for concern of drowsiness/confusion with ongoing UE tremor for past few days. has been concerned. Checked ammonia level. Elevated at 114. When I saw pt, he was not confused and appeared comfortable. Did have mild UE tremor but no significant asterixis. Unclear if pt is actually encephalopathic however will start lactulose with one dose now and qid starting at 0900. Recheck ammonia in am. Resident Activity Tracking Resident Involvement: Resident Care Provided Care Provided: Adult [facility]
[2023-02-21] MEDS: HEPARIN SOD 5,000 UNIT/0.5 ML VIAL SQ SCH ×3 (05:42→19:34)
[2023-02-21] MEDS: LEVOTHYROXINE SODIUM 137 MCG TABLET PO SCH (05:43)
[2023-02-21] MEDS: MAGNESIUM OXIDE 400 MG TAB PO SCH ×2 (08:56→19:35)
[2023-02-21] MEDS: FOLIC ACID 1 MG TAB PO SCH (08:56)
[2023-02-21] MEDS: CHOLECALCIFEROL 1,000 UNITS 25 MCG TAB PO SCH (08:56)
[2023-02-21] MEDS: METOPROLOL SUCC 50MG EXT REL TAB PO SCH (08:56)
[2023-02-21] MEDS: SPIRONOLACTONE 100 MG TAB PO SCH (08:56)
[2023-02-21] MEDS: metOLazone 5 MG TABLET PO SCH (08:56)
[2023-02-21] MEDS: FAMOTIDINE 20 MG TAB PO SCH (08:56)
[2023-02-21] MEDS: LACTULOSE SYRUP 20 GM/30 ML UDC PO SCH ×3 (08:57→17:03)
--- NOTE | 2023-02-21 09:05 | Hospitalist Progress Note ---
Date of Service February 21, 2023 Assessment & Plan (1) Volume overload: Plan: Has had significant volume overload/swelling/weight gain since discharge on 01/28, BNP elevated to 709 (highest it has ever been) Likely due to only taking bumex once daily but had been taking his spironolactone 100mg daily Patient has had very little daily urine output on daily Bumex dosing, was recommended for admission by Dr. Giraldo of Nephrology as she has been following outpatient Nephrology following Continue metolazone 5 mg in a.m. and Bumex 4 mg IV b.i.d., aim for net negative, continue to monitor urine output, renal function and electrolytes closely. Nephrology stated they may have to consider ultrafiltration to improve LE edema. This was discussed in detail with Mustapha and his at bedside, verbalized understanding. Nephrology stated that if started on ultrafiltration at dialysis it will be most likely permanent and patient is aware. Per nephrology if renal functions worsen over the weekend will make decision by Friday about starting dialysis on Friday. GALE 91686 units x 1 today (2) Acute kidney injury superimposed on CKD: Plan: Nephrology following (see above note) Reviewed BMP, slight improvement in renal function Recheck BMP in AM Avoid nephrotoxins/renal dose meds as possible (3) Anemia: Plan: chronic, hx CML following w/ CCP Checked iron panel, venofer as above by nephrology 4 doses B12 wnl, Folate low prior and continues on supplementation (improved from last month, not on home med list but pt states had been taking) Fecal occult NEGATIVE (4) Cirrhosis: Plan: Has a known history , denies ETOH Liver US w/ small amt ascites --> not having abdominal pain GI consulted -- outpt f/u recs. Serological workup pending outpt f/u Monitor LFTs, avoid all alcohol Bilirubin trending down Now with Hepatic encephalopathy Rx Lactulose Rx and need to titrate 2-4 loose BMs daily will repeat NH3 in AM (5) S/P ablation of atrial fibrillation: Plan: Stable and chronic No currently on anticoagulation -- EKG on admit NSR, L anterior fascicular block, RBBB Continue metoprolol (6) CML (chronic myelocytic leukemia): Plan: Follow[facility], they are currently monitoring (7) Hypothyroidism: Plan: Stable and chronic Continue levothyroxine (8) Hypertension: Plan: Stable and chronic Continue metoprolol w. hold parameters (9) GERD (gastroesophageal reflux disease): Plan: Stable and chronic Daily famotidine while admitted no sx reported currently (10) Vitamin D deficiency: Plan: replacement ordered, continue at d/c (11) Folate deficiency: Plan: prior low dec 2022, repeat ordered and replacement Lymphedema -- Wound RN consulted -- Seen w/ wound RN -- amlactin ordered NON TENDER/NO LEUKOCYTOSIS or fever Monitor for any infection, just completed course Zosyn for LE cellulitis Blood cultures - Negative at 48 hours Admission and Anticipated Discharge Date Admission Date: February 12, 2023 Subjective Mustapha was seen and evaluated this morning. 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 Patient was started on Lactulose, repeat labs - NH3 103 Review of Systems Review of Systems: Patient denies any chest pain, SOB, nausea abdominal pain, diarrhea or constipation. Still with lower extremity swelling/lymphedema Physical Exam Constitutional: + morbidly obese and + lethargic; not in distress Neck: trachea midline, no thyromegaly Respiratory: normal respiratory effort, lungs clear to auscultation Cardiovascular: Rate/Rhythm: regular rate Heart Sounds: + murmur Extremities: + edema Gastrointestinal (Abdomen): normal bowel sounds, soft, nontender, no hepatosplenomegaly Neurologic: +asterixis Psychiatric: A+Ox3, euthymic affect Lymphatic: + lymphedema Results & Data Results & Data Vital Signs (Past 12 Hours) Vital Signs Temp Pulse Resp BP Pulse Ox O2 Del Method 02/21/23 06:49 36.6 C 76 18 124/63 97 Room Air Laboratory Results Abnormal lab results 02/20/23 02/20/23 02/21/23 Range/Units 20:16 22:03 09:02 WBC (4.8-10.8) K/ul RBC (4.70-6.10) M/uL Hgb (14.0-18.0) g/dl Hct (42.0-52.0) % MCV (80.0-100.0) fL MCH (25.0-34.0) pg RDW Std Deviation (36.4-46.3) fL RDW Coeff of Howie (11.5-14.5) % Sodium 132 L (136-145) mmol/L Chloride 93 L (98-107) mmol/L BUN 69 H (6-23) mg/dl Creatinine 4.49 H D (0.6-1.4) mg/dl Glucose 132 H (70-99(Fasting)) mg/dl POC Glucose 140 H (70-99) mg/dl Ammonia 114.0 H (18-72) umol/L 02/21/23 02/21/23 Range/Units 09:02 09:02 WBC 12.21 H (4.8-10.8) K/ul RBC 2.82 L (4.70-6.10) M/uL Hgb 9.7 L (14.0-18.0) g/dl Hct 28.5 L (42.0-52.0) % MCV 101.1 H (80.0-100.0) fL MCH 34.4 H (25.0-34.0) pg RDW Std Deviation 60.4 H (36.4-46.3) fL RDW Coeff of Howie 16.4 H (11.5-14.5) % Sodium (136-145) mmol/L Chloride (98-107) mmol/L BUN (6-23) mg/dl Creatinine (0.6-1.4) mg/dl Glucose (70-99(Fasting)) mg/dl POC Glucose (70-99) mg/dl Ammonia 103.0 H (18-72) umol/L PG Care Time/CCT Total # of Minutes Spent Total Time Spent with Patient: Total time spent is greater than 50% in coordination of care (as documented) at patient's floor/unit and/or counseling patient: Coding Level of Care Code 20229 SUB INP/OBS CARE 2/35MIN Diagnoses Volume overload E87.70 Acute kidney injury superimposed on CKD N17.9; N18.9 Anemia D64.9 Anemia type: unspecified type Cirrhosis K74.60 S/P ablation of atrial fibrillation Z98.890; Z86.79 CML (chronic myelocytic leukemia) C92.10 Hypothyroidism E03.9 Hypertension I10 GERD (gastroesophageal reflux disease) K21.9 Vitamin D deficiency E55.9 Folate deficiency E53.8 (3) Anemia Anemia type: unspecified type Qualified Code(s): D64.9 - Anemia, unspecified
--- NOTE | 2023-02-21 09:44 | Nephrology Progress Note ---
Date of Service February 21, 2023 Assessment & Plan (1) Acute kidney injury superimposed on CKD: (2) Anemia: (3) Bilateral edema of lower extremity: (4) Hyponatremia: (5) Hypertension: Plan 67 year old male the history of stage III A CKD baseline creatinine around 1.5- 1.6 in the setting of high-dose diuretic use for chronic lower extremity lymphedema and prior history of repeated episodes of ANNA. No significant proteinuria hematuria. Prior renal imaging was otherwise unremarkable. 2D echo previously showed EF 60-65% with moderate LVH with history of hypertension. Recently was admitted to the hospital with lower extremity cellulitis and had ANNA and diuretics was on hold with decent urine output. On discharge he was started back on Bumex 1 mg daily but as an outpatient lab showed kidney function worsening as well as worsening lower extremity edema and volume overload prompting readmission on 02/13/2023. On admission creatinine was 2.3, his baseline weight around 270-275 lb but on admission his weight was 309 lb. Restarted on higher dose of Bumex 40 mg IV twice a day. Since admission he was 4 L negative but rapid worsening of kidney function noted, electrolyte acceptable. Noted to have Cirrhosis on CT with h/o fatty liver for >10 years, possibly due to [place]. Lab slow progressive improvement in creatinine down to 4.5, BUN stable, electrolyte acceptable. Continues to have great urine output improved net 2 L negative on metolazone and slight improvement in abdominal distension but lower extremity edema is hard to advanced practice provider with significant lymphedema. for his symptoms could be due to combination of factors including cirrhosis, elevated ammonia, A KI and persistent intravascular volume depletion with aggressive diuresis as well as anemia. --Continue metolazone 5 mg in a.m. in addition to Bumex 4 mg IV b.i.d., as he is responding to that with net -2 L. would continue that with strict monitoring of intake and output. Other option would be to consider ultrafiltration however in his case I am worried that if I start him on ultrafiltration at dialysis it will be most likely permanent. -- For now will continue with diuretics as renal function has been slowly improving over last 2 days and responding well with metolazone with persistent ly net negative more than 2 L last 3 days, but if renal function worsen over the weekend, will decide by Friday about starting on dialysis by [facility], in that case will need to set up outpt dialysis at [facility]. Mustapha is agreeable to consider dialysis here if needed. -- check renal function and electrolyte tomorrow. --GALE 94493 units x 1 dose given on 02/20/23 ( adequate iron store) --discussed in detail with Mustapha and his over telephone and answered all q. will follow. Admission and Anticipated Discharge Date Admission Date: February 12, 2023 Subjective Mustapha was seen and evaluated this morning. Overall he has been feeling poorly, tired and mostly sitting since yesterday with some hand tremor and ammonia level came back elevated at 121 with recent diagnosis of cirrhosis. He was started on lactulose yesterday with slight improvement in ammonia this morning. Denies any confusion. Slow improvement in renal function, creatinine 4.5, BUN stable, electrolyte acceptable. Net >2 L negative. Abdominal distension slightly improved. Review of Systems Review of Systems: detailed review of system was otherwise unremarkable. Physical Exam Constitutional: WD/WN, vitals as above + ill appearing and comfortable; no acute distress Eyes: + anicteric sclerae Neck: normal visual inspection Respiratory: Auscultation: lungs clear to auscultation bilaterally Cardiovascular: Rate/Rhythm: regular rate and regular rhythm Heart Sounds: normal S1 and normal S2 Extremities: + edema (chronic b/l lymphedema) Gastrointestinal (Abdomen): Inspection/Auscultation: + abdomen distended and + abdominal edema (slight improvement) Skin: + crusts Neurologic: no focal motor deficits Motor/Sensory: + tremor and + asterixis Psychiatric: Orientation: alert and oriented x 3 Affect: euthymic affect Results & Data Vital Signs (Past 12 Hours) Vital Signs Temp Pulse Resp BP Pulse Ox O2 Del Method 02/21/23 06:49 36.6 C 76 18 124/63 97 Room Air PG Care Time/CCT Total # of Minutes Spent Total Time Spent with Patient: Total time spent is greater than 50% in coordination of care (as documented) at patient's floor/unit and/or counseling patient: Coding Level of Care Code 43691 SUB INP/OBS CARE 3/50MIN Diagnoses Acute kidney injury superimposed on CKD N17.9; N18.9 Anemia D64.9 Anemia type: unspecified type Bilateral edema of lower extremity R60.0 Hyponatremia E87.1 Hypertension I10 (2) Anemia Anemia type: unspecified type Qualified Code(s): D64.9 - Anemia, unspecified
[2023-02-21 09:47] LABS: Hematocrit (blood only) 28.5 % (42.0-52.0); Hemoglobin 9.7 g/dl (14.0-18.0); Mean Corpuscular Hemoglobin 34.4 pg (25.0-34.0); Mean Corpuscular Volume 101.1 fL (80.0-100.0); Mean Platelet Volume 10.4 fL (9.4-12.4); Platelet Count 131 K/uL (130-400); RDW Coefficient of Variation 16.4 % (11.5-14.5); RDW Standard Deviation 60.4 fL (36.4-46.3); Red Blood Count 2.82 M/uL (4.70-6.10); White Blood Count 12.21 K/ul (4.8-10.8)
[2023-02-21 10:02] LABS: Albumin Level 3.4 gm/dl (3.4-5.0); BUN Creatinine Ratio 15.4 (10-20); Calcium 9.9 mg/dl (8.6-10.3); Creatinine Clr Calc Pharmacy 22.7 ml/min; Est GFR (African American) 14.8 ml/min; Est GFR (Non-African American) 12.8 ml/min; Potassium 4.8 mmol/L (3.5-5.1)
[2023-02-21] MEDS: BUMETANIDE 4 MG in SYRINGE 0 ML IV SCH ×2 (10:10→17:21)
[2023-02-21] MEDS: allopurinoL 300 MG TAB PO SCH (13:09)
[2023-02-22] MEDS: HEPARIN SOD 5,000 UNIT/0.5 ML VIAL SQ SCH ×3 (05:49→19:56)
[2023-02-22] MEDS: LEVOTHYROXINE SODIUM 137 MCG TABLET PO SCH (05:49)
[2023-02-22 06:49] LABS: Hematocrit (blood only) 29.4 % (42.0-52.0); Hemoglobin 10.2 g/dl (14.0-18.0); Mean Corpuscular Hemoglobin 34.5 pg (25.0-34.0); Mean Corpuscular Hgb Conc 34.7 g/dL (32.0-36.0); Mean Corpuscular Volume 99.3 fL (80.0-100.0); Mean Platelet Volume 10.6 fL (9.4-12.4); Platelet Count 141 K/uL (130-400); RDW Coefficient of Variation 15.9 % (11.5-14.5); RDW Standard Deviation 56.6 fL (36.4-46.3); Red Blood Count 2.96 M/uL (4.70-6.10); White Blood Count 10.59 K/ul (4.8-10.8)
[2023-02-22 07:01] LABS: Albumin Level 3.4 gm/dl (3.4-5.0); BUN Creatinine Ratio 16.1 (10-20); Creatinine Clr Calc Pharmacy 22.6 ml/min; Est GFR (African American) 15.9 ml/min; Est GFR (Non-African American) 13.8 ml/min; Phosphorus 4.3 mg/dl (2.5-4.9); Potassium 4.6 mmol/L (3.5-5.1)
[2023-02-22 07:39] LABS: INR 1.5 (0.9-1.1); Prothrombin Time 16.1 Seconds (9.0-12.0)
[2023-02-22] MEDS: metOLazone 5 MG TABLET PO SCH (09:07)
[2023-02-22] MEDS: CHOLECALCIFEROL 1,000 UNITS 25 MCG TAB PO SCH (09:07)
[2023-02-22] MEDS: MAGNESIUM OXIDE 400 MG TAB PO SCH ×2 (09:09→19:58)
[2023-02-22] MEDS: SPIRONOLACTONE 100 MG TAB PO SCH (09:09)
[2023-02-22] MEDS: METOPROLOL SUCC 50MG EXT REL TAB PO SCH (09:09)
[2023-02-22] MEDS: FAMOTIDINE 20 MG TAB PO SCH (09:09)
[2023-02-22] MEDS: FOLIC ACID 1 MG TAB PO SCH (09:09)
--- NOTE | 2023-02-22 09:21 | Hospitalist Progress Note ---
Date of Service February 22, 2023 Assessment & Plan (1) Volume overload: Plan: Has had significant volume overload/swelling/weight gain since discharge on 01/28, BNP elevated to 709 (highest it has ever been) Likely due to only taking bumex once daily but had been taking his spironolactone 100mg daily Patient has had very little daily urine output on daily Bumex dosing, was recommended for admission by Dr. Giraldo of Nephrology as she has been following outpatient Nephrology following Continue metolazone 5 mg in a.m. and Bumex 4 mg IV b.i.d., aim for net negative (-3000cc today), continue to monitor urine output, renal function and electrolytes closely (electrolytes normal). Nephrology stated they may have to consider ultrafiltration to improve LE edema. This was discussed in detail with Mustapha and his . Updated via the phone, verbalized understanding. Nephrology stated that if started on ultrafiltration at dialysis it will be most likely permanent and patient is aware. Per nephrology if renal functions worsen over the weekend will make decision by Friday about starting dialysis on Friday. Patient encouraged to elevate extremities for lymphedema/dependent edema (2) Acute kidney injury superimposed on CKD: Plan: Nephrology following- to make decision Friday regarding ultrafiltration/dialysis Reviewed BMP, slight improvement in renal function Cr 4.23 (4.49) Recheck BMP in AM Avoid nephrotoxins/renal dose meds as possible (3) Anemia: Plan: chronic, hx CML following w/ CCP Checked iron panel, venofer x4 doses this admission per nephrology B12 wnl, Folate low prior and continues on supplementation (improved from last month, not on home med list but pt states had been taking) Fecal occult NEGATIVE Reviewed CBC Hgb improved to 10.2 (9.7), WBC 10.5 (12.2), PLT 141 (131) (4) Cirrhosis: Plan: Has a known history , denies ETOH Liver US w/ small amt ascites --> not having abdominal pain GI consulted -- outpt f/u recs. Serological workup pending outpt f/u Monitor LFTs, avoid all alcohol Bilirubin trending down Now with Hepatic encephalopathy Nh3 99 (103) Rx Lactulose Rx and need to titrate 2-4 loose BMs daily will repeat NH3 in AM LFTs in AM AFP to consider adding Xifaxan Discussed with will need to have GI/Hepatology follow up q 6 months with U/S and AFP (5) S/P ablation of atrial fibrillation: Plan: Stable and chronic No currently on anticoagulation -- EKG on admit NSR, L anterior fascicular block, RBBB Continue metoprolol Unclear why patient not on AC; clarify tomorrow, was on AC as recently as September (Eliquis) (6) CML (chronic myelocytic leukemia): Plan: Follows [facility], they are currently monitoring (7) Hypothyroidism: Plan: Stable and chronic Continue levothyroxine (8) Hypertension: Plan: Stable and chronic Continue metoprolol w. hold parameters (9) GERD (gastroesophageal reflux disease): Plan: Stable and chronic Daily famotidine while admitted no sx reported currently (10) Vitamin D deficiency: Plan: replacement ordered, continue at d/c (11) Folate deficiency: Plan: prior low dec 2022, repeat ordered and replacement Lymphedema -- Wound RN consulted -- Seen w/ wound RN -- amlactin ordered NON TENDER/NO LEUKOCYTOSIS or fever Monitor for any infection, just completed course Zosyn for LE cellulitis Blood cultures - Negative at 48 hours Admission and Anticipated Discharge Date Admission Date: February 12, 2023 Supervising Physician Co-Signing Physician Notes PA Supervision Note: I did not personally see or examine the patient. I verified all raza points, reviewed chart, and agree with SHERRON Jang with the following exceptions and/or additions: Continue diuresis and renal monitoring, Nephrology consulted and involved, may ultimately need dialysis will see how renal function does into tomorrow and decide from that point in concurrence with patient and Nephrology. Having good UOP, large net negative today, electrolytes stable. Tomorrow will need to clarify why patient is no longer on apixaban for AFib/Flutter, has had ablation but in record Cardio note 09/2022 patient was noted to be on Eliquis at that time. Plan otherwise as described above. Subjective Mustapha was seen and evaluated this morning, he is sitting uproght in the recliner. Nursing is going t move him to a recliner to get his feet elevated. He had 3 loose BMs yesterday. He will continue the lactulose QID and can titrate to maintaine 2-4 loose BMs daily. Nephrology following and to decide tomorrow on ultrafiltration/dialysis. Nursing noted that he has skin breakdown from his Soto bag strap Review of Systems Review of Systems: Patient denies any chest pain, SOB, nausea abdominal pain, constipation. Still with lower extremity swelling/lymphedema. + fatigue Physical Exam Constitutional: + morbidly obese and + lethargic; not in distress Neck: trachea midline, no thyromegaly Respiratory: normal respiratory effort, lungs clear to auscultation Cardiovascular: Rate/Rhythm: regular rate Heart Sounds: + murmur Extremities: + edema Gastrointestinal (Abdomen): normal bowel sounds, soft, nontender, no hepatosplenomegaly abdomen soft and less distended today Skin: Bilateral lower legs with lymphedema and skin breakdown from strap of soto bag - dressing applied Per nursing wound following Neurologic: Minimal asterixis Psychiatric: A+Ox3, euthymic affect Lymphatic: + lymphedema Results & Data Results & Data Vital Signs (Past 12 Hours) Vital Signs Temp Pulse Resp BP Pulse Ox O2 Del Method 02/22/23 08:02 36.5 C 71 18 110/54 L 95 Room Air 02/21/23 23:35 36.6 C 73 18 117/60 97 Room Air Laboratory Results Abnormal lab results 02/21/23 02/21/23 02/21/23 Range/Units 09:02 09:02 09:02 WBC 12.21 H (4.8-10.8) K/ul RBC 2.82 L (4.70-6.10) M/uL Hgb 9.7 L (14.0-18.0) g/dl Hct 28.5 L (42.0-52.0) % MCV 101.1 H (80.0-100.0) fL MCH 34.4 H (25.0-34.0) pg RDW Std Deviation 60.4 H (36.4-46.3) fL RDW Coeff of Howie 16.4 H (11.5-14.5) % PT (9.0-12.0) Seconds INR (0.9-1.1) Sodium 132 L (136-145) mmol/L Chloride 93 L (98-107) mmol/L BUN 69 H (6-23) mg/dl Creatinine 4.49 H D (0.6-1.4) mg/dl Glucose 132 H (70-99(Fasting)) mg/dl Ammonia 103.0 H (18-72) umol/L 02/22/23 02/22/23 02/22/23 Range/Units 06:21 06:21 06:21 WBC (4.8-10.8) K/ul RBC 2.96 L (4.70-6.10) M/uL Hgb 10.2 L (14.0-18.0) g/dl Hct 29.4 L (42.0-52.0) % MCV (80.0-100.0) fL MCH 34.5 H (25.0-34.0) pg RDW Std Deviation 56.6 H (36.4-46.3) fL RDW Coeff of Howie 15.9 H (11.5-14.5) % PT 16.1 H (9.0-12.0) Seconds INR 1.5 H (0.9-1.1) Sodium 133 L (136-145) mmol/L Chloride 93 L (98-107) mmol/L BUN 68 H (6-23) mg/dl Creatinine 4.23 H (0.6-1.4) mg/dl Glucose 112 H (70-99(Fasting)) mg/dl Ammonia (18-72) umol/L 02/22/23 Range/Units 06:21 WBC (4.8-10.8) K/ul RBC (4.70-6.10) M/uL Hgb (14.0-18.0) g/dl Hct (42.0-52.0) % MCV (80.0-100.0) fL MCH (25.0-34.0) pg RDW Std Deviation (36.4-46.3) fL RDW Coeff of Howie (11.5-14.5) % PT (9.0-12.0) Seconds INR (0.9-1.1) Sodium (136-145) mmol/L Chloride (98-107) mmol/L BUN (6-23) mg/dl Creatinine (0.6-1.4) mg/dl Glucose (70-99(Fasting)) mg/dl Ammonia 99.0 H (18-72) umol/L PG Care Time/CCT Total # of Minutes Spent Total Time Spent with Patient: Total time spent is greater than 50% in coordination of care (as documented) at patient's floor/unit and/or counseling patient: Coding Level of Care Code 38894 SUB INP/OBS CARE 3/50MIN Diagnoses Volume overload E87.70 Acute kidney injury superimposed on CKD N17.9; N18.9 Anemia D64.9 Anemia type: unspecified type Cirrhosis K74.60 S/P ablation of atrial fibrillation Z98.890; Z86.79 CML (chronic myelocytic leukemia) C92.10 Hypothyroidism E03.9 Hypertension I10 GERD (gastroesophageal reflux disease) K21.9 Vitamin D deficiency E55.9 Folate deficiency E53.8 (3) Anemia Anemia type: unspecified type Qualified Code(s): D64.9 - Anemia, unspecified
[2023-02-22] MEDS: BUMETANIDE 4 MG in SYRINGE 0 ML IV SCH ×2 (10:00→17:14)
--- NOTE | 2023-02-22 11:29 | Nephrology Progress Note ---
Date of Service February 22, 2023 Assessment & Plan (1) Acute kidney injury superimposed on CKD: Plan: Non-oliguric. Adequate urine output. Creatinine improving. Electrolytes acceptable. Medications appropriate for kidney function. CKD III A1. Baseline creatinine around 1.5-1.6. ANNA hemodynamic in the setting of cirrhosis, intravascular volume depletion, right sided CHF. Given frailty and cirrhosis, Mr. Bashir is a very poor candidate for dialysis. Thankfully, there is no emergent indication at this time. (2) Anemia: Plan: Epogen 22185 units provided 02/20/23. Iron profile acceptable. (3) Bilateral edema of lower extremity: Plan: Combination of lymphedema, right sided CHF, and venous insufficiency. Continue metolazone 5 mg daily + Bumex 4 mg BID + Aldactone as Rx. (4) Hyponatremia: Plan: Free water restriction to 1 L/d. (5) Cirrhosis: Plan: MELD 30. Prognosis is unfortunately very poor. Consider palliative care consultation to assist with goals of care. Admission and Anticipated Discharge Date Admission Date: February 12, 2023 Subjective No acute events overnight. Resting comfortably in bedside chair this AM. Legs elevated. Mr. Bashir reports improvement in edema. He is breathing comfortably. No lightheadedness or dizziness. No chest pain or palpitations. Good urine output. Review of Systems Review of Systems: All systems reviewed & are unremarkable except as noted in HPI & below Physical Exam Constitutional: WD/WN, vitals as above + frail appearing and comfortable; no acute distress Eyes: + anicteric sclerae Neck: normal visual inspection Respiratory: Auscultation: lungs clear to auscultation bilaterally Cardiovascular: Rate/Rhythm: regular rate and regular rhythm Heart Sounds: normal S1 and normal S2 Extremities: + edema (chronic b/l lymphedema) Gastrointestinal (Abdomen): Inspection/Auscultation: + abdomen distended and + abdominal edema (slight improvement) Skin: + turgor decreased and + jaundice Neurologic: no focal motor deficits Motor/Sensory: + tremor Psychiatric: Orientation: alert and oriented to person Affect: euthymic affect Results & Data Vital Signs (Past 12 Hours) Vital Signs Temp Pulse Resp BP Pulse Ox O2 Del Method 02/22/23 08:00 Room Air 02/22/23 08:02 36.5 C 71 18 110/54 L 95 Room Air 02/21/23 23:35 36.6 C 73 18 117/60 97 Room Air Laboratory Results Laboratory Results - last 24 hr 02/22/23 02/22/23 02/22/23 06:21 06:21 06:21 WBC 10.59 RBC 2.96 L Hgb 10.2 L Hct 29.4 L MCV 99.3 MCH 34.5 H MCHC 34.7 RDW Std Deviation 56.6 H RDW Coeff of Howie 15.9 H Plt Count 141 MPV 10.6 PT 16.1 H INR 1.5 H Sodium 133 L Potassium 4.6 Chloride 93 L Carbon Dioxide 30 Anion Gap 10 BUN 68 H Creatinine 4.23 H Est Cr Clr Drug Dosing 22.6 Est GFR ( Amer) 15.9 Est GFR (Non-Af Amer) 13.8 BUN/Creatinine Ratio 16.1 Glucose 112 H Calcium 10.0 Phosphorus 4.3 Ammonia Albumin 3.4 02/22/23 06:21 WBC RBC Hgb Hct MCV MCH MCHC RDW Std Deviation RDW Coeff of Howie Plt Count MPV PT INR Sodium Potassium Chloride Carbon Dioxide Anion Gap BUN Creatinine Est Cr Clr Drug Dosing Est GFR ( Amer) Est GFR (Non-Af Amer) BUN/Creatinine Ratio Glucose Calcium Phosphorus Ammonia 99.0 H Albumin PG Care Time/CCT Total # of Minutes Spent Total Time Spent with Patient: Total time spent is greater than 50% in coordination of care (as documented) at patient's floor/unit and/or counseling patient: Coding Level of Care Code 91999 SUB INP/OBS CARE 3/50MIN Diagnoses Acute kidney injury superimposed on CKD N17.9; N18.9 Anemia D64.9 Anemia type: unspecified type Bilateral edema of lower extremity R60.0 Hyponatremia E87.1 Cirrhosis K74.60 (2) Anemia Anemia type: unspecified type Qualified Code(s): D64.9 - Anemia, unspecified
[2023-02-22] MEDS: allopurinoL 300 MG TAB PO SCH (12:21)
[2023-02-22] MEDS: LACTULOSE SYRUP 20 GM/30 ML UDC PO SCH (21:47)
[2023-02-23] MEDS: HEPARIN SOD 5,000 UNIT/0.5 ML VIAL SQ SCH ×3 (05:43→19:36)
[2023-02-23] MEDS: LEVOTHYROXINE SODIUM 137 MCG TABLET PO SCH (05:43)
[2023-02-23 06:46] LABS: Albumin Level 3.2 gm/dl (3.4-5.0); BUN Creatinine Ratio 17.2 (10-20); Bilirubin Direct 1.2 mg/dl (0-0.2); Bilirubin,Total 3.9 mg/dl (0.2-1.0); Creatinine Clr Calc Pharmacy 24.9 ml/min; Est GFR (African American) 17.9 ml/min; Est GFR (Non-African American) 15.5 ml/min; Potassium 4.4 mmol/L (3.5-5.1); Total Protein 7.5 gm/dl (6.0-8.3)
[2023-02-23 06:51] LABS: Hematocrit (blood only) 28.8 % (42.0-52.0); Hemoglobin 10.3 g/dl (14.0-18.0); Mean Corpuscular Hemoglobin 35.9 pg (25.0-34.0); Mean Corpuscular Hgb Conc 35.8 g/dL (32.0-36.0); Mean Corpuscular Volume 100.3 fL (80.0-100.0); Mean Platelet Volume 10.5 fL (9.4-12.4); Platelet Count 154 K/uL (130-400); RDW Coefficient of Variation 16.2 % (11.5-14.5); RDW Standard Deviation 58.8 fL (36.4-46.3); Red Blood Count 2.87 M/uL (4.70-6.10); White Blood Count 12.18 K/ul (4.8-10.8)
[2023-02-23 06:55] LABS: INR 1.7 (0.9-1.1); Prothrombin Time 17.2 Seconds (9.0-12.0)
[2023-02-23] MEDS: CHOLECALCIFEROL 1,000 UNITS 25 MCG TAB PO SCH (09:22)
[2023-02-23] MEDS: METOPROLOL SUCC 50MG EXT REL TAB PO SCH (09:22)
[2023-02-23] MEDS: FOLIC ACID 1 MG TAB PO SCH (09:22)
[2023-02-23] MEDS: MAGNESIUM OXIDE 400 MG TAB PO SCH ×2 (09:22→19:35)
[2023-02-23] MEDS: FAMOTIDINE 20 MG TAB PO SCH (09:23)
[2023-02-23] MEDS: SPIRONOLACTONE 100 MG TAB PO SCH (09:23)
[2023-02-23] MEDS: metOLazone 5 MG TABLET PO SCH (09:44)
[2023-02-23] MEDS: LACTULOSE SYRUP 30 GM/45 ML UDP PO SCH ×3 (09:44→19:36)
[2023-02-23] MEDS: BUMETANIDE 4 MG in SYRINGE 0 ML IV SCH ×2 (10:26→17:23)
--- NOTE | 2023-02-23 11:30 | Nephrology Progress Note ---
Date of Service February 23, 2023 Assessment & Plan (1) Acute kidney injury superimposed on CKD: Plan: Non-oliguric. Adequate urine output. Creatinine improving. Electrolytes acceptable. Medications appropriate for kidney function. CKD III A1. Baseline creatinine around 1.5-1.6. ANNA hemodynamic in the setting of cirrhosis, intravascular volume depletion, right sided CHF. Given frailty and cirrhosis, Mr. Bashir is a very poor candidate for dialysis. Thankfully, there is no emergent indication at this time. (2) Anemia: Plan: Epogen 90727 units provided 02/20/23. Iron profile acceptable. (3) Bilateral edema of lower extremity: Plan: Combination of lymphedema, right sided CHF, and venous insufficiency. Continue metolazone 5 mg daily + Bumex 4 mg BID + Aldactone as Rx. (4) Hyponatremia: Plan: Free water restriction to 1 L/d. (5) Cirrhosis: Plan: MELD 31. Prognosis is unfortunately very poor. Consider palliative care consultation to assist with goals of care. Admission and Anticipated Discharge Date Admission Date: February 12, 2023 Subjective No acute events overnight. No complaints this AM. Review of Systems Review of Systems: All systems reviewed & are unremarkable except as noted in HPI & below Physical Exam Constitutional: WD/WN, vitals as above + frail appearing and comfortable; no acute distress Eyes: + anicteric sclerae Neck: normal visual inspection Respiratory: Auscultation: lungs clear to auscultation bilaterally Cardiovascular: Rate/Rhythm: regular rate and regular rhythm Heart Sounds: normal S1 and normal S2 Extremities: + edema (chronic b/l lymphedema) Gastrointestinal (Abdomen): Inspection/Auscultation: + abdomen distended and + abdominal edema (slight improvement) Skin: + turgor decreased, + jaundice and + crusts Neurologic: no focal motor deficits Motor/Sensory: + tremor and + asterixis Psychiatric: Orientation: alert Affect: euthymic affect Results & Data Vital Signs (Past 12 Hours) Vital Signs Temp Pulse Resp BP Pulse Ox O2 Del Method 02/23/23 08:25 36.9 C 70 18 122/61 96 Room Air Laboratory Results Laboratory Results - last 24 hr 02/23/23 02/23/23 02/23/23 06:08 06:09 06:09 WBC 12.18 H RBC 2.87 L Hgb 10.3 L Hct 28.8 L MCV 100.3 H MCH 35.9 H MCHC 35.8 RDW Std Deviation 58.8 H RDW Coeff of Howie 16.2 H Plt Count 154 MPV 10.5 PT 17.2 H INR 1.7 H Sodium Potassium Chloride Carbon Dioxide Anion Gap BUN Creatinine Est Cr Clr Drug Dosing Est GFR ( Amer) Est GFR (Non-Af Amer) BUN/Creatinine Ratio Glucose Calcium Total Bilirubin Direct Bilirubin AST ALT Alkaline Phosphatase Ammonia 105.0 H Total Protein Albumin 02/23/23 06:09 WBC RBC Hgb Hct MCV MCH MCHC RDW Std Deviation RDW Coeff of Howie Plt Count MPV PT INR Sodium 135 L Potassium 4.4 Chloride 92 L Carbon Dioxide 34 H Anion Gap 9 BUN 66 H Creatinine 3.84 H D Est Cr Clr Drug Dosing 24.9 Est GFR ( Amer) 17.9 Est GFR (Non-Af Amer) 15.5 BUN/Creatinine Ratio 17.2 Glucose 121 H Calcium 10.0 Total Bilirubin 3.9 H Direct Bilirubin 1.2 H AST 19 ALT 9 Alkaline Phosphatase 60 Ammonia Total Protein 7.5 Albumin 3.2 L PG Care Time/CCT Total # of Minutes Spent Total Time Spent with Patient: Total time spent is greater than 50% in coordination of care (as documented) at patient's floor/unit and/or counseling patient: Coding Level of Care Code 68378 SUB INP/OBS CARE 3/50MIN Diagnoses Acute kidney injury superimposed on CKD N17.9; N18.9 Anemia D64.9 Anemia type: unspecified type Bilateral edema of lower extremity R60.0 Hyponatremia E87.1 Cirrhosis K74.60 (2) Anemia Anemia type: unspecified type Qualified Code(s): D64.9 - Anemia, unspecified
[2023-02-23] MEDS: allopurinoL 300 MG TAB PO SCH (11:35)
--- NOTE | 2023-02-23 13:56 | Hospitalist Progress Note ---
Date of Service February 23, 2023 Assessment & Plan (1) Volume overload: Plan: Acute/unstable - high risk - Has had significant volume overload/swelling/weight gain since discharge on 01/28, BNP elevated to 709 (highest it has ever been) - Likely due to only taking bumex once daily but had been taking his spironolactone 100mg daily - Nephrology following, now on Bumex 4mg IV BID + Metolazone 5mg daily - Aim for net negative (-3000cc today), continue to monitor urine output, renal function and electrolytes closely (electrolytes normal). - Nephrology stated they may have to consider ultrafiltration to improve LE edema. This was discussed in detail with Mustapha and his . Nephrology stated that if started on ultrafiltration at dialysis it will be most likely permanent and patient is aware. - At this point, nephrology feels he is poor candidate for dialysis d/t frailty and cirrhotic disease - Patient encouraged to elevate extremities for lymphedema/dependent edema - was able to get a recliner to elevated feet (2) Acute kidney injury superimposed on CKD: Plan: Acute/unstable - high risk - Nephrology following- appreciate assistance - Reviewed chemistry panel today, continues to have slight improvement in creatinine- 3.84 (4.23) - Avoid nephrotoxins/renal dose meds as possible - No plans to initiate dialysis per nephrology note from 02/22 (3) Cirrhosis: Plan: Acute on chronic/unstable - high risk - Has a known history, denies ETOH - Liver US w/ small amt ascites - not having abdominal pain - GI consulted -- outpt f/u recs. Serological workup pending outpt f/u - Reviewed CMP today - LFTs normal - Total Bilirubin trending back up, today 3.9 (yesterday 3.5) - Pt now with Hepatic encephalopathy - Reviewed Nh3, today 105 (yesterday 103) - Increase Lactulose to 30g TID - repeat ammonia level in AM - Will consider adding Xifaxan - Discussed with will need to have GI/Hepatology follow up q 6 months with U/S and AFP - MELD score 31 - poor prognosis, will consider palliative med eval, will d/w pt's - Did broach the subject of code status today with patient, he repeatedly kept stating "he didn't know" when asked if he would like to proceed with a full resuscitation in the event of an acute cardiopulmonary arrest - May need to consider repeat limited US to quantify acites (4) Anemia: Plan: Chronic/Stable - hx CML following w/ CCP - Checked iron panel, venofer x4 doses this admission per nephrology - B12 wnl, Folate low prior and continues on supplementation (improved from last month, not on home med list but pt states had been taking) - Fecal occult NEGATIVE - Reviewed CBC Hgb improved to 10.2 (9.7), WBC 10.5 (12.2), PLT 141 (131) (5) S/P ablation of atrial fibrillation: Plan: Stable and chronic - Not currently on anticoagulation, ablation was remote while living in [place] - EKG on admit NSR, L anterior fascicular block, RBBB - Continue metoprolol succinate 100mg daily with hold parameters - clarified was previously on AC in September d/t blood clot - Stopped d/t issues of GI bleeding - Prior to ablation was only on aspirin (6) Vitamin D deficiency: Plan: Acute/unstable - replacement ordered - continue at d/c (7) Folate deficiency: Plan: Acute/unstable - prior low dec 2022, repeat ordered and replacement (8) Lymphedema: Plan: Chronic/stable - Wound RN consulted - Seen w/ wound RN -- amlactin ordered - NON TENDER/NO LEUKOCYTOSIS or fever - Monitor for any infection, just completed course Zosyn for LE cellulitis Plan Updated patient's via phone. Will consult palliative med d/t advanced liver disease with overall poor prognosis. Above d/w Dr. Reynoso. Admission and Anticipated Discharge Date Admission Date: February 12, 2023 Subjective Patient seen on daily rounds this morning. Still seems a bit confused/out of sorts, but does answer most questions appropriately. Denies abd pain, n/v, f/c, headache, chest pain, or dyspnea. He reports having at least 3 BMs per day. Net FB -2240 mL thus far today. Physical Exam Physical Exam: GENERAL: 67 yo Well-developed, morbidly obese WM who appears older than stated age. NAD. LUNGS: Clear to auscultation bilaterally. Diminished in bases. CARDIOVASCULAR: Regular rate and rhythm with 3/6 DONI. No g/r ABDOMEN: Soft, non-tender, mild to moderate distension. Bs normoactive x 4 quad. EXTREMITIES: Dependent + pitting edema noted. Thickened/Sclerosed skin. Non- tender. Peripheral pulses +2/4. Results & Data Results & Data Vital Signs (Past 12 Hours) Vital Signs Temp Pulse Resp BP Pulse Ox O2 Del Method 02/23/23 08:25 36.9 C 70 18 122/61 96 Room Air Laboratory Results 02/23/23 06:09 02/23/23 06:09 PG Care Time/CCT Total # of Minutes Spent Total Time Spent with Patient: Total time spent is greater than 50% in coordination of care (as documented) at patient's floor/unit and/or counseling patient: Coding Level of Care Code 09042 SUB INP/OBS CARE 3/50MIN Diagnoses Volume overload E87.70 Acute kidney injury superimposed on CKD N17.9; N18.9 Cirrhosis K74.60 Anemia D64.9 Anemia type: unspecified type S/P ablation of atrial fibrillation Z98.890; Z86.79 Vitamin D deficiency E55.9 Folate deficiency E53.8 Lymphedema I89.0 (4) Anemia Anemia type: unspecified type Qualified Code(s): D64.9 - Anemia, unspecified
[2023-02-24] MEDS: HEPARIN SOD 5,000 UNIT/0.5 ML VIAL SQ SCH ×3 (05:28→23:45)
[2023-02-24] MEDS: LEVOTHYROXINE SODIUM 137 MCG TABLET PO SCH (06:02)
[2023-02-24 07:00] LABS: Basophils # (auto) 0.09 K/uL (0-0.2); Basophils % (auto) 0.8 %; Eosinophils # (auto) 0.48 K/uL (0-0.50); Eosinophils % (auto) 4.2 %; Hematocrit (blood only) 30.8 % (42.0-52.0); Hemoglobin 10.6 g/dl (14.0-18.0); Immature Granulocytes % (auto) 0.9 %; Lymphocytes # (auto) 2.22 K/uL (1.2-3.4); Lymphocytes % (auto) 19.3 %; Mean Corpuscular Hemoglobin 34.4 pg (25.0-34.0); Mean Corpuscular Hgb Conc 34.4 g/dL (32.0-36.0); Mean Platelet Volume 9.7 fL (9.4-12.4); Monocytes # (auto) 1.19 K/uL (0.11-0.59); Monocytes % (auto) 10.4 %; Neutrophils # (auto) 7.41 K/uL (1.40-6.50); Neutrophils % (auto) 64.4 %; Platelet Count 153 K/uL (130-400); RDW Coefficient of Variation 16.2 % (11.5-14.5); RDW Standard Deviation 58.9 fL (36.4-46.3); Red Blood Count 3.08 M/uL (4.70-6.10); White Blood Count 11.49 K/ul (4.8-10.8)
[2023-02-24 07:11] LABS: Albumin Globulin Ratio 0.7 (0.9-2); Albumin Level 3.3 gm/dl (3.4-5.0); BUN Creatinine Ratio 19.2 (10-20); Bilirubin,Total 4.5 mg/dl (0.2-1.0); Calcium 10.4 mg/dl (8.6-10.3); Creatinine Clr Calc Pharmacy 27.8 ml/min; Est GFR (African American) 20.5 ml/min; Est GFR (Non-African American) 17.7 ml/min; Globulin 4.5 gm/dl (2.5-4.0); Potassium 4.1 mmol/L (3.5-5.1); Total Protein 7.8 gm/dl (6.0-8.3)
[2023-02-24 07:14] LABS: INR 1.7 (0.9-1.1)
[2023-02-24] MEDS: METOPROLOL SUCC 50MG EXT REL TAB PO SCH (08:33)
[2023-02-24] MEDS: FOLIC ACID 1 MG TAB PO SCH (08:33)
[2023-02-24] MEDS: FAMOTIDINE 20 MG TAB PO SCH (08:33)
[2023-02-24] MEDS: LACTULOSE SYRUP 30 GM/45 ML UDP PO SCH ×4 (08:33→20:23)
[2023-02-24] MEDS: MAGNESIUM OXIDE 400 MG TAB PO SCH ×2 (08:33→20:24)
[2023-02-24] MEDS: metOLazone 5 MG TABLET PO SCH (08:33)
[2023-02-24] MEDS: CHOLECALCIFEROL 1,000 UNITS 25 MCG TAB PO SCH (08:33)
[2023-02-24] MEDS: SPIRONOLACTONE 100 MG TAB PO SCH (08:33)
[2023-02-24] MEDS: BUMETANIDE 4 MG in SYRINGE 0 ML IV SCH ×2 (09:18→17:32)
--- NOTE | 2023-02-24 10:23 | Nephrology Progress Note ---
Date of Service February 24, 2023 Assessment & Plan (1) Acute kidney injury superimposed on CKD: Plan: Non-oliguric. Adequate urine output. Creatinine improving. Electrolytes acceptable. Medications appropriate for kidney function. CKD III A1. Baseline creatinine around 1.5-1.6. ANNA hemodynamic in the setting of cirrhosis, intravascular volume depletion, right sided CHF. Given frailty and cirrhosis, Mr. Bashir is a very poor candidate for dialysis. Thankfully, there is no emergent indication at this time. (2) Anemia: Plan: Epogen 41877 units provided 02/20/23. Iron profile acceptable. (3) Bilateral edema of lower extremity: Plan: Combination of lymphedema, right sided CHF, and venous insufficiency. Continue metolazone 5 mg daily + Bumex 4 mg BID + Aldactone as Rx. (4) Hyponatremia: Plan: Free water restriction to 1 L/d. (5) Cirrhosis: Plan: MELD 30. Prognosis is unfortunately very poor. Consider palliative care consultation to assist with goals of care. Admission and Anticipated Discharge Date Admission Date: February 12, 2023 Subjective No acute events overnight. No complaints this AM. Mr. Bashir was sitting in his recliner with his meal tray in front of him. He had not touched any of the food. He reported no appetite. He appears more lethargic this AM. Denies pain. No fevers or chills. No dyspnea. Moving his bowels multiple times per day. Review of Systems Review of Systems: All systems reviewed & are unremarkable except as noted in HPI & below Physical Exam Constitutional: WD/WN, vitals as above + frail appearing and comfortable; no acute distress Eyes: + anicteric sclerae Neck: normal visual inspection Respiratory: Auscultation: lungs clear to auscultation bilaterally Cardiovascular: Rate/Rhythm: regular rate and regular rhythm Heart Sounds: normal S1 and normal S2 Extremities: + edema (chronic b/l lymphedema) Gastrointestinal (Abdomen): Inspection/Auscultation: + abdomen distended and + abdominal edema (slight improvement) Skin: + turgor decreased and + jaundice Neurologic: no focal motor deficits Motor/Sensory: + tremor and + asterixis Psychiatric: Orientation: alert, oriented x 3 and oriented to person Affect: euthymic affect Results & Data Vital Signs (Past 12 Hours) Vital Signs Temp Pulse Resp BP BP Pulse Ox O2 Del Method 02/24/23 07:30 36.6 C 78 18 121/62 96 Room Air 02/23/23 22:44 36.9 C 76 17 135/66 97 Room Air Laboratory Results Laboratory Results - last 24 hr 02/23/23 02/24/23 02/24/23 06:09 06:16 06:16 WBC 11.49 H RBC 3.08 L Hgb 10.6 L Hct 30.8 L MCV 100.0 MCH 34.4 H MCHC 34.4 RDW Std Deviation 58.9 H RDW Coeff of Howie 16.2 H Plt Count 153 MPV 9.7 Immature Gran % (Auto) 0.9 Neut % (Auto) 64.4 Lymph % (Auto) 19.3 [place] % (Auto) 10.4 Eos % (Auto) 4.2 Baso % (Auto) 0.8 Neut # (Auto) 7.41 H Lymph # (Auto) 2.22 [place] # (Auto) 1.19 H Eos # (Auto) 0.48 Baso # (Auto) 0.09 Immature Gran # (Auto) 0.10 PT 18.0 H INR 1.7 H Sodium Potassium Chloride Carbon Dioxide Anion Gap BUN Creatinine Est Cr Clr Drug Dosing Est GFR ( Amer) Est GFR (Non-Af Amer) BUN/Creatinine Ratio Glucose Calcium Magnesium Total Bilirubin AST ALT Alkaline Phosphatase Ammonia Total Protein Albumin Globulin Albumin/Globulin Ratio Tumor Marker AFP Pending 02/24/23 02/24/23 06:16 10:16 WBC RBC Hgb Hct MCV MCH MCHC RDW Std Deviation RDW Coeff of Howie Plt Count MPV Immature Gran % (Auto) Neut % (Auto) Lymph % (Auto) [place] % (Auto) Eos % (Auto) Baso % (Auto) Neut # (Auto) Lymph # (Auto) [place] # (Auto) Eos # (Auto) Baso # (Auto) Immature Gran # (Auto) PT INR Sodium 137 Potassium 4.1 Chloride 92 L Carbon Dioxide 36 H Anion Gap 9 BUN 66 H Creatinine 3.44 H D Est Cr Clr Drug Dosing 27.8 Est GFR ( Amer) 20.5 Est GFR (Non-Af Amer) 17.7 BUN/Creatinine Ratio 19.2 Glucose 119 H Calcium 10.4 H Magnesium 2.0 Total Bilirubin 4.5 H AST 18 ALT 8 Alkaline Phosphatase 61 Ammonia Pending Total Protein 7.8 Albumin 3.3 L Globulin 4.5 H Albumin/Globulin Ratio 0.7 L Tumor Marker AFP PG Care Time/CCT Total # of Minutes Spent Total Time Spent with Patient: Total time spent is greater than 50% in coordination of care (as documented) at patient's floor/unit and/or counseling patient: Coding Level of Care Code 64343 SUB INP/OBS CARE 3/50MIN Diagnoses Acute kidney injury superimposed on CKD N17.9; N18.9 Anemia D64.9 Anemia type: unspecified type Bilateral edema of lower extremity R60.0 Hyponatremia E87.1 Cirrhosis K74.60 (2) Anemia Anemia type: unspecified type Qualified Code(s): D64.9 - Anemia, unspecified
--- NOTE | 2023-02-24 10:35 | Palliative Care Consultation ---
Date of Consultation February 24, 2023 Assessment & Plan (1) Palliative care encounter: With hepatic encephalopathy, Mr. Bashir is not currently capable of discussing goals of care. I did speak with his , Norma, on the phone. She has been recovering from extensive health problems of her own which limits her ability to come in to the hospital. She tells me that her had been taking care of her during her illness but she is now ambulatory with a walker and generally independent in the home. She has been speaking with providers and has a good understanding of his illness. I explained role of palliative care to assist with discussing goals of care and planning. She tells me that he has never re ally talked much about what he would want for his care if he were seriously ill. He had considered dialysis during a past health crisis and declined dialysis at that time. However, he did speak with her about this and told her that he felt that he would do whatever he needed to do to "get better". We talked about what getting better would mean to him, and what he would think if he were going to be chronically confused and debilitated. We reviewed current small improvement in renal function and some success with diuresis but discussed overall concern that with multiorgan disease, it would be difficult for him to get better to the point of being independent and that he would likely continue to have problems. We also discussed code status, emphasizing that decision to not resuscitate wou ld not necessarily change current level of treatment if it were beneficial for him. Unfortunately, with his current condition, likelihood of desired outcome of CPR would be extremely low. It is very unlikely that he could be resuscitated and return to the level of function he had prior to admission. His also understands that she would likely need to make decision to withdraw care if resuscitation were not successful. Ideally, Mrs. Bashir would like her to participate in discussion of changing code status and setting goals of care. We will monitor over the next day or two to see if there is improvement in his mental status. She is agreeable to further discussion with palliative care. Discussed with Abigail Cr. History of Present Illness Reason for Consultation: Goals of care Requesting Physician: GIANFRANCO Denton Attending Physician: John Reynoso MD History of Present Illness 67 yo gentleman with history of appendiceal cancer, CML, afib, diastolic heart failure, afib and CKD. He presented with volume overload and shortness of breath. He also has cirrhosis presumably secondary to [place] with MELD score of 31. He has had aggressive diuretic management with nephrology and had been considered for dialysis. Fortunately, he has had improved urine output, with negative fluid balance of 3600 cc in last 24 hours, as well as improvement in creatinine from 5.35 last week to 3.44 today. He has had encephalopathy with elevated ammonia level which was 105 yesterday on lactulose. He is lethargic but easily arousable. He is is able to tell me that he is at [facility] but tells me that is is in [place]. He lives in [place]. He answers only yes or no to additional questions and does not appear to have insight into his illness at this time. His appetite is poor. He denies pain, dyspnea or nausea. Allergies Allergy/AdvReac Type Severity Reaction Status Date / Time bee venom protein (honey bee) Allergy Severe DYSPNEA;SWE Verified 02/06/23 13:15 LLING latex Allergy Intermediate Rash Verified 02/06/23 13:15 Penicillins Allergy Unknown HAPPENED Verified 02/06/23 13:15 A CHILD Home Medications Medication Instructions Recorded Confirmed Type epinephrine 0.3 mg/0.3 mL 0.3 mg (0.3 mL) IM Q10M PRN 08/06/21 02/12/23 Rx injection, auto-injector (EpiPen anaphylaxis #2 ea 2-Sb) tadalafil 20 mg tablet 20 mg PO DAILY PRN Erectile 08/06/21 02/12/23 History Dysfunction triamcinolone acetonide 0.1 % 1 applic topical DAILY PRN Skin 02/08/22 02/12/23 Rx topical ointment Irritation #80 grams metoprolol succinate 100 mg 50 mg PO QAM 04/24/22 02/12/23 History tablet,extended release 24 hr levothyroxine 137 mcg tablet 137 mcg PO QPM 09/02/22 02/12/23 History menthol 0.44 %-zinc oxide 20.6 % 1 applic EXT DIRECTED 09/17/22 02/12/23 History topical ointment (Calmoseptine) spironolactone 100 mg tablet 100 mg PO QAM #90 tabs 10/31/22 02/12/23 Rx allopurinol 300 mg tablet 300 mg PO QDL 01/07/23 02/12/23 History mesalamine 0.375 gram 1.5 g PO QDL 01/07/23 02/12/23 History capsule,extended release 24 hr magnesium oxide 400 mg (241.3 mg 400 mg PO BID #60 tabs 01/28/23 02/12/23 Rx magnesium) tablet bumetanide 2 mg tablet 2 mg PO DAILY 02/06/23 02/12/23 History Patient History Medical History Acute kidney injury Anemia Atrial flutter 10/02/2020: Ablation of typical right atrial isthmus dependent flutter. 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 Giraldo Cirrhosis CML (chronic myelocytic leukemia) no chemo at present COVID-19 GERD (gastroesophageal reflux disease) Hemangioma History of COVID-12 Dec 2021 > not hospitalized Hypertension Hypokalemia Hypothyroidism Low platelet count Lymphedema Murmur Paroxysmal A-fib resolved with ablation Pulmonary embolism Aug 2022 > was treated with Eliquis and now finished Right heart failure SVT (supraventricular tachycardia) 01/21/2012: Ablation of typical slow fast AVNRT 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 Ulcerative colitis Venous ulcer of left leg Venous ulcers of both lower extremities Vitamin D deficiency Surgical History H/O hernia repair (12/04/12) H/O laparoscopy H/O left knee surgery H/O lymph node excision 36 total H/O right hemicolectomy 36 lymph nodes removed as well History of appendectomy History of colonoscopy History of esophagogastroduodenoscopy (EGD) History of removal of Port-a-Cath History of tooth extraction Status post ablation of atrial flutter (12/04/12) 2020 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) Family History Grandmother (Paternal) Colorectal cancer Father Myocardial infarction Prostate cancer Denies family history of Ovarian cancer Dementia Breast cancer Social History Smoking Status: Never smoker Second Hand Exposure: No; Hx Alcohol Use: Yes Alcohol type: beer Hx Substance Use: No Preferred Language: Polish Communication Ability: Effective Visual Impairment: Limited Hearing Ability: Normal Architect Manager Required: No Beliefs That Will Affect Care: Rastafari marital status: Current Living Situation: Spouse Current Living Situation Comment: Lives with who has her own healthcare issues 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 How many Children do You have: 2 Other Information That Helps Us Care for You: No Feels Safe at Home: Yes Safety Concerns: Feels Safe At This Time Childhood Exposure to Second-Hand Smoke: No Diet Comment: 1999 cc fluid restriction during the past year weight has: increased > 10 lbs Dental Care, Regularly: Yes Physical Activity Frequency: Daily Seatbelt Use: always Sunscreen Use: Yes Assistive Devices: Cane Review of Systems Review of Systems: ESAS Pain 0/3 Dyspnea 0/3 Nausea 0/3 Anxiety 0/3 Drowsiness 1/3 Physical Exam Constitutional: + ill appearing; no acute distress Respiratory: normal respiratory effort; no labored breathing Cardiovascular: LE edema Skin: vascular skin changes Neurologic: Speech / Cognition: + abnormal cognition Results & Data Vital Signs (Past 12 Hours) Vital Signs Temp Pulse Resp BP BP Pulse Ox O2 Del Method 02/24/23 07:30 97.9 F 78 18 121/62 96 Room Air 02/23/23 22:44 98.4 F 76 17 135/66 97 Room Air PG Care Time/CCT Total # of Minutes Spent Total Time Spent: 55 Total Time Spent with Patient: Total time spent is greater than 50% in coordination of care (as documented) at patient's floor/unit and/or counseling patient:[id number] goals of care, code status, family education and support Coding Level of Care Code 49777 INT INP/OBS CARE 2/55MIN Diagnoses Palliative care encounter Z51.5
--- NOTE | 2023-02-24 10:52 | Hospitalist Progress Note ---
Date of Service February 24, 2023 Assessment & Plan (1) Volume overload: Plan: Acute/unstable - high risk - Has had significant volume overload/swelling/weight gain since discharge on 01/28, BNP elevated to 709 (highest it has ever been) - Likely due to only taking bumex once daily but had been taking his spironolactone 100mg daily - Nephrology following, now on Bumex 4mg IV BID + Metolazone 5mg daily - Aim for net negative (-3000cc today), continue to monitor urine output, renal function and electrolytes closely (electrolytes normal). - Nephrology stated they may have to consider ultrafiltration to improve LE edema. This was discussed in detail with Mustapha and his . Nephrology stated that if started on ultrafiltration at dialysis it will be most likely permanent and patient is aware. - At this point, nephrology feels he is poor candidate for dialysis d/t frailty and cirrhotic disease - Patient encouraged to elevate extremities for lymphedema/dependent edema - was able to get a recliner to elevate feet (2) Acute kidney injury superimposed on CKD: Plan: Acute/unstable - high risk - Nephrology following- appreciate assistance - Reviewed chemistry panel today, continues to have slow improvement in creatinine- 3.44 (3.84) - Baseline creatinine 1.5-1.6 - Avoid nephrotoxins/renal dose meds as possible - No plans to initiate dialysis per nephrology notes (3) Cirrhosis: Plan: Acute on chronic/unstable - high risk - Has a known history, pt has denied ETOH but patient's states that they do consume beer - Unclear if this is ETOH induced v [place] - Liver US w/ small amt ascites - not having abdominal pain - GI consulted -- outpt f/u recs. Serological workup pending outpt f/u - Reviewed CMP today - LFTs normal - Total Bilirubin trending back up, today 3.9 (yesterday 3.5) - Pt now with Hepatic encephalopathy - Reviewed Nh3, today 106 (yesterday 105) - Increase Lactulose to 30g to QID (was on TID 02/23) - Will consider adding Xifaxan - Discussed with will need to have GI/Hepatology follow up q 6 months with U/S and AFP - MELD score 30 - poor prognosis - Did broach the subject of code status today with patient, he repeatedly kept stating "he didn't know" when asked if he would like to proceed with a full resuscitation in the event of an acute cardiopulmonary arrest - Repeat limited US today to quantify acites - Palliative medicine consulted, appreciate assistance in establishing pt's goals of care (4) Anemia: Plan: Chronic/Stable - hx CML following w/ CCP - Checked iron panel, venofer x4 doses this admission per nephrology - B12 wnl, Folate low prior and continues on supplementation (improved from last month, not on home med list but pt states had been taking) - Fecal occult NEGATIVE - Reviewed CBC today Hgb improved to 10.6 (10.2) (5) S/P ablation of atrial fibrillation: Plan: Stable and chronic - Not currently on anticoagulation, ablation was remote while living in [place] - EKG on admit NSR, L anterior fascicular block, RBBB - Continue metoprolol succinate 100mg daily with hold parameters - clarified was previously on AC in September d/t blood clot - Stopped d/t issues of GI bleeding - Prior to ablation was only on aspirin (6) Vitamin D deficiency: Plan: Acute/unstable - replacement ordered - continue at d/c (7) Folate deficiency: Plan: Acute/unstable - prior low dec 2022, repeat ordered and replacement (8) Lymphedema: Plan: Chronic/stable - Wound RN consulted - Seen w/ wound RN -- amlactin ordered - NON TENDER/NO LEUKOCYTOSIS or fever - Monitor for any infection, just completed course Zosyn for LE cellulitis Plan Palliative med consulted d/t advanced liver disease with overall poor prognosis. Repeat labs in AM. Above d/w Dr. Reynoso. Admission and Anticipated Discharge Date Admission Date: February 12, 2023 Subjective Patient was seen on daily rounds this morning. He is sitting in bedside recliner in front of breakfast tray, sleeping. Easily awakens, verbalizes no complaints. Physical Exam Physical Exam: GENERAL: 67 yo Well-developed, morbidly obese WM who appears older than stated age. NAD. LUNGS: Clear to auscultation bilaterally. Diminished in bases. CARDIOVASCULAR: Regular rate and rhythm with 3/6 DONI. No g/r ABDOMEN: Soft, non-tender, mild to moderate distension. Bs normoactive x 4 quad. EXTREMITIES: Dependent + pitting edema noted b/l pedal and LE. Thickened/Sclerosed skin with chronic venous stasis changes. Results & Data Results & Data Vital Signs (Past 12 Hours) Vital Signs Temp Pulse Resp BP BP Pulse Ox O2 Del Method 02/24/23 07:30 36.6 C 78 18 121/62 96 Room Air 02/23/23 22:44 36.9 C 76 17 135/66 97 Room Air Laboratory Results 02/24/23 06:16 02/24/23 06:16 Ammonia: 106 PG Care Time/CCT Total # of Minutes Spent Total Time Spent with Patient: Total time spent is greater than 50% in coordination of care (as documented) at patient's floor/unit and/or counseling patient: Coding Level of Care Code 08748 SUB INP/OBS CARE 3/50MIN Diagnoses Volume overload E87.70 Acute kidney injury superimposed on CKD N17.9; N18.9 Cirrhosis K74.60 Anemia D64.9 Anemia type: unspecified type S/P ablation of atrial fibrillation Z98.890; Z86.79 Vitamin D deficiency E55.9 Folate deficiency E53.8 Lymphedema I89.0 (4) Anemia Anemia type: unspecified type Qualified Code(s): D64.9 - Anemia, unspecified
[2023-02-24] MEDS: allopurinoL 300 MG TAB PO SCH (14:26)
--- NOTE | 2023-02-24 15:16 | Ultrasound Report ---
US abdomen ltd ascites CLINICAL HISTORY: cirrhosis/quantify ascites COMPARISON STUDY: CT of the abdomen and pelvis April 04, 2022. Ultrasound to assess for ascites February 12, 2023. TECHNIQUE: Sonography of the 4 quadrants was performed to assess for ascites. FINDINGS: No ascites is identified within the abdomen or pelvis. Note is again made of a cirrhotic li murray. IMPRESSION: No ascites. ACT 112: Negative or not required by law. Electronically signed by: Vikram Angel M.D. 02/24/2023 3:14 PM
[2023-02-25] MEDS: HEPARIN SOD 5,000 UNIT/0.5 ML VIAL SQ SCH ×4 (04:55→20:34)
[2023-02-25] MEDS: LEVOTHYROXINE SODIUM 137 MCG TABLET PO SCH (06:08)
[2023-02-25] MEDS: METOPROLOL SUCC 50MG EXT REL TAB PO SCH (09:28)
[2023-02-25] MEDS: SPIRONOLACTONE 100 MG TAB PO SCH (09:28)
[2023-02-25] MEDS: CHOLECALCIFEROL 1,000 UNITS 25 MCG TAB PO SCH (09:28)
[2023-02-25] MEDS: BUMETANIDE 4 MG in SYRINGE 0 ML IV SCH ×2 (09:28→18:44)
[2023-02-25] MEDS: MAGNESIUM OXIDE 400 MG TAB PO SCH ×2 (09:29→20:26)
[2023-02-25] MEDS: FOLIC ACID 1 MG TAB PO SCH (09:29)
[2023-02-25] MEDS: metOLazone 5 MG TABLET PO SCH (09:29)
[2023-02-25] MEDS: LACTULOSE SYRUP 30 GM/45 ML UDP PO SCH ×4 (09:29→20:26)
[2023-02-25] MEDS: FAMOTIDINE 20 MG TAB PO SCH (09:29)
[2023-02-25 09:32] LABS: Basophils # (auto) 0.12 K/uL (0-0.2); Basophils % (auto) 0.9 %; Eosinophils % (auto) 2.9 %; Hematocrit (blood only) 32.9 % (42.0-52.0); Hemoglobin 11.2 g/dl (14.0-18.0); Immature Granulocytes # (auto) 0.09 K/uL (0.01-0.20); Immature Granulocytes % (auto) 0.6 %; Lymphocytes # (auto) 2.72 K/uL (1.2-3.4); Lymphocytes % (auto) 19.5 %; Mean Platelet Volume 9.5 fL (9.4-12.4); Monocytes # (auto) 1.06 K/uL (0.11-0.59); Monocytes % (auto) 7.6 %; Neutrophils # (auto) 9.53 K/uL (1.40-6.50); Neutrophils % (auto) 68.5 %; Platelet Count 156 K/uL (130-400); RDW Coefficient of Variation 16.2 % (11.5-14.5); RDW Standard Deviation 59.2 fL (36.4-46.3); Red Blood Count 3.29 M/uL (4.70-6.10); White Blood Count 13.92 K/ul (4.8-10.8)
[2023-02-25 09:52] LABS: INR 1.8 (0.9-1.1); Prothrombin Time 18.3 Seconds (9.0-12.0)
[2023-02-25 10:04] LABS: Albumin Globulin Ratio 0.7 (0.9-2); Albumin Level 3.3 gm/dl (3.4-5.0); BUN Creatinine Ratio 19.5 (10-20); Bilirubin,Total 4.8 mg/dl (0.2-1.0); Calcium 10.7 mg/dl (8.6-10.3); Creatinine Clr Calc Pharmacy 29.6 ml/min; Est GFR (African American) 22.1 ml/min; Est GFR (Non-African American) 19.1 ml/min; Globulin 4.6 gm/dl (2.5-4.0); Potassium 3.5 mmol/L (3.5-5.1); Total Protein 7.9 gm/dl (6.0-8.3)
[2023-02-25] MEDS ORDERED: hydrOXYzine HCl 25 MG TAB PO PRN (11:18)
--- NOTE | 2023-02-25 11:33 | Hospitalist Progress Note ---
Date of Service February 25, 2023 Assessment & Plan (1) Lethargy: Plan: Acute/unstable - Increased/progressive lethargy/sleepiness but awakens and is oriented x 3 - Reviewed CBC, increased wbc count with left shift, afebrile, not hypoxic - need to exclude infection as contributing cause for lethargy/somnolence - Check UA with reflex culture - Obtained CXR - no acute process - Overnight pulse ox to determine nocturnal hypoxia - CO2 elevated on labs this AM, obtained VBG c/w hypercapnia - Ammonia level now WNL at 64 (2) Volume overload: Plan: Acute/unstable - high risk - Nephrology following, now on Bumex 4mg IV BID + Metolazone 5mg daily - Aim for net negative (-3000cc today), continue to monitor urine output, renal function and electrolytes closely (electrolytes normal). - Nephrology stated they may have to consider ultrafiltration to improve LE edema. This was discussed in detail with Mustapha and his . Nephrology stated that if started on ultrafiltration at dialysis it will be most likely permanent and patient is aware. - At this point, nephrology feels he is poor candidate for dialysis d/t frailty and cirrhotic disease - Patient encouraged to elevate extremities for lymphedema/dependent edema - was able to get a recliner to elevate feet (3) Acute kidney injury superimposed on CKD: Plan: Acute/unstable - high risk - Nephrology following- appreciate assistance - Reviewed chemistry panel today, continues to have slow improvement in creatinine- 3.23 (3.44) - Baseline creatinine 1.5-1.6 - Avoid nephrotoxins/renal dose meds as possible - No plans to initiate dialysis per nephrology notes - Renal fxn may be starting to plateau, consider transition to oral Bumex regimen (4) Cirrhosis: Plan: Acute on chronic/unstable - high risk - Has a known history, pt has denied ETOH but patient's states that they do consume beer - Unclear if this is ETOH induced v [place] - GI consulted - outpt f/u recs. Serological workup pending outpt f/u - Reviewed CMP today - LFTs normal except uptrending TB to 4.8 - Pt developed hepatic encephalopathy 02/21 - ammonia elevated, started on lactulose - Ammonia reviewed level now WNL at 64 - Initiate Xifaxan 550mg BID 02/25 - Discussed with will need to have GI/Hepatology follow up q 6 months with U/S and AFP - MELD score 30 - poor prognosis - Did broach the subject of code status today with patient and - at this point he remains full code - Repeated limited US 02/24 - no acites seen, continue Spironolactone 100mg daily - may need to reduce dose based on BP readings - Palliative medicine consulted, appreciate assistance in establishing goals of care - Met with family at bedside (son and ) on 02/25 - patient made decision to be a DNR/DNI (5) Anemia: Plan: Chronic/Stable - hx CML following w/ CCP - Checked iron panel, venofer x4 doses this admission per nephrology - B12 wnl, Folate low prior and continues on supplementation (improved from last month, not on home med list but pt states had been taking) - Fecal occult NEGATIVE - Reviewed CBC today Hgb stable at 11.2 (6) S/P ablation of atrial fibrillation: Plan: Stable and chronic - Not currently on anticoagulation, ablation was remote while living in [place] - EKG on admit NSR, L anterior fascicular block, RBBB - Continue metoprolol succinate 50mg daily with hold parameters - clarified was previously on AC in September d/t blood clot - Stopped d/t issues of GI bleeding - Prior to ablation was only on aspirin (7) Vitamin D deficiency: Plan: Acute/unstable - replacement ordered - continue at d/c (8) Folate deficiency: Plan: Acute/unstable - prior low dec 2022, repeat ordered and replacement (9) Lymphedema: Plan: Chronic/stable - Wound RN consulted, appreciate assistance - amlactin ordered - Monitor for any infection, just completed course Zosyn for LE cellulitis Plan Palliative med consulted d/t advanced liver disease with overall poor prognosis. Work up for infection. Updated patient's and son via phone this morning and at bedside this afternoon. Code status changed. Plan d/w DR. Reynoso. Admission and Anticipated Discharge Date Admission Date: February 12, 2023 Subjective Patient seen on rounds this morning. More lethargic this morning. Per RN, only consumed 25% of breakfast. Awakens and does state correctly where he is and the year. He denies pain. Physical Exam Physical Exam: GENERAL: 67 yo well-developed, morbidly obese WM who appears older than stated age. NAD. LUNGS: Clear to auscultation bilaterally. Diminished in bases. CARDIOVASCULAR: Regular rate and rhythm with 3/6 DONI. No g/r : soto ABDOMEN: Soft, non-tender, mild to moderate distension. Bs normoactive x 4 quad. EXTREMITIES: Dependent + pitting edema noted b/l pedal and LE. Thickened/Scle rosed skin with chronic venous stasis changes. Results & Data Results & Data Vital Signs (Past 12 Hours) Vital Signs Temp Pulse Resp BP Pulse Ox O2 Del Method 02/25/23 07:50 36.6 C 71 21 111/54 L 95 Room Air Laboratory Results 02/25/23 08:52 02/25/23 08:52 PG Care Time/CCT Total # of Minutes Spent Total Time Spent with Patient: Total time spent is greater than 50% in coordination of care (as documented) at patient's floor/unit and/or counseling patient: Coding Level of Care Code 55575 SUB INP/OBS CARE 3/50MIN Diagnoses Lethargy R53.83 Volume overload E87.70 Acute kidney injury superimposed on CKD N17.9; N18.9 Cirrhosis K74.60 Anemia D64.9 Anemia type: unspecified type S/P ablation of atrial fibrillation Z98.890; Z86.79 Vitamin D deficiency E55.9 Folate deficiency E53.8 Lymphedema I89.0 (5) Anemia Anemia type: unspecified type Qualified Code(s): D64.9 - Anemia, unspecified
--- NOTE | 2023-02-25 11:40 | Nephrology Progress Note ---
Date of Service February 25, 2023 Assessment & Plan (1) Acute kidney injury superimposed on CKD: Plan: Non-oliguric. Adequate urine output. Creatinine improving. Electrolytes acceptable. Serum calcium rising. Remains on combination diuretic therapy with metolazone. PTH will be checked with next blood work. Medications appropriate for kidney function. CKD III A1. Baseline creatinine around 1.5-1.6. ANNA hemodynamic in the setting of cirrhosis, intravascular volume depletion, right sided CHF. Given frailty and cirrhosis, Mr. Bashir is a very poor candidate for dialysis. Thankfully, there is no emergent indication at this time. (2) Anemia: Plan: H/H stable. Epogen 79470 units provided 02/20/23. Iron profile acceptable. (3) Bilateral edema of lower extremity: Plan: Combination of lymphedema, right sided CHF, and venous insufficiency. Remains on metolazone 5 mg daily + Bumex 4 mg BID + Aldactone as Rx. UOP notably i ncreased. Metolazone will be held tomorrow AM. (4) Hyponatremia: Plan: Free water restriction to 1 L/d. (5) Cirrhosis: Plan: MELD 30. Prognosis is unfortunately very poor. Palliative care appreciated. Unfortunately, despite lactulose therapy QID, continues to demonstrate evidence of persistent HE. Admission and Anticipated Discharge Date Admission Date: February 12, 2023 Subjective No acute events overnight. Mr. Bashir remains lethargic this morning. He opened his eyes but drifted back to sleep during our conversation. He told me that he's been in the hospital too long. However, he was not able to tell me how long he has been in the hospital or which hospital he is admitted to. He does feel that his edema is improving. He denies any urinary complaints. No abdominal pain. No fevers or chills. Review of Systems Review of Systems: All systems reviewed & are unremarkable except as noted in HPI & below Physical Exam Constitutional: WD/WN, vitals as above + frail appearing and comfortable; no acute distress Eyes: + anicteric sclerae Neck: normal visual inspection Respiratory: Auscultation: lungs clear to auscultation bilaterally Cardiovascular: Rate/Rhythm: regular rate and regular rhythm Heart Sounds: normal S1 and normal S2 Extremities: + edema (chronic b/l lymphedema) Gastrointestinal (Abdomen): Inspection/Auscultation: + abdomen distended and + abdominal edema (slight improvement) Skin: + turgor decreased and + jaundice Neurologic: no focal motor deficits Motor/Sensory: + tremor and + asterixis Psychiatric: Orientation: alert, oriented x 3 and oriented to person Affect: euthymic affect Results & Data Vital Signs (Past 12 Hours) Vital Signs Temp Pulse Resp BP Pulse Ox O2 Del Method 02/25/23 07:50 36.6 C 71 21 111/54 L 95 Room Air Laboratory Results Laboratory Results - last 24 hr 02/23/23 02/24/23 02/25/23 06:09 18:38 08:52 WBC 13.92 H RBC 3.29 L Hgb 11.2 L Hct 32.9 L MCV 100.0 MCH 34.0 MCHC 34.0 RDW Std Deviation 59.2 H RDW Coeff of Howie 16.2 H Plt Count 156 MPV 9.5 Immature Gran % (Auto) 0.6 Neut % (Auto) 68.5 Lymph % (Auto) 19.5 [place] % (Auto) 7.6 Eos % (Auto) 2.9 Baso % (Auto) 0.9 Neut # (Auto) 9.53 H Lymph # (Auto) 2.72 [place] # (Auto) 1.06 H Eos # (Auto) 0.40 Baso # (Auto) 0.12 Immature Gran # (Auto) 0.09 PT INR VBG pH VBG pCO2 VBG pO2 VBG HCO3 VBG O2 Saturation VBG Base Excess Sodium Potassium Chloride Carbon Dioxide Anion Gap BUN Creatinine Est Cr Clr Drug Dosing Est GFR ( Amer) Est GFR (Non-Af Amer) BUN/Creatinine Ratio Glucose Calcium Total Bilirubin AST ALT Alkaline Phosphatase Ammonia Total Protein Albumin Globulin Albumin/Globulin Ratio Tumor Marker AFP 2.2 Stool Occult Bld Scrn Negative 02/25/23 02/25/23 02/25/23 08:52 08:52 08:52 WBC RBC Hgb Hct MCV MCH MCHC RDW Std Deviation RDW Coeff of Howie Plt Count MPV Immature Gran % (Auto) Neut % (Auto) Lymph % (Auto) [place] % (Auto) Eos % (Auto) Baso % (Auto) Neut # (Auto) Lymph # (Auto) [place] # (Auto) Eos # (Auto) Baso # (Auto) Immature Gran # (Auto) PT 18.3 H INR 1.8 H VBG pH VBG pCO2 VBG pO2 VBG HCO3 VBG O2 Saturation VBG Base Excess Sodium 138 Potassium 3.5 Chloride 90 L Carbon Dioxide 37 H Anion Gap 11 BUN 63 H Creatinine 3.23 H Est Cr Clr Drug Dosing 29.6 Est GFR ( Amer) 22.1 Est GFR (Non-Af Amer) 19.1 BUN/Creatinine Ratio 19.5 Glucose 120 H Calcium 10.7 H Total Bilirubin 4.8 H AST 19 ALT 8 Alkaline Phosphatase 62 Ammonia 64.0 Total Protein 7.9 Albumin 3.3 L Globulin 4.6 H Albumin/Globulin Ratio 0.7 L Tumor Marker AFP Stool Occult Bld Scrn 02/25/23 11:27 WBC RBC Hgb Hct MCV MCH MCHC RDW Std Deviation RDW Coeff of Howie Plt Count MPV Immature Gran % (Auto) Neut % (Auto) Lymph % (Auto) [place] % (Auto) Eos % (Auto) Baso % (Auto) Neut # (Auto) Lymph # (Auto) [place] # (Auto) Eos # (Auto) Baso # (Auto) Immature Gran # (Auto) PT INR VBG pH Pending VBG pCO2 Pending VBG pO2 Pending VBG HCO3 Pending VBG O2 Saturation Pending VBG Base Excess Pending Sodium Potassium Chloride Carbon Dioxide Anion Gap BUN Creatinine Est Cr Clr Drug Dosing Est GFR ( Amer) Est GFR (Non-Af Amer) BUN/Creatinine Ratio Glucose Calcium Total Bilirubin AST ALT Alkaline Phosphatase Ammonia Total Protein Albumin Globulin Albumin/Globulin Ratio Tumor Marker AFP Stool Occult Bld Scrn PG Care Time/CCT Total # of Minutes Spent Total Time Spent with Patient: Total time spent is greater than 50% in coordination of care (as documented) at patient's floor/unit and/or counseling patient: Coding Level of Care Code 08850 SUB INP/OBS CARE 3/50MIN Diagnoses Acute kidney injury superimposed on CKD N17.9; N18.9 Anemia D64.9 Anemia type: unspecified type Bilateral edema of lower extremity R60.0 Hyponatremia E87.1 Cirrhosis K74.60 (2) Anemia Anemia type: unspecified type Qualified Code(s): D64.9 - Anemia, unspecified
--- NOTE | 2023-02-25 12:01 | XRay Report ---
SINGLE VIEW CHEST CLINICAL HISTORY: Leukocytosis FINDINGS: 2 AP, portable, upright chest radiographs are compared to study dated 02/12/2023 and correla deondre with chest CT dated 09/02/2022. The examination is degraded by portable technique and patient rot ation. The heart is enlarged noting atherosclerotic calcification of the thoracic aorta. The pulmona ry vasculature is noncongested. The lungs and pleural spaces are clear noting bibasilar atelectasis. No pneumothorax is seen. The skeletal structures are osteopenic. The bony thorax is grossly intact. IMPRESSION: Cardiomegaly with no acute cardiopulmonary abnormality identified. ACT 112: Negative or not required by law. Electronically signed by: Xiang Pedraza M.D. 02/25/2023 12:00 PM
[2023-02-25 12:07] LABS: Base Excess VBG 17.9 mEq/L; HCO3 VBG 45 mmol/L; Oxygen Saturation VBG < 60.0 %; PCO2 VBG 60 mmHg (38-50); PO2 VBG 19 mmHg; pH VBG 7.48 (7.36-7.41)
[2023-02-25] MEDS: allopurinoL 300 MG TAB PO SCH (14:12)
[2023-02-25] MEDS: rifAXIMin 550 MG TABLET PO SCH ×2 (14:16→20:25)
[2023-02-25] MEDS: MICONAZOLE NITRATE POWDER 85 GM EXT SCH (20:26)
[2023-02-26 01:20] LABS: Appearance Urine Turbid (Clear); Bacteria Urine Automated 1+ (Negative); Bilirubin Urine Negative (Negative); Blood Urine 3+ (Negative); Color Urine Dark Yellow; Glucose Urine UA Negative (Negative); Ketones Urine Trace (Negative); Leukocyte Esterase Urine 3+ (Negative); Nitrite Urine Negative (Negative); Protein Urine 1+ (Negative); RBC Urine Automated >30 /hpf (0-4); Specific Gravity Urine 1.017 (1.000-1.030); Urobilinogen Urine Negative (Negative); WBC Urine Automated >30 /hpf (0-5); pH Urine 5.5 (4.5-7.5)
--- NOTE | 2023-02-26 01:41 | Communication Note ---
Date of Service: February 26, 2023 Was alerted from nursing staff that patient's UA appeared infectious. Gave 1g rocephin empirically. Urine cx pending. Will defer to day team for further man agement. Resident Activity Tracking Resident Involvement: Resident Care Provided Care Provided: Adult Hospital Medicine
[2023-02-26] MEDS ORDERED: cefTRIAXone SODIUM 2,000 MG in DEXTROSE 5% 50 ML IV ONE (01:45)
[2023-02-26] MEDS: LEVOTHYROXINE SODIUM 137 MCG TABLET PO SCH (05:41)
[2023-02-26] MEDS: HEPARIN SOD 5,000 UNIT/0.5 ML VIAL SQ SCH ×3 (05:42→21:40)
[2023-02-26 06:52] LABS: Basophils # (auto) 0.15 K/uL (0-0.2); Basophils % (auto) 1.1 %; Eosinophils # (auto) 0.51 K/uL (0-0.50); Eosinophils % (auto) 3.9 %; Hematocrit (blood only) 32.4 % (42.0-52.0); Hemoglobin 11.1 g/dl (14.0-18.0); Immature Granulocytes # (auto) 0.12 K/uL (0.01-0.20); Immature Granulocytes % (auto) 0.9 %; Lymphocytes # (auto) 2.88 K/uL (1.2-3.4); Lymphocytes % (auto) 21.8 %; Mean Corpuscular Hemoglobin 34.7 pg (25.0-34.0); Mean Corpuscular Hgb Conc 34.3 g/dL (32.0-36.0); Mean Corpuscular Volume 101.3 fL (80.0-100.0); Mean Platelet Volume 10.1 fL (9.4-12.4); Monocytes # (auto) 1.28 K/uL (0.11-0.59); Monocytes % (auto) 9.7 %; Neutrophils # (auto) 8.25 K/uL (1.40-6.50); Neutrophils % (auto) 62.6 %; Platelet Count 159 K/uL (130-400); RDW Coefficient of Variation 15.9 % (11.5-14.5); RDW Standard Deviation 58.7 fL (36.4-46.3); White Blood Count 13.19 K/ul (4.8-10.8)
[2023-02-26 07:08] LABS: Albumin Globulin Ratio 0.7 (0.9-2); Albumin Level 3.1 gm/dl (3.4-5.0); BUN Creatinine Ratio 16.9 (10-20); Bilirubin,Total 3.9 mg/dl (0.2-1.0); Calcium 10.4 mg/dl (8.6-10.3); Creatinine Clr Calc Pharmacy 24.5 ml/min; Est GFR (African American) 17.6 ml/min; Est GFR (Non-African American) 15.2 ml/min; Globulin 4.3 gm/dl (2.5-4.0); Magnesium 1.9 mg/dl (1.7-2.4); Potassium 3.7 mmol/L (3.5-5.1); Total Protein 7.4 gm/dl (6.0-8.3)
[2023-02-26 07:18] LABS: INR 1.8 (0.9-1.1); Prothrombin Time 18.2 Seconds (9.0-12.0)
[2023-02-26] MEDS: CHOLECALCIFEROL 1,000 UNITS 25 MCG TAB PO SCH (08:26)
[2023-02-26] MEDS: SPIRONOLACTONE 100 MG TAB PO SCH (08:26)
[2023-02-26] MEDS: FAMOTIDINE 20 MG TAB PO SCH (08:26)
[2023-02-26] MEDS: METOPROLOL SUCC 50MG EXT REL TAB PO SCH (08:26)
[2023-02-26] MEDS: LACTULOSE SYRUP 30 GM/45 ML UDP PO SCH ×4 (08:27→21:39)
[2023-02-26] MEDS: FOLIC ACID 1 MG TAB PO SCH (08:27)
[2023-02-26] MEDS: rifAXIMin 550 MG TABLET PO SCH ×2 (08:27→21:37)
[2023-02-26] MEDS: BUMETANIDE 4 MG in SYRINGE 0 ML IV SCH (08:27)
[2023-02-26] MEDS: MAGNESIUM OXIDE 400 MG TAB PO SCH ×2 (08:27→21:39)
[2023-02-26] MEDS: MICONAZOLE NITRATE POWDER 85 GM EXT SCH ×3 (08:28→21:40)
--- NOTE | 2023-02-26 08:48 | Hospitalist Progress Note ---
Date of Service February 26, 2023 Assessment & Plan (1) Lethargy: Plan: Acute/unstable but IMPROVING Increased lethargy/hepatic encephalopathy 02/25, ammonia 106, lactulose initiated/titrated and currently 30mg QID (2BM thus far), ammonia normalized on repeat to 64 and continues lactulose Rifaximin initiated BID 02/25 -- will need new rx at d/c CXR w/o acute process CO2 elevated on labs 02/25, obtained VBG c/w hypercapnia Overnight pulse ox to determine nocturnal hypoxia --> will schedule 2L HS for now, will need outpt sleep study Checked UA/culture --> appeared infected, given Rocephin IV overnight, will continue 2gm IV daily until cx finalized holding further bumex/metolazone (did get bumex this morning) net 4.2L, 1.2L this morning over past 24 hours, suspect overdiuresis as well at present. Will hold further diuretics for today Added PTH to AM labs given hypercalcemia (prior Vit D low, PO replacement ordered earlier in the hospitalization) Monitor labs on repeat Ultimate goal is rehab/home for patient Palliative med consulted d/t advanced liver disease with overall poor prognosis. (2) Volume overload: Plan: Acute/unstable - high risk Nephrology following Bumex 4mg IV BID, metolazone 5mg daily added 02/17 w/ good diuresis. Already on spironolactone 100mg daily Net negative 4.2L on 02/25, 1.2L this morning and further diuretics placed on hold (did get AM dose bumex) given rise in Cr/possible UTI as above and intravascular depletion Poor candidate for HD d/t frailty and cirrhotic disease Patient encouraged to elevate extremities for lymphedema/dependent edema - was able to get a recliner to elevate feet Renal dose meds/avoid nephrotoxins as able Monitor BMP in AM (3) Acute kidney injury superimposed on CKD: Plan: Acute/unstable - high risk - Nephrology following- appreciate assistance - Baseline creatinine 1.5-1.6 previously, however progressive decline over the last year/progression of cirrhosis as well - Avoid nephrotoxins/renal dose meds as possible - No plans to initiate dialysis per nephrology notes - Reviewed chemistry panel, continued to have slow improvement in creatinine- 3.23 (3.44), however WORSE Cr 3.9 on AM labs today, abx ordered for possible UTI as above, holding further diuretics for now (consider switching to PO tomorrow pending volume status/kidney function) (4) Cirrhosis: Plan: Acute on chronic/unstable - high risk Has a known history, pt has denied ETOH but patient's states that they do consume beer - Unclear if this is ETOH induced v [place] - GI consulted - outpt f/u recs. Serological workup pending outpt f/u - Reviewed CMP today - LFTs normal except up trending TB to 4.8 - Pt developed hepatic encephalopathy 02/21 - ammonia elevated, started on lactulose - Ammonia reviewed level now WNL at 64 - Initiated Xifaxan 550mg BID 02/25 - Discussed with will need to have GI/Hepatology follow up q 6 months with U/S and AFP - MELD score 31 presently (02/26), poor prognosis - Did broach the subject of code status today with patient and - at this point he remains full code - Repeated limited US 02/24 - no ascites seen, continue Spironolactone 100mg daily - may need to reduce dose based on BP readings, holding further bumex at present - Palliative medicine consulted, appreciate assistance in establishing goals of care - Met with family at bedside (son and ) on 02/25 - patient made decision to be a DNR/DNI (5) Anemia: Plan: Chronic/Stable - hx CML following w/ CCP - Checked iron panel, venofer x4 doses this admission per nephrology - B12 wnl, Folate low prior and continues on supplementation (improved from last month, not on home med list but pt states had been taking) - Fecal occult NEGATIVE - Reviewed CBC today Hgb stable at 11.1 (6) S/P ablation of atrial fibrillation: Plan: Stable and chronic - Not currently on anticoagulation, ablation was remote while living in [place] - EKG on admit NSR, L anterior fascicular block, RBBB - Continue metoprolol succinate 50mg daily with hold parameters - clarified was previously on AC in September d/t blood clot --> Stopped d/t issues of GI bleeding - Prior to ablation was only on aspirin but patient reported some bleeding w/ such (7) Vitamin D deficiency: Plan: Acute/unstable - replacement ordered - continue at d/c Check PTH w/ AM labs, prior normal in Oct 2022, but hypercalcemia on labs (10.4 in setting diuretics) (8) Folate deficiency: Plan: Acute/unstable - prior low dec 2022, repeat ordered and replacement (9) Lymphedema: Plan: Chronic/stable - Wound RN consulted, appreciate assistance - amlactin ordered - Monitor for any infection, just completed course Zosyn for LE cellulitis Plan continued inpatient stay Admission and Anticipated Discharge Date Admission Date: February 12, 2023 Supervising Physician Co-Signing Physician Notes The patient was not seen by me. The chart was reviewed. Case discussed with SHERRON Clark. Agree with assessment and plan Subjective Patient evaluated after lunch. Reports good appetite. Per nursing aides,moved bowels this morning. Discussed tx w/ abx for UTI and monitor cultures. Discussed cirrhosis/medication changes. Discussed ultimate goal for patient -- he wants to get to rehab and eventually home.Discussed holding further diuretics for today and monitoring kidney function/status in AM. He did get dose of bumex IV this morning prior to being placed on hold. No CP/SOB, fever/chills, abdominal pain reported. Questions/concerns addressed at this time. Physical Exam Physical Exam: General: WD obese male, chronically ill appeating, sitting up in recliner with hat on, depressed affect but NAD, states remembers me from last week HEENT; head normocephalic, eyes anicteric, trachea midline Resp: CTA, diminished in bases, on room air CV: RRR, +systolic murmur, +LE edema/lymphedema + crusting, wrapped GI: obese, tympanic, DISTENDED but NONTENDER, no guarding/rebound : soto draining concentrated yellow/darkened urine MSK/Neuro: no focal deficit Psych: AOx3, cooperative but depressed affect Skin: b/l LE lymphedema, some serous drainage/cracking of skin but no obvious open/draining lesions, thickened skin c/w lymphedema Results & Data Results & Data Vital Signs (Past 12 Hours) Vital Signs Temp Pulse Resp BP Pulse Ox O2 Del Method 02/26/23 07:46 36.6 C 77 16 121/60 91 Room Air Laboratory Results 02/26/23 02/26/23 02/26/23 Range/Units 09:33 05:31 05:31 WBC (4.8-10.8) K/ul RBC (4.70-6.10) M/uL Hgb (14.0-18.0) g/dl Hct (42.0-52.0) % MCV (80.0-100.0) fL MCH (25.0-34.0) pg MCHC (32.0-36.0) g/dL RDW Std Deviation (36.4-46.3) fL RDW Coeff of Howie (11.5-14.5) % Plt Count (130-400) K/uL MPV (9.4-12.4) fL Immature Gran % (Auto) % Neut % (Auto) % Lymph % (Auto) % [place] % (Auto) % Eos % (Auto) % Baso % (Auto) % Neut # (Auto) (1.40-6.50) K/uL Lymph # (Auto) (1.2-3.4) K/uL [place] # (Auto) (0.11-0.59) K/uL Eos # (Auto) (0-0.50) K/uL Baso # (Auto) (0-0.2) K/uL Immature Gran # (Auto) (0.01-0.20) K/uL PT 18.2 H (9.0-12.0) Seconds INR 1.8 H (0.9-1.1) Sodium 137 (136-145) mmol/L Potassium 3.7 (3.5-5.1) mmol/L Chloride 90 L (98-107) mmol/L Carbon Dioxide 36 H (21-32) mmol/L Anion Gap 11 (3-11) BUN 66 H (6-23) mg/dl Creatinine 3.90 H D (0.6-1.4) mg/dl Est Cr Clr Drug Dosing 24.5 ml/min Est GFR ( Amer) 17.6 ml/min Est GFR (Non-Af Amer) 15.2 ml/min BUN/Creatinine Ratio 16.9 (10-20) Glucose 108 H (70-99(Fasting)) mg/dl Calcium 10.4 H (8.6-10.3) mg/dl Magnesium 1.9 (1.7-2.4) mg/dl Total Bilirubin 3.9 H (0.2-1.0) mg/dl AST 20 (13-39) U/L ALT 9 (7-52) U/L Alkaline Phosphatase 61 (34-104) U/L Total Protein 7.4 (6.0-8.3) gm/dl Albumin 3.1 L (3.4-5.0) gm/dl Globulin 4.3 H (2.5-4.0) gm/dl Albumin/Globulin Ratio 0.7 L (0.9-2) PTH Intact 10.6 L (12.0-88.0) pg/ml Urine Color Urine Appearance (Clear) Urine pH (4.5-7.5) Ur Specific [place] (1.000-1.030) Urine Protein (Negative) Urine Glucose (UA) (Negative) Urine Ketones (Negative) Urine Blood (Negative) Urine Nitrite (Negative) Urine Bilirubin (Negative) Urine Urobilinogen (Negative) Ur Leukocyte Esterase (Negative) Urine WBC (Auto) (0-5) /hpf Urine RBC (Auto) (0-4) /hpf U Hyaline Cast (Auto) (0-5) /lpf U Epithel Cells (Auto) (0-5) /lpf Urine Bacteria (Auto) (Negative) 02/26/23 02/26/23 Range/Units 05:31 01:00 WBC 13.19 H (4.8-10.8) K/ul RBC 3.20 L (4.70-6.10) M/uL Hgb 11.1 L (14.0-18.0) g/dl Hct 32.4 L (42.0-52.0) % MCV 101.3 H (80.0-100.0) fL MCH 34.7 H (25.0-34.0) pg MCHC 34.3 (32.0-36.0) g/dL RDW Std Deviation 58.7 H (36.4-46.3) fL RDW Coeff of Howie 15.9 H (11.5-14.5) % Plt Count 159 (130-400) K/uL MPV 10.1 (9.4-12.4) fL Immature Gran % (Auto) 0.9 % Neut % (Auto) 62.6 % Lymph % (Auto) 21.8 % [place] % (Auto) 9.7 % Eos % (Auto) 3.9 % Baso % (Auto) 1.1 % Neut # (Auto) 8.25 H (1.40-6.50) K/uL Lymph # (Auto) 2.88 (1.2-3.4) K/uL [place] # (Auto) 1.28 H (0.11-0.59) K/uL Eos # (Auto) 0.51 H (0-0.50) K/uL Baso # (Auto) 0.15 (0-0.2) K/uL Immature Gran # (Auto) 0.12 (0.01-0.20) K/uL PT (9.0-12.0) Seconds INR (0.9-1.1) Sodium (136-145) mmol/L Potassium (3.5-5.1) mmol/L Chloride (98-107) mmol/L Carbon Dioxide (21-32) mmol/L Anion Gap (3-11) BUN (6-23) mg/dl Creatinine (0.6-1.4) mg/dl Est Cr Clr Drug Dosing ml/min Est GFR ( Amer) ml/min Est GFR (Non-Af Amer) ml/min BUN/Creatinine Ratio (10-20) Glucose (70-99(Fasting)) mg/dl Calcium (8.6-10.3) mg/dl Magnesium (1.7-2.4) mg/dl Total Bilirubin (0.2-1.0) mg/dl AST (13-39) U/L ALT (7-52) U/L Alkaline Phosphatase (34-104) U/L Total Protein (6.0-8.3) gm/dl Albumin (3.4-5.0) gm/dl Globulin (2.5-4.0) gm/dl Albumin/Globulin Ratio (0.9-2) PTH Intact (12.0-88.0) pg/ml Urine Color Dark Yellow Urine Appearance Turbid A (Clear) Urine pH 5.5 (4.5-7.5) Ur Specific [place] 1.017 (1.000-1.030) Urine Protein 1+ H (Negative) Urine Glucose (UA) Negative (Negative) Urine Ketones Trace H (Negative) Urine Blood 3+ H (Negative) Urine Nitrite Negative (Negative) Urine Bilirubin Negative (Negative) Urine Urobilinogen Negative (Negative) Ur Leukocyte Esterase 3+ H (Negative) Urine WBC (Auto) >30 H (0-5) /hpf Urine RBC (Auto) >30 H (0-4) /hpf U Hyaline Cast (Auto) 10-30 H (0-5) /lpf U Epithel Cells (Auto) 10-20 H (0-5) /lpf Urine Bacteria (Auto) 1+ H (Negative) PG Care Time/CCT Total # of Minutes Spent Total Time Spent with Patient: Total time spent is greater than 50% in coordination of care (as documented) at patient's floor/unit and/or counseling patient: Coding Level of Care Code 30495 SUB INP/OBS CARE 3/50MIN Diagnoses Lethargy R53.83 Volume overload E87.70 Acute kidney injury superimposed on CKD N17.9; N18.9 Cirrhosis K74.60 Anemia D64.9 Anemia type: unspecified type S/P ablation of atrial fibrillation Z98.890; Z86.79 Vitamin D deficiency E55.9 Folate deficiency E53.8 Lymphedema I89.0 (5) Anemia Anemia type: unspecified type Qualified Code(s): D64.9 - Anemia, unspecified
--- NOTE | 2023-02-26 10:39 | Nephrology Progress Note ---
Date of Service February 26, 2023 Assessment & Plan (1) Acute kidney injury superimposed on CKD: Plan: Non-oliguric. Electrolytes acceptable. Serum calcium rising. Creatinine rising. Hold diuretics. Medications appropriate for kidney function. CKD III A1. Baseline creatinine around 1.5-1.6. ANNA hemodynamic in the setting of cirrhosis, intravascular volume depletion, right sided CHF. Given frailty and cirrhosis, Mr. Bashir is a very poor candidate for dialysis. Thankfully, there is no emergent indication at this time. (2) Anemia: Plan: H/H stable. Epogen 17280 units provided 02/20/23. Iron profile acceptable. (3) Bilateral edema of lower extremity: Plan: Combination of lymphedema, right sided CHF, and venous insufficiency. Diuretics held this AM due to intravascular depletion. (4) Hyponatremia: Plan: Free water restriction to 1 L/d. (5) Cirrhosis: Plan: MELD 30. Prognosis is unfortunately very poor. Palliative care appreciated. HE appears to be improving with adjustment in therapy based on interaction this AM. Admission and Anticipated Discharge Date Admission Date: February 12, 2023 Subjective No acute events overnight. No fevers or chills. Mr. Bashir was out of bed with the RN this morning. He was bathing and our interaction was limited. However, he reports improvement this morning. He feels stronger and reports sleeping well last night and feeling more rested today. Denies pain. I discussed the plan of care with Cynthia Butler PA-C. Review of Systems Review of Systems: All systems reviewed & are unremarkable except as noted in HPI & below Physical Exam Constitutional: WD/WN, vitals as above + frail appearing and comfortable; no acute distress Eyes: + anicteric sclerae Neck: normal visual inspection Respiratory: normal respiratory effort Cardiovascular: Rate/Rhythm: regular rate Extremities: + edema (chronic b/l lymphedema) Skin: + turgor decreased and + jaundice Neurologic: Motor/Sensory: normal movement Psychiatric: Orientation: alert Affect: euthymic affect Results & Data Vital Signs (Past 12 Hours) Vital Signs Temp Pulse Resp BP Pulse Ox O2 Del Method 02/26/23 07:46 36.6 C 77 16 121/60 91 Room Air Laboratory Results Laboratory Results - last 24 hr 02/25/23 02/26/23 02/26/23 11:27 01:00 05:31 WBC 13.19 H RBC 3.20 L Hgb 11.1 L Hct 32.4 L MCV 101.3 H MCH 34.7 H MCHC 34.3 RDW Std Deviation 58.7 H RDW Coeff of Howie 15.9 H Plt Count 159 MPV 10.1 Immature Gran % (Auto) 0.9 Neut % (Auto) 62.6 Lymph % (Auto) 21.8 [place] % (Auto) 9.7 Eos % (Auto) 3.9 Baso % (Auto) 1.1 Neut # (Auto) 8.25 H Lymph # (Auto) 2.88 [place] # (Auto) 1.28 H Eos # (Auto) 0.51 H Baso # (Auto) 0.15 Immature Gran # (Auto) 0.12 PT INR VBG pH 7.48 H VBG pCO2 60 H VBG pO2 19 VBG HCO3 45 VBG O2 Saturation < 60.0 VBG Base Excess 17.9 Sodium Potassium Chloride Carbon Dioxide Anion Gap BUN Creatinine Est Cr Clr Drug Dosing Est GFR ( Amer) Est GFR (Non-Af Amer) BUN/Creatinine Ratio Glucose Calcium Magnesium Total Bilirubin AST ALT Alkaline Phosphatase Total Protein Albumin Globulin Albumin/Globulin Ratio PTH Intact Urine Color Dark Yellow Urine Appearance Turbid A Urine pH 5.5 Ur Specific [place] 1.017 Urine Protein 1+ H Urine Glucose (UA) Negative Urine Ketones Trace H Urine Blood 3+ H Urine Nitrite Negative Urine Bilirubin Negative Urine Urobilinogen Negative Ur Leukocyte Esterase 3+ H Urine WBC (Auto) >30 H Urine RBC (Auto) >30 H U Hyaline Cast (Auto) 10-30 H U Epithel Cells (Auto) 10-20 H Urine Bacteria (Auto) 1+ H 02/26/23 02/26/23 02/26/23 05:31 05:31 09:33 WBC RBC Hgb Hct MCV MCH MCHC RDW Std Deviation RDW Coeff of Howie Plt Count MPV Immature Gran % (Auto) Neut % (Auto) Lymph % (Auto) [place] % (Auto) Eos % (Auto) Baso % (Auto) Neut # (Auto) Lymph # (Auto) [place] # (Auto) Eos # (Auto) Baso # (Auto) Immature Gran # (Auto) PT 18.2 H INR 1.8 H VBG pH VBG pCO2 VBG pO2 VBG HCO3 VBG O2 Saturation VBG Base Excess Sodium 137 Potassium 3.7 Chloride 90 L Carbon Dioxide 36 H Anion Gap 11 BUN 66 H Creatinine 3.90 H D Est Cr Clr Drug Dosing 24.5 Est GFR ( Amer) 17.6 Est GFR (Non-Af Amer) 15.2 BUN/Creatinine Ratio 16.9 Glucose 108 H Calcium 10.4 H Magnesium 1.9 Total Bilirubin 3.9 H AST 20 ALT 9 Alkaline Phosphatase 61 Total Protein 7.4 Albumin 3.1 L Globulin 4.3 H Albumin/Globulin Ratio 0.7 L PTH Intact Pending Urine Color Urine Appearance Urine pH Ur Specific [place] Urine Protein Urine Glucose (UA) Urine Ketones Urine Blood Urine Nitrite Urine Bilirubin Urine Urobilinogen Ur Leukocyte Esterase Urine WBC (Auto) Urine RBC (Auto) U Hyaline Cast (Auto) U Epithel Cells (Auto) Urine Bacteria (Auto) PG Care Time/CCT Total # of Minutes Spent Total Time Spent with Patient: Total time spent is greater than 50% in coordination of care (as documented) at patient's floor/unit and/or counseling patient: Coding Level of Care Code 58858 SUB INP/OBS CARE 3/50MIN Diagnoses Acute kidney injury superimposed on CKD N17.9; N18.9 Anemia D64.9 Anemia type: unspecified type Bilateral edema of lower extremity R60.0 Hyponatremia E87.1 Cirrhosis K74.60 (2) Anemia Anemia type: unspecified type Qualified Code(s): D64.9 - Anemia, unspecified
[2023-02-26] MEDS: allopurinoL 300 MG TAB PO SCH (11:43)
[2023-02-27] MEDS ORDERED: CYCLOBENZAPRINE HCL 10 MG TAB PO STA ×2 (00:58→22:12)
[2023-02-27] MEDS ORDERED: cefTRIAXone SODIUM 2,000 MG in DEXTROSE 5% 50 ML IV SCH (01:45)
[2023-02-27] MEDS: HEPARIN SOD 5,000 UNIT/0.5 ML VIAL SQ SCH ×3 (06:04→21:15)
[2023-02-27] MEDS: LEVOTHYROXINE SODIUM 137 MCG TABLET PO SCH (06:05)
[2023-02-27 06:53] LABS: Basophils # (auto) 0.19 K/uL (0-0.2); Basophils % (auto) 1.2 %; Eosinophils # (auto) 0.78 K/uL (0-0.50); Hematocrit (blood only) 33.3 % (42.0-52.0); Hemoglobin 11.5 g/dl (14.0-18.0); Immature Granulocytes # (auto) 0.25 K/uL (0.01-0.20); Immature Granulocytes % (auto) 1.6 %; Lymphocytes # (auto) 3.51 K/uL (1.2-3.4); Lymphocytes % (auto) 22.4 %; Mean Corpuscular Hemoglobin 33.5 pg (25.0-34.0); Mean Corpuscular Hgb Conc 34.5 g/dL (32.0-36.0); Mean Corpuscular Volume 97.1 fL (80.0-100.0); Mean Platelet Volume 10.1 fL (9.4-12.4); Monocytes # (auto) 1.19 K/uL (0.11-0.59); Monocytes % (auto) 7.6 %; Neutrophils # (auto) 9.72 K/uL (1.40-6.50); Neutrophils % (auto) 62.2 %; Platelet Count 182 K/uL (130-400); RDW Coefficient of Variation 15.4 % (11.5-14.5); RDW Standard Deviation 54.8 fL (36.4-46.3); Red Blood Count 3.43 M/uL (4.70-6.10); White Blood Count 15.64 K/ul (4.8-10.8)
[2023-02-27 07:11] LABS: Albumin Level 3.3 gm/dl (3.4-5.0); BUN Creatinine Ratio 17.1 (10-20); Bilirubin Direct 1.1 mg/dl (0-0.2); Bilirubin,Total 3.1 mg/dl (0.2-1.0); Calcium 10.1 mg/dl (8.6-10.3); Creatinine Clr Calc Pharmacy 23.7 ml/min; Est GFR (African American) 16.9 ml/min; Est GFR (Non-African American) 14.6 ml/min; Magnesium 1.9 mg/dl (1.7-2.4); Total Protein 7.9 gm/dl (6.0-8.3)
[2023-02-27 07:20] LABS: INR 1.6 (0.9-1.1); Prothrombin Time 16.2 Seconds (9.0-12.0)
[2023-02-27] MEDS: MAGNESIUM OXIDE 400 MG TAB PO SCH ×2 (08:39→21:14)
[2023-02-27] MEDS: CHOLECALCIFEROL 1,000 UNITS 25 MCG TAB PO SCH (08:39)
[2023-02-27] MEDS: METOPROLOL SUCC 50MG EXT REL TAB PO SCH (08:39)
[2023-02-27] MEDS: FOLIC ACID 1 MG TAB PO SCH (08:39)
[2023-02-27] MEDS: SPIRONOLACTONE 100 MG TAB PO SCH (08:39)
[2023-02-27] MEDS: rifAXIMin 550 MG TABLET PO SCH ×2 (08:39→21:14)
[2023-02-27] MEDS: FAMOTIDINE 20 MG TAB PO SCH (08:39)
[2023-02-27] MEDS: MICONAZOLE NITRATE POWDER 85 GM EXT SCH ×3 (08:40→21:14)
[2023-02-27] MEDS: LACTULOSE SYRUP 30 GM/45 ML UDP PO SCH ×4 (08:40→21:14)
--- NOTE | 2023-02-27 08:53 | Hospitalist Progress Note ---
Date of Service February 27, 2023 Assessment & Plan (1) Lethargy: Plan: Acute/unstable --> IMPROVING Increased lethargy/hepatic encephalopathy 02/25, ammonia 106, lactulose initiated/titrated and currently 30mg QID (2BM thus far), ammonia normalized on repeat to 64 and continues lactulose Rifaximin initiated BID 02/25 -- will need new rx at d/c CXR w/o acute process CO2 elevated on labs 02/25, obtained VBG c/w hypercapnia Overnight pulse ox to determine nocturnal hypoxia --> schedule 2L HS for now, will need outpt sleep study Checked UA/culture --> appeared infected, given Rocephin IV overnight 02/26, but switched to Zosyn given probable enterococcus and WBC elevated to 15.6k Monitor urine xc PTH low,appropriate given hypercalcemia. Per nephro, felt elevated Ca driven by diuretic therapy. Continue current course Ultimate goal is rehab/home for patient, however not had PT/OT evals prior --> ordered and therapy are planning to see today for eval Holding further diuretics for today, Cr 4.09. BNP decreased, in 200s currently. Discussed needing to see about timing to resume his diuretics but suspect bumex BID/spirinolactone and possibly metolazone as needed for weight gain and could have home health draw labs as states they have decent set up at home and therapy already arranged for her Palliative med consulted d/t advanced liver disease with overall poor prognosis -- is DNR but undergoing treatment to see about getting him home/managed in the meantime to continue abx/measures to improve above (2) UTI (urinary tract infection): Plan: new since admit, prior cx negative changed abx to Zosyn as above, monitor cultures discontinued soto -- able to use urinal and continue to monitor I&Os (3) Volume overload: Plan: Acute/unstable - high risk, 2nd to cirrhosis/progressive CKD/CHF, noncompliacne w/ meds at home over past year caring for his Nephrology consulted for diuretic assistance Bumex 4mg IV BID, sprinolactone 100mg PO daily, and metolazone 5mg daily added 02/17 w/ good diuresis and placed metolazone on hold (last dose 02/25) Held bumex/spironolactone yesterday (02/26) but did get dose in AM of bumex/spironolactone Per I/O, net negative 24.5L since admission Hold further diuretics, timing to resume per discussion w/ Nephro but monitor BMP in AM for now Poor candidate for HD d/t frailty and cirrhotic disease, but had been discussed Patient encouraged to elevate extremities for lymphedema/dependent edema - was able to get a recliner to elevate feet Renal dose meds/avoid nephrotoxins as able Monitor BMP in AM (4) Acute kidney injury superimposed on CKD: Plan: Acute/unstable - high risk. 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 Do consume beer, no excessive heavy use reported (educated to stop) --? 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 Palliaitve consulted, made DNR Monitor MELD score labs in AM (6) Anemia: Plan: Chronic/Stable - hx CML following w/ CCP -- in remission per discussion w/ Dr Lima, but she will order BCRABL PCR for eval - Checked iron panel, venofer x4 doses this admission per nephrology - B12 wnl, Folate low prior and continues on supplementation (improved from last month, not on home med list but pt states had been taking) - Fecal occult NEGATIVE - Reviewed CBC today Hgb stable at 11.5, holding further diuretics as above (7) S/P ablation of atrial fibrillation: Plan: Stable and chronic - Not currently on anticoagulation, ablation was remote while living in [place] - EKG on admit NSR, L anterior fascicular block, RBBB - Continue metoprolol succinate 50mg daily with hold parameters - clarified was previously on AC in September d/t blood clot --> Stopped d/t issues of GI bleeding reported (also has diarrhea baseline w/ ulcerative colitis) - Prior to ablation was only on aspirin but patient reported some bleeding w/ such --> continued discussions for at least ASA at d/c pending risk/benefit (8) Vitamin D deficiency: Plan: Acute/unstable Vit D low, replacement ordered PTh checked given hypercalcemia, appropriately low -- continue current course (9) Folate deficiency: Plan: Acute/unstable - prior low dec 2022, repeat ordered and replacement (10) Lymphedema: Plan: Chronic/stable Wound RN consulted, appreciate assistance - amlactin ordered Monitor for any infection, just completed course Zosyn for LE cellulitis legs less heavy, more mobility for patient will need outpt f/u Also w hx CML, to be monitored by CCP -- appears previously on Sprycel but patient d/c due to weight gain/edema. Was to start Gleevec per most recent note but doesn't appear this ever occurred. -- reached out to heme/onc, Dr Clarence fong discussion given complex case above --> was stopped meds ~6 months ago, in remission. She will check lab for further info Plan continued inpatient stay PT/OT consulted Admission and Anticipated Discharge Date Admission Date: February 12, 2023 Supervising Physician Co-Signing Physician Notes The patient was not seen by me. The chart was reviewed. Case discussed with SHERRON Clark. Agree with assessment and plan Subjective Patient evaluated around lunch, and cousins at bedside. Patient much more awake/alert and conversive. No CP/SOB/fevers. Legs much less swollen. Discussed holding further diuretics and monitoring kidney function. Hopefully will eval by PT/OT and see about home with home health/lab drawns and wound care. Discussed switching abx for urine cx and monitor. Tolerated previously for his cellulitis without issue. Soto removed this morning and using urinal. Continues to move bowels. will see about bringing in the mesalamine. Merrick notes his stools were darker earlier in admission and he refused the heparin. Discussed can deny but wanting to prevent clots while in hospital. Can discussed daily aspirin but can discuss in follow up. No abdominal pain. Good appetite reported. Physical Exam Physical Exam: General: WD obese male, chronically ill appearing, but does appear improved w/ regards to energy, more conversive today, and family at bedside HEENT; head normocephalic, eyes anicteric, trachea midline Resp: CTA, diminished in bases, on room air 99% CV: RRR, +systolic murmur, +LE edema/lymphedema IMPROVING, LE wrapped, no obvious drainage currently/tenderness GI: obese, tympanic, less distended, NONTENDER, no guarding/rebound : soto draining concentrated yellow/darkened urine MSK/Neuro: no focal deficit, ?slight tremor Skin: b/l LE lymphedema in wraps, slight jaundiced appearnace Psych: AOx3, cooperative Results & Data Results & Data Vital Signs (Past 12 Hours) Vital Signs Temp Pulse Pulse Resp BP Pulse Ox O2 Del Method 02/27/23 07:29 36.5 C 77 18 111/62 98 Room Air 02/26/23 21:42 36.6 C 77 18 119/61 97 Room Air Laboratory Results 02/27/23 02/27/23 02/27/23 Range/Units 10:17 10:17 06:38 WBC (4.8-10.8) K/ul RBC (4.70-6.10) M/uL Hgb (14.0-18.0) g/dl Hct (42.0-52.0) % MCV (80.0-100.0) fL MCH (25.0-34.0) pg MCHC (32.0-36.0) g/dL RDW Std Deviation (36.4-46.3) fL RDW Coeff of Howie (11.5-14.5) % Plt Count (130-400) K/uL MPV (9.4-12.4) fL Immature Gran % (Auto) % Neut % (Auto) % Lymph % (Auto) % [place] % (Auto) % Eos % (Auto) % Baso % (Auto) % Neut # (Auto) (1.40-6.50) K/uL Lymph # (Auto) (1.2-3.4) K/uL [place] # (Auto) (0.11-0.59) K/uL Eos # (Auto) (0-0.50) K/uL Baso # (Auto) (0-0.2) K/uL Immature Gran # (Auto) (0.01-0.20) K/uL PT (9.0-12.0) Seconds INR (0.9-1.1) Sodium (136-145) mmol/L Potassium (3.5-5.1) mmol/L Chloride (98-107) mmol/L Carbon Dioxide (21-32) mmol/L Anion Gap (3-11) BUN (6-23) mg/dl Creatinine (0.6-1.4) mg/dl Est Cr Clr Drug Dosing ml/min Est GFR ( Amer) ml/min Est GFR (Non-Af Amer) ml/min BUN/Creatinine Ratio (10-20) Glucose (70-99(Fasting)) mg/dl Calcium (8.6-10.3) mg/dl Magnesium (1.7-2.4) mg/dl Total Bilirubin (0.2-1.0) mg/dl Direct Bilirubin (0-0.2) mg/dl AST (13-39) U/L ALT (7-52) U/L Alkaline Phosphatase (34-104) U/L Ammonia 50.0 (18-72) umol/L B-Natriuretic Peptide (0-100) pg/ml Total Protein (6.0-8.3) gm/dl Albumin (3.4-5.0) gm/dl Procalcitonin 0.67 H (0-0.5) ng/ml BCR/abl Pending 02/27/23 02/27/23 02/27/23 Range/Units 06:35 06:35 06:35 WBC (4.8-10.8) K/ul RBC (4.70-6.10) M/uL Hgb (14.0-18.0) g/dl Hct (42.0-52.0) % MCV (80.0-100.0) fL MCH (25.0-34.0) pg MCHC (32.0-36.0) g/dL RDW Std Deviation (36.4-46.3) fL RDW Coeff of Howie (11.5-14.5) % Plt Count (130-400) K/uL MPV (9.4-12.4) fL Immature Gran % (Auto) % Neut % (Auto) % Lymph % (Auto) % [place] % (Auto) % Eos % (Auto) % Baso % (Auto) % Neut # (Auto) (1.40-6.50) K/uL Lymph # (Auto) (1.2-3.4) K/uL [place] # (Auto) (0.11-0.59) K/uL Eos # (Auto) (0-0.50) K/uL Baso # (Auto) (0-0.2) K/uL Immature Gran # (Auto) (0.01-0.20) K/uL PT 16.2 H (9.0-12.0) Seconds INR 1.6 H (0.9-1.1) Sodium 130 L (136-145) mmol/L Potassium 4.0 (3.5-5.1) mmol/L Chloride 86 L (98-107) mmol/L Carbon Dioxide 34 H (21-32) mmol/L Anion Gap 10 (3-11) BUN 69 H (6-23) mg/dl Creatinine 4.03 H (0.6-1.4) mg/dl Est Cr Clr Drug Dosing 23.7 ml/min Est GFR ( Amer) 16.9 ml/min Est GFR (Non-Af Amer) 14.6 ml/min BUN/Creatinine Ratio 17.1 (10-20) Glucose 113 H (70-99(Fasting)) mg/dl Calcium 10.1 (8.6-10.3) mg/dl Magnesium 1.9 (1.7-2.4) mg/dl Total Bilirubin 3.1 H (0.2-1.0) mg/dl Direct Bilirubin 1.1 H (0-0.2) mg/dl AST 27 (13-39) U/L ALT 9 (7-52) U/L Alkaline Phosphatase 63 (34-104) U/L Ammonia (18-72) umol/L B-Natriuretic Peptide 208 H (0-100) pg/ml Total Protein 7.9 (6.0-8.3) gm/dl Albumin 3.3 L (3.4-5.0) gm/dl Procalcitonin (0-0.5) ng/ml BCR/abl 02/27/23 Range/Units 06:35 WBC 15.64 H (4.8-10.8) K/ul RBC 3.43 L (4.70-6.10) M/uL Hgb 11.5 L (14.0-18.0) g/dl Hct 33.3 L (42.0-52.0) % MCV 97.1 (80.0-100.0) fL MCH 33.5 (25.0-34.0) pg MCHC 34.5 (32.0-36.0) g/dL RDW Std Deviation 54.8 H (36.4-46.3) fL RDW Coeff of Howie 15.4 H (11.5-14.5) % Plt Count 182 (130-400) K/uL MPV 10.1 (9.4-12.4) fL Immature Gran % (Auto) 1.6 % Neut % (Auto) 62.2 % Lymph % (Auto) 22.4 % [place] % (Auto) 7.6 % Eos % (Auto) 5.0 % Baso % (Auto) 1.2 % Neut # (Auto) 9.72 H (1.40-6.50) K/uL Lymph # (Auto) 3.51 H (1.2-3.4) K/uL [place] # (Auto) 1.19 H (0.11-0.59) K/uL Eos # (Auto) 0.78 H (0-0.50) K/uL Baso # (Auto) 0.19 (0-0.2) K/uL Immature Gran # (Auto) 0.25 H (0.01-0.20) K/uL PT (9.0-12.0) Seconds INR (0.9-1.1) Sodium (136-145) mmol/L Potassium (3.5-5.1) mmol/L Chloride (98-107) mmol/L Carbon Dioxide (21-32) mmol/L Anion Gap (3-11) BUN (6-23) mg/dl Creatinine (0.6-1.4) mg/dl Est Cr Clr Drug Dosing ml/min Est GFR ( Amer) ml/min Est GFR (Non-Af Amer) ml/min BUN/Creatinine Ratio (10-20) Glucose (70-99(Fasting)) mg/dl Calcium (8.6-10.3) mg/dl Magnesium (1.7-2.4) mg/dl Total Bilirubin (0.2-1.0) mg/dl Direct Bilirubin (0-0.2) mg/dl AST (13-39) U/L ALT (7-52) U/L Alkaline Phosphatase (34-104) U/L Ammonia (18-72) umol/L B-Natriuretic Peptide (0-100) pg/ml Total Protein (6.0-8.3) gm/dl Albumin (3.4-5.0) gm/dl Procalcitonin (0-0.5) ng/ml BCR/abl PG Care Time/CCT Total # of Minutes Spent Total Time Spent with Patient: Total time spent is greater than 50% in coordination of care (as documented) at patient's floor/unit and/or counseling patient: Coding Level of Care Code 30156 SUB INP/OBS CARE 3/50MIN Diagnoses Lethargy R53.83 UTI (urinary tract infection) N39.0 Volume overload E87.70 Acute kidney injury superimposed on CKD N17.9; N18.9 Cirrhosis K74.60 Anemia D64.9 Anemia type: unspecified type S/P ablation of atrial fibrillation Z98.890; Z86.79 Vitamin D deficiency E55.9 Folate deficiency E53.8 Lymphedema I89.0 (6) Anemia Anemia type: unspecified type Qualified Code(s): D64.9 - Anemia, unspecified
[2023-02-27] MEDS ORDERED: PIPERACILLIN/TAZOBACTAM 4.5 GM (over 30 mins) IV ONE (09:30)
--- NOTE | 2023-02-27 09:45 | Palliative Care Progress Note ---
Date of Service February 27, 2023 Assessment & Plan (1) Palliative care encounter: Plan: Mental status much improved from previous visit. He is able to recall my name and call his on the phone. He does have some insight into his illness and is able to tell me that he has liver and kidney problems. With his on speakerphone, we discussed his goals for care moving forward. He tells me that being able to get around and do things for himself and not be in bed all the time is an important quality of life indicator. He would want ongoing treatment for his illness as long as he is able to get up and around. We talked about concern that he will have ongoing problems with fluid balance and hospitalization. He will likely need to consider dialysis at some point. He says that he would prefer not to do dialysis but if it would help him live longer and he were not bedbound, he would be willing to do that. He did say that if his condition changed and he were likely to be bedbound intermediate, he would want to reconsider his goals. Discussed with Dr. Aquino and Cynthia Butler, hospitalist. Admission and Anticipated Discharge Date Admission Date: February 12, 2023 Subjective Awake and alert. Does not recall much about the last few days. Has good appetite. Denies pain, nausea, dyspnea. He reports that his legs and abdomen are less swollen than normal. Review of Systems Review of Systems: ESAS Pain 0/3 Dyspnea 0/3 Nausea 0/3 Drowsiness 0/3 Physical Exam Constitutional: no acute distress ENMT: Mouth: oral mucous membranes not dry Respiratory: normal respiratory effort; no labored breathing Cardiovascular: LE edema with vascular skin changes Gastrointestinal (Abdomen): distended, nontender Results & Data Vital Signs (Past 12 Hours) Vital Signs Temp Pulse Resp BP Pulse Ox O2 Del Method 02/27/23 07:29 97.7 F 77 18 111/62 98 Room Air PG Care Time/CCT Total # of Minutes Spent Total Time Spent: 35 Total Time Spent with Patient: Total time spent is greater than 50% in coordination of care (as documented) at patient's floor/unit and/or counseling patient:[id number] goals of care, coordination of care Coding Level of Care Code 45643 SUB INP/OBS CARE 2/35MIN Diagnoses Palliative care encounter Z51.5
--- NOTE | 2023-02-27 12:00 | Nephrology Progress Note ---
Date of Service February 27, 2023 Assessment & Plan (1) Acute kidney injury superimposed on CKD: Plan: Non-oliguric. Electrolytes acceptable. Creatinine increased to 4.0 mg/dL. Diuretics held due to intravascular volume depletion. Medications appropriate for kidney function. ANNA hemodynamic in the setting of cirrhosis, intravascular volume depletion, right sided CHF. Unfortunately, we have not seen significant renal recover. Creatinine was slowly improving but after recent UTI diagnosis and several days of diuresis, creatinine sadia. Mr. Bashir understands that he has a high risk for progression to ESRD. He was also informed that his life expectancy is limited due to ESLD. He was informed of potential complications with hemodialysis in patient's with ESLD. He was advised of risks of treatment and limitations given frailty. Given frailty and cirrhosis, Mr. Bashir is a very poor candidate for dialysis. Thankfully, there is no emergent indication at this time. (2) Anemia: Plan: H/H stable. Epogen 72166 units provided 02/20/23. Iron profile acceptable. (3) Bilateral edema of lower extremity: Plan: Combination of lymphedema, right sided CHF, and venous insufficiency. Diuretics held this AM due to intravascular depletion. (4) Hyponatremia: Plan: Free water restriction to 1 L/d. (5) Cirrhosis: Plan: MELD 30. Prognosis is unfortunately very poor. Palliative care appreciated. HE improved. Admission and Anticipated Discharge Date Admission Date: February 12, 2023 Subjective No acute events overnight. Mr. Bashir is feeling much better this AM. He reports improved strength. He was out of bed and walking to the bathroom. He told me that he feels ready to go home. Edema has continued to improve. He denies any fevers or chills. Vela is intact draining cloudy urine. Mild discomfort around the catheter noted. Denies abdominal pain. He does feel that his abdomen is more swollen this AM but this does not bother him. Stool is loose and bowel movements frequent. I met with Mr. Bashir after he met with Dr. Guillen. We reviewed goals of care. I had also discussed dialysis with him yesterday afternoon. He did not seem to recall many details from this conversation. He continues to express that his goal is to return home to spend time with his . He is receptive to rehab for strength. He told me that whatever else happens -- happens. He would like to try dialysis if it can keep him alive longer. He is not worried about the burden of the treatments. He does not seem to understand the severity of his illness. The patient's history and plan of care were discussed with Dr. Guillen and Cynthia Butler PA-C this AM. Review of Systems Review of Systems: All systems reviewed & are unremarkable except as noted in HPI & below Physical Exam Constitutional: WD/WN, vitals as above + frail appearing and comfortable; no acute distress Eyes: sclerae not anicteric Neck: normal visual inspection Respiratory: normal respiratory effort Auscultation: + diminished lung sounds Cardiovascular: Rate/Rhythm: regular rate and regular rhythm Heart Sounds: normal S1 and normal S2 Extremities: + edema (chronic b/l lymphedema) Gastrointestinal (Abdomen): Inspection/Auscultation: + abdomen distended and + abdominal edema (slight improvement) Skin: + turgor decreased, + jaundice and + crusts Neurologic: no focal motor deficits Motor/Sensory: + tremor and + asterixis; normal movement Psychiatric: Orientation: alert, oriented x 3 and oriented to person Affect: euthymic affect Results & Data Vital Signs (Past 12 Hours) Vital Signs Temp Pulse Resp BP Pulse Ox O2 Del Method 02/27/23 07:29 36.5 C 77 18 111/62 98 Room Air Laboratory Results Laboratory Results - last 24 hr 02/27/23 02/27/23 02/27/23 06:35 06:35 06:35 WBC 15.64 H RBC 3.43 L Hgb 11.5 L Hct 33.3 L MCV 97.1 MCH 33.5 MCHC 34.5 RDW Std Deviation 54.8 H RDW Coeff of Howie 15.4 H Plt Count 182 MPV 10.1 Immature Gran % (Auto) 1.6 Neut % (Auto) 62.2 Lymph % (Auto) 22.4 [place] % (Auto) 7.6 Eos % (Auto) 5.0 Baso % (Auto) 1.2 Neut # (Auto) 9.72 H Lymph # (Auto) 3.51 H [place] # (Auto) 1.19 H Eos # (Auto) 0.78 H Baso # (Auto) 0.19 Immature Gran # (Auto) 0.25 H PT 16.2 H INR 1.6 H Sodium 130 L Potassium 4.0 Chloride 86 L Carbon Dioxide 34 H Anion Gap 10 BUN 69 H Creatinine 4.03 H Est Cr Clr Drug Dosing 23.7 Est GFR ( Amer) 16.9 Est GFR (Non-Af Amer) 14.6 BUN/Creatinine Ratio 17.1 Glucose 113 H Calcium 10.1 Magnesium 1.9 Total Bilirubin 3.1 H Direct Bilirubin 1.1 H AST 27 ALT 9 Alkaline Phosphatase 63 Ammonia B-Natriuretic Peptide Total Protein 7.9 Albumin 3.3 L Procalcitonin BCR/abl 02/27/23 02/27/23 02/27/23 06:35 06:38 10:17 WBC RBC Hgb Hct MCV MCH MCHC RDW Std Deviation RDW Coeff of Howie Plt Count MPV Immature Gran % (Auto) Neut % (Auto) Lymph % (Auto) [place] % (Auto) Eos % (Auto) Baso % (Auto) Neut # (Auto) Lymph # (Auto) [place] # (Auto) Eos # (Auto) Baso # (Auto) Immature Gran # (Auto) PT INR Sodium Potassium Chloride Carbon Dioxide Anion Gap BUN Creatinine Est Cr Clr Drug Dosing Est GFR ( Amer) Est GFR (Non-Af Amer) BUN/Creatinine Ratio Glucose Calcium Magnesium Total Bilirubin Direct Bilirubin AST ALT Alkaline Phosphatase Ammonia 50.0 B-Natriuretic Peptide 208 H Total Protein Albumin Procalcitonin Pending BCR/abl 02/27/23 10:17 WBC RBC Hgb Hct MCV MCH MCHC RDW Std Deviation RDW Coeff of Howie Plt Count MPV Immature Gran % (Auto) Neut % (Auto) Lymph % (Auto) [place] % (Auto) Eos % (Auto) Baso % (Auto) Neut # (Auto) Lymph # (Auto) [place] # (Auto) Eos # (Auto) Baso # (Auto) Immature Gran # (Auto) PT INR Sodium Potassium Chloride Carbon Dioxide Anion Gap BUN Creatinine Est Cr Clr Drug Dosing Est GFR ( Amer) Est GFR (Non-Af Amer) BUN/Creatinine Ratio Glucose Calcium Magnesium Total Bilirubin Direct Bilirubin AST ALT Alkaline Phosphatase Ammonia B-Natriuretic Peptide Total Protein Albumin Procalcitonin BCR/abl Pending PG Care Time/CCT Total # of Minutes Spent Total Time Spent with Patient: Total time spent is greater than 50% in coordination of care (as documented) at patient's floor/unit and/or counseling patient: Coding Level of Care Code 81628 SUB INP/OBS CARE 3/50MIN Diagnoses Acute kidney injury superimposed on CKD N17.9; N18.9 Anemia D64.9 Anemia type: unspecified type Bilateral edema of lower extremity R60.0 Hyponatremia E87.1 Cirrhosis K74.60 (2) Anemia Anemia type: unspecified type Qualified Code(s): D64.9 - Anemia, unspecified
[2023-02-27] MEDS: allopurinoL 300 MG TAB PO SCH (12:45)
[2023-02-27] MEDS: PIPERACILLIN/TAZOBACTAM 3.375 GM in DEXTROSE 5% 100 ML IV SCH (16:51)
[2023-02-28] MEDS: PIPERACILLIN/TAZOBACTAM 3.375 GM in DEXTROSE 5% 100 ML IV SCH ×2 (01:21→10:16)
[2023-02-28] MEDS: HEPARIN SOD 5,000 UNIT/0.5 ML VIAL SQ SCH ×3 (05:26→21:40)
[2023-02-28] MEDS: LEVOTHYROXINE SODIUM 137 MCG TABLET PO SCH (05:36)
[2023-02-28 07:43] LABS: Hematocrit (blood only) 30.3 % (42.0-52.0); Hemoglobin 10.5 g/dl (14.0-18.0); Mean Corpuscular Hemoglobin 34.3 pg (25.0-34.0); Mean Corpuscular Hgb Conc 34.7 g/dL (32.0-36.0); Mean Platelet Volume 10.1 fL (9.4-12.4); Platelet Count 151 K/uL (130-400); RDW Coefficient of Variation 15.2 % (11.5-14.5); RDW Standard Deviation 54.7 fL (36.4-46.3); Red Blood Count 3.06 M/uL (4.70-6.10); White Blood Count 12.84 K/ul (4.8-10.8)
[2023-02-28 07:59] LABS: Est GFR (African American) 15.4 ml/min; Potassium 4.1 mmol/L (3.5-5.1)
[2023-02-28 08:00] LABS: Albumin Globulin Ratio 0.8 (0.9-2); Bilirubin,Total 2.9 mg/dl (0.2-1.0); Calcium 9.4 mg/dl (8.6-10.3); Creatinine Clr Calc Pharmacy 21.9 ml/min; Est GFR (Non-African American) 13.3 ml/min
[2023-02-28 08:08] LABS: INR 1.6 (0.9-1.1); Prothrombin Time 16.4 Seconds (9.0-12.0)
--- NOTE | 2023-02-28 08:27 | Hospitalist Progress Note ---
Date of Service February 28, 2023 Assessment & Plan (1) Lethargy: Plan: Acute/unstable --> IMPROVING Increased lethargy/hepatic encephalopathy 02/25, ammonia 106, lactulose initiated/titrated and currently 30mg QID (2BM thus far), ammonia normalized on repeat to 64 and continues lactulose Rifaximin initiated BID 02/25 -- will need new rx at d/c CXR w/o acute process CO2 elevated on labs 02/25, obtained VBG c/w hypercapnia Overnight pulse ox to determine nocturnal hypoxia --> schedule 2L HS for now, will need outpt sleep study Checked UA/culture --> finalized cx enterococcus, discussed w/ pharmacy and avoiding dapto (would be max dosing) and vanco given kidney function and will utilize Linezolid to complete course. Soto d/c on 02/27 PTH low,appropriate given hypercalcemia. Per nephro, felt elevated Ca driven by diuretic therapy. Continue current course Continue to hold diuretics for worsening renal function/contraction alkalosis, Cr worsening. Nephro following and will monitor over weekend/possible need for TDC/HD on Friday if not improved Decreased lactulose to BID and will monitor for any need to increase Palliative med consulted d/t advanced liver disease with overall poor prognosis -- is DNR but undergoing treatment to see about getting him home/managed in the meantime to continue abx/measures to improve above Ultimate goal is rehab/home for patient, however not had PT/OT evals prior -- rehab rec, but will plan for home w/ HH when able pending course over weekend (2) UTI (urinary tract infection): Plan: new since admit, prior cx negative Cx as above, switching to Linezolid today to complete course for UTI WBC trending down, monitor for any fevers No further soto (3) Acute kidney injury superimposed on CKD: Plan: Acute/unstable - volume overload combination cirrhosis/progressive CKD/CHF, noncompliacne w/ meds at home over past year caring for his . Baseline [employer] prior was 1.5-1.6, progressive decline over past year Nephrology consulted for diuretic assistance Worsening renal function, was -24.L negative since admission, currently remains at the same. Backed down on lactulose to prevent worsening diarrhea/volume loss Continue to hold diuretics (bumex 4mg IV BID, spironolactone, metolazone -- last dose metolazone 02/25) -- resumption TBD w/ nephrology Avoid renal toxins/renal dose meds as able and monitor BMP in AM (4) Volume overload: Plan: as above (5) Cirrhosis: Plan: Acute on chronic/unstable - high risk Known hx in chart, however patient denied knowing this. Do consume beer, no excessive heavy use reported (educated to stop) --? 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 >50% 3 month mortality discussed w/ patient. Prior Palliaitve consulted, made DNR Monitor MELD score labs in AM (6) Anemia: Plan: Chronic/Stable - hx CML following w/ CCP -- in remission per discussion w/ Dr Lima, but she will order BCRABL PCR for eval Checked iron panel, venofer x4 doses this admission per nephrology - B12 wnl, Folate low prior and continues on supplementation (improved from last month, not on home med list but pt states had been taking) - Fecal occult NEGATIVE - Reviewed CBC today Hgb stable , holding further diuretics as above so suspect some drop w/ volume accum (7) S/P ablation of atrial fibrillation: Plan: Stable and chronic - Not currently on anticoagulation, ablation was remote while living in [place] - EKG on admit NSR, L anterior fascicular block, RBBB - Continue metoprolol succinate 50mg daily with hold parameters - clarified was previously on AC in September d/t blood clot --> Stopped d/t issues of GI bleeding reported (also has diarrhea baseline w/ ulcerative colitis) - Prior to ablation was only on aspirin but patient reported some bleeding w/ such --> continued discussions for at least ASA at d/c pending risk/benefit (8) Vitamin D deficiency: Plan: Acute/unstable Vit D low, replacement ordered PTh checked given hypercalcemia, appropriately low -- continue current course (9) Folate deficiency: Plan: Acute/unstable - prior low dec 2022, repeat ordered and replacement (10) Lymphedema: Plan: Chronic/stable Wound RN consulted, appreciate assistance - amlactin ordered Monitor for any infection, just completed course Zosyn for LE cellulitis legs less heavy, more mobility for patient will need outpt f/u Also w hx CML, to be monitored by CCP -- appears previously on Sprycel but patient d/c due to weight gain/edema. Was to start Gleevec per most recent note but doesn't appear this ever occurred. -- reached out to heme/onc, Dr Lima for discussion given complex case above --> was stopped meds ~6 months ago, in remission. She will check lab for further info Plan continued inpatient stay, monitor renal function over weekend/holding diuretics if not improving, possible HD for friday PT/OT eval, rec rehab but patient prefer -- CM to follow Admission and Anticipated Discharge Date Admission Date: February 12, 2023 Supervising Physician Co-Signing Physician Notes The patient was not seen by me. The chart was reviewed. Case discussed with SHERRON Clark. Agree with assessment and plan Subjective eval this morning, up in chair. moving bowels, states about 4 times daily, will back lactulose to twice daily. No abdominal pain. Appetitie reported fair. Discussed WBC improving but Cr elevated. Discussed therapy evals and recs for rehab -- he prefers home w/ home health, lab draws, etc. Will touch base w/ Dr Aquino and if Cr improved/Urine finalized maybe can come up with game plan for diuretics w/ as needed metolazone and close follow up. Questions/concerns addressed. Per discussion w/ Dr Aquino, likely need to monitor through weekend and if kidneys not improved, TDC/HD for friday. Physical Exam Physical Exam: General: WD obese male, chronically ill appearing, but improvement in mentation/energy and stating he is wanting to go home when able, NAD at present and sitting up in recliner chair HEENT; head normocephalic, eyes anicteric, trachea midline Resp: CTA, diminished in bases but no w/c, on room air CV: RRR, +systolic murmur, +LE edema/lymphedema IMPROVING, LE wrapped, no obvious drainage currently/tenderness GI: obese, tympanic, less distended, NONTENDER, no guarding/rebound : soto draining concentrated yellow/darkened urine MSK/Neuro: no focal deficit, ?slight tremor Skin: b/l LE lymphedema in wraps, less jaundiced appearance Psych: AOx3, cooperative Results & Data Results & Data Vital Signs (Past 12 Hours) Vital Signs Temp Pulse Pulse Resp BP BP Pulse Ox 02/28/23 07:11 36.7 C 73 18 115/55 L 96 02/27/23 21:07 36.5 C 66 20 103/48 L 97 O2 Del Method 02/28/23 07:11 Room Air 02/27/23 21:07 Room Air Laboratory Results 02/28/23 02/28/23 02/28/23 Range/Units 06:43 06:43 06:43 WBC 12.84 H (4.8-10.8) K/ul RBC 3.06 L (4.70-6.10) M/uL Hgb 10.5 L (14.0-18.0) g/dl Hct 30.3 L (42.0-52.0) % MCV 99.0 (80.0-100.0) fL MCH 34.3 H (25.0-34.0) pg MCHC 34.7 (32.0-36.0) g/dL RDW Std Deviation 54.7 H (36.4-46.3) fL RDW Coeff of Howie 15.2 H (11.5-14.5) % Plt Count 151 (130-400) K/uL MPV 10.1 (9.4-12.4) fL PT 16.4 H (9.0-12.0) Seconds INR 1.6 H (0.9-1.1) Sodium 127 L (136-145) mmol/L Potassium 4.1 (3.5-5.1) mmol/L Chloride 86 L (98-107) mmol/L Carbon Dioxide 30 (21-32) mmol/L Anion Gap 11 (3-11) BUN 74 H (6-23) mg/dl Creatinine 4.36 H D (0.6-1.4) mg/dl Est Cr Clr Drug Dosing 21.9 ml/min Est GFR ( Amer) 15.4 ml/min Est GFR (Non-Af Amer) 13.3 ml/min BUN/Creatinine Ratio 17.0 (10-20) Glucose 102 H (70-99(Fasting)) mg/dl Calcium 9.4 (8.6-10.3) mg/dl Magnesium 2.0 (1.7-2.4) mg/dl Total Bilirubin 2.9 H (0.2-1.0) mg/dl AST 28 (13-39) U/L ALT 10 (7-52) U/L Alkaline Phosphatase 52 (34-104) U/L Total Protein 7.0 (6.0-8.3) gm/dl Albumin 3.0 L (3.4-5.0) gm/dl Globulin 4.0 (2.5-4.0) gm/dl Albumin/Globulin Ratio 0.8 L (0.9-2) PG Care Time/CCT Total # of Minutes Spent Total Time Spent with Patient: Total time spent is greater than 50% in coordination of care (as documented) at patient's floor/unit and/or counseling patient: Coding Level of Care Code 61186 SUB INP/OBS CARE 3/50MIN Diagnoses Lethargy R53.83 UTI (urinary tract infection) N39.0 Acute kidney injury superimposed on CKD N17.9; N18.9 Volume overload E87.70 Cirrhosis K74.60 Anemia D64.9 Anemia type: unspecified type S/P ablation of atrial fibrillation Z98.890; Z86.79 Vitamin D deficiency E55.9 Folate deficiency E53.8 Lymphedema I89.0 (6) Anemia Anemia type: unspecified type Qualified Code(s): D64.9 - Anemia, unspecified
[2023-02-28] MEDS: METOPROLOL SUCC 50MG EXT REL TAB PO SCH (10:07)
[2023-02-28] MEDS: MAGNESIUM OXIDE 400 MG TAB PO SCH ×2 (10:07→21:38)
[2023-02-28] MEDS: FOLIC ACID 1 MG TAB PO SCH (10:08)
[2023-02-28] MEDS: allopurinoL 300 MG TAB PO SCH (10:08)
[2023-02-28] MEDS: CHOLECALCIFEROL 1,000 UNITS 25 MCG TAB PO SCH (10:08)
[2023-02-28] MEDS: rifAXIMin 550 MG TABLET PO SCH ×2 (10:08→21:38)
[2023-02-28] MEDS: FAMOTIDINE 20 MG TAB PO SCH (10:08)
[2023-02-28] MEDS: LACTULOSE SYRUP 30 GM/45 ML UDP PO SCH ×2 (10:08→21:40)
[2023-02-28] MEDS: MICONAZOLE NITRATE POWDER 85 GM EXT SCH ×3 (10:11→21:39)
--- NOTE | 2023-02-28 13:42 | Nephrology Progress Note ---
Date of Service February 28, 2023 Assessment & Plan (1) Acute kidney injury superimposed on CKD: Plan: Non-oliguric. Electrolytes acceptable. Creatinine increased to 4.3 mg/dL. Diuretics held due to intravascular volume depletion. Medications appropriate for kidney function. ANNA hemodynamic in the setting of cirrhosis, intravascular volume depletion, right sided CHF. Unfortunately, we have not seen significant renal recovery. Creatinine was slowly improving but after recent UTI diagnosis and several days of diuresis, creatinine sadia. Mr. Bashir understands that he has a high risk for progression to ESRD. He was also informed that his life expectancy is limited due to ESLD. We discussed complications with hemodialysis in patient's with ESLD. He was advised of risks of treatment and limitations given frailty. Mr. Bashir is a very poor candidate for dialysis. Thankfully, there is no emergent indication at this time. However, if kidney function continues to decline or volume status cannot be reasonably controlled, dialysis would be indicated. I discussed the plan of care with Cynthia Butler PA-C and Dr. Reyna this AM. Continued inpatient monitoring is advised given tenuous kidney dysfunction (unless decision for home with hospice). If kidney function does not stabilize and volume status remain acceptable by Friday, I would then plan for TDC placement and initiation of dialysis. Due to decreased UOP and increased creatinine, urine sodium was sent this AM to monitor for signs of progressive HRS which would portend a significantly worse overall prognosis. (2) Anemia: Plan: H/H stable. Epogen 16634 units provided 02/20/23. Iron profile acceptable. (3) Bilateral edema of lower extremity: Plan: Combination of lymphedema, right sided CHF, and venous insufficiency. Diuretics held this AM due to intravascular depletion. (4) Hyponatremia: Plan: Free water restriction to 1 L/d. (5) Cirrhosis: Plan: MELD 30. Prognosis is unfortunately very poor. Palliative care appreciated. HE improved. Admission and Anticipated Discharge Date Admission Date: February 12, 2023 Subjective No acute events overnight. HE has been controlled with current therapy. Mr. Bashir is certainly feeling better than he was earlier in the week. He is more active and his strength is improving. He is moving his bowels at least 4 times per day. He denies any abdominal pain. Unfortunately, progressive abdominal distention noted. Overall, he states that he feels well and would really like to return home. We had another long conversation about his health and overall prognosis. He continue to process information regarding diagnoses of ESLD and advanced kidney dysfunction. Mr. Bashir's primary goal remains to return home and spend time with his . He stated that he values quality of life over quantity of life. However, he does not view dialysis treatments as significant barrier to quality of life. We discussed that dialysis can be associated with progressive debility and deconditioning. I explained how this can lead to need for assisted living or SNF placement to continue care. We discussed how treatments can add a burden of care. Potential benefit of HD would be improved volume management but overall I do not feel that hemodialysis will overall provide significant therapeutic benefit. Mr. Bashir expressed understanding. He continues to have conversations in this regard with his . We discussed his overall prognosis and limited life expectancy which is understandably very difficult information for him to process at this time. He would like to return home as soon as possible but does not want to go home with hospice care at this time. He was receptive to the idea of continued close monitoring over the weekend. If kidney function does not stabilize or improve, at this time, he would like to proceed with TDC placement and initiation of dialysis. Review of Systems Review of Systems: All systems reviewed & are unremarkable except as noted in HPI & below Physical Exam Constitutional: + frail appearing and comfortable; no acute distress Eyes: + anicteric sclerae; no corneal abnormality Neck: normal visual inspection Respiratory: normal respiratory effort Auscultation: lungs clear to auscultation bilaterally and + diminished lung sounds Cardiovascular: Rate/Rhythm: regular rate and regular rhythm Heart Sounds: normal S1 and normal S2 Extremities: + edema (chronic b/l lymphedema) Gastrointestinal (Abdomen): Inspection/Auscultation: + abdomen distended and + abdominal edema (increasing) Percussion/Palpation: + ascites; abdomen nontender and no guarding Skin: + turgor decreased Neurologic: no focal motor deficits Motor/Sensory: normal movement and no asterixis Psychiatric: Orientation: alert and oriented x 3 Results & Data Vital Signs (Past 12 Hours) Vital Signs Temp Pulse Resp BP Pulse Ox O2 Del Method 02/28/23 07:45 Room Air 02/28/23 07:11 36.7 C 73 18 115/55 L 96 Room Air Laboratory Results Laboratory Results - last 24 hr 02/28/23 02/28/23 02/28/23 06:43 06:43 06:43 WBC 12.84 H RBC 3.06 L Hgb 10.5 L Hct 30.3 L MCV 99.0 MCH 34.3 H MCHC 34.7 RDW Std Deviation 54.7 H RDW Coeff of Howie 15.2 H Plt Count 151 MPV 10.1 PT 16.4 H INR 1.6 H Sodium 127 L Potassium 4.1 Chloride 86 L Carbon Dioxide 30 Anion Gap 11 BUN 74 H Creatinine 4.36 H D Est Cr Clr Drug Dosing 21.9 Est GFR ( Amer) 15.4 Est GFR (Non-Af Amer) 13.3 BUN/Creatinine Ratio 17.0 Glucose 102 H Calcium 9.4 Magnesium 2.0 Total Bilirubin 2.9 H AST 28 ALT 10 Alkaline Phosphatase 52 Total Protein 7.0 Albumin 3.0 L Globulin 4.0 Albumin/Globulin Ratio 0.8 L Ur Random Sodium 02/28/23 Unknown WBC RBC Hgb Hct MCV MCH MCHC RDW Std Deviation RDW Coeff of Howie Plt Count MPV PT INR Sodium Potassium Chloride Carbon Dioxide Anion Gap BUN Creatinine Est Cr Clr Drug Dosing Est GFR ( Amer) Est GFR (Non-Af Amer) BUN/Creatinine Ratio Glucose Calcium Magnesium Total Bilirubin AST ALT Alkaline Phosphatase Total Protein Albumin Globulin Albumin/Globulin Ratio Ur Random Sodium 50 PG Care Time/CCT Total # of Minutes Spent Total Time Spent with Patient: Total time spent is greater than 50% in coordination of care (as documented) at patient's floor/unit and/or counseling patient: Coding Level of Care Code 77683 SUB INP/OBS CARE 3/50MIN Diagnoses Acute kidney injury superimposed on CKD N17.9; N18.9 Anemia D64.9 Anemia type: unspecified type Bilateral edema of lower extremity R60.0 Hyponatremia E87.1 Cirrhosis K74.60 (2) Anemia Anemia type: unspecified type Qualified Code(s): D64.9 - Anemia, unspecified
[2023-02-28] MEDS: LINEZOLID 600 MG/300 ML BAG IV SCH (14:27)
[2023-03-01] MEDS: LINEZOLID 600 MG/300 ML BAG IV SCH ×2 (00:48→12:29)
[2023-03-01] MEDS: HEPARIN SOD 5,000 UNIT/0.5 ML VIAL SQ SCH ×3 (06:08→21:27)
[2023-03-01] MEDS: LEVOTHYROXINE SODIUM 137 MCG TABLET PO SCH (06:08)
[2023-03-01 06:26] LABS: Hematocrit (blood only) 30.9 % (42.0-52.0); Hemoglobin 11.1 g/dl (14.0-18.0); Mean Corpuscular Hgb Conc 35.9 g/dL (32.0-36.0); Mean Corpuscular Volume 94.8 fL (80.0-100.0); Mean Platelet Volume 10.2 fL (9.4-12.4); Platelet Count 151 K/uL (130-400); RDW Coefficient of Variation 14.4 % (11.5-14.5); RDW Standard Deviation 49.8 fL (36.4-46.3); Red Blood Count 3.26 M/uL (4.70-6.10); White Blood Count 15.34 K/ul (4.8-10.8)
[2023-03-01 06:50] LABS: Albumin Level 3.3 gm/dl (3.4-5.0); BUN Creatinine Ratio 15.4 (10-20); Bilirubin Direct 1.1 mg/dl (0-0.2); Calcium 9.2 mg/dl (8.6-10.3); Creatinine Clr Calc Pharmacy 18.4 ml/min; Est GFR (African American) 12.4 ml/min; Est GFR (Non-African American) 10.7 ml/min; Magnesium 2.2 mg/dl (1.7-2.4); Potassium 4.3 mmol/L (3.5-5.1); Total Protein 7.7 gm/dl (6.0-8.3)
[2023-03-01 06:54] LABS: INR 1.5 (0.9-1.1); Prothrombin Time 15.6 Seconds (9.0-12.0)
[2023-03-01] MEDS: FOLIC ACID 1 MG TAB PO SCH (08:25)
[2023-03-01] MEDS: LACTULOSE SYRUP 30 GM/45 ML UDP PO SCH ×2 (08:25→21:26)
[2023-03-01] MEDS: FAMOTIDINE 20 MG TAB PO SCH (08:25)
[2023-03-01] MEDS: METOPROLOL SUCC 50MG EXT REL TAB PO SCH (08:26)
[2023-03-01] MEDS: MAGNESIUM OXIDE 400 MG TAB PO SCH ×2 (08:26→21:27)
[2023-03-01] MEDS: CHOLECALCIFEROL 1,000 UNITS 25 MCG TAB PO SCH (08:26)
[2023-03-01] MEDS: rifAXIMin 550 MG TABLET PO SCH ×2 (08:26→21:26)
[2023-03-01] MEDS: MICONAZOLE NITRATE POWDER 85 GM EXT SCH ×3 (08:28→21:27)
--- NOTE | 2023-03-01 08:46 | Hospitalist Progress Note ---
Date of Service March 01, 2023 Assessment & Plan (1) Volume overload: Plan: Multifactorial -- cirrhosis, progressive CKD Planning for TDC/HD for friday, discussion between Dr Quintero and Dr Smith (confirmed w/ Dr Smith, on for Friday), will make NPO at midnight on Friday Decrease fluid restriction to 1L/daily Monitor labs in AM (2) Acute kidney injury superimposed on CKD: Plan: Acute/unstable - volume overload combination cirrhosis/progressive CKD/CHF, noncompliacne w/ meds at home over past year caring for his . Baseline [employer] prior was 1.5-1.6, progressive decline over past year Nephrology consulted for diuretic assistance Worsening renal function, was -24.L negative since admission, now -23.6L Further fluid restricting given inability to continue diuretics/intravascular depression. Urine Na 50, checked for prognostic reasons for HRS Continue to hold diuretics (bumex 4mg IV BID, spironolactone, metolazone -- last dose metolazone 02/25) -- resumption TBD w/ nephrology/HD plans as above given Cr worsening, currently at 5.2 Avoid nephrotoxins/renal dose meds as able BMP in AM (3) Lethargy: Plan: Acute/unstable --> IMPROVED/stable Increased lethargy/hepatic encephalopathy 02/25, ammonia 106, lactulose initiated/titrated and currently 30mg QID (2BM thus far), ammonia normalized on repeat to 64 and continues lactulose Rifaximin initiated BID 02/25 -- will need new rx at d/c CXR w/o acute process CO2 elevated on labs 02/25, obtained VBG c/w hypercapnia Overnight pulse ox to determine nocturnal hypoxia --> schedule 2L HS for now, will need outpt sleep study UA/culture obtained, finalized enterococcus --> placed on Linezolid to avoid vanc/dapto given his kidney function PTH low,appropriate given hypercalcemia. Per nephro, felt elevated Ca driven by diuretic therapy. Continue current course Continue to hold diuretics for worsening renal function/contraction alkalosis, Cr worsening. Nephro following as above, planning for HD this upcoming week Decreased lactulose to BID and will monitor for any need to increase -- reports moving bowels at least 3x/day Palliative med consulted d/t advanced liver disease with overall poor prognosis -- is DNR but undergoing treatment to see about getting him home/managed in the meantime to continue abx/measures to improve above Ultimate goal is rehab/home for patient, however not had PT/OT evals prior -- rehab rec, but will plan for home w/ HH when able (4) UTI (urinary tract infection): Plan: new since admit, prior cx negative Cx as above, switched to Linezolid to complete course for UTI WBC trending up, but afebrile, monitor Soto since discontinued (5) Cirrhosis: Plan: Acute on chronic/unstable - high risk Known hx in chart, however patient denied knowing this. Do consume beer, no excessive heavy use reported (educated to stop) --? 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 Repeat ammonia if any further/worsening confusion/not moving bowels Started Xifaxan 550mg BID 02/25, continue at d/c Limited US 02/24 w/o ascites seen MELD score 33 , poor prognosis. >50% 3 month mortality discussed w/ patient. Prior Palliaitve consulted, made DNR Discussed with prior in stay, will need to have GI/Hepatology follow up q 6 months with U/S and AFP Monitor MELD labs Na 121, no lightheaded/dizziness, monitor (6) Anemia: Plan: Chronic/Stable hx CML following w/ CCP -- in remission per discussion w/ Dr Lima, but she will order BCRABL PCR for eval Checked iron panel, Venofer x4 doses this admission per nephrology - B12 wnl, Folate low prior and continues on supplementation (improved from last month, not on home med list but pt states had been taking) - Fecal occult NEGATIVE CBC reviewed, hgb stable (7) S/P ablation of atrial fibrillation: Plan: Stable and chronic - Not currently on anticoagulation, ablation was remote while living in [place] - EKG on admit NSR, L anterior fascicular block, RBBB - Continue metoprolol succinate 50mg daily with hold parameters - clarified was previously on AC in September d/t blood clot --> Stopped d/t issues of GI bleeding reported (also has diarrhea baseline w/ ulcerative colitis) - Prior to ablation was only on aspirin but patient reported some bleeding w/ such --> continued discussions for at least ASA at d/c pending risk/benefit (8) Vitamin D deficiency: Plan: Acute/unstable Vit D low, replacement ordered PTh checked given hypercalcemia, appropriately low -- continue current course (9) Folate deficiency: Plan: Acute/unstable - prior low dec 2022, repeat ordered and replacement (10) Lymphedema: Plan: Chronic/stable Wound RN consulted, appreciate assistance - amlactin ordered Monitor for any infection, just completed course Zosyn for LE cellulitis legs less heavy, more mobility for patient will need outpt f/u Also w hx CML, to be monitored by CCP -- appears previously on Sprycel but patient d/c due to weight gain/edema. Was to start Gleevec per most recent note but doesn't appear this ever occurred. -- reached out to heme/onc, Dr Lima for discussion given complex case above --> was stopped meds ~6 months ago, in remission. She will check lab for further info Plan contineud inpatient stay, restrict 1L/daily, planning for TDC friday w/ Dr Smith/HD to begin Admission and Anticipated Discharge Date Admission Date: February 12, 2023 Supervising Physician Co-Signing Physician Notes The patient was not seen by me. The chart was reviewed. Case discussed with SHERRON Clark. Agree with assessment and plan Subjective eval this morning, doing alright. fatigued. didn't get to sleep until around 6 this morning. discussed worsening renal function/likely need for HD. Contacted by phone in room for discussion/questions and why not today -- discussed no emergent need but if hyperkalemia/unstable VS would prompt more urgency but if unable to resume oral diuretics. Also discussed restricting fluid intake to 1L/daily per discussion with Dr Vegas this morning, who patient states he did see. states he moved bowels at least 3 times yesterday w/ decreased lactulose and will continue BID for now/reduce if continued loose stools and titrate back up if not moving bowels. discussed switched abx for urine as well for tx uti w/ Linezolid. Questions/concerns addressed at this time. Physical Exam Physical Exam: General: WD obese male, chronically ill appearing, but improvement in mentation/energy and stating he is wanting to go home when able, NAD at present and sitting up in recliner chair HEENT; head normocephalic, eyes anicteric, trachea midline Resp: CTA, diminished in bases, expiratory wheezing posterior lower lung andres, no crackles, on room air CV: RRR, +systolic murmur, +LE edema/lymphedema stable, LE wrapped, no obvious drainage currently/tenderness GI: obese, tympanic, less distended, NONTENDER, no guarding/rebound : no further soto MSK/Neuro: no focal deficit, ?slight tremor Skin: b/l LE lymphedema in wraps, slight jaundiced appearance Psych: AOx3, cooperative Results & Data Results & Data Vital Signs (Past 12 Hours) Vital Signs Temp Pulse Resp BP BP Pulse Ox O2 Del Method 03/01/23 07:17 36.6 C 65 16 113/50 L 96 Room Air 02/28/23 21:26 36.9 C 66 20 110/49 L 98 Room Air Laboratory Results 03/01/23 03/01/23 03/01/23 Range/Units 06:04 06:04 06:04 WBC 15.34 H (4.8-10.8) K/ul RBC 3.26 L (4.70-6.10) M/uL Hgb 11.1 L (14.0-18.0) g/dl Hct 30.9 L (42.0-52.0) % MCV 94.8 (80.0-100.0) fL MCH 34.0 (25.0-34.0) pg MCHC 35.9 (32.0-36.0) g/dL RDW Std Deviation 49.8 H (36.4-46.3) fL RDW Coeff of Howie 14.4 (11.5-14.5) % Plt Count 151 (130-400) K/uL MPV 10.2 (9.4-12.4) fL PT 15.6 H (9.0-12.0) Seconds INR 1.5 H (0.9-1.1) Sodium 121 L (136-145) mmol/L Potassium 4.3 (3.5-5.1) mmol/L Chloride 82 L (98-107) mmol/L Carbon Dioxide 28 (21-32) mmol/L Anion Gap 11 (3-11) BUN 80 H (6-23) mg/dl Creatinine 5.20 H* D (0.6-1.4) mg/dl Est Cr Clr Drug Dosing 18.4 ml/min Est GFR ( Amer) 12.4 ml/min Est GFR (Non-Af Amer) 10.7 ml/min BUN/Creatinine Ratio 15.4 (10-20) Glucose 137 H (70-99(Fasting)) mg/dl Calcium 9.2 (8.6-10.3) mg/dl Magnesium 2.2 (1.7-2.4) mg/dl Total Bilirubin 3.0 H (0.2-1.0) mg/dl Direct Bilirubin 1.1 H (0-0.2) mg/dl AST 33 (13-39) U/L ALT 13 (7-52) U/L Alkaline Phosphatase 53 (34-104) U/L Total Protein 7.7 (6.0-8.3) gm/dl Albumin 3.3 L (3.4-5.0) gm/dl Ur Random Sodium mmol/L 02/28/23 Range/Units Unknown WBC (4.8-10.8) K/ul RBC (4.70-6.10) M/uL Hgb (14.0-18.0) g/dl Hct (42.0-52.0) % MCV (80.0-100.0) fL MCH (25.0-34.0) pg MCHC (32.0-36.0) g/dL RDW Std Deviation (36.4-46.3) fL RDW Coeff of Howie (11.5-14.5) % Plt Count (130-400) K/uL MPV (9.4-12.4) fL PT (9.0-12.0) Seconds INR (0.9-1.1) Sodium (136-145) mmol/L Potassium (3.5-5.1) mmol/L Chloride (98-107) mmol/L Carbon Dioxide (21-32) mmol/L Anion Gap (3-11) BUN (6-23) mg/dl Creatinine (0.6-1.4) mg/dl Est Cr Clr Drug Dosing ml/min Est GFR ( Amer) ml/min Est GFR (Non-Af Amer) ml/min BUN/Creatinine Ratio (10-20) Glucose (70-99(Fasting)) mg/dl Calcium (8.6-10.3) mg/dl Magnesium (1.7-2.4) mg/dl Total Bilirubin (0.2-1.0) mg/dl Direct Bilirubin (0-0.2) mg/dl AST (13-39) U/L ALT (7-52) U/L Alkaline Phosphatase (34-104) U/L Total Protein (6.0-8.3) gm/dl Albumin (3.4-5.0) gm/dl Ur Random Sodium 50 mmol/L PG Care Time/CCT Total # of Minutes Spent Total Time Spent with Patient: Total time spent is greater than 50% in coordination of care (as documented) at patient's floor/unit and/or counseling patient: Coding Level of Care Code 99907 SUB INP/OBS CARE 3/50MIN Diagnoses Volume overload E87.70 Acute kidney injury superimposed on CKD N17.9; N18.9 Lethargy R53.83 UTI (urinary tract infection) N39.0 Cirrhosis K74.60 Anemia D64.9 Anemia type: unspecified type S/P ablation of atrial fibrillation Z98.890; Z86.79 Vitamin D deficiency E55.9 Folate deficiency E53.8 Lymphedema I89.0 (6) Anemia Anemia type: unspecified type Qualified Code(s): D64.9 - Anemia, unspecified
--- NOTE | 2023-03-01 08:54 | Nephrology Progress Note ---
Date of Service March 01, 2023 Assessment & Plan (1) Acute kidney injury superimposed on CKD: Plan: * Progressive ANNA despite holding diuretic therapy * Mr. Bashir was A&O x3 this am. We discussed [employer] and hospice care. He understands that he is suffering from both liver failure and kidney failure. He wishes a trial of dialysis to see if his condition will allow him to return home and continue caring for his * Will consult Vascular Surgery for IJ THC on Friday or Friday * Will ask Case Management to [facility] Dr[facility] Giraldo * Limit oral free water intake to 1 L/day due to mild hyponatremia * PRP in am (2) Anemia: Plan: * H/H stable * Epogen 92830 units provided 02/20/23 (3) Bilateral edema of lower extremity: Plan: * Combination of lymphedema, right sided CHF, and venous insufficiency * Diuretics held due to intravascular depletion and progressive renal insufficiency (4) Hyponatremia: Plan: * Free water restriction to 1 L/d. (5) Cirrhosis: Plan: * MELD 30. Prognosis is very poor. Palliative care appreciated. HE improved. Admission and Anticipated Discharge Date Admission Date: February 12, 2023 Subjective Mr. Bashir was evaluated in his hospital room. He complains of persistent LE swelling Review of Systems Constitutional: no fever Eyes: no worsening vision Ear, Nose, Mouth, Throat: no problem reported Respiratory: no cough and no dyspnea Cardiovascular: no chest pain Additional Comments: + LE swelling Gastrointestinal: no abdominal pain Genitourinary: no dysuria, no urinary hesitancy or no hematuria Musculoskeletal: no back pain Integumentary: no rash Neurologic: no falls, no dizziness and no confusion Physical Exam Constitutional: + morbidly obese Eyes: PERRL, conjunctivae normal, anicteric sclerae ENMT: external ear and nose normal, oropharynx normal Neck: trachea midline, no thyromegaly Respiratory: normal respiratory effort, lungs clear to auscultation Cardiovascular: Rate/Rhythm: regular rate and regular rhythm Heart Sounds: + murmur Extremities: + edema (tense pretibial edema) Gastrointestinal (Abdomen): Inspection/Auscultation: + abdomen distended Percussion/Palpation: abdomen nontender and no guarding Neurologic: awake; not confused Results & Data Vital Signs (Past 12 Hours) Vital Signs Temp Pulse Resp BP BP Pulse Ox O2 Del Method 03/01/23 07:17 36.6 C 65 16 113/50 L 96 Room Air 02/28/23 21:26 36.9 C 66 20 110/49 L 98 Room Air Laboratory Results Laboratory Tests 02/27/23 03/01/23 03/01/23 06:38 06:04 06:04 WBC 15.34 H Hgb 11.1 L Hct 30.9 L Plt Count 151 Sodium 121 L Potassium 4.3 Chloride 82 L Carbon Dioxide 28 BUN 80 H Creatinine 5.20 H* D Glucose 137 H Calcium 9.2 Magnesium 2.2 Total Bilirubin 3.0 H AST 33 ALT 13 Alkaline Phosphatase 53 Ammonia 50.0 PG Care Time/CCT Total # of Minutes Spent Total Time Spent with Patient: Total time spent is greater than 50% in coordination of care (as documented) at patient's floor/unit and/or counseling patient: Coding Level of Care Code 38530 SUB INP/OBS CARE 3/50MIN Diagnoses Acute kidney injury superimposed on CKD N17.9; N18.9 Anemia D64.9 Anemia type: unspecified type Bilateral edema of lower extremity R60.0 Hyponatremia E87.1 Cirrhosis K74.60 (2) Anemia Anemia type: unspecified type Qualified Code(s): D64.9 - Anemia, unspecified
[2023-03-01] MEDS: allopurinoL 300 MG TAB PO SCH (12:29)
[2023-03-01] MEDS: MESALAMINE PO SCH (17:45)
[2023-03-02] MEDS: LINEZOLID 600 MG/300 ML BAG IV SCH ×2 (01:05→12:35)
[2023-03-02] MEDS: LEVOTHYROXINE SODIUM 137 MCG TABLET PO SCH (05:51)
[2023-03-02] MEDS: HEPARIN SOD 5,000 UNIT/0.5 ML VIAL SQ SCH ×3 (05:52→20:34)
[2023-03-02 06:40] LABS: Hematocrit (blood only) 30.2 % (42.0-52.0); Hemoglobin 10.9 g/dl (14.0-18.0); Mean Corpuscular Hemoglobin 34.6 pg (25.0-34.0); Mean Corpuscular Hgb Conc 36.1 g/dL (32.0-36.0); Mean Corpuscular Volume 95.9 fL (80.0-100.0); Mean Platelet Volume 10.2 fL (9.4-12.4); Platelet Count 149 K/uL (130-400); RDW Coefficient of Variation 14.3 % (11.5-14.5); RDW Standard Deviation 50.1 fL (36.4-46.3); Red Blood Count 3.15 M/uL (4.70-6.10); White Blood Count 14.98 K/ul (4.8-10.8)
[2023-03-02 07:01] LABS: INR 1.4 (0.9-1.1); Prothrombin Time 14.6 Seconds (9.0-12.0)
[2023-03-02 07:13] LABS: Albumin Level 3.4 gm/dl (3.4-5.0); BUN Creatinine Ratio 14.3 (10-20); Bilirubin,Total 2.9 mg/dl (0.2-1.0); Calcium 9.2 mg/dl (8.6-10.3); Creatinine Clr Calc Pharmacy 15.5 ml/min; Est GFR (African American) 10.9 ml/min; Est GFR (Non-African American) 9.4 ml/min; Potassium 4.4 mmol/L (3.5-5.1); Total Protein 7.5 gm/dl (6.0-8.3)
--- NOTE | 2023-03-02 07:46 | Hospitalist Progress Note ---
Date of Service March 02, 2023 Assessment & Plan (1) Volume overload: Plan: Multifactorial -- cirrhosis, progressive CKD Holding further oral/IV diuretics for progressive renal decline Decreased fluid restriction to 1L/daily 03/01 -> Na at 121 on repeat. Ordering 2mg IV bumex BID/NaCl 1gm PO BID to assist with serum sodium level per nephrology Checking renal US to eval hydro Soto to be placed As discussed w/ patient/ yesterday (confirmed w/ Dr Smith) NPO at midnight and will plan for TDC Monitor labs on repeat (2) Acute kidney injury superimposed on CKD: Plan: Acute/unstable - volume overload combination cirrhosis/progressive CKD/CHF, noncompliacne w/ meds at home over past year caring for his . 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 Urine Na 50, checked for prognostic reasons for HRS Labs reviewed, Cr currently 5.8, anion gap 12. Holding diuretics up until today, bumex ordered by nephrology w/ NaCl for serum sodium (urine osm 310) and planning NPO at midnight/TDC for tomorrow to begin HD. Renal Us repeat eval ordered Monitor labs in AM (3) Lethargy: Plan: Acute/unstable --> IMPROVED/stable Increased lethargy/hepatic encephalopathy 02/25, ammonia 106, lactulose initiated/titrated and currently 30mg QID (2BM thus far), ammonia normalized on repeat to 64 and continues lactulose Rifaximin initiated BID 02/25 -- will need new rx at d/c CXR w/o acute process CO2 elevated on labs 02/25, obtained VBG c/w hypercapnia Overnight pulse ox to determine nocturnal hypoxia --> schedule 2L HS for now, will need outpt sleep study UA/culture obtained, finalized enterococcus --> placed on Linezolid to avoid vanc/dapto given his kidney function PTH low,appropriate given hypercalcemia. Per nephro, felt elevated Ca driven by diuretic therapy. Continue current course Mentation stable, moving bowels. Ammonia 46 on repeat. Will continue lactulose, TID for now Palliative consulted, DNR but wanting to undergo treatment as offered. Ultimate goal is rehab/home for patient, however not had PT/OT evals prior -- rehab rec, but will plan for home w/ HH when able (4) UTI (urinary tract infection): Plan: new since admit, prior cx negative Cx as above, switched to Linezolid to complete course for UTI WBC trended up, improving on repeat since switching to LInezolid. Soto since d/c abd as outlined, planning soto placement per nephrology (5) Cirrhosis: Plan: Acute on chronic/unstable - high risk Known hx in chart, however patient denied knowing this. Do consume beer, no excessive heavy use reported (educated to stop) --? 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 Repeat ammonia stable but less BMs and will change to TID and monitor Started Xifaxan 550mg BID 02/25, continue at d/c Limited US 02/24 w/o ascites seen MELD score 32 , poor prognosis. >50% 3 month mortality discussed w/ patient. Prior Palliaitve consulted, made DNR GI/Hepatology follow up q 6 months with U/S and AFP Monitor MELD labs Nephrology as above to assist w/ volume management (6) Anemia: Plan: Chronic/Stable hx CML following w/ CCP -- in remission per discussion w/ Dr Lima, but she will order BCRABL PCR for eval Checked iron panel, Venofer x4 doses this admission per nephrology - B12 wnl, Folate low prior and continues on supplementation (improved from last month, not on home med list but pt states had been taking) - Fecal occult NEGATIVE CBC reviewed, hgb stable (7) S/P ablation of atrial fibrillation: Plan: Stable and chronic - Not currently on anticoagulation, ablation was remote while living in [place] - EKG on admit NSR, L anterior fascicular block, RBBB - Continue metoprolol succinate 50mg daily with hold parameters - clarified was previously on AC in September d/t blood clot --> Stopped d/t issues of GI bleeding reported (also has diarrhea baseline w/ ulcerative colitis) - Prior to ablation was only on aspirin but patient reported some bleeding w/ such --> continued discussions for at least ASA at d/c pending risk/benefit (8) Vitamin D deficiency: Plan: Acute/unstable Vit D low, replacement ordered PTh checked given hypercalcemia, appropriately low -- continue current course (9) Folate deficiency: Plan: Acute/unstable - prior low dec 2022, repeat ordered and replacement (10) Lymphedema: Plan: Chronic/stable Wound RN consulted, appreciate assistance - amlactin ordered Monitor for any infection, just completed course Zosyn for LE cellulitis legs less heavy, more mobility for patient will need outpt f/u Also w hx CML, to be monitored by CCP -- appears previously on Sprycel but patient d/c due to weight gain/edema. Was to start Gleevec per most recent note but doesn't appear this ever occurred. -- reached out to heme/onc, Dr Lima for discussion given complex case above --> was stopped meds ~6 months ago, in remission. She will check lab for further info Plan continued inpatient stay renal US for eval hydro, Bumex IV BID/NACL PO per nephrology NPO at midnight for placement TDC with Dr Smith for tomorrow Admission and Anticipated Discharge Date Admission Date: February 12, 2023 Supervising Physician Co-Signing Physician Notes The patient was not seen by me. The chart was reviewed. Case discussed with SHERRON Clark. Agree with assessment and plan Subjective eval this morning, getting ready to go down to ultrasound. Breathing stable, states moving his bowels. Nephrology and vascular following, planning for tunneled dialysis catheter for tomorrow, NPO at midnight. To have soto placed to record I&O as well and nephrology ordered IV bumex and PO Nacl to help correct serum na level. Remains on 1L free water restriction. Physical Exam Physical Exam: General: WD obese male, chronically ill appearing, getting up out of bed to go to ultrasound, NAD but requesting to know why we are doing this test HEENT; head normocephalic, eyes anicteric, trachea midline Resp: CTA, diminished in bases, expiratory wheezing posterior lower lung andres resolved, no crackles, on room air CV: RRR, +systolic murmur, +LE edema/lymphedema stable, LE wrapped, no obvious drainage currently/tenderness GI: obese, tympanic, distension, Nontender, no rebound/guarding : no soto MSK/Neuro: no focal deficit Skin: b/l LE lymphedema in wraps, slight jaundiced appearance Psych: AOx3, cooperative Results & Data Results & Data Vital Signs (Past 12 Hours) Vital Signs Temp Pulse Resp BP BP Pulse Ox O2 Del Method 03/02/23 07:41 36.6 C 69 18 114/67 96 Room Air 03/01/23 21:08 36.3 C L 65 20 100/51 L 97 Room Air Laboratory Results 03/02/23 03/02/23 03/02/23 Range/Units 07:29 06:13 06:13 WBC (4.8-10.8) K/ul RBC (4.70-6.10) M/uL Hgb (14.0-18.0) g/dl Hct (42.0-52.0) % MCV (80.0-100.0) fL MCH (25.0-34.0) pg MCHC (32.0-36.0) g/dL RDW Std Deviation (36.4-46.3) fL RDW Coeff of Howie (11.5-14.5) % Plt Count (130-400) K/uL MPV (9.4-12.4) fL PT 14.6 H (9.0-12.0) Seconds INR 1.4 H (0.9-1.1) Sodium (136-145) mmol/L Potassium (3.5-5.1) mmol/L Chloride (98-107) mmol/L Carbon Dioxide (21-32) mmol/L Anion Gap (3-11) BUN (6-23) mg/dl Creatinine (0.6-1.4) mg/dl Est Cr Clr Drug Dosing ml/min Est GFR ( Amer) ml/min Est GFR (Non-Af Amer) ml/min BUN/Creatinine Ratio (10-20) Glucose (70-99(Fasting)) mg/dl Osmolality (280-300) mOsm/kg Calcium (8.6-10.3) mg/dl Total Bilirubin (0.2-1.0) mg/dl Direct Bilirubin (0-0.2) mg/dl AST (13-39) U/L ALT (7-52) U/L Alkaline Phosphatase (34-104) U/L Ammonia 46.0 (18-72) umol/L Total Protein (6.0-8.3) gm/dl Albumin (3.4-5.0) gm/dl Procalcitonin 1.27 H (0-0.5) ng/ml Urine Osmolality (500-800) mOsm/kg Hep Bs Antibody, Quant 03/02/23 03/02/23 03/02/23 Range/Units 06:13 06:13 01:10 WBC 14.98 H (4.8-10.8) K/ul RBC 3.15 L (4.70-6.10) M/uL Hgb 10.9 L (14.0-18.0) g/dl Hct 30.2 L (42.0-52.0) % MCV 95.9 (80.0-100.0) fL MCH 34.6 H (25.0-34.0) pg MCHC 36.1 H (32.0-36.0) g/dL RDW Std Deviation 50.1 H (36.4-46.3) fL RDW Coeff of Howie 14.3 (11.5-14.5) % Plt Count 149 (130-400) K/uL MPV 10.2 (9.4-12.4) fL PT (9.0-12.0) Seconds INR (0.9-1.1) Sodium 121 L (136-145) mmol/L Potassium 4.4 (3.5-5.1) mmol/L Chloride 81 L (98-107) mmol/L Carbon Dioxide 28 (21-32) mmol/L Anion Gap 12 H (3-11) BUN 83 H (6-23) mg/dl Creatinine 5.80 H* D (0.6-1.4) mg/dl Est Cr Clr Drug Dosing 15.5 ml/min Est GFR ( Amer) 10.9 ml/min Est GFR (Non-Af Amer) 9.4 ml/min BUN/Creatinine Ratio 14.3 (10-20) Glucose 129 H (70-99(Fasting)) mg/dl Osmolality (280-300) mOsm/kg Calcium 9.2 (8.6-10.3) mg/dl Total Bilirubin 2.9 H (0.2-1.0) mg/dl Direct Bilirubin 1.0 H (0-0.2) mg/dl AST 33 (13-39) U/L ALT 14 (7-52) U/L Alkaline Phosphatase 55 (34-104) U/L Ammonia (18-72) umol/L Total Protein 7.5 (6.0-8.3) gm/dl Albumin 3.4 (3.4-5.0) gm/dl Procalcitonin (0-0.5) ng/ml Urine Osmolality 310 L (500-800) mOsm/kg Hep Bs Antibody, Quant 03/01/23 03/01/23 Range/Units 09:50 09:50 WBC (4.8-10.8) K/ul RBC (4.70-6.10) M/uL Hgb (14.0-18.0) g/dl Hct (42.0-52.0) % MCV (80.0-100.0) fL MCH (25.0-34.0) pg MCHC (32.0-36.0) g/dL RDW Std Deviation (36.4-46.3) fL RDW Coeff of Howie (11.5-14.5) % Plt Count (130-400) K/uL MPV (9.4-12.4) fL PT (9.0-12.0) Seconds INR (0.9-1.1) Sodium (136-145) mmol/L Potassium (3.5-5.1) mmol/L Chloride (98-107) mmol/L Carbon Dioxide (21-32) mmol/L Anion Gap (3-11) BUN (6-23) mg/dl Creatinine (0.6-1.4) mg/dl Est Cr Clr Drug Dosing ml/min Est GFR ( Amer) ml/min Est GFR (Non-Af Amer) ml/min BUN/Creatinine Ratio (10-20) Glucose (70-99(Fasting)) mg/dl Osmolality 296 (280-300) mOsm/kg Calcium (8.6-10.3) mg/dl Total Bilirubin (0.2-1.0) mg/dl Direct Bilirubin (0-0.2) mg/dl AST (13-39) U/L ALT (7-52) U/L Alkaline Phosphatase (34-104) U/L Ammonia (18-72) umol/L Total Protein (6.0-8.3) gm/dl Albumin (3.4-5.0) gm/dl Procalcitonin (0-0.5) ng/ml Urine Osmolality (500-800) mOsm/kg Hep Bs Antibody, Quant Pending PG Care Time/CCT Total # of Minutes Spent Total Time Spent with Patient: Total time spent is greater than 50% in coordination of care (as documented) at patient's floor/unit and/or counseling patient: Coding Level of Care Code 10819 SUB INP/OBS CARE 3/50MIN Diagnoses Volume overload E87.70 Acute kidney injury superimposed on CKD N17.9; N18.9 Lethargy R53.83 UTI (urinary tract infection) N39.0 Cirrhosis K74.60 Anemia D64.9 Anemia type: unspecified type S/P ablation of atrial fibrillation Z98.890; Z86.79 Vitamin D deficiency E55.9 Folate deficiency E53.8 Lymphedema I89.0 (6) Anemia Anemia type: unspecified type Qualified Code(s): D64.9 - Anemia, unspecified
[2023-03-02] MEDS: MESALAMINE PO SCH (08:21)
[2023-03-02] MEDS: METOPROLOL SUCC 50MG EXT REL TAB PO SCH (08:23)
[2023-03-02] MEDS: CHOLECALCIFEROL 1,000 UNITS 25 MCG TAB PO SCH (08:23)
[2023-03-02] MEDS: MAGNESIUM OXIDE 400 MG TAB PO SCH ×2 (08:24→20:34)
[2023-03-02] MEDS: FAMOTIDINE 20 MG TAB PO SCH (08:24)
[2023-03-02] MEDS: FOLIC ACID 1 MG TAB PO SCH (08:24)
[2023-03-02] MEDS: rifAXIMin 550 MG TABLET PO SCH ×2 (08:25→20:34)
[2023-03-02] MEDS: MICONAZOLE NITRATE POWDER 85 GM EXT SCH ×3 (08:26→20:34)
[2023-03-02] MEDS: LACTULOSE SYRUP 30 GM/45 ML UDP PO SCH ×3 (08:26→20:30)
--- NOTE | 2023-03-02 09:01 | Nephrology Progress Note ---
Date of Service March 02, 2023 Assessment & Plan (1) Acute kidney injury superimposed on CKD: Plan: * Progressive ANNA, oliguria while holding diuretic therapy * Will obtain renal US to check for hydronephrosis and replace Vela catheter to monitor UO * Mr. Bashir understands that he is suffering from both liver failure and kidney failure. He wishes a trial of dialysis to see if his condition will allow him to return home and continue caring for his * Vascular Surgery will place IJ THC Friday am. Will then plan heparin free 1st run HD * Case Management has been consulted to set up outpatient HD for [facility] w/ Dr. Giraldo * Will provide IV Bumex and po NaCl this am to help correct serum sodium. Continue oral fluid restriction * PRP in am (2) Anemia: Plan: * H/H stable * Epogen 70190 units provided 02/20/23 (3) Bilateral edema of lower extremity: Plan: * Combination of lymphedema, right sided CHF, and venous insufficiency * Diuretics held due to intravascular depletion and progressive renal insufficiency (4) Hyponatremia: Plan: * Will provide IV Bumex and po NaCl this am to help correct serum sodium * Continue free water restriction to 1 L/d (5) Cirrhosis: Plan: * MELD 30. Prognosis is very poor. Palliative care appreciated. HE improved. Admission and Anticipated Discharge Date Admission Date: February 12, 2023 Subjective Mr. Bashir was evaluated in his hospital room. Vela catheter was removed Friday. Patient reports progressive oliguria and persistent LE swelling Review of Systems Review of Systems: detailed review of system was otherwise unremarkable. Constitutional: no fever Eyes: no worsening vision Ear, Nose, Mouth, Throat: no problem reported Respiratory: no cough and no dyspnea Cardiovascular: no chest pain Additional Comments: + LE swelling Gastrointestinal: no abdominal pain Genitourinary: no dysuria, no urinary hesitancy or no hematuria Musculoskeletal: no back pain Integumentary: no rash Neurologic: no falls, no dizziness and no confusion Physical Exam Constitutional: + morbidly obese Eyes: PERRL, conjunctivae normal, anicteric sclerae ENMT: external ear and nose normal, oropharynx normal Neck: trachea midline, no thyromegaly Respiratory: normal respiratory effort, lungs clear to auscultation Cardiovascular: Rate/Rhythm: regular rate and regular rhythm Heart Sounds: + murmur Extremities: + edema (tense pretibial edema) Gastrointestinal (Abdomen): Inspection/Auscultation: + abdomen distended Percussion/Palpation: abdomen nontender and no guarding Neurologic: awake; not confused Results & Data Vital Signs (Past 12 Hours) Vital Signs Temp Pulse Resp BP BP Pulse Ox O2 Del Method 03/02/23 07:41 36.6 C 69 18 114/67 96 Room Air 03/01/23 21:08 36.3 C L 65 20 100/51 L 97 Room Air Laboratory Results Laboratory Tests 02/25/23 02/26/23 02/27/23 08:52 05:31 06:35 WBC Hgb Hct Plt Count INR Sodium Potassium Chloride Carbon Dioxide BUN Creatinine 3.23 H 3.90 H D 4.03 H Glucose Calcium Total Bilirubin AST ALT Alkaline Phosphatase Albumin 02/28/23 03/01/23 03/02/23 06:43 06:04 06:13 WBC 14.98 H Hgb 10.9 L Hct 30.2 L Plt Count 149 INR Sodium Potassium Chloride Carbon Dioxide BUN Creatinine 4.36 H D 5.20 H* D Glucose Calcium Total Bilirubin AST ALT Alkaline Phosphatase Albumin 03/02/23 03/02/23 06:13 06:13 WBC Hgb Hct Plt Count INR 1.4 H Sodium 121 L Potassium 4.4 Chloride 81 L Carbon Dioxide 28 BUN 83 H Creatinine 5.80 H* D Glucose 129 H Calcium 9.2 Total Bilirubin 2.9 H AST 33 ALT 14 Alkaline Phosphatase 55 Albumin 3.4 PG Care Time/CCT Total # of Minutes Spent Total Time Spent with Patient: Total time spent is greater than 50% in coordination of care (as documented) at patient's floor/unit and/or counseling patient: Coding Level of Care Code 08708 SUB INP/OBS CARE 3/50MIN Diagnoses Acute kidney injury superimposed on CKD N17.9; N18.9 Anemia D64.9 Anemia type: unspecified type Bilateral edema of lower extremity R60.0 Hyponatremia E87.1 Cirrhosis K74.60 (2) Anemia Anemia type: unspecified type Qualified Code(s): D64.9 - Anemia, unspecified
[2023-03-02] MEDS: SODIUM CHLORIDE 1 GM TABLET PO SCH ×2 (09:57→20:34)
--- NOTE | 2023-03-02 11:04 | Ultrasound Report ---
RENAL ULTRASOUND CLINICAL HISTORY: ANNA/CKD COMPARISON STUDY: CT of the abdomen and pelvis April 04, 2022. Renal ultrasound February 13, 2023. TECHNIQUE: Sonography of the kidneys and the urinary bladder was performed. FINDINGS: This exam is compromised by suboptimal penetration. However, no hydronephrosis is identifie d. The right kidney measures 12.5 cm in maximal dimension and the left measures 13.1 cm. No renal eliseo culus or mass is identified. Mild to moderate bilateral renal cortical thinning is present. Ureteral jets were not identified. Bladder is underdistended. IMPRESSION: Exam compromised by suboptimal penetration. However, no definite hydronephrosis. ACT 112: Negative or not required by law. Electronically signed by: Vikram Angel M.D. 03/02/2023 11:02 AM
[2023-03-02] MEDS: allopurinoL 300 MG TAB PO SCH (12:35)
[2023-03-02] MEDS: BUMETANIDE 2 MG in SYRINGE 0 ML IV SCH (16:56)
[2023-03-03] MEDS: LINEZOLID 600 MG/300 ML BAG IV SCH ×2 (00:11→16:01)
[2023-03-03] MEDS: HEPARIN SOD 5,000 UNIT/0.5 ML VIAL SQ SCH ×3 (05:18→20:44)
[2023-03-03] MEDS: LEVOTHYROXINE SODIUM 137 MCG TABLET PO SCH (05:44)
[2023-03-03 06:21] LABS: Hematocrit (blood only) 30.5 % (42.0-52.0); Hemoglobin 10.8 g/dl (14.0-18.0); Mean Corpuscular Hemoglobin 34.1 pg (25.0-34.0); Mean Corpuscular Hgb Conc 35.4 g/dL (32.0-36.0); Mean Corpuscular Volume 96.2 fL (80.0-100.0); Mean Platelet Volume 10.4 fL (9.4-12.4); Platelet Count 151 K/uL (130-400); RDW Coefficient of Variation 14.2 % (11.5-14.5); RDW Standard Deviation 50.4 fL (36.4-46.3); Red Blood Count 3.17 M/uL (4.70-6.10); White Blood Count 15.16 K/ul (4.8-10.8)
[2023-03-03] MEDS ORDERED: SODIUM CHLORIDE 0.9% 1000ML 1,000 ML IV PRN (07:00)
[2023-03-03] MEDS ORDERED: EPOETIN ALFA 10,000 UNITS/ML VIAL IV SCH (07:00)
[2023-03-03 07:01] LABS: Albumin Level 3.3 gm/dl (3.4-5.0); BUN Creatinine Ratio 16.9 (10-20); Bilirubin Direct 0.9 mg/dl (0-0.2); Bilirubin,Total 2.8 mg/dl (0.2-1.0); Calcium 9.1 mg/dl (8.6-10.3); Creatinine Clr Calc Pharmacy 17.9 ml/min; Est GFR (African American) 12.9 ml/min; Est GFR (Non-African American) 11.2 ml/min; Potassium 4.4 mmol/L (3.5-5.1); Total Protein 7.4 gm/dl (6.0-8.3)
[2023-03-03 07:02] LABS: INR 1.3 (0.9-1.1)
[2023-03-03] MEDS ORDERED: CLINDAMYCIN/D5W 900 MG/50 ML BAG IV SCH (08:00)
--- NOTE | 2023-03-03 08:47 | Nephrology Progress Note ---
Date of Service March 03, 2023 Assessment & Plan (1) Acute kidney injury superimposed on CKD: Plan: * Progressive ANNA, oliguria while holding diuretic therapy * 03/02/23 Renal US - no hydronephrosis * Mr. Bashir understands that he is suffering from both liver failure and kidney failure. He wishes a trial of dialysis to see if his condition will allow him to return home and continue caring for his * Vascular Surgery will place IJ THC this am. Will then provide heparin free 1st run HD * Case Management has been consulted to set up outpatient HD for [facility] w/ Dr. Giraldo * Will plan 2nd HD treatment for tomorrow (2) Anemia: Plan: * H/H stable * Epogen 76588 units provided 02/20/23 (3) Bilateral edema of lower extremity: Plan: * Combination of lymphedema, right sided CHF, and venous insufficiency * Diuretics held due to intravascular depletion and progressive renal insufficiency (4) Cirrhosis: Plan: * MELD 30. Prognosis is very poor. Palliative care appreciated. HE improved. Admission and Anticipated Discharge Date Admission Date: February 12, 2023 Subjective Mr. Bashir was evaluated in his hospital room. Vela catheter is in place w/ 300 cc bloody urine in the collection bag. Renal US yesterday was negative for hydronephrosis. Mr. Bashir is awaiting IJ THC insertion and initiation of HD Review of Systems Review of Systems: detailed review of system was otherwise unremarkable. Constitutional: no fever Eyes: no worsening vision Ear, Nose, Mouth, Throat: no problem reported Respiratory: no cough and no dyspnea Cardiovascular: no chest pain Additional Comments: + LE swelling Gastrointestinal: no abdominal pain Genitourinary: no dysuria, no urinary hesitancy or no hematuria Musculoskeletal: no back pain Integumentary: no rash Neurologic: no falls, no dizziness and no confusion Physical Exam Constitutional: + morbidly obese Eyes: PERRL, conjunctivae normal, anicteric sclerae ENMT: external ear and nose normal, oropharynx normal Neck: trachea midline, no thyromegaly Respiratory: normal respiratory effort, lungs clear to auscultation Cardiovascular: Rate/Rhythm: regular rate and regular rhythm Heart Sounds: + murmur Extremities: + edema (tense pretibial edema) Gastrointestinal (Abdomen): Inspection/Auscultation: + abdomen distended Percussion/Palpation: abdomen nontender and no guarding Neurologic: awake; not confused Results & Data Vital Signs (Past 12 Hours) Vital Signs Temp Pulse Resp BP Pulse Ox O2 Del Method 03/03/23 07:11 36.6 C 64 16 107/47 L 94 Room Air Laboratory Results Laboratory Tests 03/03/23 03/03/23 05:46 05:46 WBC 15.16 H Hgb 10.8 L Hct 30.5 L Plt Count 151 Sodium 121 L Potassium 4.4 Chloride 83 L Carbon Dioxide 25 BUN 85 H Creatinine 5.03 H* D Est GFR (Non-Af Amer) 11.2 Calcium 9.1 Total Bilirubin 2.8 H Direct Bilirubin 0.9 H AST 36 ALT 15 Alkaline Phosphatase 57 Albumin 3.3 L Diagnostic Findings 03/02/23 Renal US: This exam is compromised by suboptimal penetration. However, no hydronephrosis is identified. The right kidney measures 12.5 cm in maximal dimension and the left measures 13.1 cm. No renal calculus or mass is identified. Mild to moderate bilateral renal cortical thinning is present. Ureteral jets were not identified. Bladder is underdistended. PG Care Time/CCT Total # of Minutes Spent Total Time Spent with Patient: Total time spent is greater than 50% in coordination of care (as documented) at patient's floor/unit and/or counseling patient: Coding Level of Care Code 32288 SUB INP/OBS CARE 350MIN Diagnoses Acute kidney injury superimposed on CKD N17.9; N18.9 Anemia D64.9 Anemia type: unspecified type Bilateral edema of lower extremity R60.0 Cirrhosis K74.60 (2) Anemia Anemia type: unspecified type Qualified Code(s): D64.9 - Anemia, unspecified
[2023-03-03] MEDS: BUMETANIDE 2 MG in SYRINGE 0 ML IV SCH (08:49)
[2023-03-03] MEDS: FAMOTIDINE 20 MG TAB PO SCH (08:51)
[2023-03-03] MEDS: METOPROLOL SUCC 50MG EXT REL TAB PO SCH (08:51)
[2023-03-03] MEDS: FOLIC ACID 1 MG TAB PO SCH (08:51)
[2023-03-03] MEDS: MAGNESIUM OXIDE 400 MG TAB PO SCH ×2 (08:51→20:43)
[2023-03-03] MEDS: rifAXIMin 550 MG TABLET PO SCH ×2 (08:51→20:43)
[2023-03-03] MEDS: MICONAZOLE NITRATE POWDER 85 GM EXT SCH ×3 (08:52→20:43)
[2023-03-03] MEDS: CHOLECALCIFEROL 1,000 UNITS 25 MCG TAB PO SCH (09:01)
[2023-03-03] MEDS: LACTULOSE SYRUP 30 GM/45 ML UDP PO SCH ×3 (09:01→20:43)
--- NOTE | 2023-03-03 09:27 | Hospitalist Progress Note ---
Date of Service March 03, 2023 Assessment & Plan (1) Volume overload: Plan: Multifactorial -- cirrhosis, progressive CKD Holding further oral/IV diuretics for progressive renal decline Decreased fluid restriction to 1L/daily - Na remains at 121 on repeat. Ordering 2mg IV bumex BID/NaCl 1gm PO BID to assist with serum sodium level per nephrology Renal US revealed no definite hydronephrosis Vela in place Plan to have 2nd dialysis again tomorrow (2) Acute kidney injury superimposed on CKD: Plan: Acute/unstable - volume overload combination cirrhosis/progressive CKD/CHF, noncompliacne w/ meds at home over past year caring for his . Baseline [employer] prior was 1.5-1.6, progressive decline over past year Nephrology following 1L fluid restriction Labs reviewed Cr 5.03 Renal US no definite hydronephrosis Monitor labs in AM (3) Lethargy: Plan: Acute/unstable --> IMPROVED/stable Increased lethargy/hepatic encephalopathy 02/25, ammonia improved 46 on lactulose Rifaximin initiated BID 02/25 - will need new rx at d/c CXR w/o acute process CO2 elevated on labs 02/25, obtained VBG c/w hypercapnia Overnight pulse ox to determine nocturnal hypoxia - schedule 2L HS for now, will need outpt sleep study UA/culture obtained, finalized enterococcus - placed on Linezolid to avoid vanc/dapto given his kidney function PTH low,appropriate given hypercalcemia. Per nephro, felt elevated Ca driven by diuretic therapy. Continue current course Mentation stable, moving bowels. Ammonia 46 on repeat. Will continue lactulose, TID for now Palliative consulted, DNR but wanting to undergo treatment as offered. Ultimate goal is rehab/home for patient, however not had PT/OT evals prior -- rehab rec, but will plan for home w/ HH when able (4) UTI (urinary tract infection): Plan: new since admit, prior cx negative Cx as above, switched to Linezolid to complete course for UTI WBC trended up, improving on repeat since switching to LInezolid. Vela in place (5) Cirrhosis: Plan: Acute on chronic/unstable - high risk Known hx in chart, however patient denied knowing this. Do consume beer, no excessive heavy use reported (educated to stop) --? 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 Repeat ammonia stable but less BMs and will change to TID and monitor Started Xifaxan 550mg BID 02/25, continue at d/c Limited US 02/24 w/o ascites seen MELD score 32 , poor prognosis. >50% 3 month mortality discussed w/ patient. Prior Palliaitve consulted, made DNR GI/Hepatology follow up q 6 months with U/S and AFP Monitor MELD labs Nephrology as above to assist w/ volume management (6) Anemia: Plan: Chronic/Stable hx CML following w/ CCP -- in remission per discussion w/ Dr Lima, but she will order BCRABL PCR for eval Checked iron panel, Venofer x4 doses this admission per nephrology - B12 wnl, Folate low prior and continues on supplementation (improved from last month, not on home med list but pt states had been taking) - Fecal occult NEGATIVE CBC reviewed, hgb stable (7) S/P ablation of atrial fibrillation: Plan: Stable and chronic - Not currently on anticoagulation, ablation was remote while living in [place] - EKG on admit NSR, L anterior fascicular block, RBBB - Continue metoprolol succinate 50mg daily with hold parameters - clarified was previously on AC in September d/t blood clot --> Stopped d/t issues of GI bleeding reported (also has diarrhea baseline w/ ulcerative colitis) - Prior to ablation was only on aspirin but patient reported some bleeding w/ such --> continued discussions for at least ASA at d/c pending risk/benefit (8) Vitamin D deficiency: Plan: Acute/unstable Vit D low, replacement ordered PTh checked given hypercalcemia, appropriately low -- continue current course (9) Folate deficiency: Plan: Acute/unstable - prior low dec 2022, repeat ordered and replacement (10) Lymphedema: Plan: Chronic/stable Wound RN consulted, appreciate assistance - amlactin ordered Monitor for any infection, just completed course Zosyn for LE cellulitis legs less heavy, more mobility for patient will need outpt f/u Also w hx CML, to be monitored by CCP -- appears previously on Sprycel but patient d/c due to weight gain/edema. Was to start Gleevec per most recent note but doesn't appear this ever occurred. -- reached out to heme/onc, Dr Lima for discussion given complex case above --> was stopped meds ~6 months ago, in remission. She will check lab for further info Plan continued inpatient stay 2nd dialysis treatment tomorrow Admission and Anticipated Discharge Date Admission Date: February 12, 2023 Subjective Patient is s/p right perm catheter placement today. he states he had partial dialysis after and is feeling tired, but otherwise "ok" Review of Systems Review of Systems: Patient denies any chest pain, SOB, nausea abdominal pain, constipation. Still with lower extremity swelling/lymphedema. + fatigue Physical Exam Constitutional: + morbidly obese and + lethargic; not in distress Neck: trachea midline, no thyromegaly Respiratory: normal respiratory effort, lungs clear to auscultation Cardiovascular: Rate/Rhythm: regular rate Heart Sounds: + murmur Extremities: + edema Gastrointestinal (Abdomen): normal bowel sounds, soft, nontender, no hepatosplenomegaly Skin: surgical dressing right neck/chest due to perm catheter placement and dialysis with some bleeding at site after dialysis and pressure dressing placed. Dressing clean and intact Psychiatric: A+Ox3, euthymic affect Lymphatic: + lymphedema Results & Data Results & Data Vital Signs (Past 12 Hours) Vital Signs Temp Pulse Resp BP Pulse Ox O2 Del Method 03/03/23 07:11 36.6 C 64 16 107/47 L 94 Room Air Laboratory Results Abnormal lab results 03/03/23 03/03/23 03/03/23 Range/Units 05:46 05:46 05:46 WBC 15.16 H (4.8-10.8) K/ul RBC 3.17 L (4.70-6.10) M/uL Hgb 10.8 L (14.0-18.0) g/dl Hct 30.5 L (42.0-52.0) % MCH 34.1 H (25.0-34.0) pg RDW Std Deviation 50.4 H (36.4-46.3) fL PT 14.0 H (9.0-12.0) Seconds INR 1.3 H (0.9-1.1) Sodium 121 L (136-145) mmol/L Chloride 83 L (98-107) mmol/L Anion Gap 13 H (3-11) BUN 85 H (6-23) mg/dl Creatinine 5.03 H* D (0.6-1.4) mg/dl Glucose 132 H (70-99(Fasting)) mg/dl Total Bilirubin 2.8 H (0.2-1.0) mg/dl Direct Bilirubin 0.9 H (0-0.2) mg/dl Albumin 3.3 L (3.4-5.0) gm/dl PG Care Time/CCT Total # of Minutes Spent Total Time Spent with Patient: Total time spent is greater than 50% in coordination of care (as documented) at patient's floor/unit and/or counseling patient: Coding Level of Care Code 39601 SUB INP/OBS CARE 2/35MIN Diagnoses Volume overload E87.70 Acute kidney injury superimposed on CKD N17.9; N18.9 Lethargy R53.83 UTI (urinary tract infection) N39.0 Cirrhosis K74.60 Anemia D64.9 Anemia type: unspecified type S/P ablation of atrial fibrillation Z98.890; Z86.79 Vitamin D deficiency E55.9 Folate deficiency E53.8 Lymphedema I89.0 (6) Anemia Anemia type: unspecified type Qualified Code(s): D64.9 - Anemia, unspecified
--- NOTE | 2023-03-03 09:59 | Consultation ---
Date of Consultation March 03, 2023 Assessment & Plan (1) Acute kidney injury superimposed on CKD: Pt with acute on chronic renal failure without improvement despite conservative treatment. Pt scheduled for permcath insertion for HD later this AM. Procedure discussed with pt, he expresses understanding and agreement. Patient was seen, examined, and chart reviewed. Agree with exam and treatment plan of the Vascular PA. History of Present Illness Reason for Consultation: ESRD Attending Physician: Jose Reyna MD History of Present Illness 67 yo m with multiple medical problems, including HTN, hypothyriodism, GERD, CKD, a fib/flutter, SVT, CML, PAD, PE, lymphedema, liver cirrhosis, anemia, admitted with worsening liver failure and renal failure, seen in consultation today for permcath insertion for HD initiation. Pt states he had a L chest infusaport placed and removed in the remote past. Admits chronic BLE edema, fatigue, malaise. Denies fever, chest pain, SOB, abd pain, N/V, rest pain, claudication, other complaints. Allergies Allergy/AdvReac Type Severity Reaction Status Date / Time bee venom protein (honey bee) Allergy Severe DYSPNEA;SWE Verified 02/06/23 13:15 LLING latex Allergy Intermediate Rash Verified 02/06/23 13:15 Penicillins Allergy Unknown HAPPENED Verified 02/06/23 13:15 A CHILD Home Medications Medication Instructions Recorded Confirmed Type epinephrine 0.3 mg/0.3 mL 0.3 mg (0.3 mL) IM Q10M PRN 08/06/21 02/12/23 Rx injection, auto-injector (EpiPen anaphylaxis #2 ea 2-Sb) tadalafil 20 mg tablet 20 mg PO DAILY PRN Erectile 08/06/21 02/12/23 History Dysfunction triamcinolone acetonide 0.1 % 1 applic topical DAILY PRN Skin 02/08/22 02/12/23 Rx topical ointment Irritation #80 grams metoprolol succinate 100 mg 50 mg PO QAM 04/24/22 02/12/23 History tablet,extended release 24 hr levothyroxine 137 mcg tablet 137 mcg PO QPM 09/02/22 02/12/23 History menthol 0.44 %-zinc oxide 20.6 % 1 applic EXT DIRECTED 09/17/22 02/12/23 History topical ointment (Calmoseptine) spironolactone 100 mg tablet 100 mg PO QAM #90 tabs 10/31/22 02/12/23 Rx allopurinol 300 mg tablet 300 mg PO QDL 01/07/23 02/12/23 History mesalamine 0.375 gram 1.5 g PO QDL 01/07/23 02/12/23 History capsule,extended release 24 hr magnesium oxide 400 mg (241.3 mg 400 mg PO BID #60 tabs 01/28/23 02/12/23 Rx magnesium) tablet bumetanide 2 mg tablet 2 mg PO DAILY 02/06/23 02/12/23 History Patient History Medical History Acute kidney injury Anemia Atrial flutter 10/02/2020: Ablation of typical right atrial isthmus dependent flutter. 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 Giraldo Cirrhosis CML (chronic myelocytic leukemia) no chemo at present COVID-19 GERD (gastroesophageal reflux disease) Hemangioma History of COVID-12 Dec 2021 > not hospitalized Hypertension Hypokalemia Hypothyroidism Low platelet count Lymphedema Murmur Paroxysmal A-fib resolved with ablation Pulmonary embolism Aug 2022 > was treated with Eliquis and now finished Right heart failure SVT (supraventricular tachycardia) 01/21/2012: Ablation of typical slow fast AVNRT 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 Ulcerative colitis Venous ulcer of left leg Venous ulcers of both lower extremities Vitamin D deficiency Surgical History H/O hernia repair (12/04/12) H/O laparoscopy H/O left knee surgery H/O lymph node excision 36 total H/O right hemicolectomy 36 lymph nodes removed as well History of appendectomy History of colonoscopy History of esophagogastroduodenoscopy (EGD) History of removal of Port-a-Cath History of tooth extraction Status post ablation of atrial flutter (12/04/12) 2020 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) Family History Grandmother (Paternal) Colorectal cancer Father Myocardial infarction Prostate cancer Denies family history of Ovarian cancer Dementia Breast cancer Social History Smoking Status: Never smoker Second Hand Exposure: No; Hx Alcohol Use: Yes Alcohol type: beer Hx Substance Use: No Preferred Language: Setswana Communication Ability: Effective Visual Impairment: Limited Hearing Ability: Normal Laborer Pipelines Required: No Beliefs That Will Affect Care: Scientology marital status: Current Living Situation: Spouse Current Living Situation Comment: Lives with who has her own healthcare issues 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 How many Children do You have: 2 Other Information That Helps Us Care for You: No Feels Safe at Home: Yes Safety Concerns: Feels Safe At This Time Childhood Exposure to Second-Hand Smoke: No Diet Comment: 2000 cc fluid restriction during the past year weight has: increased > 10 lbs Dental Care, Regularly: Yes Physical Activity Frequency: Daily Seatbelt Use: always Sunscreen Use: Yes Assistive Devices: Cane Review of Systems Review of Systems: All systems reviewed & are unremarkable except as noted in HPI & below Physical Exam Constitutional: WD/WN, vitals as above + obese ENMT: Ears: no hearing impairment Neck: trachea midline Respiratory: normal respiratory effort, lungs clear to auscultation Auscultation: + diminished lung sounds Cardiovascular: Rate/Rhythm: regular rate and regular rhythm Vessels: posterior tibial pulses present, dorsalis pedis pulses present (difficult to palpate d/t edema) and radial pulses present; no carotid bruit and + abnormal peripheral pulses Extremities: normal capillary refill, + pedal edema and + edema (+4 BLE); no vascular access device Gastrointestinal (Abdomen): Inspection/Auscultation: abdomen normal to inspection and normal bowel sounds Percussion/Palpation: abdomen soft (with fluid); abdomen nontender Musculoskeletal: no cyanosis or clubbing, extremities motor strength 5/5 Skin: no rashes, warm and dry Neurologic: moves all extremities and awake; no focal motor deficits and not confused Psychiatric: A+Ox3, euthymic affect Results & Data Vital Signs (Past 12 Hours) Vital Signs Temp Pulse Resp BP Pulse Ox O2 Del Method 03/03/23 07:11 36.6 C 64 16 107/47 L 94 Room Air
[2023-03-03] MEDS ORDERED: fentaNYL citrate PF 100 MCG/2 ML VIAL ONE (11:31)
[2023-03-03] MEDS ORDERED: MIDAZOLAM HCL 1 MG/ML 2ML VIAL ONE (11:32)
[2023-03-03] MEDS ORDERED: LIDOCAINE 1% LOCAL 20 ML VIAL ONE (11:32)
[2023-03-03] MEDS ORDERED: HEPARIN SOD (PORCINE) 5,000 UNITS/ML VIAL ONE (11:33)
--- NOTE | 2023-03-03 11:59 | Pre Anesthesia Assessment ---
Date of Service March 03, 2023 Pre Sedation Assessment Vital Signs Temp Pulse Pulse Resp BP Pulse Ox O2 Del Method 03/03/23 10:28 36.5 C 67 67 H 134/57 L 99 Room Air 03/03/23 07:11 36.6 C 64 16 107/47 L 94 Room Air 03/02/23 20:32 36.4 C L 67 16 113/47 L 97 Room Air 03/02/23 15:51 36.3 C L 70 18 106/62 97 Room Air Cardiovascular RRR, no murmur, no edema Respiratory normal respiratory effort, lungs clear to auscultation Pre-Sedation Airway Assessment Smoking Status: Never smoker Hx Sleep Apnea: No Short, Thick Neck: No Thyromental Distance: > or= 3.5 Finger Breadths Oral Cavity: + WNL Mallampati Class: II ASA: ASA3 NPO Status Date of Last Intake of Fluids: 03/02/23 Time of Last Intake of Fluids: 23:00 Date of Last Intake of Solid Food: 03/02/23 Time of Last Intake of Solid Foods: 23:00 Procedure Planning Contraindications for Sedation: none Current Medications Reviewed: Yes Notes The planned sedation has been discussed with the patient. Informed Consent was obtained. I have identified the patient, determined the appropriateness of sedation and have assessed the patient immediately prior to the procedure. All medicine(s) and interventions are by my order.
--- NOTE | 2023-03-03 12:25 | Operative Report ---
Post Operative Report Pre & Post Diagnosis Operation Date: 03/03/23 11:55 Pre-Op Diagnosis: Acute Kidney Injury Post-Op Diagnosis: Acute Kidney Injury I identified the patient and participated in the time-out.: Yes Procedure Operation Date: 03/03/23 11:55 Actual Procedures p Perm Catheter Placement, Right Internal Jugular Approach, Ultrasound Localization of Right Internal Jugular Vein, Fluroscopy for Positioning, Moderate Sedation [id number](Right) - Richard Smith MD Surgeon Richard Smith MD Sewer Separation Designer Diego Vicente Estimated Blood Loss 10 Findings Consistent with Post-Op Diagnosis Specimens None Anesthesia Type RN Sedation Complications None immediate Indications This is a 67-year-old male with history of hypertension, hyperlipidemia and CKD now with worsening kidney function and need for dialysis access. Patient was consented for tunneled catheter placement. Description of Procedure Patient was taken to the angio suite and placed in the supine position. The right side of the neck and chest wall were prepped and draped in a sterile manner. Local anesthesia was then administered to the appropriate areas of the neck and chest wall. Ultrasound was then used to locate the right internal jugular vein. The vein compressed easily, had no filing defects, and was patent. The vein was then punctured under direct ultrasound imaging. A guidewire was then passed centrally under fluoroscopic imaging. A stab wound was then made in the anterior chest wall and a 19 cm permcath was passed from the stab wound on the chest wall to the puncture site on the neck. The puncture site was then dilated till the 14Fr peel away sheath was inserted. The permcath was then inserted through the sheath to a central position in the distal superior vena cava. The peel away sheath was then removed. The catheter was then sutured in place using nylon sutures. The puncture was then closed using a 4-0 Vicryl subcuticular suture. Dermabond was used for a dressing on the puncture site. Both ports aspirated and flushed easily and were then packed with heparin. A sterile dressing was applied to the catheter. The patient left the angio suite in good condition and tolerated the procedure well. Dr. Smith was present and scrubbed for the entire procedure. I attest to the content of the Intraoperative Record and any orders documented therein. Any exceptions are noted below. Supervising Physician Co-Signing Physician Notes Richard Smith
--- NOTE | 2023-03-03 12:30 | Post Operative Brief Note ---
Immediate Post Op Note v1 Date of Surgery March 03, 2023 Pre & Post Diagnosis Operation Date: 03/03/23 11:55 Pre-Op Diagnosis: Acute Kidney Injury Post-Op Diagnosis: Acute Kidney Injury I identified the patient and participated in the time-out.: Yes Procedure Operation Date: 03/03/23 11:55 Actual Procedures p Perm Catheter Placement, Right Internal Jugular Approach, Ultrasound Localization of Right Internal Jugular Vein, Fluroscopy for Positioning, Moderate Sedation [id number](Right) - Richard Smith MD Surgeon Richard Smith MD Real Estate Attorney Diego Vicente Estimated Blood Loss 10 Findings Consistent with Post-Op Diagnosis Anesthesia Type RN Sedation Complications none Disposition Accompanied Patient To Recovery: No Disposition: Recovery Room
[2023-03-03] MEDS: MESALAMINE PO SCH (16:01)
[2023-03-03] MEDS: allopurinoL 300 MG TAB PO SCH (16:01)
[2023-03-03] MEDS ORDERED: ARISTA ABSORBABLE HEMOSTAT 3GM TOP ONE (17:02)
[2023-03-03] MEDS ORDERED: ACETAMINOPHEN 500 MG TAB PO STA (21:41)
[2023-03-04] MEDS: LINEZOLID 600 MG/300 ML BAG IV SCH ×2 (01:04→15:22)
[2023-03-04] MEDS: LEVOTHYROXINE SODIUM 137 MCG TABLET PO SCH (06:01)
[2023-03-04] MEDS ORDERED: EPOETIN ALFA 10,000 UNITS/ML VIAL IV ONE (07:00)
[2023-03-04] MEDS ORDERED: SODIUM CHLORIDE 0.9% 1000ML 1,000 ML IV PRN (07:00)
[2023-03-04 07:45] LABS: Hematocrit (blood only) 29.1 % (42.0-52.0); Hemoglobin 10.1 g/dl (14.0-18.0); Mean Corpuscular Hemoglobin 34.1 pg (25.0-34.0); Mean Corpuscular Hgb Conc 34.7 g/dL (32.0-36.0); Mean Corpuscular Volume 98.3 fL (80.0-100.0); Mean Platelet Volume 10.7 fL (9.4-12.4); Platelet Count 117 K/uL (130-400); RDW Coefficient of Variation 14.6 % (11.5-14.5); RDW Standard Deviation 53.7 fL (36.4-46.3); Red Blood Count 2.96 M/uL (4.70-6.10); White Blood Count 17.92 K/ul (4.8-10.8)
[2023-03-04 08:05] LABS: Albumin Level 3.2 gm/dl (3.4-5.0); BUN Creatinine Ratio 13.1 (10-20); Bilirubin,Total 3.1 mg/dl (0.2-1.0); Calcium 8.6 mg/dl (8.6-10.3); Creatinine Clr Calc Pharmacy 17.5 ml/min; Est GFR (African American) 12.5 ml/min; Est GFR (Non-African American) 10.8 ml/min; INR 1.4 (0.9-1.1); Potassium 4.3 mmol/L (3.5-5.1); Prothrombin Time 14.6 Seconds (9.0-12.0); Total Protein 6.9 gm/dl (6.0-8.3)
[2023-03-04] MEDS: FAMOTIDINE 20 MG TAB PO SCH (08:17)
[2023-03-04] MEDS: FOLIC ACID 1 MG TAB PO SCH (08:17)
[2023-03-04] MEDS: MAGNESIUM OXIDE 400 MG TAB PO SCH ×2 (08:18→20:23)
[2023-03-04] MEDS: rifAXIMin 550 MG TABLET PO SCH ×2 (08:18→20:23)
--- NOTE | 2023-03-04 08:58 | Hospitalist Progress Note ---
Date of Service March 04, 2023 Assessment & Plan (1) Volume overload: Plan: Multifactorial -- cirrhosis, progressive CKD Holding further oral/IV diuretics for progressive renal decline Decreased fluid restriction to 1L/daily - Na 124 on today. Renal US revealed no definite hydronephrosis Vela in place (per nephrology removing Vela today) Plan to have 3rd dialysis tomorrow (2) Acute kidney injury superimposed on CKD: Plan: Acute/unstable - volume overload combination cirrhosis/progressive CKD/CHF, noncompliacne w/ meds at home over past year caring for his . Baseline [employer] prior was 1.5-1.6, progressive decline over past year Nephrology following 1L fluid restriction Labs reviewed Cr 5.03 S/P right perm catheter placed and receiving dialysis Renal US no definite hydronephrosis Monitor labs in AM (3) Lethargy: Plan: Acute/unstable --> IMPROVED/stable Increased lethargy/hepatic encephalopathy 02/25, ammonia improving on lactulose Rifaximin initiated BID 02/25 - will need new rx at d/c CXR w/o acute process CO2 elevated on labs 02/25, obtained VBG c/w hypercapnia Overnight pulse ox to determine nocturnal hypoxia - schedule 2L HS for now, will need outpt sleep study UA/culture obtained, finalized enterococcus - placed on Linezolid to avoid vanc/dapto given his kidney function PTH low,appropriate given hypercalcemia. Per nephro, felt elevated Ca driven by diuretic therapy. Continue current course Palliative consulted, DNR but wanting to undergo treatment as offered. Ultimate goal is rehab/home for patient, however not had PT/OT evals prior -- rehab rec, but will plan for home w/ HH when able (4) UTI (urinary tract infection): Plan: new since admit, prior cx negative Cx as above, switched to Linezolid to complete course for UTI WBC trended up, improving on repeat since switching to LInezolid. Vela in place (5) Cirrhosis: Plan: Acute on chronic/unstable - high risk Known hx in chart, however patient denied knowing this. Do consume beer, no excessive heavy use reported (educated to stop) --? 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 >50% 3 month mortality discussed w/ patient. Prior Palliaitve consulted, made DNR GI/Hepatology follow up q 6 months with U/S and AFP AFP 2.2 on 02/23/23 Monitor MELD labs Nephrology as above to assist w/ volume management (6) Anemia: Plan: Chronic/Stable hx CML following w/ CCP -- in remission per discussion w/ Dr Lima, but she will order BCRABL PCR for eval Checked iron panel, Venofer x4 doses this admission per nephrology - B12 wnl, Folate low prior and continues on supplementation (improved from last month, not on home med list but pt states had been taking) - Fecal occult NEGATIVE CBC reviewed, hgb stable Now having continued bleeding from perm catheter site and getting STAT labs (7) S/P ablation of atrial fibrillation: Plan: Stable and chronic - Not currently on anticoagulation, ablation was remote while living in [place] - EKG on admit NSR, L anterior fascicular block, RBBB - Continue metoprolol succinate 50mg daily with hold parameters - clarified was previously on AC in September d/t blood clot - Stopped d/t issues of GI bleeding reported (also has diarrhea baseline w/ ulcerative colitis) - Prior to ablation was only on aspirin but patient reported some bleeding w/ such - continued discussions for at least ASA at d/c pending risk/benefit (8) Vitamin D deficiency: Plan: Acute/unstable Vit D low, replacement ordered PTh checked given hypercalcemia, appropriately low - continue current course (9) Folate deficiency: Plan: Acute/unstable - prior low dec 2022, repeat ordered and replacement (10) Lymphedema: Plan: Chronic/stable Wound RN consulted, appreciate assistance - amlactin ordered Monitor for any infection, just completed course Zosyn for LE cellulitis legs less heavy, more mobility for patient will need outpt f/u Also w hx CML, to be monitored by CCP - appears previously on Sprycel but patient d/c due to weight gain/edema. Was to start Gleevec per most recent note but doesn't appear this ever occurred. - reached out to heme/onc, Dr Lima for discussion given complex case above --> was stopped meds ~6 months ago, in remission. She will check lab for further info Plan continued inpatient stay 2nd dialysis treatment today continued bleeding at perma cath site -awaiting STAT H&H and PT/INR -Dr Smith aware Admission and Anticipated Discharge Date Admission Date: February 12, 2023 Subjective Mr. Bashir was evaluated in his hospital room after dialysis. His is at bedside. He had bleeding of his Review of Systems Review of Systems: Patient denies any chest pain, SOB, nausea abdominal pain, constipation. Still with lower extremity swelling/lymphedema. + fatigue Physical Exam Constitutional: + morbidly obese and + lethargic; not in distress Neck: trachea midline, no thyromegaly Respiratory: normal respiratory effort, lungs clear to auscultation Cardiovascular: Rate/Rhythm: regular rate Heart Sounds: + murmur Extremities: + edema Gastrointestinal (Abdomen): normal bowel sounds, soft, nontender, no hepatosplenomegaly Psychiatric: A+Ox3, euthymic affect Genitourinary: Vela in place with light colored urine in bag Lymphatic: + lymphedema Results & Data Results & Data Vital Signs (Past 12 Hours) Vital Signs Temp Pulse Resp BP BP Pulse Ox O2 Del Method 03/04/23 07:38 36.4 C L 64 16 96/48 L 98 Room Air 03/04/23 04:30 36.3 C L 61 18 102/55 L 99 Room Air 03/03/23 23:52 100/60 03/03/23 22:47 36.8 C 69 16 89/47 L 96 Room Air Laboratory Results Abnormal lab results 03/04/23 03/04/23 03/04/23 Range/Units 07:28 07:28 07:28 WBC 17.92 H (4.8-10.8) K/ul RBC 2.96 L (4.70-6.10) M/uL Hgb 10.1 L (14.0-18.0) g/dl Hct 29.1 L (42.0-52.0) % MCH 34.1 H (25.0-34.0) pg RDW Std Deviation 53.7 H (36.4-46.3) fL RDW Coeff of Howie 14.6 H (11.5-14.5) % Plt Count 117 L (130-400) K/uL PT 14.6 H (9.0-12.0) Seconds INR 1.4 H (0.9-1.1) Sodium 124 L (136-145) mmol/L Chloride 89 L (98-107) mmol/L BUN 68 H (6-23) mg/dl Creatinine 5.18 H* (0.6-1.4) mg/dl Glucose 146 H (70-99(Fasting)) mg/dl Total Bilirubin 3.1 H (0.2-1.0) mg/dl Direct Bilirubin 1.0 H (0-0.2) mg/dl Albumin 3.2 L (3.4-5.0) gm/dl PG Care Time/CCT Total # of Minutes Spent Total Time Spent with Patient: Total time spent is greater than 50% in coordination of care (as documented) at patient's floor/unit and/or counseling patient: Coding Level of Care Code 85712 SUB INP/OBS CARE 2/35MIN Diagnoses Volume overload E87.70 Acute kidney injury superimposed on CKD N17.9; N18.9 Lethargy R53.83 UTI (urinary tract infection) N39.0 Cirrhosis K74.60 Anemia D64.9 Anemia type: unspecified type S/P ablation of atrial fibrillation Z98.890; Z86.79 Vitamin D deficiency E55.9 Folate deficiency E53.8 Lymphedema I89.0 (6) Anemia Anemia type: unspecified type Qualified Code(s): D64.9 - Anemia, unspecified
[2023-03-04] MEDS: MICONAZOLE NITRATE POWDER 85 GM EXT SCH ×3 (09:00→20:24)
--- NOTE | 2023-03-04 09:10 | Nephrology Progress Note ---
Date of Service March 04, 2023 Assessment & Plan (1) Acute kidney injury superimposed on CKD: Plan: * Progressive ANNA, oliguria while holding diuretic therapy * 03/02/23 Renal US - no hydronephrosis * Mr. Bashir understands that he is suffering from both liver failure and kidney failure. He wishes a trial of dialysis to see if his condition will allow him to return home and continue caring for his * Vascular Surgery placed R IJ THC 03/03/23. 1st run HD was 03/03/23. Will ask catering staff member to redress dialysis catheter and provide 2nd heparin free treatment today * Case Management has been consulted to set up outpatient HD for [facility] w/ Dr. Giraldo * Will plan 3rd HD treatment for tomorrow * Will remove Vela catheter (2) Anemia: Plan: * H/H stable * Epogen 72534 units provided 02/20/23 (3) Bilateral edema of lower extremity: Plan: * Combination of lymphedema, right sided CHF, and venous insufficiency * Diuretics held due to intravascular depletion and progressive renal insufficiency (4) Cirrhosis: Plan: * MELD 30. Prognosis is very poor. Palliative care appreciated. HE improved. Admission and Anticipated Discharge Date Admission Date: February 12, 2023 Subjective Mr. Bashir was evaluated in his hospital room. He underwent R IJ THC by Dr. Smith yesterday. Mr. Bashir underwent 1st run HD yesterday for 500 cc UF. He did develop hypotension w/ SBP 90's during treatment. Review of Systems Constitutional: no fever Eyes: no worsening vision Ear, Nose, Mouth, Throat: no problem reported Respiratory: no cough and no dyspnea Cardiovascular: no chest pain Additional Comments: + LE swelling Gastrointestinal: no abdominal pain Genitourinary: no dysuria, no urinary hesitancy or no hematuria Musculoskeletal: no back pain Integumentary: no rash Neurologic: no falls, no dizziness and no confusion Physical Exam Constitutional: + morbidly obese Eyes: PERRL, conjunctivae normal, anicteric sclerae ENMT: external ear and nose normal, oropharynx normal Neck: trachea midline, no thyromegaly (R IJ THC site with blood soaked dressing) Respiratory: normal respiratory effort, lungs clear to auscultation Cardiovascular: Rate/Rhythm: regular rate and regular rhythm Heart Sounds: + murmur Extremities: + edema (tense pretibial edema) Gastrointestinal (Abdomen): Inspection/Auscultation: + abdomen distended Percussion/Palpation: abdomen nontender and no guarding Neurologic: awake; not confused Results & Data Vital Signs (Past 12 Hours) Vital Signs Temp Pulse Resp BP BP Pulse Ox O2 Del Method 03/04/23 07:38 36.4 C L 64 16 96/48 L 98 Room Air 03/04/23 04:30 36.3 C L 61 18 102/55 L 99 Room Air 03/03/23 23:52 100/60 03/03/23 22:47 36.8 C 69 16 89/47 L 96 Room Air Laboratory Results Laboratory Tests 03/04/23 03/04/23 07:28 07:28 WBC 17.92 H Hgb 10.1 L Hct 29.1 L Plt Count 117 L Sodium 124 L Potassium 4.3 Chloride 89 L Carbon Dioxide 26 BUN 68 H Creatinine 5.18 H* Glucose 146 H Calcium 8.6 Total Bilirubin 3.1 H Direct Bilirubin 1.0 H AST 32 ALT 15 Alkaline Phosphatase 47 Albumin 3.2 L PG Care Time/CCT Total # of Minutes Spent Total Time Spent with Patient: Total time spent is greater than 50% in coordination of care (as documented) at patient's floor/unit and/or counseling patient: Coding Level of Care Code 55694 SUB INP/OBS CARE 3/50MIN Diagnoses Acute kidney injury superimposed on CKD N17.9; N18.9 Anemia D64.9 Anemia type: unspecified type Bilateral edema of lower extremity R60.0 Cirrhosis K74.60 (2) Anemia Anemia type: unspecified type Qualified Code(s): D64.9 - Anemia, unspecified
[2023-03-04] MEDS: LACTULOSE SYRUP 30 GM/45 ML UDP PO SCH ×3 (10:04→20:23)
[2023-03-04] MEDS: METOPROLOL SUCC 50MG EXT REL TAB PO SCH (10:04)
[2023-03-04] MEDS: MESALAMINE PO SCH (15:22)
[2023-03-04] MEDS: allopurinoL 300 MG TAB PO SCH (15:23)
[2023-03-04 16:15] LABS: Hematocrit (blood only) 25.3 % (42.0-52.0); Hemoglobin 8.6 g/dl (14.0-18.0)
[2023-03-04 16:35] LABS: INR 1.4 (0.9-1.1); Prothrombin Time 14.8 Seconds (9.0-12.0)
[2023-03-04] MEDS: traMADol HCL 50 MG TABLET PO PRN (17:10)
[2023-03-04] MEDS: CHOLECALCIFEROL 1,000 UNITS 25 MCG TAB PO SCH (17:10)
[2023-03-04 19:55] LABS: Hematocrit (blood only) 24.5 % (42.0-52.0); Hemoglobin 8.5 g/dl (14.0-18.0)
[2023-03-05] MEDS: LINEZOLID 600 MG/300 ML BAG IV SCH ×2 (01:02→13:31)
[2023-03-05] MEDS: traMADol HCL 50 MG TABLET PO PRN (01:59)
[2023-03-05] MEDS: LEVOTHYROXINE SODIUM 137 MCG TABLET PO SCH (05:43)
[2023-03-05] MEDS ORDERED: CLINDAMYCIN/D5W 900 MG/50 ML BAG IV SCH (06:00)
[2023-03-05] MEDS ORDERED: SODIUM CHLORIDE 0.9% 1000ML 1,000 ML IV PRN (07:00)
[2023-03-05] MEDS: MESALAMINE PO SCH (07:30)
--- NOTE | 2023-03-05 08:13 | Communication Note ---
Date of Service: March 05, 2023 Patient with continued bleeding from permcath site with decrease in hgb. Will need to explore wound and possibley remove or reinsert a new permcath. I have discussed the risks options and benefits of the procedure with the patient. The patient understands the risks options and benefits and agrees to the procedure.
[2023-03-05] MEDS ORDERED: fentaNYL citrate PF 100 MCG/2 ML VIAL ONE (08:15)
[2023-03-05] MEDS ORDERED: ONDANSETRON INJ 2 MG/ML 2 ML VIAL ONE (08:15)
[2023-03-05] MEDS ORDERED: MIDAZOLAM HCL 1 MG/ML 2ML VIAL ONE (08:15)
[2023-03-05] MEDS ORDERED: HEPARIN SOD (PORCINE) 5,000 UNITS/ML VIAL ONE (08:21)
[2023-03-05] MEDS ORDERED: LIDOCAINE/EPINEPHRINE 1% 20 ML VIAL ONE (08:22)
[2023-03-05] MEDS ORDERED: LIDOCAINE 1% LOCAL 20 ML VIAL ONE (08:22)
[2023-03-05 08:25] LABS: Hematocrit (blood only) 20.2 % (42.0-52.0); Mean Corpuscular Hemoglobin 34.3 pg (25.0-34.0); Mean Corpuscular Hgb Conc 34.7 g/dL (32.0-36.0); Mean Platelet Volume 10.7 fL (9.4-12.4); Platelet Count 99 K/uL (130-400); RDW Coefficient of Variation 14.7 % (11.5-14.5); RDW Standard Deviation 53.1 fL (36.4-46.3); Red Blood Count 2.04 M/uL (4.70-6.10)
[2023-03-05] MEDS ORDERED: SODIUM CHLORIDE 0.9% 250 ML IV PRN ×3 (08:26→10:31)
--- NOTE | 2023-03-05 08:34 | Anesthesiology Consultation ---
Date of Service March 05, 2023 Assessment & Plan Consults Requested medical & cardiac Pulmonary History Surgery Operation Date: 03/03/23 11:55 Proposed Procedures p Perm Catheter Placement - Richard Smith MD Operation Date: 03/05/23 08:30 Proposed Procedures p Perm Catheter Repair - Richard Smith MD Height/Weight Height: 5 ft 9 in Weight: 111.9 kg Allergies Allergy/AdvReac Type Severity Reaction Status Date / Time bee venom protein (honey bee) Allergy Severe DYSPNEA;SWE Verified 02/06/23 13:15 LLING latex Allergy Intermediate Rash Verified 02/06/23 13:15 Penicillins Allergy Unknown HAPPENED Verified 02/06/23 13:15 A CHILD Medications Home Medications Medication Instructions Recorded Confirmed Last Taken epinephrine 0.3 mg/0.3 mL 0.3 mg (0.3 mL) IM Q10M PRN 08/06/21 02/12/23 Unknown injection, auto-injector (EpiPen anaphylaxis #2 ea 2-Sb) tadalafil 20 mg tablet 20 mg PO DAILY PRN Erectile 08/06/21 02/12/23 Unknown Dysfunction triamcinolone acetonide 0.1 % 1 applic topical DAILY PRN Skin 02/08/22 02/12/23 Unknown topical ointment Irritation #80 grams metoprolol succinate 100 mg 50 mg PO QAM 04/24/22 02/12/23 02/11/23 tablet,extended release 24 hr levothyroxine 137 mcg tablet 137 mcg PO QPM 09/02/22 02/12/23 02/11/23 menthol 0.44 %-zinc oxide 20.6 % 1 applic EXT DIRECTED 09/17/22 02/12/23 Unknown topical ointment (Calmoseptine) spironolactone 100 mg tablet 100 mg PO QAM #90 tabs 10/31/22 02/12/23 02/11/23 allopurinol 300 mg tablet 300 mg PO QDL 01/07/23 02/12/23 02/11/23 mesalamine 0.375 gram 1.5 g PO QDL 01/07/23 02/12/23 02/11/23 capsule,extended release 24 hr magnesium oxide 400 mg (241.3 mg 400 mg PO BID #60 tabs 01/28/23 02/12/23 02/11/23 magnesium) tablet bumetanide 2 mg tablet 2 mg PO DAILY 02/06/23 02/12/23 02/11/23 Active Medications Generic Name Dose Route Start Last Admin Trade Name Torin PRN Reason Stop Dose Admin Allopurinol 300 mg 02/13/23 11:30 03/04/23 15:23 Allopurinol 300 Mg Tab PO 03/15/23 11:29 300 mg QDL KALLI Administration Famotidine 20 mg 02/12/23 19:00 03/04/23 08:17 Famotidine 20 Mg Tab PO 03/14/23 18:59 20 mg DAILY KALLI Administration Folic Acid 1 mg 02/13/23 09:00 03/04/23 08:17 Folic Acid 1 Mg Tab PO 03/15/23 08:59 1 mg QAM KALLI Administration Heparin Sodium (Porcine) 7,500 units 02/12/23 22:00 03/03/23 20:44 Heparin Sod 5,000 Unit/0.5 Ml Vial SQ 03/14/23 21:59 Not Given Q8 KALLI Bumetanide 4 mg/ Syringe 16 mls @ 4 mls/min 02/16/23 17:00 02/26/23 08:27 IV 03/18/23 16:59 4 mls/min BID@0900,1700 KALLI Administration Linezolid 600 mg in 300 mls @ 200 mls/hr 02/28/23 12:45 03/05/23 03:17 Zyvox IV 03/07/23 02:14 Infused Q12H KALLI Infusion Lactulose 30 gm 03/02/23 09:00 03/04/23 20:23 Lactulose Syrup 30 Gm/45 Ml Udp PO 04/01/23 08:59 Not Given TID KALLI Levothyroxine Sodium 137 mcg 02/16/23 06:30 03/05/23 05:43 Levothyroxine Sodium 137 Mcg Tablet PO 03/18/23 06:29 137 mcg DAILYBB KALLI Administration Magnesium Oxide 400 mg 02/12/23 21:00 03/04/23 20:23 Magnesium Oxide 400 Mg Tab PO 03/14/23 20:59 400 mg BID KALLI Administration Mesalamine 4 each 03/01/23 16:30 03/04/23 15:22 Mesalamine Er 0.375 Mg Caps PO 03/31/23 16:29 Not Given QDB KALLI Metolazone 5 mg 02/17/23 08:30 02/25/23 09:29 Metolazone 5 Mg Tablet PO 03/19/23 08:29 5 mg QAM KALLI Administration Metoprolol Succinate 50 mg 02/13/23 09:00 03/04/23 10:04 Metoprolol Succ 50mg Ext Rel Tab PO 03/15/23 08:59 Not Given QAM KALLI Miconazole Nitrate 1 appln 02/25/23 21:00 03/04/23 20:24 Miconazole Nitrate Powder 85 Gm EXT 03/27/23 20:59 1 appln TID KALLI Administration Rifaximin 550 mg 02/25/23 12:15 03/04/23 20:23 Rifaximin 550 Mg Tablet PO 03/27/23 12:14 550 mg BID KALLI Administration Spironolactone 100 mg 02/13/23 09:00 02/27/23 08:39 Spironolactone 100 Mg Tab PO 03/15/23 08:59 100 mg QAM KALLI Administration Tramadol HCl 50 mg 03/04/23 16:55 03/05/23 01:59 Tramadol Hcl 50 Mg Tablet PO 04/03/23 16:54 50 mg Q6H PRN Administration Pain Vitamin D 3,000 units 02/13/23 09:00 03/04/23 17:10 Cholecalciferol 1,000 Units 25 Mcg Tab PO 03/15/23 08:59 3,000 units QAM KALLI Administration NPO Date Last Intake of Fluids: 03/04/23 Time Last Intake of Fluids: 22:00 Date Last Intake of Solids: 03/04/23 Time Last Intake of Solids: 22:00 Past Medical History Medical History Acute kidney injury Anemia Atrial flutter 10/02/2020: Ablation of typical right atrial isthmus dependent flutter. 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 Ulcerative colitis Venous ulcer of left leg Venous ulcers of both lower extremities Vitamin D deficiency Past Family History Family History Grandmother (Paternal) Colorectal cancer Father Myocardial infarction Prostate cancer Denies family history of Ovarian cancer Dementia Breast cancer Past Surgical History Surgical History H/O hernia repair (12/04/12) H/O laparoscopy H/O left knee surgery H/O lymph node excision 36 total H/O right hemicolectomy 36 lymph nodes removed as well History of appendectomy History of colonoscopy History of esophagogastroduodenoscopy (EGD) History of removal of Port-a-Cath History of tooth extraction Status post ablation of atrial flutter (12/04/12) 2020 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) Social History Smoking Status: Never smoker Hx Alcohol Use: Yes Alcohol type: beer alcohol intake frequency: holidays/special occasions only Hx Substance Use: No substance use type: does not use Physical Exam Vital Signs Last Vital Signs Temp 36.8 C 03/05/23 08:01 Pulse 85 03/05/23 08:01 Resp 18 03/05/23 08:01 BP 118/45 L 03/05/23 08:01 Pulse Ox 98 03/05/23 08:01 O2 Del Method Room Air 03/05/23 08:01 O2 Flow Rate 4 03/03/23 12:25 Testing Laboratory Results 03/05/23 07:54 PT 14.8 Seconds (9.0-12.0) H 03/04/23 15:14 INR 1.4 (0.9-1.1) H 03/04/23 15:14 APTT 31.1 Seconds (21.0-31.0) H 02/12/23 14:10 Urine Color Dark Yellow 02/26/23 01:00 Urine Appearance Turbid (Clear) A 02/26/23 01:00 Urine pH 5.5 (4.5-7.5) 02/26/23 01:00 Ur Specific Maceo 1.017 (1.000-1.030) 02/26/23 01:00 Urine Protein 1+ (Negative) H 02/26/23 01:00 Urine Glucose (UA) Negative (Negative) 02/26/23 01:00 Urine Ketones Trace (Negative) H 02/26/23 01:00 Urine Nitrite Negative (Negative) 02/26/23 01:00 Ur Leukocyte Esterase 3+ (Negative) H 02/26/23 01:00 Urine WBC (Auto) >30 /hpf (0-5) H 02/26/23 01:00 Urine RBC (Auto) >30 /hpf (0-4) H 02/26/23 01:00 U Hyaline Cast (Auto) 10-30 /lpf (0-5) H 02/26/23 01:00 U Epithel Cells (Auto) 10-20 /lpf (0-5) H 02/26/23 01:00 Urine Bacteria (Auto) 1+ (Negative) H 02/26/23 01:00 02/26/23 01:00 Urine Culture - Final Urine,Clean Catch Enterococcus faecium 02/15/23 14:30 Aerobic Blood Culture - Final Blood No growth in Aerobic bottle after 5 days. Anaerobic Blood Culture - Final No growth in Anaerobic bottle after 5 days. 02/15/23 14:42 Aerobic Blood Culture - Final Blood No growth in Aerobic bottle after 5 days. Anaerobic Blood Culture - Final No growth in Anaerobic bottle after 5 days.
[2023-03-05 08:38] LABS: INR 1.4 (0.9-1.1); Prothrombin Time 15.1 Seconds (9.0-12.0)
[2023-03-05 08:47] LABS: Albumin Level 2.7 gm/dl (3.4-5.0); BUN Creatinine Ratio 11.9 (10-20); Bilirubin Direct 0.9 mg/dl (0-0.2); Bilirubin,Total 2.9 mg/dl (0.2-1.0); Creatinine Clr Calc Pharmacy 24.5 ml/min; Est GFR (African American) 18.7 ml/min; Est GFR (Non-African American) 16.2 ml/min; Potassium 4.7 mmol/L (3.5-5.1); Total Protein 5.5 gm/dl (6.0-8.3)
[2023-03-05] MEDS ORDERED: ONDANSETRON INJ 2 MG/ML 2 ML VIAL IV PRN (08:47)
[2023-03-05] MEDS ORDERED: HYDROmorphone INJ 1 MG/ML SYRINGE IV PRN (08:47)
[2023-03-05] MEDS ORDERED: ePHEDrine sulfate 50 MG/ML AMP IV PRN (08:47)
[2023-03-05] MEDS ORDERED: ATROPINE SULFATE 0.1 MG/ML 10ML SYR IV PRN (08:47)
[2023-03-05] MEDS ORDERED: BUPIVACAINE 0.5 % 5 MG/1 ML MPF 30ML VIAL ONE (08:52)
[2023-03-05] MEDS: MAGNESIUM OXIDE 400 MG TAB PO SCH ×2 (09:00→20:22)
[2023-03-05] MEDS: METOPROLOL SUCC 50MG EXT REL TAB PO SCH (09:00)
[2023-03-05] MEDS: rifAXIMin 550 MG TABLET PO SCH ×2 (09:00→20:20)
[2023-03-05] MEDS: MICONAZOLE NITRATE POWDER 85 GM EXT SCH ×3 (09:00→20:31)
[2023-03-05] MEDS: FOLIC ACID 1 MG TAB PO SCH (09:00)
[2023-03-05] MEDS: FAMOTIDINE 20 MG TAB PO SCH (09:00)
[2023-03-05] MEDS: LACTULOSE SYRUP 30 GM/45 ML UDP PO SCH ×3 (09:00→20:20)
[2023-03-05] MEDS: CHOLECALCIFEROL 1,000 UNITS 25 MCG TAB PO SCH (09:00)
[2023-03-05] MEDS ORDERED: ARISTA ABSORBABLE HEMOSTAT 3GM TOP ONE (09:10)
--- NOTE | 2023-03-05 09:11 | Hospitalist Progress Note ---
Date of Service March 05, 2023 Assessment & Plan (1) Volume overload: Plan: Multifactorial -- cirrhosis, progressive CKD Holding further oral/IV diuretics for progressive renal decline Decreased fluid restriction to 1L/daily - Na 124 on today. Renal US revealed no definite hydronephrosis Vela in place (per nephrology removing Vela today) Patient was to have 3rd dialysis today, but has had continued bleeding at permcath site and now with ABLA and Hgb 7, being transfused and taken back to the OR to explore wound and possible remove/reinsert new permcath Getting 2 unit transfusion and will repeat H&H after and repeat CBC in AM (2) Acute kidney injury superimposed on CKD: Plan: Acute/unstable - volume overload combination cirrhosis/progressive CKD/CHF, noncompliacne w/ meds at home over past year caring for his . 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 was 1.5-1.6, progressive decline over past year Nephrology following 1L fluid restriction Labs reviewed Cr 5.03 S/P right perm catheter placed and receiving dialysis Renal US no definite hydronephrosis Monitor labs in AM (3) Lethargy: Plan: Acute/unstable --> IMPROVED/stable Increased lethargy/hepatic encephalopathy 02/25, ammonia improving on lactulose Rifaximin initiated BID 02/25 - will need new rx at d/c CXR w/o acute process CO2 elevated on labs 02/25, obtained VBG c/w hypercapnia Overnight pulse ox to determine nocturnal hypoxia - schedule 2L HS for now, will need outpt sleep study UA/culture obtained, finalized enterococcus - placed on Linezolid to avoid vanc/dapto given his kidney function PTH low,appropriate given hypercalcemia. Per nephro, felt elevated Ca driven by diuretic therapy. Continue current course Palliative consulted, DNR but wanting to undergo treatment as offered. Ultimate goal is rehab/home for patient, however not had PT/OT evals prior -- rehab rec, but will plan for home w/ HH when able (4) UTI (urinary tract infection): Plan: new since admit, prior cx negative Cx as above, switched to Linezolid to complete course for UTI on 02/28 Reviewed CBC today, Hgb dropped to 7 secondary to bleeding at permcath site WBC trended up and PLT decreasing Consulted ID regarding antibiotic (Linezolid and kidney disease and changes on CBC) Per ID will continue the Linezolid for now and will check blood cultures Vela in place (5) Cirrhosis: Plan: Acute on chronic/unstable - high risk Known hx in chart, however patient denied knowing this. Do consume beer, no excessive heavy use reported (educated to stop) --? 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 >50% 3 month mortality discussed w/ patient. Prior Palliaitve consulted, made DNR GI/Hepatology follow up q 6 months with U/S and AFP AFP 2.2 on 02/23/23 Monitor MELD labs Nephrology as above to assist w/ volume management (6) Anemia: Plan: Now with ABLA secondary to continued bleeding from permcath Had transfusion and was taken back to OR for exploration of permcath wound (hx CML following w/ CCP -- in remission per discussion w/ Dr Lima, but she will order BCRABL PCR for eval Checked iron panel, Venofer x4 doses this admission per nephrology - B12 wnl, Folate low prior and continues on supplementation (improved from last month, not on home med list but pt states had been taking) - Fecal occult NEGATIVE) (7) S/P ablation of atrial fibrillation: Plan: Stable and chronic - Not currently on anticoagulation, ablation was remote while living in [place] - EKG on admit NSR, L anterior fascicular block, RBBB - Continue metoprolol succinate 50mg daily with hold parameters - clarified was previously on AC in September d/t blood clot - Stopped d/t issues of GI bleeding reported (also has diarrhea baseline w/ ulcerative colitis) - Prior to ablation was only on aspirin but patient reported some bleeding w/ such - continued discussions for at least ASA at d/c pending risk/benefit (8) Vitamin D deficiency: Plan: Acute/unstable Vit D low, replacement ordered PTh checked given hypercalcemia, appropriately low - continue current course (9) Folate deficiency: Plan: Acute/unstable - prior low dec 2022, repeat ordered and replacement (10) Lymphedema: Plan: Chronic/stable Wound RN consulted, appreciate assistance - amlactin ordered Monitor for any infection, just completed course Zosyn for LE cellulitis legs less heavy, more mobility for patient will need outpt f/u Also w hx CML, to be monitored by CCP - appears previously on Sprycel but patient d/c due to weight gain/edema. Was to start Gleevec per most recent note but doesn't appear this ever occurred. - reached out to heme/onc, Dr Lima for discussion given complex case above --> was stopped meds ~6 months ago, in remission. She will check lab for further info Plan continued inpatient stay 2nd dialysis treatment yesterday was to have 3rd today but continued bleeding at perma cath site Hgb dropped this AM to 7 and was transfused and taken back to OR Bleeding site found in chest wall muscle and was cauterized Admission and Anticipated Discharge Date Admission Date: February 12, 2023 Subjective Mr Bashir has ABLA secondary to conotnied bleeding from permcath site with a Hgb this AM of 7 and is currently being transfused 2 units and vascular surgery plans to take back to the OR to explore wound and possibly remove or reinsert a new permcath. Review of Systems Review of Systems: Patient denies any chest pain, SOB, nausea abdominal pain, constipation. Still with lower extremity swelling/lymphedema. + fatigue Physical Exam Constitutional: + morbidly obese and + lethargic; not in distress Neck: trachea midline, no thyromegaly Respiratory: normal respiratory effort, lungs clear to auscultation Cardiovascular: Rate/Rhythm: regular rate Heart Sounds: + murmur Extremities: + edema Gastrointestinal (Abdomen): normal bowel sounds, soft, nontender, no hepatosplenomegaly Skin: ecchymoses right chest wall secondary to permcath surgery Psychiatric: A+Ox3, euthymic affect Lymphatic: + lymphedema Results & Data Results & Data Vital Signs (Past 12 Hours) Vital Signs Temp Pulse Pulse Pulse Resp BP BP 03/05/23 08:01 36.8 C 85 18 118/45 L 03/05/23 07:27 36.7 C 81 105/46 L 03/05/23 05:45 36.7 C 78 16 101/45 L 03/05/23 01:00 91/47 L 03/05/23 00:30 101/40 L Pulse Ox O2 Del Method 03/05/23 08:01 98 Room Air 03/05/23 07:27 97 Room Air 03/05/23 05:45 98 Room Air 03/05/23 01:00 03/05/23 00:30 Laboratory Results Abnormal lab results 03/04/23 03/04/23 03/05/23 Range/Units 15:14 19:31 07:54 WBC 17.30 H (4.8-10.8) K/ul RBC 2.04 L (4.70-6.10) M/uL Hgb 8.5 L 7.0 L (14.0-18.0) g/dl Hct 24.5 L 20.2 L* (42.0-52.0) % MCH 34.3 H (25.0-34.0) pg RDW Std Deviation 53.1 H (36.4-46.3) fL RDW Coeff of Howie 14.7 H (11.5-14.5) % Plt Count 99 L (130-400) K/uL PT 14.8 H (9.0-12.0) Seconds INR 1.4 H (0.9-1.1) Sodium (136-145) mmol/L Chloride (98-107) mmol/L BUN (6-23) mg/dl Creatinine (0.6-1.4) mg/dl Glucose (70-99(Fasting)) mg/dl Calcium (8.6-10.3) mg/dl Total Bilirubin (0.2-1.0) mg/dl Direct Bilirubin (0-0.2) mg/dl Total Protein (6.0-8.3) gm/dl Albumin (3.4-5.0) gm/dl Crossmatch 03/05/23 03/05/23 03/05/23 Range/Units 07:54 07:54 08:34 WBC (4.8-10.8) K/ul RBC (4.70-6.10) M/uL Hgb (14.0-18.0) g/dl Hct (42.0-52.0) % MCH (25.0-34.0) pg RDW Std Deviation (36.4-46.3) fL RDW Coeff of Howie (11.5-14.5) % Plt Count (130-400) K/uL PT 15.1 H (9.0-12.0) Seconds INR 1.4 H (0.9-1.1) Sodium 126 L (136-145) mmol/L Chloride 95 L (98-107) mmol/L BUN 44 H D (6-23) mg/dl Creatinine 3.70 H D (0.6-1.4) mg/dl Glucose 122 H (70-99(Fasting)) mg/dl Calcium 8.0 L (8.6-10.3) mg/dl Total Bilirubin 2.9 H (0.2-1.0) mg/dl Direct Bilirubin 0.9 H (0-0.2) mg/dl Total Protein 5.5 L D (6.0-8.3) gm/dl Albumin 2.7 L (3.4-5.0) gm/dl Crossmatch See Detail PG Care Time/CCT Total # of Minutes Spent Total Time Spent with Patient: Total time spent is greater than 50% in coordination of care (as documented) at patient's floor/unit and/or counseling patient: Coding Level of Care Code 52601 SUB INP/OBS CARE 3/50MIN Diagnoses Volume overload E87.70 Acute kidney injury superimposed on CKD N17.9; N18.9 Lethargy R53.83 UTI (urinary tract infection) N39.0 Cirrhosis K74.60 Anemia D64.9 Anemia type: other cause S/P ablation of atrial fibrillation Z98.890; Z86.79 Vitamin D deficiency E55.9 Folate deficiency E53.8 Lymphedema I89.0 (6) Anemia Anemia type: other cause
[2023-03-05] MEDS ORDERED: SURGICEL ABSORB HEMOSTAT 2IN X 14IN TOP ONE (09:24)
--- NOTE | 2023-03-05 09:24 | Post Operative Brief Note ---
Immediate Post Op Note v1 Date of Surgery March 05, 2023 Pre & Post Diagnosis Operation Date: 03/05/23 08:30 Pre-Op Diagnosis: Post Op Bleeding Post-Op Diagnosis: Post Op Bleeding I identified the patient and participated in the time-out.: Yes Procedure Operation Date: 03/05/23 08:30 Actual Procedures p Exploration of wound, Control of Period. - Richard Smith MD Surgeon Richard Smith MD Audio Visual Arts Director Diego Vicente MD Estimated Blood Loss 5 Findings Consistent with Post-Op Diagnosis Anesthesia Type MAC Complications none
--- NOTE | 2023-03-05 09:27 | Operative Report ---
Post Operative Report Pre & Post Diagnosis Operation Date: 03/05/23 08:30 Pre-Op Diagnosis: Post Op Bleeding Post-Op Diagnosis: Post Op Bleeding I identified the patient and participated in the time-out.: Yes Procedure Operation Date: 03/05/23 08:30 Actual Procedures p Exploration of wound, Control of Period. - Richard Smith MD Surgeon Richard Smith MD [id number] Consultant Diego Vicente Estimated Blood Loss 5 Findings Consistent with Post-Op Diagnosis Specimens None Drains None Anesthesia Type MAC Complications None immediate Indications This is a 67-year-old male with history of end-stage renal disease underwent PermCath placement for dialysis access on Friday but he continued to have oozing around the catheter and his hemoglobin dropped from 10.5 to 7 this morning. Patient was consented for return back to the OR for exploration of the PermCath and possible replacement. Description of Procedure Patient was brought to the OR and placed in supine position. The compression dressing was removed and there appears to be old clot as well as continuous ooze from the tunnel site. The anterior right chest and neck were prepped and draped in standard sterile fashion. Safety timeout was performed to identify the patient's name, date of and the correct site of the procedure. Local anesthesia was administered and vertical skin slit was made over the anterior surface of the catheter. We identified a source of the bleeding just under the catheter that appears to be from the chest wall muscle. This was managed with Bovie cautery. Rebecca and manual pressure was applied. The skin edges were reapproximated using 3-0 nylon. More local lidocaine and epi was administered under the catheter. Manual pressure was held afterwards and we monitored geoff sely for rebleeding which did not occur. Patient tolerated the procedure very well. A unit of blood was administered. A piece of Surgicel was placed around the catheter at the skin edge. All counts were correct at the end of the procedure. Dr. Smith was present for the entirety of the procedure. I attest to the content of the Intraoperative Record and any orders documented therein. Any exceptions are noted below.
--- NOTE | 2023-03-05 10:52 | Nephrology Progress Note ---
Date of Service March 05, 2023 Assessment & Plan (1) Acute kidney injury superimposed on CKD: Plan: * Progressive ANNA, oliguria while holding diuretic therapy * 03/02/23 Renal US - no hydronephrosis * Mr. Bashir understands that he is suffering from both liver failure and kidney failure. He wishes a trial of dialysis to see if his condition will allow him to return home and continue caring for his * Vascular Surgery placed R IJ THC 03/03/23. 1st run HD was 03/03/23, 2nd treatment was 03/04/23. R IJ THC replaced 03/05/23 due to bleeding at exit site * Primary service is transfusing 1 U PRBC this morning * Will hold HD today to allow patient to recover from surgery/new IJ THC * Case Management has set up outpatient HD at [facility] at 10:45 am starting 03/11/23 (2) Anemia: Plan: * Hgb 7.0 this am. Currently receiving one unit PRBC * Epogen 47144 units provided 02/20/23 (3) Bilateral edema of lower extremity: Plan: * Combination of lymphedema, right sided CHF, and venous insufficiency * Diuretics held due to intravascular depletion and progressive renal insufficiency (4) Cirrhosis: Plan: * MELD 30. Prognosis is very poor. Palliative care appreciated. HE improved. Admission and Anticipated Discharge Date Admission Date: February 12, 2023 Subjective Mr. Bashir was seen in his hospital room following new R IJ THC insertion. He awakens to voice and will follow simple one step commands. He is in no respiratory distress Review of Systems Constitutional: no fever Eyes: no worsening vision Ear, Nose, Mouth, Throat: no problem reported Respiratory: no cough and no dyspnea Cardiovascular: no chest pain Additional Comments: + LE swelling Gastrointestinal: no abdominal pain Genitourinary: no dysuria, no urinary hesitancy or no hematuria Musculoskeletal: no back pain Integumentary: no rash Neurologic: no falls, no dizziness and no confusion Physical Exam Constitutional: + morbidly obese Eyes: PERRL, conjunctivae normal, anicteric sclerae ENMT: external ear and nose normal, oropharynx normal Neck: trachea midline, no thyromegaly (R IJ THC site with blood soaked dressing) Respiratory: normal respiratory effort, lungs clear to auscultation Cardiovascular: Rate/Rhythm: regular rate and regular rhythm Heart Sounds: + murmur Extremities: + edema (tense pretibial edema) Gastrointestinal (Abdomen): Inspection/Auscultation: + abdomen distended Pe rcussion/Palpation: abdomen nontender and no guarding Neurologic: awake; not confused Results & Data Vital Signs (Past 12 Hours) Vital Signs Temp Pulse Pulse Pulse Pulse Resp BP 03/05/23 10:30 36.7 C 83 110/50 L 03/05/23 10:16 36.6 C 83 17 109/40 L 03/05/23 10:15 83 17 03/05/23 10:10 83 15 03/05/23 10:00 36.5 C 85 14 03/05/23 09:55 87 18 03/05/23 10:01 36.5 C 85 14 120/41 L 03/05/23 08:01 36.8 C 85 18 03/05/23 07:27 36.7 C 81 03/05/23 05:45 36.7 C 78 16 03/05/23 01:00 03/05/23 00:30 BP BP Pulse Ox O2 Del Method O2 Flow Rate 03/05/23 10:30 03/05/23 10:16 100 4 03/05/23 10:15 109/40 L 100 Nasal Cannula 4 03/05/23 10:10 111/41 L 100 Nasal Cannula 4 03/05/23 10:00 120/41 L 100 Nasal Cannula 4 03/05/23 09:55 119/46 L 100 Nasal Cannula 4 03/05/23 10:01 100 03/05/23 08:01 118/45 L 98 Room Air 03/05/23 07:27 105/46 L 97 Room Air 03/05/23 05:45 101/45 L 98 Room Air 03/05/23 01:00 91/47 L 03/05/23 00:30 101/40 L Laboratory Results Laboratory Tests 03/05/23 03/05/23 07:54 07:54 WBC 17.30 H Hgb 7.0 L Hct 20.2 L* Plt Count 99 L Sodium 126 L Potassium 4.7 Chloride 95 L Carbon Dioxide 26 BUN 44 H D Creatinine 3.70 H D Glucose 122 H Calcium 8.0 L Total Bilirubin 2.9 H Direct Bilirubin 0.9 H AST 22 ALT 12 Alkaline Phosphatase 39 Albumin 2.7 L PG Care Time/CCT Total # of Minutes Spent Total Time Spent with Patient: Total time spent is greater than 50% in coordination of care (as documented) at patient's floor/unit and/or counseling patient: Coding Level of Care Code 37955 SUB INP/OBS CARE 350MIN Diagnoses Acute kidney injury superimposed on CKD N17.9; N18.9 Anemia D64.9 Anemia type: unspecified type Bilateral edema of lower extremity R60.0 Cirrhosis K74.60 (2) Anemia Anemia type: unspecified type Qualified Code(s): D64.9 - Anemia, unspecified
[2023-03-05] MEDS: allopurinoL 300 MG TAB PO SCH (12:19)
--- NOTE | 2023-03-05 13:10 | Infectious Disease Consult ---
Date of Consultation March 05, 2023 Assessment & Plan (1) Lethargy: #Leukocytosis #UTI #Penicillin Allergy (tolerated Ceftriaxone, Zosyn) #Acute on CKD #Cirrhosis MICRO 02/26 UCX E. faecium 02/15 BCX NG ABX Linezolid 02/28 Clindamycin 03/05 - 67-year-old M with h/o Afib s/p ablation, stage 3A CKD, venous insufficiency, CML, appendiceal cancer s/p partial colonic resection as well as removal of numerous lymph nodes, Ulcerative colitis, PAD, GERD, hypothyroidism, and CML S/P chemo/radiation with resultant lymphedema, recently admitted for 01/22-01/28 for RLE cellulitis, 01/22 Blood cultures 11/27 bottles are Achromobacter (S: Zosyn), BCID is negative, treated with IV Zosyn, 2 weeks from first negative blood culture through 02/07. Patient was admitted on 02/12/23 with c/o SOB and LE swelling. He underwent PermCath placement for dialysis access on 03/03 but he continued to have oozing around the catheter and his hemoglobin dropped from 10.5 to 7. He returned to OR. ID consulted for antibiotic management. On admission, he was HD stable. WBC normal.Chest xray was read "1. Faint bibasilar airspace opacities which may represent atelectasis, pneumonia, and/or aspiration. He was diuresed. His hospital course focused on diuresis due to overload and he was diuresed. Unfortunately his kidney function worsened. Ultimately decision by nephrology to pursue dialysis. He was noted to have increasing lethargy. Source was not clear. Thought to be secondary to hepatic encephalopathy from cirrhosis. Leukocytosis worsening. 02/15 Blood cultures no growth. CXR on 02/25 no acute infectious etiology. Renal ultrasound no hydronephrosis. UA/Ucx checked. Ceftriaxone was initiated on 02/26 but changed to Zosyn, given results of Ucx, changed to Linezolid once it was finalized to E. faecium (S Linezolid, Vanco, Daptomycin) Vascular Surgery placed R IJ THC 03/03/23. 1st run HD was 03/03/23, 2nd treatment was 03/04/23. R IJ THC replaced 03/05/23 due to bleeding at exit site ID consulted today for leukocytosis. Discussion: Patient Renal/Liver failure with lethargy (improved) and ongoing leukocytosis, He is on Day 6 of Linezolid for enterococcal UTI. He is also have current oozing at site of HD catheter, currently in OR. Unclear need for Clindamycin I would recommend blood cultures and will await OR findings (2) UTI (urinary tract infection): (3) Acute blood loss anemia: (4) Cirrhosis: Plan -Clindamycin used just pre-op -OR results/wound -CHeck Blood cultures -C/W linezolid for now Thank you I spoke with Primary regarding my recommendations Angely Gonzales MD Infectious Diseases [facility] Consultation Information This patient recommendation is based on a telemedicine consult request which was completed asynchronously through chart review and information provided by the primary physician. The patient was not seen or examined today. The evaluation is consultative in nature and all patient care and treatment decisions can either be accepted or rejected by the patient's primary hospital-based treating physician using their own independent medical judgment for their patient. [employer]ter contact information: Please call [facility] Call Center [phone]. (Phone Number For Physician Use Only) Time Spent Reviewing Chart: 31+ minutes History of Present Illness Reason for Consultation: leukocytosis Requesting Physician: Cyrus Sellers Attending Physician: Cyrus Sellers History of Present Illness 67-year-old M with h/o Afib s/p ablation, stage 3A CKD, venous insufficiency, CML, appendiceal cancer s/p partial colonic resection as well as removal of numerous lymph nodes, Ulcerative colitis, PAD, GERD, hypothyroidism, and CML S/P chemo/radiation with resultant lymphedema, recently admitted for 01/22-01/28 for RLE cellulitis, 01/22 Blood cultures 11/27 bottles are Achromobacter (S: Zosyn), BCID is negative, treated with IV Zosyn, 2 weeks from first negative blood culture through 02/07. Patient was admitted on 02/12/23 with c/o SOB and LE swelling. He underwent PermCath placement for dialysis access on 03/03 but he continued to have oozing around the catheter and his hemoglobin dropped from 10.5 to 7. He returned to OR. ID consulted for antibiotic management. On admission, he was HD stable. WBC normal.Chest xray was read "1. Faint bibasilar airspace opacities which may represent atelectasis, pneumonia, and/or aspiration. He was diuresed. His hospital course focused on diuresis due to overload and he was diuresed. Unfortunately his kidney function worsened. Ultimately decision by nephrology to pursue dialysis. He was noted to have increasing lethargy. Source was not clear. Thought to be secondary to hepatic encephalopathy from cirrhosis. Leukocytosis worsening. 02/15 Blood cultures no growth. CXR on 02/25 no acute infectious etiology. Renal ultrasound no hydronephrosis. UA/Ucx checked. Ceftriaxone was initiated on 02/26 but changed to Zosyn, given results of Ucx, changed to Linezolid once it was finalized to E. faecium (S Linezolid, Vanco, Daptomycin) Vascular Surgery placed R IJ THC 03/03/23. 1st run HD was 03/03/23, 2nd treatment was 03/04/23. R IJ THC replaced 03/05/23 due to bleeding at exit site ID consulted today for leukocytosis. Allergies Allergy/AdvReac Type Severity Reaction Status Date / Time bee venom protein (honey bee) Allergy Severe DYSPNEA;SWE Verified 02/06/23 13:15 LLING latex Allergy Intermediate Rash Verified 02/06/23 13:15 Penicillins Allergy Unknown HAPPENED Verified 02/06/23 13:15 A CHILD Home Medications Medication Instructions Recorded Confirmed Type epinephrine 0.3 mg/0.3 mL 0.3 mg (0.3 mL) IM Q10M PRN 08/06/21 02/12/23 Rx injection, auto-injector (EpiPen anaphylaxis #2 ea 2-Sb) tadalafil 20 mg tablet 20 mg PO DAILY PRN Erectile 08/06/21 02/12/23 History Dysfunction triamcinolone acetonide 0.1 % 1 applic topical DAILY PRN Skin 02/08/22 02/12/23 Rx topical ointment Irritation #80 grams metoprolol succinate 100 mg 50 mg PO QAM 04/24/22 02/12/23 History tablet,extended release 24 hr levothyroxine 137 mcg tablet 137 mcg PO QPM 09/02/22 02/12/23 History menthol 0.44 %-zinc oxide 20.6 % 1 applic EXT DIRECTED 09/17/22 02/12/23 History topical ointment (Calmoseptine) spironolactone 100 mg tablet 100 mg PO QAM #90 tabs 10/31/22 02/12/23 Rx allopurinol 300 mg tablet 300 mg PO QDL 01/07/23 02/12/23 History mesalamine 0.375 gram 1.5 g PO QDL 01/07/23 02/12/23 History capsule,extended release 24 hr magnesium oxide 400 mg (241.3 mg 400 mg PO BID #60 tabs 01/28/23 02/12/23 Rx magnesium) tablet bumetanide 2 mg tablet 2 mg PO DAILY 02/06/23 02/12/23 History Patient History Medical History Acute kidney injury Anemia Atrial flutter 10/02/2020: Ablation of typical right atrial isthmus dependent flutter. 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 Giraldo Cirrhosis CML (chronic myelocytic leukemia) no chemo at present COVID-19 GERD (gastroesophageal reflux disease) Hemangioma History of COVID-12 Dec 2021 > not hospitalized Hypertension Hypokalemia Hypothyroidism Low platelet count Lymphedema Murmur Paroxysmal A-fib resolved with ablation Pulmonary embolism Aug 2022 > was treated with Eliquis and now finished Right heart failure SVT (supraventricular tachycardia) 01/21/2012: Ablation of typical slow fast AVNRT [facility] Trifascicular block follows with Dr. Painter Ulcerative colitis Venous ulcer of left leg Venous ulcers of both lower extremities Vitamin D deficiency Surgical History H/O hernia repair (12/04/12) H/O laparoscopy H/O left knee surgery H/O lymph node excision 36 total H/O right hemicolectomy 36 lymph nodes removed as well History of appendectomy History of colonoscopy History of esophagogastroduodenoscopy (EGD) History of removal of Port-a-Cath History of tooth extraction Status post ablation of atrial flutter (12/04/12) 2020 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) Family History Grandmother (Paternal) Colorectal cancer Father Myocardial infarction Prostate cancer Denies family history of Ovarian cancer Dementia Breast cancer Social History Smoking Status: Never smoker Second Hand Exposure: No; Hx Alcohol Use: Yes Alcohol type: beer Hx Substance Use: No Preferred Language: Croatian Communication Ability: Effective Visual Impairment: Limited Hearing Ability: Normal Structural Manager Required: No Beliefs That Will Affect Care: Protestant marital status: Current Living Situation: Spouse Current Living Situation Comment: Lives with who has her own healthcare issues 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 How many Children do You have: 2 Other Information That Helps Us Care for You: No Feels Safe at Home: Yes Safety Concerns: Feels Safe At This Time Childhood Exposure to Second-Hand Smoke: No Diet Comment: 2000 cc fluid restriction during the past year weight has: increased > 10 lbs Dental Care, Regularly: Yes Physical Activity Frequency: Daily Seatbelt Use: always Sunscreen Use: Yes Assistive Devices: Cane Results & Data Vital Signs (Past 12 Hours) Vital Signs Temp Pulse Pulse Pulse Pulse Resp BP 03/05/23 12:46 36.3 C L 84 18 116/54 L 03/05/23 11:46 36.3 C L 86 18 104/53 L 03/05/23 10:46 36.2 C L 85 24 110/53 L 03/05/23 10:30 36.7 C 83 110/50 L 03/05/23 10:16 36.6 C 83 17 109/40 L 03/05/23 10:15 83 17 03/05/23 10:10 83 15 03/05/23 10:00 36.5 C 85 14 03/05/23 09:55 87 18 03/05/23 10:01 36.5 C 85 14 120/41 L 03/05/23 08:01 36.8 C 85 18 03/05/23 07:27 36.7 C 81 03/05/23 05:45 36.7 C 78 16 BP BP Pulse Ox O2 Del Method O2 Flow Rate 03/05/23 12:46 100 4 03/05/23 11:46 100 03/05/23 10:46 100 4 03/05/23 10:30 03/05/23 10:16 100 4 03/05/23 10:15 109/40 L 100 Nasal Cannula 4 03/05/23 10:10 111/41 L 100 Nasal Cannula 4 03/05/23 10:00 120/41 L 100 Nasal Cannula 4 03/05/23 09:55 119/46 L 100 Nasal Cannula 4 03/05/23 10:01 100 03/05/23 08:01 118/45 L 98 Room Air 03/05/23 07:27 105/46 L 97 Room Air 03/05/23 05:45 101/45 L 98 Room Air Laboratory Results Laboratory Results - last 48 hr 03/01/23 03/04/23 03/04/23 09:50 07:28 07:28 WBC 17.92 H RBC 2.96 L Hgb 10.1 L Hct 29.1 L MCV 98.3 MCH 34.1 H MCHC 34.7 RDW Std Deviation 53.7 H RDW Coeff of Howie 14.6 H Plt Count 117 L MPV 10.7 PT 14.6 H INR 1.4 H Sodium Potassium Chloride Carbon Dioxide Anion Gap BUN Creatinine Est Cr Clr Drug Dosing Est GFR ( Amer) Est GFR (Non-Af Amer) BUN/Creatinine Ratio Glucose Calcium Total Bilirubin Direct Bilirubin AST ALT Alkaline Phosphatase Ammonia Total Protein Albumin Hep Bs Antibody, Quant <5 L Blood Type Blood Type Recheck Antibody Screen Crossmatch 03/04/23 03/04/23 03/04/23 07:28 07:28 15:14 WBC RBC Hgb Hct MCV MCH MCHC RDW Std Deviation RDW Coeff of Howie Plt Count MPV PT 14.8 H INR 1.4 H Sodium 124 L Potassium 4.3 Chloride 89 L Carbon Dioxide 26 Anion Gap 9 BUN 68 H Creatinine 5.18 H* Est Cr Clr Drug Dosing 17.5 Est GFR ( Amer) 12.5 Est GFR (Non-Af Amer) 10.8 BUN/Creatinine Ratio 13.1 Glucose 146 H Calcium 8.6 Total Bilirubin 3.1 H Direct Bilirubin 1.0 H AST 32 ALT 15 Alkaline Phosphatase 47 Ammonia 43.0 Total Protein 6.9 Albumin 3.2 L Hep Bs Antibody, Quant Blood Type Blood Type Recheck Antibody Screen Crossmatch 03/04/23 03/04/23 03/05/23 15:14 19:31 07:54 WBC 17.30 H RBC 2.04 L Hgb 8.6 L 8.5 L 7.0 L Hct 25.3 L 24.5 L 20.2 L* MCV 99.0 MCH 34.3 H MCHC 34.7 RDW Std Deviation 53.1 H RDW Coeff of Howie 14.7 H Plt Count 99 L MPV 10.7 PT INR Sodium Potassium Chloride Carbon Dioxide Anion Gap BUN Creatinine Est Cr Clr Drug Dosing Est GFR ( Amer) Est GFR (Non-Af Amer) BUN/Creatinine Ratio Glucose Calcium Total Bilirubin Direct Bilirubin AST ALT Alkaline Phosphatase Ammonia Total Protein Albumin Hep Bs Antibody, Quant Blood Type Blood Type Recheck Antibody Screen Crossmatch 03/05/23 03/05/23 03/05/23 07:54 07:54 08:34 WBC RBC Hgb Hct MCV MCH MCHC RDW Std Deviation RDW Coeff of Howie Plt Count MPV PT 15.1 H INR 1.4 H Sodium 126 L Potassium 4.7 Chloride 95 L Carbon Dioxide 26 Anion Gap 5 BUN 44 H D Creatinine 3.70 H D Est Cr Clr Drug Dosing 24.5 Est GFR ( Amer) 18.7 Est GFR (Non-Af Amer) 16.2 BUN/Creatinine Ratio 11.9 Glucose 122 H Calcium 8.0 L Total Bilirubin 2.9 H Direct Bilirubin 0.9 H AST 22 ALT 12 Alkaline Phosphatase 39 Ammonia Total Protein 5.5 L D Albumin 2.7 L Hep Bs Antibody, Quant Blood Type A Negative Blood Type Recheck Antibody Screen NEGATIVE Crossmatch See Detail 03/05/23 08:42 WBC RBC Hgb Hct MCV MCH MCHC RDW Std Deviation RDW Coeff of Howie Plt Count MPV PT INR Sodium Potassium Chloride Carbon Dioxide Anion Gap BUN Creatinine Est Cr Clr Drug Dosing Est GFR ( Amer) Est GFR (Non-Af Amer) BUN/Creatinine Ratio Glucose Calcium Total Bilirubin Direct Bilirubin AST ALT Alkaline Phosphatase Ammonia Total Protein Albumin Hep Bs Antibody, Quant Blood Type Blood Type Recheck A Negative Antibody Screen Crossmatch Microbiology 02/26/23 01:00 Urine,Clean Catch Urine Culture - Final Enterococcus faecium 02/15/23 14:30 Blood Aerobic Blood Culture - Final No growth in Aerobic bottle after 5 days. 02/15/23 14:30 Blood Anaerobic Blood Culture - Final No growth in Anaerobic bottle after 5 days. 02/15/23 14:42 Blood Aerobic Blood Culture - Final No growth in Aerobic bottle after 5 days. 02/15/23 14:42 Blood Anaerobic Blood Culture - Final No growth in Anaerobic bottle after 5 days. Medications Administered Current Inpatient Medications Allopurinol (Allopurinol 300 Mg Tab) 300 mg PO QDL [facility] Stop: 03/15/23 11:29 Last Admin: 03/05/23 12:19 Dose: Not Given Atropine Sulfate (Atropine Sulfate 0.1 Mg/Ml 10ml Syr) 0.5 mg IV Q1M PRN PRN Reason: PACU Use-HR<40 &/or Bradycardi Stop: 03/05/23 16:48 Ephedrine Sulfate (Ephedrine Sulfate 50 Mg/Ml Amp) 5 mg IV Q5M PRN PRN Reason: PACU Use Only-SBP<90 mmHg Stop: 03/05/23 16:48 Famotidine (Famotidine 20 Mg Tab) 20 mg PO DAILY [facility] Stop: 03/14/23 18:59 Last Admin: 03/05/23 09:00 Dose: Not Given Folic Acid (Folic Acid 1 Mg Tab) 1 mg PO QAM [facility] Stop: 03/15/23 08:59 Last Admin: 03/05/23 09:00 Dose: Not Given Heparin Sodium (Porcine) (Heparin Sod 5,000 Unit/0.5 Ml Vial) 7,500 units SQ Q8 [facility] Stop: 03/14/23 21:59 Last Admin: 03/03/23 20:44 Dose: Not Given Hydromorphone HCl (Hydromorphone Inj 1 Mg/Ml Syringe) 0.25 mg IV Q5M PRN PRN Reason: PACU Use Only-Pain Stop: 03/05/23 16:48 Hydroxyzine HCl (Hydroxyzine Hcl 25 Mg Tab) 25 mg PO DAILY PRN PRN Reason: Anxiety Stop: 03/20/23 19:32 Bumetanide 4 mg/ Syringe 16 mls @ 4 mls/min IV BID@0900,1700 [facility] Stop: 03/18/23 16:59 Last Admin: 02/26/23 08:27 Dose: 4 mls/min Linezolid (Zyvox) 600 mg in 300 mls @ 200 mls/hr IV Q12H [facility] Stop: 03/07/23 02:14 Last Admin: 03/05/23 13:31 Dose: 200 mls/hr Clindamycin Phosphate (Cleocin/D5w) 900 mg in 50 mls @ 100 mls/hr IV PREOP [facility] Stop: 03/06/23 05:59 Last Infusion: 03/05/23 12:19 Dose: Infused Sodium Chloride (Nss) 250 mls @ 15 mls/hr IV .[id number] PRN PRN Reason: For Transfusion Duration Stop: 03/05/23 18:31 Sodium Chloride (Nss) 250 mls @ 15 mls/hr IV .[id number] PRN PRN Reason: For Transfusion Duration Stop: 03/05/23 20:37 Lactulose (Lactulose Syrup 30 Gm/45 Ml Udp) 30 gm PO TID [facility] Stop: 04/01/23 08:59 Last Admin: 03/05/23 09:00 Dose: Not Given Levothyroxine Sodium (Levothyroxine Sodium 137 Mcg Tablet) 137 mcg PO DAILYBB [facility] Stop: 03/18/23 06:29 Last Admin: 03/05/23 05:43 Dose: 137 mcg Magnesium Oxide (Magnesium Oxide 400 Mg Tab) 400 mg PO BID [facility] Stop: 03/14/23 20:59 Last Admin: 03/05/23 09:00 Dose: Not Given Mesalamine (Mesalamine Er 0.375 Mg Caps) 4 each PO QDB [facility] Stop: 03/31/23 16:29 Last Admin: 03/05/23 07:30 Dose: Not Given Metolazone (Metolazone 5 Mg Tablet) 5 mg PO QAM [facility] Stop: 03/19/23 08:29 Last Admin: 02/25/23 09:29 Dose: 5 mg Metoprolol Succinate (Metoprolol Succ 50mg Ext Rel Tab) 50 mg PO QAM [facility] Stop: 03/15/23 08:59 Last Admin: 03/05/23 09:00 Dose: Not Given Miconazole Nitrate (Miconazole Nitrate Powder 85 Gm) 1 appln EXT TID [facility] Stop: 03/27/23 20:59 Last Admin: 03/05/23 09:00 Dose: Not Given Ondansetron HCl (Ondansetron Inj 2 Mg/Ml 2 Ml Vial) 4 mg IV ONCE PRN PRN Reason: PACU Use Only-Nausea/Vomiting Stop: 03/05/23 16:48 Rifaximin (Rifaximin 550 Mg Tablet) 550 mg PO BID [facility] Stop: 03/27/23 12:14 Last Admin: 03/05/23 09:00 Dose: Not Given Spironolactone (Spironolactone 100 Mg Tab) 100 mg PO [facility] Stop: 03/15/23 08:59 Last Admin: 02/27/23 08:39 Dose: 100 mg Tramadol HCl (Tramadol Hcl 50 Mg Tablet) 50 mg PO Q6H PRN PRN Reason: Pain Stop: 04/03/23 16:54 Last Admin: 03/05/23 01:59 Dose: 50 mg Vitamin D (Cholecalciferol 1,000 Units 25 Mcg Tab) 3,000 units PO [facility] Stop: 03/15/23 08:59 Last Admin: 03/05/23 09:00 Dose: Not Given
[2023-03-05 17:38] LABS: Hematocrit (blood only) 21.3 % (42.0-52.0); Hemoglobin 7.3 g/dl (14.0-18.0)
[2023-03-06] MEDS: LINEZOLID 600 MG/300 ML BAG IV SCH ×2 (00:47→14:05)
[2023-03-06] MEDS: LEVOTHYROXINE SODIUM 137 MCG TABLET PO SCH (06:38)
[2023-03-06] MEDS: MESALAMINE PO SCH (08:05)
[2023-03-06] MEDS: CHOLECALCIFEROL 1,000 UNITS 25 MCG TAB PO SCH (08:07)
[2023-03-06] MEDS: FAMOTIDINE 20 MG TAB PO SCH (08:08)
[2023-03-06] MEDS: FOLIC ACID 1 MG TAB PO SCH (08:08)
[2023-03-06] MEDS: MAGNESIUM OXIDE 400 MG TAB PO SCH ×2 (08:09→20:57)
[2023-03-06] MEDS: MICONAZOLE NITRATE POWDER 85 GM EXT SCH ×3 (08:10→20:58)
[2023-03-06 08:16] LABS: BUN Creatinine Ratio 15.4 (10-20); Calcium 8.4 mg/dl (8.6-10.3); Creatinine Clr Calc Pharmacy 29.2 ml/min; Est GFR (African American) 23.1 ml/min; Est GFR (Non-African American) 19.9 ml/min
[2023-03-06 08:25] LABS: INR 1.4 (0.9-1.1); Prothrombin Time 14.7 Seconds (9.0-12.0)
[2023-03-06 08:26] LABS: Hematocrit (blood only) 20.3 % (42.0-52.0); Hemoglobin 7.1 g/dl (14.0-18.0); Mean Corpuscular Hemoglobin 33.6 pg (25.0-34.0); Mean Corpuscular Volume 96.2 fL (80.0-100.0); Mean Platelet Volume 10.1 fL (9.4-12.4); Platelet Count 101 K/uL (130-400); RDW Coefficient of Variation 15.3 % (11.5-14.5); RDW Standard Deviation 53.2 fL (36.4-46.3); Red Blood Count 2.11 M/uL (4.70-6.10); White Blood Count 13.48 K/ul (4.8-10.8)
[2023-03-06] MEDS ORDERED: SODIUM CHLORIDE 0.9% 250 ML IV PRN ×2 (08:30→09:22)
--- NOTE | 2023-03-06 08:41 | Nephrology Progress Note ---
Date of Service March 06, 2023 Assessment & Plan (1) Acute kidney injury superimposed on CKD: Plan: * Progressive ANNA, oliguria while holding diuretic therapy * 03/02/23 Renal US - no hydronephrosis * Mr. Bashir understands that he is suffering from both liver failure and kidney failure. He wishes a trial of dialysis to see if his condition will allow him to return home and continue caring for his * Vascular Surgery placed R IJ THC 03/03/23. 1st run HD was 03/03/23, 2nd treatment was 03/04/23. R IJ THC exit site cauterized 03/05/23 due to bleeding at exit site * Will provide HD today and transfuse 1 unit PRBC to help correct anemia * I have spoken w/ [facility]. They can accept patient Saturday 03/10 at 11 am in case we are ready for discharge this * Patient does still make urine. Will resume Bumex 2 mg po daily to promote diuresis and limit UF on HD (2) Anemia: Plan: * Hgb 7.1 this am. Will transfuse 1 unit PRBC on HD today * Will provide GALE w/ HD today (3) Bilateral edema of lower extremity: Plan: * Combination of lymphedema, right sided CHF, and venous insufficiency * Diuretics held due to intravascular depletion and progressive renal insufficiency (4) Cirrhosis: Plan: * MELD 30. Prognosis is very poor. Palliative care appreciated. HE improved. Admission and Anticipated Discharge Date Admission Date: February 12, 2023 Subjective Mr. Bashir was seen in his hospital room this morning. There has been no further bleeding from his IJ THC site. Mr Bashir currently denies angina or dyspnea. He is anxious to receive HD and hopes to return home soon Review of Systems Constitutional: no fever Eyes: no worsening vision Ear, Nose, Mouth, Throat: no problem reported Respiratory: no cough and no dyspnea Cardiovascular: no chest pain Additional Comments: + LE swelling Gastrointestinal: no abdominal pain Genitourinary: no dysuria, no urinary hesitancy or no hematuria Musculoskeletal: no back pain Integumentary: no rash Neurologic: no falls, no dizziness and no confusion Physical Exam Constitutional: + morbidly obese Eyes: PERRL, conjunctivae normal, anicteric sclerae ENMT: external ear and nose normal, oropharynx normal Neck: trachea midline, no thyromegaly (R IJ THC site with blood soaked dressing) Respiratory: normal respiratory effort, lungs clear to auscultation Cardiovascular: Rate/Rhythm: regular rate and regular rhythm Heart Sounds: + murmur Extremities: + edema (tense pretibial edema) Gastrointestinal (Abdomen): Inspection/Auscultation: + abdomen distended Percussion/Palpation: abdomen nontender and no guarding Neurologic: awake; not confused Results & Data Vital Signs (Past 12 Hours) Vital Signs Temp Pulse Resp BP Pulse Ox O2 Del Method 03/06/23 07:36 36.6 C 87 16 125/56 L 97 Room Air 03/05/23 21:50 36.7 C 89 19 118/54 L 95 Room Air Laboratory Results Laboratory Tests 03/06/23 03/06/23 07:28 07:28 WBC 13.48 H Hgb 7.1 L Hct 20.3 L* Plt Count 101 L Sodium 125 L Potassium 5.0 Chloride 94 L Carbon Dioxide 25 BUN 48 H Creatinine 3.11 H D Glucose 125 H Calcium 8.4 L PG Care Time/CCT Total # of Minutes Spent Total Time Spent with Patient: Total time spent is greater than 50% in coordination of care (as documented) at patient's floor/unit and/or counseling patient: Coding Level of Care Code 06990 SUB INP/OBS CARE 3/50MIN Diagnoses Acute kidney injury superimposed on CKD N17.9; N18.9 Anemia D64.9 Anemia type: other cause Bilateral edema of lower extremity R60.0 Cirrhosis K74.60 (2) Anemia Anemia type: other cause
[2023-03-06] MEDS ORDERED: EPOETIN ALFA 10,000 UNITS/ML VIAL IV ONE (09:19)
[2023-03-06] MEDS ORDERED: SODIUM CHLORIDE 0.9% 1000ML 1,000 ML IV PRN (09:19)
[2023-03-06] MEDS: LACTULOSE SYRUP 30 GM/45 ML UDP PO SCH ×3 (09:52→20:56)
--- NOTE | 2023-03-06 12:47 | Infectious Disease Progress Nt ---
Date of Service March 06, 2023 24 hours: R IJ THC replaced 03/05/23with exploration Cultures in lab WBC has improved Afebrile Assessment & Plan (1) Lethargy: Plan: #Leukocytosis #UTI #Penicillin Allergy (tolerated Ceftriaxone, Zosyn) #Acute on CKD #Cirrhosis MICRO 02/26 UCX E. faecium 02/15 BCX NG ABX Linezolid 02/28 Clindamycin 03/05 - 67-year-old M with h/o Afib s/p ablation, stage 3A CKD, venous insufficiency, CML, appendiceal cancer s/p partial colonic resection as well as removal of numerous lymph nodes, Ulcerative colitis, PAD, GERD, hypothyroidism, and CML S/P chemo/radiation with resultant lymphedema, recently admitted for 01/22-01/28 for RLE cellulitis, 01/22 Blood cultures 11/27 bottles are Achromobacter (S: Zosyn), BCID is negative, treated with IV Zosyn, 2 weeks from first negative blood culture through 02/07. Patient was admitted on 02/12/23 with c/o SOB and LE swelling. He underwent PermCath placement for dialysis access on 03/03 but he continued to have oozing around the catheter and his hemoglobin dropped from 10.5 to 7. He returned to OR. ID consulted for antibiotic management. On admission, he was HD stable. WBC normal.Chest xray was read "1. Faint bibasilar airspace opacities which may represent atelectasis, pneumonia, and/or aspiration. He was diuresed. His hospital course focused on diuresis due to overload and he was diuresed. Unfortunately his kidney function worsened. Ultimately decision by nephrology to pursue dialysis. He was noted to have increasing lethargy. Source was not clear. Thought to be secondary to hepatic encephalopathy from cirrhosis. Leukocytosis worsening. 02/15 Blood cultures no growth. CXR on 02/25 no acute infectious etiology. Renal ultrasound no hydronephrosis. UA/Ucx checked. Ceftriaxone was initiated on 02/26 but changed to Zosyn, given results of Ucx, changed to Linezolid once it was finalized to E. faecium (S Linezolid, Vanco, Daptomycin) Vascular Surgery placed R IJ THC 03/03/23. 1st run HD was 03/03/23, 2nd treatment was 03/04/23. R IJ THC replaced 03/05/23 due to bleeding at exit site with wound exploration. ID consulted for leukocytosis. Discussion: Patient Renal/Liver failure with lethargy (improved) and ongoing leukocytosis, He is on Day 6 of Linezolid for enterococcal UTI. He is also have current oozing at site of HD catheter, currently in OR. FU cultures (2) UTI (urinary tract infection): (3) Acute blood loss anemia: (4) Cirrhosis: Plan -OR results/wound -F/U Blood cultures from 03/05 -C/W linezolid for now Thank you I spoke with Primary regarding my recommendations Angely Gonzales MD [facility] Ad[facility] and Anticipated Discharge Date Admission Date: February 12, 2023 Subjective This patient recommendation is based on a telemedicine consult request which was completed asynchronously through chart review and information provided by the primary physician. The patient was not seen or examined today. The evaluation is consultative in nature and all patient care and treatment decisions can either be accepted or rejected by the patient's primary hospital-based treating physician using their own independent medical judgment for their patient. Time Spent Reviewing Chart: 21 - 30 minutes Results & Data Vital Signs (Past 12 Hours) Vital Signs Temp Pulse Pulse Pulse Resp BP BP 03/06/23 12:00 96 H 123/40 L 03/06/23 11:45 36.7 C 97 H 18 110/40 L 03/06/23 11:30 93 H 120/44 L 03/06/23 11:30 36.6 C 93 H 18 120/44 L 03/06/23 11:17 36.6 C 93 H 18 110/53 L 03/06/23 11:11 36.5 C 71 18 115/59 L 03/06/23 11:00 90 113/41 L 03/06/23 10:30 94 H 100/37 L 03/06/23 10:00 91 H 124/51 L 03/06/23 09:45 36.6 C 92 H 03/06/23 07:36 36.6 C 87 16 125/56 L Pulse Ox O2 Del Method 03/06/23 12:00 03/06/23 11:45 03/06/23 11:30 03/06/23 11:30 03/06/23 11:17 03/06/23 11:11 98 03/06/23 11:00 03/06/23 10:30 03/06/23 10:00 03/06/23 09:45 03/06/23 07:36 97 Room Air Laboratory Results Laboratory Results - last 48 hr 03/04/23 03/04/23 03/04/23 15:14 15:14 19:31 WBC RBC Hgb 8.6 L 8.5 L Hct 25.3 L 24.5 L MCV MCH MCHC RDW Std Deviation RDW Coeff of Howie Plt Count MPV PT 14.8 H INR 1.4 H Sodium Potassium Chloride Carbon Dioxide Anion Gap BUN Creatinine Est Cr Clr Drug Dosing Est GFR ( Amer) Est GFR (Non-Af Amer) BUN/Creatinine Ratio Glucose Calcium Total Bilirubin Direct Bilirubin AST ALT Alkaline Phosphatase Total Protein Albumin Blood Type Blood Type Recheck Antibody Screen Crossmatch 03/05/23 03/05/23 03/05/23 07:54 07:54 07:54 WBC 17.30 H RBC 2.04 L Hgb 7.0 L Hct 20.2 L* MCV 99.0 MCH 34.3 H MCHC 34.7 RDW Std Deviation 53.1 H RDW Coeff of Howie 14.7 H Plt Count 99 L MPV 10.7 PT 15.1 H INR 1.4 H Sodium 126 L Potassium 4.7 Chloride 95 L Carbon Dioxide 26 Anion Gap 5 BUN 44 H D Creatinine 3.70 H D Est Cr Clr Drug Dosing 24.5 Est GFR ( Amer) 18.7 Est GFR (Non-Af Amer) 16.2 BUN/Creatinine Ratio 11.9 Glucose 122 H Calcium 8.0 L Total Bilirubin 2.9 H Direct Bilirubin 0.9 H AST 22 ALT 12 Alkaline Phosphatase 39 Total Protein 5.5 L D Albumin 2.7 L Blood Type Blood Type Recheck Antibody Screen Crossmatch 03/05/23 03/05/23 03/05/23 08:34 08:42 17:16 WBC RBC Hgb 7.3 L Hct 21.3 L MCV MCH MCHC RDW Std Deviation RDW Coeff of Howie Plt Count MPV PT INR Sodium Potassium Chloride Carbon Dioxide Anion Gap BUN Creatinine Est Cr Clr Drug Dosing Est GFR ( Amer) Est GFR (Non-Af Amer) BUN/Creatinine Ratio Glucose Calcium Total Bilirubin Direct Bilirubin AST ALT Alkaline Phosphatase Total Protein Albumin Blood Type A Negative Blood Type Recheck A Negative Antibody Screen NEGATIVE Crossmatch See Detail 03/06/23 03/06/23 03/06/23 07:28 07:28 07:28 WBC 13.48 H RBC 2.11 L Hgb 7.1 L Hct 20.3 L* MCV 96.2 MCH 33.6 MCHC 35.0 RDW Std Deviation 53.2 H RDW Coeff of Howie 15.3 H Plt Count 101 L MPV 10.1 PT 14.7 H INR 1.4 H Sodium 125 L Potassium 5.0 Chloride 94 L Carbon Dioxide 25 Anion Gap 6 BUN 48 H Creatinine 3.11 H D Est Cr Clr Drug Dosing 29.2 Est GFR ( Amer) 23.1 Est GFR (Non-Af Amer) 19.9 BUN/Creatinine Ratio 15.4 Glucose 125 H Calcium 8.4 L Total Bilirubin Direct Bilirubin AST ALT Alkaline Phosphatase Total Protein Albumin Blood Type Blood Type Recheck Antibody Screen Crossmatch Microbiology 02/26/23 01:00 Urine,Clean Catch Urine Culture - Final Enterococcus faecium 02/15/23 14:30 Blood Aerobic Blood Culture - Final No growth in Aerobic bottle after 5 days. 02/15/23 14:30 Blood Anaerobic Blood Culture - Final No growth in Anaerobic bottle after 5 days. 02/15/23 14:42 Blood Aerobic Blood Culture - Final No growth in Aerobic bottle after 5 days. 02/15/23 14:42 Blood Anaerobic Blood Culture - Final No growth in Anaerobic bottle after 5 days. Medications Administered Current Inpatient Medications Allopurinol (Allopurinol 300 Mg Tab) 300 mg PO QDL [facility] Stop: 03/15/23 11:29 Last Admin: 03/05/23 12:19 Dose: Not Given Bumetanide (Bumetanide 1 Mg Tab) 2 mg PO QAM [facility] Stop: 04/05/23 10:14 Famotidine (Famotidine 20 Mg Tab) 20 mg PO DAILY [facility] Stop: 03/14/23 18:59 Last Admin: 03/06/23 08:08 Dose: 20 mg Folic Acid (Folic Acid 1 Mg Tab) 1 mg PO QAM [facility] Stop: 03/15/23 08:59 Last Admin: 03/06/23 08:08 Dose: 1 mg Heparin Sodium (Porcine) (Heparin Sod 5,000 Unit/0.5 Ml Vial) 7,500 units SQ Q8 [facility] Stop: 03/14/23 21:59 Last Admin: 03/03/23 20:44 Dose: Not Given Hydroxyzine HCl (Hydroxyzine Hcl 25 Mg Tab) 25 mg PO DAILY PRN PRN Reason: Anxiety Stop: 03/20/23 19:32 Linezolid (Zyvox) 600 mg in 300 mls @ 200 mls/hr IV Q12H [facility] Stop: 03/07/23 02:14 Last Infusion: 03/06/23 02:52 Dose: Infused Sodium Chloride (Nss) 250 mls @ 15 mls/hr IV .[id number] PRN PRN Reason: For Transfusion Duration Stop: 03/06/23 18:30 Sodium Chloride (Nss 1000ml) 1,000 mls @ 0 mls/hr IV .Q0M PRN PRN Reason: For Hemodialysis Use ONLY Stop: 03/06/23 15:18 Sodium Chloride (Nss) 250 mls @ 15 mls/hr IV .[id number] PRN PRN Reason: For Transfusion Duration Stop: 03/06/23 19:22 Lactulose (Lactulose Syrup 30 Gm/45 Ml Udp) 30 gm PO TID [facility] Stop: 04/01/23 08:59 Last Admin: 03/06/23 09:52 Dose: Not Given Levothyroxine Sodium (Levothyroxine Sodium 137 Mcg Tablet) 137 mcg PO DAILYBB [facility] Stop: 03/18/23 06:29 Last Admin: 03/06/23 06:38 Dose: 137 mcg Magnesium Oxide (Magnesium Oxide 400 Mg Tab) 400 mg PO BID [facility] Stop: 03/14/23 20:59 Last Admin: 03/06/23 08:09 Dose: 400 mg Mesalamine (Mesalamine Er 0.375 Mg Caps) 4 each PO QDB [facility] Stop: 03/31/23 16:29 Last Admin: 03/06/23 08:05 Dose: 4 each Metolazone (Metolazone 5 Mg Tablet) 5 mg PO QAM [facility] Stop: 03/19/23 08:29 Last Admin: 02/25/23 09:29 Dose: 5 mg Metoprolol Succinate (Metoprolol Succ 50mg Ext Rel Tab) 50 mg PO QAM [facility] Stop: 03/15/23 08:59 Last Admin: 03/05/23 09:00 Dose: Not Given Miconazole Nitrate (Miconazole Nitrate Powder 85 Gm) 1 appln EXT TID [facility] Stop: 03/27/23 20:59 Last Admin: 03/06/23 08:10 Dose: 1 appln Rifaximin (Rifaximin 550 Mg Tablet) 550 mg PO BID [facility] Stop: 03/27/23 12:14 Last Admin: 03/05/23 20:20 Dose: 550 mg Spironolactone (Spironolactone 100 Mg Tab) 100 mg PO [facility] Stop: 03/15/23 08:59 Last Admin: 02/27/23 08:39 Dose: 100 mg Tramadol HCl (Tramadol Hcl 50 Mg Tablet) 50 mg PO Q6H PRN PRN Reason: Pain Stop: 04/03/23 16:54 Last Admin: 03/05/23 01:59 Dose: 50 mg Vitamin D (Cholecalciferol 1,000 Units 25 Mcg Tab) 3,000 units PO [facility] Stop: 03/15/23 08:59 Last Admin: 03/06/23 08:07 Dose: 3,000 units
[2023-03-06] MEDS: allopurinoL 300 MG TAB PO SCH (14:01)
[2023-03-06] MEDS: rifAXIMin 550 MG TABLET PO SCH ×2 (14:02→20:57)
[2023-03-06] MEDS: METOPROLOL SUCC 50MG EXT REL TAB PO SCH (14:03)
--- NOTE | 2023-03-06 14:47 | Hospitalist Progress Note ---
Date of Service March 06, 2023 Assessment & Plan (1) Volume overload: Plan: Multifactorial -- cirrhosis, progressive CKD Holding further oral/IV diuretics for progressive renal decline Decreased fluid restriction to 1L/daily - Na 125 , BUN 48, Cr 3.11 today. Renal US revealed no definite hydronephrosis Patient had 3rd dialysis today, Had 1 unit transfused with dialysis today for a Hgb 7.1 Will repeat labs in the AM (2) Acute kidney injury superimposed on CKD: Plan: Acute/unstable - volume overload combination cirrhosis/progressive CKD/CHF, noncompliacne w/ meds at home over past year caring for his . Baseline [employer] prior was 1.5-1.6, progressive decline over past year Nephrology following 1L fluid restriction Renal US no definite hydronephrosis Nephrology resumed Bumex 2mg daily to promote diuresis and limit UF on HD Monitor labs in AM (3) Lethargy: Plan: Acute/unstable --> IMPROVED/stable Increased lethargy/hepatic encephalopathy 02/25, ammonia improving on lactulose Rifaximin initiated BID 02/25 - will need new rx at d/c CXR w/o acute process CO2 elevated on labs 02/25, obtained VBG c/w hypercapnia Overnight pulse ox to determine nocturnal hypoxia - schedule 2L HS for now, will need outpt sleep study UA/culture obtained, finalized enterococcus - placed on Linezolid to avoid vanc/dapto given his kidney function PTH low,appropriate given hypercalcemia. Per nephro, felt elevated Ca driven by diuretic therapy. Continue current course See UTI below Palliative consulted, DNR but wanting to undergo treatment as offered. Ultimate goal is rehab/home for patient, however not had PT/OT evals prior -- rehab rec, but will plan for home w/ HH when able (4) UTI (urinary tract infection): Plan: new since admit, prior cx negative Cx as above, switched to Linezolid to complete course for UTI on 02/28 Reviewed CBC today, Hgb dropped to 7 secondary to bleeding at [facility] site Consulted ID regarding antibiotic (Linezolid and kidney disease and changes on C BC) Today WBC trending back down and Plt 101 Per ID will continue the Linezolid for now and will check blood cultures Blood cultures pending (5) Cirrhosis: Plan: Acute on chronic/unstable - high risk Known hx in chart, however patient denied knowing this. Do consume beer, no excessive heavy use reported (educated to stop) --? etoh vs [place] given obesity vs from meds for chemo for his CML GI consulted -- outpt f/u recs, serological workup pending outpt f/u Hepatic encephalopathy 02/21 w/ elevated ammonia and stated lactulose/titrated up Repeat ammonias improved Added Xifaxan 550mg BID 02/25, continue at d/c Limited US 02/24 w/o ascites seen MELD score elevated poor prognosis. >50% 3 month mortality discussed w/ patient. Prior Palliative consulted, made DNR GI/Hepatology follow up q 6 months with U/S and AFP AFP 2.2 on 02/23/23 limited U/S 02/24/23 Monitor MELD labs - will get labs in AM Nephrology as above to assist w/ volume management (6) Anemia: Plan: ABLA secondary to continued bleeding from permcath Had transfusion and was taken back to OR and found a bleeder in muscle wall - cauterized Hgb 7.1 today and transfused 1 unit during dialysis Will repeat CBC in AM (hx CML following w/ CCP -- in remission per discussion w/ Dr Lima, but she will order BCRABL PCR for eval Checked iron panel, Venofer x4 doses this admission per nephrology - B12 wnl, Folate low prior and continues on supplementation (improved from last month, not on home med list but pt states had been taking) - Fecal occult NEGATIVE) (7) S/P ablation of atrial fibrillation: Plan: Stable and chronic - Not currently on anticoagulation, ablation was remote while living in [place] - EKG on admit NSR, L anterior fascicular block, RBBB - Continue metoprolol succinate 50mg daily with hold parameters - clarified was previously on AC in September d/t blood clot - Stopped d/t issues of GI bleeding reported (also has diarrhea baseline w/ ? ulcerative colitis) - Prior to ablation was only on aspirin but patient reported some bleeding w/ such - continued discussions for at least ASA at d/c pending risk/benefit (8) Vitamin D deficiency: Plan: Acute/unstable Vit D low, replacement ordered PTh checked given hypercalcemia, appropriately low - continue current course (9) Folate deficiency: Plan: Acute/unstable - prior low dec 2022, repeat ordered and replacement (10) Lymphedema: Plan: Chronic/stable Wound RN consulted, appreciate assistance - amlactin ordered Monitor for any infection, just completed course Zosyn for LE cellulitis legs less heavy, more mobility for patient will need outpt f/u Also w hx CML, to be monitored by CCP - appears previously on Sprycel but patient d/c due to weight gain/edema. Was to start Gleevec per most recent note but doesn't appear this ever occurred. - reached out to heme/onc, Dr Lima for discussion given complex case above - was stopped meds ~6 months ago, in remission. She will check lab for further info Plan continued inpatient stay 3rd dialysis treatment today with 1 unit transfusion Out patient dialysis already scheduled for Friday03/10/23 Admission and Anticipated Discharge Date Admission Date: February 12, 2023 Subjective Mr. Bashir was seen in his hospital room this afternoon after dialysis. There has been no further bleeding from his permcath site. Patient states he is tired but otherwise feels well. Patient is anxious to return home. CM is working on getting H/H and services set up for patient to return home this . He has outpatient dialysis set up for Friday. Review of Systems Review of Systems: Patient denies any chest pain, SOB, nausea abdominal pain, constipation. Still with lower extremity swelling/lymphedema. + fatigue Physical Exam Constitutional: + morbidly obese and + lethargic; not in distress Neck: trachea midline, no thyromegaly Respiratory: normal respiratory effort, lungs clear to auscultation Cardiovascular: Rate/Rhythm: regular rate Heart Sounds: + murmur Extremities: + edema Gastrointestinal (Abdomen): normal bowel sounds, soft, nontender, no hepatosplenomegaly Psychiatric: A+Ox3, euthymic affect Lymphatic: + lymphedema Results & Data Results & Data Vital Signs (Past 12 Hours) Vital Signs Temp Pulse Pulse Pulse Resp BP BP 03/06/23 13:52 36.6 C 98 H 03/06/23 13:30 99 H 115/38 L 03/06/23 13:00 101 H 107/40 L 03/06/23 12:30 97 H 111/45 L 03/06/23 12:00 96 H 123/40 L 03/06/23 11:45 36.7 C 97 H 18 110/40 L 03/06/23 11:30 93 H 120/44 L 03/06/23 11:30 36.6 C 93 H 18 120/44 L 03/06/23 11:17 36.6 C 93 H 18 110/53 L 03/06/23 11:11 36.5 C 71 18 115/59 L 03/06/23 11:00 90 113/41 L 03/06/23 10:30 94 H 100/37 L 03/06/23 10:00 91 H 124/51 L 03/06/23 09:45 36.6 C 92 H 03/06/23 07:36 36.6 C 87 16 125/56 L BP Pulse Ox O2 Del Method 03/06/23 13:52 116/42 L 03/06/23 13:30 03/06/23 13:00 03/06/23 12:30 03/06/23 12:00 03/06/23 11:45 03/06/23 11:30 03/06/23 11:30 03/06/23 11:17 03/06/23 11:11 98 03/06/23 11:00 03/06/23 10:30 03/06/23 10:00 03/06/23 09:45 03/06/23 07:36 97 Room Air Laboratory Results Abnormal lab results 03/05/23 03/05/23 03/06/23 Range/Units 08:34 17:16 07:28 WBC 13.48 H (4.8-10.8) K/ul RBC 2.11 L (4.70-6.10) M/uL Hgb 7.3 L 7.1 L (14.0-18.0) g/dl Hct 21.3 L 20.3 L* (42.0-52.0) % RDW Std Deviation 53.2 H (36.4-46.3) fL RDW Coeff of Howie 15.3 H (11.5-14.5) % Plt Count 101 L (130-400) K/uL PT (9.0-12.0) Seconds INR (0.9-1.1) Sodium (136-145) mmol/L Chloride (98-107) mmol/L BUN (6-23) mg/dl Creatinine (0.6-1.4) mg/dl Glucose (70-99(Fasting)) mg/dl Calcium (8.6-10.3) mg/dl Crossmatch See Detail 03/06/23 03/06/23 Range/Units 07:28 07:28 WBC (4.8-10.8) K/ul RBC (4.70-6.10) M/uL Hgb (14.0-18.0) g/dl Hct (42.0-52.0) % RDW Std Deviation (36.4-46.3) fL RDW Coeff of Howie (11.5-14.5) % Plt Count (130-400) K/uL PT 14.7 H (9.0-12.0) Seconds INR 1.4 H (0.9-1.1) Sodium 125 L (136-145) mmol/L Chloride 94 L (98-107) mmol/L BUN 48 H (6-23) mg/dl Creatinine 3.11 H D (0.6-1.4) mg/dl Glucose 125 H (70-99(Fasting)) mg/dl Calcium 8.4 L (8.6-10.3) mg/dl Crossmatch PG Care Time/CCT Total # of Minutes Spent Total Time Spent with Patient: Total time spent is greater than 50% in coordination of care (as documented) at patient's floor/unit and/or counseling patient: Coding Level of Care Code 62756 SUB INP/OBS CARE 2/35MIN Diagnoses Volume overload E87.70 Acute kidney injury superimposed on CKD N17.9; N18.9 Lethargy R53.83 UTI (urinary tract infection) N39.0 Cirrhosis K74.60 Anemia D64.9 Anemia type: other cause S/P ablation of atrial fibrillation Z98.890; Z86.79 Vitamin D deficiency E55.9 Folate deficiency E53.8 Lymphedema I89.0 (6) Anemia Anemia type: other cause
[2023-03-06] MEDS: BUMETANIDE 1 MG TAB PO SCH (16:20)
[2023-03-07] MEDS: LINEZOLID 600 MG/300 ML BAG IV SCH ×3 (01:35→23:30)
[2023-03-07] MEDS: LEVOTHYROXINE SODIUM 137 MCG TABLET PO SCH (06:00)
[2023-03-07] MEDS: MESALAMINE PO SCH (08:14)
[2023-03-07] MEDS: BUMETANIDE 1 MG TAB PO SCH (08:14)
[2023-03-07] MEDS: FAMOTIDINE 20 MG TAB PO SCH (08:15)
[2023-03-07] MEDS: CHOLECALCIFEROL 1,000 UNITS 25 MCG TAB PO SCH (08:15)
[2023-03-07] MEDS: FOLIC ACID 1 MG TAB PO SCH (08:16)
[2023-03-07] MEDS: LACTULOSE SYRUP 30 GM/45 ML UDP PO SCH ×3 (08:16→20:48)
[2023-03-07] MEDS: METOPROLOL SUCC 50MG EXT REL TAB PO SCH (08:17)
[2023-03-07] MEDS: MAGNESIUM OXIDE 400 MG TAB PO SCH ×2 (08:17→20:49)
[2023-03-07] MEDS: MICONAZOLE NITRATE POWDER 85 GM EXT SCH ×3 (08:18→20:49)
[2023-03-07] MEDS: rifAXIMin 550 MG TABLET PO SCH ×2 (08:19→20:50)
--- NOTE | 2023-03-07 09:01 | Nephrology Progress Note ---
Date of Service March 07, 2023 Assessment & Plan (1) Acute kidney injury superimposed on CKD: Plan: * Progressive ANNA while on diuretics. Developed oliguria and worsening kidney function despite holding diuretic therapy * 03/02/23 Renal US - no hydronephrosis * Mr. Bashir understands that he is suffering from both liver failure and kidney failure. He requested a trial of dialysis to see if his condition will allow him to return home and continue caring for his * Vascular Surgery placed R IJ THC 03/03/23. 1st run HD was 03/03/23, 2nd treatment was 03/04/23. R IJ THC exit site cauterized 03/05/23 due to bleeding at exit site * [facility] can accept patient Saturday 03/10 at 11 am if patient is discharged this * Patient does still make urine. Will resume Bumex 2 mg po daily to promote diuresis and limit UF on HD * Awaiting AM labs (2) Anemia: Plan: * Hgb 7.1 yesterday. 1 unit PRBC transfused during HD yesterday * GALE provided w/ dialysis treatments (3) Bilateral edema of lower extremity: Plan: * Combination of lymphedema, right sided CHF, and venous insufficiency (4) Cirrhosis: Plan: * MELD 30. Prognosis is very poor. Palliative care appreciated. HE improved. Admission and Anticipated Discharge Date Admission Date: February 12, 2023 Subjective Mr. Bashir was evaluated in his hospital room this morning. He declined his am blood draw because he was eating breakfast. Mr. Bashir notes that his LE swelling is improved. He currently denies angina, dyspnea or uremic symptoms Review of Systems Constitutional: no fever Eyes: no worsening vision Ear, Nose, Mouth, Throat: no problem reported Respiratory: no cough and no dyspnea Cardiovascular: no chest pain Additional Comments: + LE swelling Gastrointestinal: no abdominal pain Genitourinary: no dysuria, no urinary hesitancy or no hematuria Musculoskeletal: no back pain Integumentary: no rash Neurologic: no falls, no dizziness and no confusion Physical Exam Constitutional: + morbidly obese Eyes: PERRL, conjunctivae normal, anicteric sclerae ENMT: external ear and nose normal, oropharynx normal Neck: trachea midline, no thyromegaly (R IJ THC site with blood soaked dressing) Respiratory: normal respiratory effort, lungs clear to auscultation Cardiovascular: Rate/Rhythm: regular rate and regular rhythm Heart Sounds: + murmur Extremities: + edema (tense pretibial edema) Gastrointestinal (Abdomen): Inspection/Auscultation: + abdomen distended Percussion/Palpation: abdomen nontender and no guarding Neurologic: awake; not confused Results & Data Vital Signs (Past 12 Hours) Vital Signs Temp Pulse Resp BP Pulse Ox O2 Del Method 03/07/23 08:11 36.4 C 72 18 109/56 L 100 Room Air 03/06/23 22:56 36.8 C 81 18 107/60 97 Room Air PG Care Time/CCT Total # of Minutes Spent Total Time Spent with Patient: Total time spent is greater than 50% in coordination of care (as documented) at patient's floor/unit and/or counseling patient: Coding Level of Care Code 11395 SUB INP/OBS CARE 3/50MIN Diagnoses Acute kidney injury superimposed on CKD N17.9; N18.9 Anemia D64.9 Anemia type: other cause Bilateral edema of lower extremity R60.0 Cirrhosis K74.60 (2) Anemia Anemia type: other cause
--- NOTE | 2023-03-07 09:53 | Surgery Progress Note ---
Date of Service March 07, 2023 Assessment & Plan (1) Acute kidney injury superimposed on CKD: Plan: Pt underwent exploration and control of bleeding from permcath site. No further bleeding noted. Will see in office in 2 weeks to reeval wound. Please call if needed. Admission and Anticipated Discharge Date Admission Date: February 12, 2023 Subjective 68yo m POD #2 after exploration and control of bleeding from R chest wall permcath. Pt states no further bleeding. Hgb has stabilized. Using permcath for HD. No new complaints. Review of Systems Review of Systems: All systems reviewed & are unremarkable except as noted in HPI & below Physical Exam Constitutional: WD/WN, vitals as above + obese Chest (Breasts): Additional Comments: R IJ permcath with local mild swelling, moderate ecchymosis. NO active bleeding. Results & Data Vital Signs (Past 12 Hours) Vital Signs Temp Pulse Resp BP Pulse Ox O2 Del Method 03/07/23 08:11 36.4 C 72 18 109/56 L 100 Room Air 03/06/23 22:56 36.8 C 81 18 107/60 97 Room Air
[2023-03-07 11:07] LABS: Hematocrit (blood only) 23.2 % (42.0-52.0); Hemoglobin 7.9 g/dl (14.0-18.0); Mean Corpuscular Hemoglobin 33.3 pg (25.0-34.0); Mean Corpuscular Hgb Conc 34.1 g/dL (32.0-36.0); Mean Corpuscular Volume 97.9 fL (80.0-100.0); Mean Platelet Volume 9.7 fL (9.4-12.4); Platelet Count 100 K/uL (130-400); RDW Coefficient of Variation 16.8 % (11.5-14.5); RDW Standard Deviation 59.6 fL (36.4-46.3); Red Blood Count 2.37 M/uL (4.70-6.10); White Blood Count 10.53 K/ul (4.8-10.8)
--- NOTE | 2023-03-07 11:18 | Infectious Disease Progress Nt ---
Date of Service March 07, 2023 Assessment & Plan (1) Lethargy: Plan: #Leukocytosis, resolved #UTI, treated #Penicillin Allergy (tolerated Ceftriaxone, Zosyn) #Acute on CKD #Cirrhosis MICRO 03/05 Blood culture No Growth 02/26 UCX E. faecium 02/15 BCX NG ABX Linezolid 02/28 Clindamycin 03/05 - 67-year-old M with h/o Afib s/p ablation, stage 3A CKD, venous insufficiency, CML, appendiceal cancer s/p partial colonic resection as well as removal of numerous lymph nodes, Ulcerative colitis, PAD, GERD, hypothyroidism, and CML S/P chemo/radiation with resultant lymphedema, recently admitted for 01/22-01/28 for RLE cellulitis, 01/22 Blood cultures 11/27 bottles are Achromobacter (S: Zosyn), BCID is negative, treated with IV Zosyn, 2 weeks from first negative blood culture through 02/07. Patient was admitted on 02/12/23 with c/o SOB and LE swelling. He underwent PermCath placement for dialysis access on 03/03 but he continued to have oozing around the catheter and his hemoglobin dropped from 10.5 to 7. He returned to OR. ID consulted for antibiotic management. On admission, he was HD stable. WBC normal.Chest xray was read "1. Faint bibasilar airspace opacities which may represent atelectasis, pneumonia, and/or aspiration. He was diuresed. His hospital course focused on diuresis due to overload and he was diuresed. Unfortunately his kidney function worsened. Ultimately decision by nephrology to pursue dialysis. He was noted to have increasing lethargy. Source was not clear. Thought to be secondary to hepatic encephalopathy from cirrhosis. Leukocytosis worsening. 02/15 Blood cultures no growth. CXR on 02/25 no acute infectious etiology. Renal ultrasound no hydr onephrosis. UA/Ucx checked. Ceftriaxone was initiated on 02/26 but changed to Zosyn, given results of Ucx, changed to Linezolid once it was finalized to E. faecium (S Linezolid, Vanco, Daptomycin) Vascular Surgery placed R IJ THC 03/03/23. 1st run HD was 03/03/23, 2nd treatment was 03/04/23. R IJ THC replaced 03/05/23 due to bleeding at exit site with wound exploration. ID consulted for leukocytosis. Discussion: Patient Renal/Liver failure with lethargy (improved) and ongoing leukocytosis, He is on Day 7 of Linezolid for enterococcal UTI. He is also have current oozing at site of HD catheter, which has been replaced on 03/05. At this time cultures from 03/05 are no Growth (near 48 hours) (2) UTI (urinary tract infection): (3) Acute blood loss anemia: (4) Cirrhosis: Plan -03/05 blood cultures are No Growth to date -I dont see or cultures or cath tip cultures -C/W linezolid for now, if there is no micro growth by 03/09 would plan to dis continue linezolid then, ID will sign off at this time but please page OTW with questions. Thank you I spoke with Primary regarding my recommendations Angely Gonzales MD Infectious Diseases [facility] IDConnect Admission and Anticipated Discharge Date Admission Date: February 12, 2023 Subjective This patient recommendation is based on a telemedicine consult request which was completed asynchronously through chart review and information provided by the primary physician. The patient was not seen or examined today. The evaluation is consultative in nature and all patient care and treatment decisions can either be accepted or rejected by the patient's primary hospital-based treating physician using their own independent medical judgment for their patient. Time Spent Reviewing Chart: 21 - 30 minutes 24 hours: No acute events WBC normalized Results & Data Vital Signs (Past 12 Hours) Vital Signs Temp Pulse Resp BP Pulse Ox O2 Del Method 03/07/23 08:11 36.4 C 72 18 109/56 L 100 Room Air Laboratory Results Laboratory Results - last 48 hr 02/27/23 03/05/23 03/05/23 10:17 08:34 17:16 WBC RBC Hgb 7.3 L Hct 21.3 L MCV MCH MCHC RDW Std Deviation RDW Coeff of Howie Plt Count MPV PT INR Sodium Potassium Chloride Carbon Dioxide Anion Gap BUN Creatinine Est Cr Clr Drug Dosing Est GFR ( Amer) Est GFR (Non-Af Amer) BUN/Creatinine Ratio Glucose Calcium Total Bilirubin Direct Bilirubin AST ALT Alkaline Phosphatase Ammonia Total Protein Albumin BCR/abl See Comment Blood Type A Negative Antibody Screen NEGATIVE Crossmatch See Detail 03/06/23 03/06/23 03/06/23 07:28 07:28 07:28 WBC 13.48 H RBC 2.11 L Hgb 7.1 L Hct 20.3 L* MCV 96.2 MCH 33.6 MCHC 35.0 RDW Std Deviation 53.2 H RDW Coeff of Howie 15.3 H Plt Count 101 L MPV 10.1 PT 14.7 H INR 1.4 H Sodium 125 L Potassium 5.0 Chloride 94 L Carbon Dioxide 25 Anion Gap 6 BUN 48 H Creatinine 3.11 H D Est Cr Clr Drug Dosing 29.2 Est GFR ( Amer) 23.1 Est GFR (Non-Af Amer) 19.9 BUN/Creatinine Ratio 15.4 Glucose 125 H Calcium 8.4 L Total Bilirubin Direct Bilirubin AST ALT Alkaline Phosphatase Ammonia Total Protein Albumin BCR/abl Blood Type Antibody Screen Crossmatch 03/07/23 03/07/23 03/07/23 10:02 10:02 10:02 WBC 10.53 RBC 2.37 L Hgb 7.9 L Hct 23.2 L MCV 97.9 MCH 33.3 MCHC 34.1 RDW Std Deviation 59.6 H RDW Coeff of Howie 16.8 H Plt Count 100 L MPV 9.7 PT INR Sodium 129 L Potassium 4.0 Chloride 97 L Carbon Dioxide 24 Anion Gap 8 BUN 32 H Creatinine 2.43 H D Est Cr Clr Drug Dosing 36.9 Est GFR ( Amer) 30.9 Est GFR (Non-Af Amer) 26.7 BUN/Creatinine Ratio 13.2 Glucose 149 H Calcium 8.6 Total Bilirubin 3.9 H Direct Bilirubin 1.1 H AST 21 ALT 13 Alkaline Phosphatase 51 Ammonia 50.0 Total Protein 6.3 Albumin 3.0 L BCR/abl Blood Type Antibody Screen Crossmatch Microbiology 03/05/23 13:59 Blood Aerobic Blood Culture - Preliminary No growth in Aerobic bottle after 24 hours. 03/05/23 13:59 Blood Anaerobic Blood Culture - Preliminary No growth in Anaerobic bottle after 24 hours. 03/05/23 14:02 Blood Aerobic Blood Culture - Preliminary No growth in Aerobic bottle after 24 hours. 03/05/23 14:02 Blood Anaerobic Blood Culture - Preliminary No growth in Anaerobic bottle after 24 hours. 02/26/23 01:00 Urine,Clean Catch Urine Culture - Final Enterococcus faecium 02/15/23 14:30 Blood Aerobic Blood Culture - Final No growth in Aerobic bottle after 5 days. 02/15/23 14:30 Blood Anaerobic Blood Culture - Final No growth in Anaerobic bottle after 5 days. 02/15/23 14:42 Blood Aerobic Blood Culture - Final No growth in Aerobic bottle after 5 days. 02/15/23 14:42 Blood Anaerobic Blood Culture - Final No growth in Anaerobic bottle after 5 days.
[2023-03-07 11:22] LABS: BUN Creatinine Ratio 13.2 (10-20); Bilirubin Direct 1.1 mg/dl (0-0.2); Bilirubin,Total 3.9 mg/dl (0.2-1.0); Calcium 8.6 mg/dl (8.6-10.3); Creatinine Clr Calc Pharmacy 36.9 ml/min; Est GFR (African American) 30.9 ml/min; Est GFR (Non-African American) 26.7 ml/min; Total Protein 6.3 gm/dl (6.0-8.3)
[2023-03-07] MEDS ORDERED: SODIUM CHLORIDE 0.9% 250 ML IV PRN ×3 (11:26→12:15)
--- NOTE | 2023-03-07 11:39 | Hospitalist Progress Note ---
Date of Service March 07, 2023 Assessment & Plan (1) Volume overload: Plan: Multifactorial - cirrhosis, progressive CKD Continue fluid restriction to 1L/daily - Na 129 , BUN 32, Cr 2.4 today. Renal US revealed no definite hydronephrosis Patient had 4th dialysis today, Had 1 unit transfused with dialysis today for a Hgb 7.9 Had 2 Liters taken off today Will repeat labs in the AM (2) Acute kidney injury superimposed on CKD: Plan: Acute/unstable - volume overload combination cirrhosis/progressive CKD/CHF, noncompliacne w/ meds at home over past year caring for his . Baseline [employer]mer prior was 1.5-1.6, progressive decline over past year Nephrology following 1L fluid restriction Renal US no definite hydronephrosis Nephrology resumed Bumex 2mg daily to promote diuresis and limit UF on HD Monitor labs in AM S/P dialysis x 4 here with 3 unit transfusions To have out patient dialysis Friday Hope to be able to d/c home 03/08/23 (3) Lethargy: Plan: Acute/unstable --> IMPROVED/stable Increased lethargy/hepatic encephalopathy 02/25, ammonia improved on lactulose Rifaximin initiated BID 02/25 - will need new rx at d/c NH3 - today 50 CXR w/o acute process CO2 elevated on labs 02/25, obtained VBG c/w hypercapnia Overnight pulse ox to determine nocturnal hypoxia - schedule 2L HS for now, will need outpt sleep study UA/culture obtained, finalized enterococcus - placed on Linezolid to avoid vanc/dapto given his kidney function PTH low,appropriate given hypercalcemia. Per nephro, felt elevated Ca driven by diuretic therapy. Continue current course See UTI below Palliative consulted, DNR but wanting to undergo treatment as offered. Ultimate goal is rehab/home for patient, however not had PT/OT evals prior -- rehab rec, but will plan for home w/ HH when able (4) UTI (urinary tract infection): Plan: new since admit, prior cx negative Cx as above, switched to Linezolid to complete course for UTI on 02/28 Reviewed CBC today, Hgb dropped to 7 secondary to bleeding at permcat site Consulted ID regarding antibiotic (Linezolid and kidney disease and changes on CBC) Today WBC trending back down (10.5)and Plt 100 Per ID will continue the Linezolid for now and will check blood cultures Blood cultures pending NGTD Per ID Dr. Gonzales - If patient is being discharged tomorrow ok to d/c the Linezolid as long as the Blood Cultures are still Negative to date (5) Cirrhosis: Plan: Acute on chronic/unstable - high risk Known hx in chart, however patient denied knowing this. Do consume beer, no excessive heavy use reported (educated to stop) --? etoh vs [place] given obesity vs from meds for chemo for his CML GI consulted -- outpt f/u recs, serological workup pending outpt f/u Hepatic encephalopathy 02/21 w/ elevated ammonia and stated lactulose/titrated up Repeat ammonias improved Added Xifaxan 550mg BID 02/25, continue at d/c Limited US 02/24 w/o ascites seen MELD score elevated poor prognosis. >50% 3 month mortality discussed w/ patient. Prior Palliative consulted, made DNR GI/Hepatology follow up q 6 months with U/S and AFP AFP 2.2 on 02/23/23 limited U/S 02/24/23 Monitor MELD labs - will get labs in AM Nephrology as above to assist w/ volume management (6) Anemia: Plan: ABLA secondary to continued bleeding from permcath Had transfusion and was taken back to OR and found a bleeder in muscle wall - cauterized Hgb 7.9 today and transfused 1 unit during dialysis Will repeat CBC in AM (hx CML following w/ CCP -- in remission per discussion w/ Dr Lima, but she will order BCRABL PCR for eval Checked iron panel, Venofer x4 doses this admission per nephrology - B12 wnl, Folate low prior and continues on supplementation (improved from last month, not on home med list but pt states had been taking) - Fecal occult NEGATIVE) (7) S/P ablation of atrial fibrillation: Plan: Stable and chronic - Not currently on anticoagulation, ablation was remote while living in [place] - EKG on admit NSR, L anterior fascicular block, RBBB - Continue metoprolol succinate 50mg daily with hold parameters - clarified was previously on AC in September d/t blood clot - Stopped d/t issues of GI bleeding reported (also has diarrhea baseline w/ ? ulcerative colitis) - Prior to ablation was only on aspirin but patient reported some bleeding w/ such - continued discussions for at least ASA at d/c pending risk/benefit (8) Vitamin D deficiency: Plan: Acute/unstable Vit D low, replacement ordered PTh checked given hypercalcemia, appropriately low - continue current course (9) Folate deficiency: Plan: Acute/unstable - prior low dec 2022, repeat ordered and replacement (10) Lymphedema: Plan: Chronic/stable Wound RN consulted, appreciate assistance - amlactin ordered Monitor for any infection, just completed course Zosyn for LE cellulitis legs less heavy, more mobility for patient will need outpt f/u Also w hx CML, to be monitored by CCP - appears previously on Sprycel but patient d/c due to weight gain/edema. Was to start Gleevec per most recent note but doesn't appear this ever occurred. - reached out to heme/onc, Dr Lima for discussion given complex case above - was stopped meds ~6 months ago, in remission. She will check lab for further info Plan continued inpatient stay 3rd dialysis treatment today with 1 unit transfusion Out patient dialysis already scheduled for Friday03/10/23 Admission and Anticipated Discharge Date Admission Date: February 12, 2023 Subjective Patient was awake this AM sitting up in recliner, he refused lab draw this AM and stated he wanted to be d/c home. Dr Quintero advised him that he needed the blood draw to day to check on his Hgb and his electrolytes. Review of Systems Review of Systems: Patient denies any chest pain, SOB, nausea abdominal pain, constipation. Still with lower extremity swelling/lymphedema. + fatigue Physical Exam Constitutional: well nourished and + morbidly obese; no acute distress and not in distress Neck: trachea midline, no thyromegaly Respiratory: normal respiratory effort, lungs clear to auscultation Cardiovascular: Rate/Rhythm: regular rate Heart Sounds: + murmur Extremities: + edema Gastrointestinal (Abdomen): normal bowel sounds, soft, nontender, no hepatosplenomegaly Psychiatric: A+Ox3, euthymic affect Lymphatic: + lymphedema Results & Data Results & Data Vital Signs (Past 12 Hours) Vital Signs Temp Pulse Resp BP Pulse Ox O2 Del Method 03/07/23 08:11 36.4 C 72 18 109/56 L 100 Room Air Laboratory Results Abnormal lab results 03/05/23 03/07/23 03/07/23 Range/Units 08:34 10:02 10:02 RBC 2.37 L (4.70-6.10) M/uL Hgb 7.9 L (14.0-18.0) g/dl Hct 23.2 L (42.0-52.0) % RDW Std Deviation 59.6 H (36.4-46.3) fL RDW Coeff of Howie 16.8 H (11.5-14.5) % Plt Count 100 L (130-400) K/uL Sodium 129 L (136-145) mmol/L Chloride 97 L (98-107) mmol/L BUN 32 H (6-23) mg/dl Creatinine 2.43 H D (0.6-1.4) mg/dl Glucose 149 H (70-99(Fasting)) mg/dl Total Bilirubin 3.9 H (0.2-1.0) mg/dl Direct Bilirubin 1.1 H (0-0.2) mg/dl Albumin 3.0 L (3.4-5.0) gm/dl Crossmatch See Detail PG Care Time/CCT Total # of Minutes Spent Total Time Spent with Patient: Total time spent is greater than 50% in coordination of care (as documented) at patient's floor/unit and/or counseling patient: Coding Level of Care Code 91755 SUB INP/OBS CARE 2/35MIN Diagnoses Volume overload E87.70 Acute kidney injury superimposed on CKD N17.9; N18.9 Lethargy R53.83 UTI (urinary tract infection) N39.0 Cirrhosis K74.60 Anemia D64.9 Anemia type: other cause S/P ablation of atrial fibrillation Z98.890; Z86.79 Vitamin D deficiency E55.9 Folate deficiency E53.8 Lymphedema I89.0 (6) Anemia Anemia type: other cause
[2023-03-07] MEDS: allopurinoL 300 MG TAB PO SCH (12:10)
[2023-03-08] MEDS: LEVOTHYROXINE SODIUM 137 MCG TABLET PO SCH (06:11)
[2023-03-08 08:02] LABS: BUN Creatinine Ratio 11.2 (10-20); Calcium 8.5 mg/dl (8.6-10.3); Creatinine Clr Calc Pharmacy 35.8 ml/min; Est GFR (African American) 29.9 ml/min; Est GFR (Non-African American) 25.8 ml/min; Potassium 4.3 mmol/L (3.5-5.1)
[2023-03-08 08:09] LABS: Hematocrit (blood only) 24.5 % (42.0-52.0); Hemoglobin 8.5 g/dl (14.0-18.0); Mean Corpuscular Hemoglobin 33.3 pg (25.0-34.0); Mean Corpuscular Hgb Conc 34.7 g/dL (32.0-36.0); Mean Corpuscular Volume 96.1 fL (80.0-100.0); Mean Platelet Volume 10.1 fL (9.4-12.4); Platelet Count 80 K/uL (130-400); RDW Coefficient of Variation 15.8 % (11.5-14.5); RDW Standard Deviation 54.9 fL (36.4-46.3); Red Blood Count 2.55 M/uL (4.70-6.10); White Blood Count 10.69 K/ul (4.8-10.8)
[2023-03-08] MEDS: FAMOTIDINE 20 MG TAB PO SCH (09:41)
[2023-03-08] MEDS: FOLIC ACID 1 MG TAB PO SCH (09:41)
[2023-03-08] MEDS: METOPROLOL SUCC 50MG EXT REL TAB PO SCH (09:41)
[2023-03-08] MEDS: BUMETANIDE 1 MG TAB PO SCH (09:41)
[2023-03-08] MEDS: MAGNESIUM OXIDE 400 MG TAB PO SCH (09:42)
[2023-03-08] MEDS: rifAXIMin 550 MG TABLET PO SCH (09:43)
[2023-03-08] MEDS: CHOLECALCIFEROL 1,000 UNITS 25 MCG TAB PO SCH (09:43)
[2023-03-08] MEDS: MICONAZOLE NITRATE POWDER 85 GM EXT SCH (09:43)
[2023-03-08] MEDS: LACTULOSE SYRUP 30 GM/45 ML UDP PO SCH (09:43)
[2023-03-08] MEDS: MESALAMINE PO SCH (09:45)
--- NOTE | 2023-03-08 10:09 | Discharge Summary ---
Date of Service March 08, 2023 Admission HPI Per Admitting Provider Rodríguez is a 67-year-old male with a past medical history of of A-fib s/p ablation, stage 3A CKD, venous insufficiency, CML, appendiceal cancer s/p partial colonic resection as well as removal of numerous lymph nodes, Ulcerative colitis, PAD, GERD,hypothyroidism, and CML S/P chemo/radiation with resultant lymphedema who presented to the [facility] ED on 02/12/23 with complaints of SOB and increased swelling. In the ED the patient was found to be afebrile, hemodynamically stable, and stable on RA. Labs were remarkable for a CBC with WBC WNL, stable Hgb and platelets, MCV of 100.4, INR of 1.4, Cr of 3.07 (baseline per the last nephro note on 01/28 is 1.2-1.5), glucose of glucose of 147 with sodium of 129 (down from 130 as of 02/10), chloride of 93, BUN of 54, total bili of 2.9, AST of 48, ALT and alk phos WNL, high sen trop of 10.6, BNP of 709 (up from 572 as of 04/01/22). Chest xray was read "1. Faint bibasilar airspace opacities which may represent atelectasis, pneumonia, and/or aspiration. 2. Cardiomegaly and mild pulmonary vascular congestion.". The ED spoke with his Rn Sane (Dr. Giraldo) who has been trying to treat him outpatient. She recommended admission for Diuresis and instructed the ED staff to give the patient 2 mg IV Bumex. At the time of exam the patient was sitting in the bedside recliner in no acute distress. He states that since his last discharge he has continued to gain weight, have increased swelling, and increased SOB. He states that he has been taking 2mg PO Bumex daily and his 100 mg daily but his symptoms have continued to progress. He has had very little daily urine output on the once daily bumex. He denies recent fevers or chills and states that his RLE cellulitis has resolved, he completed his outpatient course of Zosyn. He has been using DONOVAN stockings on the ', he feels as though all of his swelling has moved into his abdomen. He denies recent chest pain, cough, abd pain, nausea, vomiting, dysuria, hematuria, melena, diarrhea, and recent trauma. I asked why he refused the Sub-Q heparin during his last admission, he states that it was because he developed black stool. We discussed starting a Vela catheter for close monitoring of his I's & O's, he is in agreement with placement. He has not seen a sub prior or title vehicle service attendant since being seen inpatient during his admission last March. We discussed code status, he wishes to be a Full Code and for his to make medical decisions for him if he could not make them himself. Per chart review, the patient was recently admitted from 01/22-01/28 for RLE cellulitis and ANNA on CKD. Infectious disease was consulted during his admission and recommended continuing Zosyn, which he completed this past week at the [facility]. His ANNA was thought to be caused from dehydration and increased diuretic dosing. He had been taking 2 mg PO Bumex BID and 100 mg PO Spironolactone daily prior to that admission. On admission his diuretics were held. He was restarted on 2 gm PO Bumex Daily and 100 mg PO Spironolactone daily. Please refer to Dr. Rodriguez's attestation for any changes to the treatment plan Admission Exam Per Admitting Provider General:In no acute distress, stated age, morbidly obese, chronically ill- appearing HEENT:Normocephalic, atraumatic, no scleral icterus, pupils around round, symmetrical, and reactive to light, moist mucus membranes, trachea midline, no thyromegaly Chest/Pulm:No respiratory distress, symmetrical chest expansion, decreased breath sounds in the BL lower lung andres Cardiac:RRR, no murmurs noted Abdomen:Large and distended abdomen, normoactive bowel sounds, firm but non- tender to palpation throughout Musculoskeletal:Symmetrical and without signs of acute trauma, upper and lower extremities with full ROM, no atrophy, spasticity, or flaccidity Extremities:Radial, dorsalis pedis, and posterior tibial pulses are intact and symmetrical,Severe lymphedema in the BL LE's Skin:Warm, dry, signs of chronic venous insufficiency in the BL LE's, no signs of acute infection at this time Neuro:Alert and oriented to person, place, month, year, and president, no focal defects, no tremors noted Psych:No acute distress, calm and cooperative during the exam Principal Diagnosis volume overload CKD requiring dialysis Cirrhosis complicated with HE Discharge Exam Constitutional well nourished and + morbidly obese; no acute distress and not in distress Neck trachea midline, no thyromegaly Respiratory normal respiratory effort, lungs clear to auscultation Cardiovascular Rate/Rhythm: regular rate Heart Sounds: + murmur Extremities: + edema Gastrointestinal (Abdomen) normal bowel sounds, soft, nontender, no hepatosplenomegaly Skin ecchymoses with right chest wall perm cath Neurologic PERRL, EOMI, accommodation nl, no face palsy, no dysarthria Psychiatric A+Ox3, euthymic affect Lymphatic + lymphedema Discharge Data Allergies Allergy/AdvReac Type Severity Reaction Status Date / Time bee venom protein (honey bee) Allergy Severe DYSPNEA;SWE Verified 02/06/23 13:15 LLING latex Allergy Intermediate Rash Verified 02/06/23 13:15 Penicillins Allergy Unknown HAPPENED Verified 02/06/23 13:15 A CHILD Consultations 02/12/23 16:07 ED Decision to Admit Stat 02/12/23 16:21 Consult Nephrology Routine 02/14/23 17:00 Consult Gastroenterology Routine 02/23/23 15:30 Consult Palliative Care Routine 03/01/23 10:55 Consult Vascular Surgery Routine 03/05/23 09:14 Consult Infectious Diseases Routine 03/05/23 09:24 Consult Infectious Diseases Routine Procedures Performed Operation Date: 03/05/23 08:30 Actual Procedures p Exploration of wound, Control of Bleeding. (Right) - Richard Smith MD Ordered Studies 02/12/23 16:48 US liver Urgent 02/12/23 17:37 US abdomen ltd ascites Urgent 02/13/23 12:31 US renal/blad retro comp Routine 02/24/23 10:54 US abdomen ltd ascites Routine 03/02/23 09:50 US renal/blad retro comp Routine 03/03/23 11:34 EV cvc insrt tunnel wo prt/kettle cook Routine US EV guide vascular access Routine Hospital Course (1) Volume overload: Multifactorial - cirrhosis, progressive CKD Continue fluid restriction to 1L/daily - Hgb 8,5 and K4.3 today. Renal US revealed no definite hydronephrosis Patient had 4th dialysis 03/07/23 with 1 unit transfusion (2) Acute kidney injury superimposed on CKD: Acute/unstable - volume overload combination cirrhosis/progressive CKD/CHF, noncompliacne w/ meds at home over past year caring for his . Baseline Solution Coordinator prior was 1.5-1.6, progressive decline over past year Nephrology following 1L fluid restriction Renal US no definite hydronephrosis Nephrology resumed Bumex 2mg daily to promote diuresis and limit UF on HD S/P dialysis x 4 here with 3 unit transfusions To have out patient dialysis Friday03/10/23 (3) Lethargy: Acute/unstable --> IMPROVED/stable Increased lethargy/hepatic encephalopathy 02/25, ammonia improved on lactulose Rifaximin initiated BID 02/25 - will need new rx at d/c NH3 - improved to 50 CXR w/o acute process CO2 elevated on labs 02/25, obtained VBG c/w hypercapnia Overnight pulse ox to determine nocturnal hypoxia - schedule 2L HS for now, will need outpt sleep study UA/culture obtained, finalized enterococcus - placed on Linezolid to avoid vanc/dapto given his kidney function PTH low,appropriate given hypercalcemia. Per nephro, felt elevated Ca driven by diuretic therapy. Continue current course See UTI below Stop Linezolid today Palliative consulted, DNR but wanting to undergo treatment as offered. Ultimate goal is rehab/home for patient, however not had PT/OT toby prior -- rehab rec, but will plan for home w/ HH when able (4) UTI (urinary tract infection): new since admit, prior cx negative Cx as above, switched to Linezolid to complete course for UTI on 02/28 Reviewed CBC today, Hgb dropped to 7 secondary to bleeding at [facility] site Consulted ID regarding antibiotic (Linezolid and kidney disease and changes on CBC) Today WBC trending back down (10.5)and Plt 100 Per ID will continue the Linezolid for now and will check blood cultures Blood cultures pending NGTD Per ID Dr. Christian clark to d/c the Linezolid 03/08 as long as the Blood Cultures are still Negative to date (5) Cirrhosis: Acute on chronic/unstable - high risk Known hx in chart, however patient denied knowing this. Do consume beer, no excessive heavy use reported (educated to stop) --? etoh vs [place] given obesity vs from meds for chemo for his CML GI consulted -- outpt f/u recs, serological workup pending outpt f/u Hepatic encephalopathy 02/21 w/ elevated ammonia and stated lactulose/titrated up Repeat ammonias improved Added Xifaxan 550mg BID 02/25, continue at d/c along with Lactulose Limited US 02/24 w/o ascites seen MELD score elevated poor prognosis. >50% 3 month mortality discussed w/ patient. Prior Palliative consulted, made DNR GI/Hepatology follow up q 6 months with U/S and AFP AFP 2.2 on 02/23/23 limited U/S 02/24/23 Monitor MELD labs Nephrology as above to assist w/ volume management (6) Anemia: ABLA secondary to continued bleeding from permcath Had transfusion and was taken back to OR and found a bleeder in muscle wall - cauterized Hgb 8.5 today (hx CML following w/ CCP -- in remission per discussion w/ Dr Lima, but she will order BCRABL PCR for eval Checked iron panel, Venofer x4 doses this admission per nephrology - B12 wnl, Folate low prior and continues on supplementation (improved from last month, not on home med list but pt states had been taking) - Fecal occult NEGATIVE) (7) S/P ablation of atrial fibrillation: Stable and chronic - Not currently on anticoagulation, ablation was remote while living in [place] - EKG on admit NSR, L anterior fascicular block, RBBB - Continue metoprolol succinate 50mg daily with hold parameters - clarified was previously on AC in September d/t blood clot - Stopped d/t issues of GI bleeding reported (also has diarrhea baseline w/ ? ulcerative colitis) - Prior to ablation was only on aspirin but patient reported some bleeding w/ such - continued discussions for at least ASA at d/c pending risk/benefit (8) Vitamin D deficiency: Acute/unstable Vit D low, replacement ordered PTh checked given hypercalcemia, appropriately low - continue current course (9) Folate deficiency: Acute/unstable - prior low dec 2022, repeat ordered and replacement (10) Lymphedema: Chronic/stable Wound RN consulted, appreciate assistance - amlactin ordered Monitor for any infection, just completed course Zosyn for LE cellulitis legs less heavy, more mobility for patient will need outpt f/u Also discussed to avoid sodium, continue 1L fluid restriction, elevate legs and do not sleep in recliner with legs down Also w hx CML, to be monitored by CCP - appears previously on Sprycel but patient d/c due to weight gain/edema. Was to start Gleevec per most recent note but doesn't appear this ever occurred. - reached out to heme/onc, Dr Lima for discussion given complex case above - was stopped meds ~6 months ago, in remission. She will check lab for further info Plan Out patient dialysis already scheduled for Friday03/10/23 Total Time Total Time Spent Total Time Spent (In Minutes): 40 Discharge Plan Discharge Items Patient Disposition: Home - Home Health Services Reason For Visit: SOB, VOLUME OVERLOAD Discharge Diagnosis: volume overload progressive CKD requiring dialysis Cirrhosis complicated by HE Activity: Resume your previous activity Lifting: Gradually increase as tolerated Non-emergency contact: Primary Care Provider Call non-emergency contact if: you have any medication questions and you have a fever Follow-up/Referrals: Israel Melton MD [Primary Care Provider] - Diet: Dialysis Renal and Low Sodium (2gm) Fluids: 1000ml (4 cups) Addtl Attending Provider Instructions: You were admitted with lower leg edema and shortness of breath. You had worsening kidney functions and were evaluated by nephrology. You also had a urinary tract infection and were started on IV antibiotics. You had blood cultures taken and they have revealed no growth at 48 hours. The final result is pending and will have to be followed up with your family doctor. You had a perm cath placed to receive dialysis and had 4 treatments with some blood transfusions as well. You kidney functions gretly improved with dialysis. You are set up with outpatient home health assistance as well as outpatient dialysis treatments and will start Friday03/10/23 in the AM. You had adequate treatment for the UTI with IV antibiotics and were not discharged on any antibiotics. You also had hepatic encephalopathy from elevated ammonia levels in your blood secondary to your liver cirrhosis. You were placed on Lactulose and Xifaxan both will help to control/stablize the liver cirrhosis. You should follow up with a GI or title vehicle service attendant every 6 months for a U/S of your liver and blood work for AFP. You had both of these 02/26/23. You will be due to repeat those in August 2023. You also will need set up for sleep study. This can be scheduled by your family doctor. Pending Studies at Discharge: Yes Studies:: final blood cultures Stand-Alone Forms: My [facility] Medications and DC Order Prescriptions: New Xifaxan 550 mg Tablet 550 mg PO BID Qty: 60 0RF lactulose 10 gram/15 mL (15 mL) Solution 30 g PO TID Qty: 750 0RF cholecalciferol (vitamin D3) 25 mcg (1,000 unit) Capsule 3,000 unit PO QAM Qty: 0 0RF folic acid 1 mg Tablet 1 mg PO QAM Qty: 30 0RF Continued metoprolol succinate 100 mg tablet extended release 24 hr 50 mg PO QAM triamcinolone acetonide 0.1 % ointment 1 applic topical DAILY PRN (Reason: Skin Irritation) Qty: 80 1RF Rx Instructions: Apply topically to legs daily PRN spironolactone 100 mg tablet 100 mg PO QAM Qty: 90 3RF tadalafil 20 mg tablet 20 mg PO DAILY PRN (Reason: Erectile Dysfunction) Rx Instructions: administer approximately 30min before sexual activity; do not use more than 1 dose per 24hrs epinephrine [EpiPen 2-Sb] 0.3 mg/0.3 mL auto-injector 0.3 mg IM Q10M PRN (Reason: anaphylaxis) Qty: 2 2RF bumetanide 2 mg tablet 2 mg PO DAILY allopurinol 300 mg tablet 300 mg PO QDL mesalamine 0.375 gram capsule,extended release 24hr 1.5 g PO QDL Rx Instructions: TAKES 4 CAPS. levothyroxine 137 mcg tablet 137 mcg PO QPM Rx Instructions: Takes 2 hrs after supper menthol-zinc oxide [Calmoseptine] 0.44-20.6 % ointment 1 applic EXT DIRECTED magnesium oxide 400 mg (241.3 mg magnesium) Tablet 400 mg PO BID Qty: 60 0RF Discharge Orders: Discharge Order (Routine); Ordered 03/08/23 Ordered By: Keke Sanchez/Other Patient Handouts: Understanding Deep Vein Thrombosis, Hepatic Enc ephalopathy, Hemodialysis, Kidney Disease Potassium in Diet, Kidney Disease Protein, Kidney Disease Fluid Intake, Kidney Disease: Limiting Fluids, Kidney Disease: Eating Less Sodium, Kidney Disease Limiting Sodium, Cirrhosis of Liver Dc, ED Lymphedema Admission Data Admit Date/Time: 02/12/23 16:20 Attending Provider: John Reynoso Admit Provider: Juan Rodriguez Primary Care Provider: Israel Melton Other Providers: Kvng Salamanca [facility] ; John Reynoso ; Angely Gonzales ; Juan Rodriguez ; Hardeep Quintero ; Demetrius Victoria ; Cheli Guillen ; Richard Smith Other Interventions: Discharge Summary Assessment (RN) Last Done: 03/08/23 10:54 Coding Level of Care Code 55040 INP/OBS DISCH >30 MIN Diagnoses Volume overload E87.70 Acute kidney injury superimposed on CKD N17.9; N18.9 Lethargy R53.83 UTI (urinary tract infection) N39.0 Cirrhosis K74.60 Anemia D64.9 Anemia type: other cause S/P ablation of atrial fibrillation Z98.890; Z86.79 Vitamin D deficiency E55.9 Folate deficiency E53.8 Lymphedema I89.0
[2023-03-08] MEDS: allopurinoL 300 MG TAB PO SCH (11:38)
--- NOTE | 2023-03-08 12:10 | Nephrology Progress Note ---
Date of Service March 08, 2023 Assessment & Plan (1) Acute kidney injury superimposed on CKD: (2) Anemia: (3) Bilateral edema of lower extremity: (4) Hyponatremia: (5) Hypertension: (6) Volume overload: Plan 68 year old male the history of Chronic diuretic resistant lymphedema. as renal function progressively worsen with diuresis, he was started on dialysis via tunneled dialysis catheter on 03/03/23. overall he has been tolerating dialysis well, had significant improvement in lower extremity edema. Is scheduled to have 1st outpatient dialysis on Friday at [facility] in [place]. -- Okay to be discharged later today as overall he is feeling better. Continue current dose of Bumex. -- Continue on renal vitamin, dose medications for EGFR less than 10. Left arm nephrology precaution for AV fistula in future. Follow while inpatient Admission and Anticipated Discharge Date Admission Date: February 12, 2023 Imelda Mustapha was seen and evaluated this morning. Overall he has been feeling better, has been having decent urine output, no shortness of breath or abdominal discomfort. lower extremity edema improved significantly and he has been walking more and more. No bleeding from tunneled dialysis catheter site, hemoglobin improved above 8.5. Had dialysis yesterday. Review of Systems Review of Systems: detailed review of system was otherwise unremarkable. Physical Exam Constitutional: WD/WN, vitals as above comfortable; no acute distress Eyes: + anicteric sclerae Neck: normal visual inspection Respiratory: Auscultation: lungs clear to auscultation bilaterally Cardiovascular: Rate/Rhythm: regular rate and regular rhythm Heart Sounds: normal S1 and normal S2 Extremities: + edema (chronic b/l lymphedema) Gastrointestinal (Abdomen): Inspection/Auscultation: + abdominal edema (slight improvement) Skin: + crusts Neurologic: no focal motor deficits Psychiatric: Orientation: alert and oriented x 3 Affect: euthymic affect Results & Data Vital Signs (Past 12 Hours) Vital Signs Temp Pulse Pulse Pulse Pulse Pulse Resp 03/08/23 10:54 36.7 C 83 68 78 98 H 81 20 03/08/23 08:30 36.7 C 68 20 BP BP Pulse Ox O2 Del Method 03/08/23 10:54 110/61 95/51 L 99 03/08/23 08:30 95/51 L 99 Room Air PG Care Time/CCT Total # of Minutes Spent Total Time Spent with Patient: Total time spent is greater than 50% in coordination of care (as documented) at patient's floor/unit and/or counseling patient: Coding Level of Care Code 50689 SUB INP/OBS CARE 350MIN Diagnoses Acute kidney injury superimposed on CKD N17.9; N18.9 Anemia D64.9 Anemia type: other cause Bilateral edema of lower extremity R60.0 Hyponatremia E87.1 Hypertension I10 Volume overload E87.70 (2) Anemia Anemia type: other cause
--- NOTE | 2023-03-12 09:47 | Coding Query ---
CONGESTIVE HEART FAILURE Pt adm with fluid overload, ANNA , CKD progressing . Permacath inserted by Dr. Smith. 03/07 Nephrology pn states ANNA superimposed on CKD. Bilateral edema extremities right heart failure. 02/13 Nephrology pn stated ANNA/CKD related to CHF. A diagnosis of Congestive Heart Failure is documented in the patient's medical record. To accurately code this diagnosis and to compare patient severity, we ask that you specify the type of heart failure by placing an X within the parenthesis (x). Thanks for your help EMILY Fletcher CCS Volume overload based on renal and hepatic failure heart failure not defined Thank you Guy SANCHEZ
== END 2023-03-08 12:51 | disposition home health service (06) | DRG 673 ==
LOC: ED 11:14 → 3N 16:20 → SUATTDRO 16:20 → 3N 17:44

== ENCOUNTER 2023-09-15 14:28 | Inpatient (IN) ==
[2023-09-15] MEDS ORDERED: SODIUM CHLORIDE 0.9% 1,000 ML IV ONE (14:47)
--- NOTE | 2023-09-15 14:51 | Emergency Department Note ---
Impression & Plan Altered mental status, Increased ammonia level ED Provider Note NAME: EMILY MUÑOZ AGE: 68 SEX: M : 1955 ARRIVES VIA: Ambulance INFORMANT: Patient ED PROVIDER(S): Marlo Davila DO CHIEF COMPLAINT: AMS HPI: Patient is a 68-year-old male who presents to the ER for confusion brought in by EMS. He has a past medical history of CML, hypertension, hypertension, cirrhosis, ANNA and ulcerative colitis who was found confused per family this morning. Per report from EMS they stated that he has not been taking his lactulose. No falls or trauma. Patient denies all complaints although history is limited as he is confused. ADDITIONAL HISTORY OBTAINED: Per HPI Chronic Medical/Social Conditions Affecting Care: Per HPI PAST MEDICAL HISTORY:See Below PAST SURGICAL HISTORY:See Below FAMILY HISTORY:See Below SOCIAL HISTORY:See Below HOME MEDICATIONS:See Below ALLERGIES:See Below VITALS:See Below PHYSICAL EXAMINATION: GENERAL: Sitting up in bed, alert, well appearing, well nourished, no distress, non-toxic EYE EXAM: normal conjunctiva. PERRL and EOM's intact. OROPHARYNX: no exudate, no erythema, lips, buccal mucosa, and tongue normal and mucous membranes are moist NECK: supple, no nuchal rigidity, no adenopathy, non-tender LUNGS: Clear to auscultation. Normal chest wall mechanics HEART: no murmurs, S1 normal and S2 normal ABDOMEN: abdomen soft, non-tender, normo-active bowel sounds, no masses, no rebound or guarding. UPPER EXTREMITIES: upper extremities are grossly normal. LOWER EXTREMITIES: No pitting edema. NEURO EXAM: Oriented to person but not place month or year, cranial nerves II- XII intact, normal speech, no weakness of arms, no weakness of legs. No drift. Finger to nose intact. Gross sensation intact. MEDICAL DECISION MAKING: Patient is a 68-year-old brought in by EMS for altered mental status as he does have a history of cirrhosis and he stopped taking his lactulose per report. IV was established blood work is obtained. Labs show mild leukocytosis 11,000. Mild anemia at 8.7. Platelets slightly low at 124. INR 1.4. Mild hyponatremia at 129. Creatinine up at 2.2 up from baseline of 1.8. T. bili at 3.8 which is just slightly up from his baseline as well. Troponin was negative. UA with leuks whites and yeast. Was covered with 2 g Rocephin. Patient was ordered lactulose.'s patient was updated bedside discussed with the hospitalist and admitted for further work-up of his confusion with the ammonia level in the 140s with a likely cause. Chest x-ray without any focal infiltrate. CT head was negative. External Records Reviewed: 09/11 seen by PCP yudith savage for follow-up Consults/Care Managements Discussions: Per MDM Triage Nursing notes reviewed. Limited review of prior medical records performed Vital Signs: reviewed and remarkable for no significant abnormalities Differential diagnosis: Differential diagnoses includes but is not limited to toxic, metabolic, infectious, traumatic, cardiac, neurologic, hematologic, psychiatric and inflammatory etiologies. ER treatment provided: See below Diagnostics interpreted by me include EKG and cardiac monitoring as listed below: -Cardiac Monitoring: An order was placed for continuous cardiac monitoring. The monitor shows a rate of 89 with sinus rhythm. -ECG: Sinus rhythm rate 87 Left axis Right bundle branch block QTc 505 -Laboratory studies:Interpreted by me as stated above in MDM and shown below. Imaging studies: Xrays: As interpreted by me: Portable AP upright 1 view of the chest shows enlarged heart CTs show: CT head was negative Procedures:none Critical Care: None Past Med/Surg History Medical History (Updated 09/15/23 @ 20:48 by Marlo Davila DO) Anasarca Anemia Atrial flutter 10/02/2020: Ablation of typical right atrial isthmus dependent flutter. [facility] Bacteremia Chronic kidney disease, stage 3a follows with Dr. Giraldo Cirrhosis CML (chronic myelocytic leukemia) no chemo at present GERD (gastroesophageal reflux disease) History of malignant neoplasm of appendix History of supraventricular tachycardia Hypertension Hypothyroidism Lymphedema Paroxysmal A-fib resolved with ablation Pressure ulcer of buttock Pulmonary edema Pulmonary embolism Jul/Aug 2022 > was treated with Eliquis and now finished Right heart failure Stage 3b chronic kidney disease SVT (supraventricular tachycardia) 01/21/2012: Ablation of typical slow fast AVNRT [facility] Trifascicular block follows with Dr. Painter Ulcerative colitis Venous ulcers of both lower extremities Vitamin D deficiency Volume overload Surgical History (Updated 09/11/23 @ 19:46 by Francia Savage DO) H/O hernia repair (12/04/12) H/O laparoscopy H/O left knee surgery H/O lymph node excision (~2011) 36 total H/O right hemicolectomy (~2011) 36 lymph nodes removed as well History of appendectomy History of colonoscopy (2014) History of esophagogastroduodenoscopy (EGD) History of removal of Port-a-Cath History of tooth extraction S/P ablation of atrial fibrillation Status post ablation of atrial flutter (12/04/12) 2020 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) Family History Grandmother (Paternal) Colorectal cancer Father Myocardial infarction Prostate cancer Denies family history of Ovarian cancer Dementia Breast cancer Social History Smoking Status: Never smoker Second Hand Exposure: No; Do You Dip or Chew Tobacco: No; Hx Alcohol Use: No Hx Substance Use: No Preferred Language: Bhutanese Communication Ability: Effective Visual Impairment: Limited Hearing Ability: Normal Autoclave Operator Required: No Beliefs That Will Affect Care: Restorationist marital status: Current Living Situation: Spouse Current Living Situation Comment: Lives with who has her own healthcare issues 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 How many Children do You have: 2 Feels Safe at Home: Yes Childhood Exposure to Second-Hand Smoke: No Diet: low salt and other Diet Comment: 2000 cc fluid restriction during the past year weight has: increased > 10 lbs Dental Care, Regularly: Yes Physical Activity Frequency: Daily Seatbelt Use: always Sunscreen Use: Yes Assistive Devices: Cane Allergies Allergies Allergy/AdvReac Type Severity Reaction Status Date / Time bee venom protein (honey bee) Allergy Severe DYSPNEA;SWE Verified 09/15/23 17:24 LLING latex Allergy Intermediate Rash Verified 09/15/23 17:24 Penicillins Allergy Unknown HAPPENED Verified 09/15/23 17:24 A CHILD Home Meds Home Medications Medication Instructions Recorded Confirmed menthol 0.44 %-zinc oxide 20.6 % 1 applic EXT DIRECTED 09/17/22 09/15/23 topical ointment (Calmoseptine) metoprolol succinate 25 mg 12.5 mg PO DAILY 09/15/23 09/15/23 tablet,extended release 24 hr Previous Rx's Medication Instructions Recorded epinephrine 0.3 mg/0.3 mL 0.3 mg (0.3 mL) IM Q10M PRN 08/06/21 injection, auto-injector (EpiPen anaphylaxis #2 ea 2-Bs) triamcinolone acetonide 0.1 % 1 applic topical DAILY PRN Skin 02/08/22 topical ointment Irritation #80 grams magnesium oxide 400 mg (241.3 mg 400 mg PO BID #60 tabs 01/28/23 magnesium) tablet cholecalciferol (vitamin D3) 25 3,000 unit PO QAM #0 caps 03/08/23 mcg (1,000 unit) capsule folic acid 1 mg tablet 1 mg PO QAM #30 tabs 03/08/23 lactulose 10 gram/15 mL (15 mL) 30 g (45 mL) PO TID #750 mL 03/31/23 oral solution levothyroxine 137 mcg tablet 137 mcg PO QPM #90 tabs 03/31/23 mesalamine 0.375 gram 1.5 g PO QDL #360 caps 03/31/23 capsule,extended release 24 hr rifaximin 550 mg tablet (Xifaxan) 550 mg PO BID #180 tabs 03/31/23 spironolactone 100 mg tablet 100 mg PO QAM #90 tabs 07/22/23 bumetanide 2 mg tablet 2 mg PO BID #180 tabs 08/07/23 allopurinol 300 mg tablet 300 mg PO DAILY #90 tabs 09/15/23 Results & Data (ED) Vital Signs Vital Signs - 24 hr 09/15/23 14:36 09/15/23 14:36 09/15/23 14:58 Temperature 36.8 C Temperature Source Oral Pulse Rate 86 86 Pulse Rate from SpO2 Sensor Respiratory Rate 22 Respiratory Effort / Characteristics Non-Labored Respiratory Depth Normal Blood Pressure 134/61 Blood Pressure Mean 85 Pulse Oximetry 98 97 Oxygen Delivery Method Room Air Room Air Oxygen Flow Rate 0 Sepsis Recent Fever Within 48 Hours No Sepsis New/Unexplained Change in Mental Status Yes Sepsis Action Taken by Nursing No Action Required 09/15/23 16:01 09/15/23 14:58 09/15/23 15:00 Temperature Temperature Source Pulse Rate 84 Pulse Rate from SpO2 Sensor 84 Respiratory Rate 16 Respiratory Effort / Characteristics Respiratory Depth Blood Pressure 143/57 H Blood Pressure Mean 95 Pulse Oximetry 98 98 Oxygen Delivery Method Oxygen Flow Rate Sepsis Recent Fever Within 48 Hours Sepsis New/Unexplained Change in Mental Status Sepsis Action Taken by Nursing 09/15/23 15:00 09/15/23 15:30 09/15/23 15:30 Temperature Temperature Source Pulse Rate 86 89 Pulse Rate from SpO2 Sensor 86 88 Respiratory Rate 19 15 Respiratory Effort / Characteristics Respiratory Depth Blood Pressure 132/62 Blood Pressure Mean 88 Pulse Oximetry 97 96 Oxygen Delivery Method Oxygen Flow Rate Sepsis Recent Fever Within 48 Hours Sepsis New/Unexplained Change in Mental Status Sepsis Action Taken by Nursing 09/15/23 15:46 09/15/23 16:00 09/15/23 16:20 Temperature Temperature Source Pulse Rate 88 87 Pulse Rate from SpO2 Sensor Respiratory Rate 17 18 Respiratory Effort / Characteristics Respiratory Depth Blood Pressure 136/58 L Blood Pressure Mean 103 Pulse Oximetry Oxygen Delivery Method Oxygen Flow Rate Sepsis Recent Fever Within 48 Hours Sepsis New/Unexplained Change in Mental Status Sepsis Action Taken by Nursing 09/15/23 16:30 09/15/23 16:30 09/15/23 17:00 Temperature Temperature Source Pulse Rate 77 Pulse Rate from SpO2 Sensor 77 Respiratory Rate 22 Respiratory Effort / Characteristics Respiratory Depth Blood Pressure 131/60 138/59 L Blood Pressure Mean 105 99 Pulse Oximetry 100 Oxygen Delivery Method Oxygen Flow Rate Sepsis Recent Fever Within 48 Hours Sepsis New/Unexplained Change in Mental Status Sepsis Action Taken by Nursing 09/15/23 17:00 09/15/23 17:30 09/15/23 17:30 Temperature Temperature Source Pulse Rate 74 74 Pulse Rate from SpO2 Sensor 76 75 Respiratory Rate 15 21 Respiratory Effort / Characteristics Respiratory Depth Blood Pressure 127/58 L Blood Pressure Mean 90 Pulse Oximetry 94 95 Oxygen Delivery Method Oxygen Flow Rate Sepsis Recent Fever Within 48 Hours Sepsis New/Unexplained Change in Mental Status Sepsis Action Taken by Nursing 09/15/23 19:16 09/15/23 19:00 09/15/23 19:56 Temperature Temperature Source Pulse Rate 87 87 89 Pulse Rate from SpO2 Sensor Respiratory Rate 16 22 Respiratory Effort / Characteristics Respiratory Depth Blood Pressure 137/62 137/53 L Blood Pressure Mean 87 81 Pulse Oximetry 96 98 Oxygen Delivery Method Room Air Room Air Oxygen Flow Rate Sepsis Recent Fever Within 48 Hours Sepsis New/Unexplained Change in Mental Status Sepsis Action Taken by Nursing Laboratory Data 09/15/23 14:43 09/15/23 14:43 Lab Results 10/23/23 10/23/23 10/23/23 Range/Units 14:43 14:43 14:56 WBC 11.47 H (4.8-10.8) K/ul RBC 2.58 L (4.70-6.10) M/uL Hgb 8.7 L (14.0-18.0) g/dl Hct 24.6 L (42.0-52.0) % MCV 95.3 (80.0-100.0) fL MCH 33.7 (25.0-34.0) pg MCHC 35.4 (32.0-36.0) g/dL RDW Std Deviation 53.0 H (36.4-46.3) fL RDW Coeff of Howie 15.5 H (11.5-14.5) % Plt Count 124 L (130-400) K/uL MPV 10.2 (9.4-12.4) fL Immature Gran % (Auto) 1.1 % Neut % (Auto) 69.0 % Lymph % (Auto) 18.7 % Miner % (Auto) 8.2 % Eos % (Auto) 2.3 % Baso % (Auto) 0.7 % Neut # (Auto) 7.92 H (1.40-6.50) K/uL Lymph # (Auto) 2.14 (1.20-3.40) K/uL Miner # (Auto) 0.94 H (0.11-0.59) K/uL Eos # (Auto) 0.26 (0.00-0.50) K/uL Baso # (Auto) 0.08 (0.00-0.20) K/uL Immature Gran # (Auto) 0.13 (0.01-0.20) K/uL PT (9.0-12.0) Seconds INR (0.9-1.1) Sodium 129 L (136-145) mmol/L Potassium 4.1 (3.5-5.1) mmol/L Chloride 91 L (98-107) mmol/L Carbon Dioxide 32 (21-32) mmol/L Anion Gap 6 (3-11) BUN 56 H (6-23) mg/dl Creatinine 2.25 H (0.6-1.4) mg/dl Est Cr Clr Drug Dosing 39.6 ml/min Est GFR ( Amer) 34.0 ml/min Est GFR (Non-Af Amer) 29.3 ml/min BUN/Creatinine Ratio 24.9 H (10-20) Glucose 139 H (70-99(Fasting)) mg/dl Calcium 11.0 H (8.6-10.3) mg/dl Total Bilirubin 3.8 H (0.2-1.0) mg/dl AST 47 H (13-39) U/L ALT 27 (7-52) U/L Alkaline Phosphatase 71 (34-104) U/L Ammonia (18-72) umol/L Troponin I High Sens 12.4 (0-20) pg/ml Total Protein 7.8 (6.0-8.3) gm/dl Albumin 3.6 (3.4-5.0) gm/dl Globulin 4.2 H (2.5-4.0) gm/dl Albumin/Globulin Ratio 0.9 (0.9-2) Lipase 44 (11-82) U/L Urine Color Urine Appearance (Clear) Urine pH (4.5-7.5) Ur Specific Metcalfe (1.000-1.030) Urine Protein (Negative) Urine Glucose (UA) (Negative) Urine Ketones (Negative) Urine Blood (Negative) Urine Nitrite (Negative) Urine Bilirubin (Negative) Urine Urobilinogen (Negative) Ur Leukocyte Esterase (Negative) Urine WBC (Auto) (0-5) /hpf Urine RBC (Auto) (0-4) /hpf U Hyaline Cast (Auto) (0-5) /lpf U Epithel Cells (Auto) (0-5) /lpf Urine Bacteria (Auto) (Negative) Urine Yeast (None Prsent) SARS-CoV-2, RNA, NAAT NEGATIVE (NEGATIVE) 09/15/23 09/15/23 09/15/23 Range/Units 16:58 16:58 18:00 WBC (4.8-10.8) K/ul RBC (4.70-6.10) M/uL Hgb (14.0-18.0) g/dl Hct (42.0-52.0) % MCV (80.0-100.0) fL MCH (25.0-34.0) pg MCHC (32.0-36.0) g/dL RDW Std Deviation (36.4-46.3) fL RDW Coeff of Howie (11.5-14.5) % Plt Count (130-400) K/uL MPV (9.4-12.4) fL Immature Gran % (Auto) % Neut % (Auto) % Lymph % (Auto) % Miner % (Auto) % Eos % (Auto) % Baso % (Auto) % Neut # (Auto) (1.40-6.50) K/uL Lymph # (Auto) (1.20-3.40) K/uL Miner # (Auto) (0.11-0.59) K/uL Eos # (Auto) (0.00-0.50) K/uL Baso # (Auto) (0.00-0.20) K/uL Immature Gran # (Auto) (0.01-0.20) K/uL PT 14.7 H (9.0-12.0) Seconds INR 1.4 H (0.9-1.1) Sodium (136-145) mmol/L Potassium (3.5-5.1) mmol/L Chloride (98-107) mmol/L Carbon Dioxide (21-32) mmol/L Anion Gap (3-11) BUN (6-23) mg/dl Creatinine (0.6-1.4) mg/dl Est Cr Clr Drug Dosing ml/min Est GFR ( Amer) ml/min Est GFR (Non-Af Amer) ml/min BUN/Creatinine Ratio (10-20) Glucose (70-99(Fasting)) mg/dl Calcium (8.6-10.3) mg/dl Total Bilirubin (0.2-1.0) mg/dl AST (13-39) U/L ALT (7-52) U/L Alkaline Phosphatase (34-104) U/L Ammonia 145.0 H (18-72) umol/L Troponin I High Sens (0-20) pg/ml Total Protein (6.0-8.3) gm/dl Albumin (3.4-5.0) gm/dl Globulin (2.5-4.0) gm/dl Albumin/Globulin Ratio (0.9-2) Lipase (11-82) U/L Urine Color Yellow Urine Appearance Clear (Clear) Urine pH 6.5 (4.5-7.5) Ur Specific Metcalfe 1.011 (1.000-1.030) Urine Protein Negative (Negative) Urine Glucose (UA) Negative (Negative) Urine Ketones Negative (Negative) Urine Blood Negative (Negative) Urine Nitrite Negative (Negative) Urine Bilirubin Negative (Negative) Urine Urobilinogen Negative (Negative) Ur Leukocyte Esterase 2+ H (Negative) Urine WBC (Auto) >30 H (0-5) /hpf Urine RBC (Auto) 0-4 (0-4) /hpf U Hyaline Cast (Auto) 5-10 H (0-5) /lpf U Epithel Cells (Auto) 10-20 H (0-5) /lpf Urine Bacteria (Auto) Negative (Negative) Urine Yeast Budding w/ Hyphae A (None Prsent) SARS-CoV-2, RNA, NAAT (NEGATIVE) Administered Medications Discontinued Medications Sodium Chloride (Nss) 1,000 mls @ 999 mls/hr IV .Q1H1M ONE Stop: 09/15/23 15:47 Last Infusion: 09/15/23 17:22 Dose: 0 mls/hr Documented By: Admin: 09/15/23 15:57 Dose: 999 mls/hr Documented By: CHRISTIAN Lactulose (Lactulose Syrup 30 Gm/45 Ml Udp) 30 gm PO NOW STA Stop: 09/15/23 18:06 Last Admin: 09/15/23 19:52 Dose: 30 gm Documented By: BEVERLY Imaging Data Radiologist's Impression: Head CT 09/15/23 14:47 CT OF THE HEAD WITHOUT CONTRAST CLINICAL HISTORY: Altered mental status. COMPARISON STUDY: No previous studies for comparison. CT DOSE: 703.85 mGy.cm TECHNIQUE: Helical axial images of the head were obtained without IV contrast. Automated exposure control was utilized for the study. A dose lowering technique was utilized adhering to the principles of ALARA. FINDINGS: No acute intracranial hemorrhage, midline shift or mass effect is present. White matter hypodensity suggests small vessel disease. The ventricular system is unremarkable. The basal cisterns are patent. No extra-axial collections are present. There are no findings to suggest acute dural sinus thrombosis or acute territorial infarct. No significant calvarial abnormalities are present. IMPRESSION: No acute intracranial findings. ACT 112: Negative or not required by law. Electronically signed by: Vikram Angel M.D. 09/15/2023 4:37 PM Chest X-Ray 09/15/23 14:48 XR chest 1V portable CLINICAL HISTORY: Chest pain, nonspecific COMPARISON STUDY: Chest CT September 02, 2022. Chest radiograph March 09, 2023. FINDINGS: Lung volumes are mildly diminished. There is no pneumothorax. No definite pleural effusion is present. There is moderate cardiomegaly. Interstitial prominence is noted, accentuated on this hypoventilatory study. No definite consolidation. IMPRESSION: Moderate cardiomegaly. Apparent pulmonary vascular congestion which could be due to a hypoventilatory study. ACT 112: Negative or not required by law. Electronically signed by: Vikram Angel M.D. 09/15/2023 3:28 PM Abdomen/Pelvis CT 09/15/23 18:22 Exam(s): CT ABDOMEN + PELVIS Without Contrast EXAM: CT Abdomen and Pelvis Without Intravenous Contrast CLINICAL HISTORY: Reason for exam: hepatic encephalopathy, cirrhosis. TECHNIQUE: Axial computed tomography images of the abdomen and pelvis without intravenous contrast. CTDI is 27.21 mGy and DLP is 1915.88 mGy-cm. Automated exposure control was utilized for the study. A dose lowering technique was utilized adhering to the principles of ALARA. COMPARISON: No relevant prior studies available. FINDINGS: Lung bases: Atelectasis at the lung bases. ABDOMEN: Liver: Unremarkable. No focal hepatic lesion. Gallbladder and bile ducts: Cholelithiasis. No ductal dilation. Pancreas: Unremarkable. No ductal dilation. Spleen: Mild splenomegaly. Adrenals: Unremarkable. No mass. Kidneys and ureters: Unremarkable. No hydronephrosis or nephrolithiasis. Stomach and bowel: Diverticulosis, without acute diverticulitis. No small bowel obstruction. No free intraperitoneal air. PELVIS: Appendix: No findings to suggest acute appendicitis. Bladder: Unremarkable. No stones. Reproductive: Calcified seminal vesicles, correlate for diabetes. ABDOMEN and PELVIS: Intraperitoneal space: Unremarkable. No free air. No significant fluid collection. Bones/joints: Degenerative changes of the spine. Bilateral hip arthroplasties. Mild collection anterior to the RIGHT hip arthroplasty. No acute fracture. No dislocation. Soft tissues: Unremarkable. Vasculature: Atherosclerotic changes of the aorta. No abdominal aortic aneurysm. Lymph nodes: Unremarkable. No enlarged lymph nodes. IMPRESSION: 1. No hydronephrosis or nephrolithiasis. 2. Cholelithiasis. 3. Bilateral hip arthroplasties. Mild collection anterior to the RIGHT hip arthroplasty. 4. Diverticulosis, without acute diverticulitis. No small bowel obstruction. No free intraperitoneal air. Electronically signed by: Ever Leon MD 09/15/23 20:01 PM Discharge Plan Visit Data Chief Complaint: Altered Mental Status Stated Complaint: AMS ED Provider: Marlo Davila Discharge Problem: Altered mental status, Increased ammonia level Forms Stand Alone Forms: [facility] Prescriptions Prescriptions: No Action triamcinolone acetonide 0.1 % ointment 1 applic topical DAILY PRN (Reason: Skin Irritation) Qty: 80 1RF Rx Instructions: Apply topically to legs daily PRN lactulose 10 gram/15 mL (15 mL) solution 30 g PO TID Qty: 750 6RF Rx Instructions: please send for 1 months supply and 6 refills levothyroxine 137 mcg tablet 137 mcg PO QPM Qty: 90 3RF Rx Instructions: Takes 2 hrs after supper mesalamine 0.375 gram capsule,extended release 24hr 1.5 g PO QDL Qty: 360 3RF Rx Instructions: TAKES 4 CAPS. Xifaxan 550 mg tablet 550 mg PO BID Qty: 180 3RF spironolactone 100 mg tablet 100 mg PO QAM Qty: 90 3RF bumetanide 2 mg tablet 2 mg PO BID Qty: 180 3RF allopurinol 300 mg tablet 300 mg PO DAILY Qty: 90 2RF epinephrine [EpiPen 2-Sb] 0.3 mg/0.3 mL auto-injector 0.3 mg IM Q10M PRN (Reason: anaphylaxis) Qty: 2 2RF Rx Instructions: PER PT "OUT DATED, NEED A NEW ONE". cholecalciferol (vitamin D3) 25 mcg (1,000 unit) Capsule 3,000 unit PO QAM Qty: 0 0RF folic acid 1 mg Tablet 1 mg PO QAM Qty: 30 0RF metoprolol succinate 25 mg tablet extended release 24 hr 12.5 mg PO DAILY Rx Instructions: 0.5 tab daily menthol-zinc oxide [Calmoseptine] 0.44-20.6 % ointment 1 applic EXT DIRECTED magnesium oxide 400 mg (241.3 mg magnesium) Tablet 400 mg PO BID Qty: 60 0RF Referrals Referrals: Francia Savage DO [Primary Care Provider] -
[2023-09-15 15:23] LABS: Basophils # (auto) 0.08 K/uL (0.00-0.20); Basophils % (auto) 0.7 %; Eosinophils # (auto) 0.26 K/uL (0.00-0.50); Eosinophils % (auto) 2.3 %; Hematocrit (blood only) 24.6 % (42.0-52.0); Hemoglobin 8.7 g/dl (14.0-18.0); Immature Granulocytes # (auto) 0.13 K/uL (0.01-0.20); Immature Granulocytes % (auto) 1.1 %; Lymphocytes # (auto) 2.14 K/uL (1.20-3.40); Lymphocytes % (auto) 18.7 %; Mean Corpuscular Hemoglobin 33.7 pg (25.0-34.0); Mean Corpuscular Hgb Conc 35.4 g/dL (32.0-36.0); Mean Corpuscular Volume 95.3 fL (80.0-100.0); Mean Platelet Volume 10.2 fL (9.4-12.4); Monocytes # (auto) 0.94 K/uL (0.11-0.59); Monocytes % (auto) 8.2 %; Neutrophils # (auto) 7.92 K/uL (1.40-6.50); Platelet Count 124 K/uL (130-400); RDW Coefficient of Variation 15.5 % (11.5-14.5); Red Blood Count 2.58 M/uL (4.70-6.10); White Blood Count 11.47 K/ul (4.8-10.8)
--- NOTE | 2023-09-15 15:29 | XRay Report ---
XR chest 1V portable CLINICAL HISTORY: Chest pain, nonspecific COMPARISON STUDY: Chest CT September 02, 2022. Chest radiograph March 09, 2023. FINDINGS: Lung volumes are mildly diminished. There is no pneumothorax. No definite pleural effusion is present. There is moderate cardiomegaly. Interstitial prominence is noted, accentuated on this hyp oventilatory study. No definite consolidation. IMPRESSION: Moderate cardiomegaly. Apparent pulmonary vascular congestion which could be due to a hyp oventilatory study. ACT 112: Negative or not required by law. Electronically signed by: Vikram Angel M.D. 09/15/2023 3:28 PM
[2023-09-15 15:34] LABS: Albumin Globulin Ratio 0.9 (0.9-2); Albumin Level 3.6 gm/dl (3.4-5.0); BUN Creatinine Ratio 24.9 (10-20); Bilirubin,Total 3.8 mg/dl (0.2-1.0); Creatinine Clr Calc Pharmacy 39.6 ml/min; Est GFR (Non-African American) 29.3 ml/min; Globulin 4.2 gm/dl (2.5-4.0); Potassium 4.1 mmol/L (3.5-5.1); Total Protein 7.8 gm/dl (6.0-8.3)
[2023-09-15 15:40] LABS: Troponin I High Sensitivity 12.4 pg/ml (0-20)
--- NOTE | 2023-09-15 16:38 | CT Scan Report ---
CT OF THE HEAD WITHOUT CONTRAST CLINICAL HISTORY: Altered mental status. COMPARISON STUDY: No previous studies for comparison. CT DOSE: 703.85 mGy.cm TECHNIQUE: Helical axial images of the head were obtained without IV contrast. Automated exposure con trol was utilized for the study. A dose lowering technique was utilized adhering to the principles o f ALARA. FINDINGS: No acute intracranial hemorrhage, midline shift or mass effect is present. White matter hyp odensity suggests small vessel disease. The ventricular system is unremarkable. The basal cisterns ar e patent. No extra-axial collections are present. There are no findings to suggest acute dural sinus thrombosis or acute territorial infarct. No significant calvarial abnormalities are present. IMPRESSION: No acute intracranial findings. ACT 112: Negative or not required by law. Electronically signed by: Vikram Angel M.D. 09/15/2023 4:37 PM
[2023-09-15 17:36] LABS: INR 1.4 (0.9-1.1); Prothrombin Time 14.7 Seconds (9.0-12.0)
[2023-09-15] MEDS ORDERED: LACTULOSE SYRUP 30 GM/45 ML UDP PO STA (18:05)
[2023-09-15 18:16] LABS: Appearance Urine Clear (Clear); Bacteria Urine Automated Negative (Negative); Bilirubin Urine Negative (Negative); Blood Urine Negative (Negative); Color Urine Yellow; Glucose Urine UA Negative (Negative); Ketones Urine Negative (Negative); Leukocyte Esterase Urine 2+ (Negative); Nitrite Urine Negative (Negative); Protein Urine Negative (Negative); RBC Urine Automated 0-4 /hpf (0-4); Specific Gravity Urine 1.011 (1.000-1.030); Urobilinogen Urine Negative (Negative); WBC Urine Automated >30 /hpf (0-5); pH Urine 6.5 (4.5-7.5)
--- NOTE | 2023-09-15 18:35 | History & Physical Report ---
Date of Service September 15, 2023 Assessment & Plan (1) Altered mental status: (2) Increased ammonia level: (3) History of malignant neoplasm of appendix: (4) Ulcerative colitis: (5) Acute kidney injury superimposed on CKD: (6) Cirrhosis: (7) PAD (peripheral artery disease): (8) CML (chronic myelocytic leukemia): (9) Atrial flutter: (10) GERD (gastroesophageal reflux disease): (11) Chronic kidney disease, stage 3a: (12) Hepatic encephalopathy: Plan Hepatic encephalopathy/confusion and disorientation- Ammonia level 145 on admission No signs of active infection contributing to the cause Family reports that the patient had stopped taking lactulose, which is the likely cause of his elevated ammonia level and encephalopathy Resume lactulose 3 times daily as before, and continue rifaximin Follow serial CBC with differential, chemistry profile, ammonia level, magnesium Follow urine cultures and blood cultures Patient did receive a single dose of ceftriaxone 2 g IV from the ED, and will hold any further dosing at this time Acute kidney injury superimposed on CKD- Creatinine 2.25, with base 1.42 Temporarily hold Bumex 2 mg twice daily and spironolactone 100 mg daily Gentle rehydration with normal saline at 60 mils per hour x1 L Follow serial laboratories as noted above Of note, patient did have a dialysis port on the right side removed by Dr. Reynolds at [facility] sometime in April, and had a temporary dialysis catheter placed on the left which was then removed in May Ulcerative colitis- Continue mesalamine History of Present Illness Chief Complaint: The patient is brought to the emergency department due to increasing confusion and decreased responsiveness as noted by family members who are in attendance in the ED this evening. If they are feeling that he had stopped taking his lactulose and they were concerned about the possibility of increased ammonia causing his symptoms Primary Care Provider: Francia Ricardo DO The patient is a 68-year-old male with a past medical history including malignant neoplasm of the appendix, ulcerative colitis, SVT, ANNA on CKD, cirrhosis, chronic venous insufficiency, PAD, CML, hypothyroidism, hypertension, atrial flutter, GERD and CKD stage IIIa. His family reports that he had been not taking his lactulose as directed, but they were able to get 3 doses in him yesterday and 1 this morning, but with worsening symptoms, they called EMS who brought him to the ED for assessment. They had noted no specific symptoms as far as respiratory difficulties, urinary or GI problems. He has had treatment for a left foot infection, and presently has an Unna boot that he is wearing, getting changed every Friday. The patient himself is not able to contribute significantly to HPI or review of systems due to confusion Allergies Allergy/AdvReac Type Severity Reaction Status Date / Time bee venom protein (honey bee) Allergy Severe DYSPNEA;SWE Verified 09/15/23 17:24 LLING latex Allergy Intermediate Rash Verified 09/15/23 17:24 Penicillins Allergy Unknown HAPPENED Verified 09/15/23 17:24 A CHILD Home Medications Medication Instructions Recorded Confirmed Type epinephrine 0.3 mg/0.3 mL 0.3 mg (0.3 mL) IM Q10M PRN 08/06/21 09/15/23 Rx injection, auto-injector (EpiPen anaphylaxis #2 ea 2-Sb) triamcinolone acetonide 0.1 % 1 applic topical DAILY PRN Skin 02/08/22 09/15/23 Rx topical ointment Irritation #80 grams menthol 0.44 %-zinc oxide 20.6 % 1 applic EXT DIRECTED 09/17/22 09/15/23 History topical ointment (Calmoseptine) magnesium oxide 400 mg (241.3 mg 400 mg PO BID #60 tabs 01/28/23 09/15/23 Rx magnesium) tablet cholecalciferol (vitamin D3) 25 3,000 unit PO QAM #0 caps 03/08/23 09/15/23 Rx mcg (1,000 unit) capsule folic acid 1 mg tablet 1 mg PO QAM #30 tabs 03/08/23 09/15/23 Rx lactulose 10 gram/15 mL (15 mL) 30 g (45 mL) PO TID #750 mL 03/31/23 09/15/23 Rx oral solution levothyroxine 137 mcg tablet 137 mcg PO QPM #90 tabs 03/31/23 09/15/23 Rx mesalamine 0.375 gram 1.5 g PO QDL #360 caps 03/31/23 09/15/23 Rx capsule,extended release 24 hr rifaximin 550 mg tablet (Xifaxan) 550 mg PO BID #180 tabs 03/31/23 09/15/23 Rx spironolactone 100 mg tablet 100 mg PO QAM #90 tabs 07/22/23 09/15/23 Rx bumetanide 2 mg tablet 2 mg PO BID #180 tabs 08/07/23 09/15/23 Rx allopurinol 300 mg tablet 300 mg PO DAILY #90 tabs 09/15/23 09/15/23 Rx metoprolol succinate 25 mg 12.5 mg PO DAILY 09/15/23 09/15/23 History tablet,extended release 24 hr Past Med/Surg History Medical History (Updated 09/16/23 @ 01:57 by Gilberto Tee MD) Anasarca Anemia Atrial flutter 10/02/2020: Ablation of typical right atrial isthmus dependent flutter. [facility] Bacteremia Chronic kidney disease, stage 3a follows with Dr. 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 Ulcerative colitis Venous ulcers of both lower extremities Vitamin D deficiency Volume overload Surgical History (Updated 09/11/23 @ 19:46 by Francia Ricardo DO) H/O hernia repair (12/04/12) H/O laparoscopy H/O left knee surgery H/O lymph node excision (~2011) 36 total H/O right hemicolectomy (~2011) 36 lymph nodes removed as well History of appendectomy History of colonoscopy (2014) History of esophagogastroduodenoscopy (EGD) History of removal of Port-a-Cath History of tooth extraction S/P ablation of atrial fibrillation Status post ablation of atrial flutter (12/04/12) 2019 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) Family History Grandmother (Paternal) Colorectal cancer Father Myocardial infarction Prostate cancer Denies family history of Ovarian cancer Dementia Breast cancer Social History Smoking Status: Never smoker Second Hand Exposure: No; Do You Dip or Chew Tobacco: No; Tobacco Cessation Education Requested by Patient: No Hx Alcohol Use: No Hx Substance Use: No Preferred Language: Divehi Communication Ability: Impaired Communication Ability Comment: Altered Visual Impairment: Limited Hearing Ability: Normal Java J2Ee Lead Required: No Beliefs That Will Affect Care: Mormonism marital status: Current Living Situation: Spouse Current Living Situation Comment: Lives with who has her own healthcare issues 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 How many Children do You have: 2 Feels Safe at Home: Yes Safety Concerns: Feels Safe At This Time Childhood Exposure to Second-Hand Smoke: No Diet: low salt and other Diet Comment: 2000 cc fluid restriction during the past year weight has: increased > 10 lbs Dental Care, Regularly: Yes Physical Activity Frequency: Daily Seatbelt Use: always Sunscreen Use: Yes Assistive Devices: None Review of Systems Review of Systems: The patient is not able to contribute significantly to HPI or review of systems due to confusion, and information is supplied by family members as noted who are in attendance Physical Exam Physical Exam: The patient is lethargic, confused and disoriented, normocephalic and atraumatic, lying in bed and in no acute distress. HEENT--PERRL, EOMI, mucous membranes and oropharynx dry. Neck--supple. No JVD. No bruits. Thyroid normal, trachea midline, no adenopathy. Heart--normal S1 and S2. No murmurs, rubs or gallops. Lungs--clear bilaterally, no respiratory distress, no accessory muscle use. Abdomen--normal bowel sounds and soft. Nontender. Nondistended. Obese Extremities--no significant edema. Left lower extremity Unna boot removed with no signs of active infection. Dermatologic--normal skin turgor, normal color, no abnormal lymph nodes, no rash. Neurologic--cranial nerves II through XII grossly intact. Rheumatologic--limited exam due to mental state Psychiatric--lethargic, confused and disoriented. Results & Data Results & Data Vital Signs (Past 12 Hours) Vital Signs Temp Pulse Resp BP Pulse Ox O2 Del Method O2 Flow Rate 09/15/23 17:30 74 21 95 09/15/23 17:30 127/58 L 09/15/23 17:00 74 15 94 09/15/23 17:00 138/59 L 09/15/23 16:30 77 22 100 09/15/23 16:30 131/60 09/15/23 16:20 87 18 09/15/23 16:00 136/58 L 09/15/23 15:46 88 17 09/15/23 15:30 89 15 96 09/15/23 15:30 132/62 09/15/23 15:00 86 19 97 09/15/23 15:00 143/57 H 09/15/23 14:58 84 16 98 09/15/23 16:01 98 09/15/23 14:58 86 09/15/23 14:36 97 Room Air 0 09/15/23 14:36 36.8 C 86 22 134/61 98 Room Air Laboratory Results Laboratory Results WBC 11.47 K/ul (4.8-10.8) H 09/15/23 14:43 RBC 2.58 M/uL (4.70-6.10) L 09/15/23 14:43 Hgb 8.7 g/dl (14.0-18.0) L 09/15/23 14:43 Hct 24.6 % (42.0-52.0) L 09/15/23 14:43 MCV 95.3 fL (80.0-100.0) 09/15/23 14:43 MCH 33.7 pg (25.0-34.0) 09/15/23 14:43 MCHC 35.4 g/dL (32.0-36.0) 09/15/23 14:43 RDW Std Deviation 53.0 fL (36.4-46.3) H 09/15/23 14:43 RDW Coeff of Howie 15.5 % (11.5-14.5) H 09/15/23 14:43 Plt Count 124 K/uL (130-400) L 09/15/23 14:43 MPV 10.2 fL (9.4-12.4) 09/15/23 14:43 Immature Gran % (Auto) 1.1 % 09/15/23 14:43 Neut % (Auto) 69.0 % 09/15/23 14:43 Lymph % (Auto) 18.7 % 09/15/23 14:43 [place] % (Auto) 8.2 % 09/15/23 14:43 Eos % (Auto) 2.3 % 09/15/23 14:43 Baso % (Auto) 0.7 % 09/15/23 14:43 Neut # (Auto) 7.92 K/uL (1.40-6.50) H 09/15/23 14:43 Lymph # (Auto) 2.14 K/uL (1.20-3.40) 09/15/23 14:43 [place] # (Auto) 0.94 K/uL (0.11-0.59) H 09/15/23 14:43 Eos # (Auto) 0.26 K/uL (0.00-0.50) 09/15/23 14:43 Baso # (Auto) 0.08 K/uL (0.00-0.20) 09/15/23 14:43 Immature Gran # (Auto) 0.13 K/uL (0.01-0.20) 09/15/23 14:43 PT 14.7 Seconds (9.0-12.0) H 09/15/23 16:58 INR 1.4 (0.9-1.1) H 09/15/23 16:58 Sodium 129 mmol/L (136-145) L 09/15/23 14:43 Potassium 4.1 mmol/L (3.5-5.1) 09/15/23 14:43 Chloride 91 mmol/L (98-107) L 09/15/23 14:43 Carbon Dioxide 32 mmol/L (21-32) 09/15/23 14:43 Anion Gap 6 (3-11) 09/15/23 14:43 BUN 56 mg/dl (6-23) H 09/15/23 14:43 Creatinine 2.25 mg/dl (0.6-1.4) H 09/15/23 14:43 Est Cr Clr Drug Dosing 39.6 ml/min 09/15/23 14:43 Est GFR ( Amer) 34.0 ml/min 09/15/23 14:43 Est GFR (Non-Af Amer) 29.3 ml/min 09/15/23 14:43 BUN/Creatinine Ratio 24.9 (10-20) H 09/15/23 14:43 Glucose 139 mg/dl (70-99(Fasting)) H 09/15/23 14:43 Calcium 11.0 mg/dl (8.6-10.3) H 09/15/23 14:43 Total Bilirubin 3.8 mg/dl (0.2-1.0) H 09/15/23 14:43 AST 47 U/L (13-39) H 09/15/23 14:43 ALT 27 U/L (7-52) 09/15/23 14:43 Alkaline Phosphatase 71 U/L (34-104) 09/15/23 14:43 Ammonia 145.0 umol/L (18-72) H 09/15/23 16:58 Troponin I High Sens 12.4 pg/ml (0-20) 09/15/23 14:43 Total Protein 7.8 gm/dl (6.0-8.3) 09/15/23 14:43 Albumin 3.6 gm/dl (3.4-5.0) 09/15/23 14:43 Globulin 4.2 gm/dl (2.5-4.0) H 09/15/23 14:43 Albumin/Globulin Ratio 0.9 (0.9-2) 09/15/23 14:43 Lipase 44 U/L (11-82) 09/15/23 14:43 Urine Color Yellow 09/15/23 18:00 Urine Appearance Clear (Clear) 09/15/23 18:00 Urine pH 6.5 (4.5-7.5) 09/15/23 18:00 Ur Specific [place] 1.011 (1.000-1.030) 09/15/23 18:00 Urine Protein Negative (Negative) 09/15/23 18:00 Urine Glucose (UA) Negative (Negative) 09/15/23 18:00 Urine Ketones Negative (Negative) 09/15/23 18:00 Urine Blood Negative (Negative) 09/15/23 18:00 Urine Nitrite Negative (Negative) 09/15/23 18:00 Urine Bilirubin Negative (Negative) 09/15/23 18:00 Urine Urobilinogen Negative (Negative) 09/15/23 18:00 Ur Leukocyte Esterase 2+ (Negative) H 09/15/23 18:00 Urine WBC (Auto) >30 /hpf (0-5) H 09/15/23 18:00 Urine RBC (Auto) 0-4 /hpf (0-4) 09/15/23 18:00 U Hyaline Cast (Auto) 5-10 /lpf (0-5) H 09/15/23 18:00 U Epithel Cells (Auto) 10-20 /lpf (0-5) H 09/15/23 18:00 Urine Bacteria (Auto) Negative (Negative) 09/15/23 18:00 Urine Yeast Budding w/ Hyphae (None Prsent) A 09/15/23 18:00 SARS-CoV-2, RNA, NAAT NEGATIVE (NEGATIVE) 09/15/23 14:[address] 09/15/23 14:47 CT OF THE HEAD WITHOUT CONTRAST CLINICAL HISTORY: Altered mental status. COMPARISON STUDY: No previous studies for comparison. CT DOSE: 703.85 mGy.cm TECHNIQUE: Helical axial images of the head were obtained without IV contrast. Automated exposure control was utilized for the study. A dose lowering technique was utilized adhering to the principles of ALARA. FINDINGS: No acute intracranial hemorrhage, midline shift or mass effect is pr esent. White matter hypodensity suggests small vessel disease. The ventricular system is unremarkable. The basal cisterns are patent. No extra-axial collections are present. There are no findings to suggest acute dural sinus thrombosis or acute territorial infarct. No significant calvarial abnormalities are present. IMPRESSION: No acute intracranial findings. ACT 112: Negative or not required by law. Electronically signed by: Vikram Angel M.D. 09/15/2023 4:37 PM Chest X-Ray 09/15/23 14:48 XR chest 1V portable CLINICAL HISTORY: Chest pain, nonspecific COMPARISON STUDY: Chest CT September 02, 2022. Chest radiograph March 09, 2023. FINDINGS: Lung volumes are mildly diminished. There is no pneumothorax. No definite pleural effusion is present. There is moderate cardiomegaly. Interstitial prominence is noted, accentuated on this hypoventilatory study. No definite consolidation. IMPRESSION: Moderate cardiomegaly. Apparent pulmonary vascular congestion which could be due to a hypoventilatory study. ACT 112: Negative or not required by law. Electronically signed by: Vikram Angel M.D. 09/15/2023 3:28 PM Abdomen/Pelvis CT 09/15/23 18:22 Exam(s): CT ABDOMEN + PELVIS Without Contrast EXAM: CT Abdomen and Pelvis Without Intravenous Contrast CLINICAL HISTORY: Reason for exam: hepatic encephalopathy, cirrhosis. TECHNIQUE: Axial computed tomography images of the abdomen and pelvis without intravenous contrast. CTDI is 27.21 mGy and DLP is 1915.88 mGy-cm. Automated exposure control was utilized for the study. A dose lowering technique was utilized adhering to the principles of ALARA. COMPARISON: No relevant prior studies available. FINDINGS: Lung bases: Atelectasis at the lung bases. ABDOMEN: Liver: Unremarkable. No focal hepatic lesion. Gallbladder and bile ducts: Cholelithiasis. No ductal dilation. Pancreas: Unremarkable. No ductal dilation. Spleen: Mild splenomegaly. Adrenals: Unremarkable. No mass. Kidneys and ureters: Unremarkable. No hydronephrosis or nephrolithiasis. Stomach and bowel: Diverticulosis, without acute diverticulitis. No small bowel obstruction. No free intraperitoneal air. PELVIS: Appendix: No findings to suggest acute appendicitis. Bladder: Unremarkable. No stones. Reproductive: Calcified seminal vesicles, correlate for diabetes. ABDOMEN and PELVIS: Intraperitoneal space: Unremarkable. No free air. No significant fluid collection. Bones/joints: Degenerative changes of the spine. Bilateral hip arthroplasties. Mild collection anterior to the RIGHT hip arthroplasty. No acute fracture. No dislocation. Soft tissues: Unremarkable. Vasculature: Atherosclerotic changes of the aorta. No abdominal aortic aneurysm. Lymph nodes: Unremarkable. No enlarged lymph nodes. IMPRESSION: 1. No hydronephrosis or nephrolithiasis. 2. Cholelithiasis. 3. Bilateral hip arthroplasties. Mild collection anterior to the RIGHT hip arthroplasty. 4. Diverticulosis, without acute diverticulitis. No small bowel obstruction. No free intraperitoneal air. Electronically signed by: Ever Leon MD 09/15/23 20:01 PM Code Status & VTE Plan Code Status Full code PG Care Time/CCT Total # of Minutes Spent Total Time Spent with Patient: Total time spent is greater than 50% in coordination of care (as documented) at patient's floor/unit and/or counseling patient: Coding Level of Care Code 28567 INT INP/OBS CARE 3/75MIN Diagnoses Altered mental status R41.82 Increased ammonia level R79.89 History of malignant neoplasm of appendix Z85.09 Ulcerative colitis K51.90 Acute kidney injury superimposed on CKD N17.9; N18.9 Cirrhosis K74.60 PAD (peripheral artery disease) I73.9 CML (chronic myelocytic leukemia) C92.10 Atrial flutter I48.92 GERD (gastroesophageal reflux disease) K21.9 Chronic kidney disease, stage 3a N18.31 Hepatic encephalopathy K76.82
--- NOTE | 2023-09-15 20:02 | CT Scan Report ---
Exam(s): CT ABDOMEN + PELVIS Without Contrast EXAM: CT Abdomen and Pelvis Without Intravenous Contrast CLINICAL HISTORY: Reason for exam: hepatic encephalopathy, cirrhosis. TECHNIQUE: Axial computed tomography images of the abdomen and pelvis without intravenous contrast. CTDI is 27.21 mGy and DLP is 1915.88 mGy-cm. Automated exposure control was utilized for the study. A dose lowering technique was utilized adhering to the principles of ALARA. COMPARISON: No relevant prior studies available. FINDINGS: Lung bases: Atelectasis at the lung bases. ABDOMEN: Liver: Unremarkable. No focal hepatic lesion. Gallbladder and bile ducts: Cholelithiasis. No ductal dilation. Pancreas: Unremarkable. No ductal dilation. Spleen: Mild splenomegaly. Adrenals: Unremarkable. No mass. Kidneys and ureters: Unremarkable. No hydronephrosis or nephrolithiasis. Stomach and bowel: Diverticulosis, without acute diverticulitis. No small bowel obstruction. No free intraperitoneal air. PELVIS: Appendix: No findings to suggest acute appendicitis. Bladder: Unremarkable. No stones. Reproductive: Calcified seminal vesicles, correlate for diabetes. ABDOMEN and PELVIS: Intraperitoneal space: Unremarkable. No free air. No significant fluid collection. Bones/joints: Degenerative changes of the spine. Bilateral hip arthroplasties. Mild collection anterior to the RIGHT hip arthroplasty. No acute fracture. No dislocation. Soft tissues: Unremarkable. Vasculature: Atherosclerotic changes of the aorta. No abdominal aortic aneurysm. Lymph nodes: Unremarkable. No enlarged lymph nodes. IMPRESSION: 1. No hydronephrosis or nephrolithiasis. 2. Cholelithiasis. 3. Bilateral hip arthroplasties. Mild collection anterior to the RIGHT hip arthroplasty. 4. Diverticulosis, without acute diverticulitis. No small bowel obstruction. No free intraperitoneal air. Electronically signed by: Ever Leon MD 09/15/23 20:01 PM
[2023-09-15] MEDS ORDERED: cefTRIAXone SODIUM 2,000 MG/50 ML BAG IV STA (20:48)
[2023-09-15] MEDS ORDERED: ONDANSETRON INJ 2 MG/ML 2 ML VIAL IV PRN (21:37)
[2023-09-15] MEDS ORDERED: LACTULOSE SYRUP 30 GM/45 ML UDP PO SCH (21:37)
[2023-09-15] MEDS ORDERED: SODIUM CHLORIDE 0.9% 1,000 ML IV SCH (21:37)
[2023-09-15] MEDS: LEVOTHYROXINE SODIUM 137 MCG TABLET PO SCH (23:18)
[2023-09-15] MEDS: MAGNESIUM OXIDE 400 MG TAB PO SCH (23:25)
[2023-09-15] MEDS: rifAXIMin 550 MG TABLET PO SCH (23:25)
[2023-09-16 04:43] LABS: Basophils # (auto) 0.07 K/uL (0.00-0.20); Basophils % (auto) 0.6 %; Eosinophils % (auto) 1.7 %; Hematocrit (blood only) 23.9 % (42.0-52.0); Hemoglobin 8.5 g/dl (14.0-18.0); Immature Granulocytes % (auto) 0.9 %; Lymphocytes # (auto) 1.97 K/uL (1.20-3.40); Mean Corpuscular Hgb Conc 35.6 g/dL (32.0-36.0); Mean Corpuscular Volume 95.6 fL (80.0-100.0); Mean Platelet Volume 10.3 fL (9.4-12.4); Monocytes # (auto) 1.12 K/uL (0.11-0.59); Monocytes % (auto) 9.7 %; Neutrophils # (auto) 8.14 K/uL (1.40-6.50); Neutrophils % (auto) 70.1 %; Platelet Count 121 K/uL (130-400); RDW Coefficient of Variation 15.6 % (11.5-14.5); RDW Standard Deviation 53.1 fL (36.4-46.3)
[2023-09-16 04:44] LABS: Albumin Globulin Ratio 0.9 (0.9-2); Albumin Level 3.4 gm/dl (3.4-5.0); BUN Creatinine Ratio 26.8 (10-20); Bilirubin,Total 3.8 mg/dl (0.2-1.0); Calcium 10.2 mg/dl (8.6-10.3); Creatinine Clr Calc Pharmacy 43.5 ml/min; Est GFR (African American) 40.6 ml/min; Globulin 3.8 gm/dl (2.5-4.0); Magnesium 2.6 mg/dl (1.7-2.4); Potassium 3.7 mmol/L (3.5-5.1); Total Protein 7.2 gm/dl (6.0-8.3)
[2023-09-16 04:55] LABS: INR 1.4 (0.9-1.1); Partial Thromboplastin Ratio 1.1; Partial Thromboplastin Time 30.7 Seconds (21.0-31.0); Prothrombin Time 14.9 Seconds (9.0-12.0)
[2023-09-16] MEDS: LACTULOSE SYRUP 30 GM/45 ML UDP PO SCH ×3 (06:00→20:12)
[2023-09-16] MEDS: FOLIC ACID 1 MG TAB PO SCH (09:03)
[2023-09-16] MEDS: METOPROLOL SUCC 25MG EXT REL TAB PO SCH (09:04)
[2023-09-16] MEDS: CHOLECALCIFEROL 1,000 UNITS 25 MCG TAB PO SCH (09:05)
[2023-09-16] MEDS: MAGNESIUM OXIDE 400 MG TAB PO SCH ×2 (09:06→20:12)
[2023-09-16] MEDS: allopurinoL 300 MG TAB PO SCH (09:06)
[2023-09-16] MEDS: rifAXIMin 550 MG TABLET PO SCH ×2 (10:04→20:12)
[2023-09-16] MEDS ORDERED: PANTOprazole 40 MG in SYRINGE 0 ML IV SCH (11:00)
--- NOTE | 2023-09-16 14:40 | Hospitalist Progress Note ---
Date of Service September 16, 2023 Assessment & Plan (1) Hepatic encephalopathy: Plan: Worsening over the last 2 days prior to admission. reports pt may be noncompliant with lactulose. Last BM 2 days prior to admission Also he had been taking benadryl for itching which may be contributing With leukocytosis but no fever. With harsh heart murmur and h/o wound infections of legs--> check Blood cxs UA abnormal, Ur cx with pin point growth Ammonia level 145 on admission and now up further to 163 Resume lactulose 3 times daily as before, and continue rifaximin Add lactulose enemas if not taking po Follow serial CBC with differential, chemistry profile, ammonia level, magnesium Follow urine cultures and blood cultures Patient did receive a single dose of ceftriaxone 2 g IV from the ED, and will hold any further dosing at this time Monitor for improvement once bowels are moving 2-3 times per day (2) Acute kidney injury superimposed on CKD: Plan: with radio station engineer 2.25 on admission, 2/2 prerenal, poor po intake last 2 days plus continued on aldactone and bumex diuretics on hold and received 1 L NS--> radio station engineer improved to 1.9 dc IVFs has a h/o temporary HD earlier this year follows with Nephrology follow BMP (3) Cirrhosis: Plan: known cirrhosis, follows with [facility] Hepatology LFTs elevated, INR 1.4, plts mildly low all consistent with previous Na+ a bit lower on arrival due to hypovolemia--> now improved with IVFs continue rifaximin, lactulose as above monitor labs avoid benadryl for itching as caused encephalopathy (4) Murmur: Plan: with h/o mild on ECHO from 01/2023 but murmur quite loud here possibly due to worsening anemia? check ECHO, blood cultures (5) CML (chronic myelocytic leukemia): Plan: not currently getting treatment for this follows with oncology (6) Atrial flutter: Plan: with a h/o ablation for such in NSR here (7) Ulcerative colitis: Plan: on mesalamine, has upcoming scope in next few months (8) GERD (gastroesophageal reflux disease): Plan: continue PPI (9) Chronic kidney disease, stage 3a: Plan: with a h/o needing HD earlier in 2022 radio station engineer baseline around 1.8 with ANNA as above now resolving -Avoid nephrotoxins -renally dose meds when appropriate -follow BMP (10) Anemia: Plan: hgb low at 8.5, down from 10 about two weeks prior- thought to be from h/o chronic intermittent bleeding, folate deficiency, and anemia of chronic disease has UC and reports dark stool earlier this week stable today since admission recent Fe studies, B12, folate all normal follow CBC, monitor for bleeding has upcoming EGD/colonoscopy with GI continue PPI (11) Hypothyroidism: Plan: TSH 4.4 in 04/2023 continue home LT4 (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 (13) Lymphedema: Plan: uses compression and lymphedema therapy wound care consult for cracks in skin of legs and severe ichthyosis Plan DVT proph-hold chemical means due to anemia and possible GIB Dispo-continued stay, will need PT/OT when able to participate Discussed care with on phone on 09/16 Admission and Anticipated Discharge Date Admission Date: September 15, 2023 Subjective Pt seen in early afternoon and was still lethargic but would wake up, was confused. Did not know where he was, frequently drifted back to sleep. Had not yet had a BM but had taken 2 doses of lactulose. He then later had a large loose stool prior to being given lactulose enema. He denied pain. He ate minimally today Tele with NSR, PACs, rates in 80s Physical Exam Constitutional: WD/WN, vitals as above Neck: trachea midline, no thyromegaly Respiratory: normal respiratory effort, lungs clear to auscultation Cardiovascular: Rate/Rhythm: regular rate and regular rhythm Heart Sounds: + murmur (3/6 systolic murmur at RUSB) Extremities: + edema (2+ woody edema with thickened cracked skin legs bilat) Gastrointestinal (Abdomen): normal bowel sounds, soft, nontender, no hepatosplenomegaly Musculoskeletal: Extremities: no cyanosis and no clubbing Neurologic: moves all extremities and + confused; no focal motor deficits and + not awake Results & Data Results & Data Vital Signs (Past 12 Hours) Vital Signs Temp Pulse Pulse Pulse Resp BP Pulse Ox 09/16/23 11:49 36.5 C 82 18 138/58 L 97 09/16/23 07:40 36.6 C 90 16 133/61 97 09/16/23 07:33 09/16/23 06:00 82 09/16/23 04:21 36.9 C 94 H 20 132/51 L 95 O2 Del Method 09/16/23 11:49 Room Air 09/16/23 07:40 Room Air 09/16/23 07:33 Room Air 09/16/23 06:00 09/16/23 04:21 Room Air Laboratory Results CBC, CMP, NH3,troponin reviewed INR, magnesium, UA, Ur cx reviewed PG Care Time/CCT Total # of Minutes Spent Total Time Spent with Patient: Total time spent is greater than 50% in coordination of care (as documented) at patient's floor/unit and/or counseling patient: Coding Level of Care Code 93927 SUB INP/OBS CARE 3/50MIN Diagnoses Hepatic encephalopathy K76.82 Acute kidney injury superimposed on CKD N17.9; N18.9 Cirrhosis K74.60 Murmur R01.1 CML (chronic myelocytic leukemia) C92.10 Atrial flutter I48.92 Ulcerative colitis K51.90 GERD (gastroesophageal reflux disease) K21.9 Chronic kidney disease, stage 3a N18.31 Anemia D64.9 Anemia type: other cause Hypothyroidism E03.9 History of malignant neoplasm of appendix Z85.09 Lymphedema I89.0 (10) Anemia Anemia type: other cause
[2023-09-16] MEDS ORDERED: LACTULOSE 200GM/700ML WTR ENEMA PR SCH (15:00)
[2023-09-16] MEDS: LEVOTHYROXINE SODIUM 137 MCG TABLET PO SCH (20:12)
[2023-09-17 05:18] LABS: Calcium 10.2 mg/dl (8.6-10.3)
[2023-09-17 05:46] LABS: Albumin Globulin Ratio 0.9 (0.9-2); Albumin Level 3.5 gm/dl (3.4-5.0); BUN Creatinine Ratio 24.4 (10-20); Bilirubin,Total 4.5 mg/dl (0.2-1.0); Creatinine Clr Calc Pharmacy 46.7 ml/min; Est GFR (African American) 44.5 ml/min; Est GFR (Non-African American) 38.4 ml/min; Globulin 3.7 gm/dl (2.5-4.0); Magnesium 2.7 mg/dl (1.7-2.4); Potassium 3.9 mmol/L (3.5-5.1); Total Protein 7.2 gm/dl (6.0-8.3)
[2023-09-17 05:47] LABS: Basophils # (auto) 0.09 K/uL (0.00-0.20); Basophils % (auto) 0.7 %; Eosinophils # (auto) 0.28 K/uL (0.00-0.50); Eosinophils % (auto) 2.2 %; Hematocrit (blood only) 24.3 % (42.0-52.0); Hemoglobin 8.5 g/dl (14.0-18.0); Immature Granulocytes # (auto) 0.14 K/uL (0.01-0.20); Immature Granulocytes % (auto) 1.1 %; Lymphocytes # (auto) 1.94 K/uL (1.20-3.40); Lymphocytes % (auto) 15.5 %; Mean Corpuscular Hemoglobin 33.7 pg (25.0-34.0); Mean Corpuscular Volume 96.4 fL (80.0-100.0); Mean Platelet Volume 10.5 fL (9.4-12.4); Monocytes # (auto) 1.21 K/uL (0.11-0.59); Monocytes % (auto) 9.6 %; Neutrophils # (auto) 8.88 K/uL (1.40-6.50); Neutrophils % (auto) 70.9 %; Platelet Count 130 K/uL (130-400); RDW Coefficient of Variation 15.7 % (11.5-14.5); Red Blood Count 2.52 M/uL (4.70-6.10); White Blood Count 12.54 K/ul (4.8-10.8)
[2023-09-17] MEDS ORDERED: PANTOprazole 40 MG TAB PO SCH (09:00)
[2023-09-17] MEDS: LACTULOSE SYRUP 30 GM/45 ML UDP PO SCH ×3 (09:35→20:45)
[2023-09-17] MEDS: METOPROLOL SUCC 25MG EXT REL TAB PO SCH (09:36)
[2023-09-17] MEDS: allopurinoL 300 MG TAB PO SCH (09:36)
[2023-09-17] MEDS: CHOLECALCIFEROL 1,000 UNITS 25 MCG TAB PO SCH (09:36)
[2023-09-17] MEDS: rifAXIMin 550 MG TABLET PO SCH ×2 (09:36→20:45)
[2023-09-17] MEDS: FOLIC ACID 1 MG TAB PO SCH (09:36)
[2023-09-17] MEDS: MAGNESIUM OXIDE 400 MG TAB PO SCH ×2 (09:37→20:46)
[2023-09-17 12:38] LABS: Hematocrit (blood only) 22.7 % (42.0-52.0); Mean Corpuscular Hemoglobin 33.9 pg (25.0-34.0); Mean Corpuscular Hgb Conc 35.2 g/dL (32.0-36.0); Mean Corpuscular Volume 96.2 fL (80.0-100.0); Mean Platelet Volume 10.4 fL (9.4-12.4); Platelet Count 124 K/uL (130-400); RDW Standard Deviation 54.9 fL (36.4-46.3); Red Blood Count 2.36 M/uL (4.70-6.10); White Blood Count 11.94 K/ul (4.8-10.8)
--- NOTE | 2023-09-17 12:43 | Hospitalist Progress Note ---
Date of Service September 17, 2023 Assessment & Plan (1) Hepatic encephalopathy: Plan: Metabolic encephalopathyEvidenced by ANNA, hyponatremia, hypomagnesemia, and possible UTI with hepatic encephalopathy Worsening over the last 2 days prior to admission. reports pt may be noncompliant with lactulose. Last BM 2 days prior to admission Also he had been taking benadryl for itching which may be contributing With leukocytosis but no fever. With harsh heart murmur and h/o wound infections of legs--> checked Blood cxs-NGTD UA abnormal, Ur cx with Mercedes albicans, no need to treat Ammonia level 145 on admission and then up further to 163. Moved bowels multiple times and NH3 down to 100, mentation slowly improving today, less confused -continue lactulose 3 times daily as before, and continue rifaximin -Follow CBC, chemistry profile, ammonia level, magnesium -Follow urine cultures and blood cultures -Patient did receive a single dose of ceftriaxone 2 g IV from the ED, and will hold any further dosing at this time -Monitor for improvement once bowels are moving 2-3 times per day -treated for dehydration with IVFs (2) Acute kidney injury superimposed on CKD: Plan: with percussion instrument tuner 2.25 on admission, 2/2 prerenal, poor po intake last 2 days plus continued on aldactone and bumex diuretics on hold and received 1 L NS--> percussion instrument tuner improved to 1.8 has a h/o temporary HD earlier this year follows with Nephrology follow BMP (3) GI bleed: Plan: reports a black stool at home, 2 days 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 Has never had EGD Consult GI to see about possible EGD_will follow and if hgb drops, will scope start PPI gtt follow CBC type and cross for 2 units blood, gave consent for blood transfusion and consent on chart (4) Anemia: Plan: hgb low at 8.5, down from 10 about two weeks prior- thought to be from h/o chronic intermittent bleeding, folate deficiency, and anemia of chronic disease has UC and reports dark stool earlier this week and another dark tarry stool here on 09/17 as above hgb slight drop to 8.0 recent Fe studies, B12, folate all normal follow CBC possible EGD, keep NPO after midnight but can have clears today continue PPI but convert to PPIV IV gtt (5) Cirrhosis: Plan: known cirrhosis, [facility] LFTs elevated further today, INR 1.4, plts mildly low all consistent with previous Na+ a bit lower on arrival due to hypovolemia--> now improved with IVFs continue rifaximin, lactulose as above monitor labs avoid benadryl for itching as caused encephalopathy Appreciate GI consult-check Abd US (6) Murmur: Plan: with h/o mild on ECHO from 01/2023 but murmur quite loud here possibly due to worsening anemia? checked ECHO-mild and mild AI, preserved EF Checked blood cultures-NGTD (7) CML (chronic myelocytic leukemia): Plan: not currently getting treatment for this follows with oncology (8) Atrial flutter: Plan: with a h/o ablation for such in NSR here (9) Ulcerative colitis: Plan: on mesalamine, has upcoming scope in next few months unclear who has seen him in the past for this condition GI consulted (10) GERD (gastroesophageal reflux disease): Plan: continue PPI (11) Chronic kidney disease, stage 3a: Plan: with a h/o needing HD earlier in 2022 percussion instrument tuner baseline around 1.8 with ANNA as above now resolved -Avoid nephrotoxins -renally dose meds when appropriate -follow BMP (12) Hypothyroidism: Plan: TSH 4.4 in 04/2023 continue home LT4 (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 (14) Lymphedema: Plan: uses compression and lymphedema therapy wound care consult for cracks in skin of legs and severe ichthyosis (15) Hyponatremia: Plan: Na low on arrival at 126 due to poor po intake in setting of diuretics now improved wo 140 with NS IVFs and holding diuretics restart diuretics likely in 1-2 days after po intake improves (16) Sacral decubitus ulcer: Plan: Pressure ulcer of buttock Stage 1 POA Wound care consult, offload pressure Plan DVT proph-hold chemical means due to anemia and possible GIB Dispo-continued stay, will need PT/OT when able to participate Discussed care with on phone on 09/17 Admission and Anticipated Discharge Date Admission Date: September 15, 2023 Subjective Pt seen twice today. Once in mid day after report from RN of a large black tarry stool. Pt was slightly improved with mentation and still frequently saying "yeah" to all questions but when redirected, was able to tell me he had some abdominal pain and pointed to mid abdomen. Seen again at end of day and he was sleeping but woke up easily and was more clear, able to answer some simple questions and seemed less confused. I discussed his care with GI. Tele with NSR, rates 90-100s Physical Exam Constitutional: WD/WN, vitals as above Neck: trachea midline, no thyromegaly Respiratory: normal respiratory effort, lungs clear to auscultation Cardiovascular: Rate/Rhythm: regular rate and regular rhythm Heart Sounds: + murmur (3/6 systolic murmur at RUSB) Extremities: + edema (2+ woody edema with thickened cracked skin legs bilat) Gastrointestinal (Abdomen): normal bowel sounds, soft, nontender, no hepatosplenomegaly Musculoskeletal: Extremities: no cyanosis and no clubbing Neurologic: moves all extremities and + confused; no focal motor deficits Results & Data Results & Data Vital Signs (Past 12 Hours) Vital Signs Temp Pulse Pulse Resp BP Pulse Ox O2 Del Method 09/17/23 11:32 36.8 C 91 H 18 163/69 H 100 Room Air 09/17/23 11:17 Room Air 09/17/23 07:59 36.9 C 91 H 18 156/64 H 98 Room Air 09/17/23 07:30 79 09/17/23 02:52 37.3 C 92 H 20 143/52 H 100 Room Air Laboratory Results CBC x 2, CMP, ammonia levels reviewed PG Care Time/CCT Total # of Minutes Spent Total Time Spent with Patient: Total time spent is greater than 50% in coordination of care (as documented) at patient's floor/unit and/or counseling patient: Coding Level of Care Code 34701 SUB INP/OBS CARE 3/50MIN Diagnoses Hepatic encephalopathy K76.82 Acute kidney injury superimposed on CKD N17.9; N18.9 GI bleed K92.2 Anemia D64.9 Anemia type: other cause Cirrhosis K74.60 Murmur R01.1 CML (chronic myelocytic leukemia) C92.10 Atrial flutter I48.92 Ulcerative colitis K51.90 GERD (gastroesophageal reflux disease) K21.9 Chronic kidney disease, stage 3a N18.31 Hypothyroidism E03.9 History of malignant neoplasm of appendix Z85.09 Lymphedema I89.0 Hyponatremia E87.1 Sacral decubitus ulcer L89.159 (4) Anemia Anemia type: other cause
[2023-09-17] MEDS ORDERED: SODIUM CHLORIDE 0.9% 250 ML IV PRN (12:45)
--- NOTE | 2023-09-17 13:21 | Gastrointestinal Consultation ---
Date of Consultation September 17, 2023 Assessment & Plan (1) Altered mental status: (2) Hepatic encephalopathy: (3) Cirrhosis: (4) Melena: Plan Add Protonix gtt given melena episode. Monitor H/H and monitor for further episodes of overt GI bleeding. No current clinical concern for variceal bleeding, but obviously will continue to monitor. Patient does have upcoming EGD planned with [facility] along with a colonoscopy. Given encephalopathy and leukocytosis there are concerns for other underlying processes. Patient has pending blood cultures given rash & worsening heart murmur along with leukocytosis. I would await these results as we continue to monitor his bleeding. His T bili is slightly above his baseline and while this could be related to whatever underlying process is occurring, could also consider ensuring there is no new biliary process since CT scan was obtained. Can obtain an US to assess today and make further recommendations based on that. Patient was not NPO today. While patient may benefit from an EGD given melena & anemia, the timing of this needs to occur when safest for patient. He will require ongoing cirrhosis management with his card cutter as an outpatient. Supervising Physician Co-Signing Physician Notes Agree with GIANFRANCO Mulligan as above Nursing reports a black liquid BM early this AM, no further BM's. Patient less confused and answering questions appropriately. Gen: Chronic ill appearing Abd: Soft, NT, ND, +BS Continue current therapy and supportive care Imaging studies pending Consider EGD during this hospitalization if needed. History of Present Illness Reason for Consultation: Cirrhosis, melena, anemia Attending Physician: Urvashi Murphy MD History of Present Illness Patient is a 68 yo male currently hospitalized with encephalopathy and PMH of right sided heart failure, appendiceal cancer, UC, SVT, lymphedema, CKD, PAD, CML, hypothyroidism, HTN, atrial flutter, trifasicular block, & GERD. The patient sees Dr. Luna of [facility] for his cirrhosis. Patient is apparently also diagnosed with Ulcerative Colitis and is managed on 5ASA therapy, however we have not managed this patient for this condition so I am unsure which GI group is taking care of this problem. It does appear he has both an EGD & colonoscopy scheduled for November 2023 with [facility]. The patient currently has been having worsening encephalopathy. Ammonia yesterd ay was 163. Today is 100. There is concern for noncompliance with the lactulose at home. He is managed on Xifaxan 550 mg BID as well. He takes Aldactone 100 mg daily. He has ongoing leukocytosis without a clear answer during this admission. Blood cultures are pending due to this finding and worsening heart murmur. Patient has a history of aortic stenosis. GI has been consulted during this admission due to the patient developing dark, loose stools. H/H presently 8.0/22.7. On 09/04, his hemoglobin was 10.0. His total bilirubin is 4.5, worse than his baseline which is around 2.5. MELD 22. AST 42, ALT 23. Alk phos 63. A CT abdomen/pelvis on 09/15/23 indicated the following: IMPRESSION: 1. No hydronephrosis or nephrolithiasis. 2. Cholelithiasis. 3. Bilateral hip arthroplasties. Mild collection anterior to the RIGHT hip arthroplasty. 4. Diverticulosis, without acute diverticulitis. No small bowel obstruction. No free intraperitoneal air. Patient is confused during my encounter today and was not able to contribute meaningful details. Allergies Allergy/AdvReac Type Severity Reaction Status Date / Time bee venom protein (honey bee) Allergy Severe DYSPNEA;SWE Verified 09/15/23 17:24 LLING latex Allergy Intermediate Rash Verified 09/15/23 17:24 Penicillins Allergy Unknown HAPPENED Verified 09/15/23 17:24 A CHILD Home Medications Medication Instructions Recorded Confirmed Type epinephrine 0.3 mg/0.3 mL 0.3 mg (0.3 mL) IM Q10M PRN 08/06/21 09/15/23 Rx injection, auto-injector (EpiPen anaphylaxis #2 ea 2-Sb) triamcinolone acetonide 0.1 % 1 applic topical DAILY PRN Skin 02/08/22 09/15/23 Rx topical ointment Irritation #80 grams menthol 0.44 %-zinc oxide 20.6 % 1 applic EXT DIRECTED 09/17/22 09/15/23 History topical ointment (Calmoseptine) magnesium oxide 400 mg (241.3 mg 400 mg PO BID #60 tabs 01/28/23 09/15/23 Rx magnesium) tablet cholecalciferol (vitamin D3) 25 3,000 unit PO QAM #0 caps 03/08/23 09/15/23 Rx mcg (1,000 unit) capsule folic acid 1 mg tablet 1 mg PO QAM #30 tabs 03/08/23 09/15/23 Rx lactulose 10 gram/15 mL (15 mL) 30 g (45 mL) PO TID #750 mL 03/31/23 09/15/23 Rx oral solution levothyroxine 137 mcg tablet 137 mcg PO QPM #90 tabs 03/31/23 09/15/23 Rx mesalamine 0.375 gram 1.5 g PO QDL #360 caps 03/31/23 09/15/23 Rx capsule,extended release 24 hr rifaximin 550 mg tablet (Xifaxan) 550 mg PO BID #180 tabs 03/31/23 09/15/23 Rx spironolactone 100 mg tablet 100 mg PO QAM #90 tabs 07/22/23 09/15/23 Rx bumetanide 2 mg tablet 2 mg PO BID #180 tabs 08/07/23 09/15/23 Rx allopurinol 300 mg tablet 300 mg PO DAILY #90 tabs 09/15/23 09/15/23 Rx metoprolol succinate 25 mg 12.5 mg PO DAILY 09/15/23 09/15/23 History tablet,extended release 24 hr Patient History Medical History Anasarca Anemia Atrial flutter 10/02/2020: Ablation of typical right atrial isthmus dependent flutter. [facility] Bacteremia Chronic kidney disease, stage 3a follows with Dr. Giraldo Cirrhosis CML (chronic myelocytic leukemia) no chemo at present GERD (gastroesophageal reflux disease) History of malignant neoplasm of appendix History of supraventricular tachycardia Hypertension Hypothyroidism Lymphedema Paroxysmal A-fib resolved with ablation Pressure ulcer of buttock Pulmonary edema Pulmonary embolism Aug 2022 > was treated with Eliquis and now finished Right heart failure Stage 3b chronic kidney disease SVT (supraventricular tachycardia) 01/21/2012: Ablation of typical slow fast AVNRT 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 Ulcerative colitis Venous ulcers of both lower extremities Vitamin D deficiency Volume overload Surgical History H/O hernia repair (12/04/12) H/O laparoscopy H/O left knee surgery H/O lymph node excision (~2011) 36 total H/O right hemicolectomy (~2011) 36 lymph nodes removed as well History of appendectomy History of colonoscopy (2014) History of esophagogastroduodenoscopy (EGD) History of removal of Port-a-Cath History of tooth extraction S/P ablation of atrial fibrillation Status post ablation of atrial flutter (12/04/12) 2020 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) Family History Grandmother (Paternal) Colorectal cancer Father Myocardial infarction Prostate cancer Denies family history of Ovarian cancer Dementia Breast cancer Social History Smoking Status: Never smoker Second Hand Exposure: No; Do You Dip or Chew Tobacco: No; Tobacco Cessation Education Requested by Patient: No Hx Alcohol Use: No Hx Substance Use: No Preferred Language: Guamanian Communication Ability: Impaired Communication Ability Comment: Altered Visual Impairment: Limited Hearing Ability: Normal Sheet Metal Helper Required: No Beliefs That Will Affect Care: Catholic marital status: Current Living Situation: Spouse Current Living Situation Comment: Lives with who has her own healthcare issues 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 How many Children do You have: 2 Feels Safe at Home: Yes Safety Concerns: Feels Safe At This Time Childhood Exposure to Second-Hand Smoke: No Diet: low salt and other Diet Comment: 2000 cc fluid restriction during the past year weight has: increased > 10 lbs Dental Care, Regularly: Yes Physical Activity Frequency: Daily Seatbelt Use: always Sunscreen Use: Yes Assistive Devices: Cane and Lift Chair Review of Systems Review of Systems: Other (acute confusion) Physical Exam Respiratory: normal respiratory effort, lungs clear to auscultation Cardiovascular: Rate/Rhythm: regular rate Extremities: + edema Gastrointestinal (Abdomen): normal bowel sounds, soft, nontender, no hepatosplenomegaly Musculoskeletal: Head/Neck/Chest: normocephalic Psychiatric: Orientation: alert; + not oriented x 3 Results & Data Vital Signs (Past 12 Hours) Vital Signs Temp Pulse Pulse Resp BP Pulse Ox O2 Del Method 09/17/23 11:32 36.8 C 91 H 18 163/69 H 100 Room Air 09/17/23 11:17 Room Air 09/17/23 07:59 36.9 C 91 H 18 156/64 H 98 Room Air 09/17/23 07:30 79 09/17/23 02:52 37.3 C 92 H 20 143/52 H 100 Room Air PG Care Time/CCT Total # of Minutes Spent Total Time Spent with Patient: Total time spent is greater than 50% in coordination of care (as documented) at patient's floor/unit and/or counseling patient: Coding Level of Care Code 65069 INT INP/OBS CARE 3/75MIN Diagnoses Altered mental status R41.82 Hepatic encephalopathy K76.82 Cirrhosis K74.60 Melena K92.1
[2023-09-17] MEDS: PANTOprazole 40 MG in DEXTROSE 5% MINI-B 100 ML IV SCH ×3 (14:02→23:06)
[2023-09-17 16:11] LABS: Hematocrit (blood only) 23.6 % (42.0-52.0); Hemoglobin 8.2 g/dl (14.0-18.0); Mean Corpuscular Hemoglobin 33.6 pg (25.0-34.0); Mean Corpuscular Hgb Conc 34.7 g/dL (32.0-36.0); Mean Corpuscular Volume 96.7 fL (80.0-100.0); Mean Platelet Volume 10.3 fL (9.4-12.4); Platelet Count 132 K/uL (130-400); RDW Standard Deviation 55.6 fL (36.4-46.3); Red Blood Count 2.44 M/uL (4.70-6.10); White Blood Count 13.09 K/ul (4.8-10.8)
--- NOTE | 2023-09-17 17:22 | XCELERA ---
[id number]
[2023-09-17] MEDS: LEVOTHYROXINE SODIUM 137 MCG TABLET PO SCH (20:44)
--- NOTE | 2023-09-17 21:23 | Electrocardiogram Report ---
Test Reason : Blood Pressure : / mmHG Vent. Rate : 087 BPM Atrial Rate : 087 BPM P-R Int : 192 ms QRS Dur : 130 ms QT Int : 420 ms P-R-T Axes : 009 -57 044 degrees QTc Int : 505 ms Normal sinus rhythm Left axis deviation Right bundle branch block Minimal voltage criteria for LVH, may be normal variant ( Henry product ) Abnormal ECG When compared with ECG of 12-FEB-2023 12:56, Questionable change in initial forces of Septal leads Confirmed by Stanley Cano ([id number]) on 09/17/2023 9:22:59 PM Referred By: REFERRED SELF Confirmed By:Stanley Cano
[2023-09-18] MEDS: PANTOprazole 40 MG in DEXTROSE 5% MINI-B 100 ML IV SCH ×4 (05:11→20:07)
--- NOTE | 2023-09-18 05:46 | Electrocardiogram Report ---
Test Reason : Blood Pressure : / mmHG Vent. Rate : 092 BPM Atrial Rate : 092 BPM P-R Int : 168 ms QRS Dur : 132 ms QT Int : 430 ms P-R-T Axes : 068 -57 073 degrees QTc Int : 531 ms Sinus rhythm with Premature supraventricular complexes Left axis deviation Right bundle branch block Septal infarct (cited on or before 15-SEP-2023) Abnormal ECG When compared with ECG of 15-SEP-2023 14:36, Premature supraventricular complexes are now Present Questionable change in initial forces of Anterior leads Confirmed by Stanley Cano ([id number] on 09/18/2023 5:45:58 AM Referred By: REFERRED SELF Confirmed By:Stanley Cano
[2023-09-18 06:08] LABS: Basophils # (auto) 0.13 K/uL (0.00-0.20); Eosinophils # (auto) 0.45 K/uL (0.00-0.50); Eosinophils % (auto) 3.5 %; Hematocrit (blood only) 22.9 % (42.0-52.0); Immature Granulocytes # (auto) 0.15 K/uL (0.01-0.20); Immature Granulocytes % (auto) 1.2 %; Lymphocytes # (auto) 2.48 K/uL (1.20-3.40); Lymphocytes % (auto) 19.3 %; Mean Corpuscular Hgb Conc 34.9 g/dL (32.0-36.0); Mean Corpuscular Volume 97.4 fL (80.0-100.0); Monocytes # (auto) 1.16 K/uL (0.11-0.59); Platelet Count 125 K/uL (130-400); RDW Coefficient of Variation 16.4 % (11.5-14.5); RDW Standard Deviation 56.9 fL (36.4-46.3); Red Blood Count 2.35 M/uL (4.70-6.10); White Blood Count 12.87 K/ul (4.8-10.8)
[2023-09-18 06:18] LABS: Albumin Globulin Ratio 0.9 (0.9-2); Albumin Level 3.3 gm/dl (3.4-5.0); BUN Creatinine Ratio 22.9 (10-20); Bilirubin,Total 4.7 mg/dl (0.2-1.0); Calcium 10.3 mg/dl (8.6-10.3); Creatinine Clr Calc Pharmacy 48.2 ml/min; Est GFR (Non-African American) 39.7 ml/min; Globulin 3.5 gm/dl (2.5-4.0); Magnesium 2.6 mg/dl (1.7-2.4); Potassium 3.9 mmol/L (3.5-5.1); Total Protein 6.8 gm/dl (6.0-8.3)
[2023-09-18] MEDS: LACTULOSE SYRUP 30 GM/45 ML UDP PO SCH ×3 (09:21→20:08)
[2023-09-18] MEDS: METOPROLOL SUCC 25MG EXT REL TAB PO SCH (09:24)
[2023-09-18] MEDS: allopurinoL 300 MG TAB PO SCH (09:24)
[2023-09-18] MEDS: MAGNESIUM OXIDE 400 MG TAB PO SCH ×2 (09:24→20:08)
[2023-09-18] MEDS: FOLIC ACID 1 MG TAB PO SCH (09:25)
[2023-09-18] MEDS: rifAXIMin 550 MG TABLET PO SCH ×2 (09:25→20:08)
[2023-09-18] MEDS: CHOLECALCIFEROL 1,000 UNITS 25 MCG TAB PO SCH (09:25)
--- NOTE | 2023-09-18 10:08 | Ultrasound Report ---
ABDOMINAL ULTRASOUND, RIGHT UPPER QUADRANT HISTORY: increasing bilirubin, r/o acute biliary concerns. COMPARISON: Right upper quadrant ultrasound February 12, 2023. CT of the abdomen and pelvis September 15, 2023. FINDINGS: Liver contour is slightly irregular and lobulated. No hepatic lesions are identified. There is no biliary ductal dilatation. The common bile duct measures 3 mm in caliber. Small amount of slud ge and stones within the gallbladder are noted. There is no gallbladder wall thickening. No sonograph ic Herrera sign was elicited. Pancreatic body is normal. Head and tail are obscured. There is no right hydronephrosis. IMPRESSION: 1. Cirrhotic liver morphology. No hepatic lesions. 2. No biliary ductal dilatation. 3. Small amount of stones and sludge within the gallbladder. No evidence for acute cholecystitis. ACT 112: Negative or not required by law. Electronically signed by: Vikram Angel M.D. 09/18/2023 10:06 AM
--- NOTE | 2023-09-18 11:16 | Gastroenterology Progress Note ---
Date of Service September 18, 2023 Assessment & Plan (1) Melena: Plan: No further episodes. H/H 8.0/22.9 -Continue IV Protonix at present -Consider inpatient EGD if patient has overt bleeding/worsening anemia (2) Abnormal gallbladder ultrasound: Plan: Sludge & gallstones noted on US imaging. -Keep NPO to obtain HIDA to rule out an underlying chronic cholecystitis -Continue to monitor LFTs (3) Cirrhosis: Plan: Will need continued ongoing follow-up with hepatology as an outpatient. Admission and Anticipated Discharge Date Admission Date: September 15, 2023 Supervising Physician Co-Signing Physician Notes I saw the patient and agree with the findings as documented by GIANFRANCO Mulligan Subjective Patient is a 68 yo male with dark stool on 09/17/23. Patient is more alert today, but does require frequent redirection. He denies abdominal pain at present. Brown stool is charted for his last bowel movement last night. No further episodes of dark stool. H/H 8.0/22.9. The patient had an abdominal US due to his T bili elevation worsening to ensure there were no biliary abnormalities. US showed cholelithiasis & sludge. Review of Systems Constitutional: no fever and no chills Respiratory: no cough and no dyspnea Cardiovascular: no chest pain Gastrointestinal: no abdominal pain Psychiatric: Requires constant redirection Physical Exam Constitutional: well developed Respiratory: normal respiratory effort, lungs clear to auscultation Cardiovascular: Rate/Rhythm: + tachycardic Gastrointestinal (Abdomen): Inspection/Auscultation: abdomen normal to inspection; abdomen not distended Results & Data Results & Data Vital Signs (Past 12 Hours) Vital Signs Temp Pulse Pulse Resp BP Pulse Ox O2 Del Method 09/18/23 08:00 36.5 C 97 H 16 131/68 96 Room Air 09/18/23 07:19 Room Air 09/18/23 03:25 36.4 C L 87 18 142/60 H 96 Room Air 09/18/23 01:43 92 H PG Care Time/CCT Total # of Minutes Spent Total Time Spent with Patient: Total time spent is greater than 50% in coordination of care (as documented) at patient's floor/unit and/or counseling patient: Coding Level of Care Code 83961 SUB INP/OBS CARE 3/50MIN Diagnoses Melena K92.1 Abnormal gallbladder ultrasound R93.2 Cirrhosis K74.60
--- NOTE | 2023-09-18 15:39 | Nuclear Medicine Report ---
NM hepatobiliary CLINICAL HISTORY: 68 years-old Male with GB sludge/stones; r/o chronic cholecystitis. Chronic right upper quadrant abdominal pain TECHNIQUE: Sequential anterior abdominal images were obtained through 65 minutes following the intra venous administration of 6.0 mCi of technetium-99m Choletec. COMPARISON: Ultrasound of same day, CT abdomen and pelvis 09/15/2023 FINDINGS: There is prompt, uniform accumulation of the tracer by the liver. There is normal filling of the int rahepatic ducts, common bile duct and normal excretion of the tracer into the duodenum. The gallblad nancy is only faintly visualized on the 60 minute image and is confirmed with uptake seen on the delaye d 65 minute image. IMPRESSION: 1. Delayed tracer uptake within the gallbladder may be secondary to chronic cholecystitis. 2. No scintigraphic evidence of cystic or common bile duct obstruction. ACT 112: Negative or not required by law. The above report was generated using voice recognition software. It may contain grammatical, syntax o r spelling errors. Electronically signed by: Arturo Kwong M.D. 09/18/2023 3:38 PM
--- NOTE | 2023-09-18 16:23 | Hospitalist Progress Note ---
Date of Service September 18, 2023 Assessment & Plan (1) Hepatic encephalopathy: Plan: Metabolic encephalopathyEvidenced by ANNA, hyponatremia, hypomagnesemia, and possible UTI with hepatic encephalopathy Worsening over the last 2 days prior to admission. reports pt may be noncompliant with lactulose. Last BM 2 days prior to admission Also he had been taking benadryl for itching which may be contributing With chronic leukocytosis but no fever. 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 manager 2.25 on admission, 2/2 prerenal, poor po intake last 2 days prior to admission in setting of taking aldactone and bumex diuretics on hold and received 1 L NS--> corporate accounting manager improved to 1.7 has a h/o temporary HD earlier this year follows with Nephrology follow BMP (3) GI bleed: Plan: reports a black stool at home, 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 Has never had EGD Consult GI to see about possible EGD-none planned at this time Continue PPI gtt and convert to p.o. Protonix likely tomorrow follow CBC in the a.m. type and cross for 2 units blood, gave consent for blood transfusion and consent on chart Keep appointments with [facility] in November for EGD and colonoscopy Advance diet to clear liquid (4) Anemia: Plan: hgb low at 8.5 on admission, down from 10 about two weeks prior- thought to be from h/o chronic intermittent bleeding, folate deficiency, and anemia of chronic disease has UC and reports dark stool earlier this week and another dark tarry stool here on 09/17 as above hgb slight drop to 8.0 recent Fe studies, B12, folate all normal follow CBC Plan as above (5) Cirrhosis: Plan: known cirrhosis, follows with [facility]ology LFTs elevated further than typically, INR 1.4, plts mildly low all consistent with previous Na+ a bit lower on arrival due to hypovolemia--> now improved with IVFs continue rifaximin, lactulose as above monitor labs avoid benadryl for itching as caused encephalopathy Appreciate GI consult-check Abd US which showed cholelithiasis and biliary sludge-checked HIDA scan which shows possible chronic cholecystitis -Consult surgery but is not likely a good candidate for cholecystectomy. He has no abdominal pains or symptoms of cholecystitis (6) Murmur: Plan: with h/o mild on ECHO from 01/2023 but murmur quite loud here possibly due to worsening anemia? checked ECHO-mild and mild AI, preserved EF Checked blood cultures-remain NGTD (7) CML (chronic myelocytic leukemia): Plan: not currently getting treatment for this and is in remission based on most recent BCR abl gene testing follows with oncology Does have a chronic leukocytosis as per (8) Atrial flutter: Plan: with a h/o ablation for such Remains in NSR here (9) Ulcerative colitis: Plan: on mesalamine at home which is not available at our pharmacy, has upcoming scope in next few months unclear who has seen him in the past for this condition (10) GERD (gastroesophageal reflux disease): Plan: continue PPI (11) Chronic kidney disease, stage 3a: Plan: with a h/o needing HD earlier in 2022 corporate accounting manager baseline around 1.8 with ANNA as above now resolved -Avoid nephrotoxins -renally dose meds when appropriate -follow BMP (12) Hypothyroidism: Plan: TSH 4.4 in 04/2023 continue home LT4 (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 (14) Lymphedema: Plan: uses compression and lymphedema therapy wound care consult for cracks in skin of legs and severe ichthyosis (15) Hyponatremia: Plan: Na low on arrival at 126 due to poor po intake in setting of diuretics now normal with NS IVFs and holding diuretics restart diuretics likely in 1-2 days after po intake improves (16) Sacral decubitus ulcer: Plan: Pressure ulcer of buttock Stage 1 POA Wound care consult, offload pressure (17) Chronic cholecystitis: Plan: As above Surgery consult appreciated Plan DVT proph-hold chemical means due to anemia and possible GIB Dispo-continued stay, will need PT/OT when able to participate Discussed care with on phone on 09/17 and again on 09/18 Admission and Anticipated Discharge Date Admission Date: September 15, 2023 Subjective Patient's mentation is much improved today. He is able to have a simple conversation with me. He denies abdominal pain. He reports feeling very thirsty and hungry. He had a brown bowel movement today and no further melena. I discussed his care with GI. Telemetry with normal sinus rhythm with rates in the 50s to 80s Physical Exam Constitutional: WD/WN, vitals as above Neck: trachea midline, no thyromegaly Respiratory: normal respiratory effort, lungs clear to auscultation Cardiovascular: RRR, no murmur, no edema Rate/Rhythm: regular rate and regular rhythm Heart Sounds: + murmur (3/6 systolic murmur at RUSB) Extremities: + edema (2+ woody edema with thickened cracked skin legs bilat) Gastrointestinal (Abdomen): normal bowel sounds, soft, nontender, no hepatosplenomegaly Musculoskeletal: Extremities: no cyanosis and no clubbing Neurologic: moves all extremities; no focal motor deficits Psychiatric: Orientation: alert, oriented to person, oriented to place and cooperative Results & Data Results & Data Vital Signs (Past 12 Hours) Vital Signs Temp Pulse Pulse Resp BP Pulse Ox O2 Del Method 09/18/23 15:13 92 H 09/18/23 15:37 36.5 C 92 H 16 146/70 H 99 Room Air 09/18/23 11:43 36.4 C L 86 16 142/64 H 99 Room Air 09/18/23 05:59 89 09/18/23 08:00 36.5 C 97 H 16 131/68 96 Room Air 09/18/23 07:19 Room Air Laboratory Results CBC, CMP, magnesium, ammonia level and blood cultures reviewed PG Care Time/CCT Total # of Minutes Spent Total Time Spent with Patient: Total time spent is greater than 50% in coordination of care (as documented) at patient's floor/unit and/or counseling patient: Coding Level of Care Code 05506 SUB INP/OBS CARE 50MIN Diagnoses Hepatic encephalopathy K76.82 Acute kidney injury superimposed on CKD N17.9; N18.9 GI bleed K92.2 Anemia D64.9 Anemia type: other cause Cirrhosis K74.60 Murmur R01.1 CML (chronic myelocytic leukemia) C92.10 Atrial flutter I48.92 Ulcerative colitis K51.90 GERD (gastroesophageal reflux disease) K21.9 Chronic kidney disease, stage 3a N18.31 Hypothyroidism E03.9 History of malignant neoplasm of appendix Z85.09 Lymphedema I89.0 Hyponatremia E87.1 Sacral decubitus ulcer L89.159 Chronic cholecystitis K81.1 (4) Anemia Anemia type: other cause
[2023-09-18] MEDS ORDERED: AMMONIUM LACTATE 12% LOTION 225 GM BTL EXT PRN (20:02)
--- NOTE | 2023-09-18 20:05 | Surgery Consultation ---
This case was discussed with surgical PA I agree with the plan Date of Consultation September 18, 2023 Assessment & Plan (1) Abnormal gallbladder ultrasound: The patient has been admitted on the hospitalist service secondary to underlying hepatic encephalopathy. It appears as though the patient has started to show some signs of improvement. General surgery has been asked to evaluate the patient for concerns for chronic cholecystitis. At the present time the patient denies any abdominal pain and he has an entirely benign abdominal exam. With the patient's underlying hepatic issues as well as concern for melanotic stool and possible GI bleed we would not be in a sherman to take the patient to the operating room for cholecystectomy. For the present time would recommend continue to monitor patient's hemoglobin and hematocrit and see if GI plans on performing an EGD this admission. Would also recommend continuing to follow serial labs.Would recommend treating the patient's underlying hepatic encephalopathy as you are doing with his Xifaxan and lactulose. We will continue to follow while the patient is hospitalized with further recommendations to follow. The patient was evaluated by Dr. Velasquez on 09/19/2023 for further recommendations. History of Present Illness Reason for Consultation: Concern for chronic cholecystitis Attending Physician: Urvashi Murphy MD History of Present Illness This is a 68-year-old male who was admitted to [facility] on 09/15/2023. The patient was admitted secondary to hepatic encephalopathy as it was reported by the patient's family that he was not taking his lactulose as directed. At the time of admission there was reportedly no specific sy mptomatology such as respiratory difficulties or abdominal pain. At the time of my interview with the patient he stated he was unsure why he was in the hospital but he specifically denies any abdominal pain. He also reports that he has not been having any postprandial abdominal pain. He does report that he has been having melanotic stools recently. The patient was able to tell me that he has had prior abdominal surgeries in the form of a right hemicolectomy as well as he believes a right inguinal hernia. Due to concern for underlying hepatic encephalopathy the patient was seen by gastroenterology this admission. The patient follows with Dr. Jennifer Luna of [facility] hepatology for underlying cirrhosis. GI was asked to comment on the patient having melanotic stools. It is noted that the patient did have plans for an EGD and colonoscopy with [facility] gastroenterology. Initially gastroenterology had recommended monitoring the patient's hemoglobin and hematocrit and consideration was to be given to performing an EGD if patient's anemia became worseto date they have not decided whether or not patient would require an EGD this admission. It was recommended the patient undergo HIDA scan to evaluate for chronic cholecystitis which will be listed below. Since admission to the hospital the patient has had labs and imaging which) reviewed. On 09/15/[address] a CT scan of the head that showed no acute intracranial findings. On 09/15/2023 the patient had a chest x-ray that showed some pulmonary vascular congestion but no definite pleural effusions were noted. A CT scan of the abdomen pelvis was performed that showed the patient had evidence of gallstones without biliary ductal dilatation. The patient did have a HIDA scan performed that showed delayed tracer uptake within the gallbladder felt to potentially represent chronic cholecystitis. There is no evidence of common bile duct or cystic duct obstruction on this study. An abdominal ultrasound was performed that showed a cirrhotic appearing liver with no hepatic lesions. There is no biliary ductal dilatation noted. There is no evidence of acute cholecystitis on this study but the patient was noted to have a small amount of gallstones and sludge within the gallbladder. Most recent labs include a CBC from today which showed a white blood cell count of 12.8. Hemoglobin and hematocrit are 8.0 and 22.9. (These values do not represent a precipitous drop since time of admission) platelet count is 125,000. Chemistry profile showed sodium and potassium are both normal. His BUN and creatinine were 40 and 1.75. (This level of creatinine is near the patient's baseline and the BUN did not represent a significant elevation.) LFTs show the patient's total bilirubin is 4.7. Review of records show the patient does have a chronically elevated bilirubin his AST and ALT as well as alkaline phosphatase are nonelevated. The patient did have an elevated ammonia level which today was 104 (his peak value during this admission was 163). The patient had blood cultures checked this admission which are negative to date (they were drawn on 09/16/2023). In addition, the patient has had coagulation studies this admission which showed an INR of 1.4. At the time of my interview the patient was resting comfortably in bed he was in no distress. Allergies Allergy/AdvReac Type Severity Reaction Status Date / Time bee venom protein (honey bee) Allergy Severe DYSPNEA;SWE Verified 09/15/23 17:24 LLING latex Allergy Intermediate Rash Verified 09/15/23 17:24 Penicillins Allergy Unknown HAPPENED Verified 09/15/23 17:24 A CHILD Home Medications Medication Instructions Recorded Confirmed Type epinephrine 0.3 mg/0.3 mL 0.3 mg (0.3 mL) IM Q10M PRN 08/06/21 09/15/23 Rx injection, auto-injector (EpiPen anaphylaxis #2 ea 2-Sb) triamcinolone acetonide 0.1 % 1 applic topical DAILY PRN Skin 02/08/22 09/15/23 Rx topical ointment Irritation #80 grams menthol 0.44 %-zinc oxide 20.6 % 1 applic EXT DIRECTED 09/17/22 09/15/23 History topical ointment (Calmoseptine) magnesium oxide 400 mg (241.3 mg 400 mg PO BID #60 tabs 01/28/23 09/15/23 Rx magnesium) tablet cholecalciferol (vitamin D3) 25 3,000 unit PO QAM #0 caps 03/08/23 09/15/23 Rx mcg (1,000 unit) capsule folic acid 1 mg tablet 1 mg PO QAM #30 tabs 03/08/23 09/15/23 Rx lactulose 10 gram/15 mL (15 mL) 30 g (45 mL) PO TID #750 mL 03/31/23 09/15/23 Rx oral solution levothyroxine 137 mcg tablet 137 mcg PO QPM #90 tabs 03/31/23 09/15/23 Rx mesalamine 0.375 gram 1.5 g PO QDL #360 caps 03/31/23 09/15/23 Rx capsule,extended release 24 hr rifaximin 550 mg tablet (Xifaxan) 550 mg PO BID #180 tabs 03/31/23 09/15/23 Rx spironolactone 100 mg tablet 100 mg PO QAM #90 tabs 07/22/23 09/15/23 Rx bumetanide 2 mg tablet 2 mg PO BID #180 tabs 08/07/23 09/15/23 Rx allopurinol 300 mg tablet 300 mg PO DAILY #90 tabs 09/15/23 09/15/23 Rx metoprolol succinate 25 mg 12.5 mg PO DAILY 09/15/23 09/15/23 History tablet,extended release 24 hr Patient History Medical History Anasarca Anemia Atrial flutter 10/02/2020: Ablation of typical right atrial isthmus dependent flutter. [facility] Bacteremia Chronic kidney disease, stage 3a follows with Dr. 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 Ulcerative colitis Venous ulcers of both lower extremities Vitamin D deficiency Volume overload Surgical History H/O hernia repair (12/04/12) H/O laparoscopy H/O left knee surgery H/O lymph node excision (~2011) 36 total H/O right hemicolectomy (~2011) 36 lymph nodes removed as well History of appendectomy History of colonoscopy (2014) History of esophagogastroduodenoscopy (EGD) History of removal of Port-a-Cath History of tooth extraction S/P ablation of atrial fibrillation Status post ablation of atrial flutter (12/04/12) 2019 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) Family History Grandmother (Paternal) Colorectal cancer Father Myocardial infarction Prostate cancer Denies family history of Ovarian cancer Dementia Breast cancer Social History Smoking Status: Never smoker Second Hand Exposure: No; Do You Dip or Chew Tobacco: No; Tobacco Cessation Education Requested by Patient: No Hx Alcohol Use: No Hx Substance Use: No Preferred Language: Guatemalan Communication Ability: Impaired Communication Ability Comment: Altered Visual Impairment: Limited Hearing Ability: Normal President Practicing Urologist Required: No Beliefs That Will Affect Care: Confucianist marital status: Current Living Situation: Spouse Current Living Situation Comment: Lives with who has her own healthcare issues 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 How many Children do You have: 2 Feels Safe at Home: Yes Safety Concerns: Feels Safe At This Time Childhood Exposure to Second-Hand Smoke: No Diet: low salt and other Diet Comment: 2000 cc fluid restriction during the past year weight has: increased > 10 lbs Dental Care, Regularly: Yes Physical Activity Frequency: Daily Seatbelt Use: always Sunscreen Use: Yes Assistive Devices: Cane and Lift Chair Physical Exam Constitutional: no acute distress Eyes: + anicteric sclerae ENMT: Ears: no hearing impairment Sublingual jaundice is absent Neck: trachea midline Respiratory: normal respiratory effort; no respiratory distress and no labored breathing Cardiovascular: Rate/Rhythm: regular rate and regular rhythm Gastrointestinal (Abdomen): Patient has a well-healed midline incision his abdomen. At the time my exam the patient had absolutely no abdominal pain with palpation specifically no right upper quadrant pain. There is no rebound tenderness or guarding. Musculoskeletal: No calf tenderness Skin: no rashes Neurologic: moves all extremities Psychiatric: Orientation: alert, oriented to person and oriented to place; + not oriented to time Results & Data Vital Signs (Past 12 Hours) Vital Signs Temp Pulse Pulse Resp BP Pulse Ox O2 Del Method 09/18/23 15:13 92 H 09/18/23 15:37 36.5 C 92 H 16 146/70 H 99 Room Air 09/18/23 11:43 36.4 C L 86 16 142/64 H 99 Room Air PG Care Time/CCT Total # of Minutes Spent Total Time Spent with Patient: Total time spent is greater than 50% in coordination of care (as documented) at patient's floor/unit and/or counseling patient: Coding Level of Care Code 92866 INT INP/OBS CARE 3/75MIN Diagnoses Abnormal gallbladder ultrasound R93.2
[2023-09-18] MEDS: LEVOTHYROXINE SODIUM 137 MCG TABLET PO SCH (20:08)
[2023-09-19] MEDS: PANTOprazole 40 MG in DEXTROSE 5% MINI-B 100 ML IV SCH ×4 (01:12→19:21)
[2023-09-19 06:37] LABS: Basophils # (auto) 0.12 K/uL (0.00-0.20); Basophils % (auto) 0.9 %; Eosinophils # (auto) 0.78 K/uL (0.00-0.50); Eosinophils % (auto) 5.9 %; Hematocrit (blood only) 22.2 % (42.0-52.0); Hemoglobin 7.5 g/dl (14.0-18.0); Immature Granulocytes # (auto) 0.18 K/uL (0.01-0.20); Immature Granulocytes % (auto) 1.4 %; Lymphocytes # (auto) 3.28 K/uL (1.20-3.40); Lymphocytes % (auto) 24.7 %; Mean Corpuscular Hemoglobin 33.8 pg (25.0-34.0); Mean Corpuscular Hgb Conc 33.8 g/dL (32.0-36.0); Mean Platelet Volume 10.4 fL (9.4-12.4); Monocytes # (auto) 1.08 K/uL (0.11-0.59); Monocytes % (auto) 8.1 %; Neutrophils # (auto) 7.85 K/uL (1.40-6.50); Nucleated RBC # (auto) 0.02 K/uL (0.00-0.12); Nucleated RBC % (auto) 0.2 %; Platelet Count 141 K/uL (130-400); RDW Coefficient of Variation 16.7 % (11.5-14.5); RDW Standard Deviation 60.2 fL (36.4-46.3); Red Blood Count 2.22 M/uL (4.70-6.10); White Blood Count 13.29 K/ul (4.8-10.8)
[2023-09-19 06:46] LABS: Albumin Level 3.1 gm/dl (3.4-5.0); BUN Creatinine Ratio 19.2 (10-20); Bilirubin Direct 1.3 mg/dl (0-0.2); Bilirubin,Total 4.2 mg/dl (0.2-1.0); Calcium 9.7 mg/dl (8.6-10.3); Creatinine Clr Calc Pharmacy 45.9 ml/min; Est GFR (African American) 43.9 ml/min; Est GFR (Non-African American) 37.9 ml/min; Magnesium 2.4 mg/dl (1.7-2.4); Potassium 3.8 mmol/L (3.5-5.1); Total Protein 6.6 gm/dl (6.0-8.3)
[2023-09-19 06:53] LABS: INR 1.6 (0.9-1.1); Prothrombin Time 17.5 Seconds (9.0-12.0)
[2023-09-19 07:26] LABS: Anisocytosis Present
[2023-09-19] MEDS: CHOLECALCIFEROL 1,000 UNITS 25 MCG TAB PO SCH (08:22)
[2023-09-19] MEDS: METOPROLOL SUCC 25MG EXT REL TAB PO SCH (08:22)
[2023-09-19] MEDS: allopurinoL 300 MG TAB PO SCH (08:22)
[2023-09-19] MEDS: FOLIC ACID 1 MG TAB PO SCH (08:23)
[2023-09-19] MEDS: rifAXIMin 550 MG TABLET PO SCH ×2 (08:23→19:59)
[2023-09-19] MEDS: MAGNESIUM OXIDE 400 MG TAB PO SCH ×2 (08:23→19:59)
[2023-09-19] MEDS: LACTULOSE SYRUP 30 GM/45 ML UDP PO SCH ×3 (08:24→19:58)
--- NOTE | 2023-09-19 08:58 | History & Physical Bridge Note ---
Date of Service September 19, 2023 History & Physical Bridge Note I have reviewed the History & Physical and in the interval since the performance of the History & Physical I have noted the following changes of clinical significance: H/H 7.5/22.2. Patient continues on IV PPI. He did have a black, loose stool again 09/18/23. Keep NPO & proceed with EGD today for further evaluation of melena/anemia if deemed acceptable by anesthesia.
[2023-09-19] MEDS ORDERED: LIDOCAINE 2% 2 ML VIAL/AMP(20MG/ML) INFIL ONE (09:14)
[2023-09-19] MEDS ORDERED: MIDAZOLAM HCL 1 MG/ML 2ML VIAL ONE (09:14)
[2023-09-19] MEDS ORDERED: ONDANSETRON INJ 2 MG/ML 2 ML VIAL ONE (09:15)
[2023-09-19] MEDS ORDERED: PROPOFOL IV EMULSION 10 MG/ML 20 ML VIAL IV ONE (09:15)
--- NOTE | 2023-09-19 10:04 | Anesthesiology Consultation ---
Date of Service September 19, 2023 Assessment & Plan ASA ASA3 Proposed Anesthesia Anesthesia Type: MAC Risk / Benefits Reviewed With: PT / POA / Parent / Guardian, Accepts Plan and Informed Consent Obtained History Surgery Operation Date: 09/19/23 16:45 Proposed Procedures p Esophagogastroduodenoscopy Dr. Stewart - Jose Stewart MD Height/Weight Height: 5 ft 7 in Weight: 104.2 kg Allergies Allergy/AdvReac Type Severity Reaction Status Date / Time bee venom protein (honey bee) Allergy Severe DYSPNEA;SWE Verified 09/15/23 17:24 LLING latex Allergy Intermediate Rash Verified 09/15/23 17:24 Penicillins Allergy Unknown HAPPENED Verified 09/15/23 17:24 A CHILD Medications Home Medications Medication Instructions Recorded Confirmed Last Taken epinephrine 0.3 mg/0.3 mL 0.3 mg (0.3 mL) IM Q10M PRN 08/06/21 09/15/23 Unknown injection, auto-injector (EpiPen anaphylaxis #2 ea 2-Sb) triamcinolone acetonide 0.1 % 1 applic topical DAILY PRN Skin 02/08/22 09/15/23 Unknown topical ointment Irritation #80 grams menthol 0.44 %-zinc oxide 20.6 % 1 applic EXT DIRECTED 09/17/22 09/15/23 Unknown topical ointment (Calmoseptine) magnesium oxide 400 mg (241.3 mg 400 mg PO BID #60 tabs 01/28/23 09/15/23 03/09/23 08:00 magnesium) tablet cholecalciferol (vitamin D3) 25 3,000 unit PO QAM #0 caps 03/08/23 09/15/23 03/09/23 mcg (1,000 unit) capsule folic acid 1 mg tablet 1 mg PO QAM #30 tabs 03/08/23 09/15/23 03/09/23 lactulose 10 gram/15 mL (15 mL) 30 g (45 mL) PO TID #750 mL 03/31/23 09/15/23 09/15/23 09:00 oral solution levothyroxine 137 mcg tablet 137 mcg PO QPM #90 tabs 03/31/23 09/15/23 Unknown mesalamine 0.375 gram 1.5 g PO QDL #360 caps 03/31/23 09/15/23 Unknown capsule,extended release 24 hr rifaximin 550 mg tablet (Xifaxan) 550 mg PO BID #180 tabs 03/31/23 09/15/23 Unknown spironolactone 100 mg tablet 100 mg PO QAM #90 tabs 07/22/23 09/15/23 Unknown bumetanide 2 mg tablet 2 mg PO BID #180 tabs 08/07/23 09/15/23 Unknown allopurinol 300 mg tablet 300 mg PO DAILY #90 tabs 09/15/23 09/15/23 Unknown metoprolol succinate 25 mg 12.5 mg PO DAILY 09/15/23 09/15/23 Unknown tablet,extended release 24 hr Active Medications Generic Name Dose Route Start Last Admin Trade Name Freq PRN Reason Stop Dose Admin Allopurinol 300 mg 09/16/23 09:00 09/19/23 08:22 Allopurinol 300 Mg Tab PO 10/16/23 08:59 300 mg DAILY KALLI Administration Folic Acid 1 mg 09/16/23 09:00 09/19/23 08:23 Folic Acid 1 Mg Tab PO 10/16/23 08:59 1 mg QAM KALLI Administration Pantoprazole Sodium 40 mg/ 100 mls @ 20 mls/hr 09/17/23 12:30 09/19/23 05:51 Dextrose IV 10/17/23 12:29 8 mg/hr Q5H KALLI 20 mls/hr Administration 8 MG/HR Lactic Acid 1 gm 09/18/23 20:02 09/18/23 22:54 Ammonium Lactate 12% Lotion 225 Gm Btl EXT 10/18/23 20:01 1 gm BID PRN Administration Itching Lactulose 30 gm 09/16/23 07:00 09/19/23 08:24 Lactulose Syrup 30 Gm/45 Ml Udp PO 10/16/23 06:59 30 gm TID KALLI Administration Levothyroxine Sodium 137 mcg 09/15/23 21:37 09/18/23 20:08 Levothyroxine Sodium 137 Mcg Tablet PO 10/15/23 21:36 137 mcg DAILY@2000 KALLI Administration Magnesium Oxide 400 mg 09/15/23 21:37 09/19/23 08:23 Magnesium Oxide 400 Mg Tab PO 10/15/23 21:36 400 mg BID KALLI Administration Metoprolol Succinate 12.5 mg 09/16/23 09:00 09/19/23 08:22 Metoprolol Succ 25mg Ext Rel Tab PO 10/16/23 08:59 12.5 mg DAILY KALLI Administration Miscellaneous 1 each 09/16/23 08:00 09/19/23 05:52 Mesalamine: Order Awaiting Action N/A 10/16/23 07:59 Not Given QS KALLI Rifaximin 550 mg 09/15/23 21:37 09/19/23 08:23 Rifaximin 550 Mg Tablet PO 10/15/23 21:36 550 mg BID KALLI Administration Vitamin D 3,000 units 09/16/23 09:00 09/19/23 08:22 Cholecalciferol 1,000 Units 25 Mcg Tab PO 10/16/23 08:59 3,000 units QAM KALLI Administration Past Medical History Medical History Anasarca Anemia Atrial flutter 10/02/2020: Ablation of typical right atrial isthmus dependent flutter. [facility] Bacteremia Chronic kidney disease, stage 3a follows with Dr. 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 Ulcerative colitis Venous ulcers of both lower extremities Vitamin D deficiency Volume overload Exercise / Class Metabolic Activity II 4-5 Yardwork/Stairs/Walk up hill Past Family History Family History Grandmother (Paternal) Colorectal cancer Father Myocardial infarction Prostate cancer Denies family history of Ovarian cancer Dementia Breast cancer Past Surgical History Surgical History H/O hernia repair (12/04/12) H/O laparoscopy H/O left knee surgery H/O lymph node excision (~2011) 36 total H/O right hemicolectomy (~2011) 36 lymph nodes removed as well History of appendectomy History of colonoscopy (2014) History of esophagogastroduodenoscopy (EGD) History of removal of Port-a-Cath History of tooth extraction S/P ablation of atrial fibrillation Status post ablation of atrial flutter (12/04/12) 2020 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) Past Anesthesia History No Hx of Anesthesia Complications and No Family Hx of Anesthesia Complications History of PONV No Hx of PONV and No Hx of Motion Sickness Social History Smoking Status: Never smoker Do You Dip or Chew Tobacco: No Hx Alcohol Use: No Alcohol type: beer alcohol intake frequency: holidays/special occasions only Hx Substance Use: No substance use type: does not use Review of Systems denies fever/cough/ colds/ chest pain/ SOB/ SAM denies SAM Physical Exam Vital Signs Last Vital Signs Temp 36.3 C L 09/19/23 10:02 Pulse 86 09/19/23 10:02 Resp 16 09/19/23 10:02 BP 116/49 L 09/19/23 10:02 Pulse Ox 99 09/19/23 10:02 O2 Del Method Room Air 09/19/23 10:02 O2 Flow Rate 0 09/15/23 14:36 ENMT Mouth: + dentition abnormality (missing top teeth); no TMJ abnormality Thyromental Distance: > or= 3.5 Finger Breadths Mallampati Class: II Neck neck extension not limited Respiratory normal respiratory effort; no respiratory distress Auscultation: lungs clear to auscultation bilaterally Cardiovascular Rate/Rhythm: regular rate and regular rhythm Heart Sounds: + murmur Neurologic moves all extremities Psychiatric Orientation: alert and oriented x 3 Testing Laboratory Results 09/19/23 06:08 09/19/23 06:08 PT 17.5 Seconds (9.0-12.0) H 09/19/23 06:08 INR 1.6 (0.9-1.1) H 09/19/23 06:08 APTT 30.7 Seconds (21.0-31.0) 09/16/23 04:05 Urine Color Yellow 09/15/23 18:00 Urine Appearance Clear (Clear) 09/15/23 18:00 Urine pH 6.5 (4.5-7.5) 09/15/23 18:00 Ur Specific [place] 1.011 (1.000-1.030) 09/15/23 18:00 Urine Protein Negative (Negative) 09/15/23 18:00 Urine Glucose (UA) Negative (Negative) 09/15/23 18:00 Urine Ketones Negative (Negative) 09/15/23 18:00 Urine Nitrite Negative (Negative) 09/15/23 18:00 Ur Leukocyte Esterase 2+ (Negative) H 09/15/23 18:00 Urine WBC (Auto) >30 /hpf (0-5) H 09/15/23 18:00 Urine RBC (Auto) 0-4 /hpf (0-4) 09/15/23 18:00 U Hyaline Cast (Auto) 5-10 /lpf (0-5) H 09/15/23 18:00 U Epithel Cells (Auto) 10-20 /lpf (0-5) H 09/15/23 18:00 Urine Bacteria (Auto) Negative (Negative) 09/15/23 18:00 Blood Type A Negative 09/17/23 12:56 Antibody Screen NEGATIVE 09/17/23 12:56 09/16/23 23:50 Aerobic Blood Culture - Preliminary Blood No growth in Aerobic bottle after 48 hours. Anaerobic Blood Culture - Preliminary No growth in Anaerobic bottle after 48 hours. 09/16/23 23:50 Aerobic Blood Culture - Preliminary Blood No growth in Aerobic bottle after 48 hours. Anaerobic Blood Culture - Preliminary No growth in Anaerobic bottle after 48 hours. 09/15/23 18:00 Urine Culture - Final Urine,Clean Catch Mercedes albicans/dubliniensis
[2023-09-19] MEDS ORDERED: PHENYLEPHRINE HCL 10 MG/ML VIAL ONE (10:23)
--- NOTE | 2023-09-19 10:29 | GI REPORT ---
Patient Name: Rodríguez Bashir Procedure Date: 09/19/2023 10:09 AM Date of : 1955 Admit Type: Inpatient Age: 68 Gender: Male Attending MD: Jose Stewart MD, Procedure: Upper GI endoscopy Providers: Jose Stewart MD Referring MD: Referred Self Indications: Melena Medicines: Monitored Anesthesia Care Complications: No immediate complications. Estimated blood loss: None. Estimated Blood Loss: Estimated blood loss: none. Procedure: Pre-Anesthesia Assessment: - Prior Anticoagulants: The patient has taken no anticoagulant or antiplatelet agents. - ASA Grade Assessment: III - A patient with severe systemic disease. After obtaining informed consent, the endoscope was passed under direct vision. Throughout the procedure, the patient's blood pressure, pulse, and oxygen saturations were monitored continuously. The Endoscope was introduced through the mouth, and advanced to the second part of duodenum. The upper GI endoscopy was accomplished without difficulty. The patient tolerated the procedure well. Findings: The Z-line was irregular and was found at the gastroesophageal junction with a small tongue noted. Biopsies were taken with a cold forceps for histology to r/o barretts esophagus. Estimated blood loss: none. One non-bleeding cratered gastric ulcer with no stigmata of bleeding was found in the gastric antrum with some mild gastritis. Biopsies were taken with a cold forceps for Helicobacter pylori testing. Estimated blood loss: none. The duodenal bulb and second portion of the duodenum were normal. Impression: - Z-line irregular, at the gastroesophageal junction. Biopsied. - Non-bleeding gastric ulcer with no stigmata of bleeding. Biopsied. - Normal duodenal bulb and second portion of the duodenum. Recommendation: - Resume previous diet today. - Await pathology results. -protonix 40 mg daily for at least 8 weeks - Return patient to [facility] for ongoing care. Jose Stewart MD 09/19/2023 10:28:59 AM This report has been signed electronically. Note Initiated On: 09/19/2023 10:09 AM Number of Addenda: 0 I attest to the content of the Intraoperative Record and orders documented therein, exceptions below {[id number]}
--- NOTE | 2023-09-19 10:44 | Anesthesiology Progress Note ---
Date of Service September 19, 2023 Anesthesia Post Procedure Vital Signs Vital Signs: Temp Pulse Pulse Resp BP Pulse Ox O2 Del Method 09/19/23 10:33 111 H 16 112/80 100 Room Air 09/19/23 10:02 36.3 C L 86 16 116/49 L 99 Room Air 09/19/23 07:48 82 09/19/23 07:44 36.3 C L 85 16 126/60 98 Room Air 09/19/23 03:10 36.4 C L 83 18 135/65 98 Room Air 09/18/23 22:20 96 H 09/18/23 22:00 36.3 C L 91 H 18 138/62 99 Room Air 09/18/23 19:00 36.5 C 86 20 113/68 99 Room Air 09/18/23 15:13 92 H 09/18/23 15:37 36.5 C 92 H 16 146/70 H 99 Room Air 09/18/23 11:43 36.4 C L 86 16 142/64 H 99 Room Air Transfer of Care Handoff Completed per policy Notes Mental Status: alert / awake / arousable and participated in evaluation Patient Amnestic to Procedure: Yes Nausea / Vomiting: adequately controlled Pain: adequately controlled Airway Patency, RR, SpO2: stable & adequate BP & HR: stable & adequate Hydration State: stable & adequate Anesthetic Complications: no major complications apparent and Pt Satisfied with anesthetic care
--- NOTE | 2023-09-19 11:33 | Communication Note ---
Date of Service: September 19, 2023 Patient is a 68 yo male who underwent an EGD today and was found to have a single clean-based gastric ulcer. When patient was brought back to the floor, he had another dark bowel movement. Would advise continuation of his IV PPI therapy at this time, continue to monitor H/H, and monitor for further ongoing bleeding. Dr. Stewart is questioned documents examiner this weekend should acute endoscopic need arise, however if he does bleed again would consider CTA abd/pelvis.
--- NOTE | 2023-09-19 17:10 | Surgery Progress Note ---
Date of Service September 19, 2023 Assessment & Plan (1) Melena: Plan: S/p EGD today. An ulcer was identified with no active bleeding. Patient has been started on Protonix and melena has subsided. (2) Altered mental status: Plan: Encephalopathy: Ammonia levels returned to normal today Patient had anesthesia today. In general seems to be improved from the standpoint. (3) Abnormal biliary HIDA scan: Plan: Reveals questionable chronic cholecystitis. No evidence for acute cholecystitis on CT or ultrasound. Patient is asymptomatic. Without evidence of acute cholecystitis would not recommend any sort of intervention at this time. Patient with complicated history and that white blood cell counts have been elevated since April and have tended to bounce around since being treated for CML. Due to his liver disease his bilirubins at baseline are elevated although the does admit that they are slightly more elevated today than they had been in the past. Of note so was the patient's ammonia level. If the patient were to develop acute cholecystitis at any time, would re- evaluate hepatobiliary status for cholecystectomy versus cholecystostomy tube at that time considering liver disease. Admission and Anticipated Discharge Date Admission Date: September 15, 2023 Subjective Mr. Bashir denies abdominal pain, nausea or vomiting. He is status post EGD earlier today at which time a small nonbleeding ulcer was identified. His is at the bedside and helps answer questions as the patient is still slightly groggy from anesthesia versus residual encephalopathy. Physical Exam Constitutional: + obese; not ill appearing, not in distress and not diaphoretic Jaundiced Respiratory: normal respiratory effort; no respiratory distress, no labored breathing and does not use accessory muscles Cardiovascular: Rate/Rhythm: regular rate; not tachycardic Extremities: no calf tenderness Well-perfused Gastrointestinal (Abdomen): Abdomen is soft, protuberant. No tenderness to deep palpation specifically at the right upper quadrant. No guarding. Results & Data Vital Signs (Past 12 Hours) Vital Signs Temp Pulse Pulse Resp BP BP Pulse Ox 09/19/23 15:23 36.3 C L 81 18 125/57 L 98 09/19/23 13:31 81 16 121/54 L 97 09/19/23 11:02 98 H 16 106/54 L 100 09/19/23 10:48 113 H 16 91/67 L 100 09/19/23 10:33 111 H 16 112/80 100 09/19/23 10:02 36.3 C L 86 16 116/49 L 99 09/19/23 07:48 82 09/19/23 07:44 36.3 C L 85 16 126/60 98 O2 Del Method 09/19/23 15:23 Room Air 09/19/23 13:31 Room Air 09/19/23 11:02 Room Air 09/19/23 10:48 Room Air 09/19/23 10:33 Room Air 09/19/23 10:02 Room Air 09/19/23 07:48 09/19/23 07:44 Room Air Laboratory Results WBC: 13.29 T. Bili: 4.2 PG Care Time/CCT Total # of Minutes Spent Total Time Spent with Patient: Total time spent is greater than 50% in coordination of care (as documented) at patient's floor/unit and/or counseling patient: Coding Level of Care Code 04172 SUB INP/OBS CARE 2/35MIN Diagnoses Melena K92.1 Altered mental status R41.82 Abnormal biliary HIDA scan R94.8
--- NOTE | 2023-09-19 18:09 | Hospitalist Progress Note ---
Date of Service September 19, 2023 Assessment & Plan (1) Hepatic encephalopathy: Plan: Metabolic encephalopathyEvidenced by ANNA, hyponatremia, hypomagnesemia, and possible UTI with hepatic encephalopathy Worsening over the last 2 days prior to admission. reports pt may be noncompliant with lactulose. Last BM 2 days prior to admission Also he had been taking benadryl for itching which may be contributing With chronic leukocytosis but no fever. With harsh heart murmur and h/o wound infections of legs--> checked Blood cxs-NGTD UA abnormal, Ur cx with Mercedes albicans, no need to treat Ammonia level 145 on admission and then up further to 163 Moved bowels multiple times and NH3 down to 60, mentation back to baseline -continue lactulose 3 times daily as before, and continue rifaximin -Follow CBC, chemistry profile, ammonia level, magnesium -Follow blood cultures-NGTD -treated for dehydration with IVFs but can resume half dose diuretics tomorrow (2) Acute kidney injury superimposed on CKD: Plan: with manager house 2.25 on admission, 2/2 prerenal, poor po intake last 2 days prior to admission in setting of taking aldactone and bumex diuretics on hold and received 1 L NS--> manager house improved to 1.8 (baseline) has a h/o temporary HD earlier this year follows with Nephrology follow BMP ok to resume half dose of diuretics tomorrow with Bumex 2mg once daily and aldactone 50mg daily (3) GI bleed: Plan: reports a black stool at home, 2 days [employer] Had normal BMs here on 09/16, then black tarry stool witnessed by RN on 09/17 drop in hgb to 8.0--> repeat 4 hours later fairly stable at 8.2 and stable again on 09/18 at 8.0. Now down to 7.5 on 09/19 Consult GI to see about possible EGD-now s/p EGD 09/19 with gastric ulcer nonbleeding Continue PPI gtt and convert to p.o. Protonix likely tomorrow follow CBCnow and again in the a.m. type and crossed for 2 units blood, gave consent for blood transfusion and consent on chart Keep appointments with [facility] in November for EGD and colonoscopy Advance diet to full liquids (4) Anemia: Plan: hgb low at 8.5 on admission, down from 10 about two weeks prior- thought to be from h/o chronic intermittent bleeding, folate deficiency, and anemia of chronic disease has UC and reports dark stool earlier this week and another dark tarry stool here on 09/17 as above hgb as above at 7.5 recent Fe studies, B12, folate all normal follow CBC Plan as above (5) Cirrhosis: Plan: known cirrhosis, follows with [facility] LFTs elevated further than typically, INR 1.6, plts mildly low all consistent w ith previous Na+ a bit lower on arrival due to hypovolemia--> now improved with IVFs continue rifaximin, lactulose as above monitor labs avoid benadryl for itching as caused encephalopathy Appreciate GI consult-checked Abd US which showed cholelithiasis and biliary sludge-checked HIDA scan which shows possible chronic cholecystitis -Consult surgery but is not likely a good candidate for cholecystectomy. He has no abdominal pains or symptoms of cholecystitis and therefore does not need cholecystectomy (6) Murmur: Plan: with h/o mild on ECHO from 01/2023 but murmur quite loud here possibly due to worsening anemia? checked ECHO-mild and mild AI, preserved EF Checked blood cultures-remain NGTD (7) CML (chronic myelocytic leukemia): Plan: not currently getting treatment for this and is in remission based on most recent BCR abl gene testing follows with oncology Does have a chronic leukocytosis as per (8) Atrial flutter: Plan: with a h/o ablation for such Remains in NSR here (9) Ulcerative colitis: Plan: on mesalamine at home which is not available at our pharmacy, has upcoming scope in next few months he was followed by GI in [place] for this prior (10) GERD (gastroesophageal reflux disease): Plan: continue PPI (11) Chronic kidney disease, stage 3a: Plan: with a h/o needing HD earlier in 2022 manager house baseline around 1.8 with ANNA as above now resolved -Avoid nephrotoxins -renally dose meds when appropriate -follow BMP (12) Hypothyroidism: Plan: TSH 4.4 in 04/2023 continue home LT4 (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 (14) Lymphedema: Plan: uses compression and lymphedema therapy wound care consult for cracks in skin of legs and severe ichthyosis (15) Hyponatremia: Plan: Na low on arrival at 126 due to poor po intake in setting of diuretics now normal with NS IVFs and holding diuretics restart diuretics tomorrow at half doses (16) Sacral decubitus ulcer: Plan: Pressure ulcer of buttock Stage 2 POA Wound care consult, offload pressure (17) Chronic cholecystitis: Plan: As above Surgery consult appreciated-no surgery needed Plan DVT proph-hold chemical means due to anemia and GIB Dispo-continued stay, will need PT/OT re-eval tomorrow, possible dc to home in 2 days Discussed care with on phone on 09/17 and again on 09/18, 09/19 Admission and Anticipated Discharge Date Admission Date: September 15, 2023 Subjective Pt had EGD today as hgb dropped and had a black stool last evening. Seen in early evening and he is doing much better mentation crump. No abd pain. Denies SOB but is mildly tachypneic at rest Tele with NSR, rates 70-90s Physical Exam Constitutional: WD/WN, vitals as above Neck: trachea midline, no thyromegaly Respiratory: normal respiratory effort, lungs clear to auscultation Cardiovascular: Rate/Rhythm: regular rate and regular rhythm Heart Sounds: + murmur (3/6 systolic murmur at RUSB) Extremities: + edema (2+ woody edema with thickened cracked skin legs bilat) Gastrointestinal (Abdomen): normal bowel sounds, soft, nontender, no hepatosplenomegaly Musculoskeletal: Extremities: no cyanosis and no clubbing Neurologic: moves all extremities; no focal motor deficits Psychiatric: Orientation: alert, oriented x 3 and cooperative Results & Data Results & Data Vital Signs (Past 12 Hours) Vital Signs Temp Pulse Pulse Resp BP BP Pulse Ox 09/19/23 17:50 89 09/19/23 15:23 36.3 C L 81 18 125/57 L 98 09/19/23 13:31 81 16 121/54 L 97 09/19/23 11:02 98 H 16 106/54 L 100 09/19/23 10:48 113 H 16 91/67 L 100 09/19/23 10:33 111 H 16 112/80 100 09/19/23 10:02 36.3 C L 86 16 116/49 L 99 09/19/23 07:48 82 09/19/23 07:44 36.3 C L 85 16 126/60 98 O2 Del Method 09/19/23 17:50 09/19/23 15:23 Room Air 09/19/23 13:31 Room Air 09/19/23 11:02 Room Air 09/19/23 10:48 Room Air 09/19/23 10:33 Room Air 09/19/23 10:02 Room Air 09/19/23 07:48 09/19/23 07:44 Room Air Laboratory Results CBC, CMP, magnesium reviewed PG Care Time/CCT Total # of Minutes Spent Total Time Spent with Patient: Total time spent is greater than 50% in coordination of care (as documented) at patient's floor/unit and/or counseling patient: Coding Level of Care Code 26276 SUB INP/OBS CARE 3/50MIN Diagnoses Hepatic encephalopathy K76.82 Acute kidney injury superimposed on CKD N17.9; N18.9 GI bleed K92.2 Anemia D64.9 Anemia type: other cause Cirrhosis K74.60 Murmur R01.1 CML (chronic myelocytic leukemia) C92.10 Atrial flutter I48.92 Ulcerative colitis K51.90 GERD (gastroesophageal reflux disease) K21.9 Chronic kidney disease, stage 3a N18.31 Hypothyroidism E03.9 History of malignant neoplasm of appendix Z85.09 Lymphedema I89.0 Hyponatremia E87.1 Sacral decubitus ulcer L89.159 Chronic cholecystitis K81.1 (4) Anemia Anemia type: other cause
[2023-09-19 18:59] LABS: Hematocrit (blood only) 21.9 % (42.0-52.0); Hemoglobin 7.3 g/dl (14.0-18.0); Mean Corpuscular Hemoglobin 34.1 pg (25.0-34.0); Mean Corpuscular Hgb Conc 33.3 g/dL (32.0-36.0); Mean Corpuscular Volume 102.3 fL (80.0-100.0); Mean Platelet Volume 10.1 fL (9.4-12.4); Platelet Count 139 K/uL (130-400); RDW Standard Deviation 62.4 fL (36.4-46.3); Red Blood Count 2.14 M/uL (4.70-6.10); White Blood Count 12.25 K/ul (4.8-10.8)
[2023-09-19] MEDS: LEVOTHYROXINE SODIUM 137 MCG TABLET PO SCH (19:59)
[2023-09-20] MEDS: PANTOprazole 40 MG in DEXTROSE 5% MINI-B 100 ML IV SCH ×5 (01:08→21:19)
[2023-09-20] MEDS ORDERED: Nursing to Pharmacy Communication SCH (05:30)
[2023-09-20 06:56] LABS: Hematocrit (blood only) 19.4 % (42.0-52.0); Hemoglobin 6.8 g/dl (14.0-18.0); Mean Corpuscular Hemoglobin 34.7 pg (25.0-34.0); Mean Corpuscular Hgb Conc 35.1 g/dL (32.0-36.0); Mean Platelet Volume 10.4 fL (9.4-12.4); Platelet Count 141 K/uL (130-400); RDW Coefficient of Variation 16.6 % (11.5-14.5); RDW Standard Deviation 59.6 fL (36.4-46.3); Red Blood Count 1.96 M/uL (4.70-6.10); White Blood Count 12.88 K/ul (4.8-10.8)
[2023-09-20 07:10] LABS: Albumin Globulin Ratio 0.9 (0.9-2); Bilirubin,Total 3.8 mg/dl (0.2-1.0); Calcium 9.2 mg/dl (8.6-10.3); Creatinine Clr Calc Pharmacy 47.1 ml/min; Est GFR (African American) 45.1 ml/min; Est GFR (Non-African American) 38.9 ml/min; Globulin 3.3 gm/dl (2.5-4.0); Magnesium 2.2 mg/dl (1.7-2.4); Potassium 3.9 mmol/L (3.5-5.1); Total Protein 6.3 gm/dl (6.0-8.3)
[2023-09-20 07:13] LABS: Basophils # (auto) 0.09 K/uL (0.00-0.20); Basophils % (auto) 0.7 %; Eosinophils # (auto) 0.72 K/uL (0.00-0.50); Eosinophils % (auto) 5.6 %; Immature Granulocytes # (auto) 0.22 K/uL (0.01-0.20); Immature Granulocytes % (auto) 1.7 %; Lymphocytes % (auto) 24.1 %; Monocytes # (auto) 1.06 K/uL (0.11-0.59); Monocytes % (auto) 8.2 %; Neutrophils # (auto) 7.69 K/uL (1.40-6.50); Neutrophils % (auto) 59.7 %; RBC Morphology Unremarkable
[2023-09-20] MEDS ORDERED: SODIUM CHLORIDE 0.9% 250 ML IV PRN (07:13)
[2023-09-20] MEDS: MAGNESIUM OXIDE 400 MG TAB PO SCH ×2 (08:17→21:21)
[2023-09-20] MEDS: CHOLECALCIFEROL 1,000 UNITS 25 MCG TAB PO SCH (08:18)
[2023-09-20] MEDS: SPIRONOLACTONE 25 MG TAB PO SCH (08:18)
[2023-09-20] MEDS: rifAXIMin 550 MG TABLET PO SCH ×2 (08:18→21:21)
[2023-09-20] MEDS: BUMETANIDE 1 MG TAB PO SCH (08:19)
[2023-09-20] MEDS: METOPROLOL SUCC 25MG EXT REL TAB PO SCH (08:21)
[2023-09-20] MEDS: FOLIC ACID 1 MG TAB PO SCH (08:21)
[2023-09-20] MEDS: allopurinoL 300 MG TAB PO SCH (08:21)
[2023-09-20] MEDS: LACTULOSE SYRUP 30 GM/45 ML UDP PO SCH ×3 (08:22→21:18)
--- NOTE | 2023-09-20 15:50 | Hospitalist Progress Note ---
Date of Service September 20, 2023 Assessment & Plan (1) Hepatic encephalopathy: Plan: Metabolic encephalopathyEvidenced by ANNA, hyponatremia, hypomagnesemia, and possible UTI with hepatic encephalopathy Worsening over the last 2 days prior to admission. reports pt tristin is noncompliant with lactulose. Last BM 2 days prior to admission Also he had been taking benadryl for itching which may be contributing With chronic leukocytosis but no fever. With harsh heart murmur and h/o wound infections of legs--> checked Blood cxs-NGTD UA abnormal, Ur cx with Mercedes albicans, no need to treat Ammonia level 145 on admission and then up further to 163 Moved bowels multiple times and NH3 down to 60, mentation back to baseline -continue lactulose 3 times daily as before, and continue rifaximin -Follow CBC, chemistry profile -Follow blood cultures-NGTD -treated for dehydration with IVFs but have since resumed half dose diuretics on 09/20 (2) Acute kidney injury superimposed on CKD: Plan: with data abstractor 2.25 on admission, 2/2 prerenal, poor po intake last 2 days prior to admission in setting of taking aldactone and bumex diuretics initially on hold and received 1 L NS--> data abstractor improved to 1.8 (baseline) has a h/o temporary HD earlier this year follows with Nephrology follow BMP Resumed half dose of diuretics with Bumex 2mg once daily and aldactone 50mg daily (3) GI bleed: Plan: reports a black stool at home, 2 days ADDICTION THERAPIST Had normal BMs here on 09/16, then black tarry stool witnessed by RN on 09/17 drop in hgb to 8.0--> repeat 4 hours later fairly stable at 8.2 and then dropped to 7.5 GI performed EGD which showed non bleeding gastric ulcer Placed on Protonix gtt Hgb dropped to 6.8 on 09/20 without any further melena-perhaps still equalizing from previous GIB--> Transfused 1 unit PRBCs 09/20 -convert to p.o. Protonix likely tomorrow -follow CBC -Keep appointments with [facility] in November for colonoscopy -Advance diet to low sodium (4) Anemia: Plan: hgb low at 8.5 on admission, down from 10 about two weeks prior- thought to be from h/o chronic intermittent bleeding, folate deficiency, and anemia of chronic disease recent Fe studies, B12, folate all normal With GIB from gastric ulcer as above (5) Cirrhosis: Plan: known cirrhosis, follows with [facility] LFTs elevated further than typically, INR 1.6, plts mildly low all consistent with previous Na+ a bit lower on arrival due to hypovolemia--> now improved with IVFs continue rifaximin, lactulose as above monitor labs avoid benadryl for itching as caused encephalopathy Appreciate GI consult-checked Abd US which showed cholelithiasis and biliary sludge-checked HIDA scan which shows possible chronic cholecystitis -Consult surgery but is not likely a good candidate for cholecystectomy. He has no abdominal pains or symptoms of cholecystitis and therefore does not need cholecystectomy -f/u with Hepatology as outpt (6) Murmur: Plan: with h/o mild on ECHO from 01/2023 but murmur quite loud here possibly due to worsening anemia? checked ECHO-mild and mild AI, preserved EF Checked blood cultures-remain NGTD (7) CML (chronic myelocytic leukemia): Plan: not currently getting treatment for this and is in remission based on most recent BCR abl gene testing follows with oncology Does have a chronic leukocytosis as per (8) Atrial flutter: Plan: with a h/o ablation for such Remains in NSR here Not on anticoagulation due to bleeding risk (9) Ulcerative colitis: Plan: on mesalamine at home which is not available at our pharmacy, has upcoming scope in next few months he was followed by GI in [place] for this prior but has not seen GI locally (except hepatology) (10) Chronic kidney disease, stage 3a: Plan: with a h/o needing HD earlier in 2022 data abstractor baseline around 1.8 with ANNA as above now resolved -Avoid nephrotoxins -renally dose meds when appropriate -follow BMP (11) Hypothyroidism: Plan: TSH 4.4 in 04/2023 continue home LT4 (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 (13) Lymphedema: Plan: uses compression and lymphedema therapy wound care consult for cracks in skin of legs and severe ichthyosis (14) Hyponatremia: Plan: Na low on arrival at 126 due to poor po intake in setting of diuretics now normal with NS IVFs and holding diuretics restarted diuretics at half doses (15) Sacral decubitus ulcer: Plan: Pressure ulcer of buttock Stage 2 POA Wound care consult, offload pressure (16) Chronic cholecystitis: Plan: As above Surgery consult appreciated-no surgery needed Plan DVT proph-hold chemical means due to anemia and GIB Dispo-continued stay, will need PT/OT re-eval tomorrow, may need SNF--> first choice [facility] be [facility]-consult placed to Mammography Technician for this Discussed care with on phone on 09/17 and again on 09/18, 09/19, 09/20 Admission and Anticipated Discharge Date Admission Date: September 15, 2023 Subjective No BM today. No further melena but hgb dropped today to 6.8 and was transfused. He felt better after that and was OOB to chair today. Physical Exam Constitutional: WD/WN, vitals as above Neck: trachea midline, no thyromegaly Respiratory: normal respiratory effort, lungs clear to auscultation Cardiovascular: RRR, no murmur, no edema Rate/Rhythm: regular rate and regular rhythm Heart Sounds: + murmur (3/6 systolic murmur at RUSB) Extremities: + edema (2+ woody edema with thickened cracked skin legs bilat) Gastrointestinal (Abdomen): normal bowel sounds, soft, nontender, no hepatosplenomegaly Musculoskeletal: Extremities: no cyanosis and no clubbing Neurologic: moves all extremities; no focal motor deficits Psychiatric: Orientation: alert, oriented x 3 and cooperative Results & Data Results & Data Vital Signs (Past 12 Hours) Vital Signs Temp Pulse Pulse Resp BP BP BP 09/20/23 15:39 09/20/23 06:00 82 09/20/23 12:04 36.4 C L 79 18 102/63 09/20/23 11:35 36.5 C 82 18 117/64 09/20/23 10:35 36.4 C L 82 18 118/66 09/20/23 10:05 36.5 C 84 18 106/58 L 09/20/23 09:35 36.6 C 82 18 116/61 09/20/23 09:20 36.5 C 81 18 106/62 09/20/23 11:40 36.5 C 82 18 117/64 09/20/23 09:00 36.7 C 90 18 113/61 09/20/23 07:56 36.6 C 81 18 123/57 L 09/20/23 04:00 36.8 C 81 18 125/76 Pulse Ox O2 Del Method 09/20/23 15:39 Room Air 09/20/23 06:00 09/20/23 12:04 100 09/20/23 11:35 99 09/20/23 10:35 98 09/20/23 10:05 98 09/20/23 09:35 97 09/20/23 09:20 99 09/20/23 11:40 99 Room Air 09/20/23 09:00 100 09/20/23 07:56 96 Room Air 09/20/23 04:00 95 Room Air Laboratory Results CBC, CMP, blood cxs reviewed PG Care Time/CCT Total # of Minutes Spent Total Time Spent with Patient: Total time spent is greater than 50% in coordination of care (as documented) at patient's floor/unit and/or counseling patient: Coding Level of Care Code 39666 SUB INP/OBS CARE 2/35MIN Diagnoses Hepatic encephalopathy K76.82 Acute kidney injury superimposed on CKD N17.9; N18.9 GI bleed K92.2 Anemia D64.9 Anemia type: other cause Cirrhosis K74.60 Murmur R01.1 CML (chronic myelocytic leukemia) C92.10 Atrial flutter I48.92 Ulcerative colitis K51.90 Chronic kidney disease, stage 3a N18.31 Hypothyroidism E03.9 History of malignant neoplasm of appendix Z85.09 Lymphedema I89.0 Hyponatremia E87.1 Sacral decubitus ulcer L89.159 Chronic cholecystitis K81.1 (4) Anemia Anemia type: other cause
[2023-09-20] MEDS: LEVOTHYROXINE SODIUM 137 MCG TABLET PO SCH (19:36)
[2023-09-21] MEDS: PANTOprazole 40 MG in DEXTROSE 5% MINI-B 100 ML IV SCH ×2 (02:19→07:26)
[2023-09-21 06:51] LABS: Albumin Globulin Ratio 0.9 (0.9-2); BUN Creatinine Ratio 18.7 (10-20); Bilirubin,Total 3.6 mg/dl (0.2-1.0); Creatinine Clr Calc Pharmacy 41.9 ml/min; Est GFR (African American) 39.6 ml/min; Est GFR (Non-African American) 34.2 ml/min; Globulin 3.2 gm/dl (2.5-4.0); Magnesium 2.1 mg/dl (1.7-2.4); Total Protein 6.2 gm/dl (6.0-8.3)
[2023-09-21 07:45] LABS: Hematocrit (blood only) 21.6 % (42.0-52.0); Hemoglobin 7.5 g/dl (14.0-18.0); Mean Corpuscular Hemoglobin 33.6 pg (25.0-34.0); Mean Corpuscular Hgb Conc 34.7 g/dL (32.0-36.0); Mean Corpuscular Volume 96.9 fL (80.0-100.0); Mean Platelet Volume 9.9 fL (9.4-12.4); Platelet Count 156 K/uL (130-400); RDW Coefficient of Variation 17.9 % (11.5-14.5); Red Blood Count 2.23 M/uL (4.70-6.10)
[2023-09-21 07:49] LABS: INR 1.6 (0.9-1.1); Prothrombin Time 17.1 Seconds (9.0-12.0)
[2023-09-21 07:51] LABS: ALC (manual) 2.01 K/uL (1.2-3.4); ANC (manual) 8.58 K/uL (1.4-6.5); Basophilic Stippling 1+; Basophils # (manual) 0.27 K/uL (0-0.2); Basophils % (manual) 2 %; Eosinophils # (manual) 1.21 K/uL (0-0.50); Eosinophils % (manual) 9 %; Lymphocytes # (manual) 2.01 K/uL (1.2-3.4); Lymphocytes % (manual) 15 %; Macrocytosis Present; Metamyelocytes # (manual) 0.13 K/uL (0-0); Metamyelocytes % (manual) 1 %; Monocytes % (manual) 6 %; Myelocytes % (manual) 3 %; Neutrophils # (manual) 8.58 K/uL (1.40-6.50); Neutrophils % (manual) 64 %; Polychromasia 1+
[2023-09-21] MEDS: allopurinoL 300 MG TAB PO SCH (08:01)
[2023-09-21] MEDS: FOLIC ACID 1 MG TAB PO SCH (08:01)
[2023-09-21] MEDS: rifAXIMin 550 MG TABLET PO SCH ×2 (08:01→20:04)
[2023-09-21] MEDS: MAGNESIUM OXIDE 400 MG TAB PO SCH ×2 (08:01→20:04)
[2023-09-21] MEDS: METOPROLOL SUCC 25MG EXT REL TAB PO SCH (08:02)
[2023-09-21] MEDS: CHOLECALCIFEROL 1,000 UNITS 25 MCG TAB PO SCH (08:02)
[2023-09-21] MEDS: BUMETANIDE 1 MG TAB PO SCH (08:02)
[2023-09-21] MEDS: LACTULOSE SYRUP 30 GM/45 ML UDP PO SCH ×3 (08:03→20:03)
[2023-09-21] MEDS: SPIRONOLACTONE 25 MG TAB PO SCH (08:03)
[2023-09-21 08:11] LABS: Basophilic Stippling 1+; Macrocytosis Present; Polychromasia 1+
[2023-09-21] MEDS: PANTOprazole 40 MG TAB PO SCH ×2 (10:06→20:03)
--- NOTE | 2023-09-21 14:15 | Hospitalist Progress Note ---
Date of Service September 21, 2023 Assessment & Plan (1) Hepatic encephalopathy: Plan: Now resolved. Most recent ammonia level 60. Continue current medical management. Serial labs. (2) Acute kidney injury superimposed on CKD: Plan: Creatinine is now at baseline. Monitor intake and output. Serial labs . Aldactone and Bumex have been down titrated (3) GI bleed: Plan: Suspected. Gastroenterology consultation appreciated. EGD completed this admission with evidence of nonbleeding gastric ulcer. Continue Protonix therapy. Protonix drip switched to oral dosing. (4) Anemia: Plan: Hemoglobin decreased to 6.8. He received 1 unit packed red blood cells yesterday, September 20. Hemoglobin now is 7.5. We will follow. (5) Cirrhosis: Plan: known cirrhosis. Managed by [facility]. Mild coagulopathy as a consequence. INR is mildly elevated. Appreciate GI consult and recom mendations. HIDA scan consistent with chronic cholecystitis. General surgery consultation noted. No indication for cholecystectomy at this time. (6) Murmur: Plan: Cardiac echo reveals mild and mild AI, preserved EF. No intervention necessary at this time. (7) CML (chronic myelocytic leukemia): Plan: not currently getting treatment for this and is in remission based on most recent BCR abl gene testing. Follows with oncology. Does have a chronic leukocy tosis as per (8) Atrial flutter: Plan: with a h/o ablation. Remains in NSR here. Not on anticoagulation due to bleeding risk (9) Ulcerative colitis: Plan: on mesalamine at home which is not available at our pharmacy. Has upcoming colonoscopy in next few months. (10) Chronic kidney disease, stage 3a: Plan: Acute on chronic kidney disease on admission. Creatinine is now back to basel ine. Monitor intake and output. Serial labs (11) Hypothyroidism: Plan: TSH 4.4 in 04/2023. 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 Wound care consulted for skin cracks and severe ichthyosis (14) Hyponatremia: Plan: Normal serum osmolarity. Sodium normalized with IV fluids and holding diuretics. Diuretics have been restarted at lower dosages (15) Sacral decubitus ulcer: Plan: Pressure ulcer of buttock Stage 2 POA. Wound care consult (16) Chronic cholecystitis: Plan: Per HIDA scan. General surgery consultation and recommendations appreciated. No surgical indication at this time Plan Physical therapy recommended rehab placement. However the patient has refused. Hopeful discharge to home tomorrow with home health services, September 22. D iscussed patient care with today, September 22, by phone Admission and Anticipated Discharge Date Admission Date: September 15, 2023 Subjective Alert and oriented. The hepatic encephalopathy appears to have resolved. Most recent ammonia level was down to 60. HIDA scan consistent with chronic cholecystitis. Surgery consultation appreciated. No plan for cholecystectomy at this time. Gastroenterology consultation appreciated. EGD completed this admission with evidence of nonbleeding gastric ulcer. Protonix drip has been switched to oral dosing. Review of Systems Review of Systems: Constitutional-no fever or chills ENT-no blurred vision, no double vision, no epistaxis, no sore throat Respiratory-no cough, no wheezing, no shortness of breath Cardiac-no palpitations, no chest pain, no syncope GI-no nausea, vomiting, diarrhea, melena, hematochezia -no urinary retention, no urinary incontinence, no dysuria, no hematuria Musculoskeletal-no joint pain, no muscle tenderness Skin-no bruising, no rashes, no pruritus Neuro-no isolated weakness, no paresthesia, no weakness Psych-no depression, no anxiety Physical Exam Physical Exam: General-alert and oriented x3, no fevers, no chills HEENT-head atraumatic and normocephalic, pupils equal and reactive to light, extraocular muscles intact Neck-no lymphadenopathy or thyromegaly, trachea midline Chest-clear to auscultation percussion. No rales wheezing or rhonchi Cardiac-regular rate and rhythm, normal S1 and S2 Abdomen-normal bowel sounds, nontender, no hepatosplenomegaly Extremities-no cyanosis, clubbing, or edema Neuro-cranial nerves II through XII intact, motor and sensory function within normal limits, strength symmetrical, no focal deficits Psych-normal affect, normal mood Results & Data Results & Data Vital Signs (Past 12 Hours) Vital Signs Temp Pulse Pulse Resp BP BP Pulse Ox 09/21/23 11:44 36.5 C 74 18 100/54 L 99 09/21/23 07:29 36.8 C 76 18 107/57 L 96 09/21/23 06:52 76 09/21/23 04:00 36.8 C 76 18 123/79 97 09/21/23 04:23 88 O2 Del Method 09/21/23 11:44 Room Air 09/21/23 07:29 Room Air 09/21/23 06:52 09/21/23 04:00 Room Air 09/21/23 04:23 Laboratory Results 09/21/23 05:49 09/21/23 05:49 PG Care Time/CCT Total # of Minutes Spent Total Time Spent with Patient: Total time spent is greater than 50% in coordination of care (as documented) at patient's floor/unit and/or counseling patient: Coding Level of Care Code 60683 SUB INP/OBS CARE 3/50MIN Diagnoses Hepatic encephalopathy K76.82 Acute kidney injury superimposed on CKD N17.9; N18.9 GI bleed K92.2 Anemia D64.9 Anemia type: other cause Cirrhosis K74.60 Murmur R01.1 CML (chronic myelocytic leukemia) C92.10 Atrial flutter I48.92 Ulcerative colitis K51.90 Chronic kidney disease, stage 3a N18.31 Hypothyroidism E03.9 History of malignant neoplasm of appendix Z85.09 Lymphedema I89.0 Hyponatremia E87.1 Sacral decubitus ulcer L89.159 Chronic cholecystitis K81.1 (4) Anemia Anemia type: other cause
[2023-09-21] MEDS: LEVOTHYROXINE SODIUM 137 MCG TABLET PO SCH (20:04)
[2023-09-22 06:27] LABS: Basophils % (auto) 0.8 %; Eosinophils % (auto) 5.3 %; Hematocrit (blood only) 21.2 % (42.0-52.0); Hemoglobin 7.5 g/dl (14.0-18.0); Immature Granulocytes # (auto) 0.31 K/uL (0.01-0.20); Immature Granulocytes % (auto) 2.3 %; Lymphocytes # (auto) 2.46 K/uL (1.20-3.40); Lymphocytes % (auto) 18.6 %; Mean Corpuscular Hgb Conc 35.4 g/dL (32.0-36.0); Mean Corpuscular Volume 93.4 fL (80.0-100.0); Mean Platelet Volume 10.2 fL (9.4-12.4); Monocytes # (auto) 0.98 K/uL (0.11-0.59); Monocytes % (auto) 7.4 %; Neutrophils # (auto) 8.66 K/uL (1.40-6.50); Neutrophils % (auto) 65.6 %; Platelet Count 145 K/uL (130-400); RDW Coefficient of Variation 17.3 % (11.5-14.5); RDW Standard Deviation 58.1 fL (36.4-46.3); Red Blood Count 2.27 M/uL (4.70-6.10); White Blood Count 13.21 K/ul (4.8-10.8)
[2023-09-22 06:40] LABS: BUN Creatinine Ratio 18.1 (10-20); Creatinine Clr Calc Pharmacy 35.8 ml/min; Est GFR (African American) 32.7 ml/min; Est GFR (Non-African American) 28.2 ml/min; Potassium 4.1 mmol/L (3.5-5.1)
[2023-09-22 06:50] LABS: RBC Morphology Unremarkable
[2023-09-22] MEDS: allopurinoL 300 MG TAB PO SCH (08:00)
[2023-09-22] MEDS: MAGNESIUM OXIDE 400 MG TAB PO SCH ×2 (08:00→20:02)
[2023-09-22] MEDS: rifAXIMin 550 MG TABLET PO SCH ×2 (08:00→20:02)
[2023-09-22] MEDS: METOPROLOL SUCC 25MG EXT REL TAB PO SCH (08:01)
[2023-09-22] MEDS: SPIRONOLACTONE 25 MG TAB PO SCH (08:01)
[2023-09-22] MEDS: FOLIC ACID 1 MG TAB PO SCH (08:02)
[2023-09-22] MEDS: BUMETANIDE 1 MG TAB PO SCH (08:02)
[2023-09-22] MEDS: PANTOprazole 40 MG TAB PO SCH ×2 (08:02→20:00)
[2023-09-22] MEDS: CHOLECALCIFEROL 1,000 UNITS 25 MCG TAB PO SCH (08:02)
[2023-09-22] MEDS: LACTULOSE SYRUP 30 GM/45 ML UDP PO SCH ×3 (08:03→20:00)
[2023-09-22] MEDS: SODIUM CHLORIDE 0.9% 1,000 ML IV SCH (09:31)
--- NOTE | 2023-09-22 12:01 | Hospitalist Progress Note ---
Date of Service September 22, 2023 Assessment & Plan (1) Hepatic encephalopathy: Plan: Now resolved. Ammonia level 59 today, September 22. Continue current medical management. Serial labs. (2) Acute kidney injury superimposed on CKD: Plan: Creatinine has risen to 2.3. IV fluids started. Monitor intake and output. Serial labs. Aldactone and Bumex have been down titrated (3) GI bleed: Plan: Suspected. Gastroenterology consultation appreciated. EGD completed this admission with evidence of nonbleeding gastric ulcer. Continue Protonix therapy. Protonix drip has been switched to oral dosing. (4) Anemia: Plan: Hemoglobin decreased to 6.8. He received 1 unit packed red blood cells on September 20. Hemoglobin remains at 7.5. We will follow. (5) Cirrhosis: Plan: known cirrhosis. Man[facility] by [facility]. Mild coagulopathy as a consequence. INR is mildly elevated. Appreciate GI consult and recommendations. HIDA scan consistent with chronic cholecystitis. General surgery consultation noted. No indication for cholecystectomy at this time. (6) Murmur: Plan: Cardiac echo reveals mild and mild AI, preserved EF. No intervention necessary at this time. (7) CML (chronic myelocytic leukemia): Plan: not currently getting treatment for this and is in remission based on most recent BCR abl gene testing. Follows with oncology. Does have chronic leukocytosis as per (8) Atrial flutter: Plan: with a h/o ablation. Remains in NSR here. Not on anticoagulation due to bleeding risk (9) Ulcerative colitis: Plan: on mesalamine at home which is not available at our pharmacy. Has upcoming colonoscopy in next few months. (10) Chronic kidney disease, stage 3a: Plan: Acute on chronic kidney disease on admission. Creatinine is now rising again. IV fluids have been started. Monitor intake and output. Serial labs (11) Hypothyroidism: Plan: TSH 4.4 in 04/2023. 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 Wound care consulted for skin cracks and severe ichthyosis (14) Hyponatremia: Plan: Normal serum osmolarity. Sodium is trending down again. IV fluids have been reordered. Serial labs (15) Sacral decubitus ulcer: Plan: Pressure ulcer of buttock Stage 2 POA. Wound care consult (16) Chronic cholecystitis: Plan: Per HIDA scan. General surgery consultation and recommendations appreciated. No surgical indication at this time Plan Physical therapy recommended rehab placement. However the patient has refused. Hopeful discharge to home tomorrow with home health services, September 23. Discussed patient care with on September 22, by phone Admission and Anticipated Discharge Date Admission Date: September 15, 2023 Subjective Alert and oriented. No distress. Unfortunately his sodium has dropped to 125 and creatinine increased to 2.3. IV fluids ordered. Ammonia remains acceptable at 59. He will not be discharged home today, September 22. Possibly tomorrow. Review of Systems Review of Systems: Constitutional-no fever or chills ENT-no blurred vision, no double vision, no epistaxis, no sore throat Respiratory-no cough, no wheezing, no shortness of breath Cardiac-no palpitations, no chest pain, no syncope GI-no nausea, vomiting, diarrhea, melena, hematochezia -no urinary retention, no urinary incontinence, no dysuria, no hematuria Musculoskeletal-no joint pain, no muscle tenderness Skin-no bruising, no rashes, no pruritus Neuro-no isolated weakness, no paresthesia, no weakness Psych-no depression, no anxiety Physical Exam Physical Exam: General-alert and oriented x3, no fevers, no chills HEENT-head atraumatic and normocephalic, pupils equal and reactive to light, extraocular muscles intact Neck-no lymphadenopathy or thyromegaly, trachea midline Chest-clear to auscultation percussion. No rales wheezing or rhonchi Cardiac-regular rate and rhythm, normal S1 and S2 Abdomen-normal bowel sounds, nontender, no hepatosplenomegaly Extremities-no cyanosis, clubbing, or edema Neuro-cranial nerves II through XII intact, motor and sensory function within normal limits, strength symmetrical, no focal deficits Psych-normal affect, normal mood Results & Data Results & Data Vital Signs (Past 12 Hours) Vital Signs Temp Pulse Pulse Resp BP BP Pulse Ox 09/22/23 11:52 36.7 C 82 18 103/59 L 98 09/22/23 07:25 36.5 C 78 20 120/62 99 09/22/23 07:08 75 09/22/23 04:00 36.9 C 81 18 108/61 98 09/22/23 00:00 36.5 C 81 18 107/62 100 O2 Del Method 09/22/23 11:52 Room Air 09/22/23 07:25 Room Air 09/22/23 07:08 09/22/23 04:00 Room Air 09/22/23 00:00 Room Air Laboratory Results 09/22/23 05:59 09/22/23 05:59 PG Care Time/CCT Total # of Minutes Spent Total Time Spent with Patient: Total time spent is greater than 50% in coordination of care (as documented) at patient's floor/unit and/or counseling patient: Coding Level of Care Code 08320 SUB INP/OBS CARE 3/50MIN Diagnoses Hepatic encephalopathy K76.82 Acute kidney injury superimposed on CKD N17.9; N18.9 GI bleed K92.2 Anemia D64.9 Anemia type: other cause Cirrhosis K74.60 Murmur R01.1 CML (chronic myelocytic leukemia) C92.10 Atrial flutter I48.92 Ulcerative colitis K51.90 Chronic kidney disease, stage 3a N18.31 Hypothyroidism E03.9 History of malignant neoplasm of appendix Z85.09 Lymphedema I89.0 Hyponatremia E87.1 Sacral decubitus ulcer L89.159 Chronic cholecystitis K81.1 (4) Anemia Anemia type: other cause
[2023-09-22] MEDS: LEVOTHYROXINE SODIUM 137 MCG TABLET PO SCH (20:01)
[2023-09-23] MEDS: SODIUM CHLORIDE 0.9% 1,000 ML IV SCH (02:22)
[2023-09-23 06:16] LABS: Hematocrit (blood only) 19.1 % (42.0-52.0); Hemoglobin 6.7 g/dl (14.0-18.0); Mean Corpuscular Hgb Conc 35.1 g/dL (32.0-36.0); Mean Platelet Volume 10.1 fL (9.4-12.4); Platelet Count 126 K/uL (130-400); RDW Coefficient of Variation 17.7 % (11.5-14.5); Red Blood Count 1.97 M/uL (4.70-6.10); White Blood Count 12.46 K/ul (4.8-10.8)
[2023-09-23 06:22] LABS: BUN Creatinine Ratio 21.6 (10-20); Calcium 8.6 mg/dl (8.6-10.3); Creatinine Clr Calc Pharmacy 35.8 ml/min; Est GFR (African American) 32.7 ml/min; Est GFR (Non-African American) 28.2 ml/min; Potassium 4.2 mmol/L (3.5-5.1)
[2023-09-23] MEDS ORDERED: SODIUM CHLORIDE 0.9% 250 ML IV PRN ×3 (06:30→10:10)
[2023-09-23 06:42] LABS: Basophils # (auto) 0.09 K/uL (0.00-0.20); Basophils % (auto) 0.7 %; Eosinophils # (auto) 0.63 K/uL (0.00-0.50); Eosinophils % (auto) 5.1 %; Immature Granulocytes # (auto) 0.32 K/uL (0.01-0.20); Immature Granulocytes % (auto) 2.6 %; Lymphocytes # (auto) 2.49 K/uL (1.20-3.40); Monocytes # (auto) 1.11 K/uL (0.11-0.59); Monocytes % (auto) 8.9 %; Neutrophils # (auto) 7.82 K/uL (1.40-6.50); Neutrophils % (auto) 62.7 %; RBC Morphology Unremarkable
[2023-09-23] MEDS: MAGNESIUM OXIDE 400 MG TAB PO SCH (07:51)
[2023-09-23] MEDS: METOPROLOL SUCC 25MG EXT REL TAB PO SCH (07:51)
[2023-09-23] MEDS: rifAXIMin 550 MG TABLET PO SCH (07:51)
[2023-09-23] MEDS: FOLIC ACID 1 MG TAB PO SCH (07:59)
[2023-09-23] MEDS: PANTOprazole 40 MG TAB PO SCH (07:59)
[2023-09-23] MEDS: allopurinoL 300 MG TAB PO SCH (07:59)
[2023-09-23] MEDS: LACTULOSE SYRUP 30 GM/45 ML UDP PO SCH ×2 (07:59→15:13)
[2023-09-23] MEDS: CHOLECALCIFEROL 1,000 UNITS 25 MCG TAB PO SCH (08:00)
--- NOTE | 2023-09-23 13:13 | Discharge Summary ---
Date of Service September 23, 2023 Admission HPI Per Admitting Provider The patient is a 68-year-old male with a past medical history including malignant neoplasm of the appendix, ulcerative colitis, SVT, ANNA on CKD, cirrhosis, chronic venous insufficiency, PAD, CML, hypothyroidism, hypertension, atrial flutter, GERD and CKD stage IIIa. His family reports that he had been not taking his lactulose as directed, but they were able to get 3 doses in him yesterday and 1 this morning, but with worsening symptoms, they called EMS who brought him to the ED for assessment. They had noted no specific symptoms as far as respiratory difficulties, urinary or GI problems. He has had treatment for a left foot infection, and presently has an Unna boot that he is wearing, getting changed every Friday. The patient himself is not able to contribute significantly to HPI or review of systems due to confusion Principal Diagnosis Hepatic encephalopathy, acute on chronic kidney disease stage III, hyponatremia, hypomagnesemia, acute blood loss anemia secondary to chronic GI bleeding Discharge Exam General-alert and oriented x3, no fevers, no chills HEENT-head atraumatic and normocephalic, pupils equal and reactive to light, extraocular muscles intact Neck-no lymphadenopathy or thyromegaly, trachea midline Chest-clear to auscultation percussion. No rales wheezing or rhonchi Cardiac-regular rate and rhythm, normal S1 and S2 Abdomen-normal bowel sounds, nontender, no hepatosplenomegaly Extremities-no cyanosis, clubbing, or edema Neuro-cranial nerves II through XII intact, motor and sensory function within normal limits, strength symmetrical, no focal deficits Psych-normal affect, normal mood Discharge Data Allergies Allergy/AdvReac Type Severity Reaction Status Date / Time bee venom protein (honey bee) Allergy Severe DYSPNEA;SWE Verified 09/15/23 17:24 LLING latex Allergy Intermediate Rash Verified 09/15/23 17:24 Penicillins Allergy Unknown HAPPENED Verified 09/15/23 17:24 A CHILD Consultations 09/15/23 17:04 ED Decision to Admit Stat 09/17/23 11:47 Consult Gastroenterology Routine 09/18/23 16:26 Consult General Surgery Routine Procedures Performed Operation Date: 09/19/23 16:45 Actual Procedures p EGD Biopsy Cytology - Jose Stewart MD Ordered Studies 09/15/23 14:47 CT head/brain wo con Stat 09/15/23 18:22 CT Abd and Pelvis [CT abd pelvis wo con] Stat 09/18/23 15:47 US abdomen limited Routine Hospital Course (1) Hepatic encephalopathy: Now resolved. Ammonia level has normalized. Continue current medical management. Serial labs. (2) Acute kidney injury superimposed on CKD: Creatinine has risen to 2.3 but has remained stable with IV fluids which have been discontinued. Monitor intake and output. Serial labs. Aldactone and Bumex were temporarily held but will be restarted at discharge (3) GI bleed: Suspected. Gastroenterology consultation appreciated. EGD completed this admission with evidence of nonbleeding gastric ulcer. Continue Protonix therapy. Protonix drip has been switched to oral dosing. (4) Anemia: Hemoglobin decreased to 6.8. He received 1 unit packed red blood cells on September 20. Hemoglobin improved to 7.5 then dropped again today, September 23, to 6.7. He is currently receiving 2 more units of packed red blood cells. This will need to be followed closely as an outpatient (5) Cirrhosis: known cirrhosis. Managed by [facility] Hepatology. Mild coagulopathy as a consequence. INR is mildly elevated. Appreciate GI consult and price mmendations. HIDA scan consistent with chronic cholecystitis. General surgery consultation noted. No indication for cholecystectomy at this time. (6) Murmur: Cardiac echo reveals mild and mild AI, preserved EF. No intervention necessary at this time. (7) CML (chronic myelocytic leukemia): not currently getting treatment for this and is in remission based on most recent BCR abl gene testing. Follows with oncology. Does have chronic leukocytosis as per (8) Atrial flutter: with a h/o ablation. Remains in NSR here. Not on anticoagulation due to GI blood loss (9) Ulcerative colitis: on mesalamine at home which is not available at our pharmacy. Has upcoming colonoscopy in next few months. (10) Chronic kidney disease, stage 3a: Acute on chronic kidney disease on admission. Creatinine sadia to 2.3 but is now stable. IV fluids were administered transiently. Creatinine kidney function will need to be monitored closely as an outpatient (11) Hypothyroidism: TSH 4.4 in 04/2023. 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 In remission (13) Lymphedema: uses compression stockings and lymphedema therapy. Wound care consulted for skin cracks and severe ichthyosis (14) Hyponatremia: Normal serum osmolarity. Low sodium was treated with IV fluids and improved to 127 at the time of discharge. Serial labs (15) Sacral decubitus ulcer: Pressure ulcer of buttock Stage 2 POA. Wound care consult (16) Chronic cholecystitis: Per HIDA scan. General surgery consultation and recommendations appreciated. No surgical indication at this time Plan Home today, September 23, after blood transfusion is completed. Home health services have been requested. He refuses SNF or IPR placement Total Time Total Time Spent Total Time Spent (In Minutes): 45 minutes Discharge Plan Discharge Items Patient Disposition: Home - Home Health Services Reason For Visit: HEPATIC ENCEPHALOPATHY Discharge Diagnosis: Hepatic encephalopathy, acute on chronic kidney disease stage III, acute blood loss anemia due to chronic GI bleeding, hyponatremia, hypomagnesemia, chronic cholecystitis Activity: Resume your previous activity Non-emergency contact: Primary Care Provider Call non-emergency contact if: you have any medication questions Follow-up/Referrals: Francia Ricardo DO [Primary Care Provider] - Diet: Regular and Heart Healthy Addtl Attending Provider Instructions: Kidney function and blood count should be watched closely by primary care provider as an outpatient. Home health services have been requested Pending Studies at Discharge: No Stand-Alone Forms: My [facility] Mophie, Smoking Cessation Medications and DC Order Prescriptions: New pantoprazole 40 mg Tablet,Delayed Release (Dr/Ec) 40 mg PO BID Qty: 60 0RF Continued triamcinolone acetonide 0.1 % ointment 1 applic topical DAILY PRN (Reason: Skin Irritation) Qty: 80 1RF Rx Instructions: Apply topically to legs daily PRN lactulose 10 gram/15 mL (15 mL) solution 30 g PO TID Qty: 750 6RF Rx Instructions: please send for 1 months supply and 6 refills levothyroxine 137 mcg tablet 137 mcg PO QPM Qty: 90 3RF Rx Instructions: Takes 2 hrs after supper mesalamine 0.375 gram capsule,extended release 24hr 1.5 g PO QDL Qty: 360 3RF Rx Instructions: TAKES 4 CAPS. Xifaxan 550 mg tablet 550 mg PO BID Qty: 180 3RF spironolactone 100 mg tablet 100 mg PO QAM Qty: 90 3RF bumetanide 2 mg tablet 2 mg PO BID Qty: 180 3RF allopurinol 300 mg tablet 300 mg PO DAILY Qty: 90 2RF epinephrine [EpiPen 2-Sb] 0.3 mg/0.3 mL auto-injector 0.3 mg IM Q10M PRN (Reason: anaphylaxis) Qty: 2 2RF Rx Instructions: PER PT "OUT DATED, NEED A NEW ONE". cholecalciferol (vitamin D3) 25 mcg (1,000 unit) Capsule 3,000 unit PO QAM Qty: 0 0RF folic acid 1 mg Tablet 1 mg PO QAM Qty: 30 0RF metoprolol succinate 25 mg tablet extended release 24 hr 12.5 mg PO DAILY Rx Instructions: 0.5 tab daily menthol-zinc oxide [Calmoseptine] 0.44-20.6 % ointment 1 applic EXT DIRECTED magnesium oxide 400 mg (241.3 mg magnesium) Tablet 400 mg PO BID Qty: 60 0RF Discharge Orders: Discharge Order (Routine); Ordered 09/23/23 Ordered By: Jose Reyna Admission Data Admit Date/Time: 09/15/23 18:34 Attending Provider: Jose Reyna Admit Provider: Gilberto Tee Primary Care Provider: Francai Ricardo Other Providers: Gilberto Tee ; Jennifer Luna ; Rudy Shah ; [facility] Coding Level of Care Code 59974 INP/OBS DISCH >30 MIN Diagnoses Hepatic encephalopathy K76.82 Acute kidney injury superimposed on CKD N17.9; N18.9 GI bleed K92.2 Anemia D64.9 Anemia type: other cause Cirrhosis K74.60 Murmur R01.1 CML (chronic myelocytic leukemia) C92.10 Atrial flutter I48.92 Ulcerative colitis K51.90 Chronic kidney disease, stage 3a N18.31 Hypothyroidism E03.9 History of malignant neoplasm of appendix Z85.09 Lymphedema I89.0 Hyponatremia E87.1 Sacral decubitus ulcer L89.159 Chronic cholecystitis K81.1
[2023-09-23 14:55] LABS: Hematocrit (blood only) 22.8 % (42.0-52.0); Hemoglobin 7.9 g/dl (14.0-18.0)
== END 2023-09-23 16:20 | disposition home health service (06) | DRG 441 ==
LOC: ED 14:28 → SUATTDRO 18:34 → EDINP 18:34 → 2W 22:26

== ENCOUNTER 2023-10-28 00:43 | Inpatient (IN) ==
[2023-10-28 02:20] LABS: INR 1.7 (0.9-1.1); Partial Thromboplastin Ratio 1.3; Partial Thromboplastin Time 37.6 Seconds (21.0-31.0); Prothrombin Time 18.2 Seconds (9.0-12.0)
[2023-10-28 03:09] LABS: Hematocrit (blood only) 27.8 % (42.0-52.0); Hemoglobin 9.2 g/dl (14.0-18.0); Mean Corpuscular Hemoglobin 32.1 pg (25.0-34.0); Mean Corpuscular Hgb Conc 33.1 g/dL (32.0-36.0); Mean Corpuscular Volume 96.9 fL (80.0-100.0); Mean Platelet Volume 11.8 fL (9.4-12.4); Platelet Count 144 K/uL (130-400); RDW Coefficient of Variation 17.2 % (11.5-14.5); RDW Standard Deviation 61.2 fL (36.4-46.3); Red Blood Count 2.87 M/uL (4.70-6.10); White Blood Count 50.28 K/ul (4.8-10.8)
[2023-10-28 03:18] LABS: Basophils # (auto) 0.06 K/uL (0.00-0.20); Basophils % (auto) 0.1 %; Echinocytes 1+; Eosinophils # (auto) 0.03 K/uL (0.00-0.50); Eosinophils % (auto) 0.1 %; Immature Granulocytes # (auto) 2.07 K/uL (0.01-0.20); Immature Granulocytes % (auto) 4.1 %; Lymphocytes # (auto) 2.24 K/uL (1.20-3.40); Lymphocytes % (auto) 4.5 %; Monocytes # (auto) 3.01 K/uL (0.11-0.59); Neutrophils # (auto) 42.87 K/uL (1.40-6.50); Neutrophils % (auto) 85.2 %; Polychromasia 1+; Toxic Granulation 1+; Toxic Vacuolation 1+
[2023-10-28 03:22] LABS: Bilirubin,Total 4.6 mg/dl (0.2-1.0); Calcium 8.7 mg/dl (8.6-10.3); Potassium 4.4 mmol/L (3.5-5.1)
[2023-10-28 03:28] LABS: Albumin Globulin Ratio 0.8 (0.9-2); BUN Creatinine Ratio 12.4 (10-20); Creatinine Clr Calc Pharmacy 35.7 ml/min; Est GFR (African American) 27.6 ml/min; Est GFR (Non-African American) 23.8 ml/min; Globulin 3.8 gm/dl (2.5-4.0); Total Protein 6.8 gm/dl (6.0-8.3)
[2023-10-28 04:04] LABS: Troponin I High Sensitivity 75.1 pg/ml (0-20)
[2023-10-28] MEDS ORDERED: CEFEPIME 1,000 MG in SYRINGE 0 ML IV STA (04:26)
[2023-10-28] MEDS ORDERED: LINEZOLID 600 MG/300 ML BAG IV STA (04:27)
[2023-10-28] MEDS ORDERED: FUROSEMIDE 40 MG/4 ML VIAL IV ONE (04:30)
[2023-10-28] MEDS ORDERED: ALBUMIN 25% 25 GM/100 ML VIAL IV ONE (04:30)
[2023-10-28 05:17] LABS: Adenovirus PCR Not Detected (NotDetected); Bordetella parapertussis PCR Not Detected (NotDetected); Bordetella pertussis PCR Not Detected (NotDetected); Chlamydia pneumoniae PCR Not Detected (NotDetected); Coronavirus 229E PCR Not Detected (NotDetected); Coronavirus CoV-2 (COVID19)PCR Not Detected (NotDetected); Coronavirus HKU1 PCR Not Detected (NotDetected); Coronavirus NL63 PCR Not Detected (NotDetected); Coronavirus OC43PCR Not Detected (NotDetected); Human Metapneumovirus PCR Not Detected (NotDetected); Influenza A PCR Not Detected (NotDetected); Influenza B PCR Not Detected (NotDetected); Mycoplasma pneumoniae PCR Not Detected (NotDetected); Parainfluenza Virus 1 PCR Not Detected (NotDetected); Parainfluenza Virus 2 PCR Not Detected (NotDetected); Parainfluenza Virus 3 PCR Not Detected (NotDetected); Parainfluenza Virus 4 PCR Not Detected (NotDetected); Respiratory Syncytial VirusPCR Not Detected (NotDetected); Rhinovirus/Enterovirus PCR Not Detected (NotDetected)
[2023-10-28] MEDS ORDERED: ONDANSETRON INJ 2 MG/ML 2 ML VIAL IV PRN (05:21)
[2023-10-28] MEDS ORDERED: ACETAMINOPHEN 325 MG TAB PO PRN (05:21)
--- NOTE | 2023-10-28 06:37 | History & Physical Report ---
Date of Service October 28, 2023 Assessment & Plan (1) Hepatic encephalopathy: (2) Right heart failure: (3) Hyponatremia: (4) Volume overload: (5) Stage 3b chronic kidney disease: (6) Ulcerative colitis: (7) Cirrhosis: (8) CML (chronic myelocytic leukemia): (9) Anasarca: Plan CML- WBC on 10/22/2023 was 11.7 with percentage neutrophils 66.5 WBC today was 50.28 with percentage neutrophils 85.2 Patient is status post bone marrow biopsy on 10/22/2023 which showed mild hypercellular marrow at 60% with trilineage hematopoiesis. No evidence of active chronic myeloid leukemia or myelodysplasia. There was a hint of rouleaux in the peripheral blood and some of the plasma cells have atypical morphology though they are not increased. Flow cytometry did not reveal any plasma cell clones though SPEP is recommended just to exclude a monoclonal protein Consult oncology, patient follows with Dr. Lima Cirrhosis/anasarca/ulcerative colitis/history of hepatic encephalopathy/anasarca/pulmonary edema/coagulopathy- Patient is showing signs of fluid overload. Sodium 125, serum osmolality 280, urine osmolality pending. Will give albumin 25 g IV x 1 followed by furosemide 40 mg IV x 1 and follow response Total bilirubin of 4.6 consistent with his previous diagnosis of Gilbert's Add ammonia level to current labs Continue lactulose, folic acid, mesalamine, rifaximin, spironolactone Will need to add back in oral Bumex after assessing response to IV Lasix Follow serial CBC with differential, chemistry profile and magnesium level. Follow ammonia level if abnormal INR 1.7 on admission, follow serially, no signs of bleeding at this time Bilateral lower extremity cellulitis/chronic venous insufficiency- Given albumin and Lasix IV above as noted Placed on Zyvox 60 mg IV every 12 hours and cefepime 2 g IV every 12 hours empirically x 48 hours Both antibiotics to cover potential secondary pulmonary process as well Elevated troponin- Initial troponin 75.1, with follow-up 59.1, likely supply/demand mismatch, follow serially Admission and Anticipated Discharge Date Admission Date: October 28, 2023 History of Present Illness Chief Complaint: The patient presents to the emergency department with several days of worsening shortness of breath, dyspnea on exertion, generalized fatigue and weakness, and leg swelling Primary Care Provider: Francia Ricardo, DO The patient is a 68-year-old male with a past medical history including CML in remission, hepatic encephalopathy, right heart failure, supraventricular tachycardia, status post insertion of dialysis catheter, ANNA on CKD, chronic venous insufficiency, hypertension, mild aortic stenosis, and trifascicular block. He presents to the emergency department with the above symptoms. The patient appears lethargic, but is not confused or disoriented Allergies Allergy/AdvReac Type Severity Reaction Status Date / Time bee venom protein (honey bee) Allergy Severe DYSPNEA;SWE Verified 10/20/23 10:08 LLING latex Allergy Intermediate Rash Verified 10/20/23 10:08 Penicillins Allergy Unknown HAPPENED Verified 10/20/23 10:08 A CHILD Home Medications Medication Instructions Recorded Confirmed Type epinephrine 0.3 mg/0.3 mL 0.3 mg (0.3 mL) IM Q10M PRN 08/06/21 10/20/23 Rx injection, auto-injector (EpiPen anaphylaxis #2 ea 2-Sb) menthol 0.44 %-zinc oxide 20.6 % 1 applic EXT DIRECTED 09/17/22 10/20/23 History topical ointment (Calmoseptine) magnesium oxide 400 mg (241.3 mg 400 mg PO BID #60 tabs 01/28/23 10/20/23 Rx magnesium) tablet cholecalciferol (vitamin D3) 25 3,000 unit PO QAM #0 caps 03/08/23 10/20/23 Rx mcg (1,000 unit) capsule folic acid 1 mg tablet 1 mg PO QAM #30 tabs 03/08/23 10/20/23 Rx lactulose 10 gram/15 mL (15 mL) 30 g (45 mL) PO TID #750 mL 03/31/23 10/20/23 Rx oral solution levothyroxine 137 mcg tablet 137 mcg PO QPM #90 tabs 03/31/23 10/20/23 Rx mesalamine 0.375 gram 1.5 g (4 x 0.375 gram) PO QDL #360 03/31/23 10/20/23 Rx capsule,extended release 24 hr caps rifaximin 550 mg tablet (Xifaxan) 550 mg PO BID #180 tabs 03/31/23 10/20/23 Rx spironolactone 100 mg tablet 100 mg PO QAM #90 tabs 07/22/23 10/20/23 Rx bumetanide 2 mg tablet 2 mg PO BID #180 tabs 08/07/23 10/20/23 Rx allopurinol 300 mg tablet 300 mg PO DAILY #90 tabs 09/15/23 10/20/23 Rx metoprolol succinate 25 mg 12.5 mg PO DAILY 09/15/23 10/20/23 History tablet,extended release 24 hr pantoprazole 40 mg tablet,delayed 40 mg PO BID #180 tabs 09/30/23 10/20/23 Rx release triamcinolone acetonide 0.1 % 1 applic topical DAILY PRN Skin 10/07/23 10/20/23 Rx topical ointment Irritation #80 grams Past Med/Surg History Medical History (Updated 10/28/23 @ 06:23 by Gilberto Tee MD) Stage 3b chronic kidney disease Volume overload Hyponatremia Ulcerative colitis Cirrhosis Anasarca CML (chronic myelocytic leukemia) no chemo at present Sacral decubitus ulcer PAD (peripheral artery disease) Murmur Mild aortic regurgitation Mild aortic stenosis History of malignant neoplasm of appendix History of supraventricular tachycardia Anemia Pulmonary embolism Aug 2022 > was treated with Eliquis and now finished Vitamin D deficiency Right heart failure GERD (gastroesophageal reflux disease) Pulmonary edema Bacteremia Chronic kidney disease, stage 3a follows with Dr. Giraldo Pressure ulcer of buttock Venous ulcers of both lower extremities Trifascicular block follows with Dr. Painter SVT (supraventricular tachycardia) 01/21/2012: Ablation of typical slow fast AVNRT [facility] Atrial flutter 10/02/2020: Ablation of typical right atrial isthmus dependent flutter. [facility] Lymphedema Hypertension Hypothyroidism Paroxysmal A-fib resolved with ablation Surgical History (Updated 10/03/23 @ 00:11 by Background Daestelaon) History of esophagogastroduodenoscopy (EGD) History of colonoscopy (2014) History of tooth extraction History of appendectomy H/O lymph node excision (~2011) 36 total H/O right hemicolectomy (~2011) 36 lymph nodes removed as well S/P ablation of atrial fibrillation 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) H/O hernia repair (12/04/12) Status post ablation of atrial flutter (12/04/12) 2019 H/O laparoscopy History of removal of Port-a-Cath H/O left knee surgery Family History Grandmother (Paternal) Colorectal cancer Father Myocardial infarction Prostate cancer Denies family history of Ovarian cancer Dementia Breast cancer Social History Smoking Status: Never smoker Second Hand Exposure: No; Do You Dip or Chew Tobacco: No; Hx Alcohol Use: No Hx Substance Use: No Preferred Language: [place] Communication Ability: Effective Communication Ability Comment: Altered Visual Impairment: Limited Hearing Ability: Normal Director Institution Required: No Beliefs That Will Affect Care: None marital status: Current Living Situation: Spouse Current Living Situation Comment: Lives with who has her own healthcare issues 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 How many Children do You have: 2 Feels Safe at Home: Yes Childhood Exposure to Second-Hand Smoke: No Diet: low salt and other Diet Comment: 2000 cc fluid restriction during the past year weight has: increased > 10 lbs Dental Care, Regularly: Yes Physical Activity Frequency: Daily Seatbelt Use: always Sunscreen Use: Yes Assistive Devices: Cane and Lift Chair Review of Systems Review of Systems: The patient denies chest pain, palpitations, cough, sore throat, fevers, chills, sweats, nausea, vomiting, diarrhea , constipation, abdominal pain, pelvic pain, blood in urine or stool, dysuria, urinary frequency or urgency, memory loss, loss of consciousness, rash, abnormal bruising or bleeding, focal weakness, numbness or tingling in arms or legs, generalized arthralgias or myalgias, back or neck pain, or night sweats. The review of systems is otherwise negative other than for that already noted above, and at least 10 systems have been reviewed. Physical Exam Physical Exam: The patient is awake, alert and oriented 3, well developed and well nourished, normocephalic and atraumatic, lying in bed and in no acute distress. HEENT--PERRL, EOMI, mucous membranes and oropharynx dry. Neck--supple. No JVD. No bruits. Thyroid normal, trachea midline, no adenopathy. Heart--normal S1 and S2. No murmurs, rubs or gallops. Lungs--clear bilaterally, no respiratory distress, no accessory muscle use. Abdomen--normal bowel sounds and soft. Nontender. Nondistended, no hernias or masses, no organomegaly. Extremities--no cyanosis or clubbing. No edema. There are good distal pulses b/l. Dermatologic--normal skin turgor, normal color, no abnormal lymph nodes, no rash. Neurologic--cranial nerves II through XII grossly intact. Rheumatologic--normal range of motion. Psychiatric--appears very fatigued Results & Data Results & Data Vital Signs (Past 12 Hours) Vital Signs Temp Pulse Pulse Resp BP BP Pulse Ox 10/28/23 04:39 96 H 20 98/46 L 95 10/28/23 04:00 97 H 22 104/56 L 96 10/28/23 03:30 96 H 22 98/71 L 94 10/28/23 03:00 101 H 20 108/49 L 96 10/28/23 02:30 98 H 19 113/48 L 95 10/28/23 02:20 101 H 22 88 L 10/28/23 02:10 101 H 21 95 10/28/23 02:00 102 H 22 117/54 L 95 10/28/23 01:50 104 H 25 H 91 10/28/23 01:40 103 H 26 H 97 10/28/23 01:30 103 H 24 112/62 92 10/28/23 01:20 103 H 25 H 95 10/28/23 01:19 103 H 94 10/28/23 01:10 105 H 24 95 10/28/23 01:10 103 H 21 113/48 L 93 10/28/23 01:10 93 10/28/23 01:00 107 H 22 119/60 96 10/28/23 00:59 36.5 C 106 H 26 H 131/67 93 10/28/23 00:51 106 H 20 131/67 92 10/28/23 00:50 107 H O2 Del Method 10/28/23 04:39 10/28/23 04:00 10/28/23 03:30 10/28/23 03:00 10/28/23 02:30 10/28/23 02:20 Room Air 10/28/23 02:10 Room Air 10/28/23 02:00 Room Air 10/28/23 01:50 Room Air 10/28/23 01:40 Room Air 10/28/23 01:30 Room Air 10/28/23 01:20 Room Air 10/28/23 01:19 Room Air 10/28/23 01:10 Room Air 10/28/23 01:10 Room Air 10/28/23 01:10 Room Air 10/28/23 01:00 Room Air 10/28/23 00:59 Room Air 10/28/23 00:51 Room Air 10/28/23 00:50 Laboratory Results Laboratory Results WBC 50.28 K/ul (4.8-10.8) H* 10/28/23 01:00 RBC 2.87 M/uL (4.70-6.10) L 10/28/23 01:00 Hgb 9.2 g/dl (14.0-18.0) L 10/28/23 01:00 Hct 27.8 % (42.0-52.0) L 10/28/23 01:00 MCV 96.9 fL (80.0-100.0) 10/28/23 01:00 MCH 32.1 pg (25.0-34.0) 10/28/23 01:00 MCHC 33.1 g/dL (32.0-36.0) 10/28/23 01:00 RDW Std Deviation 61.2 fL (36.4-46.3) H 10/28/23 01:00 RDW Coeff of Howie 17.2 % (11.5-14.5) H 10/28/23 01:00 Plt Count 144 K/uL (130-400) 10/28/23 01:00 MPV 11.8 fL (9.4-12.4) 10/28/23 01:00 Immature Gran % (Auto) 4.1 % 10/28/23 01:00 Neut % (Auto) 85.2 % 10/28/23 01:00 Lymph % (Auto) 4.5 % 10/28/23 01:00 [place] % (Auto) 6.0 % 10/28/23 01:00 Eos % (Auto) 0.1 % 10/28/23 01:00 Baso % (Auto) 0.1 % 10/28/23 01:00 Neut # (Auto) 42.87 K/uL (1.40-6.50) H 10/28/23 01:00 Lymph # (Auto) 2.24 K/uL (1.20-3.40) 10/28/23 01:00 [place] # (Auto) 3.01 K/uL (0.11-0.59) H 10/28/23 01:00 Eos # (Auto) 0.03 K/uL (0.00-0.50) 10/28/23 01:00 Baso # (Auto) 0.06 K/uL (0.00-0.20) 10/28/23 01:00 Immature Gran # (Auto) 2.07 K/uL (0.01-0.20) H 10/28/23 01:00 Toxic Granulation 1+ 10/28/23 01:00 Toxic Vacuolation 1+ 10/28/23 01:00 Polychromasia 1+ 10/28/23 01:00 Echinocytes 1+ 10/28/23 01:00 PT 18.2 Seconds (9.0-12.0) H 10/28/23 01:00 INR 1.7 (0.9-1.1) H 10/28/23 01:00 APTT 37.6 Seconds (21.0-31.0) H 10/28/23 01:00 PTT Ratio 1.3 10/28/23 01:00 Sodium 125 mmol/L (136-145) L 10/28/23 01:00 Potassium 4.4 mmol/L (3.5-5.1) 10/28/23 01:00 Chloride 91 mmol/L (98-107) L 10/28/23 01:00 Carbon Dioxide 19 mmol/L (21-32) L 10/28/23 01:00 Anion Gap 15 (3-11) H 10/28/23 01:00 BUN 33 mg/dl (6-23) H 10/28/23 01:00 Creatinine 2.67 mg/dl (0.6-1.4) H 10/28/23 01:00 Est Cr Clr Drug Dosing 35.7 ml/min 10/28/23 01:00 Est GFR ( Amer) 27.6 ml/min 10/28/23 01:00 Est GFR (Non-Af Amer) 23.8 ml/min 10/28/23 01:00 BUN/Creatinine Ratio 12.4 (10-20) 10/28/23 01:00 Glucose 128 mg/dl (70-99(Fasting)) H 10/28/23 01:00 Osmolality 280 mOsm/kg (280-300) 10/28/23 01:00 Lactate 6.8 mmol/L (0.4-2.0) H* 10/28/23 04:04 Calcium 8.7 mg/dl (8.6-10.3) 10/28/23 01:00 Total Bilirubin 4.6 mg/dl (0.2-1.0) H 10/28/23 01:00 AST 39 U/L (13-39) 10/28/23 01:00 ALT 16 U/L (7-52) 10/28/23 01:00 Alkaline Phosphatase 58 U/L (34-104) 10/28/23 01:00 Ammonia 63.0 umol/L (18-72) 10/28/23 04:51 Troponin I High Sens 59.1 pg/ml (0-20) H* D 10/28/23 04:04 Total Protein 6.8 gm/dl (6.0-8.3) 10/28/23 01:00 Albumin 3.0 gm/dl (3.4-5.0) L 10/28/23 01:00 Globulin 3.8 gm/dl (2.5-4.0) 10/28/23 01:00 Albumin/Globulin Ratio 0.8 (0.9-2) L 10/28/23 01:00 Lipase 14 U/L (11-82) 10/28/23 01:00 Procalcitonin 119.93 ng/ml (0-0.5) H 10/28/23 01:00 Adenovirus (PCR) Not Detected (NotDetected) 10/28/23 04:05 B. pertussis DNA (PCR) Not Detected (NotDetected) 10/28/23 04:05 B.parapertussis DNA PCR Not Detected (NotDetected) 10/28/23 04:05 C. pneumoniae DNA (PCR) Not Detected (NotDetected) 10/28/23 04:05 Coronavirus OC43 (PCR) Not Detected (NotDetected) 10/28/23 04:05 Coronavirus HKU1 (PCR) Not Detected (NotDetected) 10/28/23 04:05 Coronavirus 229E (PCR) Not Detected (NotDetected) 10/28/23 04:05 SARS-CoV-2 (PCR) Not Detected (NotDetected) 10/28/23 04:05 Coronavirus NL63 (PCR) Not Detected (NotDetected) 10/28/23 04:05 Human Metapneumovir PCR Not Detected (NotDetected) 10/28/23 04:05 Influenza Type A (PCR) Not Detected (NotDetected) 10/28/23 04:05 Influenza Type B (PCR) Not Detected (NotDetected) 10/28/23 04:05 M. pneumoniae (PCR) Not Detected (NotDetected) 10/28/23 04:05 Parainfluenza 1 (PCR) Not Detected (NotDetected) 10/28/23 04:05 Parainfluenza 2 (PCR) Not Detected (NotDetected) 10/28/23 04:05 Parainfluenza 3 (PCR) Not Detected (NotDetected) 10/28/23 04:05 Parainfluenza 4 (PCR) Not Detected (NotDetected) 10/28/23 04:05 RSV (PCR) Not Detected (NotDetected) 10/28/23 04:05 Entero/Rhino (PCR) Not Detected (NotDetected) 10/28/23 04:05 Code Status & VTE Plan Code Status Full code VTE Prophylaxis Plan VTE Prophylaxis will be ordered: Yes PG Care Time/CCT Total # of Minutes Spent Total Time Spent with Patient: Total time spent is greater than 50% in coordination of care (as documented) at patient's floor/unit and/or counseling patient: Coding Level of Care Code 21140 INT INP/OBS CARE 3/75MIN Diagnoses Hepatic encephalopathy K76.82 Right heart failure I50.810 Hyponatremia E87.1 Volume overload E87.70 Stage 3b chronic kidney disease N18.32 Ulcerative colitis K51.90 Cirrhosis K74.60 CML (chronic myelocytic leukemia) C92.10 Anasarca R60.1
--- NOTE | 2023-10-28 07:01 | XRay Report ---
XR chest 1V portable HISTORY: Chest pain, nonspecific COMPARISON: Chest 10/01/2023. FINDINGS: No pneumothorax. There are low lung volumes. The heart remains enlarged. There is interstit ial/vascular thickening consistent with congestive change. This has slightly progressed. Probable tra ce left pleural effusion. Left basilar linear densities favor subsegmental atelectasis. This remains unchanged. IMPRESSION: 1. Cardiomegaly and pulmonary vascular congestion which has slightly progressed. 2. Trace left pleural effusion and left basilar densities suggestive of subsegmental atelectasis. ACT 112: Negative or not required by law. Electronically signed by: Mario Campbell M.D. 10/28/2023 7:00 AM
--- NOTE | 2023-10-28 07:10 | Emergency Department Note ---
Impression & Plan Chest pain, Leukocytosis, Acute hyponatremia [facility] Provider Note NAME: EMILY MUÑOZ AGE: 68 SEX: Male INFORMANT: Patient ED PROVIDER(S): Hilda Burciaga DO CHIEF COMPLAINT: Chest pain PLAN: Disposition: [facility] MEDICAL DECISION MAKING: This is a 68-year-old male patient who presents to the emergency department with fairly sudden onset of chest discomfort since 11:45 PM. He rates his pain as a 7/10. Patient states that he has had diffuse bodyaches and chills throughout the evening and noticed increased thirst. The patient describes severe diarrhea over the past 24 hours. Laboratory studies reveal a white blood cell count of 50.2. This is an increase up from 11.7 on October 22. The patient is anemic with a hemoglobin of 9.2 and a platelet count of 144. Patient is noted to be hyponatremic with a sodium of 125. BUN of 33 and a creatinine of 2.6. Lactate is 6.8 and procalcitonin is 119. Bio fire testing is negative. Troponin was 59. The patient remained hemodynamically stable. I discussed the case with the [facility] hospitalist. Care/management discussed with: manager marketing and the [facility] Hospitalist. Level of care consideration(s): After review of the information above and other included data, I feel the patient can be managed safely as an outpatient/could have required admission but improved significantly and is stable for discharge/requires escalation of care to admission. Triage Nursing notes: Reviewed and agree with them. Vital Signs: reviewed and remarkable for tachycardia Chronic Medical/Social Conditions affecting care: Remote history of CML Differential Diagnosis: Cardiac ischemia, aortic dissection, GERD, pneumonia, sepsis Diagnostics, independently interpreted by me: ECG: Sinus tachycardia at a rate of 106 with PACs. There is no ST segment elevation or signs of ischemia Cardiac Monitoring: Sinus tachycardia at 106 Imaging studies: Portable chest x-ray: Cardiomegaly with pulmonary vascular congestion as per my independent interpretation HPI: 68 year old Male arrives for evaluation of chest pain. Patient describes generalized weakness over the past 24-48 hours but developed fairly sudden onset of chest pain around 1145 tonight that he rates as a 7/10. He does describe increased thirst over the past 24 hours and significant diarrhea. PAST MEDICAL HISTORY: See Below, PAST SURGICAL HISTORY: See Below, SOCIAL HISTORY: See Below, HOME MEDICATIONS: See list ALLERGIES: See list VITALS: See Below PHYSICAL EXAMINATION: HEENT: Head - normocephalic and atraumatic. Pupils are equal, round, and reactive to light. Extraocular eye muscles are intact, and sclera are anicteric. Nose - moist nasal mucosa without discharge. Mouth - moist buccal mucosa. Oropharynx is nonerythematous and there is no tonsillar exudate or edema noted. Neck: Supple; no JVD or cervical lymphadenopathy Heart: Tachycardic rate and regular rhythm. There is a normal S1 and S2 with no murmurs, clicks, or gallops appreciated. Lungs: Clear to auscultation bilaterally with no wheezes, rales, or rhonchi. Abdomen: Soft, completely nontender, nondistended, with good bowel sounds. There are no palpable pulsatile masses or hepatosplenomegaly. There is no guarding, rigidity, or rebound noted. Extremities: Patient has significant edema noted consistent with anasarca Skin: Pale, jaundiced, anasarca Emergency department course: The patient was evaluated in room B-6. A complete history and physical was performed. Previous like chronic medical records were reviewed. An order was placed for continuous cardiac monitoring. The patient was in a sinus tachycardia at a rate of 106. A twelve-lead EKG was obtained as described above. Laboratory studies were drawn as above. Portable chest x-ray was performed. 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 Giraldo Pressure ulcer of buttock Venous ulcers of both lower extremities Trifascicular block follows with Dr. Painter SVT (supraventricular tachycardia) 01/21/2012: Ablation of typical slow fast AVNRT [facility] Atrial flutter 10/02/2020: Ablation of typical right atrial isthmus dependent flutter. 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) H/O hernia repair (12/04/12) Status post ablation of atrial flutter (12/04/12) 2019 H/O laparoscopy History of removal of Port-a-Cath H/O left knee surgery Family History Grandmother (Paternal) Colorectal cancer Father Myocardial infarction Prostate cancer Denies family history of Ovarian cancer Dementia Breast cancer Social History Smoking Status: Never smoker Second Hand Exposure: No; Do You Dip or Chew Tobacco: No; Hx Alcohol Use: Yes Alcohol type: beer Hx Substance Use: No Preferred Language: Algerian Communication Ability: Effective Communication Ability Comment: Altered Visual Impairment: Limited Hearing Ability: Normal Statistical Geneticist Required: No Beliefs That Will Affect Care: None marital status: Current Living Situation: Spouse Current Living Situation Comment: Lives with who has her own healthcare issues 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 How many Children do You have: 2 Feels Safe at Home: Yes Childhood Exposure to Second-Hand Smoke: No Diet: low salt and other Diet Comment: 2000 cc fluid restriction during the past year weight has: increased > 10 lbs Dental Care, Regularly: Yes Physical Activity Frequency: Daily Seatbelt Use: always Sunscreen Use: Yes Assistive Devices: Cane and Lift Chair Allergies Allergies Allergy/AdvReac Type Severity Reaction Status Date / Time bee venom protein (honey bee) Allergy Severe DYSPNEA;SWE Verified 10/28/23 10:17 LLING latex Allergy Intermediate Rash Verified 10/28/23 10:17 Penicillins Allergy Unknown HAPPENED Verified 10/28/23 10:17 A CHILD Home Meds Home Medications Medication Instructions Recorded Confirmed menthol 0.44 %-zinc oxide 20.6 % 1 applic EXT DIRECTED 09/17/22 10/28/23 topical ointment (Calmoseptine) metoprolol succinate 25 mg 12.5 mg PO DAILY 09/15/23 10/28/23 tablet,extended release 24 hr Previous Rx's Medication Instructions Recorded epinephrine 0.3 mg/0.3 mL 0.3 mg (0.3 mL) IM Q10M PRN 08/06/21 injection, auto-injector (EpiPen anaphylaxis #2 ea [id number]) magnesium oxide 400 mg (241.3 mg 400 mg PO BID #60 tabs 01/28/23 magnesium) tablet cholecalciferol (vitamin D3) 25 3,000 unit PO QAM #0 caps 03/08/23 mcg (1,000 unit) capsule folic acid 1 mg tablet 1 mg PO QAM #30 tabs 03/08/23 lactulose 10 gram/15 mL (15 mL) 30 g (45 mL) PO TID #750 mL 03/31/23 oral solution levothyroxine 137 mcg tablet 137 mcg PO QPM #90 tabs 03/31/23 mesalamine 0.375 gram 1.5 g (4 x 0.375 gram) PO QDL #360 03/31/23 capsule,extended release 24 hr caps rifaximin 550 mg tablet (Xifaxan) 550 mg PO BID #180 tabs 03/31/23 spironolactone 100 mg tablet 100 mg PO QAM #90 tabs 07/22/23 bumetanide 2 mg tablet 2 mg PO BID #180 tabs 08/07/23 allopurinol 300 mg tablet 300 mg PO DAILY #90 tabs 09/15/23 pantoprazole 40 mg tablet,delayed 40 mg PO BID #180 tabs 09/30/23 release triamcinolone acetonide 0.1 % 1 applic topical DAILY PRN Skin 10/07/23 topical ointment Irritation #80 grams Results & Data (ED) Vital Signs Vital Signs - 24 hr 10/28/23 00:45 10/28/23 00:50 10/28/23 00:51 Temperature Temperature Source Pulse Rate 107 H 106 H Pulse Rate [Right Finger] Pulse Rate from SpO2 Sensor 106 H Pulse Rhythm Pulse Rhythm [Right Finger] Pulse Strength [Right Finger] Respiratory Rate 20 Respiratory Effort / Characteristics Non-Labored Spontaneous Respiratory Depth Respiratory Pattern Blood Pressure 131/67 Blood Pressure [Right Arm] Blood Pressure Mean 88 Blood Pressure Mean [Right Arm] Blood Pressure Position Blood Pressure Position [Right Arm] Pulse Oximetry 92 Oxygen Delivery Method Room Air Sepsis Recent Fever Within 48 Hours Sepsis New/Unexplained Change in Mental Status Sepsis Action Taken by Nursing 10/28/23 00:59 10/28/23 01:00 10/28/23 01:10 Temperature 36.5 C Temperature Source Oral Pulse Rate 106 H 107 H Pulse Rate [Right Finger] Pulse Rate from SpO2 Sensor 107 H Pulse Rhythm Regular Pulse Rhythm [Right Finger] Pulse Strength [Right Finger] Respiratory Rate 26 H 22 Respiratory Effort / Characteristics Non-Labored Spontaneous Respiratory Depth Normal Respiratory Pattern Regular Blood Pressure 131/67 119/60 Blood Pressure [Right Arm] Blood Pressure Mean 88 79 Blood Pressure Mean [Right Arm] Blood Pressure Position Lying Blood Pressure Position [Right Arm] Pulse Oximetry 93 96 93 Oxygen Delivery Method Room Air Room Air Room Air Sepsis Recent Fever Within 48 Hours No Sepsis New/Unexplained Change in Mental Status No Sepsis Action Taken by Nursing No Action Required 10/28/23 01:10 10/28/23 01:10 10/28/23 01:19 Temperature Temperature Source Pulse Rate 105 H 103 H Pulse Rate [Right Finger] 103 H Pulse Rate from SpO2 Sensor 105 H Pulse Rhythm Regular Pulse Rhythm [Right Finger] Regular Pulse Strength [Right Finger] Normal Respiratory Rate 21 24 Respiratory Effort / Characteristics Non-Labored Spontaneous Respiratory Depth Normal Respiratory Pattern Regular Blood Pressure Blood Pressure [Right Arm] 113/48 L Blood Pressure Mean Blood Pressure Mean [Right Arm] 69 Blood Pressure Position Blood Pressure Position [Right Arm] Lying Pulse Oximetry 93 95 94 Oxygen Delivery Method Room Air Room Air Room Air Sepsis Recent Fever Within 48 Hours Sepsis New/Unexplained Change in Mental Status Sepsis Action Taken by Nursing 10/28/23 01:20 10/28/23 01:30 10/28/23 01:40 Temperature Temperature Source Pulse Rate 103 H 103 H 103 H Pulse Rate [Right Finger] Pulse Rate from SpO2 Sensor 103 H 103 H 104 H Pulse Rhythm Pulse Rhythm [Right Finger] Pulse Strength [Right Finger] Respiratory Rate 25 H 24 26 H Respiratory Effort / Characteristics Respiratory Depth Respiratory Pattern Blood Pressure 112/62 Blood Pressure [Right Arm] Blood Pressure Mean 78 Blood Pressure Mean [Right Arm] Blood Pressure Position Blood Pressure Position [Right Arm] Pulse Oximetry 95 92 97 Oxygen Delivery Method Room Air Room Air Room Air Sepsis Recent Fever Within 48 Hours Sepsis New/Unexplained Change in Mental Status Sepsis Action Taken by Nursing 10/28/23 01:50 10/28/23 02:00 10/28/23 02:10 Temperature Temperature Source Pulse Rate 104 H 102 H 101 H Pulse Rate [Right Finger] Pulse Rate from SpO2 Sensor 104 H 102 H 101 H Pulse Rhythm Pulse Rhythm [Right Finger] Pulse Strength [Right Finger] Respiratory Rate 25 H 22 21 Respiratory Effort / Characteristics Respiratory Depth Respiratory Pattern Blood Pressure 117/54 L Blood Pressure [Right Arm] Blood Pressure Mean 75 Blood Pressure Mean [Right Arm] Blood Pressure Position Blood Pressure Position [Right Arm] Pulse Oximetry 91 95 95 Oxygen Delivery Method Room Air Room Air Room Air Sepsis Recent Fever Within 48 Hours Sepsis New/Unexplained Change in Mental Status Sepsis Action Taken by Nursing 10/28/23 02:20 10/28/23 02:30 10/28/23 03:00 Temperature Temperature Source Pulse Rate 101 H 98 H 101 H Pulse Rate [Right Finger] Pulse Rate from SpO2 Sensor 101 H 99 H 101 H Pulse Rhythm Pulse Rhythm [Right Finger] Pulse Strength [Right Finger] Respiratory Rate 22 19 20 Respiratory Effort / Characteristics Respiratory Depth Respiratory Pattern Blood Pressure 113/48 L 108/49 L Blood Pressure [Right Arm] Blood Pressure Mean 69 68 Blood Pressure Mean [Right Arm] Blood Pressure Position Blood Pressure Position [Right Arm] Pulse Oximetry 88 L 95 96 Oxygen Delivery Method Room Air Sepsis Recent Fever Within 48 Hours Sepsis New/Unexplained Change in Mental Status Sepsis Action Taken by Nursing 10/28/23 03:30 10/28/23 04:00 Temperature Temperature Source Pulse Rate 96 H 97 H Pulse Rate [Right Finger] Pulse Rate from SpO2 Sensor 98 H 97 H Pulse Rhythm Pulse Rhythm [Right Finger] Pulse Strength [Right Finger] Respiratory Rate 22 22 Respiratory Effort / Characteristics Respiratory Depth Respiratory Pattern Blood Pressure 98/71 L 104/56 L Blood Pressure [Right Arm] Blood Pressure Mean 80 72 Blood Pressure Mean [Right Arm] Blood Pressure Position Blood Pressure Position [Right Arm] Pulse Oximetry 94 96 Oxygen Delivery Method Sepsis Recent Fever Within 48 Hours Sepsis New/Unexplained Change in Mental Status Sepsis Action Taken by Nursing Laboratory Data 10/29/23 04:10 10/29/23 18:38 Lab Results 10/28/23 10/28/23 10/28/23 Range/Units 01:00 04:04 04:05 WBC 50.28 H* (4.8-10.8) K/ul RBC 2.87 L (4.70-6.10) M/uL Hgb 9.2 L (14.0-18.0) g/dl Hct 27.8 L (42.0-52.0) % MCV 96.9 (80.0-100.0) fL MCH 32.1 (25.0-34.0) pg MCHC 33.1 (32.0-36.0) g/dL RDW Std Deviation 61.2 H (36.4-46.3) fL RDW Coeff of Howie 17.2 H (11.5-14.5) % Plt Count 144 (130-400) K/uL MPV 11.8 (9.4-12.4) fL Immature Gran % (Auto) 4.1 % Neut % (Auto) 85.2 % Lymph % (Auto) 4.5 % [place] % (Auto) 6.0 % Eos % (Auto) 0.1 % Baso % (Auto) 0.1 % Neut # (Auto) 42.87 H (1.40-6.50) K/uL Lymph # (Auto) 2.24 (1.20-3.40) K/uL [place] # (Auto) 3.01 H (0.11-0.59) K/uL Eos # (Auto) 0.03 (0.00-0.50) K/uL Baso # (Auto) 0.06 (0.00-0.20) K/uL Immature Gran # (Auto) 2.07 H (0.01-0.20) K/uL Toxic Granulation 1+ Toxic Vacuolation 1+ Polychromasia 1+ Echinocytes 1+ PT 18.2 H (9.0-12.0) Seconds INR 1.7 H (0.9-1.1) APTT 37.6 H (21.0-31.0) Seconds PTT Ratio 1.3 Sodium 125 L (136-145) mmol/L Potassium 4.4 (3.5-5.1) mmol/L Chloride 91 L (98-107) mmol/L Carbon Dioxide 19 L (21-32) mmol/L Anion Gap 15 H (3-11) BUN 33 H (6-23) mg/dl Creatinine 2.67 H (0.6-1.4) mg/dl Est Cr Clr Drug Dosing 35.7 ml/min Est GFR ( Amer) 27.6 ml/min Est GFR (Non-Af Amer) 23.8 ml/min BUN/Creatinine Ratio 12.4 (10-20) Glucose 128 H (70-99(Fasting)) mg/dl Osmolality 280 (280-300) mOsm/kg Lactate 6.8 H* (0.4-2.0) mmol/L Calcium 8.7 (8.6-10.3) mg/dl Total Bilirubin 4.6 H (0.2-1.0) mg/dl AST 39 (13-39) U/L ALT 16 (7-52) U/L Alkaline Phosphatase 58 (34-104) U/L Troponin I High Sens 75.1 H* 59.1 H* D (0-20) pg/ml Total Protein 6.8 (6.0-8.3) gm/dl Albumin 3.0 L (3.4-5.0) gm/dl Globulin 3.8 (2.5-4.0) gm/dl Albumin/Globulin Ratio 0.8 L (0.9-2) Lipase 14 (11-82) U/L Procalcitonin 119.93 H (0-0.5) ng/ml Adenovirus (PCR) Not Detected (NotDetected) B. pertussis DNA (PCR) Not Detected (NotDetected) B.parapertussis DNA PCR Not Detected (NotDetected) C. pneumoniae DNA (PCR) Not Detected (NotDetected) Coronavirus OC43 (PCR) Not Detected (NotDetected) Coronavirus HKU1 (PCR) Not Detected (NotDetected) Coronavirus 229E (PCR) Not Detected (NotDetected) SARS-CoV-2 (PCR) Not Detected (NotDetected) Coronavirus NL63 (PCR) Not Detected (NotDetected) Human Metapneumovir PCR Not Detected (NotDetected) Influenza Type A (PCR) Not Detected (NotDetected) Influenza Type B (PCR) Not Detected (NotDetected) M. pneumoniae (PCR) Not Detected (NotDetected) Parainfluenza 1 (PCR) Not Detected (NotDetected) Parainfluenza 2 (PCR) Not Detected (NotDetected) Parainfluenza 3 (PCR) Not Detected (NotDetected) Parainfluenza 4 (PCR) Not Detected (NotDetected) RSV (PCR) Not Detected (NotDetected) Entero/Rhino (PCR) Not Detected (NotDetected) Bld Cult ID Panel PCR (NotDetected) 10/28/23 Range/Units 04:14 WBC (4.8-10.8) K/ul RBC (4.70-6.10) M/uL Hgb (14.0-18.0) g/dl Hct (42.0-52.0) % MCV (80.0-100.0) fL MCH (25.0-34.0) pg MCHC (32.0-36.0) g/dL RDW Std Deviation (36.4-46.3) fL RDW Coeff of Howie (11.5-14.5) % Plt Count (130-400) K/uL MPV (9.4-12.4) fL Immature Gran % (Auto) % Neut % (Auto) % Lymph % (Auto) % [place] % (Auto) % Eos % (Auto) % Baso % (Auto) % Neut # (Auto) (1.40-6.50) K/uL Lymph # (Auto) (1.20-3.40) K/uL [place] # (Auto) (0.11-0.59) K/uL Eos # (Auto) (0.00-0.50) K/uL Baso # (Auto) (0.00-0.20) K/uL Immature Gran # (Auto) (0.01-0.20) K/uL Toxic Granulation Toxic Vacuolation Polychromasia Echinocytes PT (9.0-12.0) Seconds INR (0.9-1.1) APTT (21.0-31.0) Seconds PTT Ratio Sodium (136-145) mmol/L Potassium (3.5-5.1) mmol/L Chloride (98-107) mmol/L Carbon Dioxide (21-32) mmol/L Anion Gap (3-11) BUN (6-23) mg/dl Creatinine (0.6-1.4) mg/dl Est Cr Clr Drug Dosing ml/min Est GFR ( Amer) ml/min Est GFR (Non-Af Amer) ml/min BUN/Creatinine Ratio (10-20) Glucose (70-99(Fasting)) mg/dl Osmolality (280-300) mOsm/kg Lactate (0.4-2.0) mmol/L Calcium (8.6-10.3) mg/dl Total Bilirubin (0.2-1.0) mg/dl AST (13-39) U/L ALT (7-52) U/L Alkaline Phosphatase (34-104) U/L Troponin I High Sens (0-20) pg/ml Total Protein (6.0-8.3) gm/dl Albumin (3.4-5.0) gm/dl Globulin (2.5-4.0) gm/dl Albumin/Globulin Ratio (0.9-2) Lipase (11-82) U/L Procalcitonin (0-0.5) ng/ml Adenovirus (PCR) (NotDetected) B. pertussis DNA (PCR) (NotDetected) B.parapertussis DNA PCR (NotDetected) C. pneumoniae DNA (PCR) (NotDetected) Coronavirus OC43 (PCR) (NotDetected) Coronavirus HKU1 (PCR) (NotDetected) Coronavirus 229E (PCR) (NotDetected) SARS-CoV-2 (PCR) (NotDetected) Coronavirus NL63 (PCR) (NotDetected) Human Metapneumovir PCR (NotDetected) Influenza Type A (PCR) (NotDetected) Influenza Type B (PCR) (NotDetected) M. pneumoniae (PCR) (NotDetected) Parainfluenza 1 (PCR) (NotDetected) Parainfluenza 2 (PCR) (NotDetected) Parainfluenza 3 (PCR) (NotDetected) Parainfluenza 4 (PCR) (NotDetected) RSV (PCR) (NotDetected) Entero/Rhino (PCR) (NotDetected) Bld Cult ID Panel PCR PCR Panel Negative (NotDetected) Administered Medications Acetaminophen (Acetaminophen 325 Mg Tab) 650 mg PO Q4H PRN PRN Reason: Pain or Fever Stop: 11/27/23 05:20 Last Admin: 10/29/23 08:19 Dose: 650 mg Documented By: BRY Allopurinol (Allopurinol 300 Mg Tab) 300 mg PO DAILY KALLI Stop: 11/27/23 08:59 Last Admin: 10/29/23 08:58 Dose: 300 mg Documented By: Admin: 10/28/23 09:11 Dose: 300 mg Documented By: ANDREA Folic Acid (Folic Acid 1 Mg Tab) 1 mg PO QAM KALLI Stop: 11/27/23 08:59 Last Admin: 10/29/23 08:58 Dose: 1 mg Documented By: Admin: 10/28/23 09:11 Dose: 1 mg Documented By: ANDREA Linezolid (Zyvox) 600 mg in 300 mls @ 200 mls/hr IV Q12H KALLI Stop: 10/30/23 16:59 Last Infusion: 10/29/23 18:29 Dose: Infused Documented By: Infusion: 10/29/23 17:10 Dose: 200 mls/hr Documented By: Infusion: 10/29/23 16:47 Dose: 0 mls/hr Documented By: Admin: 10/29/23 16:36 Dose: 200 mls/hr Documented By: Infusion: 10/29/23 06:47 Dose: Infused Documented By: Admin: 10/29/23 05:16 Dose: 200 mls/hr Documented By: Infusion: 10/28/23 19:47 Dose: Infused Documented By: Admin: 10/28/23 18:10 Dose: 200 mls/hr Documented By: DEVIN Levothyroxine Sodium (Levothyroxine Sodium 137 Mcg Tablet) 137 mcg PO QPM KALLI Stop: 11/27/23 20:59 Last Admin: 10/29/23 19:48 Dose: 137 mcg Documented By: Admin: 10/28/23 20:53 Dose: 137 mcg Documented By: Magnesium Oxide (Magnesium Oxide 400 Mg Tab) 400 mg PO BID KALLI Stop: 11/27/23 08:59 Last Admin: 10/29/23 19:48 Dose: 400 mg Documented By: Admin: 10/29/23 08:58 Dose: 400 mg Documented By: Admin: 10/28/23 20:53 Dose: 400 mg Documented By: Admin: 10/28/23 09:12 Dose: 400 mg Documented By: ANDREA Metoprolol Succinate (Metoprolol Succ 25mg Ext Rel Tab) 12.5 mg PO DAILY KALLI Stop: 11/27/23 08:59 Last Admin: 10/29/23 08:57 Dose: 12.5 mg Documented By: Admin: 10/28/23 09:11 Dose: 12.5 mg Documented By: ANDREA Miscellaneous (Mesalamine 0.375 Gram Capsule - Order Awaiting Action) 1 each N/A QS KALLI Stop: 11/27/23 07:59 Last Admin: 10/29/23 11:47 Dose: Not Given Documented By: Admin: 10/29/23 08:17 Dose: Not Given Documented By: Admin: 10/29/23 00:01 Dose: Not Given Documented By: Admin: 10/28/23 15:14 Dose: Not Given Documented By: Admin: 10/28/23 15:13 Dose: Not Given Documented By: Pantoprazole Sodium (Pantoprazole 40 Mg Tab) 40 mg PO BID KALLI Stop: 11/27/23 08:59 Last Admin: 10/29/23 19:48 Dose: 40 mg Documented By: Admin: 10/29/23 08:57 Dose: 40 mg Documented By: Admin: 10/28/23 20:53 Dose: 40 mg Documented By: Admin: 10/28/23 09:12 Dose: 40 mg Documented By: ANDREA Rifaximin (Rifaximin 550 Mg Tablet) 550 mg PO BID KALLI Stop: 11/27/23 08:59 Last Admin: 10/29/23 19:48 Dose: 550 mg Documented By: Admin: 10/29/23 08:58 Dose: 550 mg Documented By: Admin: 10/28/23 20:53 Dose: 550 mg Documented By: Admin: 10/28/23 09:11 Dose: 550 mg Documented By: ANDREA Spironolactone (Spironolactone 100 Mg Tab) 100 mg PO QAM KALLI Stop: 11/27/23 08:59 Last Admin: 10/29/23 08:19 Dose: 100 mg Documented By: Admin: 10/28/23 09:16 Dose: Not Given Documented By: ANDREA Vitamin D (Cholecalciferol 1,000 Units 25 Mcg Tab) 3,000 units PO QAM [facility] Stop: 11/27/23 08:59 Last Admin: 10/29/23 08:54 Dose: 3,000 units Documented By: Admin: 10/28/23 09:12 Dose: 3,000 units Documented By: ANDREA Discontinued Medications Bumetanide (Bumetanide 1 Mg Tab) 2 mg PO BID17 [facility] Stop: 11/28/23 08:59 Last Admin: 10/29/23 16:19 Dose: 2 mg Documented By: Admin: 10/29/23 09:34 Dose: 2 mg Documented By: BRY Furosemide (Furosemide 40 Mg/4 Ml Vial) 40 mg IV ONE ONE Stop: 10/28/23 04:31 Last Admin: 10/28/23 04:43 Dose: 40 mg Documented By: MELISSA Cefepime HCl 1,000 mg/ Syringe 10 mls @ 5 mls/min IV Q12H [facility]; Protocol Stop: 10/30/23 16:59 Last Admin: 10/29/23 16:20 Dose: 5 mls/min Documented By: Admin: 10/29/23 05:16 Dose: 5 mls/min Documented By: Admin: 10/28/23 18:10 Dose: 5 mls/min Documented By: DEVIN Albumin Human (Albumin 25%) 25 gm in 100 mls @ 50 mls/hr IV ONE ONE Stop: 10/28/23 06:29 Last Infusion: 10/28/23 08:12 Dose: Infused Documented By: Admin: 10/28/23 06:26 Dose: 50 mls/hr Documented By: MELISSA Cefepime HCl 1,000 mg/ Syringe 10 mls @ 5 mls/min IV NOW STA; Protocol Stop: 10/28/23 04:27 Last Admin: 10/28/23 04:43 Dose: 5 mls/min Documented By: MELISSA Linezolid (Zyvox) 600 mg in 300 mls @ 200 mls/hr IV NOW STA Stop: 10/28/23 05:56 Last Infusion: 10/28/23 06:26 Dose: Infused Documented By: Admin: 10/28/23 04:43 Dose: 200 mls/hr Documented By: MELISSA Sodium Chloride (Hypertonic Saline 3%) 150 mls @ 450 mls/hr IV .Q20M ONE; Protocol Stop: 10/29/23 16:40 Last Infusion: 10/29/23 17:10 Dose: Infused Documented By: BRY Co-signed By: ZEN Admin: 10/29/23 16:49 Dose: 450 mls/hr Documented By: BRY Co-signed By: ZEN Cefepime HCl 1,000 mg/ Syringe 10 mls @ 5 mls/min IV ONE ONE Stop: 10/29/23 18:46 Last Admin: 10/29/23 19:48 Dose: 5 mls/min Documented By: PEDRO Lactulose (Lactulose Syrup 30 Gm/45 Ml Udp) 30 gm PO TID KALLI Stop: 11/27/23 08:59 Last Admin: 10/29/23 11:47 Dose: Not Given Documented By: Admin: 10/29/23 08:53 Dose: 30 gm Documented By: Admin: 10/28/23 20:53 Dose: 30 gm Documented By: Admin: 10/28/23 14:14 Dose: 30 gm Documented By: Admin: 10/28/23 09:12 Dose: 30 gm Documented By: KV Imaging Data Radiologist's Impression: Chest X-Ray 10/28/23 01:19 XR chest 1V portable HISTORY: Chest pain, nonspecific COMPARISON: Chest 10/01/2023. FINDINGS: No pneumothorax. There are low lung volumes. The heart remains enlarged. There is interstitial/vascular thickening consistent with congestive change. This has slightly progressed. Probable trace left pleural effusion. Left basilar linear densities favor subsegmental atelectasis. This remains unchanged. IMPRESSION: 1. Cardiomegaly and pulmonary vascular congestion which has slightly progressed. 2. Trace left pleural effusion and left basilar densities suggestive of subsegmental atelectasis. ACT 112: Negative or not required by law. Electronically signed by: Mario Campbell M.D. 10/28/2023 7:00 AM Discharge Plan Visit Data Chief Complaint: Chest Pain ED Provider: Hilda Burciaga Discharge Problem: Chest pain, Leukocytosis, Acute hyponatremia Patient Disposition: Admitted As Inpatient Discharge Instructions Interventions: ED Discharge Assessment Last Done: 10/28/23 05:20 Discharge Problem: Chest pain Qualifiers: Chest pain type: unspecified Qualified Code(s): R07.9 - Chest pain, unspecified
[2023-10-28] MEDS: METOPROLOL SUCC 25MG EXT REL TAB PO SCH (09:11)
[2023-10-28] MEDS: allopurinoL 300 MG TAB PO SCH (09:11)
[2023-10-28] MEDS: FOLIC ACID 1 MG TAB PO SCH (09:11)
[2023-10-28] MEDS: rifAXIMin 550 MG TABLET PO SCH ×2 (09:11→20:53)
[2023-10-28] MEDS: MAGNESIUM OXIDE 400 MG TAB PO SCH ×2 (09:12→20:53)
[2023-10-28] MEDS: CHOLECALCIFEROL 1,000 UNITS 25 MCG TAB PO SCH (09:12)
[2023-10-28] MEDS: PANTOprazole 40 MG TAB PO SCH ×2 (09:12→20:53)
[2023-10-28] MEDS: LACTULOSE SYRUP 30 GM/45 ML UDP PO SCH ×3 (09:12→20:53)
[2023-10-28] MEDS: SPIRONOLACTONE 100 MG TAB PO SCH (09:16)
--- NOTE | 2023-10-28 10:43 | Oncology Consultation ---
Date of Consultation October 28, 2023 Assessment & Plan (1) Leukocytosis: (2) CML (chronic myelocytic leukemia): Plan -Leukocytosis not likely related to CML as patient recently had bone marrow biopsy less than a week ago on 10/22/2023 which showed no evidence of CML. Recent quantitative BCR/ABL PCR also undetectable on 10/22/2023. Based on this, he remains in remission from CML. -Would recommend peripheral smear review, infectious workup including urinalysis with reflex to culture, blood cultures. If workup for infections unrevealing, would also recommend considering CT CAP to also evaluate for infection. Thank you for this consult. Oncology will follow peripherally while he is in the hospital. Please feel free to call if you have any further questions History of Present Illness Reason for Consultation: Increasing white cell counts, CML Attending Physician: Cyrus Sellers History of Present Illness Mr. Perez is a pleasant 68-year-old gentleman with history of CML initially diagnosed in 2010 for which he is currently in remission based on his most recent bone marrow biopsy performed 10/22/2023 which showed no evidence of CML. Also recently had BCR/ABL quantitative PCR performed on 10/22/2023 which also demonstrated continued remission. He has been off TKI therapy since February, due to side effects of treatment and has since remained in remission. He presented to the ER [facility] with complaints of worsening shortness of breath and chest pain. Labs obtained in the ER revealed leukocytosis with white cell count of 50.28 for which hematology was consulted. Chest x-ray obtained on admission revealed cardiomegaly and pulmonary vascular congestion as well as trace left pleural effusion with left basilar densities suggestive of atelectasis. Allergies Allergy/AdvReac Type Severity Reaction Status Date / Time bee venom protein (honey bee) Allergy Severe DYSPNEA;SWE Verified 10/28/23 10:17 LLING latex Allergy Intermediate Rash Verified 10/28/23 10:17 Penicillins Allergy Unknown HAPPENED Verified 10/28/23 10:17 A CHILD Home Medications Medication Instructions Recorded Confirmed Type epinephrine 0.3 mg/0.3 mL 0.3 mg (0.3 mL) IM Q10M PRN 08/06/21 10/28/23 Rx injection, auto-injector (EpiPen anaphylaxis #2 ea 2-Sb) menthol 0.44 %-zinc oxide 20.6 % 1 applic EXT DIRECTED 09/17/22 10/28/23 History topical ointment (Calmoseptine) magnesium oxide 400 mg (241.3 mg 400 mg PO BID #60 tabs 01/28/23 10/28/23 Rx magnesium) tablet cholecalciferol (vitamin D3) 25 3,000 unit PO QAM #0 caps 03/08/23 10/28/23 Rx mcg (1,000 unit) capsule folic acid 1 mg tablet 1 mg PO QAM #30 tabs 03/08/23 10/28/23 Rx lactulose 10 gram/15 mL (15 mL) 30 g (45 mL) PO TID #750 mL 03/31/23 10/28/23 Rx oral solution levothyroxine 137 mcg tablet 137 mcg PO QPM #90 tabs 03/31/23 10/28/23 Rx mesalamine 0.375 gram 1.5 g (4 x 0.375 gram) PO QDL #360 03/31/23 10/28/23 Rx capsule,extended release 24 hr caps rifaximin 550 mg tablet (Xifaxan) 550 mg PO BID #180 tabs 03/31/23 10/28/23 Rx spironolactone 100 mg tablet 100 mg PO QAM #90 tabs 07/22/23 10/28/23 Rx bumetanide 2 mg tablet 2 mg PO BID #180 tabs 08/07/23 10/28/23 Rx allopurinol 300 mg tablet 300 mg PO DAILY #90 tabs 09/15/23 10/28/23 Rx metoprolol succinate 25 mg 12.5 mg PO DAILY 09/15/23 10/28/23 History tablet,extended release 24 hr pantoprazole 40 mg tablet,delayed 40 mg PO BID #180 tabs 09/30/23 10/28/23 Rx release triamcinolone acetonide 0.1 % 1 applic topical DAILY PRN Skin 10/07/23 10/28/23 Rx topical ointment Irritation #80 grams Patient History Medical History (Updated 10/28/23 @ 17:07 by Juliette Lima MD) Stage 3b chronic kidney disease Volume overload Hyponatremia Ulcerative colitis Cirrhosis Anasarca CML (chronic myelocytic leukemia) no chemo at present Sacral decubitus ulcer PAD (peripheral artery disease) Murmur Mild aortic regurgitation Mild aortic stenosis History of malignant neoplasm of appendix History of supraventricular tachycardia Anemia Pulmonary embolism Aug 2022 > was treated with Eliquis and now finished Vitamin D deficiency Right heart failure GERD (gastroesophageal reflux disease) Pulmonary edema Bacteremia Chronic kidney disease, stage 3a follows with Dr. Giraldo Pressure ulcer of buttock Venous ulcers of both lower extremities Trifascicular block follows with Dr. Painter SVT (supraventricular tachycardia) 01/21/2012: Ablation of typical slow fast AVNRT [facility] Atrial flutter 10/02/2020: Ablation of typical right atrial isthmus dependent flutter. [facility] Lymphedema Hypertension Hypothyroidism Paroxysmal A-fib resolved with ablation Surgical History (Updated 10/03/23 @ 00:11 by Gregg Dayeny) History of esophagogastroduodenoscopy (EGD) History of colonoscopy (2014) History of tooth extraction History of appendectomy H/O lymph node excision (~2011) 36 total H/O right hemicolectomy (~2011) 36 lymph nodes removed as well S/P ablation of atrial fibrillation 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) H/O hernia repair (12/04/12) Status post ablation of atrial flutter (12/04/12) 2019 H/O laparoscopy History of removal of Port-a-Cath H/O left knee surgery Family History Grandmother (Paternal) Colorectal cancer Father Myocardial infarction Prostate cancer Denies family history of Ovarian cancer Dementia Breast cancer Social History Smoking Status: Never smoker Second Hand Exposure: No; Do You Dip or Chew Tobacco: No; Hx Alcohol Use: Yes Alcohol type: beer Hx Substance Use: No Preferred Language: Chinese Communication Ability: Effective Communication Ability Comment: Altered Visual Impairment: Limited Hearing Ability: Normal Lap Layer Required: No Beliefs That Will Affect Care: None marital status: Current Living Situation: Spouse Current Living Situation Comment: Lives with who has her own healthcare issues 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 How many Children do You have: 2 Other Information That Helps Us Care for You: No Feels Safe at Home: Yes Safety Concerns: Feels Safe At This Time Childhood Exposure to Second-Hand Smoke: No Diet: low salt and other Diet Comment: 2000 cc fluid restriction during the past year weight has: increased > 10 lbs Dental Care, Regularly: Yes Physical Activity Frequency: Daily Seatbelt Use: always Sunscreen Use: Yes Assistive Devices: Cane and Lift Chair Results & Data Vital Signs (Past 12 Hours) Vital Signs Temp Pulse Pulse Resp BP BP Pulse Ox 10/28/23 07:33 93 H 17 120/53 L 95 10/28/23 07:32 92 H 18 120/53 L 97 10/28/23 07:10 93 H 10/28/23 06:27 90 18 115/47 L 95 10/28/23 04:39 96 H 20 98/46 L 95 10/28/23 04:00 97 H 22 104/56 L 96 10/28/23 03:30 96 H 22 98/71 L 94 10/28/23 03:00 101 H 20 108/49 L 96 10/28/23 02:30 98 H 19 113/48 L 95 10/28/23 02:20 101 H 22 88 L 10/28/23 02:10 101 H 21 95 10/28/23 02:00 102 H 22 117/54 L 95 10/28/23 01:50 104 H 25 H 91 10/28/23 01:40 103 H 26 H 97 10/28/23 01:30 103 H 24 112/62 92 10/28/23 01:20 103 H 25 H 95 10/28/23 01:19 103 H 94 10/28/23 01:10 105 H 24 95 10/28/23 01:10 103 H 21 113/48 L 93 10/28/23 01:10 93 10/28/23 01:00 107 H 22 119/60 96 10/28/23 00:59 36.5 C 106 H 26 H 131/67 93 10/28/23 00:51 106 H 20 131/67 92 10/28/23 00:50 107 H O2 Del Method 10/28/23 07:33 Room Air 10/28/23 07:32 Room Air 10/28/23 07:10 10/28/23 06:27 Room Air 10/28/23 04:39 10/28/23 04:00 10/28/23 03:30 10/28/23 03:00 10/28/23 02:30 10/28/23 02:20 Room Air 10/28/23 02:10 Room Air 10/28/23 02:00 Room Air 10/28/23 01:50 Room Air 10/28/23 01:40 Room Air 10/28/23 01:30 Room Air 10/28/23 01:20 Room Air 10/28/23 01:19 Room Air 10/28/23 01:10 Room Air 10/28/23 01:10 Room Air 10/28/23 01:10 Room Air 10/28/23 01:00 Room Air 10/28/23 00:59 Room Air 10/28/23 00:51 Room Air 10/28/23 00:50
--- NOTE | 2023-10-28 13:37 | Nephrology Consultation ---
Date of Consultation October 28, 2023 Assessment & Plan (1) Acute kidney injury: (2) Anemia: (3) Bilateral edema of lower extremity: (4) Stage 3b chronic kidney disease: Plan 68 yo m with stage IIIb CKD b/l cr 1.6-1.8 mg/dl with history of repeated acute kidney injury high-dose of diuretics use for chronic lymphedema. Admitted with history of diarrhea for 3 days some concern for volume depletion, ANNA, hyponatremia, although his weight is almost 10 pounds from his dry weight and chest x-ray history and pulmonary congestion. Initial troponin was elevated however repeat serial troponin trending down. Ammonia level was 63. --Repeat serum sodium in the afternoon --continue on Bumex 2 mg twice a day --Recommend decreasing lactulose dose to once a day with ongoing diarrhea and adjust the dose based on bowel movement -- High risk for progressive worsening of renal function with multiple significant comorbidities, repeated history of ANNA, need for high-dose of diuretics and cirrhosis. Thank you for allowing me to participate in your patient's care. It was a pleasure to see Mustapha. History of Present Illness Reason for Consultation: ANNA, volume depletion Attending Physician: Cyrus Sellers History of Present Illness Mr. Mustapha Bashir is a 68-year-old male with PMH of stage 3B CKD, chronic l ymphedema, CML, Liver cirrhosis admitted with ANNA, volume depletion, CP and SOB. Nephrology consult was requested for management ANNA. EMR records were reviewed in detail in patient's visit. Mustapha presented to ER yesterday with sudden onset chest pain, shortness of breath and concerned that he has been getting dehydrated with severe diarrhea for 2 days. He has history of hepatic cirrhosis and repeated hospitalization for change in mental status with high level of ammonia. After last hospitalization in August when his ammonia level was 163 he has been taking lactulose regularly 3 times a day. With lactulose he has been noticing ongoing diarrhea which somewhat worsened over last 2 days. He also has been noticing increased thirst and body aches. his blood pressure has been relatively well. On admission his creatinine was 2.7, sodium 125, ammonia level was 63. Hemoglobin was 9.2. Initial troponin was elevated at 75 which was trending down to 59 on repeat labs. Chest x-ray showed pulmonary vascular congestion. EKG with no acute ST-T changes noted to have sinus tachycardia and premature atrial complexes. He reports feeling slightly better. Mustapha has stage III B CKD b/l cr lately around 1.6 to 1.7 mg/dl with history of diuretic resistant lymphedema causing repeated episodes of ANNA and electrolyte abnormality and started on dialysis in February 2023 mainly for improvement in vo lume status. He has been voiding normally. After dialysis for a few weeks was taken off of dialysis in mid April 2023 as creatinine was staying around 1.7 mg/dl and did not have much UF with dialysis. Overall his volume status was staying relatively stable we Bumex 2 mg twice a day and spironolactone 100 mg daily, reports excellent urine output. No significant proteinuria. Renal imaging showed bilateral cortical atrophy but otherwise unremarkable. No known family history of CKD or ESRD. Nonsmoker. History of multiple hospitalization over last 1 year because of repeated weight gain, lymphedema, anasarca as well as change in mental status with hyperammonemia with cirrhosis of liver. 2D echo showed normal EF, no significant LVH. Has h/o CML, Has been in remission, follows with Oncology, off of TKI since 2020 because of significant fluid retention and weight gain. Had Bone marrow biopsy a week ago. Has h/o appendiceal CA s/p R hemicolectomy, atrial fibrillation/flutter, hypothyroidism, During his hospitalization from 09/15/2023 to 09/23/2023 with AMS and hyperammonemia, he was also found to be profoundly anemic with hemoglobin 6.7 required 3 units of PRBC. EGD showed nonbleeding gastric ulcer, continued on Protonix. Was also found to have gallbladder stone, did not require surgery. Allergies Allergy/AdvReac Type Severity Reaction Status Date / Time bee venom protein (honey bee) Allergy Severe DYSPNEA;SWE Verified 10/28/23 10:17 LLING latex Allergy Intermediate Rash Verified 10/28/23 10:17 Penicillins Allergy Unknown HAPPENED Verified 10/28/23 10:17 A CHILD Home Medications Medication Instructions Recorded Confirmed Type epinephrine 0.3 mg/0.3 mL 0.3 mg (0.3 mL) IM Q10M PRN 08/06/21 10/28/23 Rx injection, auto-injector (EpiPen anaphylaxis #2 ea 2-Sb) menthol 0.44 %-zinc oxide 20.6 % 1 applic EXT DIRECTED 09/17/22 10/28/23 History topical ointment (Calmoseptine) magnesium oxide 400 mg (241.3 mg 400 mg PO BID #60 tabs 01/28/23 10/28/23 Rx magnesium) tablet cholecalciferol (vitamin D3) 25 3,000 unit PO QAM #0 caps 03/08/23 10/28/23 Rx mcg (1,000 unit) capsule folic acid 1 mg tablet 1 mg PO QAM #30 tabs 03/08/23 10/28/23 Rx lactulose 10 gram/15 mL (15 mL) 30 g (45 mL) PO TID #750 mL 03/31/23 10/28/23 Rx oral solution levothyroxine 137 mcg tablet 137 mcg PO QPM #90 tabs 03/31/23 10/28/23 Rx mesalamine 0.375 gram 1.5 g (4 x 0.375 gram) PO QDL #360 03/31/23 10/28/23 Rx capsule,extended release 24 hr caps rifaximin 550 mg tablet (Xifaxan) 550 mg PO BID #180 tabs 03/31/23 10/28/23 Rx spironolactone 100 mg tablet 100 mg PO QAM #90 tabs 07/22/23 10/28/23 Rx bumetanide 2 mg tablet 2 mg PO BID #180 tabs 08/07/23 10/28/23 Rx allopurinol 300 mg tablet 300 mg PO DAILY #90 tabs 09/15/23 10/28/23 Rx metoprolol succinate 25 mg 12.5 mg PO DAILY 09/15/23 10/28/23 History tablet,extended release 24 hr pantoprazole 40 mg tablet,delayed 40 mg PO BID #180 tabs 09/30/23 10/28/23 Rx release triamcinolone acetonide 0.1 % 1 applic topical DAILY PRN Skin 10/07/23 10/28/23 Rx topical ointment Irritation #80 grams Patient History Medical History (Updated 10/28/23 @ 06:23 by Gilberto Tee MD) Stage 3b chronic kidney disease Volume overload Hyponatremia Ulcerative colitis Cirrhosis Anasarca CML (chronic myelocytic leukemia) no chemo at present Sacral decubitus ulcer PAD (peripheral artery disease) Murmur Mild aortic regurgitation Mild aortic stenosis History of malignant neoplasm of appendix History of supraventricular tachycardia Anemia Pulmonary embolism Aug 2022 > was treated with Eliquis and now finished Vitamin D deficiency Right heart failure GERD (gastroesophageal reflux disease) Pulmonary edema Bacteremia Chronic kidney disease, stage 3a follows with Dr. Giraldo Pressure ulcer of buttock Venous ulcers of both lower extremities Trifascicular block follows with Dr. Madina BAXTER (supraventricular tachycardia) 01/21/2012: Ablation of typical slow fast AVNRT [facility] Atrial flutter 10/02/2020: Ablation of typical right atrial isthmus dependent flutter. [facility] Lymphedema Hypertension Hypothyroidism Paroxysmal A-fib resolved with ablation Surgical History (Updated 10/03/23 @ 00:11 by Gregg Walsh) History of esophagogastroduodenoscopy (EGD) History of colonoscopy (2014) History of tooth extraction History of appendectomy H/O lymph node excision (~2011) 36 total H/O right hemicolectomy (~2011) 36 lymph nodes removed as well S/P ablation of atrial fibrillation 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) H/O hernia repair (12/04/12) Status post ablation of atrial flutter (12/04/12) 2019 H/O laparoscopy History of removal of Port-a-Cath H/O left knee surgery Family History Grandmother (Paternal) Colorectal cancer Father Myocardial infarction Prostate cancer Denies family history of Ovarian cancer Dementia Breast cancer Social History Smoking Status: Never smoker Second Hand Exposure: No; Do You Dip or Chew Tobacco: No; Hx Alcohol Use: Yes Alcohol type: beer Hx Substance Use: No Preferred Language: Panamanian Communication Ability: Effective Communication Ability Comment: Altered Visual Impairment: Limited Hearing Ability: Normal Insect Control Aide Required: No Beliefs That Will Affect Care: None marital status: Current Living Situation: Spouse Current Living Situation Comment: Lives with who has her own healthcare issues 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 Physical Exam Constitutional: WD/WN, vitals as above no acute distress Eyes: + anicteric sclerae Neck: normal visual inspection Respiratory: no respiratory distress Auscultation: lungs clear to auscultation bilaterally Cardiovascular: Rate/Rhythm: regular rate and regular rhythm Heart Sounds: normal S1 and normal S2 Extremities: + edema Gastrointestinal (Abdomen): obese, non tender Musculoskeletal: BL LE lymphedema Skin: no rashes, warm and dry Neurologic: no focal motor deficits Psychiatric: Orientation: alert and oriented x 3 Affect: euthymic affect Results & Data Vital Signs (Past 12 Hours) Vital Signs Pulse Pulse Resp BP BP Pulse Ox O2 Del Method 10/28/23 11:36 93 H 16 105/53 L 96 Room Air 10/28/23 07:33 93 H 17 120/53 L 95 Room Air 10/28/23 07:32 92 H 18 120/53 L 97 Room Air 10/28/23 07:10 93 H 10/28/23 06:27 90 18 115/47 L 95 Room Air 10/28/23 04:39 96 H 20 98/46 L 95 10/28/23 04:00 97 H 22 104/56 L 96 10/28/23 03:30 96 H 22 98/71 L 94 10/28/23 03:00 101 H 20 108/49 L 96 10/28/23 02:30 98 H 19 113/48 L 95 10/28/23 02:20 101 H 22 88 L Room Air 10/28/23 02:10 101 H 21 95 Room Air 10/28/23 02:00 102 H 22 117/54 L 95 Room Air 10/28/23 01:50 104 H 25 H 91 Room Air 10/28/23 01:40 103 H 26 H 97 Room Air PG Care Time/CCT Total # of Minutes Spent Total Time Spent with Patient: Total time spent is greater than 50% in coordination of care (as documented) at patient's floor/unit and/or counseling patient: Coding Level of Care Code 59335 INT INP/OBS CARE 3/75MIN Diagnoses Acute kidney injury N17.9 Anemia D64.9 Anemia type: other cause Bilateral edema of lower extremity R60.0 Stage 3b chronic kidney disease N18.32 (2) Anemia Anemia type: other cause
--- NOTE | 2023-10-28 13:47 | Electrocardiogram Report ---
Test Reason : Blood Pressure : / mmHG Vent. Rate : 106 BPM Atrial Rate : 106 BPM P-R Int : 194 ms QRS Dur : 120 ms QT Int : 354 ms P-R-T Axes : 085 -60 077 degrees QTc Int : 470 ms Sinus tachycardia with Premature atrial complexes Left axis deviation Non-specific intra-ventricular conduction delay Abnormal ECG When compared with ECG of 01-OCT-2023 14:11, Premature atrial complexes are now Present Questionable change in initial forces of Anterior leads Confirmed by Israel Roman ([id number]) on 10/28/2023 1:47:27 PM Referred By: REFERRED SELF Confirmed By:Israel Roman
[2023-10-28] MEDS ORDERED: LINEZOLID 600 MG/300 ML D5W IV SCH (17:00)
[2023-10-28 17:46] LABS: A calco-baum cmplx NotReported Not Detected (NotDetected); Bact fragilis Not Reported Not Detected (NotDetected); Blood Culture Id Panel PCR Panel Negative (NotDetected); C auris Not Reported Not Detected (NotDetected); Calbicans Not Reported Not Detected (NotDetected); Candida glabrata Not Reported Not Detected (NotDetected); Candida krusei Not Reported Not Detected (NotDetected); Cneoformans/gatti Not Reported Not Detected (NotDetected); Cparapsilosis Not Reported Not Detected (NotDetected); E cloacae compx Not Reported Not Detected (NotDetected); Efaecalis Not Reported Not Detected (NotDetected); Efaecium Not Reported Not Detected (NotDetected); Enterobacterales Not Reported Not Detected (NotDetected); Escherichia coli Not Reported Not Detected (NotDetected); H influenzae Not Reported Not Detected (NotDetected); K aerogenes Not Reported Not Detected (NotDetected); Koxytoca Not Reported Not Detected (NotDetected); Kpneumoniae grp Not Reported Not Detected (NotDetected); Lmonocyt Not Reported Not Detected (NotDetected); N meningitidis Not Reported Not Detected (NotDetected); P aeruginosa Not Reported Not Detected (NotDetected); Proteus spp Not Reported Not Detected (NotDetected); Salmonella spp Not Reported Not Detected (NotDetected); Smarcescens Not Reported Not Detected (NotDetected); Staph lugdunensis Not Reported Not Detected (NotDetected); Staph spp. Not Reported Not Detected (NotDetected); Staphaureus Not Reported Not Detected (NotDetected); Staphepi Not Reported Not Detected (NotDetected); Stenmaltophilia Not Reported Not Detected (NotDetected); Strep agal(GrpB) Not Reported Not Detected (NotDetected); Strep pneum Not Reported Not Detected (NotDetected); Strep pyog (GrpA) Not Reported Not Detected (NotDetected); Strep spp Not Reported Not Detected (NotDetected)
[2023-10-28 17:58] LABS: BUN Creatinine Ratio 15.9 (10-20); Calcium 9.1 mg/dl (8.6-10.3); Creatinine Clr Calc Pharmacy 35.3 ml/min; Est GFR (African American) 27.2 ml/min; Est GFR (Non-African American) 23.5 ml/min; Potassium 4.7 mmol/L (3.5-5.1)
[2023-10-28] MEDS: LINEZOLID 600 MG/300 ML BAG IV SCH (18:10)
[2023-10-28] MEDS: CEFEPIME 1,000 MG in SYRINGE 0 ML IV SCH (18:10)
[2023-10-28] MEDS: LEVOTHYROXINE SODIUM 137 MCG TABLET PO SCH (20:53)
[2023-10-29 04:45] LABS: Hemoglobin 8.6 g/dl (14.0-18.0); Mean Corpuscular Hemoglobin 32.6 pg (25.0-34.0); Mean Corpuscular Hgb Conc 34.4 g/dL (32.0-36.0); Mean Corpuscular Volume 94.7 fL (80.0-100.0); Mean Platelet Volume 11.6 fL (9.4-12.4); Platelet Count 99 K/uL (130-400); RDW Coefficient of Variation 16.7 % (11.5-14.5); RDW Standard Deviation 57.8 fL (36.4-46.3); Red Blood Count 2.64 M/uL (4.70-6.10); White Blood Count 27.77 K/ul (4.8-10.8)
[2023-10-29 05:03] LABS: Albumin Globulin Ratio 0.9 (0.9-2); Albumin Level 3.1 gm/dl (3.4-5.0); BUN Creatinine Ratio 17.6 (10-20); Bilirubin,Total 4.9 mg/dl (0.2-1.0); Calcium 8.8 mg/dl (8.6-10.3); Creatinine Clr Calc Pharmacy 33.7 ml/min; Est GFR (African American) 26.3 ml/min; Est GFR (Non-African American) 22.7 ml/min; Globulin 3.5 gm/dl (2.5-4.0); Magnesium 1.7 mg/dl (1.7-2.4); Potassium 4.8 mmol/L (3.5-5.1); Total Protein 6.6 gm/dl (6.0-8.3)
[2023-10-29 05:11] LABS: Basophils # (auto) 0.09 K/uL (0.00-0.20); Basophils % (auto) 0.3 %; Echinocytes 2+; Eosinophils # (auto) 0.02 K/uL (0.00-0.50); Eosinophils % (auto) 0.1 %; Immature Granulocytes # (auto) 1.69 K/uL (0.01-0.20); Immature Granulocytes % (auto) 6.1 %; Lymphocytes # (auto) 1.02 K/uL (1.20-3.40); Lymphocytes % (auto) 3.7 %; Monocytes # (auto) 1.58 K/uL (0.11-0.59); Monocytes % (auto) 5.7 %; Neutrophils # (auto) 23.37 K/uL (1.40-6.50); Neutrophils % (auto) 84.1 %; Polychromasia 1+
[2023-10-29] MEDS: CEFEPIME 1,000 MG in SYRINGE 0 ML IV SCH ×2 (05:16→16:20)
[2023-10-29] MEDS: LINEZOLID 600 MG/300 ML BAG IV SCH ×2 (05:16→16:36)
[2023-10-29 05:26] LABS: INR 2.2 (0.9-1.1); Partial Thromboplastin Ratio 1.6; Partial Thromboplastin Time 44 Seconds (21-31); Prothrombin Time 23.3 Seconds (9.0-12.0)
[2023-10-29] MEDS: SPIRONOLACTONE 100 MG TAB PO SCH (08:19)
[2023-10-29] MEDS: LACTULOSE SYRUP 30 GM/45 ML UDP PO SCH ×2 (08:53→11:47)
[2023-10-29] MEDS: CHOLECALCIFEROL 1,000 UNITS 25 MCG TAB PO SCH (08:54)
[2023-10-29] MEDS: METOPROLOL SUCC 25MG EXT REL TAB PO SCH (08:57)
[2023-10-29] MEDS: PANTOprazole 40 MG TAB PO SCH ×2 (08:57→19:48)
[2023-10-29] MEDS: FOLIC ACID 1 MG TAB PO SCH (08:58)
[2023-10-29] MEDS: allopurinoL 300 MG TAB PO SCH (08:58)
[2023-10-29] MEDS: rifAXIMin 550 MG TABLET PO SCH ×2 (08:58→19:48)
[2023-10-29] MEDS: MAGNESIUM OXIDE 400 MG TAB PO SCH ×2 (08:58→19:48)
[2023-10-29] MEDS: BUMETANIDE 1 MG TAB PO SCH ×2 (09:34→16:19)
[2023-10-29 09:43] LABS: Appearance Urine Clear (Clear); Bilirubin Urine Negative (Negative); Blood Urine Negative (Negative); Color Urine Dark Yellow; Glucose Urine UA Negative (Negative); Ketones Urine Trace (Negative); Leukocyte Esterase Urine Negative (Negative); Nitrite Urine Negative (Negative); Protein Urine Negative (Negative); Specific Gravity Urine 1.017 (1.000-1.030); Urobilinogen Urine Negative (Negative)
--- NOTE | 2023-10-29 13:24 | Nephrology Progress Note ---
Date of Service October 29, 2023 Assessment & Plan (1) Acute kidney injury: (2) Anemia: (3) Bilateral edema of lower extremity: (4) Stage 3b chronic kidney disease: Plan 68 yo m with stage IIIb CKD b/l cr 1.6-1.8 mg/dl with history of repeated acute kidney injury high-dose of diuretics use for chronic lymphedema. Admitted with history of diarrhea for 3 days some concern for volume depletion, ANNA, hyponatremia, although his weight is almost 10 pounds from his dry weight and chest x-ray history and pulmonary congestion. Initial troponin was elevated however repeat serial troponin trending down. Ammonia level was 63. Progressive worsening of renal function, creatinine up to 2.8, sodium dropped to 124. --Repeat serum sodium in the afternoon, if sodium drops further, will consider 3% saline --Check iron study, may need Venofer or GALE --continue on Bumex 2 mg twice a day, accurate intake output chart --Recommend decreasing lactulose dose to once a day with ongoing diarrhea and adjust the dose based on bowel movement --High risk for progressive worsening of renal function with multiple significant comorbidities, repeated history of NANA, need for high-dose of diuretics and cirrhosis. Admission and Anticipated Discharge Date Admission Date: October 28, 2023 Imelda Luciano was seen and evaluated this morning. He was moved to his room at 2 am last night and did not have good night sleep and currently feeling tired and sleepy. Sodium dropped to 124, progressive worsening of renal function, creatinine 2.8. He is with slightly improved from admission weight however still above his dry weight. Hemoglobin 8.6. Review of Systems Review of Systems: Detailed review of system was done and pertinent positives and negatives are mentioned above. Physical Exam Constitutional: WD/WN, vitals as above + ill appearing and + lethargic; no acute distress Eyes: + anicteric sclerae Respiratory: no respiratory distress Auscultation: lungs clear to auscultation bilaterally Cardiovascular: Rate/Rhythm: regular rate and regular rhythm Heart Sounds: normal S1 and normal S2 Extremities: + edema (lymphedema) Skin: + lesion, + crusts and + dry skin Neurologic: no focal motor deficits Psychiatric: Orientation: alert and oriented x 3 Affect: euthymic affect Results & Data Vital Signs (Past 12 Hours) Vital Signs Temp Pulse Pulse Resp BP Pulse Ox O2 Del Method 10/29/23 12:00 87 L Room Air, Nasal Cannula 10/29/23 11:47 36.6 C 91 H 16 149/69 H 90 Nasal Cannula 10/29/23 07:58 36.4 C L 96 H 16 129/64 90 Room Air 10/29/23 06:50 94 H 10/29/23 05:01 99 H 10/29/23 04:42 Room Air 10/29/23 02:15 100 H 10/29/23 01:45 36.8 C 103 H 20 143/68 H 94 Room Air O2 Flow Rate 10/29/23 12:00 0 10/29/23 11:47 3 10/29/23 07:58 10/29/23 06:50 10/29/23 05:01 10/29/23 04:42 10/29/23 02:15 10/29/23 01:45 PG Care Time/CCT Total # of Minutes Spent Total Time Spent with Patient: Total time spent is greater than 50% in coordination of care (as documented) at patient's floor/unit and/or counseling patient: Coding Level of Care Code 83165 SUB INP/OBS CARE 2/35MIN Diagnoses Acute kidney injury N17.9 Anemia D64.9 Anemia type: other cause Bilateral edema of lower extremity R60.0 Stage 3b chronic kidney disease N18.32 (2) Anemia Anemia type: other cause
[2023-10-29 14:45] LABS: BUN Creatinine Ratio 18.8 (10-20); Creatinine Clr Calc Pharmacy 32.1 ml/min; Est GFR (African American) 24.8 ml/min; Est GFR (Non-African American) 21.4 ml/min; Potassium 4.6 mmol/L (3.5-5.1)
[2023-10-29 15:06] LABS: Ferritin 404.9 ng/ml (8-388)
[2023-10-29] MEDS ORDERED: STAT IV/IM STA (16:21)
[2023-10-29] MEDS ORDERED: SODIUM CHLORIDE 3 % 150 ML IV ONE (16:21)
[2023-10-29] MEDS ORDERED: CEFEPIME 2,000 MG in SYRINGE 0 ML IV SCH (17:00)
[2023-10-29] MEDS ORDERED: CEFEPIME 1,000 MG in SYRINGE 0 ML IV ONE (18:45)
[2023-10-29] MEDS: LEVOTHYROXINE SODIUM 137 MCG TABLET PO SCH (19:48)
--- NOTE | 2023-10-29 22:19 | Hospitalist Progress Note ---
Date of Service October 29, 2023 Assessment & Plan (1) Hepatic encephalopathy: (2) Right heart failure: (3) Hyponatremia: (4) Volume overload: (5) Stage 3b chronic kidney disease: (6) Ulcerative colitis: (7) Cirrhosis: (8) CML (chronic myelocytic leukemia): (9) Anasarca: Plan Gram negative sepsis, Bacteremia CML- ABove diagnosis likely driving force to elevated WBC WBC on 10/22/2023 was 11.7 with percentage neutrophils 66.5 WBC was 50.28 with percentage neutrophils 85.2 but is downtrending. Cultures are showing gram negative bacilli, awaiting further identification. May consider consult from infectious disease depending on the organism. Patient is status post bone marrow biopsy on 10/22/2023 which showed mild hypercellular marrow at 60% with trilineage hematopoiesis. No evidence of active chronic myeloid leukemia or myelodysplasia. There was a hint of rouleaux in the peripheral blood and some of the plasma cells have atypical morphology though they are not increased. Flow cytometry did not reveal any plasma cell clones though SPEP is recommended just to exclude a monoclonal protein Consult oncology, patient follows with Dr. Lima *Acute on chronic diastolic (congestive) heart failure Cirrhosis/anasarca/ulcerative colitis/history of hepatic encephalopathy/anasarca/pulmonary edema/coagulopathy- Patient is showing signs of fluid overload. Sodium 125, serum osmolality 280, urine osmolality pending. Will give albumin 25 g IV x 1 followed by furosemide 40 mg IV x 1 and follow response Total bilirubin of 4.6 consistent with his previous diagnosis of Gilbert's Add ammonia level to current labs Continue lactulose, folic acid, mesalamine, rifaximin, spironolactone Will need to add back in oral Bumex after assessing response to IV Lasix Follow serial CBC with differential, chemistry profile and magnesium level. Follow ammonia level if abnormal INR 1.7 on admission, follow serially, no signs of bleeding at this time Bilateral lower extremity cellulitis/chronic venous insufficiency- Given albumin and Lasix IV above as noted Placed on Zyvox 60 mg IV every 12 hours and cefepime 2 g IV every 12 hours empirically x 48 hours Both antibiotics to cover potential secondary pulmonary process as well Demand ischemia Elevated troponin- Initial troponin 75.1, with follow-up 59.1, likely supply/demand mismatch, follow serially Admission and Anticipated Discharge Date Admission Date: October 28, 2023 Subjective Patient reports no new symptoms. Review of Systems Review of Systems: All systems reviewed & are unremarkable except as noted in HPI & below Physical Exam Physical Exam: The patient is awake, alert and oriented 3, well developed and well nourished, normocephalic and atraumatic, lying in bed and in no acute distress. HEENT--PERRL, EOMI Neck--supple. No JVD. No bruits. Thyroid normal, trachea midline, no adenopathy. Heart--normal S1 and S2. No murmurs, rubs or gallops. Lungs--clear bilaterally, no respiratory distress, no accessory muscle use. Abdomen--normal bowel sounds and soft. Nontender. Nondistended, no hernias or masses, no organomegaly. Extremities--no cyanosis or clubbing. No edema. There are good distal pulses b/l. Dermatologic--normal skin turgor, normal color, no abnormal lymph nodes, no rash. Neurologic--cranial nerves II through XII grossly intact. Rheumatologic--normal range of motion. Results & Data Results & Data Vital Signs (Past 12 Hours) Vital Signs Temp Pulse Pulse Pulse Resp BP Pulse Ox 10/29/23 22:04 94 10/29/23 19:57 36.7 C 94 H 20 103/57 L 92 10/29/23 15:25 36.9 C 97 H 16 122/64 91 10/29/23 14:02 93 H 10/29/23 12:00 87 L 10/29/23 11:47 36.6 C 91 H 16 149/69 H 90 O2 Del Method O2 Flow Rate 10/29/23 22:04 Nasal Cannula 3 10/29/23 19:57 Nasal Cannula 2 10/29/23 15:25 Nasal Cannula 3 10/29/23 14:02 10/29/23 12:00 Room Air, Nasal Cannula 0 10/29/23 11:47 Nasal Cannula 3 PG Care Time/CCT Total # of Minutes Spent Total Time Spent with Patient: Total time spent is greater than 50% in coordination of care (as documented) at patient's floor/unit and/or counseling patient: Coding Level of Care Code 63946 SUB INP/OBS CARE 2/35MIN Diagnoses Hepatic encephalopathy K76.82 Right heart failure I50.810 Hyponatremia E87.1 Volume overload E87.70 Stage 3b chronic kidney disease N18.32 Ulcerative colitis K51.90 Cirrhosis K74.60 CML (chronic myelocytic leukemia) C92.10 Anasarca R60.1
[2023-10-29] MEDS ORDERED: SODIUM CHLORIDE 3 % 200 ML IV ONE (22:30)
[2023-10-30] MEDS: LINEZOLID 600 MG/300 ML BAG IV SCH (03:58)
[2023-10-30] MEDS ORDERED: CEFEPIME 2,000 MG in SYRINGE 0 ML IV SCH (04:30)
[2023-10-30 05:20] LABS: Hematocrit (blood only) 23.1 % (42.0-52.0); Hemoglobin 8.1 g/dl (14.0-18.0); Mean Corpuscular Hemoglobin 31.9 pg (25.0-34.0); Mean Corpuscular Hgb Conc 35.1 g/dL (32.0-36.0); Mean Corpuscular Volume 90.9 fL (80.0-100.0); Mean Platelet Volume 12.7 fL (9.4-12.4); Platelet Count 90 K/uL (130-400); RDW Coefficient of Variation 16.1 % (11.5-14.5); RDW Standard Deviation 53.3 fL (36.4-46.3); Red Blood Count 2.54 M/uL (4.70-6.10); White Blood Count 17.81 K/ul (4.8-10.8)
[2023-10-30 05:38] LABS: Albumin Globulin Ratio 0.9 (0.9-2); BUN Creatinine Ratio 21.6 (10-20); Bilirubin,Total 5.5 mg/dl (0.2-1.0); Calcium 8.8 mg/dl (8.6-10.3); Creatinine Clr Calc Pharmacy 31.7 ml/min; Est GFR (African American) 24.4 ml/min; Globulin 3.5 gm/dl (2.5-4.0); Magnesium 2.2 mg/dl (1.7-2.4); Potassium 4.6 mmol/L (3.5-5.1); Total Protein 6.5 gm/dl (6.0-8.3)
[2023-10-30 05:45] LABS: Basophils # (auto) 0.03 K/uL (0.00-0.20); Basophils % (auto) 0.2 %; Dohle Bodies 1+; Echinocytes 1+; Eosinophils # (auto) 0.05 K/uL (0.00-0.50); Eosinophils % (auto) 0.3 %; Immature Granulocytes # (auto) 0.12 K/uL (0.01-0.20); Immature Granulocytes % (auto) 0.7 %; Lymphocytes # (auto) 1.22 K/uL (1.20-3.40); Lymphocytes % (auto) 6.9 %; Monocytes % (auto) 10.1 %; Neutrophils # (auto) 14.59 K/uL (1.40-6.50); Neutrophils % (auto) 81.8 %
[2023-10-30 06:12] LABS: INR 2.4 (0.9-1.1); Partial Thromboplastin Ratio 1.5; Partial Thromboplastin Time 42 Seconds (21-31); Prothrombin Time 24.7 Seconds (9.0-12.0)
[2023-10-30] MEDS: MAGNESIUM OXIDE 400 MG TAB PO SCH ×2 (09:27→20:16)
[2023-10-30] MEDS: METOPROLOL SUCC 25MG EXT REL TAB PO SCH (09:27)
[2023-10-30] MEDS: CHOLECALCIFEROL 1,000 UNITS 25 MCG TAB PO SCH (09:27)
[2023-10-30] MEDS: allopurinoL 300 MG TAB PO SCH (09:27)
[2023-10-30] MEDS: PANTOprazole 40 MG TAB PO SCH ×2 (09:27→20:16)
[2023-10-30] MEDS: FOLIC ACID 1 MG TAB PO SCH (09:27)
[2023-10-30] MEDS: SPIRONOLACTONE 100 MG TAB PO SCH (09:27)
[2023-10-30] MEDS: rifAXIMin 550 MG TABLET PO SCH ×2 (09:27→20:16)
[2023-10-30] MEDS: LACTULOSE SYRUP 30 GM/45 ML UDP PO SCH (09:29)
[2023-10-30] MEDS: SODIUM CHLORIDE 0.9% 1,000 ML IV SCH ×2 (11:39→22:15)
[2023-10-30] MEDS: levoFLOXacin/D5W 750 MG/150 ML BAG IV SCH (11:39)
--- NOTE | 2023-10-30 13:17 | Nephrology Progress Note ---
Date of Service October 30, 2023 Assessment & Plan (1) Acute kidney injury: (2) Anemia: (3) Bilateral edema of lower extremity: (4) Stage 3b chronic kidney disease: Plan 68 yo m with stage IIIb CKD b/l cr 1.6-1.8 mg/dl with history of repeated acute kidney injury high-dose of diuretics use for chronic lymphedema. Admitted with history of diarrhea for 3 days some concern for volume depletion, ANNA, hyponatremia, although his weight is almost 10 pounds from his dry weight and chest x-ray history and pulmonary congestion. Initial troponin was elevated however repeat serial troponin trending down. Ammonia level was 63. Progressive worsening of renal function, creatinine up to 3.0, hyponatremia, sodium 126. --Repeat serum sodium in the afternoon, if sodium drops further, will give 3% saline --continue to hold Bumex now, accurate intake output chart --repeat Ammonia --High risk for progressive worsening of renal function with multiple significant comorbidities, repeated history of ANNA, need for high-dose of diuretics and cirrhosis. Admission and Anticipated Discharge Date Admission Date: October 28, 2023 Imelda Luciano was seen and evaluated this morning with at bedside. He has been doing poorly, seems lethargic although answers q. Sodium dropped to 124 and received 3% saline x 2 yesterday, now slightly improved to 126., progressive worsening of renal function, creatinine 3.0. BP low. UO low. Review of Systems Review of Systems: Detailed review of system was done and pertinent positives and negatives are mentioned above. Physical Exam Constitutional: WD/WN, vitals as above + ill appearing and + lethargic; no acute distress Eyes: + anicteric sclerae Neck: normal visual inspection Respiratory: no respiratory distress Auscultation: lungs clear to auscultation bilaterally Cardiovascular: Rate/Rhythm: regular rate and regular rhythm Heart Sounds: normal S1 and normal S2 Extremities: + edema (lymphedema) Skin: no rashes, warm and dry + lesion, + crusts and + dry skin Neurologic: no focal motor deficits Psychiatric: Orientation: alert and oriented x 3 Affect: euthymic affect Results & Data Vital Signs (Past 12 Hours) Vital Signs Temp Pulse Pulse Pulse Resp BP Pulse Ox 10/30/23 11:54 36.4 C L 131 H 19 98/48 L 96 10/30/23 09:37 128 H 20 108/50 L 96 10/30/23 07:42 36.4 C L 89 19 119/64 96 10/30/23 07:33 92 H 10/30/23 04:09 95 10/30/23 03:44 36.5 C 93 H 18 113/55 L 90 O2 Del Method O2 Flow Rate 10/30/23 11:54 Nasal Cannula 3 10/30/23 09:37 Nasal Cannula 10/30/23 07:42 Nasal Cannula 3 10/30/23 07:33 10/30/23 04:09 Nasal Cannula 3 10/30/23 03:44 Nasal Cannula PG Care Time/CCT Total # of Minutes Spent Total Time Spent with Patient: Total time spent is greater than 50% in coordination of care (as documented) at patient's floor/unit and/or counseling patient: Coding Level of Care Code 13873 SUB INP/OBS CARE 3/50MIN Diagnoses Acute kidney injury N17.9 Anemia D64.9 Anemia type: other cause Bilateral edema of lower extremity R60.0 Stage 3b chronic kidney disease N18.32 (2) Anemia Anemia type: other cause
[2023-10-30 13:35] LABS: Immunoglobulin A 381.3 mg/dl (70-400); Immunoglobulin M 133.5 mg/dl (45-281)
--- NOTE | 2023-10-30 14:29 | Electrocardiogram Report ---
Test Reason : Blood Pressure : / mmHG Vent. Rate : 130 BPM Atrial Rate : 159 BPM P-R Int : 000 ms QRS Dur : 132 ms QT Int : 368 ms P-R-T Axes : 000 -68 097 degrees QTc Int : 541 ms Possible Supraventricular tachycardia Left axis deviation Non-specific intra-ventricular conduction block Cannot rule out Anteroseptal infarct , age undetermined T wave abnormality, consider lateral ischemia Abnormal ECG When compared with ECG of 28-OCT-2023 00:52, Supraventricular tachycardia has replaced Sinus rhythm Confirmed by Israel Roman ([id number]) on 10/30/2023 2:28:52 PM Referred By: REFERRED SELF Confirmed By:Israel Roman
--- NOTE | 2023-10-30 14:51 | Hospitalist Progress Note ---
Date of Service October 30, 2023 Assessment & Plan (1) Pasteurella infection: Plan: Blood culture obtained October 28 is positive for Pasteurella. Family adamantly denies any dog or cat bites. No overt pneumonia. Antibiotic has been switched to Levaquin, day 1. Will repeat blood cultures again today, October 30. (2) Hepatic encephalopathy: Plan: Treated with lactulose which is the likely cause of the diarrhea. Ammonia level several days ago was 63. Will recheck again tomorrow, October 31. Supportive care (3) Right heart failure: Plan: Chronic cor pulmonale. He also has chronic diastolic CHF. No intervention necessary at this time (4) Hyponatremia: Plan: Chronic. Serum osmolarity on admission was 280 and rechecked at 290 today, October 30. No intervention necessary at this time. Serial labs (5) Volume overload: Plan: He is actually volume depleted. Lower extremity edema below the knees is due to chronic venous insufficiency. All diuretics have been discontinued. He is now on IV fluids. (6) Stage 3b chronic kidney disease: Plan: Acute on chronic kidney disease stage III. Monitor intake and output. All diuretics have been discontinued. Serial labs (7) Ulcerative colitis: Plan: Chronic. Chronic diarrhea can be attributed to lactulose therapy. Supportive care (8) Cirrhosis: Plan: Chronic. Possibly related to chronic cor pulmonale. Supportive care. (9) CML (chronic myelocytic leukemia): Plan: Supportive care. Serial lab (10) Anasarca: Plan: Chronic lower extremity edema below the knees is due to chronic venous insufficiency. Intravascular fluid volume is depleted. No indication for diuretics at this time. Plan To be determined. Family is considering DNR status Admission and Anticipated Discharge Date Admission Date: October 28, 2023 Subjective Lethargic. He appears volume depleted. Mucous membranes and tongue are very dry. His diarrhea is due to lactulose. Ammonia on October 28 was 63. Will recheck again tomorrow. He is now on IV fluids and diuretics have been discontinued. Serum osmolarity is increased from 280 on October 28 2-90 currently. He is also iron deficient and will need parenteral iron this admission. Blood cultures on October 28 positive for Pasteurella. This will be repeated. Antibiotics have been switched to Levaquin, day 1. Uncertain how Pasteurella got in the bloodstream. His denies any recent animal bites. No evidence of pneumonia on admission. He has chronic venous stasis edema in both lower extremities below the knees but unfortunately skinny ankles are not the goal here. Peripheral lower extremity edema is likely to worsen with IV fluids but this cannot be helped. Review of Systems 2 Review of Systems: The patient is unable to answer any questions regarding review of systems at this time Physical Exam 2 Physical Exam: General-very lethargic. Arousable but nonverbal with me. He appears very weak HEENT-head atraumatic and normocephalic.very dry mucous membranes and dry tongue. Pupils are equal and reactive Neck-no lymphadenopathy or thyromegaly, trachea midline Chest-clear to auscultation percussion. No rales, wheezing or rhonchi Cardiac-tachycardic regular rate. Normal S1 and S2 Abdomen-normal bowel sounds, no hepatosplenomegaly Extremities-bilateral lower extremity chronic venous stasis changes below the knees Neuro-very lethargic and weak. He moves all extremities randomly. No apparent focal deficits. Psych-cannot assess Results & Data Results & Data Vital Signs (Past 12 Hours) Vital Signs Temp Pulse Pulse Pulse Resp BP Pulse Ox 10/30/23 11:54 36.4 C L 131 H 19 98/48 L 96 10/30/23 09:37 128 H 20 108/50 L 96 10/30/23 07:42 36.4 C L 89 19 119/64 96 10/30/23 07:33 92 H 10/30/23 04:09 95 10/30/23 03:44 36.5 C 93 H 18 113/55 L 90 O2 Del Method O2 Flow Rate 10/30/23 11:54 Nasal Cannula 3 10/30/23 09:37 Nasal Cannula 10/30/23 07:42 Nasal Cannula 3 10/30/23 07:33 10/30/23 04:09 Nasal Cannula 3 10/30/23 03:44 Nasal Cannula Laboratory Results 10/30/23 04:18 10/30/23 12:37 PG Care Time/CCT Total # of Minutes Spent Total Time Spent with Patient: Total time spent is greater than 50% in coordination of care (as documented) at patient's floor/unit and/or counseling patient: Coding Level of Care Code 84750 SUB INP/OBS CARE 3/50MIN Diagnoses Pasteurella infection A28.0 Hepatic encephalopathy K76.82 Right heart failure I50.810 Hyponatremia E87.1 Volume overload E87.70 Stage 3b chronic kidney disease N18.32 Ulcerative colitis K51.90 Cirrhosis K74.60 CML (chronic myelocytic leukemia) C92.10 Anasarca R60.1
[2023-10-30] MEDS: MESALAMINE 1 EA PO SCH (15:11)
[2023-10-30] MEDS ORDERED: STAT IV/IM STA (15:36)
[2023-10-30] MEDS ORDERED: SODIUM CHLORIDE 3 % 150 ML IV ONE (15:36)
[2023-10-30] MEDS: SODIUM CHLORIDE 1 GM TABLET PO SCH (20:16)
[2023-10-30] MEDS: LEVOTHYROXINE SODIUM 137 MCG TABLET PO SCH (20:17)
[2023-10-31] MEDS: SODIUM CHLORIDE 0.9% 1,000 ML IV SCH ×2 (06:18→14:01)
[2023-10-31] MEDS: FOLIC ACID 1 MG TAB PO SCH (08:05)
[2023-10-31] MEDS: METOPROLOL SUCC 25MG EXT REL TAB PO SCH (08:05)
[2023-10-31] MEDS: rifAXIMin 550 MG TABLET PO SCH ×2 (08:05→20:20)
[2023-10-31] MEDS: SODIUM CHLORIDE 1 GM TABLET PO SCH ×2 (08:05→20:20)
[2023-10-31] MEDS: PANTOprazole 40 MG TAB PO SCH ×2 (08:06→20:21)
[2023-10-31] MEDS: allopurinoL 300 MG TAB PO SCH (08:06)
[2023-10-31] MEDS: CHOLECALCIFEROL 1,000 UNITS 25 MCG TAB PO SCH (08:06)
[2023-10-31] MEDS: MAGNESIUM OXIDE 400 MG TAB PO SCH ×2 (08:06→20:21)
[2023-10-31] MEDS: LACTULOSE SYRUP 30 GM/45 ML UDP PO SCH (08:06)
[2023-10-31 09:03] LABS: Basophils # (auto) 0.03 K/uL (0.00-0.20); Basophils % (auto) 0.2 %; Eosinophils # (auto) 0.05 K/uL (0.00-0.50); Eosinophils % (auto) 0.3 %; Hematocrit (blood only) 23.8 % (42.0-52.0); Hemoglobin 8.3 g/dl (14.0-18.0); Immature Granulocytes # (auto) 0.15 K/uL (0.01-0.20); Immature Granulocytes % (auto) 0.9 %; Lymphocytes # (auto) 1.07 K/uL (1.20-3.40); Lymphocytes % (auto) 6.2 %; Mean Corpuscular Hgb Conc 34.9 g/dL (32.0-36.0); Mean Corpuscular Volume 91.9 fL (80.0-100.0); Mean Platelet Volume 12.4 fL (9.4-12.4); Monocytes # (auto) 1.52 K/uL (0.11-0.59); Monocytes % (auto) 8.9 %; Neutrophils # (auto) 14.35 K/uL (1.40-6.50); Neutrophils % (auto) 83.5 %; Platelet Count 97 K/uL (130-400); RDW Coefficient of Variation 16.3 % (11.5-14.5); RDW Standard Deviation 55.6 fL (36.4-46.3); Red Blood Count 2.59 M/uL (4.70-6.10); White Blood Count 17.17 K/ul (4.8-10.8)
[2023-10-31 09:24] LABS: Calcium 8.7 mg/dl (8.6-10.3); Magnesium 2.4 mg/dl (1.7-2.4); Potassium 4.6 mmol/L (3.5-5.1)
[2023-10-31 09:30] LABS: BUN Creatinine Ratio 23.9 (10-20); Creatinine Clr Calc Pharmacy 28.1 ml/min; Est GFR (African American) 20.7 ml/min; Est GFR (Non-African American) 17.8 ml/min; Uric Acid 6.9 mg/dl (2.6-7.2)
[2023-10-31 09:35] LABS: INR 2.3 (0.9-1.1); Partial Thromboplastin Ratio 1.4; Partial Thromboplastin Time 40 Seconds (21-31); Prothrombin Time 23.9 Seconds (9.0-12.0)
--- NOTE | 2023-10-31 13:21 | Nephrology Progress Note ---
Date of Service October 31, 2023 Assessment & Plan (1) Acute kidney injury: (2) Anemia: (3) Bilateral edema of lower extremity: (4) Stage 3b chronic kidney disease: Plan 68 yo m with stage IIIb CKD b/l cr 1.6-1.8 mg/dl with history of repeated acute kidney injury high-dose of diuretics use for chronic lymphedema. Admitted with history of diarrhea for 3 days some concern for volume depletion, ANNA, hyponatremia, although his weight is almost 10 pounds from his dry weight and chest x-ray history and pulmonary congestion. Initial troponin was elevated however repeat serial troponin trending down. Ammonia level was 63. Blood culture with Pasteurella Multocida, on Levofloxacin. Progressive worsening of renal function, creatinine up to 3.4, hyponatremia, sodium 126. Volume status difficult to assess as clinically looks volume depleted and reports feeling thirsty but overall >3 L positive, on IV fluid, off of diuretics, requiring NC O2. EDW about 262 lbs and now about 270 lbs. Diarrhea improved. Hb low at 8.3 with iron deficiency. --decrease IV fluid to 75 ml/h and consider stopping if po intake adequate --Repeat serum sodium in the afternoon. --continue to hold Bumex now, accurate intake output chart --High risk for progressive worsening of renal function with multiple significant comorbidities, repeated history of ANNA, need for high-dose of diuretics and cirrhosis. Admission and Anticipated Discharge Date Admission Date: October 28, 2023 Imelda Luciano was seen and evaluated this morning with at bedside. He is more awake and alert. Sodium 126 this morning, progressive worsening of renal function, creatinine 3.4, BUN 81. BP fair. UO low 650 ml. Review of Systems Review of Systems: Detailed review of system was done and pertinent positives and negatives are mentioned above. Physical Exam Constitutional: WD/WN, vitals as above + ill appearing; no acute distress Eyes: + anicteric sclerae Neck: normal visual inspection Respiratory: no respiratory distress Auscultation: + diminished lung sounds Cardiovascular: Rate/Rhythm: regular rate and regular rhythm Heart Sounds: normal S1 and normal S2 Extremities: + edema (lymphedema) Skin: no rashes, warm and dry + lesion, + crusts and + dry skin Neurologic: no focal motor deficits Psychiatric: Orientation: alert and oriented x 3 Affect: euthymic affect Results & Data Vital Signs (Past 12 Hours) Vital Signs Temp Pulse Pulse Pulse Resp BP BP 10/31/23 11:38 36.6 C 98 H 20 128/64 10/31/23 07:59 36.6 C 91 H 20 107/62 10/31/23 07:44 88 10/31/23 02:27 36.4 C L 126 H 20 95/56 L Pulse Ox O2 Del Method O2 Flow Rate 10/31/23 11:38 97 Nasal Cannula 3 10/31/23 07:59 97 Nasal Cannula 3 10/31/23 07:44 10/31/23 02:27 96 Nasal Cannula 3 PG Care Time/CCT Total # of Minutes Spent Total Time Spent with Patient: Total time spent is greater than 50% in coordination of care (as documented) at patient's floor/unit and/or counseling patient: Coding Level of Care Code 22590 SUB INP/OBS CARE 3/50MIN Diagnoses Acute kidney injury N17.9 Anemia D64.9 Anemia type: other cause Bilateral edema of lower extremity R60.0 Stage 3b chronic kidney disease N18.32 (2) Anemia Anemia type: other cause
[2023-10-31] MEDS: MESALAMINE 1 EA PO SCH (14:02)
--- NOTE | 2023-10-31 14:58 | Hospitalist Progress Note ---
Date of Service October 31, 2023 Assessment & Plan (1) Pasteurella infection: Plan: Blood culture obtained October 28 is positive for Pasteurella. Family adamantly denies any dog or cat bites. No overt pneumonia. Antibiotic has been switched to Levaquin, day 2. Repeat blood cultures obtained October 30 are negative to date. (2) Hepatic encephalopathy: Plan: Treated with lactulose which is the likely cause of the diarrhea. Ammonia level several days ago was 63. Ammonia level today, October 31, is 45. Supportive care (3) Right heart failure: Plan: Chronic cor pulmonale. He also has chronic diastolic CHF. No intervention necessary at this time (4) Hyponatremia: Plan: Chronic. Serum osmolarity on admission was 280 and rechecked at 290 on October 30. No intervention necessary at this time. Serial labs (5) Volume overload: Plan: He is actually volume depleted. Lower extremity edema below the knees is due to chronic venous insufficiency. All diuretics have been discontinued. He is now on IV fluids. Improved (6) Stage 3b chronic kidney disease: Plan: Acute on chronic kidney disease stage III. Monitor intake and output. All diuretics have been discontinued. Serial labs (7) Ulcerative colitis: Plan: Chronic. Chronic diarrhea can be attributed to lactulose therapy. Supportive care (8) Cirrhosis: Plan: Chronic. Possibly related to chronic cor pulmonale. Supportive care. (9) CML (chronic myelocytic leukemia): Plan: Supportive care. Serial lab (10) Anasarca: Plan: Chronic lower extremity edema below the knees is due to chronic venous insufficiency. Intravascular fluid volume is depleted. No indication for diuretics at this time. Plan To be determined. Family is considering DNR status Admission and Anticipated Discharge Date Admission Date: October 28, 2023 Subjective Improved from yesterday, October 30. He is sitting up in a chair and able to converse. He still has some mild lethargy and is disoriented. The second set of blood cultures obtained yesterday, October 30, remain negative to date. He is now on Levaquin, day 2 for the Pasteurella bacteremia. He has family assures me that he was not bitten by a cat or dog. Creatinine has risen further to 3.3. Urine sodium and urine creatinine ordered and pending for calculation of fractional sodium excretion. He remains on IV fluids. INR stable at 2.3. Ammonia stable at 45. Review of Systems 2 Review of Systems: The patient is unable to reliably answer any questions regarding review of systems at this time Physical Exam 2 Physical Exam: General-awake with mild lethargy. This is a marked improvement from yesterday, October 30. He appears very weak HEENT-head atraumatic and normocephalic. Dry mucous membranes and dry tongue. Pupils are equal and reactive Neck-no lymphadenopathy or thyromegaly, trachea midline Chest-clear to auscultation percussion. No rales, wheezing or rhonchi Cardiac-regular rate and rhythm. Normal S1 and S2 Abdomen-normal bowel sounds, no hepatosplenomegaly Extremities-bilateral lower extremity chronic venous stasis changes below the knees Neuro-mildly lethargic. No apparent focal motor deficits. Generalized weakness. Psych-cannot assess due to disorientation Results & Data Results & Data Vital Signs (Past 12 Hours) Vital Signs Temp Pulse Pulse Resp BP Pulse Ox O2 Del Method 10/31/23 11:38 36.6 C 98 H 20 128/64 97 Nasal Cannula 10/31/23 07:59 36.6 C 91 H 20 107/62 97 Nasal Cannula 10/31/23 07:44 88 O2 Flow Rate 10/31/23 11:38 3 10/31/23 07:59 3 10/31/23 07:44 Laboratory Results 10/31/23 08:46 PG Care Time/CCT Total # of Minutes Spent Total Time Spent with Patient: Total time spent is greater than 50% in coordination of care (as documented) at patient's floor/unit and/or counseling patient: Coding Level of Care Code 50729 SUB INP/OBS CARE 3/50MIN Diagnoses Pasteurella infection A28.0 Hepatic encephalopathy K76.82 Right heart failure I50.810 Hyponatremia E87.1 Volume overload E87.70 Stage 3b chronic kidney disease N18.32 Ulcerative colitis K51.90 Cirrhosis K74.60 CML (chronic myelocytic leukemia) C92.10 Anasarca R60.1
[2023-10-31] MEDS ORDERED: SODIUM CHLORIDE 3 % 150 ML IV ONE (16:41)
[2023-10-31] MEDS ORDERED: STAT IV/IM STA (16:41)
[2023-10-31] MEDS ORDERED: MELATONIN 3 MG TAB PO PRN (20:00)
[2023-10-31] MEDS: LEVOTHYROXINE SODIUM 137 MCG TABLET PO SCH (20:20)
[2023-11-01] MEDS: SODIUM CHLORIDE 0.9% 1,000 ML IV SCH ×2 (02:48→15:27)
[2023-11-01 07:20] LABS: Basophils # (auto) 0.05 K/uL (0.00-0.20); Basophils % (auto) 0.3 %; Eosinophils # (auto) 0.12 K/uL (0.00-0.50); Eosinophils % (auto) 0.6 %; Hematocrit (blood only) 23.7 % (42.0-52.0); Hemoglobin 7.9 g/dl (14.0-18.0); Immature Granulocytes % (auto) 2.1 %; Lymphocytes # (auto) 1.48 K/uL (1.20-3.40); Lymphocytes % (auto) 7.7 %; Mean Corpuscular Hemoglobin 31.9 pg (25.0-34.0); Mean Corpuscular Hgb Conc 33.3 g/dL (32.0-36.0); Mean Corpuscular Volume 95.6 fL (80.0-100.0); Mean Platelet Volume 12.4 fL (9.4-12.4); Monocytes # (auto) 2.03 K/uL (0.11-0.59); Monocytes % (auto) 10.6 %; Neutrophils # (auto) 15.04 K/uL (1.40-6.50); Neutrophils % (auto) 78.7 %; Platelet Count 79 K/uL (130-400); RDW Coefficient of Variation 16.2 % (11.5-14.5); RDW Standard Deviation 56.7 fL (36.4-46.3); Red Blood Count 2.48 M/uL (4.70-6.10); White Blood Count 19.12 K/ul (4.8-10.8)
[2023-11-01 07:38] LABS: BUN Creatinine Ratio 23.2 (10-20); Calcium 8.4 mg/dl (8.6-10.3); Creatinine Clr Calc Pharmacy 25.1 ml/min; Est GFR (African American) 17.8 ml/min; Est GFR (Non-African American) 15.4 ml/min; Potassium 4.7 mmol/L (3.5-5.1)
[2023-11-01 08:04] LABS: Echinocytes 1+; Polychromasia 1+
--- NOTE | 2023-11-01 09:35 | Hospitalist Progress Note ---
Date of Service November 01, 2023 Assessment & Plan (1) Pasteurella infection: Plan: Blood culture obtained October 28 is positive for Pasteurella. Family adamantly denies any dog or cat bites. No overt pneumonia. Antibiotic has been switched to Levaquin, LD 11/13/23(14 d course) Repeat blood cultures obtained October 30 are negative to date. (2) Hepatic encephalopathy: Plan: Secondary to underlyiung cirrhosis Treated with lactulose which is the likely cause of the diarrhea. Ammonia improved Supportive care (3) Right heart failure: Plan: Chronic cor pulmonale. secondary to chronic diastolic CHF. volume management challenging with comorbid hyponatremia and ANNA on CKD3 (4) Stage 3b chronic kidney disease: Plan: Acute on chronic kidney disease stage III. Nephrology managing IVF and Hyponatremia progressing ANNA with liver disease wonder hepatorenal syndrome will give 4 doses of albumin 25 g at this time to see if it improves his renal function (5) Ulcerative colitis: Plan: Chronic. Chronic diarrhea can be attributed to lactulose therapy. Supportive care (6) CML (chronic myelocytic leukemia): Plan: Supportive care. overall impacts infectious etiology Plan Family is considering DNR status Admission and Anticipated Discharge Date Admission Date: October 28, 2023 Subjective patient is confused likely encephalopathy from multiple medical conditions including acute on chronic kidney failure history of cirrhosis and concurrent bacteremic infection with Pasteurella. History is not reliable, was contacted and updated. Physical Exam Physical Exam: Patient awake and arouses attempts to respond appropriately does respond to commands. Does talk tangentially and nonsensical at times. No acute active distress but does appear to have some peripheral edema and likely extravascular excess volume card exam is regular systolic murmur is heard and significant Results & Data Results & Data Vital Signs (Past 12 Hours) Vital Signs Temp Pulse Pulse Pulse Resp BP BP 11/01/23 07:37 98.1 F 88 18 105/48 L 11/01/23 07:13 86 11/01/23 03:36 97.5 F L 87 18 110/64 10/31/23 23:15 97.3 F L 82 16 108/55 L 10/31/23 21:59 80 Pulse Ox O2 Del Method O2 Flow Rate 11/01/23 07:37 96 Nasal Cannula 2 11/01/23 07:13 11/01/23 03:36 98 Nasal Cannula 3 12/08/23 23:15 98 Nasal Cannula 3 10/31/23 21:59 Laboratory Results reviewed CBC reviewed chemistry PG Care Time/CCT Total # of Minutes Spent Total Time Spent with Patient: Total time spent is greater than 50% in coordination of care (as documented) at patient's floor/unit and/or counseling patient: Coding Level of Care Code 65735 SUB INP/OBS CARE 2/35MIN Diagnoses Pasteurella infection A28.0 Hepatic encephalopathy K76.82 Right heart failure I50.810 Stage 3b chronic kidney disease N18.32 Ulcerative colitis K51.90 CML (chronic myelocytic leukemia) C92.10
[2023-11-01] MEDS: CHOLECALCIFEROL 1,000 UNITS 25 MCG TAB PO SCH (09:36)
[2023-11-01] MEDS: MAGNESIUM OXIDE 400 MG TAB PO SCH ×2 (09:36→20:22)
[2023-11-01] MEDS: FOLIC ACID 1 MG TAB PO SCH (09:37)
[2023-11-01] MEDS: rifAXIMin 550 MG TABLET PO SCH ×2 (09:39→20:23)
[2023-11-01] MEDS: SODIUM CHLORIDE 1 GM TABLET PO SCH ×2 (09:40→20:23)
[2023-11-01] MEDS: PANTOprazole 40 MG TAB PO SCH ×2 (09:40→20:23)
[2023-11-01] MEDS: LACTULOSE SYRUP 30 GM/45 ML UDP PO SCH (09:41)
[2023-11-01] MEDS: allopurinoL 300 MG TAB PO SCH (09:41)
[2023-11-01] MEDS: levoFLOXacin/D5W 750 MG/150 ML BAG IV SCH (09:52)
[2023-11-01 10:21] LABS: Albumin Level 2.9 gm/dl (3.4-5.0)
[2023-11-01] MEDS: METOPROLOL SUCC 25MG EXT REL TAB PO SCH (10:50)
--- NOTE | 2023-11-01 11:51 | Nephrology Progress Note ---
Date of Service November 01, 2023 Assessment & Plan (1) Acute kidney injury: Plan: Attributed to intravascular volume depletion and suspected ATN. Non-oliguric. Creatinine continues to rise. Remains in a positive fluid balance with IV NSS infusing at 75 ml/hr. Alonso not classic for hepatorenal but I would not exclude underlying HRS II physiology. Increased TBW but decreased EAV. Thankfully, no emergent indication for STRUCTURAL RIGGER but prognosis is guarded. Medications are appropriately dosed for kidney function. I have ordered a repeat metabolic profile now. Electrolytes will be closely monitored. Document strict I/O's. Pathology review of peripheral smear and bone marrow does not suggest acute transformation of leukemia. (2) Anemia: Plan: Stable. Noted iron deficiency but IV iron not given due to sepsis and bacteremia. No signs of acute blood loss. (3) Bilateral edema of lower extremity: Plan: Lymphedema exacerbated by IVF. (4) Stage 3b chronic kidney disease: Plan: CKD IIIb A1 with baseline creatinine ~1.6-1/8 mg/dL. (5) Pasteurella infection: Plan: Remains on Levaquin. Follow up cultures negative. (6) CML (chronic myelocytic leukemia): Plan: Bone marrow and peripheral smear reviewed. (7) Hyponatremia: Plan: Chronic, stableRepeat labs requested. Remains on oral NaCl (8) Cirrhosis: Plan: MELD >36. Prognosis is unfortunately very poor. Lactulose for hepatic encephalopathy. I do not appreciate ascites on exam. Admission and Anticipated Discharge Date Admission Date: October 28, 2023 Subjective No acute events overnight. No fevers or chills. Large liquid bowel movement this AM. Appetite remains reduced. Rodríguez was laying comfortably in bed this AM. He is slow to respond to questions. He is non-specific in answers but does not appear to be oriented to place or time. He told me that he "has been here for several days at least" but did not answer when asked where he was. He denies shortness of breath. He denies any pain. Appetite is decreased. IV saline infusing. Review of Systems Review of Systems: All systems reviewed & are unremarkable except as noted in HPI & below and Unobtainable due to reduced consciousness (limited response to questions) Physical Exam Constitutional: WD/WN, vitals as above + ill appearing; no acute distress Eyes: + anicteric sclerae Neck: normal visual inspection Respiratory: no respiratory distress Auscultation: + diminished lung sounds Cardiovascular: Rate/Rhythm: regular rate and regular rhythm Heart Sounds: normal S1 and normal S2 Extremities: + edema (lymphedema) Gastrointestinal (Abdomen): Inspection/Auscultation: + abdomen distended Percussion/Palpation: abdomen nontender Skin: no rashes, warm and dry + lesion, + crusts and + dry skin Neurologic: no focal motor deficits Psychiatric: Orientation: alert; + not oriented x 3 Affect: euthymic affect Results & Data Vital Signs (Past 12 Hours) Vital Signs Temp Pulse Pulse Pulse Resp BP BP 11/01/23 11:29 36.7 C 99 H 18 109/55 L 11/01/23 07:37 36.7 C 88 18 105/48 L 11/01/23 07:13 86 11/01/23 03:36 36.4 C L 87 18 110/64 Pulse Ox O2 Del Method O2 Flow Rate 11/01/23 11:29 98 Room Air 11/01/23 07:37 96 Nasal Cannula 2 11/01/23 07:13 11/01/23 03:36 98 Nasal Cannula 3 Laboratory Results Laboratory Results - last 24 hr 10/31/23 10/31/23 10/31/23 14:00 14:30 19:13 WBC RBC Hgb Hct MCV MCH MCHC RDW Std Deviation RDW Coeff of Howie Plt Count MPV Immature Gran % (Auto) Neut % (Auto) Lymph % (Auto) [place] % (Auto) Eos % (Auto) Baso % (Auto) Neut # (Auto) Lymph # (Auto) [place] # (Auto) Eos # (Auto) Baso # (Auto) Immature Gran # (Auto) Polychromasia Echinocytes Sodium 123 L 124 L Potassium Chloride Carbon Dioxide Anion Gap BUN Creatinine Est Cr Clr Drug Dosing Est GFR ( Amer) Est GFR (Non-Af Amer) BUN/Creatinine Ratio Glucose Calcium Albumin Urine Osmolality 313 L Ur Random Creatinine 113.6 Ur Random Sodium 22 Ur Random Uric Acid Pending 11/01/23 06:34 WBC 19.12 H RBC 2.48 L Hgb 7.9 L Hct 23.7 L MCV 95.6 MCH 31.9 MCHC 33.3 RDW Std Deviation 56.7 H RDW Coeff of [place]oi[place] 16.2 H Plt Count 79 L MPV 12.4 Immature Gran % (Auto) 2.1 Neut % (Auto) 78.7 Lymph % (Auto) 7.7 [place] % (Auto) 10.6 Eos % (Auto) 0.6 Baso % (Auto) 0.3 Neut # (Auto) 15.04 H Lymph # (Auto) 1.48 [place] # (Auto) 2.03 H Eos # (Auto) 0.12 Baso # (Auto) 0.05 Immature Gran # (Auto) 0.40 H Polychromasia 1+ Echinocytes 1+ Sodium 125 L Potassium 4.7 Chloride 94 L Carbon Dioxide 20 L Anion Gap 11 BUN 89 H Creatinine 3.83 H D Est Cr Clr Drug Dosing 25.1 Est GFR ( Amer) 17.8 Est GFR (Non-Af Amer) 15.4 BUN/Creatinine Ratio 23.2 H Glucose 105 H Calcium 8.4 L Albumin 2.9 L Urine Osmolality Ur Random Creatinine Ur Random Sodium Ur Random Uric Acid PG Care Time/CCT Total # of Minutes Spent Total Time Spent with Patient: Total time spent is greater than 50% in coordination of care (as documented) at patient's floor/unit and/or counseling patient: Coding Level of Care Code 12674 SUB INP/OBS CARE 3/50MIN Diagnoses Acute kidney injury N17.9 Anemia D64.9 Anemia type: other cause Bilateral edema of lower extremity R60.0 Stage 3b chronic kidney disease N18.32 Pasteurella infection A28.0 CML (chronic myelocytic leukemia) C92.10 Hyponatremia E87.1 Cirrhosis K74.60 (2) Anemia Anemia type: other cause
[2023-11-01 12:58] LABS: Albumin Level 2.8 gm/dl (3.4-5.0); BUN Creatinine Ratio 22.9 (10-20); Calcium 8.2 mg/dl (8.6-10.3); Creatinine Clr Calc Pharmacy 24.1 ml/min; Est GFR (Non-African American) 14.7 ml/min; Phosphorus 6.9 mg/dl (2.5-4.9); Potassium 4.6 mmol/L (3.5-5.1)
[2023-11-01] MEDS: MESALAMINE 1 EA PO SCH (13:22)
[2023-11-01] MEDS ORDERED: STAT IV/IM STA ×2 (14:08→23:54)
[2023-11-01] MEDS ORDERED: SODIUM CHLORIDE 3 % 150 ML IV ONE ×2 (14:08→23:54)
[2023-11-01] MEDS: ALBUMIN 25% 25 GM/100 ML VIAL IV SCH ×2 (16:49→22:50)
[2023-11-01] MEDS: LEVOTHYROXINE SODIUM 137 MCG TABLET PO SCH (20:23)
[2023-11-02] MEDS: SODIUM CHLORIDE 0.9% 1,000 ML IV SCH (05:11)
[2023-11-02 07:19] LABS: Basophils # (auto) 0.06 K/uL (0.00-0.20); Basophils % (auto) 0.4 %; Eosinophils # (auto) 0.11 K/uL (0.00-0.50); Eosinophils % (auto) 0.7 %; Hematocrit (blood only) 23.4 % (42.0-52.0); Hemoglobin 7.7 g/dl (14.0-18.0); Immature Granulocytes # (auto) 0.75 K/uL (0.01-0.20); Immature Granulocytes % (auto) 4.5 %; Lymphocytes # (auto) 1.05 K/uL (1.20-3.40); Lymphocytes % (auto) 6.3 %; Mean Corpuscular Hemoglobin 32.2 pg (25.0-34.0); Mean Corpuscular Hgb Conc 32.9 g/dL (32.0-36.0); Mean Corpuscular Volume 97.9 fL (80.0-100.0); Mean Platelet Volume 12.7 fL (9.4-12.4); Monocytes # (auto) 1.37 K/uL (0.11-0.59); Monocytes % (auto) 8.3 %; Neutrophils # (auto) 13.24 K/uL (1.40-6.50); Neutrophils % (auto) 79.8 %; Nucleated RBC # (auto) 0.02 K/uL (0.00-0.12); Nucleated RBC % (auto) 0.1 %; Platelet Count 79 K/uL (130-400); RDW Coefficient of Variation 16.4 % (11.5-14.5); RDW Standard Deviation 58.4 fL (36.4-46.3); Red Blood Count 2.39 M/uL (4.70-6.10); White Blood Count 16.58 K/ul (4.8-10.8)
[2023-11-02 07:43] LABS: Albumin Level 3.3 gm/dl (3.4-5.0); BUN Creatinine Ratio 22.6 (10-20); Bilirubin,Total 5.1 mg/dl (0.2-1.0); Calcium 8.4 mg/dl (8.6-10.3); Est GFR (African American) 16.1 ml/min; Est GFR (Non-African American) 13.9 ml/min; Globulin 3.4 gm/dl (2.5-4.0); Magnesium 2.6 mg/dl (1.7-2.4); Phosphorus 7.5 mg/dl (2.5-4.9); Potassium 4.5 mmol/L (3.5-5.1); Total Protein 6.7 gm/dl (6.0-8.3)
--- NOTE | 2023-11-02 08:00 | Hospitalist Progress Note ---
Date of Service November 02, 2023 Assessment & Plan (1) Pasteurella infection: Plan: Blood culture obtained October 28 is positive for Pasteurella. Family adamantly denies any dog or cat bites. No overt pneumonia. Antibiotic has been switched to Levaquin, LD 11/13/23(14 d course) Repeat blood cultures obtained October 30 are negative to date. (2) Hepatic encephalopathy: Plan: Secondary to underlyiung cirrhosis Treated with lactulose which is the likely cause of the diarrhea. Ammonia improved Supportive care (3) Right heart failure: Plan: Chronic cor pulmonale. secondary to chronic diastolic CHF. not with acute exacerbation that this time, comorbid hyponatremia and ANNA on CKD3 (4) Stage 3b chronic kidney disease: Plan: Acute on chronic kidney disease stage III. progressive and worsening, Nephrology managing IVF and Hyponatremia, hypertonic saline again on 11/02 progressing ANNA with liver disease wonder hepatorenal syndrome will give 8 doses of albumin 25 g and octreotide at this time to see if it improves his renal function pt with worsening anemia, has anemia of chronic disease, is also iron deficient, will give venofer 200mg daily for 3 days MELD score is 37 with 52.6% 3 month mortality (5) Ulcerative colitis: Plan: Chronic. Chronic diarrhea can be attributed to lactulose therapy. typically on mesalamine (6) CML (chronic myelocytic leukemia): Plan: Supportive care. overall impacts infectious etiology Plan prognosis is poor, communicated to family that if he continues to decline his chance of survival is low, Admission and Anticipated Discharge Date Admission Date: October 28, 2023 Subjective No acute events overnight. I met with Mr. Bashir, his , and Dr. Aquino for a family meeting this morning and discussed his condition and goals of care. Mr. Bashir was more awake this morning. He made comments but it was not clear that he was oriented. he did seem to have depth and breath reasoning to make relliabe life and decisions He has no focal complaints falls asleep easily Physical Exam Physical Exam: Patient awake and arouses attempts to respond more clear than 11/01 peripheral edema and extravascular excess volume, no definite JVD seem card exam is regular systolic murmur is heard and significant Results & Data Results & Data Vital Signs (Past 12 Hours) Vital Signs Temp Pulse Pulse Pulse Resp BP BP 11/02/23 07:40 11/02/23 07:31 97.7 F 78 18 115/55 L 11/02/23 07:11 76 11/02/23 04:04 97.3 F L 81 16 93/56 L 11/01/23 23:22 97.3 F L 79 18 92/35 L 11/01/23 22:00 82 11/01/23 20:30 Pulse Ox O2 Del Method O2 Flow Rate 11/02/23 07:40 Nasal Cannula 3 11/02/23 07:31 99 Nasal Cannula 2 11/02/23 07:11 11/02/23 04:04 100 Nasal Cannula 3 11/01/23 23:22 99 Nasal Cannula 3 11/01/23 22:00 11/01/23 20:30 Nasal Cannula 3 Laboratory Results reviewed CBC reviewed chemistry PG Care Time/CCT Total # of Minutes Spent Total Time Spent with Patient: Total time spent is greater than 50% in coordination of care (as documented) at patient's floor/unit and/or counseling patient: Coding Level of Care Code 13163 SUB INP/OBS CARE 3/50MIN Diagnoses Pasteurella infection A28.0 Hepatic encephalopathy K76.82 Right heart failure I50.810 Stage 3b chronic kidney disease N18.32 Ulcerative colitis K51.90 CML (chronic myelocytic leukemia) C92.10
[2023-11-02 08:16] LABS: RBC Morphology Unremarkable
[2023-11-02] MEDS: LACTULOSE SYRUP 30 GM/45 ML UDP PO SCH (08:44)
[2023-11-02] MEDS: METOPROLOL SUCC 25MG EXT REL TAB PO SCH (08:44)
[2023-11-02] MEDS: CHOLECALCIFEROL 1,000 UNITS 25 MCG TAB PO SCH (08:44)
[2023-11-02] MEDS: SODIUM CHLORIDE 1 GM TABLET PO SCH ×2 (08:45→22:23)
[2023-11-02] MEDS: allopurinoL 300 MG TAB PO SCH (08:45)
[2023-11-02] MEDS: MAGNESIUM OXIDE 400 MG TAB PO SCH ×2 (08:45→22:21)
[2023-11-02] MEDS: FOLIC ACID 1 MG TAB PO SCH (08:45)
[2023-11-02] MEDS: PANTOprazole 40 MG TAB PO SCH ×2 (08:45→22:23)
[2023-11-02] MEDS: rifAXIMin 550 MG TABLET PO SCH ×2 (08:45→22:22)
[2023-11-02] MEDS: ALBUMIN 25% 25 GM/100 ML VIAL IV SCH ×3 (08:50→23:50)
--- NOTE | 2023-11-02 10:54 | XCELERA ---
[id number]
[2023-11-02] MEDS: IRON SUCROSE 200 MG in 0.9 % SODIUM CHLORIDE 100 ML IV SCH (11:10)
[2023-11-02] MEDS: MESALAMINE 1 EA PO SCH (11:11)
[2023-11-02] MEDS ORDERED: STAT IV/IM STA ×2 (11:21→22:30)
[2023-11-02] MEDS ORDERED: SODIUM CHLORIDE 3 % 150 ML IV ONE ×2 (11:21→22:30)
--- NOTE | 2023-11-02 11:21 | Nephrology Progress Note ---
Date of Service November 02, 2023 Assessment & Plan (1) Acute kidney injury: Plan: Attributed to intravascular volume depletion and suspected ATN. Non-oliguric but UOP slowing down. Creatinine continues to rise. Overall, prognosis is very poor. Increased TBW but decreased EAV. Clinical presentation consistent with HRS. Repeat assessment of urine sodium has been ordered as a gauge of severity or response to recent therapy. There is no emergent indication for dialysis at this time. Unfortunately, prognosis for renal recovery is not good. I would not expect encephalopathy to improve with hemodialysis. I do worry about the patient's ability to tolerate hemodialysis and the potential risks versus benefits. The role of hemodialysis in the setting of underlying advanced liver disease with decompensated cirrhosis is not good. IV albumin will be continued with the addition of Octreotide. I would recommend holding metoprolol for hypotension. If hypotension persists, add midodrine. We have created a significant positive fluid balance with IV NSS and additional isotonic fluids will be held. Unfortunately, TTE and exam demonstrate increasing evidence of hypervolemia without improvement in kidney function. IV albumin is being provided. Continue IV albumin 25 g Q 6-8 hours today. Boluses of hypertonic saline will also be provided. Medications are appropriately dosed for kidney function. Document strict I/O's. (2) Anemia: Plan: Stable. Venofer 200 mg IV x 3 days started this AM by Dr. Reynoso. I will add Epogen 97968 units x 1 dose now. (3) Hyponatremia: Plan: Chronic, stable. Hypervolemic. Encephalopathy and orhter potential symptom are likely driven more by the underlying cause of the dysnatremia (i.e. liver and kidney failure). GI solute losses complicated by poor oral intake and elevated ADH production associated with prerenal physiology. Hyponatremia is a marker of overall severity of illness and a prognostic marker in the setting of liver and kidney disease. Unfortunately, correcting serum sodium is not likely to improve outcome or encephalopathy. Urine studies are being updated today. Isotonic fluids converted to more intermittent boluses of hypertonic saline as well as IV albumin. (4) Stage 3b chronic kidney disease: Plan: CKD IIIb A1 with baseline creatinine ~1.6-1/8 mg/dL. (5) Pasteurella infection: Plan: Remains on Levaquin. Follow up cultures negative. (6) CML (chronic myelocytic leukemia): Plan: Bone marrow and peripheral smear reviewed. (7) Bilateral edema of lower extremity: Plan: Lymphedema exacerbated by IVF. No signs of cellulitis on exam. (8) Cirrhosis: Plan: MELD >36. Prognosis is unfortunately very poor. Mr. Bashir has followed by Dr. Luna in the hepatology clinic in the past. Unfortunately, he was told that he is not a transplant candidate due to history of malignancy. Lactulose for hepatic encephalopathy. I do not appreciate ascites on exam. Admission and Anticipated Discharge Date Admission Date: October 28, 2023 Subjective No acute events overnight. I met with Mr. Bashir, his , and Dr. Reynoso for a family meeting this morning and discussed his condition and goals of care. Mr. Bashir was more awake this morning. He made comments but it was not clear that he was oriented. No fevers. I circled back to evaluate the patient after our meeting. It is clear that he is not having abdominal pain. PO intake remains poor. There is increased evidence of fluid retention but this is not particularly bothersome to the patient. He does not endorse dyspnea. Urine output notably reduced. Review of Systems Review of Systems: All systems reviewed & are unremarkable except as noted in HPI & below Physical Exam Constitutional: well developed and + ill appearing; no acute distress Eyes: + anicteric sclerae Neck: normal visual inspection Respiratory: no respiratory distress Auscultation: lungs clear to auscultation bilaterally Cardiovascular: Rate/Rhythm: regular rate and regular rhythm Heart Sounds: normal S1 and normal S2 Extremities: + edema (lymphedema) Gastrointestinal (Abdomen): Inspection/Auscultation: + abdomen distended Percussion/Palpation: abdomen nontender Skin: no rashes, warm and dry + lesion, + crusts and + dry skin Neurologic: no focal motor deficits Psychiatric: Orientation: alert; + not oriented x 3 Affect: euthymic affect Results & Data Vital Signs (Past 12 Hours) Vital Signs Temp Pulse Pulse Pulse Resp BP BP 11/02/23 07:40 11/02/23 07:31 36.5 C 78 18 115/55 L 11/02/23 07:11 76 11/02/23 04:04 36.3 C L 81 16 93/56 L 11/01/23 23:22 36.3 C L 79 18 92/35 L Pulse Ox O2 Del Method O2 Flow Rate 11/02/23 07:40 Nasal Cannula 3 11/02/23 07:31 99 Nasal Cannula 2 11/02/23 07:11 11/02/23 04:04 100 Nasal Cannula 3 11/01/23 23:22 99 Nasal Cannula 3 Laboratory Results Laboratory Results - last 24 hr 11/01/23 11/01/23 11/02/23 12:26 20:03 06:05 WBC 16.58 H RBC 2.39 L Hgb 7.7 L Hct 23.4 L MCV 97.9 MCH 32.2 MCHC 32.9 RDW Std Deviation 58.4 H RDW Coeff of Howie 16.4 H Plt Count 79 L MPV 12.7 H Immature Gran % (Auto) 4.5 Neut % (Auto) 79.8 Lymph % (Auto) 6.3 [place] % (Auto) 8.3 Eos % (Auto) 0.7 Baso % (Auto) 0.4 Neut # (Auto) 13.24 H Lymph # (Auto) 1.05 L [place] # (Auto) 1.37 H Eos # (Auto) 0.11 Baso # (Auto) 0.06 Immature Gran # (Auto) 0.75 H Absolute Nucleated RBC 0.02 Nucleated RBC % (auto) 0.1 RBC Morphology Unremarkable Sodium 125 L 124 L 126 L Potassium 4.6 4.5 Chloride 95 L 96 L Carbon Dioxide 18 L 18 L Anion Gap 12 H 12 H BUN 91 H 94 H Creatinine 3.98 H 4.16 H Est Cr Clr Drug Dosing 24.1 23.0 Est GFR ( Amer) 17.0 16.1 Est GFR (Non-Af Amer) 14.7 13.9 BUN/Creatinine Ratio 22.9 H 22.6 H Glucose 165 H 121 H Calcium 8.2 L 8.4 L Phosphorus 6.9 H 7.5 H Magnesium 2.6 H Total Bilirubin 5.1 H AST 54 H ALT 18 Alkaline Phosphatase 83 Total Protein 6.7 Albumin 2.8 L 3.3 L Globulin 3.4 Albumin/Globulin Ratio 1.0 PG Care Time/CCT Total # of Minutes Spent Total Time Spent with Patient: Total time spent is greater than 50% in coordination of care (as documented) at patient's floor/unit and/or counseling patient: Coding Level of Care Code 80320 SUB INP/OBS CARE 3/50MIN Diagnoses Acute kidney injury N17.9 Anemia D64.9 Anemia type: other cause Hyponatremia E87.1 Stage 3b chronic kidney disease N18.32 Pasteurella infection A28.0 CML (chronic myelocytic leukemia) C92.10 Bilateral edema of lower extremity R60.0 Cirrhosis K74.60 (2) Anemia Anemia type: other cause
[2023-11-02] MEDS ORDERED: EPOETIN ALFA 10,000 UNITS/ML VIAL SQ ONE (11:39)
[2023-11-02] MEDS: OCTREOTIDE ACETATE 100 MCG/ML VIAL SQ SCH ×2 (12:47→22:26)
[2023-11-02] MEDS: LEVOTHYROXINE SODIUM 137 MCG TABLET PO SCH (22:23)
[2023-11-03] MEDS: OCTREOTIDE ACETATE 100 MCG/ML VIAL SQ SCH ×2 (05:18→14:37)
[2023-11-03] MEDS: ALBUMIN 25% 25 GM/100 ML VIAL IV SCH (06:26)
[2023-11-03 06:43] LABS: Hematocrit (blood only) 22.8 % (42.0-52.0); Hemoglobin 7.4 g/dl (14.0-18.0); Mean Corpuscular Hgb Conc 32.5 g/dL (32.0-36.0); Mean Corpuscular Volume 98.7 fL (80.0-100.0); Nucleated RBC # (auto) 0.04 K/uL (0.00-0.12); Nucleated RBC % (auto) 0.2 %; Platelet Count 85 K/uL (130-400); RDW Coefficient of Variation 16.8 % (11.5-14.5); RDW Standard Deviation 60.2 fL (36.4-46.3); Red Blood Count 2.31 M/uL (4.70-6.10); White Blood Count 17.25 K/ul (4.8-10.8)
[2023-11-03 07:23] LABS: Albumin Globulin Ratio 1.2 (0.9-2); Albumin Level 3.8 gm/dl (3.4-5.0); BUN Creatinine Ratio 19.7 (10-20); Bilirubin,Total 5.6 mg/dl (0.2-1.0); Calcium 8.7 mg/dl (8.6-10.3); Creatinine Clr Calc Pharmacy 18.7 ml/min; Est GFR (African American) 12.4 ml/min; Est GFR (Non-African American) 10.7 ml/min; Globulin 3.2 gm/dl (2.5-4.0); Magnesium 2.9 mg/dl (1.7-2.4); Potassium 5.4 mmol/L (3.5-5.1)
[2023-11-03 07:24] LABS: INR 2.5 (0.9-1.1)
[2023-11-03 07:47] LABS: Basophils # (auto) 0.04 K/uL (0.00-0.20); Basophils % (auto) 0.2 %; Eosinophils # (auto) 0.05 K/uL (0.00-0.50); Eosinophils % (auto) 0.3 %; Immature Granulocytes # (auto) 0.98 K/uL (0.01-0.20); Immature Granulocytes % (auto) 5.7 %; Lymphocytes # (auto) 0.91 K/uL (1.20-3.40); Lymphocytes % (auto) 5.3 %; Monocytes # (auto) 1.19 K/uL (0.11-0.59); Monocytes % (auto) 6.9 %; Neutrophils # (auto) 14.08 K/uL (1.40-6.50); Neutrophils % (auto) 81.6 %
[2023-11-03 07:48] LABS: Echinocytes 1+
[2023-11-03] MEDS: IRON SUCROSE 200 MG in 0.9 % SODIUM CHLORIDE 100 ML IV SCH (09:40)
[2023-11-03] MEDS: allopurinoL 300 MG TAB PO SCH (09:46)
[2023-11-03] MEDS: FOLIC ACID 1 MG TAB PO SCH (09:46)
[2023-11-03] MEDS: CHOLECALCIFEROL 1,000 UNITS 25 MCG TAB PO SCH (09:46)
[2023-11-03] MEDS: LACTULOSE SYRUP 30 GM/45 ML UDP PO SCH (09:47)
[2023-11-03] MEDS: MAGNESIUM OXIDE 400 MG TAB PO SCH (09:48)
[2023-11-03] MEDS: SODIUM CHLORIDE 1 GM TABLET PO SCH (09:48)
[2023-11-03] MEDS: rifAXIMin 550 MG TABLET PO SCH (09:48)
[2023-11-03] MEDS: PANTOprazole 40 MG TAB PO SCH (09:48)
[2023-11-03] MEDS ORDERED: HYDROCORTISONE SOD 100 MG in SYRINGE 0 ML IV ONE (11:00)
[2023-11-03] MEDS ORDERED: levoFLOXacin/D5W 500 MG/100 ML BAG IV SCH (11:00)
[2023-11-03] MEDS ORDERED: CARBOHYDRATES FOR HYPOGLYCEMIA PO PRN (11:22)
[2023-11-03] MEDS ORDERED: GLUCOSE 40% GEL 15 GM TUBE PO PRN (11:22)
[2023-11-03] MEDS ORDERED: GLUCAGON FOR INJ 1 MG VIAL SQ PRN (11:22)
[2023-11-03] MEDS ORDERED: DEXTROSE 50% 50 ML SYRINGE IV PRN (11:22)
[2023-11-03] MEDS ORDERED: GLUCOSE 10 TAB/TUBE PO PRN (11:22)
[2023-11-03] MEDS: MESALAMINE 1 EA PO SCH (11:35)
--- NOTE | 2023-11-03 12:12 | Nephrology Progress Note ---
Date of Service November 03, 2023 Assessment & Plan (1) Acute kidney injury: Plan: Oliguric. Urine output dropped significantly. Clinical presentation concerning for HRS1. Prognosis is very poor. Unfortunately, dialysis is not likely to provide any benefit. Family has expressed understanding. IV albumin will be continued with Octreotide for now but family is considering transition to comfort measures. Medications are appropriately dosed for kidney function. (2) Anemia: Plan: Venofer 200 mg IV x 3 days completedi. Epogen 53427 units x 1 provided yesterday. (3) Hyponatremia: Plan: Hypervolemic. Some improvement noted in past 24 hours. Sodium is reasonably acceptable this AM. Defer any additional hypertonic boluses for now. Remains on albumin and octreotide. (4) Cirrhosis: Plan: MELD >36. Prognosis is unfortunately very poor. Goals of care are being updated by family. Admission and Anticipated Discharge Date Admission Date: October 28, 2023 Subjective I met with Mr. Bashir's and son at the bedside this morning. I also discussed the plan of care with Dr. Reynoso. Mr. Bashir is completely unresponsive. He is bleeding from his mouth. Review of Systems Review of Systems: Unobtainable due to reduced consciousness Physical Exam Constitutional: + ill appearing and + altered mental sta tus; no acute distress Eyes: + anicteric sclerae Neck: normal visual inspection Respiratory: no respiratory distress Auscultation: lungs clear to auscultation bilaterally, + diminished lung sounds and + rhonchi Cardiovascular: Rate/Rhythm: regular rate and regular rhythm Extremities: + edema Gastrointestinal (Abdomen): Inspection/Auscultation: + abdomen distended Skin: + lesion, + crusts and + dry skin Neurologic: no focal motor deficits Psychiatric: Orientation: + not alert and + not oriented x 3 Results & Data Vital Signs (Past 12 Hours) Vital Signs Temp Pulse Pulse Pulse Pulse Resp BP 11/03/23 11:56 36.2 C L 70 16 114/56 L 11/03/23 07:52 11/03/23 07:50 36.2 C L 69 16 93/45 L 11/03/23 07:22 36.2 C L 11/03/23 07:14 66 11/03/23 05:08 35.4 C L 74 12 101/44 L 11/03/23 02:05 35.4 C L 70 14 105/56 L 11/03/23 00:24 35.1 C L Pulse Ox O2 Del Method O2 Flow Rate 11/03/23 11:56 93 Nasal Cannula 3 11/03/23 07:52 Nasal Cannula 3.5 11/03/23 07:50 93 Nasal Cannula 3 11/03/23 07:22 11/03/23 07:14 11/03/23 05:08 94 Nasal Cannula 3.5 11/03/23 02:05 94 Nasal Cannula 3.5 11/03/23 00:24 Laboratory Results Laboratory Results - last 24 hr 11/02/23 11/02/23 11/03/23 15:18 21:14 02:18 WBC RBC Hgb Hct MCV MCH MCHC RDW Std Deviation RDW Coeff of Howie Plt Count MPV Immature Gran % (Auto) Neut % (Auto) Lymph % (Auto) [place] % (Auto) Eos % (Auto) Baso % (Auto) Neut # (Auto) Lymph # (Auto) [place] # (Auto) Eos # (Auto) Baso # (Auto) Immature Gran # (Auto) Absolute Nucleated RBC Nucleated RBC % (auto) Echinocytes PT INR Sodium 126 L 126 L Potassium Chloride Carbon Dioxide Anion Gap BUN Creatinine Est Cr Clr Drug Dosing Est GFR ( Amer) Est GFR (Non-Af Amer) BUN/Creatinine Ratio Glucose POC Glucose Calcium Magnesium Total Bilirubin AST ALT Alkaline Phosphatase C-Reactive Protein Total Protein Albumin Globulin Albumin/Globulin Ratio Procalcitonin Urine Osmolality 308 L Ur Random Sodium 101 Ur Random Potassium 12.4 11/03/23 11/03/23 11/03/23 06:19 11:15 11:16 WBC 17.25 H RBC 2.31 L Hgb 7.4 L Hct 22.8 L MCV 98.7 MCH 32.0 MCHC 32.5 RDW Std Deviation 60.2 H RDW Coeff of Howie 16.8 H Plt Count 85 L MPV 12.0 Immature Gran % (Auto) 5.7 Neut % (Auto) 81.6 Lymph % (Auto) 5.3 [place] % (Auto) 6.9 Eos % (Auto) 0.3 Baso % (Auto) 0.2 Neut # (Auto) 14.08 H Lymph # (Auto) 0.91 L [place] # (Auto) 1.19 H Eos # (Auto) 0.05 Baso # (Auto) 0.04 Immature Gran # (Auto) 0.98 H Absolute Nucleated RBC 0.04 Nucleated RBC % (auto) 0.2 Echinocytes 1+ PT 26.0 H INR 2.5 H Sodium 128 L Potassium 5.4 H Chloride 98 Carbon Dioxide 17 L Anion Gap 13 H BUN 102 H Creatinine 5.18 H* D Est Cr Clr Drug Dosing 18.7 Est GFR ( Amer) 12.4 Est GFR (Non-Af Amer) 10.7 BUN/Creatinine Ratio 19.7 Glucose 68 L POC Glucose 58 L* 48 L* Calcium 8.7 Magnesium 2.9 H Total Bilirubin 5.6 H AST 50 H ALT 18 Alkaline Phosphatase 84 C-Reactive Protein 8.89 H Total Protein 7.0 Albumin 3.8 Globulin 3.2 Albumin/Globulin Ratio 1.2 Procalcitonin 30.73 H Urine Osmolality Ur Random Sodium Ur Random Potassium 11/03/23 11:49 WBC RBC Hgb Hct MCV MCH MCHC RDW Std Deviation RDW Coeff of Howie Plt Count MPV Immature Gran % (Auto) Neut % (Auto) Lymph % (Auto) [place] % (Auto) Eos % (Auto) Baso % (Auto) Neut # (Auto) Lymph # (Auto) [place] # (Auto) Eos # (Auto) Baso # (Auto) Immature Gran # (Auto) Absolute Nucleated RBC Nucleated RBC % (auto) Echinocytes PT INR Sodium Potassium Chloride Carbon Dioxide Anion Gap BUN Creatinine Est Cr Clr Drug Dosing Est GFR ( Amer) Est GFR (Non-Af Amer) BUN/Creatinine Ratio Glucose POC Glucose 115 H Calcium Magnesium Total Bilirubin AST ALT Alkaline Phosphatase C-Reactive Protein Total Protein Albumin Globulin Albumin/Globulin Ratio Procalcitonin Urine Osmolality Ur Random Sodium Ur Random Potassium PG Care Time/CCT Total # of Minutes Spent Total Time Spent with Patient: Total time spent is greater than 50% in coordination of care (as documented) at patient's floor/unit and/or counseling patient: Coding Level of Care Code 74761 SUB INP/OBS CARE 3/50MIN Diagnoses Acute kidney injury N17.9 Anemia D64.9 Anemia type: other cause Hyponatremia E87.1 Cirrhosis K74.60 (2) Anemia Anemia type: other cause
[2023-11-03] MEDS ORDERED: MoRPHine SULFATE 2 MG/ML CARP IV STA (14:35)
--- NOTE | 2023-11-03 17:13 | Discharge Summary ---
Date of Service November 03, 2023 Admission HPI Per Admitting Provider The patient is a 68-year-old male with a past medical history including CML in remission, hepatic encephalopathy, right heart failure, supraventricular tachycardia, status post insertion of dialysis catheter, ANNA on CKD, chronic venous insufficiency, hypertension, mild aortic stenosis, and trifascicular block. He presents to the emergency department with the above symptoms. The patient appears lethargic, but is not confused or disoriented Principal Diagnosis pt of complications of hepatorenal syndrome, worsened by sepsis poa, on 11/03/23 at 1438 hours Discharge Exam pt pronounced after no audible heart tones or spontaneous respirations prior to and during code resuscitation, family did not want to pursue advanced airway or life support procedures Discharge Data Allergies Allergy/AdvReac Type Severity Reaction Status Date / Time bee venom protein (honey bee) Allergy Severe DYSPNEA;SWE Verified 10/28/23 10:17 LLING latex Allergy Intermediate Rash Verified 10/28/23 10:17 Penicillins Allergy Unknown HAPPENED Verified 10/28/23 10:17 A CHILD Consultations 10/28/23 03:54 ED Decision to Admit Stat 10/28/23 05:21 Consult Hematology Routine Consult Nephrology Routine Hospital Course (1) : Pt of Hepatorenal syndrome, influenced by sepsis poa and previous history of CML notation contained if for record of the hospital stay (2) Pasteurella infection: Blood culture obtained October 28 is positive for Pasteurella. Family adamantly denies any dog or cat bites. No overt pneumonia. Antibiotic has been switched to Levaquin, LD 11/13/23 Repeat blood cultures obtained October 30 are negative to date. (3) Hepatic encephalopathy: Secondary to underlyiung cirrhosis Treated with lactulose which is the likely cause of the diarrhea. Ammonia improved (4) Right heart failure: Chronic cor pulmonale. secondary to chronic diastolic CHF. not with acute exacerbation that this time, comorbid hyponatremia and ANNA on CKD3 (5) Stage 3b chronic kidney disease: Acute on chronic kidney disease stage III. progressive and worsening, Nephrology managing IVF and Hyponatremia, hypertonic saline again on 11/02 progressing ANNA with liver disease wonder hepatorenal syndrome will give 8 doses of albumin 25 g and octreotide pt with worsening anemia, has anemia of chronic disease, is also iron deficient, venofer 200mg MELD score is 37 with 52.6% 3 month mortality (6) Ulcerative colitis: Chronic. Chronic diarrhea can be attributed to lactulose therapy. typically on mesalamine (7) CML (chronic myelocytic leukemia): . overall impacts infectious etiology Total Time Total Time Spent Total Time Spent (In Minutes): It required greater than 30 minutes to prepare this patient for discharge. Discharge Plan Discharge Items Patient Disposition: Reason For Visit: SEPSIS, CML Follow-up/Referrals: Francia Ricardo DO [Primary Care Provider] - Medications and DC Order Prescriptions: No Action lactulose 10 gram/15 mL (15 mL) solution 30 g PO TID Qty: 750 6RF Rx Instructions: please send for 1 months supply and 6 refills levothyroxine 137 mcg tablet 137 mcg PO QPM Qty: 90 3RF Rx Instructions: Takes 2 hrs after supper mesalamine 0.375 gram capsule,extended release 24hr 1.5 g PO QDL Qty: 360 3RF Rx Instructions: TAKES 4 CAPS. Xifaxan 550 mg tablet 550 mg PO BID Qty: 180 3RF spironolactone 100 mg tablet 100 mg PO QAM Qty: 90 3RF bumetanide 2 mg tablet 2 mg PO BID Qty: 180 3RF allopurinol 300 mg tablet 300 mg PO DAILY Qty: 90 2RF triamcinolone acetonide 0.1 % ointment 1 applic topical DAILY PRN (Reason: Skin Irritation) Qty: 80 1RF Rx Instructions: Apply topically to legs daily PRN epinephrine [EpiPen 2-Sb] 0.3 mg/0.3 mL auto-injector 0.3 mg IM Q10M PRN (Reason: anaphylaxis) Qty: 2 2RF Rx Instructions: PER PT "OUT DATED, NEED A NEW ONE". pantoprazole 40 mg tablet,delayed release (DR/EC) 40 mg PO BID Qty: 180 1RF cholecalciferol (vitamin D3) 25 mcg (1,000 unit) Capsule 3,000 unit PO QAM Qty: 0 0RF folic acid 1 mg Tablet 1 mg PO QAM Qty: 30 0RF metoprolol succinate 25 mg tablet extended release 24 hr 12.5 mg PO DAILY Rx Instructions: 0.5 tab daily menthol-zinc oxide [Calmoseptine] 0.44-20.6 % ointment 1 applic EXT DIRECTED magnesium oxide 400 mg (241.3 mg magnesium) Tablet 400 mg PO BID Qty: 60 0RF Admission Data Admit Date/Time: 10/28/23 04:34 Attending Provider: John Reynoso Admit Provider: Gilberto Tee Primary Care Provider: Francia Ricardo Other Providers: Gilberto Tee; Juliette Lima; Susan Giraldo; Kvng Salamanca [facility] [place] Coding Level of Care Code 35897 INP/OBS DISCH >30 MIN Diagnoses R99 Pasteurella infection A28.0 Hepatic encephalopathy K76.82 Right heart failure I50.810 Stage 3b chronic kidney disease N18.32 Ulcerative colitis K51.90 CML (chronic myelocytic leukemia) C92.10
[2023-11-04 13:32] LABS: Albumin 3.2 g/dL (3.8-4.8); Alpha 1 Globulin 0.3 g/dL (0.2-0.3); Alpha 2 Globulin 0.6 g/dL (0.5-0.9); Beta-1-Globulin 0.3 g/dL (0.4-0.6); Beta-2-Globulin 0.3 g/dL (0.2-0.5); Gamma Globulin 2.1 g/dL (0.8-1.7); Monoclonal Protein Band 1 DNR g/dL (NONE DETECTED); Monoclonal Protein Band 2 DNR g/dL (NONE DETECTED); Monoclonal Protein Band 3 DNR g/dL (NONE DETECTED); Total Protein 6.9 g/dL (6.1-8.1)
[2023-11-04 14:38] LABS: Uric Acid, Random Urine 4 mg/dL
== END 2023-11-03 14:38 | disposition expired | DRG 871 ==
LOC: ED 00:43 → EDINP 04:34 → SUATTDRO 04:34 → EDINP 05:20 → 2W 10-29 02:14